=== PATIENT | female | born 1945 | race Caucasian/White ===

== ENCOUNTER 2017-05-19 14:13 | Inpatient (IN) | payer MEDICARE ==
[~2017-05-19] VITALS: Ht 167.6 cm; Wt 74.0 kg
[2017-05-19 15:30] VITALS: BP 137/82
[2017-05-19] MEDS ORDERED: ACETAMINOPHEN 325 MG TABLET PO PRN (16:15)
[2017-05-19] MEDS ORDERED: MAGNESIUM HYDROXIDE 2,400 MG/30 ML ORAL.SUSP. PO PRN (16:15)
[2017-05-19] MEDS ORDERED: METHYL SALICYLATE/MENTHOL TOPICAL OINTMENT 29GM TUBE. TP PRN (16:15)
[2017-05-19 16:37] VITALS: BP 135/82
[2017-05-19] MEDS ORDERED: GABA600T2 PO (17:01)
[2017-05-19] MEDS ORDERED: MULT-245 PO (17:01)
[2017-05-19] MEDS ORDERED: OMEG-44 PO (17:01)
[2017-05-19] MEDS ORDERED: ACET325T9 PO (17:01)
[2017-05-19] MEDS ORDERED: LIDO5JEL3 TOP (17:01)
[2017-05-19] MEDS ORDERED: ASPI1TAB62 PO (17:01)
[2017-05-19] MEDS ORDERED: LAMO150T2 PO (17:01)
[2017-05-19] MEDS ORDERED: IBUP100O25 PO (17:01)
[2017-05-19] MEDS ORDERED: NYST15CR TP (17:01)
[2017-05-19] MEDS ORDERED: ONDA4TAB11 PO (17:01)
[2017-05-19] MEDS ORDERED: MEMA10TA PO (17:01)
[2017-05-19] MEDS ORDERED: HYDR25TA PO (17:01)
[2017-05-19] MEDS ORDERED: SODI30SP NS (17:01)
[2017-05-19] MEDS ORDERED: MIRT15TA3 PO (17:01)
[2017-05-19] MEDS ORDERED: CLON1TAB3 PO (17:01)
[2017-05-19] MEDS ORDERED: KETO120S TP (17:01)
[2017-05-19] MEDS ORDERED: NYST1000 PO (17:01)
[2017-05-19] MEDS ORDERED: HYDR453.4 TP (17:01)
[2017-05-19] MEDS ORDERED: GABA-585 PO (17:01)
[2017-05-19] MEDS ORDERED: POLY17PO5 PO (17:01)
[2017-05-19] MEDS ORDERED: QUET400T4 PO (17:01)
[2017-05-19] MEDS ORDERED: CHOL10003 PO (17:01)
[2017-05-19] MEDS ORDERED: VENL150C PO (17:01)
[2017-05-19] MEDS ORDERED: FLUT16SP21 NS (17:01)
[2017-05-19] MEDS ORDERED: DONE5TAB7 PO (17:01)
[2017-05-19] MEDS ORDERED: PROP15DR40 EACHEYE ×2 (17:01)
[2017-05-19] MEDS ORDERED: GUAI600T47 PO (17:01)
[2017-05-19] MEDS ORDERED: FLUTICASONE 50MCG/NASAL SPRAY 16GM BOTTLE. NS PRN (18:15)
[2017-05-19] MEDS ORDERED: NYSTATIN 100,000 UNIT/GM TOPICAL CREAM 15GM TUBE. TP PRN (18:15)
[2017-05-19] MEDS ORDERED: LIDOCAINE 2% TP PRN (18:15)
[2017-05-19] MEDS ORDERED: APPLICATOR TP PRN (18:15)
[2017-05-19] MEDS ORDERED: GABAPENTIN 100 MG CAPSULE. PO PRN (18:15)
--- NOTE | 2017-05-19 18:28 | EKG ---
[address] [address] Test Date: 2017-05-19 Test Time: 18:25:34 Pat Name: STANLEY WALTERS Department: Room: [address] [place] [address] Gender: F Window Treatment Installer: : [id number] Requested By: BRIAN CHAPA Order Number: [id number] Reading MD: Darryl Arellano MD Measurements Intervals [place] Rate: 100 P: -136 IN: 122 QRS: 5 QRSD: 82 T: 36 QT: 332 QTc: 431 Interpretive Statements SINUS RHYTHM CANNOT RULE OUT INFERIOR INFARCT Electronically Signed On 05-23-2017 17:14:47 [employer]SEM[employer]ER FOR [employer] OVER MACHINE by Darryl Arellano MD
[2017-05-19] MEDS ORDERED: ONDANSETRON ODT 4 MG TAB.RAPDIS PO PRN (19:00)
[2017-05-19] MEDS ORDERED: POLYVINYL ALCOHOL 1.4% OPHTH SOLUTION 15ML BOTTLE. OU PRN (19:00)
[2017-05-19] MEDS: VENLAFAXINE 50 MG TABLET. PO SCH (20:12)
[2017-05-19] MEDS: OMEGA-3 FATTY ACIDS/FISH OIL 1,000 MG CAPSULE. PO SCH (20:12)
[2017-05-19] MEDS: QUEtiapine 100 MG TABLET. PO SCH (20:12)
[2017-05-19] MEDS: CHOLECALCIFEROL (VITAMIN D3) 1,000 UNIT TABLET PO SCH (20:12)
[2017-05-19] MEDS: GABAPENTIN 300 MG CAPSULE. PO SCH (20:12)
[2017-05-19] MEDS: DONEPEZIL HCL 5 MG TABLET. PO SCH (20:13)
[2017-05-19] MEDS: MIRTAZAPINE 15 MG TABLET PO SCH (20:13)
[2017-05-19] MEDS: clonazePAM 1 MG TABLET PO SCH (20:13)
[2017-05-19] MEDS: lamoTRIgine 150 MG TABLET. PO SCH (20:13)
[2017-05-19] MEDS ORDERED: LIDOCAINE 2% TOPICAL JELLY 5GM TUBE. TP PRN (20:15)
[2017-05-19] MEDS ORDERED: NON FORMULARY ITEM (Propylene Glycol/Peg 400 (Systane 0.3-0.4% Eye Drops) 1 DROP) EACHEYE SCH (21:00)
[2017-05-19 21:01] LABS: BASO % 1 % (0-3); EOS # 0.1 x10^3/uL (0.0-0.7); EOS % 2 % (0-3); HEMATOCRIT 37.6 % (36.0-47.0); HEMOGLOBIN 12.6 g/dL (12.0-15.5); LYMPH # 1.2 x10^3/uL (1.0-4.8); LYMPH % 24 % (24-48); MEAN CORPUSCULAR HEMOGLOBIN 27 pg (25-35); MEAN CORPUSCULAR HGB CONC 33 g/dL (31-37); MEAN CORPUSCULAR VOLUME 82 fL (79-100); MONO # 0.5 x10^3/uL (0.0-1.1); MONO % 9 % (0-9); NEUT # 3.3 x10^3uL (1.8-7.7); NEUT % 64 % (31-73); PLATELET COUNT 286 x10^3/uL (140-400); RED BLOOD COUNT 4.58 x10^6/uL (3.50-5.40); RED CELL DISTRIBUTION WIDTH 15.8 % (11.5-14.5); WHITE BLOOD COUNT 5.2 x10^3/uL (4.0-11.0)
[2017-05-19 21:24] LABS: ALBUMIN 3.6 g/dL (3.4-5.0); CALCIUM 9.5 mg/dL (8.5-10.1); CREATININE 1.1 mg/dL (0.6-1.0); GFR 48.7; MAGNESIUM 2.2 mg/dL (1.8-2.4); POTASSIUM 4.2 mmol/L (3.5-5.1); TOTAL BILIRUBIN 0.2 mg/dL (0.2-1.0); TOTAL PROTEIN 7.2 g/dL (6.4-8.2)
[2017-05-20] MEDS: POLYETHYLENE GLYCOL 3350 17 GM PACKET. PO SCH ×2 (00:14→20:17)
[2017-05-20 06:04] VITALS: BP 114/53
[2017-05-20] MEDS: lamoTRIgine 150 MG TABLET. PO SCH ×2 (07:37→20:17)
[2017-05-20] MEDS: GABAPENTIN 300 MG CAPSULE. PO SCH ×4 (07:37→20:17)
[2017-05-20] MEDS: clonazePAM 1 MG TABLET PO SCH ×2 (07:37→20:18)
[2017-05-20] MEDS: VENLAFAXINE 50 MG TABLET. PO SCH ×2 (07:37→14:00)
[2017-05-20] MEDS: MEMANTINE 5 MG TABLET. PO SCH (07:38)
[2017-05-20] MEDS: MULTIVITAMIN with MINERAL TABLET. PO SCH (07:38)
--- NOTE | 2017-05-20 09:59 | PDOC ---
Exam Note: Greg Note: Please also refer to the separate dictated note~for this date of service dictated separately.~Patient seen individually. Discussed the patient with Nursing staff reviewed the chart.~Reviewed interim history and current functioning. Reviewed vital signs,~Labs/ Radiology~and current medications noted below. Continue current treatment with the changes noted in the dictated addendum note. This is a late entry for date of service May 19, 2017 Assessment: Vital Signs: VS - Last 72 Hours, by Label Date Time Temp Pulse Resp B/P (MAP) Pulse Ox O2 Delivery O2 Flow Rate FiO2 05/20/17 06:04 97.9 88 18 114/53 (73) 93 05/19/17 16:37 98.8 100 18 135/82 (99) 94 Room Air 05/19/17 15:30 97.7 95 20 137/82 (100) 95 Vital Signs Date Time Temp Pulse Resp B/P (MAP) Pulse Ox O2 Delivery O2 Flow Rate FiO2 05/20/17 06:04 97.9 88 18 114/53 (73) 93 05/19/17 16:37 Room Air I&O Intake and Output 05/20/17 07:00 Intake Total 360 ml Balance 360 ml Intake Oral 360 ml Labs: Laboratory Tests Test 05/19/17 20:50 White Blood Count 5.2 x10^3/uL (4.0-11.0) Red Blood Count 4.58 x10^6/uL (3.50-5.40) Hemoglobin 12.6 g/dL (12.0-15.5) Hematocrit 37.6 % (36.0-47.0) Mean Corpuscular Volume 82 fL (79-100) Mean Corpuscular Hemoglobin 27 pg (25-35) Mean Corpuscular Hemoglobin Concent 33 g/dL (31-37) Red Cell Distribution Width 15.8 % (11.5-14.5) H Platelet Count 286 x10^3/uL (140-400) Neutrophils (%) (Auto) 64 % (31-73) Lymphocytes (%) (Auto) 24 % (24-48) Monocytes (%) (Auto) 9 % (0-9) Eosinophils (%) (Auto) 2 % (0-3) Basophils (%) (Auto) 1 % (0-3) Neutrophils # (Auto) 3.3 x10^3uL (1.8-7.7) Lymphocytes # (Auto) 1.2 x10^3/uL (1.0-4.8) Monocytes # (Auto) 0.5 x10^3/uL (0.0-1.1) Eosinophils # (Auto) 0.1 x10^3/uL (0.0-0.7) Basophils # (Auto) 0.0 x10^3/uL (0.0-0.2) Sodium Level 140 mmol/L (136-145) Potassium Level 4.2 mmol/L (3.5-5.1) Chloride Level 103 mmol/L (98-107) Carbon Dioxide Level 25 mmol/L (21-32) Anion Gap 12 (6-14) Blood Urea Nitrogen 16 mg/dL (7-20) Creatinine 1.1 mg/dL (0.6-1.0) H Estimated GFR (Cockcroft-Gault) 48.7 BUN/Creatinine Ratio 15 (6-20) Glucose Level 110 mg/dL (70-99) H Calcium Level 9.5 mg/dL (8.5-10.1) Magnesium Level 2.2 mg/dL (1.8-2.4) Total Bilirubin 0.2 mg/dL (0.2-1.0) Aspartate Amino Transferase (AST) 22 U/L (15-37) Alanine Aminotransferase (ALT) 24 U/L (14-59) Alkaline Phosphatase 109 U/L (46-116) Total Protein 7.2 g/dL (6.4-8.2) Albumin 3.6 g/dL (3.4-5.0) Albumin/Globulin Ratio 1.0 (1.0-1.7) Current Medications: Meds: Current Medications Acetaminophen (Tylenol) 650 mg PRN Q6HRS PRN PO PAIN / TEMP; Start 05/19/17 at 16:15; Stop 05/19/17 at 18:42; Status DC Multi-Ingredient Ointment (Analgesic [place]) 1 missael PRN QID PRN TP MUSCLE PAIN; Start 05/19/17 at 16:15 Al Hydroxide/Mg Hydroxide (Mylanta Plus Xs) 15 ml PRN AFTMEALHC PRN PO DYSPEPSIA; Start 05/19/17 at 16:15 Magnesium Hydroxide (Milk Of Magnesia) 2,400 mg PRN QHS PRN PO CONSTIPATION; Start 05/19/17 at 16:15 Clonazepam (KlonoPIN) 1 mg BID PO Last administered on 05/20/17at 07:37; Start 05/19/17 at 21:00 Donepezil HCl (Aricept) 5 mg QHS PO Last administered on 05/19/17at 20:13; Start 05/19/17 at 21:00 Lamotrigine (LaMICtal) 150 mg BID PO Last administered on 05/20/17at 07:37; Start 05/19/17 at 21:00 Memantine (Namenda) 5 mg DAILY PO Last administered on 05/20/17at 07:38; Start 05/20/17 at 09:00 Mirtazapine (Remeron) 15 mg QHS PO Last administered on 05/19/17at 20:13; Start 05/19/17 at 21:00 Quetiapine Fumarate (SEROquel) 400 mg QHS PO Last administered on 05/19/17at 20: 12; Start 05/19/17 at 21:00 Venlafaxine HCl (Effexor) 50 mg TID PO Last administered on 05/20/17at 07:37; Start 05/19/17 at 21:00 Acetaminophen (Tylenol) 650 mg PRN Q4HRS PRN PO PAIN; Start 05/19/17 at 18:15 Vitamin D (Vitamin D3) 3,000 unit QHS PO Last administered on 05/19/17at 20:12; Start 05/19/17 at 21:00 Fluticasone Propionate (Flonase) 2 spray PRN BID PRN NS ALLERGIES; Start at 18:15 Gabapentin (Neurontin) 100 mg PRN Q6HRS PRN PO ANXIETY; Start 05/19/17 at 18:15 Guaifenesin (Mucinex Er) 600 mg PRN BID PRN PO coughing; Start 05/19/17 at 18: 15 Ketoconazole (Nizoral 2% Shampoo) 1 missael QMONFR TP ; Start 05/26/17 at 16:00 Lidocaine HCl (Uro-Jet) 5 missael PRN Q4HRS PRN TP PAIN; Start 05/19/17 at 18:15; Stop 05/19/17 at 20:05; Status DC Nystatin (Mycostatin) 1 missael PRN BID PRN TP itching; Start 05/19/17 at 18:15 Polyethylene Glycol (miraLAX) 17 gm HS PO Last administered on 05/20/17at 00:14 ; Start 05/19/17 at 21:00 Gabapentin (Neurontin) 600 mg QID PO Last administered on 05/20/17at 07:37; Start 05/19/17 at 21:00 Multivitamins/ Calcium (Thera-M Plus) 1 tab DAILY PO Last administered on at 07:38; Start 05/20/17 at 09:00 Fish Oil (Fish Oil) 1,000 mg QHS PO Last administered on 05/19/17at 20:12; Start 05/19/17 at 21:00 Ondansetron HCl (Zofran Odt) 4 mg PRN Q6HRS PRN PO NAUSEA; Start 05/19/17 at 19 :00 Non-Formulary Medication 1 drop QID EACHEYE ; Start 05/19/17 at 21:00; Stop at 21:00; Status DC Artificial Tears (Artificial Tears) 1 drop PRN QID PRN OU DRY EYE; Start at 19:00 Lidocaine HCl (Xylocaine 2% Topical 5gm Tube) 1 missael PRN Q4HRS PRN TP PAIN; Start 05/19/17 at 20:15 Active Scripts Active Reported Vitamin D3 (Cholecalciferol (Vitamin D3)) 1,000 Unit Tablet 3,000 Unit PO QHS Systane 0.3-0.4% Eye Drops (Propylene Glycol/Peg 400) 15 Ml Drops 1 Drop EACHEYE QID Systane 0.3-0.4% Eye Drops (Propylene Glycol/Peg 400) 15 Ml Drops 1 Drop EACHEYE QIDPRN PRN Pain Reliever Plus Tablet (Aspirin/Acetaminophen/Caffeine) 1 Each Tablet 2 Each PO PRN PRN Ondansetron Hcl 4 Mg Tablet 4 Mg PO PRN Q6HRS PRN Nystatin 100,000 Unit/1 Ml Oral.susp 100,000 Unit PO Nystatin 15 Gm Cream..g. 1 Missael TP PRN BID PRN Miralax (Polyethylene Glycol 3350) 17 Gm Powd.pack 17 Gm PO HS Lidocaine Hcl 5 Ml Jel..ml. 5 Ml TOP PRN Q4HRS Ketoconazole 120 Ml Shampoo 1 Missael TP TWICE WEEKLY Ibuprofen 100 Mg/5 Ml Oral.susp 200 Mg PO PRN TID PRN Hydroxyzine Hcl 25 Mg Tablet 25 Mg PO PRN Q4HRS PRN Hydrocortisone 453.6 Gm Oint...g. 1 Missael TP PRN BID PRN Epa-Dha 720 Softgel ([place]-3/Dha/Epa/Fish Oil) 1 Each Capsule 1 Each PO QHS Donepezil Hcl 5 Mg Tablet 5 Mg PO QHS Saline Nasal [place] (Sodium Chloride) 30 Ml [place] 1 Spr NS PRN PRN Tylenol (Acetaminophen) 325 Mg Tablet 650 Mg PO PRN Q4HRS PRN Seroquel (Quetiapine Fumarate) 400 Mg Tablet 400 Mg PO HS Mirtazapine 15 Mg Tablet 15 Mg PO QHS Lamotrigine 150 Mg Tablet 150 Mg PO BID Fluticasone Propionate Nasal [place] (Fluticasone Propionate) 16 Gm [place].susp 2 [place] NS PRN BID PRN Effexor Xr (Venlafaxine Hcl) 150 Mg Cap.er.24h 150 Mg PO DAILY Multi Vitamin Daily (Multivitamin) 1 Each Tablet 1 Each PO DAILY Mucinex (Guaifenesin) 600 Mg Tablet.er 600 Mg PO PRN BID PRN Namenda (Memantine Hcl) 10 Mg Tablet 5 Mg PO DAILY Gabapentin 600 Mg Tablet 600 Mg PO QID Gabapentin 100 Mg Capsule 100 Mg PO PRN Q6HRS Clonazepam 1 Mg Tablet 1 Mg PO BID I have reviewed the current psychotropics carefully including drug interactions. Risk benefit ratio favors no change other than as noted in my dictated progress note. Diagnosis: Problems: (1) Major depression (2) Anxiety (3) Bipolar affective disorder, mixed (4) Anxiety disorder (5) Major depressive disorder, recurrent episode (6) Impulse control disorder BRIAN CHAPA MD May 20, 2017 09:58
[2017-05-20 11:08] LABS: THYROID STIM HORMONE (TSH) 2.483 uIU/mL (0.358-3.740)
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
[2017-05-20 12:12] LABS: T3 TOTAL 63 ng/dL (71-180); THYROXINE 4.7 ug/dL (4.5-12.0)
[2017-05-20] MEDS ORDERED: POLYVINYL ALCOHOL 1.4% OPHTH SOLUTION 15ML BOTTLE. OU PRN (14:59)
[2017-05-20] MEDS ORDERED: LIDOCAINE 2% TOPICAL JELLY 5GM TUBE. TP PRN (14:59)
[2017-05-20 16:20] VITALS: BP 140/72
[2017-05-20 20:08] LABS: HEMOGLOBIN A1C 4.8 % (4.8-5.6)
[2017-05-20] MEDS: DONEPEZIL HCL 5 MG TABLET. PO SCH (20:16)
[2017-05-20] MEDS: CHOLECALCIFEROL (VITAMIN D3) 1,000 UNIT TABLET PO SCH (20:16)
[2017-05-20] MEDS: OMEGA-3 FATTY ACIDS/FISH OIL 1,000 MG CAPSULE. PO SCH (20:16)
[2017-05-20] MEDS: MIRTAZAPINE 15 MG TABLET PO SCH (20:17)
[2017-05-20] MEDS: QUEtiapine 100 MG TABLET. PO SCH (20:18)
[2017-05-20] MEDS: lamoTRIgine 100 MG TABLET. PO SCH (21:00)
[2017-05-20 21:42] LABS: BACTERIA,URINE 0 /HPF (0-FEW); BILIRUBIN,URINE NEG (NEG); CLARITY,URINE HAZY; COLOR,URINE YELLOW; GLUCOSE,URINE NEG (NEG); NITRITE,URINE NEG (NEG); SQUAMOUS EPITHELIAL CELL,UR FEW /LPF; UROBILINOGEN,URINE 0.2 mg/dL (0.2 mg/dL); WBC,URINE 20-40 /HPF (0-4)
[2017-05-20 21:43] LABS: AMORPHOUS SEDIMENT,UR PRESENT /HPF
--- NOTE | 2017-05-20 22:26 | PDOC ---
Exam Note: Greg Note: Please also refer to the separate dictated note~for this date of service dictated separately.~Patient seen individually. Discussed the patient with Nursing staff reviewed the chart.~Reviewed interim history and current functioning. Reviewed vital signs,~Labs/ Radiology~and current medications noted below. Continue current treatment with the changes noted in the dictated addendum note Assessment: Vital Signs: Vital Signs Date Time Temp Pulse Resp B/P (MAP) Pulse Ox O2 Delivery O2 Flow Rate FiO2 05/20/17 16:20 97.6 110 20 140/72 (94) 94 05/19/17 16:37 Room Air I&O Intake and Output 05/20/17 07:00 Intake Total 360 ml Balance 360 ml Intake Oral 360 ml Labs: Laboratory Tests Test 05/20/17 19:28 Urine Collection Type Unknown Urine Color Yellow Urine Clarity Hazy Urine pH 7.0 Urine Specific [place] 1.015 Urine Protein Neg (NEG-TRACE) Urine Glucose (UA) Neg mg/dL (NEG) Urine Ketones (Stick) Neg mg/dL (NEG) Urine Blood Neg (NEG) Urine Nitrite Neg (NEG) Urine Bilirubin Neg (NEG) Urine Urobilinogen Dipstick 0.2 mg/dL (0.2 mg/dL) Urine Leukocyte Esterase Trace (NEG) Urine RBC 1-2 /HPF (0-2) Urine WBC 20-40 /HPF (0-4) Urine Squamous Epithelial Cells Few /LPF Urine Transitional Epithelial Cells Few /LPF Urine Amorphous Sediment Present /HPF Urine Bacteria 0 /HPF (0-FEW) Urine Mucus Slight /LPF Current Medications: Meds: Current Medications Acetaminophen (Tylenol) 650 mg PRN Q6HRS PRN PO PAIN / TEMP; Start 05/19/17 at 16:15; Stop 05/19/17 at 18:42; Status DC Multi-Ingredient Ointment (Analgesic [place]) 1 missael PRN QID PRN TP MUSCLE PAIN; Start 05/19/17 at 16:15 Al Hydroxide/Mg Hydroxide (Mylanta Plus Xs) 15 ml PRN AFTMEALHC PRN PO DYSPEPSIA; Start 05/19/17 at 16:15 Magnesium Hydroxide (Milk Of Magnesia) 2,400 mg PRN QHS PRN PO CONSTIPATION; Start 05/19/17 at 16:15 Clonazepam (KlonoPIN) 1 mg BID PO Last administered on 05/20/17at 20:18; Start 05/19/17 at 21:00 Donepezil HCl (Aricept) 5 mg QHS PO Last administered on 05/20/17at 20:16; Start 05/19/17 at 21:00 Lamotrigine (LaMICtal) 150 mg BID PO Last administered on 05/20/17at 20:17; Start 05/19/17 at 21:00; Stop 05/20/17 at 20:37; Status DC Memantine (Namenda) 5 mg DAILY PO Last administered on 05/20/17at 07:38; Start 05/20/17 at 09:00 Mirtazapine (Remeron) 15 mg QHS PO Last administered on 05/20/17at 20:17; Start 05/19/17 at 21:00 Quetiapine Fumarate (SEROquel) 400 mg QHS PO Last administered on 05/20/17at 20: 18; Start 05/19/17 at 21:00 Venlafaxine HCl (Effexor) 50 mg TID PO Last administered on 05/20/17at 14:00; Start 05/19/17 at 21:00; Stop 05/20/17 at 19:25; Status DC Acetaminophen (Tylenol) 650 mg PRN Q4HRS PRN PO PAIN; Start 05/19/17 at 18:15 Vitamin D (Vitamin D3) 3,000 unit QHS PO Last administered on 05/20/17at 20:16; Start 05/19/17 at 21:00 Fluticasone Propionate (Flonase) 2 spray PRN BID PRN NS ALLERGIES; Start at 18:15 Gabapentin (Neurontin) 100 mg PRN Q6HRS PRN PO ANXIETY; Start 05/19/17 at 18:15 ; Stop 05/20/17 at 19:25; Status DC Guaifenesin (Mucinex Er) 600 mg PRN BID PRN PO coughing; Start 05/19/17 at 18: 15 Ketoconazole (Nizoral 2% Shampoo) 1 missael QMONFR TP ; Start 05/26/17 at 16:00 Lidocaine HCl (Uro-Jet) 5 missael PRN Q4HRS PRN TP PAIN; Start 05/19/17 at 18:15; Stop 05/19/17 at 20:05; Status DC Nystatin (Mycostatin) 1 missael PRN BID PRN TP itching; Start 05/19/17 at 18:15 Polyethylene Glycol (miraLAX) 17 gm HS PO Last administered on 05/20/17at 20:17 ; Start 05/19/17 at 21:00 Gabapentin (Neurontin) 600 mg QID PO Last administered on 05/20/17at 17:21; Start 05/19/17 at 21:00; Stop 05/20/17 at 19:25; Status DC Multivitamins/ Calcium (Thera-M Plus) 1 tab DAILY PO Last administered on at 07:38; Start 05/20/17 at 09:00 Fish Oil (Fish Oil) 1,000 mg QHS PO Last administered on 05/20/17at 20:16; Start 05/19/17 at 21:00 Ondansetron HCl (Zofran Odt) 4 mg PRN Q6HRS PRN PO NAUSEA; Start 05/19/17 at 19 :00 Non-Formulary Medication 1 drop QID EACHEYE ; Start 05/19/17 at 21:00; Stop at 21:00; Status DC Artificial Tears (Artificial Tears) 1 drop PRN QID PRN OU DRY EYE; Start at 19:00; Stop 05/20/17 at 14:59; Status DC Lidocaine HCl (Xylocaine 2% Topical 5gm Tube) 1 missael PRN Q4HRS PRN TP PAIN; Start 05/19/17 at 20:15; Stop 05/20/17 at 14:59; Status DC Lidocaine HCl (Xylocaine 2% Topical 5gm Tube) 1 missael PRN Q4HRS PRN TP PAIN; Start 05/20/17 at 14:59 Artificial Tears (Artificial Tears) 1 drop PRN QID PRN OU DRY EYE; Start at 14:59 Gabapentin (Neurontin) 600 mg TID PO Last administered on 05/20/17at 20:17; Start 05/20/17 at 21:00 Duloxetine HCl (Cymbalta) 30 mg DAILY PO ; Start 05/21/17 at 09:00 Lamotrigine (LaMICtal) 150 mg DAILY PO ; Start 05/21/17 at 09:00 Lamotrigine (LaMICtal) 200 mg HS PO ; Start 05/20/17 at 21:00 Active Scripts Active Reported Vitamin D3 (Cholecalciferol (Vitamin D3)) 1,000 Unit Tablet 3,000 Unit PO QHS Systane 0.3-0.4% Eye Drops (Propylene Glycol/Peg 400) 15 Ml Drops 1 Drop EACHEYE QID Systane 0.3-0.4% Eye Drops (Propylene Glycol/Peg 400) 15 Ml Drops 1 Drop EACHEYE QIDPRN PRN Pain Reliever Plus Tablet (Aspirin/Acetaminophen/Caffeine) 1 Each Tablet 2 Each PO PRN PRN Ondansetron Hcl 4 Mg Tablet 4 Mg PO PRN Q6HRS PRN Nystatin 100,000 Unit/1 Ml Oral.susp 100,000 Unit PO Nystatin 15 Gm Cream..g. 1 Missael TP PRN BID PRN Miralax (Polyethylene Glycol 3350) 17 Gm Powd.pack 17 Gm PO HS Lidocaine Hcl 5 Ml Jel..ml. 5 Ml TOP PRN Q4HRS Ketoconazole 120 Ml Shampoo 1 Missael TP TWICE WEEKLY Ibuprofen 100 Mg/5 Ml Oral.susp 200 Mg PO PRN TID PRN Hydroxyzine Hcl 25 Mg Tablet 25 Mg PO PRN Q4HRS PRN Hydrocortisone 453.6 Gm Oint...g. 1 Missael TP PRN BID PRN Epa-Dha 720 Softgel ([place]-3/Dha/Epa/Fish Oil) 1 Each Capsule 1 Each PO QHS Donepezil Hcl 5 Mg Tablet 5 Mg PO QHS Saline Nasal [place] (Sodium Chloride) 30 Ml [place] 1 Spr NS PRN PRN Tylenol (Acetaminophen) 325 Mg Tablet 650 Mg PO PRN Q4HRS PRN Seroquel (Quetiapine Fumarate) 400 Mg Tablet 400 Mg PO HS Mirtazapine 15 Mg Tablet 15 Mg PO QHS Lamotrigine 150 Mg Tablet 150 Mg PO BID Fluticasone Propionate Nasal [place] (Fluticasone Propionate) 16 Gm [place].susp 2 [place] NS PRN BID PRN Effexor Xr (Venlafaxine Hcl) 150 Mg Cap.er.24h 150 Mg PO DAILY Multi Vitamin Daily (Multivitamin) 1 Each Tablet 1 Each PO DAILY Mucinex (Guaifenesin) 600 Mg Tablet.er 600 Mg PO PRN BID PRN Namenda (Memantine Hcl) 10 Mg Tablet 5 Mg PO DAILY Gabapentin 600 Mg Tablet 600 Mg PO QID Gabapentin 100 Mg Capsule 100 Mg PO PRN Q6HRS Clonazepam 1 Mg Tablet 1 Mg PO BID I have reviewed the current psychotropics carefully including drug interactions. Risk benefit ratio favors no change other than as noted in my dictated progress note. Diagnosis: Problems: (1) Major depression (2) Anxiety (3) Bipolar affective disorder, mixed (4) Anxiety disorder (5) Major depressive disorder, recurrent episode (6) Impulse control disorder BRIAN CHAPA MD May 20, 2017 22:26
[2017-05-21 06:33] VITALS: BP 102/68
[2017-05-21] MEDS: MEMANTINE 5 MG TABLET. PO SCH (07:59)
[2017-05-21] MEDS: GABAPENTIN 300 MG CAPSULE. PO SCH ×3 (07:59→19:38)
[2017-05-21] MEDS: MULTIVITAMIN with MINERAL TABLET. PO SCH (07:59)
[2017-05-21] MEDS: clonazePAM 1 MG TABLET PO SCH ×2 (08:00→19:39)
[2017-05-21] MEDS: DULoxetine HCL 30 MG CAPSULE.DR PO SCH (08:00)
[2017-05-21] MEDS: lamoTRIgine 150 MG TABLET. PO SCH (08:02)
[2017-05-21] MEDS ORDERED: FOSFOMYCIN TROMETHAMINE 3 GM PACKET PO ONE (15:00)
[2017-05-21 16:22] VITALS: BP 119/73
[2017-05-21] MEDS: PRENATAL MULTIVITAMIN TABLET. PO SCH (17:00)
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
[2017-05-21] MEDS: OMEGA-3 FATTY ACIDS/FISH OIL 1,000 MG CAPSULE. PO SCH (19:37)
[2017-05-21] MEDS: MIRTAZAPINE 15 MG TABLET PO SCH (19:37)
[2017-05-21] MEDS: QUEtiapine 100 MG TABLET. PO SCH (19:38)
[2017-05-21] MEDS: lamoTRIgine 100 MG TABLET. PO SCH (19:38)
[2017-05-21] MEDS: CHOLECALCIFEROL (VITAMIN D3) 1,000 UNIT TABLET PO SCH (19:38)
[2017-05-21] MEDS: DONEPEZIL HCL 5 MG TABLET. PO SCH (19:39)
[2017-05-21] MEDS: POLYETHYLENE GLYCOL 3350 17 GM PACKET. PO SCH (19:40)
[2017-05-21] MEDS: MAG HYDROX/AL HYDROX/SIMETH 30 ML ORAL.SUSP PO PRN (20:12)
--- NOTE | 2017-05-21 20:19 | PDOC ---
Exam Note: Greg Note: Please also refer to the separate dictated note~for this date of service dictated separately.~Patient seen individually. Discussed the patient with Nursing staff reviewed the chart.~Reviewed interim history and current functioning. Reviewed vital signs,~Labs/ Radiology~and current medications noted below. Continue current treatment with the changes noted in the dictated addendum note Assessment: Vital Signs: Vital Signs Date Time Temp Pulse Resp B/P (MAP) Pulse Ox O2 Delivery O2 Flow Rate FiO2 05/21/17 16:22 97.8 98 16 119/73 (88) 97 Room Air I&O Intake and Output 05/21/17 07:00 Intake Total 1200 ml Balance 1200 ml Intake Oral 1200 ml # Bowel Movements 2 Current Medications: Meds: Current Medications Acetaminophen (Tylenol) 650 mg PRN Q6HRS PRN PO PAIN / TEMP; Start 05/19/17 at 16:15; Stop 05/19/17 at 18:42; Status DC Multi-Ingredient Ointment (Analgesic [place]) 1 missael PRN QID PRN TP MUSCLE PAIN; Start 05/19/17 at 16:15 Al Hydroxide/Mg Hydroxide (Mylanta Plus Xs) 15 ml PRN AFTMEALHC PRN PO DYSPEPSIA; Start 05/19/17 at 16:15 Magnesium Hydroxide (Milk Of Magnesia) 2,400 mg PRN QHS PRN PO CONSTIPATION; Start 05/19/17 at 16:15 Clonazepam (KlonoPIN) 1 mg BID PO Last administered on 05/21/17at 19:39; Start 05/19/17 at 21:00 Donepezil HCl (Aricept) 5 mg QHS PO Last administered on 05/21/17at 19:39; Start 05/19/17 at 21:00 Lamotrigine (LaMICtal) 150 mg BID PO Last administered on 05/20/17at 20:17; Start 05/19/17 at 21:00; Stop 05/20/17 at 20:37; Status DC Memantine (Namenda) 5 mg DAILY PO Last administered on 05/21/17at 07:59; Start 05/20/17 at 09:00 Mirtazapine (Remeron) 15 mg QHS PO Last administered on 05/21/17at 19:37; Start 05/19/17 at 21:00 Quetiapine Fumarate (SEROquel) 400 mg QHS PO Last administered on 05/21/17at 19: 38; Start 05/19/17 at 21:00 Venlafaxine HCl (Effexor) 50 mg TID PO Last administered on 05/20/17at 14:00; Start 05/19/17 at 21:00; Stop 05/20/17 at 19:25; Status DC Acetaminophen (Tylenol) 650 mg PRN Q4HRS PRN PO PAIN; Start 05/19/17 at 18:15 Vitamin D (Vitamin D3) 3,000 unit QHS PO Last administered on 05/21/17at 19:38; Start 05/19/17 at 21:00 Fluticasone Propionate (Flonase) 2 spray PRN BID PRN NS ALLERGIES; Start at 18:15 Gabapentin (Neurontin) 100 mg PRN Q6HRS PRN PO ANXIETY; Start 05/19/17 at 18:15 ; Stop 05/20/17 at 19:25; Status DC Guaifenesin (Mucinex Er) 600 mg PRN BID PRN PO coughing; Start 05/19/17 at 18: 15 Ketoconazole (Nizoral 2% Shampoo) 1 missael QMONFR TP ; Start 05/26/17 at 16:00 Lidocaine HCl (Uro-Jet) 5 missael PRN Q4HRS PRN TP PAIN; Start 05/19/17 at 18:15; Stop 05/19/17 at 20:05; Status DC Nystatin (Mycostatin) 1 missael PRN BID PRN TP itching; Start 05/19/17 at 18:15 Polyethylene Glycol (miraLAX) 17 gm HS PO Last administered on 05/21/17at 19:40 ; Start 05/19/17 at 21:00 Gabapentin (Neurontin) 600 mg QID PO Last administered on 05/20/17at 17:21; Start 05/19/17 at 21:00; Stop 05/20/17 at 19:25; Status DC Multivitamins/ Calcium (Thera-M Plus) 1 tab DAILY PO Last administered on at 07:59; Start 05/20/17 at 09:00; Stop 05/21/17 at 14:59; Status DC Fish Oil (Fish Oil) 1,000 mg QHS PO Last administered on 05/21/17at 19:37; Start 05/19/17 at 21:00 Ondansetron HCl (Zofran Odt) 4 mg PRN Q6HRS PRN PO NAUSEA; Start 05/19/17 at 19 :00 Non-Formulary Medication 1 drop QID EACHEYE ; Start 05/19/17 at 21:00; Stop at 21:00; Status DC Artificial Tears (Artificial Tears) 1 drop PRN QID PRN OU DRY EYE; Start at 19:00; Stop 05/20/17 at 14:59; Status DC Lidocaine HCl (Xylocaine 2% Topical 5gm Tube) 1 missael PRN Q4HRS PRN TP PAIN; Start 05/19/17 at 20:15; Stop 05/20/17 at 14:59; Status DC Lidocaine HCl (Xylocaine 2% Topical 5gm Tube) 1 missael PRN Q4HRS PRN TP PAIN; Start 05/20/17 at 14:59 Artificial Tears (Artificial Tears) 1 drop PRN QID PRN OU DRY EYE; Start at 14:59 Gabapentin (Neurontin) 600 mg TID PO Last administered on 05/21/17at 19:38; Start 05/20/17 at 21:00 Duloxetine HCl (Cymbalta) 30 mg DAILY PO Last administered on 05/21/17at 08:00; Start 05/21/17 at 09:00 Lamotrigine (LaMICtal) 150 mg DAILY PO Last administered on 05/21/17at 08:02; Start 05/21/17 at 09:00 Lamotrigine (LaMICtal) 200 mg HS PO Last administered on 05/21/17at 19:38; Start 05/20/17 at 21:00 Prenat Multivit/ [place]/Iron/Folic Ac (Multivitamin ) 1 tab DAILYBFRSUP PO Last administered on 05/21/17at 17:00; Start 05/21/17 at 17:00 Fosfomycin Tromethamine (Monurol) 3 gm 1X ONCE PO Last administered on at 15:00; Start 05/21/17 at 15:00; Stop 05/21/17 at 15:01; Status DC Active Scripts Active Reported Vitamin D3 (Cholecalciferol (Vitamin D3)) 1,000 Unit Tablet 3,000 Unit PO QHS Systane 0.3-0.4% Eye Drops (Propylene Glycol/Peg 400) 15 Ml Drops 1 Drop EACHEYE QID Systane 0.3-0.4% Eye Drops (Propylene Glycol/Peg 400) 15 Ml Drops 1 Drop EACHEYE QIDPRN PRN Pain Reliever Plus Tablet (Aspirin/Acetaminophen/Caffeine) 1 Each Tablet 2 Each PO PRN PRN Ondansetron Hcl 4 Mg Tablet 4 Mg PO PRN Q6HRS PRN Nystatin 100,000 Unit/1 Ml Oral.susp 100,000 Unit PO Nystatin 15 Gm Cream..g. 1 Missael TP PRN BID PRN Miralax (Polyethylene Glycol 3350) 17 Gm Powd.pack 17 Gm PO HS Lidocaine Hcl 5 Ml Jel..ml. 5 Ml TOP PRN Q4HRS Ketoconazole 120 Ml Shampoo 1 Missael TP TWICE WEEKLY Ibuprofen 100 Mg/5 Ml Oral.susp 200 Mg PO PRN TID PRN Hydroxyzine Hcl 25 Mg Tablet 25 Mg PO PRN Q4HRS PRN Hydrocortisone 453.6 Gm Oint...g. 1 Missael TP PRN BID PRN Epa-Dha 720 Softgel ([place]-3/Dha/Epa/Fish Oil) 1 Each Capsule 1 Each PO QHS Donepezil Hcl 5 Mg Tablet 5 Mg PO QHS Saline Nasal [place] (Sodium Chloride) 30 Ml [place] 1 Spr NS PRN PRN Tylenol (Acetaminophen) 325 Mg Tablet 650 Mg PO PRN Q4HRS PRN Seroquel (Quetiapine Fumarate) 400 Mg Tablet 400 Mg PO HS Mirtazapine 15 Mg Tablet 15 Mg PO QHS Lamotrigine 150 Mg Tablet 150 Mg PO BID Fluticasone Propionate Nasal [place] (Fluticasone Propionate) 16 Gm [place].susp 2 [place] NS PRN BID PRN Effexor Xr (Venlafaxine Hcl) 150 Mg Cap.er.24h 150 Mg PO DAILY Multi Vitamin Daily (Multivitamin) 1 Each Tablet 1 Each PO DAILY Mucinex (Guaifenesin) 600 Mg Tablet.er 600 Mg PO PRN BID PRN Namenda (Memantine Hcl) 10 Mg Tablet 5 Mg PO DAILY Gabapentin 600 Mg Tablet 600 Mg PO QID Gabapentin 100 Mg Capsule 100 Mg PO PRN Q6HRS Clonazepam 1 Mg Tablet 1 Mg PO BID I have reviewed the current psychotropics carefully including drug interactions. Risk benefit ratio favors no change other than as noted in my dictated progress note. Diagnosis: Problems: (1) Major depression (2) Anxiety (3) Bipolar affective disorder, mixed (4) Anxiety disorder (5) Major depressive disorder, recurrent episode (6) Impulse control disorder BRIAN CHAPA MD May 21, 2017 20:19
--- NOTE | 2017-05-21 23:26 | PN ---
DATE: 05/20/2017 This is a late entry 05/20/2017 covers elements not covered in my initial note 05/20/2017. I met with the patient in the evening of 05/20/2017. The patient slept 6-1/2 hours previous evening, more compliant, less labile and crying. I talked to her at length. Reviewed a history at great length. She denies any manic episodes, but repeated depressive episodes in a cyclical manner, probably consistent with bipolar 2 disorder and past history of ECT treatment which she looks upon very negatively. She did well on lithium, but this was discontinued due to toxicity and side effects. REVIEW OF SYSTEMS: Ambulation impaired, in wheelchair. No CV, , pulmonary, eye, ENT system symptoms on review. MENTAL STATUS EXAM: Oriented reasonably. Speech is coherent, abstraction fair, computation impaired, language function intact. Short term memory is impaired. Slept 6-1/2 hours previous evening. LABORATORY DATA: Reviewed. IMPRESSION: Bipolar disorder, mixed versus bipolar 2 disorder, depressed, anxiety disorder, unspecified. PLAN: Stop the Neurontin, p.r.n. Reduce the scheduled Neurontin from 600 mg 4 times a day to 600 mg 3 times a day, increase Lamictal from 150 b.i.d. to 150 in the morning, 200 in the evening. Change Effexor 50 t.i.d. to Cymbalta 30 mg a day. Stop the Neurontin, p.r.n. Continue Remeron, Seroquel for now. We will also stop the Geodon p.r.n. Continue Klonopin may need to reduce this in due course. MAN Vidal CHAPA MD DR: ANTONIO/gianfranco JOB#: [id number] / [id number]
[2017-05-22 06:08] VITALS: BP 103/57
[2017-05-22] MEDS: clonazePAM 1 MG TABLET PO SCH ×2 (08:07→19:58)
[2017-05-22] MEDS: GABAPENTIN 300 MG CAPSULE. PO SCH ×3 (08:07→19:57)
[2017-05-22] MEDS: lamoTRIgine 150 MG TABLET. PO SCH (08:08)
[2017-05-22] MEDS: MEMANTINE 5 MG TABLET. PO SCH (08:08)
[2017-05-22] MEDS: DULoxetine HCL 30 MG CAPSULE.DR PO SCH (08:08)
[2017-05-22 16:05] VITALS: BP 121/78
[2017-05-22] MEDS: PRENATAL MULTIVITAMIN TABLET. PO SCH (18:01)
[2017-05-22] MEDS: OMEGA-3 FATTY ACIDS/FISH OIL 1,000 MG CAPSULE. PO SCH (19:56)
[2017-05-22] MEDS: DONEPEZIL HCL 5 MG TABLET. PO SCH (19:56)
[2017-05-22] MEDS: MIRTAZAPINE 15 MG TABLET PO SCH (19:57)
[2017-05-22] MEDS: lamoTRIgine 100 MG TABLET. PO SCH (19:57)
[2017-05-22] MEDS: CHOLECALCIFEROL (VITAMIN D3) 1,000 UNIT TABLET PO SCH (19:57)
[2017-05-22] MEDS: POLYETHYLENE GLYCOL 3350 17 GM PACKET. PO SCH (19:57)
[2017-05-22] MEDS: QUEtiapine 100 MG TABLET. PO SCH (19:57)
--- NOTE | 2017-05-22 20:11 | PDOC ---
Exam Note: Greg Note: Please also refer to the separate dictated note~for this date of service dictated separately.~Patient seen individually. Discussed the patient with Nursing staff reviewed the chart.~Reviewed interim history and current functioning. Reviewed vital signs,~Labs/ Radiology~and current medications noted below. Continue current treatment with the changes noted in the dictated addendum note Assessment: Vital Signs: Vital Signs Date Time Temp Pulse Resp B/P (MAP) Pulse Ox O2 Delivery O2 Flow Rate FiO2 05/22/17 16:05 97.5 66 18 121/78 (92) 95 05/21/17 16:22 Room Air I&O Intake and Output 05/22/17 07:00 Intake Total 840 ml Balance 840 ml Intake Oral 840 ml # Voids 1 # Bowel Movements 2 Current Medications: Meds: Current Medications Acetaminophen (Tylenol) 650 mg PRN Q6HRS PRN PO PAIN / TEMP; Start 05/19/17 at 16:15; Stop 05/19/17 at 18:42; Status DC Multi-Ingredient Ointment (Analgesic [place]) 1 missael PRN QID PRN TP MUSCLE PAIN; Start 05/19/17 at 16:15 Al Hydroxide/Mg Hydroxide (Mylanta Plus Xs) 15 ml PRN AFTMEALHC PRN PO DYSPEPSIA Last administered on 05/21/17at 20:12; Start 05/19/17 at 16:15 Magnesium Hydroxide (Milk Of Magnesia) 2,400 mg PRN QHS PRN PO CONSTIPATION; Start 05/19/17 at 16:15 Clonazepam (KlonoPIN) 1 mg BID PO Last administered on 05/22/17at 19:58; Start 05/19/17 at 21:00 Donepezil HCl (Aricept) 5 mg QHS PO Last administered on 05/22/17at 19:56; Start 05/19/17 at 21:00 Lamotrigine (LaMICtal) 150 mg BID PO Last administered on 05/20/17at 20:17; Start 05/19/17 at 21:00; Stop 05/20/17 at 20:37; Status DC Memantine (Namenda) 5 mg DAILY PO Last administered on 05/22/17at 08:08; Start 05/20/17 at 09:00 Mirtazapine (Remeron) 15 mg QHS PO Last administered on 05/22/17at 19:57; Start 05/19/17 at 21:00 Quetiapine Fumarate (SEROquel) 400 mg QHS PO Last administered on 05/22/17at 19: 57; Start 05/19/17 at 21:00 Venlafaxine HCl (Effexor) 50 mg TID PO Last administered on 05/20/17at 14:00; Start 05/19/17 at 21:00; Stop 05/20/17 at 19:25; Status DC Acetaminophen (Tylenol) 650 mg PRN Q4HRS PRN PO PAIN; Start 05/19/17 at 18:15 Vitamin D (Vitamin D3) 3,000 unit QHS PO Last administered on 05/22/17at 19:57; Start 05/19/17 at 21:00 Fluticasone Propionate (Flonase) 2 spray PRN BID PRN NS ALLERGIES; Start at 18:15 Gabapentin (Neurontin) 100 mg PRN Q6HRS PRN PO ANXIETY; Start 05/19/17 at 18:15 ; Stop 05/20/17 at 19:25; Status DC Guaifenesin (Mucinex Er) 600 mg PRN BID PRN PO coughing; Start 05/19/17 at 18: 15 Ketoconazole (Nizoral 2% Shampoo) 1 missael QMONFR TP ; Start 05/26/17 at 16:00 Lidocaine HCl (Uro-Jet) 5 missael PRN Q4HRS PRN TP PAIN; Start 05/19/17 at 18:15; Stop 05/19/17 at 20:05; Status DC Nystatin (Mycostatin) 1 missael PRN BID PRN TP itching; Start 05/19/17 at 18:15 Polyethylene Glycol (miraLAX) 17 gm HS PO Last administered on 05/22/17at 19:57 ; Start 05/19/17 at 21:00 Gabapentin (Neurontin) 600 mg QID PO Last administered on 05/20/17at 17:21; Start 05/19/17 at 21:00; Stop 05/20/17 at 19:25; Status DC Multivitamins/ Calcium (Thera-M Plus) 1 tab DAILY PO Last administered on at 07:59; Start 05/20/17 at 09:00; Stop 05/21/17 at 14:59; Status DC Fish Oil (Fish Oil) 1,000 mg QHS PO Last administered on 05/22/17at 19:56; Start 05/19/17 at 21:00 Ondansetron HCl (Zofran Odt) 4 mg PRN Q6HRS PRN PO NAUSEA; Start 05/19/17 at 19 :00 Non-Formulary Medication 1 drop QID EACHEYE ; Start 05/19/17 at 21:00; Stop at 21:00; Status DC Artificial Tears (Artificial Tears) 1 drop PRN QID PRN OU DRY EYE; Start at 19:00; Stop 05/20/17 at 14:59; Status DC Lidocaine HCl (Xylocaine 2% Topical 5gm Tube) 1 missael PRN Q4HRS PRN TP PAIN; Start 05/19/17 at 20:15; Stop 05/20/17 at 14:59; Status DC Lidocaine HCl (Xylocaine 2% Topical 5gm Tube) 1 missael PRN Q4HRS PRN TP PAIN; Start 05/20/17 at 14:59 Artificial Tears (Artificial Tears) 1 drop PRN QID PRN OU DRY EYE; Start at 14:59 Gabapentin (Neurontin) 600 mg TID PO Last administered on 05/22/17at 19:57; Start 05/20/17 at 21:00 Duloxetine HCl (Cymbalta) 30 mg DAILY PO Last administered on 05/22/17at 08:08; Start 05/21/17 at 09:00 Lamotrigine (LaMICtal) 150 mg DAILY PO Last administered on 05/22/17at 08:08; Start 05/21/17 at 09:00 Lamotrigine (LaMICtal) 200 mg HS PO Last administered on 05/22/17at 19:57; Start 05/20/17 at 21:00 Prenat Multivit/ Emergency Room Physician Assistant/Iron/Folic Ac (Multivitamin ) 1 tab DAILYBFRSUP PO Last administered on 05/22/17at 18:01; Start 05/21/17 at 17:00 Fosfomycin Tromethamine (Monurol) 3 gm 1X ONCE PO Last administered on at 15:00; Start 05/21/17 at 15:00; Stop 05/21/17 at 15:01; Status DC Active Scripts Active Reported Vitamin D3 (Cholecalciferol (Vitamin D3)) 1,000 Unit Tablet 3,000 Unit PO QHS Systane 0.3-0.4% Eye Drops (Propylene Glycol/Peg 400) 15 Ml Drops 1 Drop EACHEYE QID Systane 0.3-0.4% Eye Drops (Propylene Glycol/Peg 400) 15 Ml Drops 1 Drop EACHEYE QIDPRN PRN Pain Reliever Plus Tablet (Aspirin/Acetaminophen/Caffeine) 1 Each Tablet 2 Each PO PRN PRN Ondansetron Hcl 4 Mg Tablet 4 Mg PO PRN Q6HRS PRN Nystatin 100,000 Unit/1 Ml Oral.susp 100,000 Unit PO Nystatin 15 Gm Cream..g. 1 Missael TP PRN BID PRN Miralax (Polyethylene Glycol 3350) 17 Gm Powd.pack 17 Gm PO HS Lidocaine Hcl 5 Ml Jel..ml. 5 Ml TOP PRN Q4HRS Ketoconazole 120 Ml Shampoo 1 Missael TP TWICE WEEKLY Ibuprofen 100 Mg/5 Ml Oral.susp 200 Mg PO PRN TID PRN Hydroxyzine Hcl 25 Mg Tablet 25 Mg PO PRN Q4HRS PRN Hydrocortisone 453.6 Gm Oint...g. 1 [place] TP PRN BID PRN Epa-Dha 720 Softgel ([place]-3/Dha/Epa/Fish Oil) 1 Each Capsule 1 Each PO QHS Donepezil Hcl 5 Mg Tablet 5 Mg PO QHS Saline Nasal [place] (Sodium Chloride) 30 Ml [place] 1 Spr NS PRN PRN Tylenol (Acetaminophen) 325 Mg Tablet 650 Mg PO PRN Q4HRS PRN Seroquel (Quetiapine Fumarate) 400 Mg Tablet 400 Mg PO HS Mirtazapine 15 Mg Tablet 15 Mg PO QHS Lamotrigine 150 Mg Tablet 150 Mg PO BID Fluticasone Propionate Nasal [place] (Fluticasone Propionate) 16 Gm [place].susp 2 [place] NS PRN BID PRN Effexor Xr (Venlafaxine Hcl) 150 Mg Cap.er.24h 150 Mg PO DAILY Multi Vitamin Daily (Multivitamin) 1 Each Tablet 1 Each PO DAILY Mucinex (Guaifenesin) 600 Mg Tablet.er 600 Mg PO PRN BID PRN Namenda (Memantine Hcl) 10 Mg Tablet 5 Mg PO DAILY Gabapentin 600 Mg Tablet 600 Mg PO QID Gabapentin 100 Mg Capsule 100 Mg PO PRN Q6HRS Clonazepam 1 Mg Tablet 1 Mg PO BID I have reviewed the current psychotropics carefully including drug interactions. Risk benefit ratio favors no change other than as noted in my dictated progress note. Diagnosis: Problems: (1) Major depression (2) Anxiety (3) Bipolar affective disorder, mixed (4) Anxiety disorder (5) Major depressive disorder, recurrent episode (6) Impulse control disorder BRIAN CHAPA MD May 22, 2017 20:11
[2017-05-23] MEDS: ACETAMINOPHEN 325 MG TABLET PO PRN (05:41)
[2017-05-23 06:20] VITALS: BP 125/75
[2017-05-23] MEDS: MEMANTINE 5 MG TABLET. PO SCH (09:15)
[2017-05-23] MEDS: DULoxetine HCL 30 MG CAPSULE.DR PO SCH (09:15)
[2017-05-23] MEDS: lamoTRIgine 150 MG TABLET. PO SCH (09:15)
[2017-05-23] MEDS: GABAPENTIN 300 MG CAPSULE. PO SCH ×3 (09:15→20:21)
[2017-05-23] MEDS: clonazePAM 1 MG TABLET PO SCH ×2 (09:17→20:24)
[2017-05-23 16:05] VITALS: BP 133/72
--- NOTE | 2017-05-23 16:23 | PN ---
DATE: 05/22/2017 SUBJECTIVE: The patient was seen today, met with the staff, chart reviewed. The patient recently had a fall. She uses wheelchair. The patient has multiple somatic complaints. The patient is constantly seeking medications. OBSERVATION: VITAL SIGNS: Temperature 97.4, blood pressure 103/57, pulse 98, respirations 16, O2 sat 93%. GENERAL: Slept about 8 hours last night. The patient interacted with the staff, has high level of anxiety and also focusing on physical problems. LABORATORY DATA: Reviewed with an abnormal lipid levels. The patient's serum iron was 38, iron saturation 12. CURRENT MEDICATIONS: Cymbalta 30 mg daily, Lamictal 200 mg at night, gabapentin 600 mg t.i.d., Namenda 5 mg daily, Seroquel 400 mg at night, mirtazapine 15 mg at night, Aricept 5 mg at night, Klonopin 1 mg twice a day. The patient is not showing any side effects to the medications. The patient is constantly asking for more and more medications. ASSESSMENT: Bipolar disorder, mixed, [id number]; generalized anxiety disorder. PLAN: Continue with the medication. We will make an effort to decrease some of her medications. The patient was advised to participate in all the activities. MAC GILES MD DR: AC/gianfranco JOB#: [id number] / [id number]
[2017-05-23] MEDS: PRENATAL MULTIVITAMIN TABLET. PO SCH (16:34)
[2017-05-23] MEDS: OMEGA-3 FATTY ACIDS/FISH OIL 1,000 MG CAPSULE. PO SCH (20:20)
[2017-05-23] MEDS: DONEPEZIL HCL 5 MG TABLET. PO SCH (20:20)
[2017-05-23] MEDS: POLYETHYLENE GLYCOL 3350 17 GM PACKET. PO SCH (20:21)
[2017-05-23] MEDS: lamoTRIgine 100 MG TABLET. PO SCH (20:21)
[2017-05-23] MEDS: MIRTAZAPINE 15 MG TABLET PO SCH (20:21)
[2017-05-23] MEDS: QUEtiapine 100 MG TABLET. PO SCH (20:22)
[2017-05-23] MEDS: CHOLECALCIFEROL (VITAMIN D3) 1,000 UNIT TABLET PO SCH (20:22)
[2017-05-24] MEDS: ACETAMINOPHEN 325 MG TABLET PO PRN (05:08)
[2017-05-24 06:07] VITALS: BP 111/65
[2017-05-24] MEDS: DULoxetine HCL 30 MG CAPSULE.DR PO SCH (08:19)
[2017-05-24] MEDS: lamoTRIgine 150 MG TABLET. PO SCH (08:19)
[2017-05-24] MEDS: clonazePAM 1 MG TABLET PO SCH ×2 (08:19→19:20)
[2017-05-24] MEDS: MEMANTINE 5 MG TABLET. PO SCH (08:19)
[2017-05-24] MEDS: GABAPENTIN 300 MG CAPSULE. PO SCH ×3 (08:19→19:17)
[2017-05-24 16:10] VITALS: BP 139/70
[2017-05-24] MEDS: PRENATAL MULTIVITAMIN TABLET. PO SCH (16:33)
--- NOTE | 2017-05-24 17:25 | PN ---
DATE: 05/23/2017 SUBJECTIVE: The patient was seen today, met with the staff, chart reviewed. The patient recently had a fall from a wheelchair, but no injuries. The patient is very somatic, presenting with multiple physical problems. OBSERVATION: VITAL SIGNS: Temperature 97.2, blood pressure 125/75, pulse 95, respirations 18, O2 sat 94%. Slept about 6 hours last night. CURRENT MEDICATIONS: Include Cymbalta 30 mg daily, Lamictal 200 mg at night, gabapentin 600 mg t.i.d., Namenda 5 mg daily, Seroquel 400 mg at night, mirtazapine 15 mg at night, Aricept 5 mg at night, and Klonopin 1 mg b.i.d. The patient has no major side effects. ASSESSMENT: 1. Bipolar disorder, mixed, moderate to severe. 2. Generalized anxiety disorder. PLAN: The patient's Seroquel to be decreased to 300 mg at night and continue with the other medications. MAC GILES MD DR: AC/gianfranco JOB#: [id number] / [id number]
[2017-05-24] MEDS ORDERED: NYSTATIN TOPICAL POWDER 15GM BOTTLE. TP ONE (17:40)
[2017-05-24] MEDS: MAG HYDROX/AL HYDROX/SIMETH 30 ML ORAL.SUSP PO PRN (18:02)
[2017-05-24] MEDS: DONEPEZIL HCL 5 MG TABLET. PO SCH (19:17)
[2017-05-24] MEDS: lamoTRIgine 100 MG TABLET. PO SCH (19:17)
[2017-05-24] MEDS: OMEGA-3 FATTY ACIDS/FISH OIL 1,000 MG CAPSULE. PO SCH (19:17)
[2017-05-24] MEDS: MIRTAZAPINE 15 MG TABLET PO SCH (19:18)
[2017-05-24] MEDS: CHOLECALCIFEROL (VITAMIN D3) 1,000 UNIT TABLET PO SCH (19:19)
[2017-05-24] MEDS: QUEtiapine 100 MG TABLET. PO SCH (19:19)
[2017-05-24] MEDS: POLYETHYLENE GLYCOL 3350 17 GM PACKET. PO SCH (19:20)
[2017-05-25 06:16] VITALS: BP 110/75
[2017-05-25 07:26] LABS: BASO % 1 % (0-3); EOS # 0.1 x10^3/uL (0.0-0.7); EOS % 3 % (0-3); HEMATOCRIT 36.8 % (36.0-47.0); HEMOGLOBIN 12.4 g/dL (12.0-15.5); LYMPH % 23 % (24-48); MEAN CORPUSCULAR HEMOGLOBIN 28 pg (25-35); MEAN CORPUSCULAR HGB CONC 34 g/dL (31-37); MEAN CORPUSCULAR VOLUME 82 fL (79-100); MONO # 0.3 x10^3/uL (0.0-1.1); MONO % 8 % (0-9); NEUT # 2.7 x10^3uL (1.8-7.7); NEUT % 65 % (31-73); PLATELET COUNT 258 x10^3/uL (140-400); RED BLOOD COUNT 4.48 x10^6/uL (3.50-5.40); RED CELL DISTRIBUTION WIDTH 15.8 % (11.5-14.5); WHITE BLOOD COUNT 4.1 x10^3/uL (4.0-11.0)
[2017-05-25 07:40] LABS: ALBUMIN 3.4 g/dL (3.4-5.0); ALBUMIN/GLOBULIN RATIO 0.9 (1.0-1.7); CALCIUM 9.6 mg/dL (8.5-10.1); CREATININE 1.2 mg/dL (0.6-1.0); MAGNESIUM 2.2 mg/dL (1.8-2.4); POTASSIUM 4.2 mmol/L (3.5-5.1); TOTAL BILIRUBIN 0.3 mg/dL (0.2-1.0)
--- NOTE | 2017-05-25 08:27 | PN ---
DATE: 05/24/2017 SUBJECTIVE: The patient was seen today, met with the staff, chart reviewed. The patient continues to have problems, increased confusion, increased anxiety, constantly seeking medications. The patient also having significant mood swings. OBSERVATION: Vital signs stable. Appetite improved. MEDICATIONS: The patient's current medications include Cymbalta 30 mg daily, Lamictal 200 mg at night, gabapentin 600 mg t.i.d., Namenda 5 mg daily, Seroquel 400 mg at night, mirtazapine 15 mg at night, Aricept 5 mg at night, Klonopin 1 mg b.i.d. The patient denies of any side effects. ASSESSMENT: 1. Bipolar disorder, mixed, moderate to severe. 2. Generalized anxiety disorder. PLAN: To continue with the treatment. MAC GILES MD DR: AC/gianfranco JOB#: [id number] / [id number]
[2017-05-25 08:58] VITALS: BP 116/68
[2017-05-25] MEDS: MEMANTINE 5 MG TABLET. PO SCH (09:02)
[2017-05-25] MEDS: GABAPENTIN 300 MG CAPSULE. PO SCH ×3 (09:02→20:27)
[2017-05-25] MEDS: DULoxetine HCL 30 MG CAPSULE.DR PO SCH (09:03)
[2017-05-25] MEDS: lamoTRIgine 150 MG TABLET. PO SCH (09:03)
[2017-05-25] MEDS: clonazePAM 1 MG TABLET PO SCH ×2 (09:03→20:32)
[2017-05-25] MEDS: SODIUM CHLORIDE 0.65% NASAL SPRAY 45ML BOTTLE. NS PRN ×2 (10:24→20:27)
[2017-05-25 10:49] VITALS: BP 121/79
[2017-05-25 14:19] VITALS: BP 114/57
[2017-05-25] MEDS: PRENATAL MULTIVITAMIN TABLET. PO SCH (16:28)
[2017-05-25] MEDS: POLYETHYLENE GLYCOL 3350 17 GM PACKET. PO SCH (20:27)
[2017-05-25] MEDS: CHOLECALCIFEROL (VITAMIN D3) 1,000 UNIT TABLET PO SCH (20:27)
[2017-05-25] MEDS: MIRTAZAPINE 15 MG TABLET PO SCH (20:28)
[2017-05-25] MEDS: DONEPEZIL HCL 5 MG TABLET. PO SCH (20:28)
[2017-05-25] MEDS: OMEGA-3 FATTY ACIDS/FISH OIL 1,000 MG CAPSULE. PO SCH (20:28)
[2017-05-25] MEDS: QUEtiapine 100 MG TABLET. PO SCH (20:28)
[2017-05-25] MEDS: lamoTRIgine 100 MG TABLET. PO SCH (20:28)
[2017-05-26 06:19] VITALS: BP 108/70
[2017-05-26] MEDS: lamoTRIgine 150 MG TABLET. PO SCH (07:53)
[2017-05-26] MEDS: DULoxetine HCL 30 MG CAPSULE.DR PO SCH (07:53)
[2017-05-26] MEDS: GABAPENTIN 300 MG CAPSULE. PO SCH ×3 (07:53→20:04)
[2017-05-26] MEDS: MEMANTINE 5 MG TABLET. PO SCH (07:53)
[2017-05-26] MEDS: clonazePAM 1 MG TABLET PO SCH ×2 (07:54→20:04)
--- NOTE | 2017-05-26 11:26 | PN ---
DATE: 05/25/2017 SUBJECTIVE: The patient was seen today, met with the staff, chart reviewed and also completed the treatment review conference. The patient's family also participated in the treatment review. Staff reports increasing anxiety. The patient is still unsteady. The patient will be recommended for PT and OT following discharge. OBSERVATION: VITAL SIGNS: Temperature 98.3, blood pressure 110/75, pulse 95, respirations 18, O2 sat 94%. Slept about 9 hours last night. CURRENT MEDICATIONS: Include Cymbalta 30 mg daily, Lamictal 200 mg at night, and gabapentin 600 mg t.i.d. and Namenda 5 mg daily and Seroquel 300 mg at night, Aricept 5 mg at night, Klonopin 1 mg b.i.d. p.o. ASSESSMENT: 1. Bipolar disorder, mixed, moderate to severe. 2. Generalized anxiety disorder. PLAN: To continue with the treatment. MAC GILES MD DR: AC/gianfranco JOB#: [id number] / [id number]
[2017-05-26 15:30] VITALS: BP 95/64
[2017-05-26] MEDS: KETOCONAZOLE 2% SHAMPOO 120ML BOTTLE. TP SCH (16:00)
[2017-05-26] MEDS: PRENATAL MULTIVITAMIN TABLET. PO SCH (16:41)
[2017-05-26] MEDS: MAG HYDROX/AL HYDROX/SIMETH 30 ML ORAL.SUSP PO PRN (20:02)
[2017-05-26] MEDS: OMEGA-3 FATTY ACIDS/FISH OIL 1,000 MG CAPSULE. PO SCH (20:03)
[2017-05-26] MEDS: CHOLECALCIFEROL (VITAMIN D3) 1,000 UNIT TABLET PO SCH (20:03)
[2017-05-26] MEDS: DONEPEZIL HCL 5 MG TABLET. PO SCH (20:03)
[2017-05-26] MEDS: QUEtiapine 100 MG TABLET. PO SCH (20:04)
[2017-05-26] MEDS: MIRTAZAPINE 15 MG TABLET PO SCH (20:04)
[2017-05-26] MEDS: lamoTRIgine 100 MG TABLET. PO SCH (20:04)
[2017-05-26] MEDS: POLYETHYLENE GLYCOL 3350 17 GM PACKET. PO SCH (20:04)
[2017-05-26] MEDS: SODIUM CHLORIDE 0.65% NASAL SPRAY 45ML BOTTLE. NS PRN (20:07)
[2017-05-27 06:22] VITALS: BP 95/56
[2017-05-27] MEDS: lamoTRIgine 150 MG TABLET. PO SCH (08:14)
[2017-05-27] MEDS: GABAPENTIN 300 MG CAPSULE. PO SCH ×3 (08:14→20:35)
[2017-05-27] MEDS: DULoxetine HCL 30 MG CAPSULE.DR PO SCH (08:14)
[2017-05-27] MEDS: MEMANTINE 5 MG TABLET. PO SCH (08:14)
[2017-05-27] MEDS: clonazePAM 1 MG TABLET PO SCH ×2 (08:15→20:36)
[2017-05-27] MEDS: PRENATAL MULTIVITAMIN TABLET. PO SCH (08:15)
--- NOTE | 2017-05-27 15:49 | PN ---
DATE: 05/26/2017 SUBJECTIVE: The patient was seen today, met with the staff, chart reviewed. The patient still is a fall risk, tend to transfer to the wheelchair from bed without asking for help. The patient is still unsteady on her feet. Staff reports no other major problems. OBSERVATION: VITAL SIGNS: Temperature 97.4, blood pressure 108/70, pulse 86, respirations 16, O2 sat 94%. Slept about 8 hours last night. MEDICATIONS: The patient's current medications include Cymbalta 30 mg daily, Lamictal 200 mg at night, gabapentin 600 mg t.i.d., Namenda 5 mg daily, Seroquel 300 mg at night. The patient is also on Klonopin 1 mg b.i.d. p.o., and Aricept 5 mg at night. The patient is not having any side effects from the medications. No major physical complaints. ASSESSMENT: 1. Bipolar disorder, mixed, moderate to severe. 2. Generalized anxiety disorder. PLAN: To continue with the treatment. MAC GILES MD DR: AC/gianfranco JOB#: [id number] / [id number]
[2017-05-27 15:51] VITALS: BP 126/83
[2017-05-27] MEDS: DONEPEZIL HCL 5 MG TABLET. PO SCH (20:35)
[2017-05-27] MEDS: OMEGA-3 FATTY ACIDS/FISH OIL 1,000 MG CAPSULE. PO SCH (20:35)
[2017-05-27] MEDS: POLYETHYLENE GLYCOL 3350 17 GM PACKET. PO SCH (20:35)
[2017-05-27] MEDS: QUEtiapine 100 MG TABLET. PO SCH (20:35)
[2017-05-27] MEDS: lamoTRIgine 100 MG TABLET. PO SCH (20:36)
[2017-05-27] MEDS: MIRTAZAPINE 15 MG TABLET PO SCH (20:36)
[2017-05-27] MEDS: SODIUM CHLORIDE 0.65% NASAL SPRAY 45ML BOTTLE. NS PRN (20:38)
[2017-05-27] MEDS: CHOLECALCIFEROL (VITAMIN D3) 1,000 UNIT TABLET PO SCH (20:38)
[2017-05-28 06:22] VITALS: BP 111/61
[2017-05-28] MEDS: DULoxetine HCL 30 MG CAPSULE.DR PO SCH (08:08)
[2017-05-28] MEDS: GABAPENTIN 300 MG CAPSULE. PO SCH ×3 (08:08→19:45)
[2017-05-28] MEDS: lamoTRIgine 150 MG TABLET. PO SCH (08:08)
[2017-05-28] MEDS: MEMANTINE 5 MG TABLET. PO SCH (08:08)
[2017-05-28] MEDS: clonazePAM 1 MG TABLET PO SCH ×2 (08:09→19:45)
[2017-05-28] MEDS: PRENATAL MULTIVITAMIN TABLET. PO SCH (13:54)
[2017-05-28 16:28] VITALS: BP 128/72
[2017-05-28] MEDS: DONEPEZIL HCL 5 MG TABLET. PO SCH (19:44)
[2017-05-28] MEDS: POLYETHYLENE GLYCOL 3350 17 GM PACKET. PO SCH (19:44)
[2017-05-28] MEDS: MIRTAZAPINE 15 MG TABLET PO SCH (19:44)
[2017-05-28] MEDS: CHOLECALCIFEROL (VITAMIN D3) 1,000 UNIT TABLET PO SCH (19:45)
[2017-05-28] MEDS: lamoTRIgine 100 MG TABLET. PO SCH (19:45)
[2017-05-28] MEDS: QUEtiapine 100 MG TABLET. PO SCH (19:45)
[2017-05-28] MEDS: OMEGA-3 FATTY ACIDS/FISH OIL 1,000 MG CAPSULE. PO SCH (19:45)
--- NOTE | 2017-05-28 20:16 | PDOC ---
Exam Note: Greg Note: Please also refer to the separate dictated note~for this date of service dictated separately.~Patient seen individually. Discussed the patient with Nursing staff reviewed the chart.~Reviewed interim history and current functioning. Reviewed vital signs,~Labs/ Radiology~and current medications noted below. Continue current treatment with the changes noted in the dictated addendum note Assessment: Vital Signs: Vital Signs Date Time Temp Pulse Resp B/P (MAP) Pulse Ox O2 Delivery O2 Flow Rate FiO2 05/28/17 16:28 98.5 86 16 128/72 (90) 100 05/28/17 06:22 Room Air I&O Intake and Output 05/28/17 07:00 Intake Total 960 ml Balance 960 ml Intake Oral 960 ml # Bowel Movements 1 Current Medications: Meds: Current Medications Acetaminophen (Tylenol) 650 mg PRN Q6HRS PRN PO PAIN / TEMP; Start 05/19/17 at 16:15; Stop 05/19/17 at 18:42; Status DC Multi-Ingredient Ointment (Analgesic [place]) 1 missael PRN QID PRN TP MUSCLE PAIN; Start 05/19/17 at 16:15 Al Hydroxide/Mg Hydroxide (Mylanta Plus Xs) 15 ml PRN AFTMEALHC PRN PO DYSPEPSIA Last administered on 05/26/17at 20:02; Start 05/19/17 at 16:15 Magnesium Hydroxide (Milk Of Magnesia) 2,400 mg PRN QHS PRN PO CONSTIPATION; Start 05/19/17 at 16:15 Clonazepam (KlonoPIN) 1 mg BID PO Last administered on 05/28/17at 19:45; Start at 21:00 Donepezil HCl (Aricept) 5 mg QHS PO Last administered on 05/28/17at 19:44; Start 05/19/17 at 21:00 Lamotrigine (LaMICtal) 150 mg BID PO Last administered on 05/20/17at 20:17; Start 05/19/17 at 21:00; Stop 05/20/17 at 20:37; Status DC Memantine (Namenda) 5 mg DAILY PO Last administered on 05/28/17at 08:08; Start at 09:00 Mirtazapine (Remeron) 15 mg QHS PO Last administered on 2/4/18at 19:44; Start 05/19/17 at 21:00 Quetiapine Fumarate (SEROquel) 400 mg QHS PO Last administered on 05/22/17at 19: 57; Start 05/19/17 at 21:00; Stop 05/23/17 at 18:44; Status DC Venlafaxine HCl (Effexor) 50 mg TID PO Last administered on 05/20/17at 14:00; Start 05/19/17 at 21:00; Stop 05/20/17 at 19:25; Status DC Acetaminophen (Tylenol) 650 mg PRN Q4HRS PRN PO PAIN Last administered on at 05:08; Start 05/19/17 at 18:15 Vitamin D (Vitamin D3) 3,000 unit QHS PO Last administered on 05/28/17at 19:45; Start 05/19/17 at 21:00 Fluticasone Propionate (Flonase) 2 spray PRN BID PRN NS ALLERGIES; Start at 18:15 Gabapentin (Neurontin) 100 mg PRN Q6HRS PRN PO ANXIETY; Start 05/19/17 at 18:15 ; Stop 05/20/17 at 19:25; Status DC Guaifenesin (Mucinex Er) 600 mg PRN BID PRN PO coughing; Start 05/19/17 at 18: 15 Ketoconazole (Nizoral 2% Shampoo) 1 missael QMONFR TP ; Start 05/26/17 at 16:00 Lidocaine HCl (Uro-Jet) 5 missael PRN Q4HRS PRN TP PAIN; Start 05/19/17 at 18:15; Stop 05/19/17 at 20:05; Status DC Nystatin (Mycostatin) 1 missael PRN BID PRN TP itching; Start 05/19/17 at 18:15 Polyethylene Glycol (miraLAX) 17 gm HS PO Last administered on 05/28/17at 19:44; Start 05/19/17 at 21:00 Gabapentin (Neurontin) 600 mg QID PO Last administered on 05/20/17at 17:21; Start 05/19/17 at 21:00; Stop 05/20/17 at 19:25; Status DC Multivitamins/ Calcium (Thera-M Plus) 1 tab DAILY PO Last administered on at 07:59; Start 05/20/17 at 09:00; Stop 05/21/17 at 14:59; Status DC Fish Oil (Fish Oil) 1,000 mg QHS PO Last administered on 05/28/17at 19:45; Start 05/19/17 at 21:00 Ondansetron HCl (Zofran Odt) 4 mg PRN Q6HRS PRN PO NAUSEA; Start 05/19/17 at 19 :00 Non-Formulary Medication 1 drop QID EACHEYE ; Start 05/19/17 at 21:00; Stop at 21:00; Status DC Artificial Tears (Artificial Tears) 1 drop PRN QID PRN OU DRY EYE; Start at 19:00; Stop 05/20/17 at 14:59; Status DC Lidocaine HCl (Xylocaine 2% Topical 5gm Tube) 1 missael PRN Q4HRS PRN TP PAIN; Start 05/19/17 at 20:15; Stop 05/20/17 at 14:59; Status DC Lidocaine HCl (Xylocaine 2% Topical 5gm Tube) 1 missael PRN Q4HRS PRN TP PAIN Last administered on 05/23/17at 05:41; Start 05/20/17 at 14:59 Artificial Tears (Artificial Tears) 1 drop PRN QID PRN OU DRY EYE; Start at 14:59 Gabapentin (Neurontin) 600 mg TID PO Last administered on 05/28/17at 19:45; Start 05/20/17 at 21:00 Duloxetine HCl (Cymbalta) 30 mg DAILY PO Last administered on 05/28/17at 08:08; Start 05/21/17 at 09:00 Lamotrigine (LaMICtal) 150 mg DAILY PO Last administered on 05/28/17at 08:08; Start 05/21/17 at 09:00 Lamotrigine (LaMICtal) 200 mg HS PO Last administered on 05/28/17at 19:45; Start 05/20/17 at 21:00 Prenat Multivit/ [employer]/Iron/Folic Ac (Multivitamin ) 1 tab DAILYBFRSUP PO Last administered on 05/28/17at 13:54; Start 05/21/17 at 17:00 Fosfomycin Tromethamine (Monurol) 3 gm 1X ONCE PO Last administered on at 15:00; Start 05/21/17 at 15:00; Stop 05/21/17 at 15:01; Status DC Quetiapine Fumarate (SEROquel) 300 mg QHS PO Last administered on 05/25/17at 20: 28; Start 05/23/17 at 21:00; Stop 05/26/17 at 17:47; Status DC Nystatin (Nystop) 15 missael STK-MED ONCE TP Last administered on 05/24/17at 17:40; Start 05/24/17 at 17:40; Stop 05/24/17 at 17:41; Status DC Sodium Chloride (Saline Mist Nasal) 1 missael PRN Q1HR PRN NS NASAL CONGESTION Last administered on 05/27/17at 20:38; Start 05/25/17 at 09:15 Quetiapine Fumarate (SEROquel) 200 mg QHS PO Last administered on 05/28/17at 19: 45; Start 05/26/17 at 21:00 Active Scripts Active Reported Vitamin D3 (Cholecalciferol (Vitamin D3)) 1,000 Unit Tablet 3,000 Unit PO QHS Systane 0.3-0.4% Eye Drops (Propylene Glycol/Peg 400) 15 Ml Drops 1 Drop EACHEYE QID Systane 0.3-0.4% Eye Drops (Propylene Glycol/Peg 400) 15 Ml Drops 1 Drop EACHEYE QIDPRN PRN Pain Reliever Plus Tablet (Aspirin/Acetaminophen/Caffeine) 1 Each Tablet 2 Each PO PRN PRN Ondansetron Hcl 4 Mg Tablet 4 Mg PO PRN Q6HRS PRN Nystatin 100,000 Unit/1 Ml Oral.susp 100,000 Unit PO Nystatin 15 Gm Cream..g. 1 Missael TP PRN BID PRN Miralax (Polyethylene Glycol 3350) 17 Gm Powd.pack 17 Gm PO HS Lidocaine Hcl 5 Ml Jel..ml. 5 Ml TOP PRN Q4HRS Ketoconazole 120 Ml Shampoo 1 Missael TP TWICE WEEKLY Ibuprofen 100 Mg/5 Ml Oral.susp 200 Mg PO PRN TID PRN Hydroxyzine Hcl 25 Mg Tablet 25 Mg PO PRN Q4HRS PRN Hydrocortisone 453.6 Gm Oint...g. 1 Missael TP PRN BID PRN Epa-Dha 720 Softgel ([place]-3/Dha/Epa/Fish Oil) 1 Each Capsule 1 Each PO QHS Donepezil Hcl 5 Mg Tablet 5 Mg PO QHS Saline Nasal [place] (Sodium Chloride) 30 Ml [place] 1 Spr NS PRN PRN Tylenol (Acetaminophen) 325 Mg Tablet 650 Mg PO PRN Q4HRS PRN Seroquel (Quetiapine Fumarate) 400 Mg Tablet 400 Mg PO HS Mirtazapine 15 Mg Tablet 15 Mg PO QHS Lamotrigine 150 Mg Tablet 150 Mg PO BID Fluticasone Propionate Nasal [place] (Fluticasone Propionate) 16 Gm [place].susp 2 [place] NS PRN BID PRN Effexor Xr (Venlafaxine Hcl) 150 Mg Cap.er.24h 150 Mg PO DAILY Multi Vitamin Daily (Multivitamin) 1 Each Tablet 1 Each PO DAILY Mucinex (Guaifenesin) 600 Mg Tablet.er 600 Mg PO PRN BID PRN Namenda (Memantine Hcl) 10 Mg Tablet 5 Mg PO DAILY Gabapentin 600 Mg Tablet 600 Mg PO QID Gabapentin 100 Mg Capsule 100 Mg PO PRN Q6HRS Clonazepam 1 Mg Tablet 1 Mg PO BID I have reviewed the current psychotropics carefully including drug interactions. Risk benefit ratio favors no change other than as noted in my dictated progress note. Diagnosis: Problems: (1) Major depression (2) Anxiety (3) Bipolar affective disorder, mixed (4) Anxiety disorder (5) Major depressive disorder, recurrent episode (6) Impulse control disorder BRIAN CHAPA MD May 28, 2017 20:16
[2017-05-29 06:16] VITALS: BP 131/73
[2017-05-29] MEDS: MEMANTINE 5 MG TABLET. PO SCH (08:39)
[2017-05-29] MEDS: lamoTRIgine 150 MG TABLET. PO SCH (08:40)
[2017-05-29] MEDS: DULoxetine HCL 30 MG CAPSULE.DR PO SCH (08:40)
[2017-05-29] MEDS: GABAPENTIN 300 MG CAPSULE. PO SCH ×3 (08:40→20:37)
[2017-05-29] MEDS: clonazePAM 1 MG TABLET PO SCH (08:45)
[2017-05-29] MEDS: KETOROLAC TROMETHAMINE 0.5% OPHTH SOLUTION 3ML BOTTLE. OD SCH ×2 (14:15→20:38)
[2017-05-29] MEDS: KETOCONAZOLE 2% SHAMPOO 120ML BOTTLE. TP SCH (16:00)
[2017-05-29 16:33] VITALS: BP 117/62
[2017-05-29] MEDS: PRENATAL MULTIVITAMIN TABLET. PO SCH (17:06)
[2017-05-29] MEDS: DONEPEZIL HCL 5 MG TABLET. PO SCH (20:37)
[2017-05-29] MEDS: CHOLECALCIFEROL (VITAMIN D3) 1,000 UNIT TABLET PO SCH (20:37)
[2017-05-29] MEDS: OMEGA-3 FATTY ACIDS/FISH OIL 1,000 MG CAPSULE. PO SCH (20:37)
[2017-05-29] MEDS: QUEtiapine 100 MG TABLET. PO SCH (20:37)
[2017-05-29] MEDS: MIRTAZAPINE 15 MG TABLET PO SCH (20:37)
[2017-05-29] MEDS: POLYETHYLENE GLYCOL 3350 17 GM PACKET. PO SCH (20:38)
[2017-05-29] MEDS: lamoTRIgine 100 MG TABLET. PO SCH (20:38)
[2017-05-29] MEDS: clonazePAM 0.5 MG TABLET PO SCH (20:44)
--- NOTE | 2017-05-29 21:26 | PDOC ---
Exam Note: Greg Note: Please also refer to the separate dictated note~for this date of service dictated separately.~Patient seen individually. Discussed the patient with Nursing staff reviewed the chart.~Reviewed interim history and current functioning. Reviewed vital signs,~Labs/ Radiology~and current medications noted below. Continue current treatment with the changes noted in the dictated addendum note Assessment: Vital Signs: Vital Signs Date Time Temp Pulse Resp B/P (MAP) Pulse Ox O2 Delivery O2 Flow Rate FiO2 05/29/17 16:33 97.6 103 20 117/62 (80) 96 05/28/17 06:22 Room Air I&O Intake and Output 05/29/17 07:00 Intake Total 570 ml Balance 570 ml Intake Oral 570 ml # Voids 1 Current Medications: Meds: Current Medications Acetaminophen (Tylenol) 650 mg PRN Q6HRS PRN PO PAIN / TEMP; Start 05/19/17 at 16:15; Stop 05/19/17 at 18:42; Status DC Multi-Ingredient Ointment (Analgesic [place]) 1 missael PRN QID PRN TP MUSCLE PAIN; Start 05/19/17 at 16:15 Al Hydroxide/Mg Hydroxide (Mylanta Plus Xs) 15 ml PRN AFTMEALHC PRN PO DYSPEPSIA Last administered on 05/26/17at 20:02; Start 05/19/17 at 16:15 Magnesium Hydroxide (Milk Of Magnesia) 2,400 mg PRN QHS PRN PO CONSTIPATION; Start 05/19/17 at 16:15 Clonazepam (KlonoPIN) 1 mg BID PO Last administered on 05/29/17at 08:45; Start at 21:00; Stop 05/29/17 at 17:47; Status DC Donepezil HCl (Aricept) 5 mg QHS PO Last administered on 05/29/17at 20:37; Start 05/19/17 at 21:00 Lamotrigine (LaMICtal) 150 mg BID PO Last administered on 05/20/17at 20:17; Start 05/19/17 at 21:00; Stop 05/20/17 at 20:37; Status DC Memantine (Namenda) 5 mg DAILY PO Last administered on 05/29/17at 08:39; Start at 09:00 Mirtazapine (Remeron) 15 mg QHS PO Last administered on 05/29/17at 20:37; Start 05/19/17 at 21:00 Quetiapine Fumarate (SEROquel) 400 mg QHS PO Last administered on 05/22/17at 19: 57; Start 05/19/17 at 21:00; Stop 05/23/17 at 18:44; Status DC Venlafaxine HCl (Effexor) 50 mg TID PO Last administered on 05/20/17at 14:00; Start 05/19/17 at 21:00; Stop 05/20/17 at 19:25; Status DC Acetaminophen (Tylenol) 650 mg PRN Q4HRS PRN PO PAIN Last administered on at 05:08; Start 05/19/17 at 18:15 Vitamin D (Vitamin D3) 3,000 unit QHS PO Last administered on 05/29/17at 20:37; Start 05/19/17 at 21:00 Fluticasone Propionate (Flonase) 2 spray PRN BID PRN NS ALLERGIES; Start at 18:15 Gabapentin (Neurontin) 100 mg PRN Q6HRS PRN PO ANXIETY; Start 05/19/17 at 18:15 ; Stop 05/20/17 at 19:25; Status DC Guaifenesin (Mucinex Er) 600 mg PRN BID PRN PO coughing; Start 05/19/17 at 18: 15 Ketoconazole (Nizoral 2% Shampoo) 1 missael QMONFR TP ; Start 05/26/17 at 16:00 Lidocaine HCl (Uro-Jet) 5 missael PRN Q4HRS PRN TP PAIN; Start 05/19/17 at 18:15; Stop 05/19/17 at 20:05; Status DC Nystatin (Mycostatin) 1 missael PRN BID PRN TP itching; Start 05/19/17 at 18:15 Polyethylene Glycol (miraLAX) 17 gm HS PO Last administered on 05/29/17at 20:38; Start 05/19/17 at 21:00 Gabapentin (Neurontin) 600 mg QID PO Last administered on 05/20/17at 17:21; Start 05/19/17 at 21:00; Stop 05/20/17 at 19:25; Status DC Multivitamins/ Calcium (Thera-M Plus) 1 tab DAILY PO Last administered on at 07:59; Start 05/20/17 at 09:00; Stop 05/21/17 at 14:59; Status DC Fish Oil (Fish Oil) 1,000 mg QHS PO Last administered on 05/29/17at 20:37; Start 05/19/17 at 21:00 Ondansetron HCl (Zofran Odt) 4 mg PRN Q6HRS PRN PO NAUSEA; Start 05/19/17 at 19 :00 Non-Formulary Medication 1 drop QID EACHEYE ; Start 05/19/17 at 21:00; Stop at 21:00; Status DC Artificial Tears (Artificial Tears) 1 drop PRN QID PRN OU DRY EYE; Start at 19:00; Stop 05/20/17 at 14:59; Status DC Lidocaine HCl (Xylocaine 2% Topical 5gm Tube) 1 missael PRN Q4HRS PRN TP PAIN; Start 05/19/17 at 20:15; Stop 05/20/17 at 14:59; Status DC Lidocaine HCl (Xylocaine 2% Topical 5gm Tube) 1 missael PRN Q4HRS PRN TP PAIN Last administered on 05/23/17at 05:41; Start 05/20/17 at 14:59 Artificial Tears (Artificial Tears) 1 drop PRN QID PRN OU DRY EYE Last administered on 05/29/17at 08:44; Start 05/20/17 at 14:59 Gabapentin (Neurontin) 600 mg TID PO Last administered on 05/29/17at 20:37; Start 05/20/17 at 21:00 Duloxetine HCl (Cymbalta) 30 mg DAILY PO Last administered on 05/29/17 08:40; Start 05/21/17 at 09:00 Lamotrigine (LaMICtal) 150 mg DAILY PO Last administered on 05/29/17at 08:40; Start 05/21/17 at 09:00; Stop 05/29/17 at 17:46; Status DC Lamotrigine (LaMICtal) 200 mg HS PO Last administered on 05/28/17 19:45; Start 05/20/17 at 21:00; Stop 05/29/17 at 17:46; Status DC Prenat Multivit/ [place]/Iron/Folic Ac (Multivitamin ) 1 tab DAILYBFRSUP PO Last administered on 05/29/17 17:06; Start 05/21/17 at 17:00 Fosfomycin Tromethamine (Monurol) 3 gm 1X ONCE PO Last administered on 15:00; Start 05/21/17 at 15:00; Stop 05/21/17 at 15:01; Status DC Quetiapine Fumarate (SEROquel) 300 mg QHS PO Last administered on 05/25/17 20: 28; Start 05/23/17 at 21:00; Stop 05/26/17 at 17:47; Status DC Nystatin (Nystop) 15 missael STK-MED ONCE TP Last administered on 05/24/17 17:40; Start 05/24/17 at 17:40; Stop 05/24/17 at 17:41; Status DC Sodium Chloride (Saline Mist Nasal) 1 missael PRN Q1HR PRN NS NASAL CONGESTION Last administered on 05/27/17 20:38; Start 05/25/17 at 09:15 Quetiapine Fumarate (SEROquel) 200 mg QHS PO Last administered on 05/29/17 20: 37; Start 05/26/17 at 21:00 Ketorolac Tromethamine (Acular) 1 drop Q8HRS OD Last administered on 05/29/17 20:38; Start 05/29/17 at 14:00; Stop 06/03/17 at 13:59 Lamotrigine (LaMICtal) 200 mg BID PO Last administered on 05/29/17 20:38; Start 05/29/17 at 21:00 Clonazepam (KlonoPIN) 1 mg DAILY PO ; Start 05/30/17 at 09:00 Clonazepam (KlonoPIN) 0.75 mg QHS PO Last administered on 05/29/17 20:44; Start 05/29/17 at 21:00 Active Scripts Active Reported Vitamin D3 (Cholecalciferol (Vitamin D3)) 1,000 Unit Tablet 3,000 Unit PO QHS Systane 0.3-0.4% Eye Drops (Propylene Glycol/Peg 400) 15 Ml Drops 1 Drop EACHEYE QID Systane 0.3-0.4% Eye Drops (Propylene Glycol/Peg 400) 15 Ml Drops 1 Drop EACHEYE QIDPRN PRN Pain Reliever Plus Tablet (Aspirin/Acetaminophen/Caffeine) 1 Each Tablet 2 Each PO PRN PRN Ondansetron Hcl 4 Mg Tablet 4 Mg PO PRN Q6HRS PRN Nystatin 100,000 Unit/1 Ml Oral.susp 100,000 Unit PO Nystatin 15 Gm Cream..g. 1 Missael TP PRN BID PRN Miralax (Polyethylene Glycol 3350) 17 Gm Powd.pack 17 Gm PO HS Lidocaine Hcl 5 Ml Jel..ml. 5 Ml TOP PRN Q4HRS Ketoconazole 120 Ml Shampoo 1 Missael TP TWICE WEEKLY Ibuprofen 100 Mg/5 Ml Oral.susp 200 Mg PO PRN TID PRN Hydroxyzine Hcl 25 Mg Tablet 25 Mg PO PRN Q4HRS PRN Hydrocortisone 453.6 Gm Oint...g. 1 Missael TP PRN BID PRN Epa-Dha 720 Softgel ([place]-3/Dha/Epa/Fish Oil) 1 Each Capsule 1 Each PO QHS Donepezil Hcl 5 Mg Tablet 5 Mg PO QHS Saline Nasal [place] (Sodium Chloride) 30 Ml [place] 1 Spr NS PRN PRN Tylenol (Acetaminophen) 325 Mg Tablet 650 Mg PO PRN Q4HRS PRN Seroquel (Quetiapine Fumarate) 400 Mg Tablet 400 Mg PO HS Mirtazapine 15 Mg Tablet 15 Mg PO QHS Lamotrigine 150 Mg Tablet 150 Mg PO BID Fluticasone Propionate Nasal [place] (Fluticasone Propionate) 16 Gm [place].susp 2 [place] NS PRN BID PRN Effexor Xr (Venlafaxine Hcl) 150 Mg Cap.er.24h 150 Mg PO DAILY Multi Vitamin Daily (Multivitamin) 1 Each Tablet 1 Each PO DAILY Mucinex (Guaifenesin) 600 Mg Tablet.er 600 Mg PO PRN BID PRN Namenda (Memantine Hcl) 10 Mg Tablet 5 Mg PO DAILY Gabapentin 600 Mg Tablet 600 Mg PO QID Gabapentin 100 Mg Capsule 100 Mg PO PRN Q6HRS Clonazepam 1 Mg Tablet 1 Mg PO BID I have reviewed the current psychotropics carefully including drug interactions. Risk benefit ratio favors no change other than as noted in my dictated progress note. Diagnosis: Problems: (1) Major depression (2) Anxiety (3) Bipolar affective disorder, mixed (4) Anxiety disorder (5) Major depressive disorder, recurrent episode (6) Impulse control disorder BRIAN CHAPA MD May 29, 2017 21:26
--- NOTE | 2017-05-29 23:26 | PN ---
DATE: 05/21/2017 This is a late entry for 05/21/2017 and covers elements not covered in my initial note of 05/21/2017. I met with the patient evening of 05/21/2017. I dictated a note at the time of my visit from an external line and it cannot be traced in the system. I am re-dictating. The patient has been calm, compliant with medications and assessment, tired, resistive with medications, "They just dope me off." She is angry at her family for placing her here. REVIEW OF SYSTEMS: Ambulation impaired, in wheelchair. No CV, , pulmonary, eye, ENT system symptoms on review. MENTAL STATUS EXAM: Oriented reasonably to herself and situation. Speech has some latency, coherent. Abstraction fair, computation impaired, language function intact, attention span short. Mood and affect still depressed. LABORATORY DATA: Reviewed. IMPRESSION: Major depressive disorder with psychotic features. Rest unchanged from initial note. PLAN: Continue psychotropics as mentioned in my initial note. Adjust further as clinically indicated. MAN Vidal CHAPA MD DR: ANTONIO/[email or web address] JOB#: [id number] / [id number]
--- NOTE | 2017-05-30 05:52 | PN ---
DATE: 05/28/2017 PSYCHIATRIC PROGRESS NOTE This late entry 05/28/2017 covers elements, not covered in my initial note of 05/28/2017. I met with the patient in the evening of 05/28/2017. The patient has been calm, compliant. No tearfulness during the day, but evening of 05/28/2017, I met with her, she was quite tearful, anxious, helpless, depressed. REVIEW OF SYSTEMS: Ambulation impaired, in wheelchair. No CV, , pulmonary, eye system symptoms on review. MENTAL STATUS EXAM: Reasonably oriented to herself and situation. Speech moderate latency, often responses monosyllabic. Abstraction fair, computation impaired, language function intact. Mood and affect still somewhat depressed. LABORATORY DATA: Reviewed. IMPRESSION: Bipolar 1 disorder versus bipolar 2 disorder, depressed, anxiety disorder, unspecified. PLAN: Continue current psychotropics. Increase Lamictal to 200 mg twice a day. Reduce Klonopin from 1 mg twice a day to 1 mg in the morning and 0.75 mg in the evening. Continue rest unchanged. MAN Vidal CHAPA MD DR: ANTONIO/gianfranco JOB#: [id number] / [id number]
[2017-05-30 05:59] VITALS: BP 108/72
[2017-05-30] MEDS: KETOROLAC TROMETHAMINE 0.5% OPHTH SOLUTION 3ML BOTTLE. OD SCH ×4 (06:00→20:42)
[2017-05-30 07:21] LABS: AMORPHOUS SEDIMENT,UR PRESENT /HPF; BACTERIA,URINE MOD /HPF (0-FEW); BILIRUBIN,URINE NEG (NEG); CLARITY,URINE CLOUDY; COLOR,URINE YELLOW; GLUCOSE,URINE NEG (NEG); NITRITE,URINE NEG (NEG); RBC,URINE RARE /HPF (0-2); SQUAMOUS EPITHELIAL CELL,UR OCC /LPF; UROBILINOGEN,URINE 0.2 mg/dL (0.2 mg/dL)
[2017-05-30] MEDS: DULoxetine HCL 30 MG CAPSULE.DR PO SCH (08:57)
[2017-05-30] MEDS: GABAPENTIN 300 MG CAPSULE. PO SCH ×3 (08:57→20:24)
[2017-05-30] MEDS: lamoTRIgine 100 MG TABLET. PO SCH ×2 (08:58→20:24)
[2017-05-30] MEDS: MEMANTINE 5 MG TABLET. PO SCH (08:58)
[2017-05-30] MEDS: clonazePAM 1 MG TABLET PO SCH (08:59)
[2017-05-30 15:57] VITALS: BP 117/63
[2017-05-30] MEDS: PRENATAL MULTIVITAMIN TABLET. PO SCH (16:51)
--- NOTE | 2017-05-30 20:21 | PDOC ---
Exam Note: Greg Note: Please also refer to the separate dictated note~for this date of service dictated separately.~Patient seen individually. Discussed the patient with Nursing staff reviewed the chart.~Reviewed interim history and current functioning. Reviewed vital signs,~Labs/ Radiology~and current medications noted below. Continue current treatment with the changes noted in the dictated addendum note Assessment: Vital Signs: Vital Signs Date Time Temp Pulse Resp B/P (MAP) Pulse Ox O2 Delivery O2 Flow Rate FiO2 05/30/17 15:57 97.7 88 18 117/63 (81) 96 05/28/17 06:22 Room Air I&O Intake and Output 05/30/17 07:00 Intake Total 1200 ml Balance 1200 ml Intake Oral 1200 ml # Bowel Movements 1 Labs: Laboratory Tests Test 05/30/17 06:55 Urine Collection Type Unknown Urine Color Yellow Urine Clarity Cloudy Urine pH 7.0 Urine Specific [place] 1.020 Urine Protein Neg (NEG-TRACE) Urine Glucose (UA) Neg mg/dL (NEG) Urine Ketones (Stick) Neg mg/dL (NEG) Urine Blood Neg (NEG) Urine Nitrite Neg (NEG) Urine Bilirubin Neg (NEG) Urine Urobilinogen Dipstick 0.2 mg/dL (0.2 mg/dL) Urine Leukocyte Esterase Mod (NEG) Urine RBC Rare /HPF (0-2) Urine WBC 1-4 /HPF (0-4) Urine Squamous Epithelial Cells Occ /LPF Urine Amorphous Sediment Present /HPF Urine Bacteria Mod /HPF (0-FEW) Urine Mucus Slight /LPF Current Medications: Meds: Current Medications Acetaminophen (Tylenol) 650 mg PRN Q6HRS PRN PO PAIN / TEMP; Start 05/19/17 at 16:15; Stop 05/19/17 at 18:42; Status DC Multi-Ingredient Ointment (Analgesic [place]) 1 missael PRN QID PRN TP MUSCLE PAIN; Start 05/19/17 at 16:15 Al Hydroxide/Mg Hydroxide (Mylanta Plus Xs) 15 ml PRN AFTMEALHC PRN PO DYSPEPSIA Last administered on 05/26/17at 20:02; Start 05/19/17 at 16:15 Magnesium Hydroxide (Milk Of Magnesia) 2,400 mg PRN QHS PRN PO CONSTIPATION; Start 05/19/17 at 16:15 Clonazepam (KlonoPIN) 1 mg BID PO Last administered on 05/29/17at 08:45; Start at 21:00; Stop 05/29/17 at 17:47; Status DC Donepezil HCl (Aricept) 5 mg QHS PO Last administered on 05/29/17at 20:37; Start 05/19/17 at 21:00 Lamotrigine (LaMICtal) 150 mg BID PO Last administered on 05/20/17at 20:17; Start 05/19/17 at 21:00; Stop 05/20/17 at 20:37; Status DC Memantine (Namenda) 5 mg DAILY PO Last administered on 05/30/17at 08:58; Start at 09:00 Mirtazapine (Remeron) 15 mg QHS PO Last administered on 05/29/17at 20:37; Start 05/19/17 at 21:00 Quetiapine Fumarate (SEROquel) 400 mg QHS PO Last administered on 05/22/17at 19: 57; Start 05/19/17 at 21:00; Stop 05/23/17 at 18:44; Status DC Venlafaxine HCl (Effexor) 50 mg TID PO Last administered on 05/20/17at 14:00; Start 05/19/17 at 21:00; Stop 05/20/17 at 19:25; Status DC Acetaminophen (Tylenol) 650 mg PRN Q4HRS PRN PO PAIN Last administered on at 05:08; Start 05/19/17 at 18:15 Vitamin D (Vitamin D3) 3,000 unit QHS PO Last administered on 05/29/17at 20:37; Start 05/19/17 at 21:00 Fluticasone Propionate (Flonase) 2 spray PRN BID PRN NS ALLERGIES; Start at 18:15 Gabapentin (Neurontin) 100 mg PRN Q6HRS PRN PO ANXIETY; Start 05/19/17 at 18:15 ; Stop 05/20/17 at 19:25; Status DC Guaifenesin (Mucinex Er) 600 mg PRN BID PRN PO coughing; Start 05/19/17 at 18: 15 Ketoconazole (Nizoral 2% Shampoo) 1 missael QMONFR TP ; Start 05/26/17 at 16:00 Lidocaine HCl (Uro-Jet) 5 missael PRN Q4HRS PRN TP PAIN; Start 05/19/17 at 18:15; Stop 05/19/17 at 20:05; Status DC Nystatin (Mycostatin) 1 missael PRN BID PRN TP itching; Start 05/19/17 at 18:15 Polyethylene Glycol (miraLAX) 17 gm HS PO Last administered on 05/29/17at 20:38; Start 05/19/17 at 21:00 Gabapentin (Neurontin) 600 mg QID PO Last administered on 05/20/17at 17:21; Start 05/19/17 at 21:00; Stop 05/20/17 at 19:25; Status DC Multivitamins/ Calcium (Thera-M Plus) 1 tab DAILY PO Last administered on at 07:59; Start 05/20/17 at 09:00; Stop 05/21/17 at 14:59; Status DC Fish Oil (Fish Oil) 1,000 mg QHS PO Last administered on 05/29/17at 20:37; Start 05/19/17 at 21:00 Ondansetron HCl (Zofran Odt) 4 mg PRN Q6HRS PRN PO NAUSEA; Start 05/19/17 at 19 :00 Non-Formulary Medication 1 drop QID EACHEYE ; Start 05/19/17 at 21:00; Stop at 21:00; Status DC Artificial Tears (Artificial Tears) 1 drop PRN QID PRN OU DRY EYE; Start at 19:00; Stop 05/20/17 at 14:59; Status DC Lidocaine HCl (Xylocaine 2% Topical 5gm Tube) 1 missael PRN Q4HRS PRN TP PAIN; Start 05/19/17 at 20:15; Stop 05/20/17 at 14:59; Status DC Lidocaine HCl (Xylocaine 2% Topical 5gm Tube) 1 missael PRN Q4HRS PRN TP PAIN Last administered on 05/23/17at 05:41; Start 05/20/17 at 14:59 Artificial Tears (Artificial Tears) 1 drop PRN QID PRN OU DRY EYE Last administered on 05/29/17at 08:44; Start 05/20/17 at 14:59 Gabapentin (Neurontin) 600 mg TID PO Last administered on 05/30/17 13:35; Start 05/20/17 at 21:00 Duloxetine HCl (Cymbalta) 30 mg DAILY PO Last administered on 05/30/17 08:57; Start 05/21/17 at 09:00 Lamotrigine (LaMICtal) 150 mg DAILY PO Last administered on 05/29/17 08:40; Start 05/21/17 at 09:00; Stop 05/29/17 at 17:46; Status DC Lamotrigine (LaMICtal) 200 mg HS PO Last administered on 05/28/17 19:45; Start 05/20/17 at 21:00; Stop 05/29/17 at 17:46; Status DC Prenat Multivit/ [employer]/Iron/Folic Ac (Multivitamin ) 1 tab DAILYBFRSUP PO Last administered on 05/30/17 16:51; Start 05/21/17 at 17:00 Fosfomycin Tromethamine (Monurol) 3 gm 1X ONCE PO Last administered on at 15:00; Start 05/21/17 at 15:00; Stop 05/21/17 at 15:01; Status DC Quetiapine Fumarate (SEROquel) 300 mg QHS PO Last administered on 05/25/17 20: 28; Start 05/23/17 at 21:00; Stop 05/26/17 at 17:47; Status DC Nystatin (Nystop) 15 missael STK-MED ONCE TP Last administered on 05/24/17at 17:40; Start 05/24/17 at 17:40; Stop 05/24/17 at 17:41; Status DC Sodium Chloride (Saline Mist Nasal) 1 missael PRN Q1HR PRN NS NASAL CONGESTION Last administered on 05/27/17 20:38; Start 05/25/17 at 09:15 Quetiapine Fumarate (SEROquel) 200 mg QHS PO Last administered on 05/29/17 20: 37; Start 05/26/17 at 21:00 Ketorolac Tromethamine (Acular) 1 drop Q8HRS OD Last administered on 05/30/17 13:35; Start 05/29/17 at 14:00; Stop 06/03/17 at 13:59 Lamotrigine (LaMICtal) 200 mg BID PO Last administered on 05/30/17at 08:58; Start 05/29/17 at 21:00 Clonazepam (KlonoPIN) 1 mg DAILY PO Last administered on 05/30/17at 08:59; Start 05/30/17 at 09:00 Clonazepam (KlonoPIN) 0.75 mg QHS PO Last administered on 05/29/17at 20:44; Start 05/29/17 at 21:00 Active Scripts Active Reported Vitamin D3 (Cholecalciferol (Vitamin D3)) 1,000 Unit Tablet 3,000 Unit PO QHS Systane 0.3-0.4% Eye Drops (Propylene Glycol/Peg 400) 15 Ml Drops 1 Drop EACHEYE QID Systane 0.3-0.4% Eye Drops (Propylene Glycol/Peg 400) 15 Ml Drops 1 Drop EACHEYE QIDPRN PRN Pain Reliever Plus Tablet (Aspirin/Acetaminophen/Caffeine) 1 Each Tablet 2 Each PO PRN PRN Ondansetron Hcl 4 Mg Tablet 4 Mg PO PRN Q6HRS PRN Nystatin 100,000 Unit/1 Ml Oral.susp 100,000 Unit PO Nystatin 15 Gm Cream..g. 1 Missael TP PRN BID PRN Miralax (Polyethylene Glycol 3350) 17 Gm Powd.pack 17 Gm PO HS Lidocaine Hcl 5 Ml Jel..ml. 5 Ml TOP PRN Q4HRS Ketoconazole 120 Ml Shampoo 1 Missael TP TWICE WEEKLY Ibuprofen 100 Mg/5 Ml Oral.susp 200 Mg PO PRN TID PRN Hydroxyzine Hcl 25 Mg Tablet 25 Mg PO PRN Q4HRS PRN Hydrocortisone 453.6 Gm Oint...g. 1 Missael TP PRN BID PRN Epa-Dha 720 Softgel ([place]-3/Dha/Epa/Fish Oil) 1 Each Capsule 1 Each PO QHS Donepezil Hcl 5 Mg Tablet 5 Mg PO QHS Saline Nasal [place] (Sodium Chloride) 30 Ml [place] 1 Spr NS PRN PRN Tylenol (Acetaminophen) 325 Mg Tablet 650 Mg PO PRN Q4HRS PRN Seroquel (Quetiapine Fumarate) 400 Mg Tablet 400 Mg PO HS Mirtazapine 15 Mg Tablet 15 Mg PO QHS Lamotrigine 150 Mg Tablet 150 Mg PO BID Fluticasone Propionate Nasal [place] (Fluticasone Propionate) 16 Gm [place].susp 2 [place] NS PRN BID PRN Effexor Xr (Venlafaxine Hcl) 150 Mg Cap.er.24h 150 Mg PO DAILY Multi Vitamin Daily (Multivitamin) 1 Each Tablet 1 Each PO DAILY Mucinex (Guaifenesin) 600 Mg Tablet.er 600 Mg PO PRN BID PRN Namenda (Memantine Hcl) 10 Mg Tablet 5 Mg PO DAILY Gabapentin 600 Mg Tablet 600 Mg PO QID Gabapentin 100 Mg Capsule 100 Mg PO PRN Q6HRS Clonazepam 1 Mg Tablet 1 Mg PO BID I have reviewed the current psychotropics carefully including drug interactions. Risk benefit ratio favors no change other than as noted in my dictated progress note. Diagnosis: Problems: (1) Major depression (2) Anxiety (3) Bipolar affective disorder, mixed (4) Anxiety disorder (5) Major depressive disorder, recurrent episode (6) Impulse control disorder BRIAN CHAPA MD May 30, 2017 20:21
[2017-05-30] MEDS: CHOLECALCIFEROL (VITAMIN D3) 1,000 UNIT TABLET PO SCH (20:24)
[2017-05-30] MEDS: OMEGA-3 FATTY ACIDS/FISH OIL 1,000 MG CAPSULE. PO SCH (20:24)
[2017-05-30] MEDS: QUEtiapine 100 MG TABLET. PO SCH (20:24)
[2017-05-30] MEDS: MIRTAZAPINE 15 MG TABLET PO SCH (20:24)
[2017-05-30] MEDS: DONEPEZIL HCL 5 MG TABLET. PO SCH (20:24)
[2017-05-30] MEDS: POLYETHYLENE GLYCOL 3350 17 GM PACKET. PO SCH (20:25)
[2017-05-30] MEDS: clonazePAM 0.5 MG TABLET PO SCH (20:26)
--- NOTE | 2017-05-31 00:33 | PN ---
DATE: 05/29/2017 This late entry 05/29/2017 covers elements not covered in my initial note of 05/29/2017, met with the patient in the evening of 05/29/2017. Per nursing report, the patient has been a little more confused, tearful at times. We will repeat a UA to make sure she does not have a UTI to explain this. REVIEW OF SYSTEMS: Ambulation impaired, in wheelchair. No CV, , pulmonary, eye system symptoms on review. MENTAL STATUS EXAM: As I met with her, she seemed to recognize me. Speech is coherent, has some latency. Abstraction fair, computation impaired, language function intact. Mood and affect remain somewhat withdrawn. LABORATORY DATA: Reviewed. IMPRESSION: Major depressive disorder, recurrent with psychotic features, bipolar 1 disorder, depressed, anxiety disorder, unspecified. PLAN: Continue to gradually taper the Klonopin, Lamictal was increased. Maintain Cymbalta, Namenda, Seroquel, Remeron, and Aricept. Adjust further as clinically indicated. MAN Vidal CHAPA MD DR: ANTONIO/gianfranco JOB#: [id number] / [id number]
[2017-05-31] MEDS: KETOROLAC TROMETHAMINE 0.5% OPHTH SOLUTION 3ML BOTTLE. OD SCH ×3 (06:00→20:26)
[2017-05-31 06:25] VITALS: BP 100/56
[2017-05-31 07:12] LABS: BASO % 1 % (0-3); EOS # 0.2 x10^3/uL (0.0-0.7); EOS % 5 % (0-3); HEMATOCRIT 36.7 % (36.0-47.0); HEMOGLOBIN 12.1 g/dL (12.0-15.5); LYMPH # 1.2 x10^3/uL (1.0-4.8); LYMPH % 28 % (24-48); MEAN CORPUSCULAR HEMOGLOBIN 28 pg (25-35); MEAN CORPUSCULAR HGB CONC 33 g/dL (31-37); MEAN CORPUSCULAR VOLUME 84 fL (79-100); MONO # 0.4 x10^3/uL (0.0-1.1); MONO % 11 % (0-9); NEUT # 2.3 x10^3uL (1.8-7.7); NEUT % 55 % (31-73); PLATELET COUNT 246 x10^3/uL (140-400); RED BLOOD COUNT 4.39 x10^6/uL (3.50-5.40); RED CELL DISTRIBUTION WIDTH 16.8 % (11.5-14.5); WHITE BLOOD COUNT 4.1 x10^3/uL (4.0-11.0)
[2017-05-31 07:20] LABS: ALBUMIN 3.1 g/dL (3.4-5.0); ALBUMIN/GLOBULIN RATIO 0.9 (1.0-1.7); CALCIUM 9.4 mg/dL (8.5-10.1); CREATININE 1.2 mg/dL (0.6-1.0); MAGNESIUM 2.1 mg/dL (1.8-2.4); POTASSIUM 4.5 mmol/L (3.5-5.1); TOTAL BILIRUBIN 0.3 mg/dL (0.2-1.0); TOTAL PROTEIN 6.4 g/dL (6.4-8.2)
[2017-05-31] MEDS: GABAPENTIN 300 MG CAPSULE. PO SCH ×3 (07:49→20:20)
[2017-05-31] MEDS: lamoTRIgine 100 MG TABLET. PO SCH ×2 (07:49→20:20)
[2017-05-31] MEDS: MEMANTINE 5 MG TABLET. PO SCH (07:49)
[2017-05-31] MEDS: DULoxetine HCL 30 MG CAPSULE.DR PO SCH (07:49)
[2017-05-31] MEDS: clonazePAM 0.5 MG TABLET PO SCH ×2 (07:51→20:24)
[2017-05-31] MEDS: clonazePAM 1 MG TABLET PO SCH (07:57)
[2017-05-31 16:19] VITALS: BP 115/62
[2017-05-31] MEDS: PRENATAL MULTIVITAMIN TABLET. PO SCH (17:03)
--- NOTE | 2017-05-31 19:22 | PDOC ---
Exam Note: Greg Note: Please also refer to the separate dictated note~for this date of service dictated separately.~Patient seen individually. Discussed the patient with Nursing staff reviewed the chart.~Reviewed interim history and current functioning. Reviewed vital signs,~Labs/ Radiology~and current medications noted below. Continue current treatment with the changes noted in the dictated addendum note Assessment: Vital Signs: Vital Signs Date Time Temp Pulse Resp B/P (MAP) Pulse Ox O2 Delivery O2 Flow Rate FiO2 05/31/17 16:19 98.4 104 18 115/62 (79) 95 05/28/17 06:22 Room Air I&O Intake and Output 05/31/17 07:00 Intake Total 720 ml Balance 720 ml Intake Oral 720 ml # Bowel Movements 1 Labs: Laboratory Tests Test 05/31/17 06:39 White Blood Count 4.1 x10^3/uL (4.0-11.0) Red Blood Count 4.39 x10^6/uL (3.50-5.40) Hemoglobin 12.1 g/dL (12.0-15.5) Hematocrit 36.7 % (36.0-47.0) Mean Corpuscular Volume 84 fL (79-100) Mean Corpuscular Hemoglobin 28 pg (25-35) Mean Corpuscular Hemoglobin Concent 33 g/dL (31-37) Red Cell Distribution Width 16.8 % (11.5-14.5) H Platelet Count 246 x10^3/uL (140-400) Neutrophils (%) (Auto) 55 % (31-73) Lymphocytes (%) (Auto) 28 % (24-48) Monocytes (%) (Auto) 11 % (0-9) H Eosinophils (%) (Auto) 5 % (0-3) H Basophils (%) (Auto) 1 % (0-3) Neutrophils # (Auto) 2.3 x10^3uL (1.8-7.7) Lymphocytes # (Auto) 1.2 x10^3/uL (1.0-4.8) Monocytes # (Auto) 0.4 x10^3/uL (0.0-1.1) Eosinophils # (Auto) 0.2 x10^3/uL (0.0-0.7) Basophils # (Auto) 0.0 x10^3/uL (0.0-0.2) Sodium Level 142 mmol/L (136-145) Potassium Level 4.5 mmol/L (3.5-5.1) Chloride Level 105 mmol/L (98-107) Carbon Dioxide Level 29 mmol/L (21-32) Anion Gap 8 (6-14) Blood Urea Nitrogen 17 mg/dL (7-20) Creatinine 1.2 mg/dL (0.6-1.0) H Estimated GFR (Cockcroft-Gault) 44.0 BUN/Creatinine Ratio 14 (6-20) Glucose Level 98 mg/dL (70-99) Calcium Level 9.4 mg/dL (8.5-10.1) Magnesium Level 2.1 mg/dL (1.8-2.4) Total Bilirubin 0.3 mg/dL (0.2-1.0) Aspartate Amino Transferase (AST) 30 U/L (15-37) Alanine Aminotransferase (ALT) 24 U/L (14-59) Alkaline Phosphatase 100 U/L (46-116) Total Protein 6.4 g/dL (6.4-8.2) Albumin 3.1 g/dL (3.4-5.0) L Albumin/Globulin Ratio 0.9 (1.0-1.7) L Current Medications: Meds: Current Medications Acetaminophen (Tylenol) 650 mg PRN Q6HRS PRN PO PAIN / TEMP; Start 05/19/17 at 16:15; Stop 05/19/17 at 18:42; Status DC Multi-Ingredient Ointment (Analgesic [place]) 1 missael PRN QID PRN TP MUSCLE PAIN; Start 05/19/17 at 16:15 Al Hydroxide/Mg Hydroxide (Mylanta Plus Xs) 15 ml PRN AFTMEALHC PRN PO DYSPEPSIA Last administered on 05/26/17at 20:02; Start 05/19/17 at 16:15 Magnesium Hydroxide (Milk Of Magnesia) 2,400 mg PRN QHS PRN PO CONSTIPATION; Start 05/19/17 at 16:15 Clonazepam (KlonoPIN) 1 mg BID PO Last administered on 05/29/17at 08:45; Start at 21:00; Stop 05/29/17 at 17:47; Status DC Donepezil HCl (Aricept) 5 mg QHS PO Last administered on 05/30/17at 20:24; Start 05/19/17 at 21:00; Stop 05/31/17 at 18:41; Status DC Lamotrigine (LaMICtal) 150 mg BID PO Last administered on 05/20/17at 20:17; Start 05/19/17 at 21:00; Stop 05/20/17 at 20:37; Status DC Memantine (Namenda) 5 mg DAILY PO Last administered on 05/31/17at 07:49; Start at 09:00 Mirtazapine (Remeron) 15 mg QHS PO Last administered on 05/30/17at 20:24; Start 05/19/17 at 21:00 Quetiapine Fumarate (SEROquel) 400 mg QHS PO Last administered on 05/22/17at 19: 57; Start 05/19/17 at 21:00; Stop 05/23/17 at 18:44; Status DC Venlafaxine HCl (Effexor) 50 mg TID PO Last administered on 05/20/17at 14:00; Start 05/19/17 at 21:00; Stop 05/20/17 at 19:25; Status DC Acetaminophen (Tylenol) 650 mg PRN Q4HRS PRN PO PAIN Last administered on at 05:08; Start 05/19/17 at 18:15 Vitamin D (Vitamin D3) 3,000 unit QHS PO Last administered on 05/30/17at 20:24; Start 05/19/17 at 21:00 Fluticasone Propionate (Flonase) 2 spray PRN BID PRN NS ALLERGIES; Start at 18:15 Gabapentin (Neurontin) 100 mg PRN Q6HRS PRN PO ANXIETY; Start 05/19/17 at 18:15 ; Stop 05/20/17 at 19:25; Status DC Guaifenesin (Mucinex Er) 600 mg PRN BID PRN PO coughing; Start 05/19/17 at 18: 15 Ketoconazole (Nizoral 2% Shampoo) 1 missael QMONFR TP ; Start 05/26/17 at 16:00 Lidocaine HCl (Uro-Jet) 5 missael PRN Q4HRS PRN TP PAIN; Start 05/19/17 at 18:15; Stop 05/19/17 at 20:05; Status DC Nystatin (Mycostatin) 1 missael PRN BID PRN TP itching; Start 05/19/17 at 18:15 Polyethylene Glycol (miraLAX) 17 gm HS PO Last administered on 05/30/17at 20:25; Start 05/19/17 at 21:00 Gabapentin (Neurontin) 600 mg QID PO Last administered on 05/20/17at 17:21; Start 05/19/17 at 21:00; Stop 05/20/17 at 19:25; Status DC Multivitamins/ Calcium (Thera-M Plus) 1 tab DAILY PO Last administered on at 07:59; Start 05/20/17 at 09:00; Stop 05/21/17 at 14:59; Status DC Fish Oil (Fish Oil) 1,000 mg QHS PO Last administered on 05/30/17at 20:24; Start 05/19/17 at 21:00 Ondansetron HCl (Zofran Odt) 4 mg PRN Q6HRS PRN PO NAUSEA; Start 05/19/17 at 19 :00 Non-Formulary Medication 1 drop QID EACHEYE ; Start 05/19/17 at 21:00; Stop at 21:00; Status DC Artificial Tears (Artificial Tears) 1 drop PRN QID PRN OU DRY EYE; Start at 19:00; Stop 05/20/17 at 14:59; Status DC Lidocaine HCl (Xylocaine 2% Topical 5gm Tube) 1 missael PRN Q4HRS PRN TP PAIN; Start 05/19/17 at 20:15; Stop 05/20/17 at 14:59; Status DC Lidocaine HCl (Xylocaine 2% Topical 5gm Tube) 1 missael PRN Q4HRS PRN TP PAIN Last administered on 05/23/17at 05:41; Start 05/20/17 at 14:59 Artificial Tears (Artificial Tears) 1 drop PRN QID PRN OU DRY EYE Last administered on 05/29/17at 08:44; Start 05/20/17 at 14:59 Gabapentin (Neurontin) 600 mg TID PO Last administered on 05/31/17at 13:53; Start 05/20/17 at 21:00 Duloxetine HCl (Cymbalta) 30 mg DAILY PO Last administered on 05/31/17 07:49; Start 05/21/17 at 09:00 Lamotrigine (LaMICtal) 150 mg DAILY PO Last administered on 05/29/17 08:40; Start 05/21/17 at 09:00; Stop 05/29/17 at 17:46; Status DC Lamotrigine (LaMICtal) 200 mg HS PO Last administered on 05/28/17 19:45; Start 05/20/17 at 21:00; Stop 05/29/17 at 17:46; Status DC Prenat Multivit/ [place]/Iron/Folic Ac (Multivitamin ) 1 tab DAILYBFRSUP PO Last administered on 05/31/17 17:03; Start 05/21/17 at 17:00 Fosfomycin Tromethamine (Monurol) 3 gm 1X ONCE PO Last administered on 15:00; Start 05/21/17 at 15:00; Stop 05/21/17 at 15:01; Status DC Quetiapine Fumarate (SEROquel) 300 mg QHS PO Last administered on 05/25/17 20: 28; Start 05/23/17 at 21:00; Stop 05/26/17 at 17:47; Status DC Nystatin (Nystop) 15 missael STK-MED ONCE TP Last administered on 05/24/17 17:40; Start 05/24/17 at 17:40; Stop 05/24/17 at 17:41; Status DC Sodium Chloride (Saline Mist Nasal) 1 missael PRN Q1HR PRN NS NASAL CONGESTION Last administered on 05/27/17 20:38; Start 05/25/17 at 09:15 Quetiapine Fumarate (SEROquel) 200 mg QHS PO Last administered on 05/30/17 20: 24; Start 05/26/17 at 21:00 Ketorolac Tromethamine (Acular) 1 drop Q8HRS OD Last administered on 05/31/17 13:53; Start 05/29/17 at 14:00; Stop 06/03/17 at 13:59 Lamotrigine (LaMICtal) 200 mg BID PO Last administered on 05/31/17 07:49; Start 05/29/17 at 21:00 Clonazepam (KlonoPIN) 1 mg DAILY PO Last administered on 05/31/17at 07:57; Start 05/30/17 at 09:00 Clonazepam (KlonoPIN) 0.75 mg QHS PO Last administered on 05/30/17at 20:26; Start 05/29/17 at 21:00 Donepezil HCl (Aricept) 10 mg QHS PO ; Start 05/31/17 at 21:00 Active Scripts Active Reported Vitamin D3 (Cholecalciferol (Vitamin D3)) 1,000 Unit Tablet 3,000 Unit PO QHS Systane 0.3-0.4% Eye Drops (Propylene Glycol/Peg 400) 15 Ml Drops 1 Drop EACHEYE QID Systane 0.3-0.4% Eye Drops (Propylene Glycol/Peg 400) 15 Ml Drops 1 Drop EACHEYE QIDPRN PRN Pain Reliever Plus Tablet (Aspirin/Acetaminophen/Caffeine) 1 Each Tablet 2 Each PO PRN PRN Ondansetron Hcl 4 Mg Tablet 4 Mg PO PRN Q6HRS PRN Nystatin 100,000 Unit/1 Ml Oral.susp 100,000 Unit PO Nystatin 15 Gm Cream..g. 1 Missael TP PRN BID PRN Miralax (Polyethylene Glycol 3350) 17 Gm Powd.pack 17 Gm PO HS Lidocaine Hcl 5 Ml Jel..ml. 5 Ml TOP PRN Q4HRS Ketoconazole 120 Ml Shampoo 1 Missael TP TWICE WEEKLY Ibuprofen 100 Mg/5 Ml Oral.susp 200 Mg PO PRN TID PRN Hydroxyzine Hcl 25 Mg Tablet 25 Mg PO PRN Q4HRS PRN Hydrocortisone 453.6 Gm Oint...g. 1 Missael TP PRN BID PRN Epa-Dha 720 Softgel ([place]-3/Dha/Epa/Fish Oil) 1 Each Capsule 1 Each PO QHS Donepezil Hcl 5 Mg Tablet 5 Mg PO QHS Saline Nasal [place] (Sodium Chloride) 30 Ml [place] 1 Spr NS PRN PRN Tylenol (Acetaminophen) 325 Mg Tablet 650 Mg PO PRN Q4HRS PRN Seroquel (Quetiapine Fumarate) 400 Mg Tablet 400 Mg PO HS Mirtazapine 15 Mg Tablet 15 Mg PO QHS Lamotrigine 150 Mg Tablet 150 Mg PO BID Fluticasone Propionate Nasal [place] (Fluticasone Propionate) 16 Gm [place].susp 2 [place] NS PRN BID PRN Effexor Xr (Venlafaxine Hcl) 150 Mg Cap.er.24h 150 Mg PO DAILY Multi Vitamin Daily (Multivitamin) 1 Each Tablet 1 Each PO DAILY Mucinex (Guaifenesin) 600 Mg Tablet.er 600 Mg PO PRN BID PRN Namenda (Memantine Hcl) 10 Mg Tablet 5 Mg PO DAILY Gabapentin 600 Mg Tablet 600 Mg PO QID Gabapentin 100 Mg Capsule 100 Mg PO PRN Q6HRS Clonazepam 1 Mg Tablet 1 Mg PO BID I have reviewed the current psychotropics carefully including drug interactions. Risk benefit ratio favors no change other than as noted in my dictated progress note. Diagnosis: Problems: (1) Major depression (2) Anxiety (3) Bipolar affective disorder, mixed (4) Anxiety disorder (5) Major depressive disorder, recurrent episode (6) Impulse control disorder BRIAN CHAPA MD May 31, 2017 19:22
[2017-05-31] MEDS: POLYETHYLENE GLYCOL 3350 17 GM PACKET. PO SCH (20:19)
[2017-05-31] MEDS: QUEtiapine 100 MG TABLET. PO SCH (20:20)
[2017-05-31] MEDS: MIRTAZAPINE 15 MG TABLET PO SCH (20:20)
[2017-05-31] MEDS: OMEGA-3 FATTY ACIDS/FISH OIL 1,000 MG CAPSULE. PO SCH (20:20)
[2017-05-31] MEDS: CHOLECALCIFEROL (VITAMIN D3) 1,000 UNIT TABLET PO SCH (20:20)
[2017-05-31] MEDS: DONEPEZIL HCL 10 MG TABLET PO SCH (20:24)
--- NOTE | 2017-06-01 00:21 | PN ---
DATE: 05/30/2017 This is a late entry, covers the elements not covered in my initial note, 05/30/2017. SUBJECTIVE: I met with the patient evening of 05/30/2017. The patient slept 7-1/2 hours the previous evening, has done reasonably well. Appears confused. UA is positive, sent for culture. This may be causing part of her confusion. Social, less depressed, but tearful in the morning. REVIEW OF SYSTEMS: Ambulation impaired, in the wheelchair. No CV, , pulmonary, eye system symptoms on review. MENTAL STATUS EXAM: Oriented to herself and situation. Speech is coherent, abstraction fair, computation impaired, language function intact. Attention span short. She was pleasant, smiling as I met with her. LABORATORY DATA: Reviewed. IMPRESSION: Bipolar 1 disorder, depressed, partial remission; anxiety disorder, unspecified; cognitive disorder, unspecified; possible urinary tract infection. PLAN: Maintain current psychotropics. Defer management of urinary tract infection to Dr. Ch, which may help improve her confusion as well. Continue Klonopin, Lamictal, Cymbalta, Namenda, Seroquel, Remeron, and Aricept for now. BRIAN CHAPA MD DR: ANTONIO/gianfranco JOB#: [id number] / [id number]
[2017-06-01 06:02] VITALS: BP 119/73
[2017-06-01] MEDS: KETOROLAC TROMETHAMINE 0.5% OPHTH SOLUTION 3ML BOTTLE. OD SCH ×3 (06:16→22:00)
[2017-06-01] MEDS: MEMANTINE 5 MG TABLET. PO SCH (08:05)
[2017-06-01] MEDS: lamoTRIgine 100 MG TABLET. PO SCH ×2 (08:05→19:24)
[2017-06-01] MEDS: DULoxetine HCL 30 MG CAPSULE.DR PO SCH (08:05)
[2017-06-01] MEDS: GABAPENTIN 300 MG CAPSULE. PO SCH ×3 (08:05→19:24)
[2017-06-01] MEDS: clonazePAM 1 MG TABLET PO SCH (08:07)
[2017-06-01 15:29] VITALS: BP 106/66
[2017-06-01] MEDS: PRENATAL MULTIVITAMIN TABLET. PO SCH (16:51)
[2017-06-01] MEDS: QUEtiapine 100 MG TABLET. PO SCH (19:23)
[2017-06-01] MEDS: CHOLECALCIFEROL (VITAMIN D3) 1,000 UNIT TABLET PO SCH (19:23)
[2017-06-01] MEDS: POLYETHYLENE GLYCOL 3350 17 GM PACKET. PO SCH (19:24)
[2017-06-01] MEDS: OMEGA-3 FATTY ACIDS/FISH OIL 1,000 MG CAPSULE. PO SCH (19:24)
[2017-06-01] MEDS: DONEPEZIL HCL 10 MG TABLET PO SCH (19:24)
--- NOTE | 2017-06-01 20:23 | PDOC ---
Exam Note: Greg Note: Please also refer to the separate dictated note~for this date of service dictated separately.~Patient seen individually. Discussed the patient with Nursing staff reviewed the chart.~Reviewed interim history and current functioning. Reviewed vital signs,~Labs/ Radiology~and current medications noted below. Continue current treatment with the changes noted in the dictated addendum note Assessment: Vital Signs: Vital Signs Date Time Temp Pulse Resp B/P (MAP) Pulse Ox O2 Delivery O2 Flow Rate FiO2 06/01/17 15:29 97.9 99 20 106/66 (79) 98 05/28/17 06:22 Room Air I&O Intake and Output 06/01/17 07:00 Intake Total 960 ml Balance 960 ml Intake Oral 960 ml Current Medications: Meds: Current Medications Acetaminophen (Tylenol) 650 mg PRN Q6HRS PRN PO PAIN / TEMP; Start 05/19/17 at 16:15; Stop 05/19/17 at 18:42; Status DC Multi-Ingredient Ointment (Analgesic [place]) 1 missael PRN QID PRN TP MUSCLE PAIN; Start 05/19/17 at 16:15 Al Hydroxide/Mg Hydroxide (Mylanta Plus Xs) 15 ml PRN AFTMEALHC PRN PO DYSPEPSIA Last administered on 05/26/17at 20:02; Start 05/19/17 at 16:15 Magnesium Hydroxide (Milk Of Magnesia) 2,400 mg PRN QHS PRN PO CONSTIPATION; Start 05/19/17 at 16:15 Clonazepam (KlonoPIN) 1 mg BID PO Last administered on 05/29/17at 08:45; Start at 21:00; Stop 05/29/17 at 17:47; Status DC Donepezil HCl (Aricept) 5 mg QHS PO Last administered on 05/30/17at 20:24; Start 05/19/17 at 21:00; Stop 05/31/17 at 18:41; Status DC Lamotrigine (LaMICtal) 150 mg BID PO Last administered on 05/20/17at 20:17; Start 05/19/17 at 21:00; Stop 05/20/17 at 20:37; Status DC Memantine (Namenda) 5 mg DAILY PO Last administered on 06/01/17at 08:05; Start at 09:00 Mirtazapine (Remeron) 15 mg QHS PO Last administered on 05/31/17at 20:20; Start 05/19/17 at 21:00 Quetiapine Fumarate (SEROquel) 400 mg QHS PO Last administered on 05/22/17at 19: 57; Start 05/19/17 at 21:00; Stop 05/23/17 at 18:44; Status DC Venlafaxine HCl (Effexor) 50 mg TID PO Last administered on 05/20/17at 14:00; Start 05/19/17 at 21:00; Stop 05/20/17 at 19:25; Status DC Acetaminophen (Tylenol) 650 mg PRN Q4HRS PRN PO PAIN Last administered on at 05:08; Start 05/19/17 at 18:15 Vitamin D (Vitamin D3) 3,000 unit QHS PO Last administered on 06/01/17at 19:23; Start 05/19/17 at 21:00 Fluticasone Propionate (Flonase) 2 spray PRN BID PRN NS ALLERGIES; Start at 18:15 Gabapentin (Neurontin) 100 mg PRN Q6HRS PRN PO ANXIETY; Start 05/19/17 at 18:15 ; Stop 05/20/17 at 19:25; Status DC Guaifenesin (Mucinex Er) 600 mg PRN BID PRN PO coughing; Start 05/19/17 at 18: 15 Ketoconazole (Nizoral 2% Shampoo) 1 missael QMONFR TP ; Start 05/26/17 at 16:00 Lidocaine HCl (Uro-Jet) 5 missael PRN Q4HRS PRN TP PAIN; Start 05/19/17 at 18:15; Stop 05/19/17 at 20:05; Status DC Nystatin (Mycostatin) 1 missael PRN BID PRN TP itching; Start 05/19/17 at 18:15 Polyethylene Glycol (miraLAX) 17 gm HS PO Last administered on 06/01/17at 19:24; Start 05/19/17 at 21:00 Gabapentin (Neurontin) 600 mg QID PO Last administered on 05/20/17at 17:21; Start 05/19/17 at 21:00; Stop 05/20/17 at 19:25; Status DC Multivitamins/ Calcium (Thera-M Plus) 1 tab DAILY PO Last administered on at 07:59; Start 05/20/17 at 09:00; Stop 05/21/17 at 14:59; Status DC Fish Oil (Fish Oil) 1,000 mg QHS PO Last administered on 06/01/17 19:24; Start 05/19/17 at 21:00 Ondansetron HCl (Zofran Odt) 4 mg PRN Q6HRS PRN PO NAUSEA; Start 05/19/17 at 19 :00 Non-Formulary Medication 1 drop QID EACHEYE ; Start 05/19/17 at 21:00; Stop at 21:00; Status DC Artificial Tears (Artificial Tears) 1 drop PRN QID PRN OU DRY EYE; Start at 19:00; Stop 05/20/17 at 14:59; Status DC Lidocaine HCl (Xylocaine 2% Topical 5gm Tube) 1 missael PRN Q4HRS PRN TP PAIN; Start 05/19/17 at 20:15; Stop 05/20/17 at 14:59; Status DC Lidocaine HCl (Xylocaine 2% Topical 5gm Tube) 1 missael PRN Q4HRS PRN TP PAIN Last administered on 05/23/17at 05:41; Start 05/20/17 at 14:59 Artificial Tears (Artificial Tears) 1 drop PRN QID PRN OU DRY EYE Last administered on 05/29/17at 08:44; Start 05/20/17 at 14:59 Gabapentin (Neurontin) 600 mg TID PO Last administered on 06/01/17 19:24; Start 05/20/17 at 21:00; Stop 06/01/17 at 23:00 Duloxetine HCl (Cymbalta) 30 mg DAILY PO Last administered on 06/01/17 08:05; Start 05/21/17 at 09:00 Lamotrigine (LaMICtal) 150 mg DAILY PO Last administered on 05/29/17at 08:40; Start 05/21/17 at 09:00; Stop 05/29/17 at 17:46; Status DC Lamotrigine (LaMICtal) 200 mg HS PO Last administered on 2/4/18at 19:45; Start 05/20/17 at 21:00; Stop 05/29/17 at 17:46; Status DC Prenat Multivit/ [place]/Iron/Folic Ac (Multivitamin ) 1 tab DAILYBFRSUP PO Last administered on 06/01/17 16:51; Start 05/21/17 at 17:00 Fosfomycin Tromethamine (Monurol) 3 gm 1X ONCE PO Last administered on 15:00; Start 05/21/17 at 15:00; Stop 05/21/17 at 15:01; Status DC Quetiapine Fumarate (SEROquel) 300 mg QHS PO Last administered on 05/25/17 20: 28; Start 05/23/17 at 21:00; Stop 05/26/17 at 17:47; Status DC Nystatin (Nystop) 15 missael STK-MED ONCE TP Last administered on 05/24/17 17:40; Start 05/24/17 at 17:40; Stop 05/24/17 at 17:41; Status DC Sodium Chloride (Saline Mist Nasal) 1 missael PRN Q1HR PRN NS NASAL CONGESTION Last administered on 05/27/17 20:38; Start 05/25/17 at 09:15 Quetiapine Fumarate (SEROquel) 200 mg QHS PO Last administered on 06/01/17 19: 23; Start 05/26/17 at 21:00 Ketorolac Tromethamine (Acular) 1 drop Q8HRS OD Last administered on 06/01/17 13:42; Start 05/29/17 at 14:00; Stop 06/03/17 at 13:59 Lamotrigine (LaMICtal) 200 mg BID PO Last administered on 06/01/17 19:24; Start 05/29/17 at 21:00 Clonazepam (KlonoPIN) 1 mg DAILY PO Last administered on 06/01/17 08:07; Start 05/30/17 at 09:00; Stop 06/01/17 at 12:25; Status DC Clonazepam (KlonoPIN) 0.75 mg QHS PO Last administered on 05/31/17 20:24; Start 05/29/17 at 21:00; Stop 06/08/17 at 21:00 Donepezil HCl (Aricept) 10 mg QHS PO Last administered on 06/01/17at 19:24; Start 05/31/17 at 21:00 Clonazepam (KlonoPIN) 0.75 mg DAILY PO ; Start 06/02/17 at 09:00; Stop 06/04/17 at 09:00 Clonazepam (KlonoPIN) 0.5 mg DAILY PO ; Start 06/05/17 at 09:00 Clonazepam (KlonoPIN) 0.5 mg HS PO ; Start 06/08/17 at 21:00 Ciprofloxacin (Cipro) 250 mg BID PO ; Start 06/01/17 at 21:00; Stop 06/06/17 at 20:59 Gabapentin (Neurontin) 300 mg QID PO ; Start 06/02/17 at 04:00; Stop 06/05/17 at 23:00 Gabapentin (Neurontin) 300 mg TID PO ; Start 06/06/17 at 04:00; Stop 06/08/17 at 23:00 Gabapentin (Neurontin) 300 mg BID PO ; Start 06/09/17 at 04:00 Active Scripts Active Reported Vitamin D3 (Cholecalciferol (Vitamin D3)) 1,000 Unit Tablet 3,000 Unit PO QHS Systane 0.3-0.4% Eye Drops (Propylene Glycol/Peg 400) 15 Ml Drops 1 Drop EACHEYE QID Systane 0.3-0.4% Eye Drops (Propylene Glycol/Peg 400) 15 Ml Drops 1 Drop EACHEYE QIDPRN PRN Pain Reliever Plus Tablet (Aspirin/Acetaminophen/Caffeine) 1 Each Tablet 2 Each PO PRN PRN Ondansetron Hcl 4 Mg Tablet 4 Mg PO PRN Q6HRS PRN Nystatin 100,000 Unit/1 Ml Oral.susp 100,000 Unit PO Nystatin 15 Gm Cream..g. 1 Missael TP PRN BID PRN Miralax (Polyethylene Glycol 3350) 17 Gm Powd.pack 17 Gm PO HS Lidocaine Hcl 5 Ml Jel..ml. 5 Ml TOP PRN Q4HRS Ketoconazole 120 Ml Shampoo 1 Missael TP TWICE WEEKLY Ibuprofen 100 Mg/5 Ml Oral.susp 200 Mg PO PRN TID PRN Hydroxyzine Hcl 25 Mg Tablet 25 Mg PO PRN Q4HRS PRN Hydrocortisone 453.6 Gm Oint...g. 1 Missael TP PRN BID PRN Epa-Dha 720 Softgel ([place]-3/Dha/Epa/Fish Oil) 1 Each Capsule 1 Each PO QHS Donepezil Hcl 5 Mg Tablet 5 Mg PO QHS Saline Nasal [place] (Sodium Chloride) 30 Ml [place] 1 Spr NS PRN PRN Tylenol (Acetaminophen) 325 Mg Tablet 650 Mg PO PRN Q4HRS PRN Seroquel (Quetiapine Fumarate) 400 Mg Tablet 400 Mg PO HS Mirtazapine 15 Mg Tablet 15 Mg PO QHS Lamotrigine 150 Mg Tablet 150 Mg PO BID Fluticasone Propionate Nasal [place] (Fluticasone Propionate) 16 Gm [place].susp 2 [place] NS PRN BID PRN Effexor Xr (Venlafaxine Hcl) 150 Mg Cap.er.24h 150 Mg PO DAILY Multi Vitamin Daily (Multivitamin) 1 Each Tablet 1 Each PO DAILY Mucinex (Guaifenesin) 600 Mg Tablet.er 600 Mg PO PRN BID PRN Namenda (Memantine Hcl) 10 Mg Tablet 5 Mg PO DAILY Gabapentin 600 Mg Tablet 600 Mg PO QID Gabapentin 100 Mg Capsule 100 Mg PO PRN Q6HRS Clonazepam 1 Mg Tablet 1 Mg PO BID I have reviewed the current psychotropics carefully including drug interactions. Risk benefit ratio favors no change other than as noted in my dictated progress note. Diagnosis: Problems: (1) Major depression (2) Anxiety (3) Bipolar affective disorder, mixed (4) Anxiety disorder (5) Major depressive disorder, recurrent episode (6) Impulse control disorder BRIAN CHAPA MD Jun 01, 2017 20:23
[2017-06-01] MEDS: MIRTAZAPINE 15 MG TABLET PO SCH (21:00)
[2017-06-01] MEDS: CIPROFLOXACIN HCL 250 MG TABLET PO SCH (21:59)
[2017-06-01] MEDS: clonazePAM 0.5 MG TABLET PO SCH (22:00)
[2017-06-02] MEDS: GABAPENTIN 300 MG CAPSULE. PO SCH ×5 (04:00→19:40)
[2017-06-02] MEDS: KETOROLAC TROMETHAMINE 0.5% OPHTH SOLUTION 3ML BOTTLE. OD SCH ×3 (05:49→19:47)
[2017-06-02 06:00] VITALS: BP 100/49
[2017-06-02] MEDS: CIPROFLOXACIN HCL 250 MG TABLET PO SCH ×2 (07:56→19:40)
[2017-06-02] MEDS: DULoxetine HCL 30 MG CAPSULE.DR PO SCH (07:56)
[2017-06-02] MEDS: lamoTRIgine 100 MG TABLET. PO SCH ×2 (07:56→19:41)
[2017-06-02] MEDS: MEMANTINE 5 MG TABLET. PO SCH (07:56)
[2017-06-02] MEDS: clonazePAM 1 MG TABLET PO SCH (07:58)
[2017-06-02] MEDS: KETOCONAZOLE 2% SHAMPOO 120ML BOTTLE. TP SCH (08:52)
[2017-06-02 16:03] VITALS: BP 143/63
[2017-06-02] MEDS: PRENATAL MULTIVITAMIN TABLET. PO SCH (17:37)
[2017-06-02] MEDS: MIRTAZAPINE 15 MG TABLET PO SCH (19:40)
[2017-06-02] MEDS: QUEtiapine 100 MG TABLET. PO SCH (19:40)
[2017-06-02] MEDS: CHOLECALCIFEROL (VITAMIN D3) 1,000 UNIT TABLET PO SCH (19:41)
[2017-06-02] MEDS: DONEPEZIL HCL 10 MG TABLET PO SCH (19:41)
[2017-06-02] MEDS: POLYETHYLENE GLYCOL 3350 17 GM PACKET. PO SCH (19:41)
--- NOTE | 2017-06-02 19:42 | PDOC ---
Exam Note: Greg Note: Please also refer to the separate dictated note~for this date of service dictated separately.~Patient seen individually. Discussed the patient with Nursing staff reviewed the chart.~Reviewed interim history and current functioning. Reviewed vital signs,~Labs/ Radiology~and current medications noted below. Continue current treatment with the changes noted in the dictated addendum note Assessment: Vital Signs: Vital Signs Date Time Temp Pulse Resp B/P (MAP) Pulse Ox O2 Delivery O2 Flow Rate FiO2 06/02/17 16:03 99.0 104 19 143/63 (89) 94 05/28/17 06:22 Room Air I&O Intake and Output 06/02/17 07:00 Intake Total 1080 ml Balance 1080 ml Intake Oral 1080 ml Current Medications: Meds: Current Medications Acetaminophen (Tylenol) 650 mg PRN Q6HRS PRN PO PAIN / TEMP; Start 05/19/17 at 16:15; Stop 05/19/17 at 18:42; Status DC Multi-Ingredient Ointment (Analgesic [place]) 1 missael PRN QID PRN TP MUSCLE PAIN; Start 05/19/17 at 16:15 Al Hydroxide/Mg Hydroxide (Mylanta Plus Xs) 15 ml PRN AFTMEALHC PRN PO DYSPEPSIA Last administered on 05/26/17at 20:02; Start 05/19/17 at 16:15 Magnesium Hydroxide (Milk Of Magnesia) 2,400 mg PRN QHS PRN PO CONSTIPATION; Start 05/19/17 at 16:15 Clonazepam (KlonoPIN) 1 mg BID PO Last administered on 05/29/17at 08:45; Start at 21:00; Stop 05/29/17 at 17:47; Status DC Donepezil HCl (Aricept) 5 mg QHS PO Last administered on 05/30/17at 20:24; Start 05/19/17 at 21:00; Stop 05/31/17 at 18:41; Status DC Lamotrigine (LaMICtal) 150 mg BID PO Last administered on 05/20/17at 20:17; Start 05/19/17 at 21:00; Stop 05/20/17 at 20:37; Status DC Memantine (Namenda) 5 mg DAILY PO Last administered on 06/02/17at 07:56; Start at 09:00 Mirtazapine (Remeron) 15 mg QHS PO Last administered on 06/01/17at 21:00; Start 05/19/17 at 21:00 Quetiapine Fumarate (SEROquel) 400 mg QHS PO Last administered on 05/22/17at 19: 57; Start 05/19/17 at 21:00; Stop 05/23/17 at 18:44; Status DC Venlafaxine HCl (Effexor) 50 mg TID PO Last administered on 05/20/17at 14:00; Start 05/19/17 at 21:00; Stop 05/20/17 at 19:25; Status DC Acetaminophen (Tylenol) 650 mg PRN Q4HRS PRN PO PAIN Last administered on at 05:08; Start 05/19/17 at 18:15 Vitamin D (Vitamin D3) 3,000 unit QHS PO Last administered on 06/01/17at 19:23; Start 05/19/17 at 21:00 Fluticasone Propionate (Flonase) 2 spray PRN BID PRN NS ALLERGIES; Start at 18:15 Gabapentin (Neurontin) 100 mg PRN Q6HRS PRN PO ANXIETY; Start 05/19/17 at 18:15 ; Stop 05/20/17 at 19:25; Status DC Guaifenesin (Mucinex Er) 600 mg PRN BID PRN PO coughing; Start 05/19/17 at 18: 15 Ketoconazole (Nizoral 2% Shampoo) 1 missael QMONFR TP Last administered on at 08:52; Start 05/26/17 at 16:00 Lidocaine HCl (Uro-Jet) 5 missael PRN Q4HRS PRN TP PAIN; Start 05/19/17 at 18:15; Stop 05/19/17 at 20:05; Status DC Nystatin (Mycostatin) 1 missael PRN BID PRN TP itching; Start 05/19/17 at 18:15; Stop 06/02/17 at 11:13; Status DC Polyethylene Glycol (miraLAX) 17 gm HS PO Last administered on 06/01/17at 19:24; Start 05/19/17 at 21:00 Gabapentin (Neurontin) 600 mg QID PO Last administered on 05/20/17at 17:21; Start 05/19/17 at 21:00; Stop 05/20/17 at 19:25; Status DC Multivitamins/ Calcium (Thera-M Plus) 1 tab DAILY PO Last administered on at 07:59; Start 05/20/17 at 09:00; Stop 05/21/17 at 14:59; Status DC Fish Oil (Fish Oil) 1,000 mg QHS PO Last administered on 06/01/17at 19:24; Start 05/19/17 at 21:00 Ondansetron HCl (Zofran Odt) 4 mg PRN Q6HRS PRN PO NAUSEA; Start 05/19/17 at 19 :00 Non-Formulary Medication 1 drop QID EACHEYE ; Start 05/19/17 at 21:00; Stop at 21:00; Status DC Artificial Tears (Artificial Tears) 1 drop PRN QID PRN OU DRY EYE; Start at 19:00; Stop 05/20/17 at 14:59; Status DC Lidocaine HCl (Xylocaine 2% Topical 5gm Tube) 1 missael PRN Q4HRS PRN TP PAIN; Start 05/19/17 at 20:15; Stop 05/20/17 at 14:59; Status DC Lidocaine HCl (Xylocaine 2% Topical 5gm Tube) 1 missael PRN Q4HRS PRN TP PAIN Last administered on 05/23/17at 05:41; Start 05/20/17 at 14:59 Artificial Tears (Artificial Tears) 1 drop PRN QID PRN OU DRY EYE Last administered on 05/29/17at 08:44; Start 05/20/17 at 14:59 Gabapentin (Neurontin) 600 mg TID PO Last administered on 06/01/17 19:24; Start 05/20/17 at 21:00; Stop 06/01/17 at 23:00; Status DC Duloxetine HCl (Cymbalta) 30 mg DAILY PO Last administered on 06/02/17at 07:56; Start 05/21/17 at 09:00 Lamotrigine (LaMICtal) 150 mg DAILY PO Last administered on 05/29/17at 08:40; Start 05/21/17 at 09:00; Stop 05/29/17 at 17:46; Status DC Lamotrigine (LaMICtal) 200 mg HS PO Last administered on 05/28/17 19:45; Start 05/20/17 at 21:00; Stop 05/29/17 at 17:46; Status DC Prenat Multivit/ [place]/Iron/Folic Ac (Multivitamin ) 1 tab DAILYBFRSUP PO Last administered on 06/02/17 17:37; Start 05/21/17 at 17:00 Fosfomycin Tromethamine (Monurol) 3 gm 1X ONCE PO Last administered on 15:00; Start 05/21/17 at 15:00; Stop 05/21/17 at 15:01; Status DC Quetiapine Fumarate (SEROquel) 300 mg QHS PO Last administered on 05/25/17 20: 28; Start 05/23/17 at 21:00; Stop 05/26/17 at 17:47; Status DC Nystatin (Nystop) 15 missael STK-MED ONCE TP Last administered on 05/24/17at 17:40; Start 05/24/17 at 17:40; Stop 05/24/17 at 17:41; Status DC Sodium Chloride (Saline Mist Nasal) 1 missael PRN Q1HR PRN NS NASAL CONGESTION Last administered on 05/27/17 20:38; Start 05/25/17 at 09:15 Quetiapine Fumarate (SEROquel) 200 mg QHS PO Last administered on 06/01/17 19: 23; Start 05/26/17 at 21:00 Ketorolac Tromethamine (Acular) 1 drop Q8HRS OD Last administered on 06/02/17 12:40; Start 05/29/17 at 14:00; Stop 06/03/17 at 13:59 Lamotrigine (LaMICtal) 200 mg BID PO Last administered on 06/02/17 07:56; Start 05/29/17 at 21:00 Clonazepam (KlonoPIN) 1 mg DAILY PO Last administered on 06/01/17 08:07; Start 05/30/17 at 09:00; Stop 06/01/17 at 12:25; Status DC Clonazepam (KlonoPIN) 0.75 mg QHS PO Last administered on 06/01/17 22:00; Start 05/29/17 at 21:00; Stop 06/08/17 at 21:00 Donepezil HCl (Aricept) 10 mg QHS PO Last administered on 06/01/17at 19:24; Start 05/31/17 at 21:00 Clonazepam (KlonoPIN) 0.75 mg DAILY PO Last administered on 06/02/17at 07:58; Start 06/02/17 at 09:00; Stop 06/04/17 at 09:00 Clonazepam (KlonoPIN) 0.5 mg DAILY PO ; Start 06/05/17 at 09:00 Clonazepam (KlonoPIN) 0.5 mg HS PO ; Start 06/08/17 at 21:00 Ciprofloxacin (Cipro) 250 mg BID PO Last administered on 06/02/17at 07:56; Start 06/01/17 at 21:00; Stop 06/06/17 at 20:59 Gabapentin (Neurontin) 300 mg QID PO Last administered on 06/02/17at 17:37; Start 06/02/17 at 04:00; Stop 06/05/17 at 23:00 Gabapentin (Neurontin) 300 mg TID PO ; Start 06/06/17 at 04:00; Stop 06/08/17 at 23:00 Gabapentin (Neurontin) 300 mg BID PO ; Start 06/09/17 at 04:00 Lactobacillus Rhamnosus (Culturelle) 1 cap BID PO ; Start 06/02/17 at 21:00 Nystatin (Mycostatin) 1 missael BID TP ; Start 06/02/17 at 21:00 Active Scripts Active Reported Vitamin D3 (Cholecalciferol (Vitamin D3)) 1,000 Unit Tablet 3,000 Unit PO QHS Systane 0.3-0.4% Eye Drops (Propylene Glycol/Peg 400) 15 Ml Drops 1 Drop EACHEYE QID Systane 0.3-0.4% Eye Drops (Propylene Glycol/Peg 400) 15 Ml Drops 1 Drop EACHEYE QIDPRN PRN Pain Reliever Plus Tablet (Aspirin/Acetaminophen/Caffeine) 1 Each Tablet 2 Each PO PRN PRN Ondansetron Hcl 4 Mg Tablet 4 Mg PO PRN Q6HRS PRN Nystatin 100,000 Unit/1 Ml Oral.susp 100,000 Unit PO Nystatin 15 Gm Cream..g. 1 Missael TP PRN BID PRN Miralax (Polyethylene Glycol 3350) 17 Gm Powd.pack 17 Gm PO HS Lidocaine Hcl 5 Ml Jel..ml. 5 Ml TOP PRN Q4HRS Ketoconazole 120 Ml Shampoo 1 Missael TP TWICE WEEKLY Ibuprofen 100 Mg/5 Ml Oral.susp 200 Mg PO PRN TID PRN Hydroxyzine Hcl 25 Mg Tablet 25 Mg PO PRN Q4HRS PRN Hydrocortisone 453.6 Gm Oint...g. 1 Missael TP PRN BID PRN Epa-Dha 720 Softgel ([place]-3/Dha/Epa/Fish Oil) 1 Each Capsule 1 Each PO QHS Donepezil Hcl 5 Mg Tablet 5 Mg PO QHS Saline Nasal [place] (Sodium Chloride) 30 Ml [place] 1 Spr NS PRN PRN Tylenol (Acetaminophen) 325 Mg Tablet 650 Mg PO PRN Q4HRS PRN Seroquel (Quetiapine Fumarate) 400 Mg Tablet 400 Mg PO HS Mirtazapine 15 Mg Tablet 15 Mg PO QHS Lamotrigine 150 Mg Tablet 150 Mg PO BID Fluticasone Propionate Nasal [place] (Fluticasone Propionate) 16 Gm [place].susp 2 [place] NS PRN BID PRN Effexor Xr (Venlafaxine Hcl) 150 Mg Cap.er.24h 150 Mg PO DAILY Multi Vitamin Daily (Multivitamin) 1 Each Tablet 1 Each PO DAILY Mucinex (Guaifenesin) 600 Mg Tablet.er 600 Mg PO PRN BID PRN Namenda (Memantine Hcl) 10 Mg Tablet 5 Mg PO DAILY Gabapentin 600 Mg Tablet 600 Mg PO QID Gabapentin 100 Mg Capsule 100 Mg PO PRN Q6HRS Clonazepam 1 Mg Tablet 1 Mg PO BID I have reviewed the current psychotropics carefully including drug interactions. Risk benefit ratio favors no change other than as noted in my dictated progress note. Diagnosis: Problems: (1) Major depression (2) Anxiety (3) Bipolar affective disorder, mixed (4) Anxiety disorder (5) Major depressive disorder, recurrent episode (6) Impulse control disorder BRIAN CHAPA MD Jun 02, 2017 19:42
[2017-06-02] MEDS: OMEGA-3 FATTY ACIDS/FISH OIL 1,000 MG CAPSULE. PO SCH (19:43)
[2017-06-02] MEDS: clonazePAM 0.5 MG TABLET PO SCH (19:46)
[2017-06-02] MEDS: LACTOBACILLUS RHAMNOSUS GG 1 CAPSULE. PO SCH (19:46)
[2017-06-02] MEDS ORDERED: NYSTATIN 100,000 UNIT/GM TOPICAL CREAM 15GM TUBE. TP SCH (21:00)
[2017-06-02] MEDS: NYSTATIN 100,000 UNIT/GM TOPICAL CREAM 15GM TUBE. TP SCH (21:00)
--- NOTE | 2017-06-03 03:43 | PN ---
DATE: 05/31/2017 This is a late entry of 05/31/2017 covers elements not covered in my initial note of 05/31/2017. I met with the patient in the evening of 05/31/2017. Per nursing report, the patient has been confused, but not aggressive. UA has been sent to culture, result is awaited and UTI may explain the change in her mental status. Previous evening, she was agitated with another patient, made a vague statement, believed someone was going to kill her. REVIEW OF SYSTEMS: Ambulation impaired, in wheelchair. No CV, , pulmonary, eye system symptoms on review. MENTAL STATUS EXAM: Oriented to herself and situation. Speech coherent, has some latency. Abstraction fair, computation impaired, language function intact, attention span short. Mood and affect remains somewhat withdrawn. LABORATORY DATA: Reviewed. IMPRESSION: Bipolar 1 disorder, depressed with psychotic features, latter in partial remission, history of major depressive disorder, possible urinary tract infection. PLAN: Increase Aricept to 10 mg a day. Continue rest unchanged. MAN Vidal CHAPA MD DR: ANTONIO/gianfranco JOB#: [id number] / [id number]
[2017-06-03 05:58] VITALS: BP 144/71
[2017-06-03] MEDS: KETOROLAC TROMETHAMINE 0.5% OPHTH SOLUTION 3ML BOTTLE. OD SCH (06:23)
[2017-06-03] MEDS: CIPROFLOXACIN HCL 250 MG TABLET PO SCH ×2 (07:42→20:07)
[2017-06-03] MEDS: MEMANTINE 5 MG TABLET. PO SCH (07:42)
[2017-06-03] MEDS: LACTOBACILLUS RHAMNOSUS GG 1 CAPSULE. PO SCH ×2 (07:42→20:06)
[2017-06-03] MEDS: DULoxetine HCL 30 MG CAPSULE.DR PO SCH (07:42)
[2017-06-03] MEDS: GABAPENTIN 300 MG CAPSULE. PO SCH ×4 (07:42→20:07)
[2017-06-03] MEDS: lamoTRIgine 100 MG TABLET. PO SCH ×2 (07:42→20:06)
[2017-06-03] MEDS: NYSTATIN 100,000 UNIT/GM TOPICAL CREAM 15GM TUBE. TP SCH (07:44)
[2017-06-03] MEDS: clonazePAM 1 MG TABLET PO SCH (07:44)
--- NOTE | 2017-06-03 08:35 | PN ---
DATE: 06/01/2017 This is a late entry for date of service 06/01/2017 and covers elements not covered in my initial note 06/01/2017. SUBJECTIVE: I met with the patient at length in the evening of 06/01/2017 and staffed at a treatment team meeting with the entire team on the morning of 06/01/2017. UA culture and sensitivity is positive, we will defer to Dr. Ch for her UTI, which is probably worsening her confusion. She is somewhat paranoid. Her family is concerned about the gabapentin worsening her cognition. REVIEW OF SYSTEMS: Ambulation impaired, in wheelchair. No CV, , pulmonary, eye system symptoms on review. MENTAL STATUS EXAM: Oriented to herself and situation. Speech has some latency, coherent. Abstraction fair, computation impaired, language function intact. Mood and affect remains somewhat labile. LABORATORY DATA: Reviewed. PAST HISTORY: She had a head injury and a fall on 05/10/2017. She is walking well at the [facility] at times. PAST MEDICAL HISTORY: She was a director of diversity and inclusion at [employer], has a past history of 20 ECT treatments at [facility] for depression, bipolar disorder. Slept 8-1/4 hours previous evening. PLAN: Treat the UTI. Reduce Klonopin to 0.75 mg in the morning for 2 days and 0.5 mg thereafter. In the evening, Klonopin 2.5 mg at bedtime; reduce the Neurontin from 600 t.i.d. to 300 four times a day for 3 days, then 3 times a day for 3 days, then twice a day thereafter. Continue rest unchanged. MAN Vidal CHAPA MD DR: ANTONIO/gianfranco JOB#: [id number] / [id number]
[2017-06-03] MEDS: NYSTATIN TOPICAL POWDER 15GM BOTTLE. TP SCH ×2 (09:00→20:09)
[2017-06-03 16:24] VITALS: BP 139/85
[2017-06-03] MEDS: PRENATAL MULTIVITAMIN TABLET. PO SCH (17:00)
[2017-06-03] MEDS: CHOLECALCIFEROL (VITAMIN D3) 1,000 UNIT TABLET PO SCH (20:05)
[2017-06-03] MEDS: MIRTAZAPINE 15 MG TABLET PO SCH (20:06)
[2017-06-03] MEDS: OMEGA-3 FATTY ACIDS/FISH OIL 1,000 MG CAPSULE. PO SCH (20:06)
[2017-06-03] MEDS: QUEtiapine 100 MG TABLET. PO SCH (20:06)
[2017-06-03] MEDS: DONEPEZIL HCL 10 MG TABLET PO SCH (20:07)
[2017-06-03] MEDS: POLYETHYLENE GLYCOL 3350 17 GM PACKET. PO SCH (20:07)
[2017-06-03] MEDS: clonazePAM 0.5 MG TABLET PO SCH (20:10)
--- NOTE | 2017-06-03 21:39 | PDOC ---
Exam Note: Greg Note: Please also refer to the separate dictated note~for this date of service dictated separately.~Patient seen individually. Discussed the patient with Nursing staff reviewed the chart.~Reviewed interim history and current functioning. Reviewed vital signs,~Labs/ Radiology~and current medications noted below. Continue current treatment with the changes noted in the dictated addendum note Assessment: Vital Signs: Vital Signs Date Time Temp Pulse Resp B/P (MAP) Pulse Ox O2 Delivery O2 Flow Rate FiO2 06/03/17 16:24 97.9 96 18 139/85 (103) 98 Room Air I&O Intake and Output 06/03/17 07:00 Intake Total 1200 ml Balance 1200 ml Intake Oral 1200 ml # Bowel Movements 1 Current Medications: Meds: Current Medications Acetaminophen (Tylenol) 650 mg PRN Q6HRS PRN PO PAIN / TEMP; Start 05/19/17 at 16:15; Stop 05/19/17 at 18:42; Status DC Multi-Ingredient Ointment (Analgesic [place]) 1 missael PRN QID PRN TP MUSCLE PAIN; Start 05/19/17 at 16:15 Al Hydroxide/Mg Hydroxide (Mylanta Plus Xs) 15 ml PRN AFTMEALHC PRN PO DYSPEPSIA Last administered on 05/26/17at 20:02; Start 05/19/17 at 16:15 Magnesium Hydroxide (Milk Of Magnesia) 2,400 mg PRN QHS PRN PO CONSTIPATION; Start 05/19/17 at 16:15 Clonazepam (KlonoPIN) 1 mg BID PO Last administered on 05/29/17at 08:45; Start at 21:00; Stop 05/29/17 at 17:47; Status DC Donepezil HCl (Aricept) 5 mg QHS PO Last administered on 05/30/17at 20:24; Start 05/19/17 at 21:00; Stop 05/31/17 at 18:41; Status DC Lamotrigine (LaMICtal) 150 mg BID PO Last administered on 05/20/17at 20:17; Start 05/19/17 at 21:00; Stop 05/20/17 at 20:37; Status DC Memantine (Namenda) 5 mg DAILY PO Last administered on 06/03/17at 07:42; Start 05/20/17 at 09:00 Mirtazapine (Remeron) 15 mg QHS PO Last administered on 06/03/17at 20:06; Start 05/19/17 at 21:00 Quetiapine Fumarate (SEROquel) 400 mg QHS PO Last administered on 05/22/17at 19: 57; Start 05/19/17 at 21:00; Stop 05/23/17 at 18:44; Status DC Venlafaxine HCl (Effexor) 50 mg TID PO Last administered on 05/20/17at 14:00; Start 05/19/17 at 21:00; Stop 05/20/17 at 19:25; Status DC Acetaminophen (Tylenol) 650 mg PRN Q4HRS PRN PO PAIN Last administered on at 05:08; Start 05/19/17 at 18:15 Vitamin D (Vitamin D3) 3,000 unit QHS PO Last administered on 06/03/17at 20:05; Start 05/19/17 at 21:00 Fluticasone Propionate (Flonase) 2 spray PRN BID PRN NS ALLERGIES; Start at 18:15 Gabapentin (Neurontin) 100 mg PRN Q6HRS PRN PO ANXIETY; Start 05/19/17 at 18:15 ; Stop 05/20/17 at 19:25; Status DC Guaifenesin (Mucinex Er) 600 mg PRN BID PRN PO coughing; Start 05/19/17 at 18: 15 Ketoconazole (Nizoral 2% Shampoo) 1 missael QMONFR TP Last administered on at 08:52; Start 05/26/17 at 16:00 Lidocaine HCl (Uro-Jet) 5 missael PRN Q4HRS PRN TP PAIN; Start 05/19/17 at 18:15; Stop 05/19/17 at 20:05; Status DC Nystatin (Mycostatin) 1 missael PRN BID PRN TP itching; Start 05/19/17 at 18:15; Stop 06/02/17 at 11:13; Status DC Polyethylene Glycol (miraLAX) 17 gm HS PO Last administered on 06/03/17at 20:07 ; Start 05/19/17 at 21:00 Gabapentin (Neurontin) 600 mg QID PO Last administered on 05/20/17at 17:21; Start 05/19/17 at 21:00; Stop 05/20/17 at 19:25; Status DC Multivitamins/ Calcium (Thera-M Plus) 1 tab DAILY PO Last administered on at 07:59; Start 05/20/17 at 09:00; Stop 05/21/17 at 14:59; Status DC Fish Oil (Fish Oil) 1,000 mg QHS PO Last administered on 06/03/17at 20:06; Start 05/19/17 at 21:00 Ondansetron HCl (Zofran Odt) 4 mg PRN Q6HRS PRN PO NAUSEA; Start 05/19/17 at 19 :00 Non-Formulary Medication 1 drop QID EACHEYE ; Start 05/19/17 at 21:00; Stop at 21:00; Status DC Artificial Tears (Artificial Tears) 1 drop PRN QID PRN OU DRY EYE; Start at 19:00; Stop 05/20/17 at 14:59; Status DC Lidocaine HCl (Xylocaine 2% Topical 5gm Tube) 1 missael PRN Q4HRS PRN TP PAIN; Start 05/19/17 at 20:15; Stop 05/20/17 at 14:59; Status DC Lidocaine HCl (Xylocaine 2% Topical 5gm Tube) 1 missael PRN Q4HRS PRN TP PAIN Last administered on 05/23/17at 05:41; Start 05/20/17 at 14:59 Artificial Tears (Artificial Tears) 1 drop PRN QID PRN OU DRY EYE Last administered on 05/29/17at 08:44; Start 05/20/17 at 14:59 Gabapentin (Neurontin) 600 mg TID PO Last administered on 06/01/17at 19:24; Start 05/20/17 at 21:00; Stop 06/01/17 at 23:00; Status DC Duloxetine HCl (Cymbalta) 30 mg DAILY PO Last administered on 06/03/17at 07:42; Start 05/21/17 at 09:00; Stop 06/03/17 at 18:33; Status DC Lamotrigine (LaMICtal) 150 mg DAILY PO Last administered on 05/29/17at 08:40; Start 05/21/17 at 09:00; Stop 05/29/17 at 17:46; Status DC Lamotrigine (LaMICtal) 200 mg HS PO Last administered on 05/28/17 19:45; Start 05/20/17 at 21:00; Stop 05/29/17 at 17:46; Status DC Prenat Multivit/ [place]/Iron/Folic Ac (Multivitamin ) 1 tab DAILYBFRSUP PO Last administered on 06/02/17 17:37; Start 05/21/17 at 17:00 Fosfomycin Tromethamine (Monurol) 3 gm 1X ONCE PO Last administered on 15:00; Start 05/21/17 at 15:00; Stop 05/21/17 at 15:01; Status DC Quetiapine Fumarate (SEROquel) 300 mg QHS PO Last administered on 05/25/17 20: 28; Start 05/23/17 at 21:00; Stop 05/26/17 at 17:47; Status DC Nystatin (Nystop) 15 missael STK-MED ONCE TP Last administered on 05/24/17at 17:40; Start 05/24/17 at 17:40; Stop 05/24/17 at 17:41; Status DC Sodium Chloride (Saline Mist Nasal) 1 missael PRN Q1HR PRN NS NASAL CONGESTION Last administered on 05/27/17 20:38; Start 05/25/17 at 09:15 Quetiapine Fumarate (SEROquel) 200 mg QHS PO Last administered on 06/03/17 20: 06; Start 05/26/17 at 21:00 Ketorolac Tromethamine (Acular) 1 drop Q8HRS OD Last administered on 06/03/17 06:23; Start 05/29/17 at 14:00; Stop 06/03/17 at 13:59; Status DC Lamotrigine (LaMICtal) 200 mg BID PO Last administered on 06/03/17 07:42; Start 05/29/17 at 21:00; Stop 06/03/17 at 18:33; Status DC Clonazepam (KlonoPIN) 1 mg DAILY PO Last administered on 06/01/17at 08:07; Start 05/30/17 at 09:00; Stop 06/01/17 at 12:25; Status DC Clonazepam (KlonoPIN) 0.75 mg QHS PO Last administered on 06/03/17 20:10; Start 05/29/17 at 21:00; Stop 06/08/17 at 21:00 Donepezil HCl (Aricept) 10 mg QHS PO Last administered on 06/03/17 20:07; Start 05/31/17 at 21:00 Clonazepam (KlonoPIN) 0.75 mg DAILY PO Last administered on 06/03/17at 07:44; Start 06/02/17 at 09:00; Stop 06/04/17 at 09:00 Clonazepam (KlonoPIN) 0.5 mg DAILY PO ; Start 06/05/17 at 09:00 Clonazepam (KlonoPIN) 0.5 mg HS PO ; Start 06/08/17 at 21:00 Ciprofloxacin (Cipro) 250 mg BID PO Last administered on 06/03/17 20:07; Start 06/01/17 at 21:00; Stop 06/06/17 at 20:59 Gabapentin (Neurontin) 300 mg QID PO Last administered on 06/03/17 20:07; Start 06/02/17 at 04:00; Stop 06/05/17 at 23:00 Gabapentin (Neurontin) 300 mg TID PO ; Start 06/06/17 at 04:00; Stop 06/08/17 at 23:00 Gabapentin (Neurontin) 300 mg BID PO ; Start 06/09/17 at 04:00 Lactobacillus Rhamnosus (Culturelle) 1 cap BID PO Last administered on at 20:06; Start 06/02/17 at 21:00 Nystatin (Mycostatin) 1 missael BID TP ; Start 06/02/17 at 21:00; Stop 06/02/17 at 21: 07; Status DC Nystatin (Mycostatin) 1 missael BID TP ; Start 06/02/17 at 21:00; Stop 06/03/17 at 07 :47; Status DC Nystatin (Nystop) 1 missael BID TP Last administered on 06/03/17at 20:09; Start 02/08 at 09:00 Lamotrigine (LaMICtal) 150 mg HS PO Last administered on 06/03/17at 20:06; Start 06/03/17 at 21:00 Duloxetine HCl (Cymbalta) 60 mg DAILY PO ; Start 06/04/17 at 09:00 Lamotrigine (LaMICtal) 100 mg DAILY PO ; Start 06/04/17 at 09:00 Active Scripts Active Reported Vitamin D3 (Cholecalciferol (Vitamin D3)) 1,000 Unit Tablet 3,000 Unit PO QHS Systane 0.3-0.4% Eye Drops (Propylene Glycol/Peg 400) 15 Ml Drops 1 Drop EACHEYE QID Systane 0.3-0.4% Eye Drops (Propylene Glycol/Peg 400) 15 Ml Drops 1 Drop EACHEYE QIDPRN PRN Pain Reliever Plus Tablet (Aspirin/Acetaminophen/Caffeine) 1 Each Tablet 2 Each PO PRN PRN Ondansetron Hcl 4 Mg Tablet 4 Mg PO PRN Q6HRS PRN Nystatin 100,000 Unit/1 Ml Oral.susp 100,000 Unit PO Nystatin 15 Gm Cream..g. 1 Missael TP PRN BID PRN Miralax (Polyethylene Glycol 3350) 17 Gm Powd.pack 17 Gm PO HS Lidocaine Hcl 5 Ml Jel..ml. 5 Ml TOP PRN Q4HRS Ketoconazole 120 Ml Shampoo 1 Missael TP TWICE WEEKLY Ibuprofen 100 Mg/5 Ml Oral.susp 200 Mg PO PRN TID PRN Hydroxyzine Hcl 25 Mg Tablet 25 Mg PO PRN Q4HRS PRN Hydrocortisone 453.6 Gm Oint...g. 1 Missael TP PRN BID PRN Epa-Dha 720 Softgel ([place]-3/Dha/Epa/Fish Oil) 1 Each Capsule 1 Each PO QHS Donepezil Hcl 5 Mg Tablet 5 Mg PO QHS Saline Nasal [place] (Sodium Chloride) 30 Ml [place] 1 Spr NS PRN PRN Tylenol (Acetaminophen) 325 Mg Tablet 650 Mg PO PRN Q4HRS PRN Seroquel (Quetiapine Fumarate) 400 Mg Tablet 400 Mg PO HS Mirtazapine 15 Mg Tablet 15 Mg PO QHS Lamotrigine 150 Mg Tablet 150 Mg PO BID Fluticasone Propionate Nasal [place] (Fluticasone Propionate) 16 Gm [place].susp 2 [place] NS PRN BID PRN Effexor Xr (Venlafaxine Hcl) 150 Mg Cap.er.24h 150 Mg PO DAILY Multi Vitamin Daily (Multivitamin) 1 Each Tablet 1 Each PO DAILY Mucinex (Guaifenesin) 600 Mg Tablet.er 600 Mg PO PRN BID PRN Namenda (Memantine Hcl) 10 Mg Tablet 5 Mg PO DAILY Gabapentin 600 Mg Tablet 600 Mg PO QID Gabapentin 100 Mg Capsule 100 Mg PO PRN Q6HRS Clonazepam 1 Mg Tablet 1 Mg PO BID I have reviewed the current psychotropics carefully including drug interactions. Risk benefit ratio favors no change other than as noted in my dictated progress note. Diagnosis: Problems: (1) Major depression (2) Anxiety (3) Bipolar affective disorder, mixed (4) Anxiety disorder (5) Major depressive disorder, recurrent episode (6) Impulse control disorder BRIAN CHAPA MD Jun 03, 2017 21:39
[2017-06-04 05:54] VITALS: BP 153/83
[2017-06-04] MEDS: MEMANTINE 5 MG TABLET. PO SCH (07:47)
[2017-06-04] MEDS: LACTOBACILLUS RHAMNOSUS GG 1 CAPSULE. PO SCH ×2 (07:48→20:24)
[2017-06-04] MEDS: CIPROFLOXACIN HCL 250 MG TABLET PO SCH ×2 (07:48→20:24)
[2017-06-04] MEDS: GABAPENTIN 300 MG CAPSULE. PO SCH ×4 (07:48→20:25)
[2017-06-04] MEDS: DULoxetine HCL 60 MG CAPSULE.DR PO SCH (07:52)
[2017-06-04] MEDS: clonazePAM 1 MG TABLET PO SCH (07:52)
[2017-06-04] MEDS: NYSTATIN TOPICAL POWDER 15GM BOTTLE. TP SCH ×2 (07:54→20:27)
[2017-06-04] MEDS ORDERED: lamoTRIgine 100 MG TABLET. PO SCH (09:00)
[2017-06-04] MEDS ORDERED: lamoTRIgine 100 MG TABLET. PO ONE (10:00)
[2017-06-04 16:08] VITALS: BP 131/71
[2017-06-04] MEDS: PRENATAL MULTIVITAMIN TABLET. PO SCH (17:59)
[2017-06-04] MEDS: CHOLECALCIFEROL (VITAMIN D3) 1,000 UNIT TABLET PO SCH (20:24)
[2017-06-04] MEDS: MIRTAZAPINE 15 MG TABLET PO SCH (20:24)
[2017-06-04] MEDS: QUEtiapine 100 MG TABLET. PO SCH (20:24)
[2017-06-04] MEDS: OMEGA-3 FATTY ACIDS/FISH OIL 1,000 MG CAPSULE. PO SCH (20:24)
[2017-06-04] MEDS: DONEPEZIL HCL 10 MG TABLET PO SCH (20:24)
[2017-06-04] MEDS: POLYETHYLENE GLYCOL 3350 17 GM PACKET. PO SCH (20:25)
[2017-06-04] MEDS: lamoTRIgine 100 MG TABLET. PO SCH (20:25)
[2017-06-04] MEDS: clonazePAM 0.5 MG TABLET PO SCH (20:27)
--- NOTE | 2017-06-04 20:44 | PDOC ---
Exam Note: Greg Note: Please also refer to the separate dictated note~for this date of service dictated separately.~Patient seen individually. Discussed the patient with Nursing staff reviewed the chart.~Reviewed interim history and current functioning. Reviewed vital signs,~Labs/ Radiology~and current medications noted below. Continue current treatment with the changes noted in the dictated addendum note Assessment: Vital Signs: Vital Signs Date Time Temp Pulse Resp B/P (MAP) Pulse Ox O2 Delivery O2 Flow Rate FiO2 06/04/17 16:08 98.7 106 20 131/71 (91) 98 06/03/17 16:24 Room Air I&O Intake and Output 06/04/17 07:00 Intake Total 940 ml Balance 940 ml Intake Oral 940 ml Current Medications: Meds: Current Medications Acetaminophen (Tylenol) 650 mg PRN Q6HRS PRN PO PAIN / TEMP; Start 05/19/17 at 16:15; Stop 05/19/17 at 18:42; Status DC Multi-Ingredient Ointment (Analgesic [place]) 1 missael PRN QID PRN TP MUSCLE PAIN; Start 05/19/17 at 16:15 Al Hydroxide/Mg Hydroxide (Mylanta Plus Xs) 15 ml PRN AFTMEALHC PRN PO DYSPEPSIA Last administered on 05/26/17at 20:02; Start 05/19/17 at 16:15 Magnesium Hydroxide (Milk Of Magnesia) 2,400 mg PRN QHS PRN PO CONSTIPATION; Start 05/19/17 at 16:15 Clonazepam (KlonoPIN) 1 mg BID PO Last administered on 05/29/17at 08:45; Start at 21:00; Stop 05/29/17 at 17:47; Status DC Donepezil HCl (Aricept) 5 mg QHS PO Last administered on 05/30/17at 20:24; Start 05/19/17 at 21:00; Stop 05/31/17 at 18:41; Status DC Lamotrigine (LaMICtal) 150 mg BID PO Last administered on 05/20/17at 20:17; Start 05/19/17 at 21:00; Stop 05/20/17 at 20:37; Status DC Memantine (Namenda) 5 mg DAILY PO Last administered on 06/04/17at 07:47; Start 05/20/17 at 09:00 Mirtazapine (Remeron) 15 mg QHS PO Last administered on 06/04/17at 20:24; Start 05/19/17 at 21:00 Quetiapine Fumarate (SEROquel) 400 mg QHS PO Last administered on 05/22/17at 19: 57; Start 05/19/17 at 21:00; Stop 05/23/17 at 18:44; Status DC Venlafaxine HCl (Effexor) 50 mg TID PO Last administered on 05/20/17at 14:00; Start 05/19/17 at 21:00; Stop 05/20/17 at 19:25; Status DC Acetaminophen (Tylenol) 650 mg PRN Q4HRS PRN PO PAIN Last administered on at 05:08; Start 05/19/17 at 18:15 Vitamin D (Vitamin D3) 3,000 unit QHS PO Last administered on 06/04/17at 20:24; Start 05/19/17 at 21:00 Fluticasone Propionate (Flonase) 2 spray PRN BID PRN NS ALLERGIES; Start at 18:15 Gabapentin (Neurontin) 100 mg PRN Q6HRS PRN PO ANXIETY; Start 05/19/17 at 18:15 ; Stop 05/20/17 at 19:25; Status DC Guaifenesin (Mucinex Er) 600 mg PRN BID PRN PO coughing; Start 05/19/17 at 18: 15 Ketoconazole (Nizoral 2% Shampoo) 1 missael QMONFR TP Last administered on at 08:52; Start 05/26/17 at 16:00 Lidocaine HCl (Uro-Jet) 5 missael PRN Q4HRS PRN TP PAIN; Start 05/19/17 at 18:15; Stop 05/19/17 at 20:05; Status DC Nystatin (Mycostatin) 1 missael PRN BID PRN TP itching; Start 05/19/17 at 18:15; Stop 06/02/17 at 11:13; Status DC Polyethylene Glycol (miraLAX) 17 gm HS PO Last administered on 06/04/17at 20:25 ; Start 05/19/17 at 21:00 Gabapentin (Neurontin) 600 mg QID PO Last administered on 05/20/17at 17:21; Start 05/19/17 at 21:00; Stop 05/20/17 at 19:25; Status DC Multivitamins/ Calcium (Thera-M Plus) 1 tab DAILY PO Last administered on at 07:59; Start 05/20/17 at 09:00; Stop 05/21/17 at 14:59; Status DC Fish Oil (Fish Oil) 1,000 mg QHS PO Last administered on 06/04/17at 20:24; Start 05/19/17 at 21:00 Ondansetron HCl (Zofran Odt) 4 mg PRN Q6HRS PRN PO NAUSEA; Start 05/19/17 at 19 :00 Non-Formulary Medication 1 drop QID EACHEYE ; Start 05/19/17 at 21:00; Stop at 21:00; Status DC Artificial Tears (Artificial Tears) 1 drop PRN QID PRN OU DRY EYE; Start at 19:00; Stop 05/20/17 at 14:59; Status DC Lidocaine HCl (Xylocaine 2% Topical 5gm Tube) 1 missael PRN Q4HRS PRN TP PAIN; Start 05/19/17 at 20:15; Stop 05/20/17 at 14:59; Status DC Lidocaine HCl (Xylocaine 2% Topical 5gm Tube) 1 missael PRN Q4HRS PRN TP PAIN Last administered on 05/23/17at 05:41; Start 05/20/17 at 14:59 Artificial Tears (Artificial Tears) 1 drop PRN QID PRN OU DRY EYE Last administered on 05/29/17at 08:44; Start 05/20/17 at 14:59 Gabapentin (Neurontin) 600 mg TID PO Last administered on 06/01/17at 19:24; Start 05/20/17 at 21:00; Stop 06/01/17 at 23:00; Status DC Duloxetine HCl (Cymbalta) 30 mg DAILY PO Last administered on 06/03/17at 07:42; Start 05/21/17 at 09:00; Stop 06/03/17 at 18:33; Status DC Lamotrigine (LaMICtal) 150 mg DAILY PO Last administered on 05/29/17at 08:40; Start 05/21/17 at 09:00; Stop 05/29/17 at 17:46; Status DC Lamotrigine (LaMICtal) 200 mg HS PO Last administered on 05/28/17at 19:45; Start 05/20/17 at 21:00; Stop 05/29/17 at 17:46; Status DC Prenat Multivit/ [place]/Iron/Folic Ac (Multivitamin ) 1 tab DAILYBFRSUP PO Last administered on 06/04/17at 17:59; Start 05/21/17 at 17:00 Fosfomycin Tromethamine (Monurol) 3 gm 1X ONCE PO Last administered on at 15:00; Start 05/21/17 at 15:00; Stop 05/21/17 at 15:01; Status DC Quetiapine Fumarate (SEROquel) 300 mg QHS PO Last administered on 05/25/17 20: 28; Start 05/23/17 at 21:00; Stop 05/26/17 at 17:47; Status DC Nystatin (Nystop) 15 missael STK-MED ONCE TP Last administered on 05/24/17at 17:40; Start 05/24/17 at 17:40; Stop 05/24/17 at 17:41; Status DC Sodium Chloride (Saline Mist Nasal) 1 missael PRN Q1HR PRN NS NASAL CONGESTION Last administered on 05/27/17 20:38; Start 05/25/17 at 09:15 Quetiapine Fumarate (SEROquel) 200 mg QHS PO Last administered on 06/04/17 20: 24; Start 05/26/17 at 21:00 Ketorolac Tromethamine (Acular) 1 drop Q8HRS OD Last administered on 06/03/17 06:23; Start 05/29/17 at 14:00; Stop 06/03/17 at 13:59; Status DC Lamotrigine (LaMICtal) 200 mg BID PO Last administered on 06/03/17 07:42; Start 05/29/17 at 21:00; Stop 06/03/17 at 18:33; Status DC Clonazepam (KlonoPIN) 1 mg DAILY PO Last administered on 06/01/17 08:07; Start 05/30/17 at 09:00; Stop 06/01/17 at 12:25; Status DC Clonazepam (KlonoPIN) 0.75 mg QHS PO Last administered on 06/04/17 20:27; Start 05/29/17 at 21:00; Stop 06/08/17 at 21:00 Donepezil HCl (Aricept) 10 mg QHS PO Last administered on 06/04/17 20:24; Start 05/31/17 at 21:00 Clonazepam (KlonoPIN) 0.75 mg DAILY PO Last administered on 06/04/17at 07:52; Start 06/02/17 at 09:00; Stop 06/04/17 at 09:01; Status DC Clonazepam (KlonoPIN) 0.5 mg DAILY PO ; Start 06/05/17 at 09:00 Clonazepam (KlonoPIN) 0.5 mg HS PO ; Start 06/08/17 at 21:00 Ciprofloxacin (Cipro) 250 mg BID PO Last administered on 06/04/17at 20:24; Start 06/01/17 at 21:00; Stop 06/06/17 at 20:59 Gabapentin (Neurontin) 300 mg QID PO Last administered on 06/04/17 20:25; Start 06/02/17 at 04:00; Stop 06/05/17 at 23:00 Gabapentin (Neurontin) 300 mg TID PO ; Start 06/06/17 at 04:00; Stop 06/08/17 at 23:00 Gabapentin (Neurontin) 300 mg BID PO ; Start 06/09/17 at 04:00 Lactobacillus Rhamnosus (Culturelle) 1 cap BID PO Last administered on 20:24; Start 06/02/17 at 21:00 Nystatin (Mycostatin) 1 missael BID TP ; Start 06/02/17 at 21:00; Stop 06/02/17 at 21: 07; Status DC Nystatin (Mycostatin) 1 missael BID TP ; Start 06/02/17 at 21:00; Stop 06/03/17 at 07 :47; Status DC Nystatin (Nystop) 1 missael BID TP Last administered on 06/04/17at 20:27; Start 02/08 at 09:00 Lamotrigine (LaMICtal) 150 mg HS PO Last administered on 06/04/17 20:25; Start 06/03/17 at 21:00; Stop 06/05/17 at 23:59 Duloxetine HCl (Cymbalta) 60 mg DAILY PO Last administered on 06/04/17at 07:52; Start 06/04/17 at 09:00 Lamotrigine (LaMICtal) 100 mg DAILY PO Last administered on 06/04/17at 07:54; Start 06/04/17 at 09:00; Stop 06/04/17 at 09:50; Status DC Lamotrigine (LaMICtal) 200 mg DAILY PO ; Start 06/05/17 at 09:00 Lamotrigine (LaMICtal) 200 mg HS PO ; Start 06/06/17 at 21:00 Lamotrigine (LaMICtal) 100 mg 1X ONCE PO Last administered on 06/04/17at 10:00 ; Start 06/04/17 at 10:00; Stop 06/04/17 at 10:01; Status DC Active Scripts Active Reported Vitamin D3 (Cholecalciferol (Vitamin D3)) 1,000 Unit Tablet 3,000 Unit PO QHS Systane 0.3-0.4% Eye Drops (Propylene Glycol/Peg 400) 15 Ml Drops 1 Drop EACHEYE QID Systane 0.3-0.4% Eye Drops (Propylene Glycol/Peg 400) 15 Ml Drops 1 Drop EACHEYE QIDPRN PRN Pain Reliever Plus Tablet (Aspirin/Acetaminophen/Caffeine) 1 Each Tablet 2 Each PO PRN PRN Ondansetron Hcl 4 Mg Tablet 4 Mg PO PRN Q6HRS PRN Nystatin 100,000 Unit/1 Ml Oral.susp 100,000 Unit PO Nystatin 15 Gm Cream..g. 1 Missael TP PRN BID PRN Miralax (Polyethylene Glycol 3350) 17 Gm Powd.pack 17 Gm PO HS Lidocaine Hcl 5 Ml Jel..ml. 5 Ml TOP PRN Q4HRS Ketoconazole 120 Ml Shampoo 1 Missael TP TWICE WEEKLY Ibuprofen 100 Mg/5 Ml Oral.susp 200 Mg PO PRN TID PRN Hydroxyzine Hcl 25 Mg Tablet 25 Mg PO PRN Q4HRS PRN Hydrocortisone 453.6 Gm Oint...g. 1 [place] TP PRN BID PRN Epa-Dha 720 Softgel ([place]-3/Dha/Epa/Fish Oil) 1 Each Capsule 1 Each PO QHS Donepezil Hcl 5 Mg Tablet 5 Mg PO QHS Saline Nasal [place] (Sodium Chloride) 30 Ml [place] 1 Spr NS PRN PRN Tylenol (Acetaminophen) 325 Mg Tablet 650 Mg PO PRN Q4HRS PRN Seroquel (Quetiapine Fumarate) 400 Mg Tablet 400 Mg PO HS Mirtazapine 15 Mg Tablet 15 Mg PO QHS Lamotrigine 150 Mg Tablet 150 Mg PO BID Fluticasone Propionate Nasal [place] (Fluticasone Propionate) 16 Gm [place].susp 2 [place] NS PRN BID PRN Effexor Xr (Venlafaxine Hcl) 150 Mg Cap.er.24h 150 Mg PO DAILY Multi Vitamin Daily (Multivitamin) 1 Each Tablet 1 Each PO DAILY Mucinex (Guaifenesin) 600 Mg Tablet.er 600 Mg PO PRN BID PRN Namenda (Memantine Hcl) 10 Mg Tablet 5 Mg PO DAILY Gabapentin 600 Mg Tablet 600 Mg PO QID Gabapentin 100 Mg Capsule 100 Mg PO PRN Q6HRS Clonazepam 1 Mg Tablet 1 Mg PO BID I have reviewed the current psychotropics carefully including drug interactions. Risk benefit ratio favors no change other than as noted in my dictated progress note. Diagnosis: Problems: (1) Major depression (2) Anxiety (3) Bipolar affective disorder, mixed (4) Anxiety disorder (5) Major depressive disorder, recurrent episode (6) Impulse control disorder BRIAN CHAPA MD Jun 04, 2017 20:44
--- NOTE | 2017-06-05 05:35 | PN ---
DATE: 06/02/2017 PSYCHIATRIC PROGRESS NOTE This is a late entry 06/02/2017, covers elements not covered in my initial note 06/02/2017. SUBJECTIVE: I met with the patient the evening of 06/02/2017. The patient appears somewhat depressed, helpless, put herself on the floor what she is doing. The patient does have a UTI and is on Cipro and this could contribute to some of this ongoing mood lability, depression. REVIEW OF SYSTEMS: Ambulation impaired. No CV, , pulmonary, eye, ENT system symptoms on review. MENTAL STATUS EXAM: Oriented to herself and situation. Speech has moderate latency, often responses monosyllabic. Abstraction fair, computation somewhat impaired, language function intact. Mood and affect somewhat dysphoric. LABORATORY DATA: Reviewed. No suicidal or homicidal ideation. IMPRESSION: Bipolar 1 disorder depressed versus bipolar 2 disorder depressed, urinary tract infection. Rest unchanged. Significant past history of ECT treatment. PLAN: Klonopin is being tapered. We have requested a CT head if not done in the recent past. Maintain rest of the psychotropics unchanged. MAN Vidal CHAPA MD DR: ANTONIO/gianfranco JOB#: [id number] / [id number]
--- NOTE | 2017-06-05 05:59 | PN ---
DATE: 06/03/2017 PSYCHIATRIC PROGRESS NOTE This is a late entry of 06/03/2017 covers elements not covered in my initial note of 06/03/2017. I met with the patient in the evening of 06/03/2017. SUBJECTIVE: The patient has done reasonably during the day, but was crying, tearful, appeared more confused after her sister left following the visit. Slept 7-3/4 hours previous evening. REVIEW OF SYSTEMS: Ambulation impaired, in wheelchair. No CV, , pulmonary, eye system symptoms on review. MENTAL STATUS EXAM: Oriented to herself and situation. Speech is coherent, was tearful as I met with her, labile, though nursing staff had not observed that earlier in the day. Abstraction fair, computation impaired, language function intact, attention span short. Mood and affect, somewhat depressed. LABORATORY DATA: Reviewed. IMPRESSION: Bipolar 2 disorder, depressed versus bipolar 1 disorder, depressed, cognitive disorder, unspecified. PLAN: We carefully reviewed her Lamictal dosage for appropriateness. She came in on 150 b.i.d., was slowly increased to 200 mg b.i.d., but some of this increase was unclear. We decided to initially drop it down to 100 in the morning and 150 at night and after further review on 06/04/2017, we will increase it to a total of 350 mg a day as the admission dosage was 300 mg a day and then back to 400 mg a day. Cymbalta will be increased to 60 mg a day for mood symptoms. Continue rest unchanged. Consider Abilify in place of Seroquel to augment the antidepressant. BRIAN CHAPA MD DR: ANTONIO/gianfranco JOB#: [id number] / [id number]
[2017-06-05 06:08] VITALS: BP 112/56
[2017-06-05 08:00] VITALS: BP 134/75
[2017-06-05] MEDS: MEMANTINE 5 MG TABLET. PO SCH (08:05)
[2017-06-05] MEDS: GABAPENTIN 300 MG CAPSULE. PO SCH ×4 (08:05→19:42)
[2017-06-05] MEDS: clonazePAM 0.5 MG TABLET PO SCH ×2 (08:05→19:44)
[2017-06-05] MEDS: LACTOBACILLUS RHAMNOSUS GG 1 CAPSULE. PO SCH ×2 (08:05→19:42)
[2017-06-05] MEDS: lamoTRIgine 100 MG TABLET. PO SCH ×2 (08:05→19:40)
[2017-06-05] MEDS: DULoxetine HCL 60 MG CAPSULE.DR PO SCH (08:05)
[2017-06-05] MEDS: CIPROFLOXACIN HCL 250 MG TABLET PO SCH ×2 (08:05→19:40)
[2017-06-05] MEDS: NYSTATIN TOPICAL POWDER 15GM BOTTLE. TP SCH ×2 (08:06→21:00)
[2017-06-05] MEDS: ACETAMINOPHEN 325 MG TABLET PO PRN (08:06)
[2017-06-05] MEDS: PRENATAL MULTIVITAMIN TABLET. PO SCH (08:06)
[2017-06-05] MEDS: KETOCONAZOLE 2% SHAMPOO 120ML BOTTLE. TP SCH (08:07)
[2017-06-05 09:43] LABS: BASO % 1 % (0-3); EOS # 0.1 x10^3/uL (0.0-0.7); EOS % 3 % (0-3); HEMATOCRIT 37.1 % (36.0-47.0); HEMOGLOBIN 12.2 g/dL (12.0-15.5); LYMPH # 0.9 x10^3/uL (1.0-4.8); LYMPH % 16 % (24-48); MEAN CORPUSCULAR HEMOGLOBIN 27 pg (25-35); MEAN CORPUSCULAR HGB CONC 33 g/dL (31-37); MEAN CORPUSCULAR VOLUME 83 fL (79-100); MONO # 0.4 x10^3/uL (0.0-1.1); MONO % 7 % (0-9); NEUT # 3.9 x10^3uL (1.8-7.7); NEUT % 73 % (31-73); PLATELET COUNT 294 x10^3/uL (140-400); RED BLOOD COUNT 4.45 x10^6/uL (3.50-5.40); RED CELL DISTRIBUTION WIDTH 16.5 % (11.5-14.5); WHITE BLOOD COUNT 5.3 x10^3/uL (4.0-11.0)
[2017-06-05 09:55] LABS: ALBUMIN 3.2 g/dL (3.4-5.0); ALBUMIN/GLOBULIN RATIO 0.9 (1.0-1.7); CALCIUM 9.7 mg/dL (8.5-10.1); CREATININE 1.3 mg/dL (0.6-1.0); GFR 40.2; POTASSIUM 4.3 mmol/L (3.5-5.1); TOTAL BILIRUBIN 0.2 mg/dL (0.2-1.0); TOTAL PROTEIN 6.7 g/dL (6.4-8.2)
[2017-06-05 16:33] VITALS: BP 132/69
[2017-06-05] MEDS: POLYETHYLENE GLYCOL 3350 17 GM PACKET. PO SCH (19:39)
[2017-06-05] MEDS: CHOLECALCIFEROL (VITAMIN D3) 1,000 UNIT TABLET PO SCH (19:40)
[2017-06-05] MEDS: OMEGA-3 FATTY ACIDS/FISH OIL 1,000 MG CAPSULE. PO SCH (19:40)
[2017-06-05] MEDS: DONEPEZIL HCL 10 MG TABLET PO SCH (19:41)
[2017-06-05] MEDS: MIRTAZAPINE 15 MG TABLET PO SCH (19:41)
[2017-06-05] MEDS: QUEtiapine 100 MG TABLET. PO SCH (19:42)
--- NOTE | 2017-06-05 22:40 | PDOC ---
Exam Note: Greg Note: Please also refer to the separate dictated note~for this date of service dictated separately.~Patient seen individually. Discussed the patient with Nursing staff reviewed the chart.~Reviewed interim history and current functioning. Reviewed vital signs,~Labs/ Radiology~and current medications noted below. Continue current treatment with the changes noted in the dictated addendum note Assessment: Vital Signs: Vital Signs Date Time Temp Pulse Resp B/P (MAP) Pulse Ox O2 Delivery O2 Flow Rate FiO2 06/05/17 16:33 98.1 98 18 132/69 (90) 98 06/03/17 16:24 Room Air I&O Intake and Output 06/05/17 07:00 Intake Total 840 ml Balance 840 ml Intake Oral 840 ml # Bowel Movements 2 Labs: Laboratory Tests Test 06/05/17 09:20 White Blood Count 5.3 x10^3/uL (4.0-11.0) Red Blood Count 4.45 x10^6/uL (3.50-5.40) Hemoglobin 12.2 g/dL (12.0-15.5) Hematocrit 37.1 % (36.0-47.0) Mean Corpuscular Volume 83 fL (79-100) Mean Corpuscular Hemoglobin 27 pg (25-35) Mean Corpuscular Hemoglobin Concent 33 g/dL (31-37) Red Cell Distribution Width 16.5 % (11.5-14.5) H Platelet Count 294 x10^3/uL (140-400) Neutrophils (%) (Auto) 73 % (31-73) Lymphocytes (%) (Auto) 16 % (24-48) L Monocytes (%) (Auto) 7 % (0-9) Eosinophils (%) (Auto) 3 % (0-3) Basophils (%) (Auto) 1 % (0-3) Neutrophils # (Auto) 3.9 x10^3uL (1.8-7.7) Lymphocytes # (Auto) 0.9 x10^3/uL (1.0-4.8) L Monocytes # (Auto) 0.4 x10^3/uL (0.0-1.1) Eosinophils # (Auto) 0.1 x10^3/uL (0.0-0.7) Basophils # (Auto) 0.0 x10^3/uL (0.0-0.2) Sodium Level 143 mmol/L (136-145) Potassium Level 4.3 mmol/L (3.5-5.1) Chloride Level 105 mmol/L (98-107) Carbon Dioxide Level 27 mmol/L (21-32) Anion Gap 11 (6-14) Blood Urea Nitrogen 18 mg/dL (7-20) Creatinine 1.3 mg/dL (0.6-1.0) H Estimated GFR (Cockcroft-Gault) 40.2 BUN/Creatinine Ratio 14 (6-20) Glucose Level 118 mg/dL (70-99) H Calcium Level 9.7 mg/dL (8.5-10.1) Total Bilirubin 0.2 mg/dL (0.2-1.0) Aspartate Amino Transferase (AST) 34 U/L (15-37) Alanine Aminotransferase (ALT) 25 U/L (14-59) Alkaline Phosphatase 106 U/L (46-116) Total Protein 6.7 g/dL (6.4-8.2) Albumin 3.2 g/dL (3.4-5.0) L Albumin/Globulin Ratio 0.9 (1.0-1.7) L Current Medications: Meds: Current Medications Acetaminophen (Tylenol) 650 mg PRN Q6HRS PRN PO PAIN / TEMP; Start 05/19/17 at 16:15; Stop 05/19/17 at 18:42; Status DC Multi-Ingredient Ointment (Analgesic Edroy) 1 missael PRN QID PRN TP MUSCLE PAIN; Start 05/19/17 at 16:15 Al Hydroxide/Mg Hydroxide (Mylanta Plus Xs) 15 ml PRN AFTMEALHC PRN PO DYSPEPSIA Last administered on 05/26/17at 20:02; Start 05/19/17 at 16:15 Magnesium Hydroxide (Milk Of Magnesia) 2,400 mg PRN QHS PRN PO CONSTIPATION; Start 05/19/17 at 16:15 Clonazepam (KlonoPIN) 1 mg BID PO Last administered on 05/29/17at 08:45; Start at 21:00; Stop 05/29/17 at 17:47; Status DC Donepezil HCl (Aricept) 5 mg QHS PO Last administered on 05/30/17at 20:24; Start 05/19/17 at 21:00; Stop 05/31/17 at 18:41; Status DC Lamotrigine (LaMICtal) 150 mg BID PO Last administered on 05/20/17at 20:17; Start 05/19/17 at 21:00; Stop 05/20/17 at 20:37; Status DC Memantine (Namenda) 5 mg DAILY PO Last administered on 06/05/17at 08:05; Start 05/20/17 at 09:00 Mirtazapine (Remeron) 15 mg QHS PO Last administered on 06/05/17at 19:41; Start 05/19/17 at 21:00 Quetiapine Fumarate (SEROquel) 400 mg QHS PO Last administered on 05/22/17at 19: 57; Start 05/19/17 at 21:00; Stop 05/23/17 at 18:44; Status DC Venlafaxine HCl (Effexor) 50 mg TID PO Last administered on 05/20/17at 14:00; Start 05/19/17 at 21:00; Stop 05/20/17 at 19:25; Status DC Acetaminophen (Tylenol) 650 mg PRN Q4HRS PRN PO PAIN Last administered on at 08:06; Start 05/19/17 at 18:15 Vitamin D (Vitamin D3) 3,000 unit QHS PO Last administered on 06/05/17at 19:40; Start 05/19/17 at 21:00 Fluticasone Propionate (Flonase) 2 spray PRN BID PRN NS ALLERGIES; Start at 18:15 Gabapentin (Neurontin) 100 mg PRN Q6HRS PRN PO ANXIETY; Start 05/19/17 at 18:15 ; Stop 05/20/17 at 19:25; Status DC Guaifenesin (Mucinex Er) 600 mg PRN BID PRN PO coughing; Start 05/19/17 at 18: 15 Ketoconazole (Nizoral 2% Shampoo) 1 missael QMONFR TP Last administered on at 08:07; Start 05/26/17 at 16:00 Lidocaine HCl (Uro-Jet) 5 missael PRN Q4HRS PRN TP PAIN; Start 05/19/17 at 18:15; Stop 05/19/17 at 20:05; Status DC Nystatin (Mycostatin) 1 missael PRN BID PRN TP itching; Start 05/19/17 at 18:15; Stop 06/02/17 at 11:13; Status DC Polyethylene Glycol (miraLAX) 17 gm HS PO Last administered on 06/05/17at 19:39 ; Start 05/19/17 at 21:00 Gabapentin (Neurontin) 600 mg QID PO Last administered on 05/20/17at 17:21; Start 05/19/17 at 21:00; Stop 05/20/17 at 19:25; Status DC Multivitamins/ Calcium (Thera-M Plus) 1 tab DAILY PO Last administered on at 07:59; Start 05/20/17 at 09:00; Stop 05/21/17 at 14:59; Status DC Fish Oil (Fish Oil) 1,000 mg QHS PO Last administered on 06/05/17at 19:40; Start 05/19/17 at 21:00 Ondansetron HCl (Zofran Odt) 4 mg PRN Q6HRS PRN PO NAUSEA; Start 05/19/17 at 19 :00 Non-Formulary Medication 1 drop QID EACHEYE ; Start 05/19/17 at 21:00; Stop at 21:00; Status DC Artificial Tears (Artificial Tears) 1 drop PRN QID PRN OU DRY EYE; Start at 19:00; Stop 05/20/17 at 14:59; Status DC Lidocaine HCl (Xylocaine 2% Topical 5gm Tube) 1 missael PRN Q4HRS PRN TP PAIN; Start 05/19/17 at 20:15; Stop 05/20/17 at 14:59; Status DC Lidocaine HCl (Xylocaine 2% Topical 5gm Tube) 1 missael PRN Q4HRS PRN TP PAIN Last administered on 05/23/17at 05:41; Start 05/20/17 at 14:59 Artificial Tears (Artificial Tears) 1 drop PRN QID PRN OU DRY EYE Last administered on 05/29/17at 08:44; Start 05/20/17 at 14:59 Gabapentin (Neurontin) 600 mg TID PO Last administered on 06/01/17at 19:24; Start 05/20/17 at 21:00; Stop 06/01/17 at 23:00; Status DC Duloxetine HCl (Cymbalta) 30 mg DAILY PO Last administered on 06/03/17at 07:42; Start 05/21/17 at 09:00; Stop 06/03/17 at 18:33; Status DC Lamotrigine (LaMICtal) 150 mg DAILY PO Last administered on 05/29/17at 08:40; Start 05/21/17 at 09:00; Stop 05/29/17 at 17:46; Status DC Lamotrigine (LaMICtal) 200 mg HS PO Last administered on 05/28/17at 19:45; Start 05/20/17 at 21:00; Stop 05/29/17 at 17:46; Status DC Prenat Multivit/ [place]/Iron/Folic Ac (Multivitamin ) 1 tab DAILYBFRSUP PO Last administered on 06/05/17at 08:06; Start 05/21/17 at 17:00 Fosfomycin Tromethamine (Monurol) 3 gm 1X ONCE PO Last administered on at 15:00; Start 05/21/17 at 15:00; Stop 05/21/17 at 15:01; Status DC Quetiapine Fumarate (SEROquel) 300 mg QHS PO Last administered on 05/25/17at 20: 28; Start 05/23/17 at 21:00; Stop 05/26/17 at 17:47; Status DC Nystatin (Nystop) 15 missael STK-MED ONCE TP Last administered on 05/24/17at 17:40; Start 05/24/17 at 17:40; Stop 05/24/17 at 17:41; Status DC Sodium Chloride (Saline Mist Nasal) 1 missael PRN Q1HR PRN NS NASAL CONGESTION Last administered on 05/27/17 20:38; Start 05/25/17 at 09:15 Quetiapine Fumarate (SEROquel) 200 mg QHS PO Last administered on 06/04/17at 20: 24; Start 05/26/17 at 21:00; Stop 06/05/17 at 17:39; Status DC Ketorolac Tromethamine (Acular) 1 drop Q8HRS OD Last administered on 06/03/17at 06:23; Start 05/29/17 at 14:00; Stop 06/03/17 at 13:59; Status DC Lamotrigine (LaMICtal) 200 mg BID PO Last administered on 06/03/17at 07:42; Start 05/29/17 at 21:00; Stop 06/03/17 at 18:33; Status DC Clonazepam (KlonoPIN) 1 mg DAILY PO Last administered on 06/01/17at 08:07; Start 05/30/17 at 09:00; Stop 06/01/17 at 12:25; Status DC Clonazepam (KlonoPIN) 0.75 mg QHS PO Last administered on 06/05/17at 19:44; Start 05/29/17 at 21:00; Stop 06/08/17 at 21:00 Donepezil HCl (Aricept) 10 mg QHS PO Last administered on 06/05/17at 19:41; Start 05/31/17 at 21:00 Clonazepam (KlonoPIN) 0.75 mg DAILY PO Last administered on 06/04/17at 07:52; Start 06/02/17 at 09:00; Stop 06/04/17 at 09:01; Status DC Clonazepam (KlonoPIN) 0.5 mg DAILY PO Last administered on 06/05/17at 08:05; Start 06/05/17 at 09:00 Clonazepam (KlonoPIN) 0.5 mg HS PO ; Start 06/08/17 at 21:00 Ciprofloxacin (Cipro) 250 mg BID PO Last administered on 06/05/17at 19:40; Start 06/01/17 at 21:00; Stop 06/06/17 at 20:59 Gabapentin (Neurontin) 300 mg QID PO Last administered on 06/05/17at 19:42; Start 06/02/17 at 04:00; Stop 06/05/17 at 23:00 Gabapentin (Neurontin) 300 mg TID PO ; Start 06/06/17 at 04:00; Stop 06/08/17 at 23:00 Gabapentin (Neurontin) 300 mg BID PO ; Start 06/09/17 at 04:00 Lactobacillus Rhamnosus (Culturelle) 1 cap BID PO Last administered on at 19:42; Start 06/02/17 at 21:00 Nystatin (Mycostatin) 1 missael BID TP ; Start 06/02/17 at 21:00; Stop 06/02/17 at 21: 07; Status DC Nystatin (Mycostatin) 1 missael BID TP ; Start 06/02/17 at 21:00; Stop 06/03/17 at 07 :47; Status DC Nystatin (Nystop) 1 missael BID TP Last administered on 06/05/17at 08:06; Start 02/08 at 09:00 Lamotrigine (LaMICtal) 150 mg HS PO Last administered on 06/05/17at 19:40; Start 06/03/17 at 21:00; Stop 06/05/17 at 23:59 Duloxetine HCl (Cymbalta) 60 mg DAILY PO Last administered on 06/05/17at 08:05; Start 06/04/17 at 09:00 Lamotrigine (LaMICtal) 100 mg DAILY PO Last administered on 06/04/17at 07:54; Start 06/04/17 at 09:00; Stop 06/04/17 at 09:50; Status DC Lamotrigine (LaMICtal) 200 mg DAILY PO Last administered on 06/05/17at 08:05; Start 06/05/17 at 09:00 Lamotrigine (LaMICtal) 200 mg HS PO ; Start 06/06/17 at 21:00 Lamotrigine (LaMICtal) 100 mg 1X ONCE PO Last administered on 06/04/17at 10:00 ; Start 06/04/17 at 10:00; Stop 06/04/17 at 10:01; Status DC Quetiapine Fumarate (SEROquel) 250 mg QHS PO Last administered on 06/05/17at 19: 42; Start 06/05/17 at 21:00 Active Scripts Active Reported Vitamin D3 (Cholecalciferol (Vitamin D3)) 1,000 Unit Tablet 3,000 Unit PO QHS Systane 0.3-0.4% Eye Drops (Propylene Glycol/Peg 400) 15 Ml Drops 1 Drop EACHEYE QID Systane 0.3-0.4% Eye Drops (Propylene Glycol/Peg 400) 15 Ml Drops 1 Drop EACHEYE QIDPRN PRN Pain Reliever Plus Tablet (Aspirin/Acetaminophen/Caffeine) 1 Each Tablet 2 Each PO PRN PRN Ondansetron Hcl 4 Mg Tablet 4 Mg PO PRN Q6HRS PRN Nystatin 100,000 Unit/1 Ml Oral.susp 100,000 Unit PO Nystatin 15 Gm Cream..g. 1 Missael TP PRN BID PRN Miralax (Polyethylene Glycol 3350) 17 Gm Powd.pack 17 Gm PO HS Lidocaine Hcl 5 Ml Jel..ml. 5 Ml TOP PRN Q4HRS Ketoconazole 120 Ml Shampoo 1 Missael TP TWICE WEEKLY Ibuprofen 100 Mg/5 Ml Oral.susp 200 Mg PO PRN TID PRN Hydroxyzine Hcl 25 Mg Tablet 25 Mg PO PRN Q4HRS PRN Hydrocortisone 453.6 Gm Oint...g. 1 Missael TP PRN BID PRN Epa-Dha 720 Softgel ([place]-3/Dha/Epa/Fish Oil) 1 Each Capsule 1 Each PO QHS Donepezil Hcl 5 Mg Tablet 5 Mg PO QHS Saline Nasal [place] (Sodium Chloride) 30 Ml [place] 1 Spr NS PRN PRN Tylenol (Acetaminophen) 325 Mg Tablet 650 Mg PO PRN Q4HRS PRN Seroquel (Quetiapine Fumarate) 400 Mg Tablet 400 Mg PO HS Mirtazapine 15 Mg Tablet 15 Mg PO QHS Lamotrigine 150 Mg Tablet 150 Mg PO BID Fluticasone Propionate Nasal [place] (Fluticasone Propionate) 16 Gm [place].susp 2 [place] NS PRN BID PRN Effexor Xr (Venlafaxine Hcl) 150 Mg Cap.er.24h 150 Mg PO DAILY Multi Vitamin Daily (Multivitamin) 1 Each Tablet 1 Each PO DAILY Mucinex (Guaifenesin) 600 Mg Tablet.er 600 Mg PO PRN BID PRN Namenda (Memantine Hcl) 10 Mg Tablet 5 Mg PO DAILY Gabapentin 600 Mg Tablet 600 Mg PO QID Gabapentin 100 Mg Capsule 100 Mg PO PRN Q6HRS Clonazepam 1 Mg Tablet 1 Mg PO BID I have reviewed the current psychotropics carefully including drug interactions. Risk benefit ratio favors no change other than as noted in my dictated progress note. Diagnosis: Problems: (1) Major depression (2) Anxiety (3) Bipolar affective disorder, mixed (4) Anxiety disorder (5) Major depressive disorder, recurrent episode (6) Impulse control disorder BRIAN CHAPA MD Jun 05, 2017 22:40
[2017-06-06] MEDS: GABAPENTIN 300 MG CAPSULE. PO SCH ×4 (04:33→20:22)
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
[2017-06-06 06:45] VITALS: BP 136/69
[2017-06-06] MEDS: LACTOBACILLUS RHAMNOSUS GG 1 CAPSULE. PO SCH ×2 (08:19→20:22)
[2017-06-06] MEDS: CIPROFLOXACIN HCL 250 MG TABLET PO SCH (08:20)
[2017-06-06] MEDS: DULoxetine HCL 60 MG CAPSULE.DR PO SCH (08:20)
[2017-06-06] MEDS: lamoTRIgine 100 MG TABLET. PO SCH ×2 (08:20→20:39)
[2017-06-06] MEDS: MEMANTINE 5 MG TABLET. PO SCH (08:20)
[2017-06-06] MEDS: clonazePAM 0.5 MG TABLET PO SCH ×2 (08:21→20:39)
[2017-06-06] MEDS: NYSTATIN TOPICAL POWDER 15GM BOTTLE. TP SCH (09:00)
[2017-06-06] MEDS: PRENATAL MULTIVITAMIN TABLET. PO SCH (14:02)
[2017-06-06 16:04] VITALS: BP 113/67
[2017-06-06] MEDS: QUEtiapine 100 MG TABLET. PO SCH (20:20)
[2017-06-06] MEDS: CHOLECALCIFEROL (VITAMIN D3) 1,000 UNIT TABLET PO SCH (20:22)
[2017-06-06] MEDS: DONEPEZIL HCL 10 MG TABLET PO SCH (20:22)
[2017-06-06] MEDS: OMEGA-3 FATTY ACIDS/FISH OIL 1,000 MG CAPSULE. PO SCH (20:36)
[2017-06-06] MEDS: POLYETHYLENE GLYCOL 3350 17 GM PACKET. PO SCH (20:36)
[2017-06-06] MEDS: MIRTAZAPINE 15 MG TABLET PO SCH (20:36)
--- NOTE | 2017-06-06 23:58 | PN ---
DATE: 06/05/2017 This late entry 06/05/2017 covers elements not covered in my initial note 06/05/2017. Met with the patient evening of 06/05/2017. The patient has crawled herself out of bed on one occasion. No injuries noted and when questioned by nursing staff, she responded "because I wanted to." Less paranoid, suspicious, as I met with her. REVIEW OF SYSTEMS: Ambulation impaired, in wheelchair. No CV, , pulmonary, eye system symptoms on review. MENTAL STATUS EXAM: Reasonably oriented. Speech is coherent, has some latency. Abstraction fair, computation impaired, language function intact. Mood and affect showing some improvement. LABORATORY DATA: Reviewed. IMPRESSION: Bipolar 1 disorder, depressed, anxiety disorder, unspecified. PLAN: Continue current psychotropics mentioned in my initial note. MAN Vidal CHAPA MD DR: ANTONIO/gianfranco JOB#: [id number] / [id number]
[2017-06-07] MEDS: NYSTATIN TOPICAL POWDER 15GM BOTTLE. TP SCH ×2 (05:38→09:10)
[2017-06-07 06:30] VITALS: BP 126/66
[2017-06-07] MEDS: MEMANTINE 5 MG TABLET. PO SCH (09:02)
[2017-06-07] MEDS: DULoxetine HCL 60 MG CAPSULE.DR PO SCH (09:02)
[2017-06-07] MEDS: GABAPENTIN 300 MG CAPSULE. PO SCH ×3 (09:02→19:39)
[2017-06-07] MEDS: LACTOBACILLUS RHAMNOSUS GG 1 CAPSULE. PO SCH ×2 (09:02→19:38)
[2017-06-07] MEDS: lamoTRIgine 100 MG TABLET. PO SCH ×2 (09:02→19:38)
[2017-06-07] MEDS: clonazePAM 0.5 MG TABLET PO SCH ×2 (09:06→19:56)
[2017-06-07 16:51] VITALS: BP 120/78
[2017-06-07] MEDS: PRENATAL MULTIVITAMIN TABLET. PO SCH (16:57)
--- NOTE | 2017-06-07 19:01 | PDOC ---
Exam Note: Greg Note: This is late entry for 06.06.2017. Please also refer to the separate dictated note~for this date of service dictated separately.~Patient seen individually. Discussed the patient with Nursing staff reviewed the chart.~Reviewed interim history and current functioning. Reviewed vital signs,~Labs/ Radiology~and current medications noted below. Continue current treatment with the changes noted in the dictated addendum note Assessment: Vital Signs: Vital Signs Date Time Temp Pulse Resp B/P (MAP) Pulse Ox O2 Delivery O2 Flow Rate FiO2 06/07/17 16:51 98.1 109 16 120/78 (92) 96 06/07/17 06:30 Room Air I&O Intake and Output 06/07/17 07:00 Intake Total 600 ml Balance 600 ml Intake Oral 600 ml # Bowel Movements 2 Current Medications: Meds: Current Medications Acetaminophen (Tylenol) 650 mg PRN Q6HRS PRN PO PAIN / TEMP; Start 05/19/17 at 16:15; Stop 05/19/17 at 18:42; Status DC Multi-Ingredient Ointment (Analgesic [place]) 1 missael PRN QID PRN TP MUSCLE PAIN; Start 05/19/17 at 16:15 Al Hydroxide/Mg Hydroxide (Mylanta Plus Xs) 15 ml PRN AFTMEALHC PRN PO DYSPEPSIA Last administered on 05/26/17at 20:02; Start 05/19/17 at 16:15 Magnesium Hydroxide (Milk Of Magnesia) 2,400 mg PRN QHS PRN PO CONSTIPATION; Start 05/19/17 at 16:15 Clonazepam (KlonoPIN) 1 mg BID PO Last administered on 05/29/17at 08:45; Start at 21:00; Stop 05/29/17 at 17:47; Status DC Donepezil HCl (Aricept) 5 mg QHS PO Last administered on 05/30/17at 20:24; Start 05/19/17 at 21:00; Stop 05/31/17 at 18:41; Status DC Lamotrigine (LaMICtal) 150 mg BID PO Last administered on 05/20/17at 20:17; Start 05/19/17 at 21:00; Stop 05/20/17 at 20:37; Status DC Memantine (Namenda) 5 mg DAILY PO Last administered on 06/07/17at 09:02; Start 05/20/17 at 09:00; Stop 06/07/17 at 18:46; Status DC Mirtazapine (Remeron) 15 mg QHS PO Last administered on 06/06/17at 20:36; Start 05/19/17 at 21:00; Stop 06/07/17 at 18:46; Status DC Quetiapine Fumarate (SEROquel) 400 mg QHS PO Last administered on 05/22/17at 19: 57; Start 05/19/17 at 21:00; Stop 05/23/17 at 18:44; Status DC Venlafaxine HCl (Effexor) 50 mg TID PO Last administered on 05/20/17at 14:00; Start 05/19/17 at 21:00; Stop 05/20/17 at 19:25; Status DC Acetaminophen (Tylenol) 650 mg PRN Q4HRS PRN PO PAIN Last administered on at 08:06; Start 05/19/17 at 18:15 Vitamin D (Vitamin D3) 3,000 unit QHS PO Last administered on 06/06/17at 20:22; Start 05/19/17 at 21:00 Fluticasone Propionate (Flonase) 2 spray PRN BID PRN NS ALLERGIES; Start at 18:15 Gabapentin (Neurontin) 100 mg PRN Q6HRS PRN PO ANXIETY; Start 05/19/17 at 18:15 ; Stop 05/20/17 at 19:25; Status DC Guaifenesin (Mucinex Er) 600 mg PRN BID PRN PO coughing; Start 05/19/17 at 18: 15 Ketoconazole (Nizoral 2% Shampoo) 1 missael QMONFR TP Last administered on at 08:07; Start 05/26/17 at 16:00 Lidocaine HCl (Uro-Jet) 5 missael PRN Q4HRS PRN TP PAIN; Start 05/19/17 at 18:15; Stop 05/19/17 at 20:05; Status DC Nystatin (Mycostatin) 1 missael PRN BID PRN TP itching; Start 05/19/17 at 18:15; Stop 06/02/17 at 11:13; Status DC Polyethylene Glycol (miraLAX) 17 gm HS PO Last administered on 06/06/17at 20:36 ; Start 05/19/17 at 21:00 Gabapentin (Neurontin) 600 mg QID PO Last administered on 05/20/17at 17:21; Start 05/19/17 at 21:00; Stop 05/20/17 at 19:25; Status DC Multivitamins/ Calcium (Thera-M Plus) 1 tab DAILY PO Last administered on at 07:59; Start 05/20/17 at 09:00; Stop 05/21/17 at 14:59; Status DC Fish Oil (Fish Oil) 1,000 mg QHS PO Last administered on 06/06/17at 20:36; Start 05/19/17 at 21:00 Ondansetron HCl (Zofran Odt) 4 mg PRN Q6HRS PRN PO NAUSEA; Start 05/19/17 at 19 :00 Non-Formulary Medication 1 drop QID EACHEYE ; Start 05/19/17 at 21:00; Stop at 21:00; Status DC Artificial Tears (Artificial Tears) 1 drop PRN QID PRN OU DRY EYE; Start at 19:00; Stop 05/20/17 at 14:59; Status DC Lidocaine HCl (Xylocaine 2% Topical 5gm Tube) 1 missael PRN Q4HRS PRN TP PAIN; Start 05/19/17 at 20:15; Stop 05/20/17 at 14:59; Status DC Lidocaine HCl (Xylocaine 2% Topical 5gm Tube) 1 missael PRN Q4HRS PRN TP PAIN Last administered on 05/23/17at 05:41; Start 05/20/17 at 14:59 Artificial Tears (Artificial Tears) 1 drop PRN QID PRN OU DRY EYE Last administered on 05/29/17at 08:44; Start 05/20/17 at 14:59 Gabapentin (Neurontin) 600 mg TID PO Last administered on 06/01/17at 19:24; Start 05/20/17 at 21:00; Stop 06/01/17 at 23:00; Status DC Duloxetine HCl (Cymbalta) 30 mg DAILY PO Last administered on 06/03/17at 07:42; Start 05/21/17 at 09:00; Stop 06/03/17 at 18:33; Status DC Lamotrigine (LaMICtal) 150 mg DAILY PO Last administered on 05/29/17at 08:40; Start 05/21/17 at 09:00; Stop 05/29/17 at 17:46; Status DC Lamotrigine (LaMICtal) 200 mg HS PO Last administered on 05/28/17at 19:45; Start 05/20/17 at 21:00; Stop 05/29/17 at 17:46; Status DC Prenat Multivit/ [place]/Iron/Folic Ac (Multivitamin ) 1 tab DAILYBFRSUP PO Last administered on 06/07/17at 16:57; Start 05/21/17 at 17:00 Fosfomycin Tromethamine (Monurol) 3 gm 1X ONCE PO Last administered on at 15:00; Start 05/21/17 at 15:00; Stop 05/21/17 at 15:01; Status DC Quetiapine Fumarate (SEROquel) 300 mg QHS PO Last administered on 05/25/17at 20: 28; Start 05/23/17 at 21:00; Stop 05/26/17 at 17:47; Status DC Nystatin (Nystop) 15 missael STK-MED ONCE TP Last administered on 05/24/17at 17:40; Start 05/24/17 at 17:40; Stop 05/24/17 at 17:41; Status DC Sodium Chloride (Saline Mist Nasal) 1 missael PRN Q1HR PRN NS NASAL CONGESTION Last administered on 05/27/17at 20:38; Start 05/25/17 at 09:15 Quetiapine Fumarate (SEROquel) 200 mg QHS PO Last administered on 06/04/17at 20: 24; Start 05/26/17 at 21:00; Stop 06/05/17 at 17:39; Status DC Ketorolac Tromethamine (Acular) 1 drop Q8HRS OD Last administered on 06/03/17at 06:23; Start 05/29/17 at 14:00; Stop 06/03/17 at 13:59; Status DC Lamotrigine (LaMICtal) 200 mg BID PO Last administered on 06/03/17at 07:42; Start 05/29/17 at 21:00; Stop 06/03/17 at 18:33; Status DC Clonazepam (KlonoPIN) 1 mg DAILY PO Last administered on 06/01/17at 08:07; Start 05/30/17 at 09:00; Stop 06/01/17 at 12:25; Status DC Clonazepam (KlonoPIN) 0.75 mg QHS PO Last administered on 06/06/17at 20:39; Start 05/29/17 at 21:00; Stop 06/08/17 at 21:00 Donepezil HCl (Aricept) 10 mg QHS PO Last administered on 06/06/17at 20:22; Start 05/31/17 at 21:00; Stop 06/07/17 at 18:46; Status DC Clonazepam (KlonoPIN) 0.75 mg DAILY PO Last administered on 06/04/17at 07:52; Start 06/02/17 at 09:00; Stop 06/04/17 at 09:01; Status DC Clonazepam (KlonoPIN) 0.5 mg DAILY PO Last administered on 06/07/17at 09:06; Start 06/05/17 at 09:00; Stop 06/13/17 at 09:01 Clonazepam (KlonoPIN) 0.5 mg HS PO ; Start 06/08/17 at 21:00; Stop 06/10/17 at 21:01 Ciprofloxacin (Cipro) 250 mg BID PO Last administered on 06/06/17at 08:20; Start 06/01/17 at 21:00; Stop 06/06/17 at 20:59; Status DC Gabapentin (Neurontin) 300 mg QID PO Last administered on 06/05/17at 19:42; Start 06/02/17 at 04:00; Stop 06/05/17 at 23:00; Status DC Gabapentin (Neurontin) 300 mg TID PO Last administered on 06/07/17at 14:13; Start 06/06/17 at 04:00; Stop 06/08/17 at 23:00 Gabapentin (Neurontin) 300 mg BID PO ; Start 06/09/17 at 04:00 Lactobacillus Rhamnosus (Culturelle) 1 cap BID PO Last administered on at 09:02; Start 06/02/17 at 21:00 Nystatin (Mycostatin) 1 missael BID TP ; Start 06/02/17 at 21:00; Stop 06/02/17 at 21: 07; Status DC Nystatin (Mycostatin) 1 missael BID TP ; Start 06/02/17 at 21:00; Stop 06/03/17 at 07 :47; Status DC Nystatin (Nystop) 1 missael BID TP Last administered on 06/07/17at 09:10; Start 02/08 at 09:00 Lamotrigine (LaMICtal) 150 mg HS PO Last administered on 06/05/17at 19:40; Start 06/03/17 at 21:00; Stop 06/06/17 at 00:00; Status DC Duloxetine HCl (Cymbalta) 60 mg DAILY PO Last administered on 06/07/17at 09:02; Start 06/04/17 at 09:00; Stop 06/07/17 at 18:46; Status DC Lamotrigine (LaMICtal) 100 mg DAILY PO Last administered on 06/04/17at 07:54; Start 06/04/17 at 09:00; Stop 06/04/17 at 09:50; Status DC Lamotrigine (LaMICtal) 200 mg DAILY PO Last administered on 06/07/17at 09:02; Start 06/05/17 at 09:00 Lamotrigine (LaMICtal) 200 mg HS PO Last administered on 06/06/17at 20:39; Start 06/06/17 at 21:00 Lamotrigine (LaMICtal) 100 mg 1X ONCE PO Last administered on 06/04/17at 10:00 ; Start 06/04/17 at 10:00; Stop 06/04/17 at 10:01; Status DC Quetiapine Fumarate (SEROquel) 250 mg QHS PO Last administered on 06/06/17at 20: 20; Start 06/05/17 at 21:00 Duloxetine HCl (Cymbalta) 30 mg DAILY PO ; Start 06/08/17 at 09:00; Stop at 08:59 Active Scripts Active Reported Vitamin D3 (Cholecalciferol (Vitamin D3)) 1,000 Unit Tablet 3,000 Unit PO QHS Systane 0.3-0.4% Eye Drops (Propylene Glycol/Peg 400) 15 Ml Drops 1 Drop EACHEYE QID Systane 0.3-0.4% Eye Drops (Propylene Glycol/Peg 400) 15 Ml Drops 1 Drop EACHEYE QIDPRN PRN Pain Reliever Plus Tablet (Aspirin/Acetaminophen/Caffeine) 1 Each Tablet 2 Each PO PRN PRN Ondansetron Hcl 4 Mg Tablet 4 Mg PO PRN Q6HRS PRN Nystatin 100,000 Unit/1 Ml Oral.susp 100,000 Unit PO Nystatin 15 Gm Cream..g. 1 Missael TP PRN BID PRN Miralax (Polyethylene Glycol 3350) 17 Gm Powd.pack 17 Gm PO HS Lidocaine Hcl 5 Ml Jel..ml. 5 Ml TOP PRN Q4HRS Ketoconazole 120 Ml Shampoo 1 Missael TP TWICE WEEKLY Ibuprofen 100 Mg/5 Ml Oral.susp 200 Mg PO PRN TID PRN Hydroxyzine Hcl 25 Mg Tablet 25 Mg PO PRN Q4HRS PRN Hydrocortisone 453.6 Gm Oint...g. 1 Missael TP PRN BID PRN Epa-Dha 720 Softgel ([place]-3/Dha/Epa/Fish Oil) 1 Each Capsule 1 Each PO QHS Donepezil Hcl 5 Mg Tablet 5 Mg PO QHS Saline Nasal [place] (Sodium Chloride) 30 Ml [place] 1 Spr NS PRN PRN Tylenol (Acetaminophen) 325 Mg Tablet 650 Mg PO PRN Q4HRS PRN Seroquel (Quetiapine Fumarate) 400 Mg Tablet 400 Mg PO HS Mirtazapine 15 Mg Tablet 15 Mg PO QHS Lamotrigine 150 Mg Tablet 150 Mg PO BID Fluticasone Propionate Nasal [place] (Fluticasone Propionate) 16 Gm [place].susp 2 [place] NS PRN BID PRN Effexor Xr (Venlafaxine Hcl) 150 Mg Cap.er.24h 150 Mg PO DAILY Multi Vitamin Daily (Multivitamin) 1 Each Tablet 1 Each PO DAILY Mucinex (Guaifenesin) 600 Mg Tablet.er 600 Mg PO PRN BID PRN Namenda (Memantine Hcl) 10 Mg Tablet 5 Mg PO DAILY Gabapentin 600 Mg Tablet 600 Mg PO QID Gabapentin 100 Mg Capsule 100 Mg PO PRN Q6HRS Clonazepam 1 Mg Tablet 1 Mg PO BID I have reviewed the current psychotropics carefully including drug interactions. Risk benefit ratio favors no change other than as noted in my dictated progress note. Diagnosis: Problems: (1) Major depression (2) Anxiety (3) Bipolar affective disorder, mixed (4) Anxiety disorder (5) Major depressive disorder, recurrent episode (6) Impulse control disorder BRIAN CHAPA MD Jun 07, 2017 19:01
[2017-06-07] MEDS: OMEGA-3 FATTY ACIDS/FISH OIL 1,000 MG CAPSULE. PO SCH (19:39)
[2017-06-07] MEDS: QUEtiapine 100 MG TABLET. PO SCH (19:39)
[2017-06-07] MEDS: POLYETHYLENE GLYCOL 3350 17 GM PACKET. PO SCH (19:40)
[2017-06-07] MEDS: CHOLECALCIFEROL (VITAMIN D3) 1,000 UNIT TABLET PO SCH (19:40)
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
[2017-06-08] MEDS: NYSTATIN TOPICAL POWDER 15GM BOTTLE. TP SCH ×3 (05:07→20:31)
[2017-06-08 06:09] VITALS: BP 126/67
--- NOTE | 2017-06-08 07:33 | RAD ---
EXAM: CT head without contrast. HISTORY: Altered mental status, dementia. TECHNIQUE: Computed tomography of the head was performed without intravenous contrast. COMPARISON: None. FINDINGS: There is no intracranial hemorrhage. Mild hypoattenuation within the periventricular white matter indicates mild to moderate chronic small vessel ischemic change. Prominence of the lateral ventricles and hemispheric sulci indicate moderate atrophy. The visualized paranasal sinuses appear clear. There are changes of bilateral cataract surgery. The temporal bones are unremarkable. The calvarium reveals no suspicious lesions. IMPRESSION: 1. Moderate lateral ventricular enlargement most likely reflects atrophy, but correlate clinically to exclude normal pressure hydrocephalus. 2. Mild to moderate chronic small vessel ischemic white matter change. *One or more of the following individualized dose reduction techniques were utilized for this examination: 1. Automated exposure control. 2. Adjustment of the mA and/or kV according to patient size. 3. Use of iterative reconstruction technique.
[2017-06-08] MEDS: LACTOBACILLUS RHAMNOSUS GG 1 CAPSULE. PO SCH ×2 (09:03→20:22)
[2017-06-08] MEDS: GABAPENTIN 300 MG CAPSULE. PO SCH ×3 (09:03→20:23)
[2017-06-08] MEDS: lamoTRIgine 100 MG TABLET. PO SCH ×2 (09:03→20:23)
[2017-06-08] MEDS: clonazePAM 0.5 MG TABLET PO SCH ×3 (09:04→20:31)
[2017-06-08] MEDS: DULoxetine HCL 30 MG CAPSULE.DR PO SCH (09:05)
[2017-06-08 15:42] VITALS: BP 130/67
[2017-06-08] MEDS: PRENATAL MULTIVITAMIN TABLET. PO SCH (16:56)
--- NOTE | 2017-06-08 19:42 | PDOC ---
Exam Note: Greg Note: Please also refer to the separate dictated note~for this date of service dictated separately.~Patient seen individually. Discussed the patient with Nursing staff reviewed the chart.~Reviewed interim history and current functioning. Reviewed vital signs,~Labs/ Radiology~and current medications noted below. Continue current treatment with the changes noted in the dictated addendum note Assessment: Vital Signs: Vital Signs Date Time Temp Pulse Resp B/P (MAP) Pulse Ox O2 Delivery O2 Flow Rate FiO2 06/08/17 15:42 97.4 77 20 130/67 (88) 99 06/07/17 06:30 Room Air I&O Intake and Output 06/08/17 07:00 Intake Total 680 ml Balance 680 ml Intake Oral 680 ml # Bowel Movements 3 Current Medications: Meds: Current Medications Acetaminophen (Tylenol) 650 mg PRN Q6HRS PRN PO PAIN / TEMP; Start 05/19/17 at 16:15; Stop 05/19/17 at 18:42; Status DC Multi-Ingredient Ointment (Analgesic [place]) 1 missael PRN QID PRN TP MUSCLE PAIN; Start 05/19/17 at 16:15 Al Hydroxide/Mg Hydroxide (Mylanta Plus Xs) 15 ml PRN AFTMEALHC PRN PO DYSPEPSIA Last administered on 05/26/17at 20:02; Start 05/19/17 at 16:15 Magnesium Hydroxide (Milk Of Magnesia) 2,400 mg PRN QHS PRN PO CONSTIPATION; Start 05/19/17 at 16:15 Clonazepam (KlonoPIN) 1 mg BID PO Last administered on 05/29/17at 08:45; Start at 21:00; Stop 05/29/17 at 17:47; Status DC Donepezil HCl (Aricept) 5 mg QHS PO Last administered on 05/30/17at 20:24; Start 05/19/17 at 21:00; Stop 05/31/17 at 18:41; Status DC Lamotrigine (LaMICtal) 150 mg BID PO Last administered on 05/20/17at 20:17; Start 05/19/17 at 21:00; Stop 05/20/17 at 20:37; Status DC Memantine (Namenda) 5 mg DAILY PO Last administered on 06/07/17at 09:02; Start 05/20/17 at 09:00; Stop 06/07/17 at 18:46; Status DC Mirtazapine (Remeron) 15 mg QHS PO Last administered on 06/06/17at 20:36; Start 05/19/17 at 21:00; Stop 06/07/17 at 18:46; Status DC Quetiapine Fumarate (SEROquel) 400 mg QHS PO Last administered on 05/22/17at 19: 57; Start 05/19/17 at 21:00; Stop 05/23/17 at 18:44; Status DC Venlafaxine HCl (Effexor) 50 mg TID PO Last administered on 05/20/17at 14:00; Start 05/19/17 at 21:00; Stop 05/20/17 at 19:25; Status DC Acetaminophen (Tylenol) 650 mg PRN Q4HRS PRN PO PAIN Last administered on at 08:06; Start 05/19/17 at 18:15 Vitamin D (Vitamin D3) 3,000 unit QHS PO Last administered on 06/07/17at 19:40; Start 05/19/17 at 21:00 Fluticasone Propionate (Flonase) 2 spray PRN BID PRN NS ALLERGIES; Start at 18:15 Gabapentin (Neurontin) 100 mg PRN Q6HRS PRN PO ANXIETY; Start 05/19/17 at 18:15 ; Stop 05/20/17 at 19:25; Status DC Guaifenesin (Mucinex Er) 600 mg PRN BID PRN PO coughing; Start 05/19/17 at 18: 15 Ketoconazole (Nizoral 2% Shampoo) 1 missael QMONFR TP Last administered on at 08:07; Start 05/26/17 at 16:00 Lidocaine HCl (Uro-Jet) 5 missael PRN Q4HRS PRN TP PAIN; Start 05/19/17 at 18:15; Stop 05/19/17 at 20:05; Status DC Nystatin (Mycostatin) 1 missael PRN BID PRN TP itching; Start 05/19/17 at 18:15; Stop 06/02/17 at 11:13; Status DC Polyethylene Glycol (miraLAX) 17 gm HS PO Last administered on 06/07/17at 19:40 ; Start 05/19/17 at 21:00 Gabapentin (Neurontin) 600 mg QID PO Last administered on 05/20/17at 17:21; Start 05/19/17 at 21:00; Stop 05/20/17 at 19:25; Status DC Multivitamins/ Calcium (Thera-M Plus) 1 tab DAILY PO Last administered on at 07:59; Start 05/20/17 at 09:00; Stop 05/21/17 at 14:59; Status DC Fish Oil (Fish Oil) 1,000 mg QHS PO Last administered on 06/07/17at 19:39; Start 05/19/17 at 21:00 Ondansetron HCl (Zofran Odt) 4 mg PRN Q6HRS PRN PO NAUSEA; Start 05/19/17 at 19 :00 Non-Formulary Medication 1 drop QID EACHEYE ; Start 05/19/17 at 21:00; Stop at 21:00; Status DC Artificial Tears (Artificial Tears) 1 drop PRN QID PRN OU DRY EYE; Start at 19:00; Stop 05/20/17 at 14:59; Status DC Lidocaine HCl (Xylocaine 2% Topical 5gm Tube) 1 missael PRN Q4HRS PRN TP PAIN; Start 05/19/17 at 20:15; Stop 05/20/17 at 14:59; Status DC Lidocaine HCl (Xylocaine 2% Topical 5gm Tube) 1 missael PRN Q4HRS PRN TP PAIN Last administered on 05/23/17at 05:41; Start 05/20/17 at 14:59 Artificial Tears (Artificial Tears) 1 drop PRN QID PRN OU DRY EYE Last administered on 05/29/17at 08:44; Start 05/20/17 at 14:59 Gabapentin (Neurontin) 600 mg TID PO Last administered on 06/01/17at 19:24; Start 05/20/17 at 21:00; Stop 06/01/17 at 23:00; Status DC Duloxetine HCl (Cymbalta) 30 mg DAILY PO Last administered on 06/03/17at 07:42; Start 05/21/17 at 09:00; Stop 06/03/17 at 18:33; Status DC Lamotrigine (LaMICtal) 150 mg DAILY PO Last administered on 05/29/17 08:40; Start 05/21/17 at 09:00; Stop 05/29/17 at 17:46; Status DC Lamotrigine (LaMICtal) 200 mg HS PO Last administered on 05/28/17at 19:45; Start 05/20/17 at 21:00; Stop 05/29/17 at 17:46; Status DC Prenat Multivit/ [place]/Iron/Folic Ac (Multivitamin ) 1 tab DAILYBFRSUP PO Last administered on 06/08/17at 16:56; Start 05/21/17 at 17:00 Fosfomycin Tromethamine (Monurol) 3 gm 1X ONCE PO Last administered on at 15:00; Start 05/21/17 at 15:00; Stop 05/21/17 at 15:01; Status DC Quetiapine Fumarate (SEROquel) 300 mg QHS PO Last administered on 05/25/17at 20: 28; Start 05/23/17 at 21:00; Stop 05/26/17 at 17:47; Status DC Nystatin (Nystop) 15 missael STK-MED ONCE TP Last administered on 05/24/17at 17:40; Start 05/24/17 at 17:40; Stop 05/24/17 at 17:41; Status DC Sodium Chloride (Saline Mist Nasal) 1 missael PRN Q1HR PRN NS NASAL CONGESTION Last administered on 05/27/17at 20:38; Start 05/25/17 at 09:15 Quetiapine Fumarate (SEROquel) 200 mg QHS PO Last administered on 06/04/17at 20: 24; Start 05/26/17 at 21:00; Stop 06/05/17 at 17:39; Status DC Ketorolac Tromethamine (Acular) 1 drop Q8HRS OD Last administered on 06/03/17at 06:23; Start 05/29/17 at 14:00; Stop 06/03/17 at 13:59; Status DC Lamotrigine (LaMICtal) 200 mg BID PO Last administered on 06/03/17at 07:42; Start 05/29/17 at 21:00; Stop 06/03/17 at 18:33; Status DC Clonazepam (KlonoPIN) 1 mg DAILY PO Last administered on 06/01/17at 08:07; Start 05/30/17 at 09:00; Stop 06/01/17 at 12:25; Status DC Clonazepam (KlonoPIN) 0.75 mg QHS PO Last administered on 06/07/17at 19:56; Start 05/29/17 at 21:00; Stop 06/08/17 at 21:00 Donepezil HCl (Aricept) 10 mg QHS PO Last administered on 06/06/17at 20:22; Start 05/31/17 at 21:00; Stop 06/07/17 at 18:46; Status DC Clonazepam (KlonoPIN) 0.75 mg DAILY PO Last administered on 06/04/17at 07:52; Start 06/02/17 at 09:00; Stop 06/04/17 at 09:01; Status DC Clonazepam (KlonoPIN) 0.5 mg DAILY PO Last administered on 06/08/17at 09:04; Start 06/05/17 at 09:00; Stop 06/13/17 at 09:01 Clonazepam (KlonoPIN) 0.5 mg HS PO ; Start 06/08/17 at 21:00; Stop 06/10/17 at 21:01 Ciprofloxacin (Cipro) 250 mg BID PO Last administered on 06/06/17at 08:20; Start 06/01/17 at 21:00; Stop 06/06/17 at 20:59; Status DC Gabapentin (Neurontin) 300 mg QID PO Last administered on 06/05/17at 19:42; Start 06/02/17 at 04:00; Stop 06/05/17 at 23:00; Status DC Gabapentin (Neurontin) 300 mg TID PO Last administered on 06/08/17at 14:07; Start 06/06/17 at 04:00; Stop 06/08/17 at 23:00 Gabapentin (Neurontin) 300 mg BID PO ; Start 06/09/17 at 04:00 Lactobacillus Rhamnosus (Culturelle) 1 cap BID PO Last administered on at 09:03; Start 06/02/17 at 21:00 Nystatin (Mycostatin) 1 missael BID TP ; Start 06/02/17 at 21:00; Stop 06/02/17 at 21: 07; Status DC Nystatin (Mycostatin) 1 missael BID TP ; Start 06/02/17 at 21:00; Stop 06/03/17 at 07 :47; Status DC Nystatin (Nystop) 1 missael BID TP Last administered on 06/08/17at 09:05; Start 02/08 at 09:00 Lamotrigine (LaMICtal) 150 mg HS PO Last administered on 06/05/17at 19:40; Start 06/03/17 at 21:00; Stop 06/06/17 at 00:00; Status DC Duloxetine HCl (Cymbalta) 60 mg DAILY PO Last administered on 06/07/17at 09:02; Start 06/04/17 at 09:00; Stop 06/07/17 at 18:46; Status DC Lamotrigine (LaMICtal) 100 mg DAILY PO Last administered on 06/04/17at 07:54; Start 06/04/17 at 09:00; Stop 06/04/17 at 09:50; Status DC Lamotrigine (LaMICtal) 200 mg DAILY PO Last administered on 06/08/17at 09:03; Start 06/05/17 at 09:00 Lamotrigine (LaMICtal) 200 mg HS PO Last administered on 06/07/17at 19:38; Start 06/06/17 at 21:00 Lamotrigine (LaMICtal) 100 mg 1X ONCE PO Last administered on 06/04/17at 10:00 ; Start 06/04/17 at 10:00; Stop 06/04/17 at 10:01; Status DC Quetiapine Fumarate (SEROquel) 250 mg QHS PO Last administered on 06/07/17at 19: 39; Start 06/05/17 at 21:00 Duloxetine HCl (Cymbalta) 30 mg DAILY PO Last administered on 06/08/17at 09:05; Start 06/08/17 at 09:00; Stop 06/11/17 at 08:59 Active Scripts Active Reported Vitamin D3 (Cholecalciferol (Vitamin D3)) 1,000 Unit Tablet 3,000 Unit PO QHS Systane 0.3-0.4% Eye Drops (Propylene Glycol/Peg 400) 15 Ml Drops 1 Drop EACHEYE QID Systane 0.3-0.4% Eye Drops (Propylene Glycol/Peg 400) 15 Ml Drops 1 Drop EACHEYE QIDPRN PRN Pain Reliever Plus Tablet (Aspirin/Acetaminophen/Caffeine) 1 Each Tablet 2 Each PO PRN PRN Ondansetron Hcl 4 Mg Tablet 4 Mg PO PRN Q6HRS PRN Nystatin 100,000 Unit/1 Ml Oral.susp 100,000 Unit PO Nystatin 15 Gm Cream..g. 1 [place] TP PRN BID PRN Miralax (Polyethylene Glycol 3350) 17 Gm Powd.pack 17 Gm PO HS Lidocaine Hcl 5 Ml Jel..ml. 5 Ml TOP PRN Q4HRS Ketoconazole 120 Ml Shampoo 1 [place] TP TWICE WEEKLY Ibuprofen 100 Mg/5 Ml Oral.susp 200 Mg PO PRN TID PRN Hydroxyzine Hcl 25 Mg Tablet 25 Mg PO PRN Q4HRS PRN Hydrocortisone 453.6 Gm Oint...g. 1 [place] TP PRN BID PRN Epa-Dha 720 Softgel ([place]-3/Dha/Epa/Fish Oil) 1 Each Capsule 1 Each PO QHS Donepezil Hcl 5 Mg Tablet 5 Mg PO QHS Saline Nasal [place] (Sodium Chloride) 30 Ml [place] 1 Spr NS PRN PRN Tylenol (Acetaminophen) 325 Mg Tablet 650 Mg PO PRN Q4HRS PRN Seroquel (Quetiapine Fumarate) 400 Mg Tablet 400 Mg PO HS Mirtazapine 15 Mg Tablet 15 Mg PO QHS Lamotrigine 150 Mg Tablet 150 Mg PO BID Fluticasone Propionate Nasal [place] (Fluticasone Propionate) 16 Gm [place].susp 2 Hye NS PRN BID PRN Effexor Xr (Venlafaxine Hcl) 150 Mg Cap.er.24h 150 Mg PO DAILY Multi Vitamin Daily (Multivitamin) 1 Each Tablet 1 Each PO DAILY Mucinex (Guaifenesin) 600 Mg Tablet.er 600 Mg PO PRN BID PRN Namenda (Memantine Hcl) 10 Mg Tablet 5 Mg PO DAILY Gabapentin 600 Mg Tablet 600 Mg PO QID Gabapentin 100 Mg Capsule 100 Mg PO PRN Q6HRS Clonazepam 1 Mg Tablet 1 Mg PO BID I have reviewed the current psychotropics carefully including drug interactions. Risk benefit ratio favors no change other than as noted in my dictated progress note. Diagnosis: Problems: (1) Major depression (2) Anxiety (3) Bipolar affective disorder, mixed (4) Anxiety disorder (5) Major depressive disorder, recurrent episode (6) Impulse control disorder BRIAN CHAPA MD Jun 08, 2017 19:42
[2017-06-08] MEDS: CHOLECALCIFEROL (VITAMIN D3) 1,000 UNIT TABLET PO SCH (20:22)
[2017-06-08] MEDS: OMEGA-3 FATTY ACIDS/FISH OIL 1,000 MG CAPSULE. PO SCH (20:22)
[2017-06-08] MEDS: QUEtiapine 100 MG TABLET. PO SCH (20:24)
[2017-06-08] MEDS: POLYETHYLENE GLYCOL 3350 17 GM PACKET. PO SCH (20:24)
[2017-06-09] MEDS ORDERED: GABAPENTIN 300 MG CAPSULE. PO SCH (04:00)
[2017-06-09 06:08] VITALS: BP 114/54
[2017-06-09] MEDS: NYSTATIN TOPICAL POWDER 15GM BOTTLE. TP SCH ×2 (09:00→20:32)
[2017-06-09] MEDS: lamoTRIgine 100 MG TABLET. PO SCH ×2 (09:23→20:18)
[2017-06-09] MEDS: DULoxetine HCL 30 MG CAPSULE.DR PO SCH (09:23)
[2017-06-09] MEDS: LACTOBACILLUS RHAMNOSUS GG 1 CAPSULE. PO SCH ×2 (09:23→20:19)
[2017-06-09] MEDS: clonazePAM 0.5 MG TABLET PO SCH ×2 (09:25→20:18)
[2017-06-09] MEDS: KETOCONAZOLE 2% SHAMPOO 120ML BOTTLE. TP SCH (16:00)
[2017-06-09 16:13] VITALS: BP 144/84
[2017-06-09] MEDS: PRENATAL MULTIVITAMIN TABLET. PO SCH (17:00)
--- NOTE | 2017-06-09 19:56 | PDOC ---
Exam Note: Greg Note: Please also refer to the separate dictated note~for this date of service dictated separately.~Patient seen individually. Discussed the patient with Nursing staff reviewed the chart.~Reviewed interim history and current functioning. Reviewed vital signs,~Labs/ Radiology~and current medications noted below. Continue current treatment with the changes noted in the dictated addendum note Assessment: Vital Signs: Vital Signs Date Time Temp Pulse Resp B/P (MAP) Pulse Ox O2 Delivery O2 Flow Rate FiO2 06/09/17 16:13 97.8 110 18 144/84 (104) 97 06/07/17 06:30 Room Air I&O Intake and Output 06/09/17 07:00 Intake Total 960 ml Balance 960 ml Intake Oral 960 ml # Bowel Movements 3 Current Medications: Meds: Current Medications Acetaminophen (Tylenol) 650 mg PRN Q6HRS PRN PO PAIN / TEMP; Start 05/19/17 at 16:15; Stop 05/19/17 at 18:42; Status DC Multi-Ingredient Ointment (Analgesic [place]) 1 missael PRN QID PRN TP MUSCLE PAIN; Start 05/19/17 at 16:15 Al Hydroxide/Mg Hydroxide (Mylanta Plus Xs) 15 ml PRN AFTMEALHC PRN PO DYSPEPSIA Last administered on 05/26/17at 20:02; Start 05/19/17 at 16:15 Magnesium Hydroxide (Milk Of Magnesia) 2,400 mg PRN QHS PRN PO CONSTIPATION; Start 05/19/17 at 16:15 Clonazepam (KlonoPIN) 1 mg BID PO Last administered on 05/29/17at 08:45; Start at 21:00; Stop 05/29/17 at 17:47; Status DC Donepezil HCl (Aricept) 5 mg QHS PO Last administered on 05/30/17at 20:24; Start 05/19/17 at 21:00; Stop 05/31/17 at 18:41; Status DC Lamotrigine (LaMICtal) 150 mg BID PO Last administered on 05/20/17at 20:17; Start 05/19/17 at 21:00; Stop 05/20/17 at 20:37; Status DC Memantine (Namenda) 5 mg DAILY PO Last administered on 06/07/17at 09:02; Start 05/20/17 at 09:00; Stop 06/07/17 at 18:46; Status DC Mirtazapine (Remeron) 15 mg QHS PO Last administered on 06/06/17at 20:36; Start 05/19/17 at 21:00; Stop 06/07/17 at 18:46; Status DC Quetiapine Fumarate (SEROquel) 400 mg QHS PO Last administered on 05/22/17at 19: 57; Start 05/19/17 at 21:00; Stop 05/23/17 at 18:44; Status DC Venlafaxine HCl (Effexor) 50 mg TID PO Last administered on 05/20/17at 14:00; Start 05/19/17 at 21:00; Stop 05/20/17 at 19:25; Status DC Acetaminophen (Tylenol) 650 mg PRN Q4HRS PRN PO PAIN Last administered on at 08:06; Start 05/19/17 at 18:15 Vitamin D (Vitamin D3) 3,000 unit QHS PO Last administered on 06/08/17at 20:22; Start 05/19/17 at 21:00 Fluticasone Propionate (Flonase) 2 spray PRN BID PRN NS ALLERGIES; Start at 18:15 Gabapentin (Neurontin) 100 mg PRN Q6HRS PRN PO ANXIETY; Start 05/19/17 at 18:15 ; Stop 05/20/17 at 19:25; Status DC Guaifenesin (Mucinex Er) 600 mg PRN BID PRN PO coughing; Start 05/19/17 at 18: 15 Ketoconazole (Nizoral 2% Shampoo) 1 missael QMONFR TP Last administered on at 08:07; Start 05/26/17 at 16:00 Lidocaine HCl (Uro-Jet) 5 missael PRN Q4HRS PRN TP PAIN; Start 05/19/17 at 18:15; Stop 05/19/17 at 20:05; Status DC Nystatin (Mycostatin) 1 missael PRN BID PRN TP itching; Start 05/19/17 at 18:15; Stop 06/02/17 at 11:13; Status DC Polyethylene Glycol (miraLAX) 17 gm HS PO Last administered on 06/08/17at 20:24 ; Start 05/19/17 at 21:00 Gabapentin (Neurontin) 600 mg QID PO Last administered on 05/20/17at 17:21; Start 05/19/17 at 21:00; Stop 05/20/17 at 19:25; Status DC Multivitamins/ Calcium (Thera-M Plus) 1 tab DAILY PO Last administered on at 07:59; Start 05/20/17 at 09:00; Stop 05/21/17 at 14:59; Status DC Fish Oil (Fish Oil) 1,000 mg QHS PO Last administered on 06/08/17at 20:22; Start 05/19/17 at 21:00 Ondansetron HCl (Zofran Odt) 4 mg PRN Q6HRS PRN PO NAUSEA; Start 05/19/17 at 19 :00 Non-Formulary Medication 1 drop QID EACHEYE ; Start 05/19/17 at 21:00; Stop at 21:00; Status DC Artificial Tears (Artificial Tears) 1 drop PRN QID PRN OU DRY EYE; Start at 19:00; Stop 05/20/17 at 14:59; Status DC Lidocaine HCl (Xylocaine 2% Topical 5gm Tube) 1 missael PRN Q4HRS PRN TP PAIN; Start 05/19/17 at 20:15; Stop 05/20/17 at 14:59; Status DC Lidocaine HCl (Xylocaine 2% Topical 5gm Tube) 1 missael PRN Q4HRS PRN TP PAIN Last administered on 05/23/17at 05:41; Start 05/20/17 at 14:59 Artificial Tears (Artificial Tears) 1 drop PRN QID PRN OU DRY EYE Last administered on 05/29/17at 08:44; Start 05/20/17 at 14:59 Gabapentin (Neurontin) 600 mg TID PO Last administered on 06/01/17at 19:24; Start 05/20/17 at 21:00; Stop 06/01/17 at 23:00; Status DC Duloxetine HCl (Cymbalta) 30 mg DAILY PO Last administered on 06/03/17at 07:42; Start 05/21/17 at 09:00; Stop 06/03/17 at 18:33; Status DC Lamotrigine (LaMICtal) 150 mg DAILY PO Last administered on 05/29/17at 08:40; Start 05/21/17 at 09:00; Stop 05/29/17 at 17:46; Status DC Lamotrigine (LaMICtal) 200 mg HS PO Last administered on 05/28/17at 19:45; Start 05/20/17 at 21:00; Stop 05/29/17 at 17:46; Status DC Prenat Multivit/ Mcminn/Iron/Folic Ac (Multivitamin ) 1 tab DAILYBFRSUP PO Last administered on 06/08/17at 16:56; Start 05/21/17 at 17:00 Fosfomycin Tromethamine (Monurol) 3 gm 1X ONCE PO Last administered on at 15:00; Start 05/21/17 at 15:00; Stop 05/21/17 at 15:01; Status DC Quetiapine Fumarate (SEROquel) 300 mg QHS PO Last administered on 05/25/17at 20: 28; Start 05/23/17 at 21:00; Stop 05/26/17 at 17:47; Status DC Nystatin (Nystop) 15 missael STK-MED ONCE TP Last administered on 05/24/17at 17:40; Start 05/24/17 at 17:40; Stop 05/24/17 at 17:41; Status DC Sodium Chloride (Saline Mist Nasal) 1 missael PRN Q1HR PRN NS NASAL CONGESTION Last administered on 05/27/17at 20:38; Start 05/25/17 at 09:15 Quetiapine Fumarate (SEROquel) 200 mg QHS PO Last administered on 06/04/17at 20: 24; Start 05/26/17 at 21:00; Stop 06/05/17 at 17:39; Status DC Ketorolac Tromethamine (Acular) 1 drop Q8HRS OD Last administered on 06/03/17at 06:23; Start 05/29/17 at 14:00; Stop 06/03/17 at 13:59; Status DC Lamotrigine (LaMICtal) 200 mg BID PO Last administered on 06/03/17at 07:42; Start 05/29/17 at 21:00; Stop 06/03/17 at 18:33; Status DC Clonazepam (KlonoPIN) 1 mg DAILY PO Last administered on 06/01/17 08:07; Start 05/30/17 at 09:00; Stop 06/01/17 at 12:25; Status DC Clonazepam (KlonoPIN) 0.75 mg QHS PO Last administered on 06/07/17at 19:56; Start 05/29/17 at 21:00; Stop 06/08/17 at 21:00; Status DC Donepezil HCl (Aricept) 10 mg QHS PO Last administered on 06/06/17at 20:22; Start 05/31/17 at 21:00; Stop 06/07/17 at 18:46; Status DC Clonazepam (KlonoPIN) 0.75 mg DAILY PO Last administered on 06/04/17at 07:52; Start 06/02/17 at 09:00; Stop 06/04/17 at 09:01; Status DC Clonazepam (KlonoPIN) 0.5 mg DAILY PO Last administered on 06/09/17at 09:25; Start 06/05/17 at 09:00; Stop 06/13/17 at 09:01 Clonazepam (KlonoPIN) 0.5 mg HS PO Last administered on 06/08/17at 20:31; Start 06/08/17 at 21:00; Stop 06/10/17 at 21:01 Ciprofloxacin (Cipro) 250 mg BID PO Last administered on 06/06/17at 08:20; Start 06/01/17 at 21:00; Stop 06/06/17 at 20:59; Status DC Gabapentin (Neurontin) 300 mg QID PO Last administered on 06/05/17at 19:42; Start 06/02/17 at 04:00; Stop 06/05/17 at 23:00; Status DC Gabapentin (Neurontin) 300 mg TID PO Last administered on 06/08/17 20:23; Start 06/06/17 at 04:00; Stop 06/08/17 at 23:00; Status DC Gabapentin (Neurontin) 300 mg BID PO ; Start 06/09/17 at 04:00; Stop 06/09/17 at 04:00; Status DC Lactobacillus Rhamnosus (Culturelle) 1 cap BID PO Last administered on at 09:23; Start 06/02/17 at 21:00 Nystatin (Mycostatin) 1 missael BID TP ; Start 06/02/17 at 21:00; Stop 06/02/17 at 21: 07; Status DC Nystatin (Mycostatin) 1 missael BID TP ; Start 06/02/17 at 21:00; Stop 06/03/17 at 07 :47; Status DC Nystatin (Nystop) 1 missael BID TP Last administered on 06/09/17at 09:00; Start 02/08 at 09:00 Lamotrigine (LaMICtal) 150 mg HS PO Last administered on 06/05/17at 19:40; Start 06/03/17 at 21:00; Stop 06/06/17 at 00:00; Status DC Duloxetine HCl (Cymbalta) 60 mg DAILY PO Last administered on 06/07/17at 09:02; Start 06/04/17 at 09:00; Stop 06/07/17 at 18:46; Status DC Lamotrigine (LaMICtal) 100 mg DAILY PO Last administered on 06/04/17at 07:54; Start 06/04/17 at 09:00; Stop 06/04/17 at 09:50; Status DC Lamotrigine (LaMICtal) 200 mg DAILY PO Last administered on 06/09/17at 09:23; Start 06/05/17 at 09:00 Lamotrigine (LaMICtal) 200 mg HS PO Last administered on 06/08/17at 20:23; Start 06/06/17 at 21:00 Lamotrigine (LaMICtal) 100 mg 1X ONCE PO Last administered on 06/04/17at 10:00 ; Start 06/04/17 at 10:00; Stop 06/04/17 at 10:01; Status DC Quetiapine Fumarate (SEROquel) 250 mg QHS PO Last administered on 06/08/17at 20: 24; Start 06/05/17 at 21:00 Duloxetine HCl (Cymbalta) 30 mg DAILY PO Last administered on 06/09/17at 09:23; Start 06/08/17 at 09:00; Stop 06/11/17 at 08:59 Gabapentin (Neurontin) 300 mg BID PO ; Start 06/10/17 at 09:00 Olanzapine (ZyPREXA ZYDIS) 2.5 mg PRN Q2HR PRN PO PSYCHOSIS; Start 06/09/17 at 18:45 Active Scripts Active Reported Vitamin D3 (Cholecalciferol (Vitamin D3)) 1,000 Unit Tablet 3,000 Unit PO QHS Systane 0.3-0.4% Eye Drops (Propylene Glycol/Peg 400) 15 Ml Drops 1 Drop EACHEYE QID Systane 0.3-0.4% Eye Drops (Propylene Glycol/Peg 400) 15 Ml Drops 1 Drop EACHEYE QIDPRN PRN Pain Reliever Plus Tablet (Aspirin/Acetaminophen/Caffeine) 1 Each Tablet 2 Each PO PRN PRN Ondansetron Hcl 4 Mg Tablet 4 Mg PO PRN Q6HRS PRN Nystatin 100,000 Unit/1 Ml Oral.susp 100,000 Unit PO Nystatin 15 Gm Cream..g. 1 Missael TP PRN BID PRN Miralax (Polyethylene Glycol 3350) 17 Gm Powd.pack 17 Gm PO HS Lidocaine Hcl 5 Ml Jel..ml. 5 Ml TOP PRN Q4HRS Ketoconazole 120 Ml Shampoo 1 Missael TP TWICE WEEKLY Ibuprofen 100 Mg/5 Ml Oral.susp 200 Mg PO PRN TID PRN Hydroxyzine Hcl 25 Mg Tablet 25 Mg PO PRN Q4HRS PRN Hydrocortisone 453.6 Gm Oint...g. 1 Missael TP PRN BID PRN Epa-Dha 720 Softgel ([place]-3/Dha/Epa/Fish Oil) 1 Each Capsule 1 Each PO QHS Donepezil Hcl 5 Mg Tablet 5 Mg PO QHS Saline Nasal [place] (Sodium Chloride) 30 Ml [place] 1 Spr NS PRN PRN Tylenol (Acetaminophen) 325 Mg Tablet 650 Mg PO PRN Q4HRS PRN Seroquel (Quetiapine Fumarate) 400 Mg Tablet 400 Mg PO HS Mirtazapine 15 Mg Tablet 15 Mg PO QHS Lamotrigine 150 Mg Tablet 150 Mg PO BID Fluticasone Propionate Nasal [place] (Fluticasone Propionate) 16 Gm [place].susp 2 [place] NS PRN BID PRN Effexor Xr (Venlafaxine Hcl) 150 Mg Cap.er.24h 150 Mg PO DAILY Multi Vitamin Daily (Multivitamin) 1 Each Tablet 1 Each PO DAILY Mucinex (Guaifenesin) 600 Mg Tablet.er 600 Mg PO PRN BID PRN Namenda (Memantine Hcl) 10 Mg Tablet 5 Mg PO DAILY Gabapentin 600 Mg Tablet 600 Mg PO QID Gabapentin 100 Mg Capsule 100 Mg PO PRN Q6HRS Clonazepam 1 Mg Tablet 1 Mg PO BID I have reviewed the current psychotropics carefully including drug interactions. Risk benefit ratio favors no change other than as noted in my dictated progress note. Diagnosis: Problems: (1) Major depression (2) Anxiety (3) Bipolar affective disorder, mixed (4) Anxiety disorder (5) Major depressive disorder, recurrent episode (6) Impulse control disorder BRIAN CHAPA MD Jun 09, 2017 19:56
[2017-06-09] MEDS: POLYETHYLENE GLYCOL 3350 17 GM PACKET. PO SCH (20:17)
[2017-06-09] MEDS: CHOLECALCIFEROL (VITAMIN D3) 1,000 UNIT TABLET PO SCH (20:18)
[2017-06-09] MEDS: OMEGA-3 FATTY ACIDS/FISH OIL 1,000 MG CAPSULE. PO SCH (20:18)
[2017-06-09] MEDS: QUEtiapine 100 MG TABLET. PO SCH (20:19)
[2017-06-10 06:50] VITALS: BP 147/87
[2017-06-10] MEDS: LACTOBACILLUS RHAMNOSUS GG 1 CAPSULE. PO SCH ×2 (07:58→20:35)
[2017-06-10] MEDS: PRENATAL MULTIVITAMIN TABLET. PO SCH (07:58)
[2017-06-10] MEDS: DULoxetine HCL 30 MG CAPSULE.DR PO SCH (07:58)
[2017-06-10] MEDS: lamoTRIgine 100 MG TABLET. PO SCH ×2 (07:59→20:37)
[2017-06-10] MEDS: GABAPENTIN 300 MG CAPSULE. PO SCH ×2 (08:01→20:37)
[2017-06-10] MEDS: clonazePAM 0.5 MG TABLET PO SCH ×2 (08:01→20:35)
[2017-06-10] MEDS: NYSTATIN TOPICAL POWDER 15GM BOTTLE. TP SCH ×2 (08:01→20:51)
--- NOTE | 2017-06-10 08:17 | PN ---
DATE: 06/07/2017 PSYCHIATRIC PROGRESS NOTE This is a late entry for date of service 06/07/2017, covers the elements not covered in my initial note of 06/07/2017. Met with the patient evening of 06/07/2017. The patient has been cooperative with physical therapy, occupational therapy, somewhat withdrawn, delusional at times, more alert. Family had provided me a psychiatric second consultation that they have done online with a psychiatrist and I have reviewed this several page report. As we are aware, they have reiterated the patient's history of lacunar infarcts and vascular dementia, possible normal pressure hydrocephalus and recommended a Neurology consult. We will consult Dr. Barajas for this, but possibly EEG. CT head was last done in 2013. We will repeat the CT head once again. Has a past history of overdose on 70 Ativan and a history of ECT treatment in the past. Consult also recommended [id number] the Aricept and Namenda and my plan was to do this anyway after we tapered the Neurontin, which we had initiated further taper earlier, but we will go ahead and discontinue them now as well. Given her bipolar history, another recommendation was to taper and stop the Cymbalta. She has had some depressive symptoms, but nevertheless Lamictal has been adjusted and we will taper and stop the Cymbalta as well and the Remeron. Klonopin is being tapered anyway. At one point, she was on 3200 mg of Neurontin in the past with little efficacy for bipolar disorder. REVIEW OF SYSTEMS: Ambulation impaired, in wheelchair. No CV, , pulmonary, eye system symptoms on review. MENTAL STATUS EXAM: Moderate. Speech has moderate latency, often responses monosyllabic. Abstraction fair, computation impaired, language function intact, attention span short. Mood and affect somewhat withdrawn. LABORATORY DATA: Reviewed. IMPRESSION: Bipolar 1 disorder, depressed with psychotic features, in partial remission versus bipolar 2 disorder, depressed with psychotic features, in partial remission; cognitive disorder, unspecified versus major neurocognitive disorder, early vascular with depression, delusion. Rest unchanged. PLAN: I have carefully reviewed all her psychotropics and made the changes noted above for reasons indicated. We will continue to reassess. BRIAN CHAPA MD DR: ANTONIO/gianfranco JOB#: [id number] / [id number]
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
[2017-06-10 18:06] VITALS: BP 121/52
[2017-06-10] MEDS: POLYETHYLENE GLYCOL 3350 17 GM PACKET. PO SCH (20:35)
[2017-06-10] MEDS: QUEtiapine 100 MG TABLET. PO SCH (20:36)
[2017-06-10] MEDS: OMEGA-3 FATTY ACIDS/FISH OIL 1,000 MG CAPSULE. PO SCH (20:36)
[2017-06-10] MEDS: CHOLECALCIFEROL (VITAMIN D3) 1,000 UNIT TABLET PO SCH (20:36)
--- NOTE | 2017-06-10 22:33 | PDOC ---
Exam Note: Greg Note: Please also refer to the separate dictated note~for this date of service dictated separately.~Patient seen individually. Discussed the patient with Nursing staff reviewed the chart.~Reviewed interim history and current functioning. Reviewed vital signs,~Labs/ Radiology~and current medications noted below. Continue current treatment with the changes noted in the dictated addendum note Assessment: Vital Signs: Vital Signs Date Time Temp Pulse Resp B/P (MAP) Pulse Ox O2 Delivery O2 Flow Rate FiO2 06/10/17 18:06 98.3 104 20 121/52 (75) 98 06/07/17 06:30 Room Air I&O Intake and Output 06/10/17 07:00 Intake Total 440 ml Balance 440 ml Intake Oral 440 ml # Bowel Movements 1 Current Medications: Meds: Current Medications Acetaminophen (Tylenol) 650 mg PRN Q6HRS PRN PO PAIN / TEMP; Start 05/19/17 at 16:15; Stop 05/19/17 at 18:42; Status DC Multi-Ingredient Ointment (Analgesic [place]) 1 missael PRN QID PRN TP MUSCLE PAIN; Start 05/19/17 at 16:15 Al Hydroxide/Mg Hydroxide (Mylanta Plus Xs) 15 ml PRN AFTMEALHC PRN PO DYSPEPSIA Last administered on 05/26/17at 20:02; Start 05/19/17 at 16:15 Magnesium Hydroxide (Milk Of Magnesia) 2,400 mg PRN QHS PRN PO CONSTIPATION; Start 05/19/17 at 16:15 Clonazepam (KlonoPIN) 1 mg BID PO Last administered on 05/29/17at 08:45; Start at 21:00; Stop 05/29/17 at 17:47; Status DC Donepezil HCl (Aricept) 5 mg QHS PO Last administered on 05/30/17at 20:24; Start 05/19/17 at 21:00; Stop 05/31/17 at 18:41; Status DC Lamotrigine (LaMICtal) 150 mg BID PO Last administered on 05/20/17at 20:17; Start 05/19/17 at 21:00; Stop 05/20/17 at 20:37; Status DC Memantine (Namenda) 5 mg DAILY PO Last administered on 06/07/17at 09:02; Start 05/20/17 at 09:00; Stop 06/07/17 at 18:46; Status DC Mirtazapine (Remeron) 15 mg QHS PO Last administered on 06/06/17at 20:36; Start 05/19/17 at 21:00; Stop 06/07/17 at 18:46; Status DC Quetiapine Fumarate (SEROquel) 400 mg QHS PO Last administered on 05/22/17at 19: 57; Start 05/19/17 at 21:00; Stop 05/23/17 at 18:44; Status DC Venlafaxine HCl (Effexor) 50 mg TID PO Last administered on 05/20/17at 14:00; Start 05/19/17 at 21:00; Stop 05/20/17 at 19:25; Status DC Acetaminophen (Tylenol) 650 mg PRN Q4HRS PRN PO PAIN Last administered on at 08:06; Start 05/19/17 at 18:15 Vitamin D (Vitamin D3) 3,000 unit QHS PO Last administered on 06/10/17at 20:36; Start 05/19/17 at 21:00 Fluticasone Propionate (Flonase) 2 spray PRN BID PRN NS ALLERGIES; Start at 18:15 Gabapentin (Neurontin) 100 mg PRN Q6HRS PRN PO ANXIETY; Start 05/19/17 at 18:15 ; Stop 05/20/17 at 19:25; Status DC Guaifenesin (Mucinex Er) 600 mg PRN BID PRN PO coughing; Start 05/19/17 at 18: 15 Ketoconazole (Nizoral 2% Shampoo) 1 missael QMONFR TP Last administered on at 08:07; Start 05/26/17 at 16:00 Lidocaine HCl (Uro-Jet) 5 missael PRN Q4HRS PRN TP PAIN; Start 05/19/17 at 18:15; Stop 05/19/17 at 20:05; Status DC Nystatin (Mycostatin) 1 missael PRN BID PRN TP itching; Start 05/19/17 at 18:15; Stop 06/02/17 at 11:13; Status DC Polyethylene Glycol (miraLAX) 17 gm HS PO Last administered on 06/10/17at 20:35 ; Start 05/19/17 at 21:00 Gabapentin (Neurontin) 600 mg QID PO Last administered on 05/20/17at 17:21; Start 05/19/17 at 21:00; Stop 05/20/17 at 19:25; Status DC Multivitamins/ Calcium (Thera-M Plus) 1 tab DAILY PO Last administered on at 07:59; Start 05/20/17 at 09:00; Stop 05/21/17 at 14:59; Status DC Fish Oil (Fish Oil) 1,000 mg QHS PO Last administered on 06/10/17at 20:36; Start 05/19/17 at 21:00 Ondansetron HCl (Zofran Odt) 4 mg PRN Q6HRS PRN PO NAUSEA; Start 05/19/17 at 19 :00 Non-Formulary Medication 1 drop QID EACHEYE ; Start 05/19/17 at 21:00; Stop at 21:00; Status DC Artificial Tears (Artificial Tears) 1 drop PRN QID PRN OU DRY EYE; Start at 19:00; Stop 05/20/17 at 14:59; Status DC Lidocaine HCl (Xylocaine 2% Topical 5gm Tube) 1 missael PRN Q4HRS PRN TP PAIN; Start 05/19/17 at 20:15; Stop 05/20/17 at 14:59; Status DC Lidocaine HCl (Xylocaine 2% Topical 5gm Tube) 1 missael PRN Q4HRS PRN TP PAIN Last administered on 05/23/17at 05:41; Start 05/20/17 at 14:59 Artificial Tears (Artificial Tears) 1 drop PRN QID PRN OU DRY EYE Last administered on 05/29/17at 08:44; Start 05/20/17 at 14:59 Gabapentin (Neurontin) 600 mg TID PO Last administered on 06/01/17at 19:24; Start 05/20/17 at 21:00; Stop 06/01/17 at 23:00; Status DC Duloxetine HCl (Cymbalta) 30 mg DAILY PO Last administered on 06/03/17at 07:42; Start 05/21/17 at 09:00; Stop 06/03/17 at 18:33; Status DC Lamotrigine (LaMICtal) 150 mg DAILY PO Last administered on 05/29/17 08:40; Start 05/21/17 at 09:00; Stop 05/29/17 at 17:46; Status DC Lamotrigine (LaMICtal) 200 mg HS PO Last administered on 05/28/17at 19:45; Start 05/20/17 at 21:00; Stop 05/29/17 at 17:46; Status DC Prenat Multivit/ [place]/Iron/Folic Ac (Multivitamin ) 1 tab DAILYBFRSUP PO Last administered on 06/10/17at 07:58; Start 05/21/17 at 17:00 Fosfomycin Tromethamine (Monurol) 3 gm 1X ONCE PO Last administered on at 15:00; Start 05/21/17 at 15:00; Stop 05/21/17 at 15:01; Status DC Quetiapine Fumarate (SEROquel) 300 mg QHS PO Last administered on 05/25/17at 20: 28; Start 05/23/17 at 21:00; Stop 05/26/17 at 17:47; Status DC Nystatin (Nystop) 15 missael STK-MED ONCE TP Last administered on 05/24/17at 17:40; Start 05/24/17 at 17:40; Stop 05/24/17 at 17:41; Status DC Sodium Chloride (Saline Mist Nasal) 1 missael PRN Q1HR PRN NS NASAL CONGESTION Last administered on 05/27/17at 20:38; Start 05/25/17 at 09:15 Quetiapine Fumarate (SEROquel) 200 mg QHS PO Last administered on 06/04/17at 20: 24; Start 05/26/17 at 21:00; Stop 06/05/17 at 17:39; Status DC Ketorolac Tromethamine (Acular) 1 drop Q8HRS OD Last administered on 06/03/17at 06:23; Start 05/29/17 at 14:00; Stop 06/03/17 at 13:59; Status DC Lamotrigine (LaMICtal) 200 mg BID PO Last administered on 06/03/17at 07:42; Start 05/29/17 at 21:00; Stop 06/03/17 at 18:33; Status DC Clonazepam (KlonoPIN) 1 mg DAILY PO Last administered on 06/01/17at 08:07; Start 05/30/17 at 09:00; Stop 06/01/17 at 12:25; Status DC Clonazepam (KlonoPIN) 0.75 mg QHS PO Last administered on 06/07/17at 19:56; Start 05/29/17 at 21:00; Stop 06/08/17 at 21:00; Status DC Donepezil HCl (Aricept) 10 mg QHS PO Last administered on 06/06/17at 20:22; Start 05/31/17 at 21:00; Stop 06/07/17 at 18:46; Status DC Clonazepam (KlonoPIN) 0.75 mg DAILY PO Last administered on 06/04/17at 07:52; Start 06/02/17 at 09:00; Stop 06/04/17 at 09:01; Status DC Clonazepam (KlonoPIN) 0.5 mg DAILY PO Last administered on 06/10/17at 08:01; Start 06/05/17 at 09:00; Stop 06/13/17 at 09:01 Clonazepam (KlonoPIN) 0.5 mg HS PO Last administered on 06/10/17at 20:35; Start 06/08/17 at 21:00; Stop 06/10/17 at 21:01; Status DC Ciprofloxacin (Cipro) 250 mg BID PO Last administered on 06/06/17at 08:20; Start 06/01/17 at 21:00; Stop 06/06/17 at 20:59; Status DC Gabapentin (Neurontin) 300 mg QID PO Last administered on 06/05/17at 19:42; Start 06/02/17 at 04:00; Stop 06/05/17 at 23:00; Status DC Gabapentin (Neurontin) 300 mg TID PO Last administered on 06/08/17at 20:23; Start 06/06/17 at 04:00; Stop 06/08/17 at 23:00; Status DC Gabapentin (Neurontin) 300 mg BID PO ; Start 06/09/17 at 04:00; Stop 06/09/17 at 04:00; Status DC Lactobacillus Rhamnosus (Culturelle) 1 cap BID PO Last administered on at 20:35; Start 06/02/17 at 21:00 Nystatin (Mycostatin) 1 missael BID TP ; Start 06/02/17 at 21:00; Stop 06/02/17 at 21: 07; Status DC Nystatin (Mycostatin) 1 missael BID TP ; Start 06/02/17 at 21:00; Stop 06/03/17 at 07 :47; Status DC Nystatin (Nystop) 1 missael BID TP Last administered on 06/10/17at 20:51; Start 02/08 at 09:00 Lamotrigine (LaMICtal) 150 mg HS PO Last administered on 06/05/17at 19:40; Start 06/03/17 at 21:00; Stop 06/06/17 at 00:00; Status DC Duloxetine HCl (Cymbalta) 60 mg DAILY PO Last administered on 06/07/17at 09:02; Start 06/04/17 at 09:00; Stop 06/07/17 at 18:46; Status DC Lamotrigine (LaMICtal) 100 mg DAILY PO Last administered on 06/04/17at 07:54; Start 06/04/17 at 09:00; Stop 06/04/17 at 09:50; Status DC Lamotrigine (LaMICtal) 200 mg DAILY PO Last administered on 06/10/17at 07:59; Start 06/05/17 at 09:00 Lamotrigine (LaMICtal) 200 mg HS PO Last administered on 06/10/17at 20:37; Start 06/06/17 at 21:00 Lamotrigine (LaMICtal) 100 mg 1X ONCE PO Last administered on 06/04/17at 10:00 ; Start 06/04/17 at 10:00; Stop 06/04/17 at 10:01; Status DC Quetiapine Fumarate (SEROquel) 250 mg QHS PO Last administered on 06/10/17at 20: 36; Start 06/05/17 at 21:00 Duloxetine HCl (Cymbalta) 30 mg DAILY PO Last administered on 06/10/17at 07:58; Start 06/08/17 at 09:00; Stop 06/11/17 at 08:59 Gabapentin (Neurontin) 300 mg BID PO Last administered on 06/10/17at 20:37; Start 06/10/17 at 09:00 Olanzapine (ZyPREXA ZYDIS) 2.5 mg PRN Q2HR PRN PO PSYCHOSIS; Start 06/09/17 at 18:45 Active Scripts Active Reported Vitamin D3 (Cholecalciferol (Vitamin D3)) 1,000 Unit Tablet 3,000 Unit PO QHS Systane 0.3-0.4% Eye Drops (Propylene Glycol/Peg 400) 15 Ml Drops 1 Drop EACHEYE QID Systane 0.3-0.4% Eye Drops (Propylene Glycol/Peg 400) 15 Ml Drops 1 Drop EACHEYE QIDPRN PRN Pain Reliever Plus Tablet (Aspirin/Acetaminophen/Caffeine) 1 Each Tablet 2 Each PO PRN PRN Ondansetron Hcl 4 Mg Tablet 4 Mg PO PRN Q6HRS PRN Nystatin 100,000 Unit/1 Ml Oral.susp 100,000 Unit PO Nystatin 15 Gm Cream..g. 1 Missael TP PRN BID PRN Miralax (Polyethylene Glycol 3350) 17 Gm Powd.pack 17 Gm PO HS Lidocaine Hcl 5 Ml Jel..ml. 5 Ml TOP PRN Q4HRS Ketoconazole 120 Ml Shampoo 1 Missael TP TWICE WEEKLY Ibuprofen 100 Mg/5 Ml Oral.susp 200 Mg PO PRN TID PRN Hydroxyzine Hcl 25 Mg Tablet 25 Mg PO PRN Q4HRS PRN Hydrocortisone 453.6 Gm Oint...g. 1 Missael TP PRN BID PRN Epa-Dha 720 Softgel ([place]-3/Dha/Epa/Fish Oil) 1 Each Capsule 1 Each PO QHS Donepezil Hcl 5 Mg Tablet 5 Mg PO QHS Saline Nasal [place] (Sodium Chloride) 30 Ml [place] 1 Spr NS PRN PRN Tylenol (Acetaminophen) 325 Mg Tablet 650 Mg PO PRN Q4HRS PRN Seroquel (Quetiapine Fumarate) 400 Mg Tablet 400 Mg PO HS Mirtazapine 15 Mg Tablet 15 Mg PO QHS Lamotrigine 150 Mg Tablet 150 Mg PO BID Fluticasone Propionate Nasal [place] (Fluticasone Propionate) 16 Gm [place].susp 2 [place] NS PRN BID PRN Effexor Xr (Venlafaxine Hcl) 150 Mg Cap.er.24h 150 Mg PO DAILY Multi Vitamin Daily (Multivitamin) 1 Each Tablet 1 Each PO DAILY Mucinex (Guaifenesin) 600 Mg Tablet.er 600 Mg PO PRN BID PRN Namenda (Memantine Hcl) 10 Mg Tablet 5 Mg PO DAILY Gabapentin 600 Mg Tablet 600 Mg PO QID Gabapentin 100 Mg Capsule 100 Mg PO PRN Q6HRS Clonazepam 1 Mg Tablet 1 Mg PO BID I have reviewed the current psychotropics carefully including drug interactions. Risk benefit ratio favors no change other than as noted in my dictated progress note. Diagnosis: Problems: (1) Major depression (2) Anxiety (3) Bipolar affective disorder, mixed (4) Anxiety disorder (5) Major depressive disorder, recurrent episode (6) Impulse control disorder BRIAN CHAPA MD Jun 10, 2017 22:32
[2017-06-11 06:43] VITALS: BP 119/68
[2017-06-11] MEDS: lamoTRIgine 100 MG TABLET. PO SCH ×2 (07:45→20:25)
[2017-06-11] MEDS: LACTOBACILLUS RHAMNOSUS GG 1 CAPSULE. PO SCH ×2 (07:45→20:23)
[2017-06-11] MEDS: PRENATAL MULTIVITAMIN TABLET. PO SCH (07:45)
[2017-06-11] MEDS: GABAPENTIN 300 MG CAPSULE. PO SCH ×2 (07:47→20:25)
[2017-06-11] MEDS: NYSTATIN TOPICAL POWDER 15GM BOTTLE. TP SCH ×2 (07:48→20:27)
[2017-06-11] MEDS: clonazePAM 0.5 MG TABLET PO SCH (07:48)
[2017-06-11 11:57] LABS: BASO % 1 % (0-3); EOS # 0.1 x10^3/uL (0.0-0.7); EOS % 3 % (0-3); HEMATOCRIT 36.1 % (36.0-47.0); HEMOGLOBIN 11.9 g/dL (12.0-15.5); LYMPH % 21 % (24-48); MEAN CORPUSCULAR HEMOGLOBIN 28 pg (25-35); MEAN CORPUSCULAR HGB CONC 33 g/dL (31-37); MEAN CORPUSCULAR VOLUME 84 fL (79-100); MONO # 0.5 x10^3/uL (0.0-1.1); MONO % 11 % (0-9); NEUT # 3.1 x10^3uL (1.8-7.7); NEUT % 64 % (31-73); PLATELET COUNT 267 x10^3/uL (140-400); RED BLOOD COUNT 4.32 x10^6/uL (3.50-5.40); RED CELL DISTRIBUTION WIDTH 16.3 % (11.5-14.5); WHITE BLOOD COUNT 4.9 x10^3/uL (4.0-11.0)
[2017-06-11 12:10] LABS: ALBUMIN 3.3 g/dL (3.4-5.0); CALCIUM 9.4 mg/dL (8.5-10.1); CREATININE 1.2 mg/dL (0.6-1.0); POTASSIUM 4.5 mmol/L (3.5-5.1); TOTAL BILIRUBIN 0.2 mg/dL (0.2-1.0); TOTAL PROTEIN 6.7 g/dL (6.4-8.2)
[2017-06-11 16:06] VITALS: BP 119/71
--- NOTE | 2017-06-11 20:15 | PDOC ---
Exam Note: Greg Note: Please also refer to the separate dictated note~for this date of service dictated separately.~Patient seen individually. Discussed the patient with Nursing staff reviewed the chart.~Reviewed interim history and current functioning. Reviewed vital signs,~Labs/ Radiology~and current medications noted below. Continue current treatment with the changes noted in the dictated addendum note Assessment: Vital Signs: Vital Signs Date Time Temp Pulse Resp B/P (MAP) Pulse Ox O2 Delivery O2 Flow Rate FiO2 06/11/17 16:06 98.0 94 20 119/71 (87) 99 06/07/17 06:30 Room Air I&O Intake and Output 06/11/17 07:00 Intake Total 1200 ml Balance 1200 ml Intake Oral 1200 ml # Bowel Movements 1 Labs: Laboratory Tests Test 06/11/17 11:34 White Blood Count 4.9 x10^3/uL (4.0-11.0) Red Blood Count 4.32 x10^6/uL (3.50-5.40) Hemoglobin 11.9 g/dL (12.0-15.5) L Hematocrit 36.1 % (36.0-47.0) Mean Corpuscular Volume 84 fL (79-100) Mean Corpuscular Hemoglobin 28 pg (25-35) Mean Corpuscular Hemoglobin Concent 33 g/dL (31-37) Red Cell Distribution Width 16.3 % (11.5-14.5) H Platelet Count 267 x10^3/uL (140-400) Neutrophils (%) (Auto) 64 % (31-73) Lymphocytes (%) (Auto) 21 % (24-48) L Monocytes (%) (Auto) 11 % (0-9) H Eosinophils (%) (Auto) 3 % (0-3) Basophils (%) (Auto) 1 % (0-3) Neutrophils # (Auto) 3.1 x10^3uL (1.8-7.7) Lymphocytes # (Auto) 1.0 x10^3/uL (1.0-4.8) Monocytes # (Auto) 0.5 x10^3/uL (0.0-1.1) Eosinophils # (Auto) 0.1 x10^3/uL (0.0-0.7) Basophils # (Auto) 0.0 x10^3/uL (0.0-0.2) Sodium Level 141 mmol/L (136-145) Potassium Level 4.5 mmol/L (3.5-5.1) Chloride Level 105 mmol/L (98-107) Carbon Dioxide Level 29 mmol/L (21-32) Anion Gap 7 (6-14) Blood Urea Nitrogen 18 mg/dL (7-20) Creatinine 1.2 mg/dL (0.6-1.0) H Estimated GFR (Cockcroft-Gault) 44.0 BUN/Creatinine Ratio 15 (6-20) Glucose Level 98 mg/dL (70-99) Calcium Level 9.4 mg/dL (8.5-10.1) Total Bilirubin 0.2 mg/dL (0.2-1.0) Aspartate Amino Transferase (AST) 24 U/L (15-37) Alanine Aminotransferase (ALT) 23 U/L (14-59) Alkaline Phosphatase 98 U/L (46-116) Total Protein 6.7 g/dL (6.4-8.2) Albumin 3.3 g/dL (3.4-5.0) L Albumin/Globulin Ratio 1.0 (1.0-1.7) Current Medications: Meds: Current Medications Acetaminophen (Tylenol) 650 mg PRN Q6HRS PRN PO PAIN / TEMP; Start 05/19/17 at 16:15; Stop 05/19/17 at 18:42; Status DC Multi-Ingredient Ointment (Analgesic [place]) 1 missael PRN QID PRN TP MUSCLE PAIN; Start 05/19/17 at 16:15 Al Hydroxide/Mg Hydroxide (Mylanta Plus Xs) 15 ml PRN AFTMEALHC PRN PO DYSPEPSIA Last administered on 05/26/17at 20:02; Start 05/19/17 at 16:15 Magnesium Hydroxide (Milk Of Magnesia) 2,400 mg PRN QHS PRN PO CONSTIPATION; Start 05/19/17 at 16:15 Clonazepam (KlonoPIN) 1 mg BID PO Last administered on 05/29/17at 08:45; Start at 21:00; Stop 05/29/17 at 17:47; Status DC Donepezil HCl (Aricept) 5 mg QHS PO Last administered on 05/30/17at 20:24; Start 05/19/17 at 21:00; Stop 05/31/17 at 18:41; Status DC Lamotrigine (LaMICtal) 150 mg BID PO Last administered on 05/20/17at 20:17; Start 05/19/17 at 21:00; Stop 05/20/17 at 20:37; Status DC Memantine (Namenda) 5 mg DAILY PO Last administered on 06/07/17at 09:02; Start 05/20/17 at 09:00; Stop 06/07/17 at 18:46; Status DC Mirtazapine (Remeron) 15 mg QHS PO Last administered on 06/06/17at 20:36; Start 05/19/17 at 21:00; Stop 06/07/17 at 18:46; Status DC Quetiapine Fumarate (SEROquel) 400 mg QHS PO Last administered on 05/22/17at 19: 57; Start 05/19/17 at 21:00; Stop 05/23/17 at 18:44; Status DC Venlafaxine HCl (Effexor) 50 mg TID PO Last administered on 05/20/17at 14:00; Start 05/19/17 at 21:00; Stop 05/20/17 at 19:25; Status DC Acetaminophen (Tylenol) 650 mg PRN Q4HRS PRN PO PAIN Last administered on at 08:06; Start 05/19/17 at 18:15 Vitamin D (Vitamin D3) 3,000 unit QHS PO Last administered on 06/10/17at 20:36; Start 05/19/17 at 21:00 Fluticasone Propionate (Flonase) 2 spray PRN BID PRN NS ALLERGIES; Start at 18:15 Gabapentin (Neurontin) 100 mg PRN Q6HRS PRN PO ANXIETY; Start 05/19/17 at 18:15 ; Stop 05/20/17 at 19:25; Status DC Guaifenesin (Mucinex Er) 600 mg PRN BID PRN PO coughing; Start 05/19/17 at 18: 15 Ketoconazole (Nizoral 2% Shampoo) 1 missael QMONFR TP Last administered on at 08:07; Start 05/26/17 at 16:00 Lidocaine HCl (Uro-Jet) 5 missael PRN Q4HRS PRN TP PAIN; Start 05/19/17 at 18:15; Stop 05/19/17 at 20:05; Status DC Nystatin (Mycostatin) 1 missael PRN BID PRN TP itching; Start 05/19/17 at 18:15; Stop 06/02/17 at 11:13; Status DC Polyethylene Glycol (miraLAX) 17 gm HS PO Last administered on 06/10/17at 20:35 ; Start 05/19/17 at 21:00 Gabapentin (Neurontin) 600 mg QID PO Last administered on 05/20/17at 17:21; Start 05/19/17 at 21:00; Stop 05/20/17 at 19:25; Status DC Multivitamins/ Calcium (Thera-M Plus) 1 tab DAILY PO Last administered on at 07:59; Start 05/20/17 at 09:00; Stop 05/21/17 at 14:59; Status DC Fish Oil (Fish Oil) 1,000 mg QHS PO Last administered on 06/10/17at 20:36; Start 05/19/17 at 21:00 Ondansetron HCl (Zofran Odt) 4 mg PRN Q6HRS PRN PO NAUSEA; Start 05/19/17 at 19 :00 Non-Formulary Medication 1 drop QID EACHEYE ; Start 05/19/17 at 21:00; Stop at 21:00; Status DC Artificial Tears (Artificial Tears) 1 drop PRN QID PRN OU DRY EYE; Start at 19:00; Stop 05/20/17 at 14:59; Status DC Lidocaine HCl (Xylocaine 2% Topical 5gm Tube) 1 missael PRN Q4HRS PRN TP PAIN; Start 05/19/17 at 20:15; Stop 05/20/17 at 14:59; Status DC Lidocaine HCl (Xylocaine 2% Topical 5gm Tube) 1 missael PRN Q4HRS PRN TP PAIN Last administered on 05/23/17at 05:41; Start 05/20/17 at 14:59 Artificial Tears (Artificial Tears) 1 drop PRN QID PRN OU DRY EYE Last administered on 05/29/17at 08:44; Start 05/20/17 at 14:59 Gabapentin (Neurontin) 600 mg TID PO Last administered on 06/01/17at 19:24; Start 05/20/17 at 21:00; Stop 06/01/17 at 23:00; Status DC Duloxetine HCl (Cymbalta) 30 mg DAILY PO Last administered on 06/03/17at 07:42; Start 05/21/17 at 09:00; Stop 06/03/17 at 18:33; Status DC Lamotrigine (LaMICtal) 150 mg DAILY PO Last administered on 05/29/17at 08:40; Start 05/21/17 at 09:00; Stop 05/29/17 at 17:46; Status DC Lamotrigine (LaMICtal) 200 mg HS PO Last administered on 05/28/17at 19:45; Start 05/20/17 at 21:00; Stop 05/29/17 at 17:46; Status DC Prenat Multivit/ [place]/Iron/Folic Ac (Multivitamin ) 1 tab DAILYBFRSUP PO Last administered on 06/11/17at 07:45; Start 05/21/17 at 17:00 Fosfomycin Tromethamine (Monurol) 3 gm 1X ONCE PO Last administered on at 15:00; Start 05/21/17 at 15:00; Stop 05/21/17 at 15:01; Status DC Quetiapine Fumarate (SEROquel) 300 mg QHS PO Last administered on 05/25/17at 20: 28; Start 05/23/17 at 21:00; Stop 05/26/17 at 17:47; Status DC Nystatin (Nystop) 15 missael STK-MED ONCE TP Last administered on 05/24/17at 17:40; Start 05/24/17 at 17:40; Stop 05/24/17 at 17:41; Status DC Sodium Chloride (Saline Mist Nasal) 1 missael PRN Q1HR PRN NS NASAL CONGESTION Last administered on 05/27/17at 20:38; Start 05/25/17 at 09:15 Quetiapine Fumarate (SEROquel) 200 mg QHS PO Last administered on 06/04/17at 20: 24; Start 05/26/17 at 21:00; Stop 06/05/17 at 17:39; Status DC Ketorolac Tromethamine (Acular) 1 drop Q8HRS OD Last administered on 06/03/17 06:23; Start 05/29/17 at 14:00; Stop 06/03/17 at 13:59; Status DC Lamotrigine (LaMICtal) 200 mg BID PO Last administered on 06/03/17at 07:42; Start 05/29/17 at 21:00; Stop 06/03/17 at 18:33; Status DC Clonazepam (KlonoPIN) 1 mg DAILY PO Last administered on 06/01/17 08:07; Start 05/30/17 at 09:00; Stop 06/01/17 at 12:25; Status DC Clonazepam (KlonoPIN) 0.75 mg QHS PO Last administered on 06/07/17 19:56; Start 05/29/17 at 21:00; Stop 06/08/17 at 21:00; Status DC Donepezil HCl (Aricept) 10 mg QHS PO Last administered on 06/06/17 20:22; Start 05/31/17 at 21:00; Stop 06/07/17 at 18:46; Status DC Clonazepam (KlonoPIN) 0.75 mg DAILY PO Last administered on 06/04/17at 07:52; Start 06/02/17 at 09:00; Stop 06/04/17 at 09:01; Status DC Clonazepam (KlonoPIN) 0.5 mg DAILY PO Last administered on 06/11/17 07:48; Start 06/05/17 at 09:00; Stop 06/13/17 at 09:01 Clonazepam (KlonoPIN) 0.5 mg HS PO Last administered on 06/10/17at 20:35; Start 06/08/17 at 21:00; Stop 06/10/17 at 21:01; Status DC Ciprofloxacin (Cipro) 250 mg BID PO Last administered on 06/06/17 08:20; Start 06/01/17 at 21:00; Stop 06/06/17 at 20:59; Status DC Gabapentin (Neurontin) 300 mg QID PO Last administered on 06/05/17at 19:42; Start 06/02/17 at 04:00; Stop 06/05/17 at 23:00; Status DC Gabapentin (Neurontin) 300 mg TID PO Last administered on 06/08/17at 20:23; Start 06/06/17 at 04:00; Stop 06/08/17 at 23:00; Status DC Gabapentin (Neurontin) 300 mg BID PO ; Start 06/09/17 at 04:00; Stop 06/09/17 at 04:00; Status DC Lactobacillus Rhamnosus (Culturelle) 1 cap BID PO Last administered on at 07:45; Start 06/02/17 at 21:00 Nystatin (Mycostatin) 1 missael BID TP ; Start 06/02/17 at 21:00; Stop 06/02/17 at 21: 07; Status DC Nystatin (Mycostatin) 1 missael BID TP ; Start 06/02/17 at 21:00; Stop 06/03/17 at 07 :47; Status DC Nystatin (Nystop) 1 missael BID TP Last administered on 06/11/17at 07:48; Start 02/08 at 09:00 Lamotrigine (LaMICtal) 150 mg HS PO Last administered on 06/05/17at 19:40; Start 06/03/17 at 21:00; Stop 06/06/17 at 00:00; Status DC Duloxetine HCl (Cymbalta) 60 mg DAILY PO Last administered on 06/07/17at 09:02; Start 06/04/17 at 09:00; Stop 06/07/17 at 18:46; Status DC Lamotrigine (LaMICtal) 100 mg DAILY PO Last administered on 06/04/17at 07:54; Start 06/04/17 at 09:00; Stop 06/04/17 at 09:50; Status DC Lamotrigine (LaMICtal) 200 mg DAILY PO Last administered on 06/11/17at 07:45; Start 06/05/17 at 09:00 Lamotrigine (LaMICtal) 200 mg HS PO Last administered on 06/10/17at 20:37; Start 06/06/17 at 21:00 Lamotrigine (LaMICtal) 100 mg 1X ONCE PO Last administered on 06/04/17at 10:00 ; Start 06/04/17 at 10:00; Stop 06/04/17 at 10:01; Status DC Quetiapine Fumarate (SEROquel) 250 mg QHS PO Last administered on 06/10/17at 20: 36; Start 06/05/17 at 21:00 Duloxetine HCl (Cymbalta) 30 mg DAILY PO Last administered on 06/10/17at 07:58; Start 06/08/17 at 09:00; Stop 06/11/17 at 08:59; Status DC Gabapentin (Neurontin) 300 mg BID PO Last administered on 06/11/17at 07:47; Start 06/10/17 at 09:00 Olanzapine (ZyPREXA ZYDIS) 2.5 mg PRN Q2HR PRN PO PSYCHOSIS; Start 06/09/17 at 18:45 Active Scripts Active Reported Vitamin D3 (Cholecalciferol (Vitamin D3)) 1,000 Unit Tablet 3,000 Unit PO QHS Systane 0.3-0.4% Eye Drops (Propylene Glycol/Peg 400) 15 Ml Drops 1 Drop EACHEYE QID Systane 0.3-0.4% Eye Drops (Propylene Glycol/Peg 400) 15 Ml Drops 1 Drop EACHEYE QIDPRN PRN Pain Reliever Plus Tablet (Aspirin/Acetaminophen/Caffeine) 1 Each Tablet 2 Each PO PRN PRN Ondansetron Hcl 4 Mg Tablet 4 Mg PO PRN Q6HRS PRN Nystatin 100,000 Unit/1 Ml Oral.susp 100,000 Unit PO Nystatin 15 Gm Cream..g. 1 Missael TP PRN BID PRN Miralax (Polyethylene Glycol 3350) 17 Gm Powd.pack 17 Gm PO HS Lidocaine Hcl 5 Ml Jel..ml. 5 Ml TOP PRN Q4HRS Ketoconazole 120 Ml Shampoo 1 Missael TP TWICE WEEKLY Ibuprofen 100 Mg/5 Ml Oral.susp 200 Mg PO PRN TID PRN Hydroxyzine Hcl 25 Mg Tablet 25 Mg PO PRN Q4HRS PRN Hydrocortisone 453.6 Gm Oint...g. 1 Missael TP PRN BID PRN Epa-Dha 720 Softgel ([place]-3/Dha/Epa/Fish Oil) 1 Each Capsule 1 Each PO QHS Donepezil Hcl 5 Mg Tablet 5 Mg PO QHS Saline Nasal Hadley (Sodium Chloride) 30 Ml Hadley 1 Spr NS PRN PRN Tylenol (Acetaminophen) 325 Mg Tablet 650 Mg PO PRN Q4HRS PRN Seroquel (Quetiapine Fumarate) 400 Mg Tablet 400 Mg PO HS Mirtazapine 15 Mg Tablet 15 Mg PO QHS Lamotrigine 150 Mg Tablet 150 Mg PO BID Fluticasone Propionate Nasal [place]ley (Fluticasone Propionate) 16 Gm Hadley.susp 2 Hadley NS PRN BID PRN Effexor Xr (Venlafaxine Hcl) 150 Mg Cap.er.24h 150 Mg PO DAILY Multi Vitamin Daily (Multivitamin) 1 Each Tablet 1 Each PO DAILY Mucinex (Guaifenesin) 600 Mg Tablet.er 600 Mg PO PRN BID PRN Namenda (Memantine Hcl) 10 Mg Tablet 5 Mg PO DAILY Gabapentin 600 Mg Tablet 600 Mg PO QID Gabapentin 100 Mg Capsule 100 Mg PO PRN Q6HRS Clonazepam 1 Mg Tablet 1 Mg PO BID I have reviewed the current psychotropics carefully including drug interactions. Risk benefit ratio favors no change other than as noted in my dictated progress note. Diagnosis: Problems: (1) Major depression (2) Anxiety (3) Bipolar affective disorder, mixed (4) Anxiety disorder (5) Major depressive disorder, recurrent episode (6) Impulse control disorder BRIAN CHAPA MD Jun 11, 2017 20:15
[2017-06-11] MEDS: CHOLECALCIFEROL (VITAMIN D3) 1,000 UNIT TABLET PO SCH (20:23)
[2017-06-11] MEDS: OMEGA-3 FATTY ACIDS/FISH OIL 1,000 MG CAPSULE. PO SCH (20:23)
[2017-06-11] MEDS: QUEtiapine 100 MG TABLET. PO SCH (20:24)
[2017-06-11] MEDS: POLYETHYLENE GLYCOL 3350 17 GM PACKET. PO SCH (20:28)
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
[2017-06-12 06:17] VITALS: BP 134/67
[2017-06-12] MEDS: GABAPENTIN 300 MG CAPSULE. PO SCH ×2 (09:17→19:31)
[2017-06-12] MEDS: LACTOBACILLUS RHAMNOSUS GG 1 CAPSULE. PO SCH ×2 (09:17→19:31)
[2017-06-12] MEDS: lamoTRIgine 100 MG TABLET. PO SCH ×2 (09:17→19:31)
[2017-06-12] MEDS: NYSTATIN TOPICAL POWDER 15GM BOTTLE. TP SCH ×2 (09:18→19:44)
[2017-06-12] MEDS: clonazePAM 0.5 MG TABLET PO SCH (09:18)
[2017-06-12] MEDS: ACETAMINOPHEN 325 MG TABLET PO PRN ×2 (09:19→19:43)
[2017-06-12 16:03] VITALS: BP 124/82
[2017-06-12] MEDS: PRENATAL MULTIVITAMIN TABLET. PO SCH (16:53)
[2017-06-12] MEDS: KETOCONAZOLE 2% SHAMPOO 120ML BOTTLE. TP SCH (16:54)
[2017-06-12] MEDS: OMEGA-3 FATTY ACIDS/FISH OIL 1,000 MG CAPSULE. PO SCH (19:31)
[2017-06-12] MEDS: CHOLECALCIFEROL (VITAMIN D3) 1,000 UNIT TABLET PO SCH (19:31)
[2017-06-12] MEDS: POLYETHYLENE GLYCOL 3350 17 GM PACKET. PO SCH (19:31)
[2017-06-12] MEDS: QUEtiapine 100 MG TABLET. PO SCH (19:32)
--- NOTE | 2017-06-12 20:03 | PDOC ---
Exam Note: Greg Note: Please also refer to the separate dictated note~for this date of service dictated separately.~Patient seen individually. Discussed the patient with Nursing staff reviewed the chart.~Reviewed interim history and current functioning. Reviewed vital signs,~Labs/ Radiology~and current medications noted below. Continue current treatment with the changes noted in the dictated addendum note Assessment: Vital Signs: Vital Signs Date Time Temp Pulse Resp B/P (MAP) Pulse Ox O2 Delivery O2 Flow Rate FiO2 06/12/17 16:03 97.6 91 20 124/82 (96) 97 06/07/17 06:30 Room Air I&O Intake and Output 06/12/17 07:00 Intake Total 1245 ml Balance 1245 ml Intake Oral 1245 ml # Bowel Movements 1 Current Medications: Meds: Current Medications Acetaminophen (Tylenol) 650 mg PRN Q6HRS PRN PO PAIN / TEMP; Start 05/19/17 at 16:15; Stop 05/19/17 at 18:42; Status DC Multi-Ingredient Ointment (Analgesic [place]) 1 missael PRN QID PRN TP MUSCLE PAIN; Start 05/19/17 at 16:15 Al Hydroxide/Mg Hydroxide (Mylanta Plus Xs) 15 ml PRN AFTMEALHC PRN PO DYSPEPSIA Last administered on 05/26/17at 20:02; Start 05/19/17 at 16:15 Magnesium Hydroxide (Milk Of Magnesia) 2,400 mg PRN QHS PRN PO CONSTIPATION; Start 05/19/17 at 16:15 Clonazepam (KlonoPIN) 1 mg BID PO Last administered on 05/29/17at 08:45; Start at 21:00; Stop 05/29/17 at 17:47; Status DC Donepezil HCl (Aricept) 5 mg QHS PO Last administered on 05/30/17at 20:24; Start 05/19/17 at 21:00; Stop 05/31/17 at 18:41; Status DC Lamotrigine (LaMICtal) 150 mg BID PO Last administered on 05/20/17at 20:17; Start 05/19/17 at 21:00; Stop 05/20/17 at 20:37; Status DC Memantine (Namenda) 5 mg DAILY PO Last administered on 06/07/17at 09:02; Start 05/20/17 at 09:00; Stop 06/07/17 at 18:46; Status DC Mirtazapine (Remeron) 15 mg QHS PO Last administered on 06/06/17at 20:36; Start 05/19/17 at 21:00; Stop 06/07/17 at 18:46; Status DC Quetiapine Fumarate (SEROquel) 400 mg QHS PO Last administered on 05/22/17at 19: 57; Start 05/19/17 at 21:00; Stop 05/23/17 at 18:44; Status DC Venlafaxine HCl (Effexor) 50 mg TID PO Last administered on 05/20/17at 14:00; Start 05/19/17 at 21:00; Stop 05/20/17 at 19:25; Status DC Acetaminophen (Tylenol) 650 mg PRN Q4HRS PRN PO PAIN Last administered on at 19:43; Start 05/19/17 at 18:15 Vitamin D (Vitamin D3) 3,000 unit QHS PO Last administered on 06/12/17at 19:31; Start 05/19/17 at 21:00 Fluticasone Propionate (Flonase) 2 spray PRN BID PRN NS ALLERGIES; Start at 18:15 Gabapentin (Neurontin) 100 mg PRN Q6HRS PRN PO ANXIETY; Start 05/19/17 at 18:15 ; Stop 05/20/17 at 19:25; Status DC Guaifenesin (Mucinex Er) 600 mg PRN BID PRN PO coughing; Start 05/19/17 at 18: 15 Ketoconazole (Nizoral 2% Shampoo) 1 missael QMONFR TP Last administered on at 16:54; Start 05/26/17 at 16:00 Lidocaine HCl (Uro-Jet) 5 missael PRN Q4HRS PRN TP PAIN; Start 05/19/17 at 18:15; Stop 05/19/17 at 20:05; Status DC Nystatin (Mycostatin) 1 missael PRN BID PRN TP itching; Start 05/19/17 at 18:15; Stop 06/02/17 at 11:13; Status DC Polyethylene Glycol (miraLAX) 17 gm HS PO Last administered on 06/12/17at 19:31 ; Start 05/19/17 at 21:00 Gabapentin (Neurontin) 600 mg QID PO Last administered on 05/20/17at 17:21; Start 05/19/17 at 21:00; Stop 05/20/17 at 19:25; Status DC Multivitamins/ Calcium (Thera-M Plus) 1 tab DAILY PO Last administered on at 07:59; Start 05/20/17 at 09:00; Stop 05/21/17 at 14:59; Status DC Fish Oil (Fish Oil) 1,000 mg QHS PO Last administered on 06/12/17at 19:31; Start 05/19/17 at 21:00 Ondansetron HCl (Zofran Odt) 4 mg PRN Q6HRS PRN PO NAUSEA; Start 05/19/17 at 19 :00 Non-Formulary Medication 1 drop QID EACHEYE ; Start 05/19/17 at 21:00; Stop at 21:00; Status DC Artificial Tears (Artificial Tears) 1 drop PRN QID PRN OU DRY EYE; Start at 19:00; Stop 05/20/17 at 14:59; Status DC Lidocaine HCl (Xylocaine 2% Topical 5gm Tube) 1 missael PRN Q4HRS PRN TP PAIN; Start 05/19/17 at 20:15; Stop 05/20/17 at 14:59; Status DC Lidocaine HCl (Xylocaine 2% Topical 5gm Tube) 1 missael PRN Q4HRS PRN TP PAIN Last administered on 05/23/17at 05:41; Start 05/20/17 at 14:59 Artificial Tears (Artificial Tears) 1 drop PRN QID PRN OU DRY EYE Last administered on 05/29/17at 08:44; Start 05/20/17 at 14:59 Gabapentin (Neurontin) 600 mg TID PO Last administered on 06/01/17at 19:24; Start 05/20/17 at 21:00; Stop 06/01/17 at 23:00; Status DC Duloxetine HCl (Cymbalta) 30 mg DAILY PO Last administered on 06/03/17at 07:42; Start 05/21/17 at 09:00; Stop 06/03/17 at 18:33; Status DC Lamotrigine (LaMICtal) 150 mg DAILY PO Last administered on 05/29/17at 08:40; Start 05/21/17 at 09:00; Stop 05/29/17 at 17:46; Status DC Lamotrigine (LaMICtal) 200 mg HS PO Last administered on 05/28/17at 19:45; Start 05/20/17 at 21:00; Stop 05/29/17 at 17:46; Status DC Prenat Multivit/ Medical Reception Specialist/Iron/Folic Ac (Multivitamin ) 1 tab DAILYBFRSUP PO Last administered on 06/12/17at 16:53; Start 05/21/17 at 17:00 Fosfomycin Tromethamine (Monurol) 3 gm 1X ONCE PO Last administered on at 15:00; Start 05/21/17 at 15:00; Stop 05/21/17 at 15:01; Status DC Quetiapine Fumarate (SEROquel) 300 mg QHS PO Last administered on 05/25/17at 20: 28; Start 05/23/17 at 21:00; Stop 05/26/17 at 17:47; Status DC Nystatin (Nystop) 15 missael STK-MED ONCE TP Last administered on 05/24/17at 17:40; Start 05/24/17 at 17:40; Stop 05/24/17 at 17:41; Status DC Sodium Chloride (Saline Mist Nasal) 1 missael PRN Q1HR PRN NS NASAL CONGESTION Last administered on 05/27/17at 20:38; Start 05/25/17 at 09:15 Quetiapine Fumarate (SEROquel) 200 mg QHS PO Last administered on 06/04/17at 20: 24; Start 05/26/17 at 21:00; Stop 06/05/17 at 17:39; Status DC Ketorolac Tromethamine (Acular) 1 drop Q8HRS OD Last administered on 06/03/17at 06:23; Start 05/29/17 at 14:00; Stop 06/03/17 at 13:59; Status DC Lamotrigine (LaMICtal) 200 mg BID PO Last administered on 06/03/17at 07:42; Start 05/29/17 at 21:00; Stop 06/03/17 at 18:33; Status DC Clonazepam (KlonoPIN) 1 mg DAILY PO Last administered on 06/01/17at 08:07; Start 05/30/17 at 09:00; Stop 06/01/17 at 12:25; Status DC Clonazepam (KlonoPIN) 0.75 mg QHS PO Last administered on 06/07/17at 19:56; Start 05/29/17 at 21:00; Stop 06/08/17 at 21:00; Status DC Donepezil HCl (Aricept) 10 mg QHS PO Last administered on 06/06/17at 20:22; Start 05/31/17 at 21:00; Stop 06/07/17 at 18:46; Status DC Clonazepam (KlonoPIN) 0.75 mg DAILY PO Last administered on 06/04/17at 07:52; Start 06/02/17 at 09:00; Stop 06/04/17 at 09:01; Status DC Clonazepam (KlonoPIN) 0.5 mg DAILY PO Last administered on 06/12/17at 09:18; Start 06/05/17 at 09:00; Stop 06/13/17 at 09:01 Clonazepam (KlonoPIN) 0.5 mg HS PO Last administered on 06/10/17at 20:35; Start 06/08/17 at 21:00; Stop 06/10/17 at 21:01; Status DC Ciprofloxacin (Cipro) 250 mg BID PO Last administered on 06/06/17 08:20; Start 06/01/17 at 21:00; Stop 06/06/17 at 20:59; Status DC Gabapentin (Neurontin) 300 mg QID PO Last administered on 06/05/17at 19:42; Start 06/02/17 at 04:00; Stop 06/05/17 at 23:00; Status DC Gabapentin (Neurontin) 300 mg TID PO Last administered on 06/08/17at 20:23; Start 06/06/17 at 04:00; Stop 06/08/17 at 23:00; Status DC Gabapentin (Neurontin) 300 mg BID PO ; Start 06/09/17 at 04:00; Stop 06/09/17 at 04:00; Status DC Lactobacillus Rhamnosus (Culturelle) 1 cap BID PO Last administered on at 19:31; Start 06/02/17 at 21:00 Nystatin (Mycostatin) 1 missael BID TP ; Start 06/02/17 at 21:00; Stop 06/02/17 at 21: 07; Status DC Nystatin (Mycostatin) 1 missael BID TP ; Start 06/02/17 at 21:00; Stop 06/03/17 at 07 :47; Status DC Nystatin (Nystop) 1 missael BID TP Last administered on 06/12/17at 19:44; Start 02/08 at 09:00 Lamotrigine (LaMICtal) 150 mg HS PO Last administered on 06/05/17at 19:40; Start 06/03/17 at 21:00; Stop 06/06/17 at 00:00; Status DC Duloxetine HCl (Cymbalta) 60 mg DAILY PO Last administered on 06/07/17at 09:02; Start 06/04/17 at 09:00; Stop 06/07/17 at 18:46; Status DC Lamotrigine (LaMICtal) 100 mg DAILY PO Last administered on 06/04/17at 07:54; Start 06/04/17 at 09:00; Stop 06/04/17 at 09:50; Status DC Lamotrigine (LaMICtal) 200 mg DAILY PO Last administered on 06/12/17at 09:17; Start 06/05/17 at 09:00 Lamotrigine (LaMICtal) 200 mg HS PO Last administered on 06/12/17at 19:31; Start 06/06/17 at 21:00 Lamotrigine (LaMICtal) 100 mg 1X ONCE PO Last administered on 06/04/17at 10:00 ; Start 06/04/17 at 10:00; Stop 06/04/17 at 10:01; Status DC Quetiapine Fumarate (SEROquel) 250 mg QHS PO Last administered on 06/12/17at 19: 32; Start 06/05/17 at 21:00 Duloxetine HCl (Cymbalta) 30 mg DAILY PO Last administered on 06/10/17at 07:58; Start 06/08/17 at 09:00; Stop 06/11/17 at 08:59; Status DC Gabapentin (Neurontin) 300 mg BID PO Last administered on 06/12/17at 19:31; Start 06/10/17 at 09:00 Olanzapine (ZyPREXA ZYDIS) 2.5 mg PRN Q2HR PRN PO PSYCHOSIS; Start 06/09/17 at 18:45 Active Scripts Active Reported Vitamin D3 (Cholecalciferol (Vitamin D3)) 1,000 Unit Tablet 3,000 Unit PO QHS Systane 0.3-0.4% Eye Drops (Propylene Glycol/Peg 400) 15 Ml Drops 1 Drop EACHEYE QID Systane 0.3-0.4% Eye Drops (Propylene Glycol/Peg 400) 15 Ml Drops 1 Drop EACHEYE QIDPRN PRN Pain Reliever Plus Tablet (Aspirin/Acetaminophen/Caffeine) 1 Each Tablet 2 Each PO PRN PRN Ondansetron Hcl 4 Mg Tablet 4 Mg PO PRN Q6HRS PRN Nystatin 100,000 Unit/1 Ml Oral.susp 100,000 Unit PO Nystatin 15 Gm Cream..g. 1 Missael TP PRN BID PRN Miralax (Polyethylene Glycol 3350) 17 Gm Powd.pack 17 Gm PO HS Lidocaine Hcl 5 Ml Jel..ml. 5 Ml TOP PRN Q4HRS Ketoconazole 120 Ml Shampoo 1 Missael TP TWICE WEEKLY Ibuprofen 100 Mg/5 Ml Oral.susp 200 Mg PO PRN TID PRN Hydroxyzine Hcl 25 Mg Tablet 25 Mg PO PRN Q4HRS PRN Hydrocortisone 453.6 Gm Oint...g. 1 Missael TP PRN BID PRN Epa-Dha 720 Softgel ([place]-3/Dha/Epa/Fish Oil) 1 Each Capsule 1 Each PO QHS Donepezil Hcl 5 Mg Tablet 5 Mg PO QHS Saline Nasal [place] (Sodium Chloride) 30 Ml [place] 1 Spr NS PRN PRN Tylenol (Acetaminophen) 325 Mg Tablet 650 Mg PO PRN Q4HRS PRN Seroquel (Quetiapine Fumarate) 400 Mg Tablet 400 Mg PO HS Mirtazapine 15 Mg Tablet 15 Mg PO QHS Lamotrigine 150 Mg Tablet 150 Mg PO BID Fluticasone Propionate Nasal [place] (Fluticasone Propionate) 16 Gm [place].susp 2 [place] NS PRN BID PRN Effexor Xr (Venlafaxine Hcl) 150 Mg Cap.er.24h 150 Mg PO DAILY Multi Vitamin Daily (Multivitamin) 1 Each Tablet 1 Each PO DAILY Mucinex (Guaifenesin) 600 Mg Tablet.er 600 Mg PO PRN BID PRN Namenda (Memantine Hcl) 10 Mg Tablet 5 Mg PO DAILY Gabapentin 600 Mg Tablet 600 Mg PO QID Gabapentin 100 Mg Capsule 100 Mg PO PRN Q6HRS Clonazepam 1 Mg Tablet 1 Mg PO BID I have reviewed the current psychotropics carefully including drug interactions. Risk benefit ratio favors no change other than as noted in my dictated progress note. Diagnosis: Problems: (1) Major depression (2) Anxiety (3) Bipolar affective disorder, mixed (4) Anxiety disorder (5) Major depressive disorder, recurrent episode (6) Impulse control disorder BRIAN CHAPA MD Jun 12, 2017 20:03
[2017-06-13 06:14] VITALS: BP_SYST 130; BP_SYST 161; BP_DIAS 72; BP_DIAS 89
[2017-06-13] MEDS: LACTOBACILLUS RHAMNOSUS GG 1 CAPSULE. PO SCH ×2 (08:00→20:14)
[2017-06-13] MEDS: lamoTRIgine 100 MG TABLET. PO SCH ×2 (08:00→20:13)
[2017-06-13] MEDS: GABAPENTIN 300 MG CAPSULE. PO SCH ×2 (08:00→20:14)
[2017-06-13] MEDS: clonazePAM 0.5 MG TABLET PO SCH ×2 (08:01→20:19)
[2017-06-13] MEDS: NYSTATIN TOPICAL POWDER 15GM BOTTLE. TP SCH ×2 (08:01→20:20)
[2017-06-13] MEDS: PRENATAL MULTIVITAMIN TABLET. PO SCH (16:27)
[2017-06-13 16:41] VITALS: BP 139/74
--- NOTE | 2017-06-13 20:04 | PDOC ---
Exam Note: Greg Note: Please also refer to the separate dictated note~for this date of service dictated separately.~Patient seen individually. Discussed the patient with Nursing staff reviewed the chart.~Reviewed interim history and current functioning. Reviewed vital signs,~Labs/ Radiology~and current medications noted below. Continue current treatment with the changes noted in the dictated addendum note Assessment: Vital Signs: Vital Signs Date Time Temp Pulse Resp B/P (MAP) Pulse Ox O2 Delivery O2 Flow Rate FiO2 06/13/17 16:41 98.5 94 18 139/74 (95) 99 I&O Intake and Output 06/13/17 07:00 Intake Total 1425 ml Balance 1425 ml Intake Oral 1425 ml # Voids 1 # Bowel Movements 3 Current Medications: Meds: Current Medications Acetaminophen (Tylenol) 650 mg PRN Q6HRS PRN PO PAIN / TEMP; Start 05/19/17 at 16:15; Stop 05/19/17 at 18:42; Status DC Multi-Ingredient Ointment (Analgesic [place]) 1 missael PRN QID PRN TP MUSCLE PAIN; Start 05/19/17 at 16:15 Al Hydroxide/Mg Hydroxide (Mylanta Plus Xs) 15 ml PRN AFTMEALHC PRN PO DYSPEPSIA Last administered on 05/26/17at 20:02; Start 05/19/17 at 16:15 Magnesium Hydroxide (Milk Of Magnesia) 2,400 mg PRN QHS PRN PO CONSTIPATION; Start 05/19/17 at 16:15 Clonazepam (KlonoPIN) 1 mg BID PO Last administered on 05/29/17at 08:45; Start at 21:00; Stop 05/29/17 at 17:47; Status DC Donepezil HCl (Aricept) 5 mg QHS PO Last administered on 05/30/17at 20:24; Start 05/19/17 at 21:00; Stop 05/31/17 at 18:41; Status DC Lamotrigine (LaMICtal) 150 mg BID PO Last administered on 05/20/17at 20:17; Start 05/19/17 at 21:00; Stop 05/20/17 at 20:37; Status DC Memantine (Namenda) 5 mg DAILY PO Last administered on 06/07/17at 09:02; Start 05/20/17 at 09:00; Stop 06/07/17 at 18:46; Status DC Mirtazapine (Remeron) 15 mg QHS PO Last administered on 06/06/17at 20:36; Start 05/19/17 at 21:00; Stop 06/07/17 at 18:46; Status DC Quetiapine Fumarate (SEROquel) 400 mg QHS PO Last administered on 05/22/17at 19: 57; Start 05/19/17 at 21:00; Stop 05/23/17 at 18:44; Status DC Venlafaxine HCl (Effexor) 50 mg TID PO Last administered on 05/20/17at 14:00; Start 05/19/17 at 21:00; Stop 05/20/17 at 19:25; Status DC Acetaminophen (Tylenol) 650 mg PRN Q4HRS PRN PO PAIN Last administered on at 19:43; Start 05/19/17 at 18:15 Vitamin D (Vitamin D3) 3,000 unit QHS PO Last administered on 06/12/17at 19:31; Start 05/19/17 at 21:00 Fluticasone Propionate (Flonase) 2 spray PRN BID PRN NS ALLERGIES; Start at 18:15 Gabapentin (Neurontin) 100 mg PRN Q6HRS PRN PO ANXIETY; Start 05/19/17 at 18:15 ; Stop 05/20/17 at 19:25; Status DC Guaifenesin (Mucinex Er) 600 mg PRN BID PRN PO coughing; Start 05/19/17 at 18: 15 Ketoconazole (Nizoral 2% Shampoo) 1 missael QMONFR TP Last administered on at 16:54; Start 05/26/17 at 16:00 Lidocaine HCl (Uro-Jet) 5 missael PRN Q4HRS PRN TP PAIN; Start 05/19/17 at 18:15; Stop 05/19/17 at 20:05; Status DC Nystatin (Mycostatin) 1 missael PRN BID PRN TP itching; Start 05/19/17 at 18:15; Stop 06/02/17 at 11:13; Status DC Polyethylene Glycol (miraLAX) 17 gm HS PO Last administered on 06/12/17at 19:31 ; Start 05/19/17 at 21:00 Gabapentin (Neurontin) 600 mg QID PO Last administered on 05/20/17at 17:21; Start 05/19/17 at 21:00; Stop 05/20/17 at 19:25; Status DC Multivitamins/ Calcium (Thera-M Plus) 1 tab DAILY PO Last administered on at 07:59; Start 05/20/17 at 09:00; Stop 05/21/17 at 14:59; Status DC Fish Oil (Fish Oil) 1,000 mg QHS PO Last administered on 06/12/17at 19:31; Start 05/19/17 at 21:00 Ondansetron HCl (Zofran Odt) 4 mg PRN Q6HRS PRN PO NAUSEA; Start 05/19/17 at 19 :00 Non-Formulary Medication 1 drop QID EACHEYE ; Start 05/19/17 at 21:00; Stop at 21:00; Status DC Artificial Tears (Artificial Tears) 1 drop PRN QID PRN OU DRY EYE; Start at 19:00; Stop 05/20/17 at 14:59; Status DC Lidocaine HCl (Xylocaine 2% Topical 5gm Tube) 1 missael PRN Q4HRS PRN TP PAIN; Start 05/19/17 at 20:15; Stop 05/20/17 at 14:59; Status DC Lidocaine HCl (Xylocaine 2% Topical 5gm Tube) 1 missael PRN Q4HRS PRN TP PAIN Last administered on 05/23/17at 05:41; Start 05/20/17 at 14:59 Artificial Tears (Artificial Tears) 1 drop PRN QID PRN OU DRY EYE Last administered on 05/29/17at 08:44; Start 05/20/17 at 14:59 Gabapentin (Neurontin) 600 mg TID PO Last administered on 06/01/17at 19:24; Start 05/20/17 at 21:00; Stop 06/01/17 at 23:00; Status DC Duloxetine HCl (Cymbalta) 30 mg DAILY PO Last administered on 06/03/17at 07:42; Start 05/21/17 at 09:00; Stop 06/03/17 at 18:33; Status DC Lamotrigine (LaMICtal) 150 mg DAILY PO Last administered on 05/29/17 08:40; Start 05/21/17 at 09:00; Stop 05/29/17 at 17:46; Status DC Lamotrigine (LaMICtal) 200 mg HS PO Last administered on 05/28/17at 19:45; Start 05/20/17 at 21:00; Stop 05/29/17 at 17:46; Status DC Prenat Multivit/ [place]/Iron/Folic Ac (Multivitamin ) 1 tab DAILYBFRSUP PO Last administered on 06/13/17at 16:27; Start 05/21/17 at 17:00 Fosfomycin Tromethamine (Monurol) 3 gm 1X ONCE PO Last administered on at 15:00; Start 05/21/17 at 15:00; Stop 05/21/17 at 15:01; Status DC Quetiapine Fumarate (SEROquel) 300 mg QHS PO Last administered on 05/25/17at 20: 28; Start 05/23/17 at 21:00; Stop 05/26/17 at 17:47; Status DC Nystatin (Nystop) 15 missael STK-MED ONCE TP Last administered on 05/24/17at 17:40; Start 05/24/17 at 17:40; Stop 05/24/17 at 17:41; Status DC Sodium Chloride (Saline Mist Nasal) 1 missael PRN Q1HR PRN NS NASAL CONGESTION Last administered on 05/27/17at 20:38; Start 05/25/17 at 09:15 Quetiapine Fumarate (SEROquel) 200 mg QHS PO Last administered on 06/04/17at 20: 24; Start 05/26/17 at 21:00; Stop 06/05/17 at 17:39; Status DC Ketorolac Tromethamine (Acular) 1 drop Q8HRS OD Last administered on 06/03/17 06:23; Start 05/29/17 at 14:00; Stop 06/03/17 at 13:59; Status DC Lamotrigine (LaMICtal) 200 mg BID PO Last administered on 06/03/17at 07:42; Start 05/29/17 at 21:00; Stop 06/03/17 at 18:33; Status DC Clonazepam (KlonoPIN) 1 mg DAILY PO Last administered on 06/01/17at 08:07; Start 05/30/17 at 09:00; Stop 06/01/17 at 12:25; Status DC Clonazepam (KlonoPIN) 0.75 mg QHS PO Last administered on 06/07/17at 19:56; Start 05/29/17 at 21:00; Stop 06/08/17 at 21:00; Status DC Donepezil HCl (Aricept) 10 mg QHS PO Last administered on 06/06/17at 20:22; Start 05/31/17 at 21:00; Stop 06/07/17 at 18:46; Status DC Clonazepam (KlonoPIN) 0.75 mg DAILY PO Last administered on 06/04/17at 07:52; Start 06/02/17 at 09:00; Stop 06/04/17 at 09:01; Status DC Clonazepam (KlonoPIN) 0.5 mg DAILY PO Last administered on 06/13/17at 08:01; Start 06/05/17 at 09:00; Stop 06/13/17 at 09:01; Status DC Clonazepam (KlonoPIN) 0.5 mg HS PO Last administered on 06/10/17at 20:35; Start 06/08/17 at 21:00; Stop 06/10/17 at 21:01; Status DC Ciprofloxacin (Cipro) 250 mg BID PO Last administered on 06/06/17at 08:20; Start 06/01/17 at 21:00; Stop 06/06/17 at 20:59; Status DC Gabapentin (Neurontin) 300 mg QID PO Last administered on 06/05/17at 19:42; Start 06/02/17 at 04:00; Stop 06/05/17 at 23:00; Status DC Gabapentin (Neurontin) 300 mg TID PO Last administered on 06/08/17at 20:23; Start 06/06/17 at 04:00; Stop 06/08/17 at 23:00; Status DC Gabapentin (Neurontin) 300 mg BID PO ; Start 06/09/17 at 04:00; Stop 06/09/17 at 04:00; Status DC Lactobacillus Rhamnosus (Culturelle) 1 cap BID PO Last administered on at 08:00; Start 06/02/17 at 21:00 Nystatin (Mycostatin) 1 missael BID TP ; Start 06/02/17 at 21:00; Stop 06/02/17 at 21: 07; Status DC Nystatin (Mycostatin) 1 missael BID TP ; Start 06/02/17 at 21:00; Stop 06/03/17 at 07 :47; Status DC Nystatin (Nystop) 1 missael BID TP Last administered on 06/13/17at 08:01; Start 02/08 at 09:00 Lamotrigine (LaMICtal) 150 mg HS PO Last administered on 06/05/17at 19:40; Start 06/03/17 at 21:00; Stop 06/06/17 at 00:00; Status DC Duloxetine HCl (Cymbalta) 60 mg DAILY PO Last administered on 06/07/17at 09:02; Start 06/04/17 at 09:00; Stop 06/07/17 at 18:46; Status DC Lamotrigine (LaMICtal) 100 mg DAILY PO Last administered on 06/04/17at 07:54; Start 06/04/17 at 09:00; Stop 06/04/17 at 09:50; Status DC Lamotrigine (LaMICtal) 200 mg DAILY PO Last administered on 06/13/17at 08:00; Start 06/05/17 at 09:00 Lamotrigine (LaMICtal) 200 mg HS PO Last administered on 06/12/17at 19:31; Start 06/06/17 at 21:00 Lamotrigine (LaMICtal) 100 mg 1X ONCE PO Last administered on 06/04/17at 10:00 ; Start 06/04/17 at 10:00; Stop 06/04/17 at 10:01; Status DC Quetiapine Fumarate (SEROquel) 250 mg QHS PO Last administered on 06/12/17at 19: 32; Start 06/05/17 at 21:00 Duloxetine HCl (Cymbalta) 30 mg DAILY PO Last administered on 06/10/17at 07:58; Start 06/08/17 at 09:00; Stop 06/11/17 at 08:59; Status DC Gabapentin (Neurontin) 300 mg BID PO Last administered on 06/13/17at 08:00; Start 06/10/17 at 09:00 Olanzapine (ZyPREXA ZYDIS) 2.5 mg PRN Q2HR PRN PO PSYCHOSIS; Start 06/09/17 at 18:45 Clonazepam (KlonoPIN) 0.25 mg DAILY PO ; Start 06/14/17 at 09:00; Stop 06/16/17 at 09:00 Clonazepam (KlonoPIN) 0.5 mg HS PO ; Start 06/13/17 at 21:00; Stop 06/16/17 at 21:00 Clonazepam (KlonoPIN) 0.25 mg BID PO ; Start 06/17/17 at 09:00 Active Scripts Active Reported Vitamin D3 (Cholecalciferol (Vitamin D3)) 1,000 Unit Tablet 3,000 Unit PO QHS Systane 0.3-0.4% Eye Drops (Propylene Glycol/Peg 400) 15 Ml Drops 1 Drop EACHEYE QID Systane 0.3-0.4% Eye Drops (Propylene Glycol/Peg 400) 15 Ml Drops 1 Drop EACHEYE QIDPRN PRN Pain Reliever Plus Tablet (Aspirin/Acetaminophen/Caffeine) 1 Each Tablet 2 Each PO PRN PRN Ondansetron Hcl 4 Mg Tablet 4 Mg PO PRN Q6HRS PRN Nystatin 100,000 Unit/1 Ml Oral.susp 100,000 Unit PO Nystatin 15 Gm Cream..g. 1 Missael TP PRN BID PRN Miralax (Polyethylene Glycol 3350) 17 Gm Powd.pack 17 Gm PO HS Lidocaine Hcl 5 Ml Jel..ml. 5 Ml TOP PRN Q4HRS Ketoconazole 120 Ml Shampoo 1 Missael TP TWICE WEEKLY Ibuprofen 100 Mg/5 Ml Oral.susp 200 Mg PO PRN TID PRN Hydroxyzine Hcl 25 Mg Tablet 25 Mg PO PRN Q4HRS PRN Hydrocortisone 453.6 Gm Oint...g. 1 Missael TP PRN BID PRN Epa-Dha 720 Softgel ([place]-3/Dha/Epa/Fish Oil) 1 Each Capsule 1 Each PO QHS Donepezil Hcl 5 Mg Tablet 5 Mg PO QHS Saline Nasal Freedom (Sodium Chloride) 30 Ml Freedom 1 Spr NS PRN PRN Tylenol (Acetaminophen) 325 Mg Tablet 650 Mg PO PRN Q4HRS PRN Seroquel (Quetiapine Fumarate) 400 Mg Tablet 400 Mg PO HS Mirtazapine 15 Mg Tablet 15 Mg PO QHS Lamotrigine 150 Mg Tablet 150 Mg PO BID Fluticasone Propionate Nasal [place] (Fluticasone Propionate) 16 Gm Freedom.susp 2 Freedom NS PRN BID PRN Effexor Xr (Venlafaxine Hcl) 150 Mg Cap.er.24h 150 Mg PO DAILY Multi Vitamin Daily (Multivitamin) 1 Each Tablet 1 Each PO DAILY Mucinex (Guaifenesin) 600 Mg Tablet.er 600 Mg PO PRN BID PRN Namenda (Memantine Hcl) 10 Mg Tablet 5 Mg PO DAILY Gabapentin 600 Mg Tablet 600 Mg PO QID Gabapentin 100 Mg Capsule 100 Mg PO PRN Q6HRS Clonazepam 1 Mg Tablet 1 Mg PO BID I have reviewed the current psychotropics carefully including drug interactions. Risk benefit ratio favors no change other than as noted in my dictated progress note. Diagnosis: Problems: (1) Major depression (2) Anxiety (3) Bipolar affective disorder, mixed (4) Anxiety disorder (5) Major depressive disorder, recurrent episode (6) Impulse control disorder BRIAN CHAPA MD Jun 13, 2017 20:04
[2017-06-13] MEDS: CHOLECALCIFEROL (VITAMIN D3) 1,000 UNIT TABLET PO SCH (20:14)
[2017-06-13] MEDS: OMEGA-3 FATTY ACIDS/FISH OIL 1,000 MG CAPSULE. PO SCH (20:14)
[2017-06-13] MEDS: POLYETHYLENE GLYCOL 3350 17 GM PACKET. PO SCH (20:15)
[2017-06-13] MEDS: QUEtiapine 100 MG TABLET. PO SCH (20:16)
--- NOTE | 2017-06-14 00:15 | PN ---
DATE: 06/11/2017 This late entry 06/11/2017 covers elements not covered in my initial note 06/11/2017. Met with the patient evening of 06/11/2017. SUBJECTIVE: The patient complained of some GI symptoms and nausea, received Pepto-Bismol with relief. Somewhat delusional, believes she was raped. Labs, creatinine 1.2, hemoglobin 11.9, RDW 16.3. REVIEW OF SYSTEMS: Still in wheelchair. No CV, , pulmonary, eye system symptoms on review other than the GI symptoms. MENTAL STATUS EXAM: Reasonably oriented. Speech coherent, abstraction fair, computation impaired, language function intact, a little anxious, dysphoric. LABORATORY DATA: Reviewed. IMPRESSION: Major depressive disorder with psychotic features, versus bipolar 2 disorder, depressed, cognitive disorder, unspecified. PLAN: Continue psychotropics mentioned in my initial note. MAN Vidal CHAPA MD DR: ANTONIO/gianfranco JOB#: [id number] / [id number]
--- NOTE | 2017-06-14 00:21 | PN ---
DATE: 06/12/2017 This is a late entry 06/12, covers elements not covered in my initial note 06/12/2017. SUBJECTIVE: I met with the patient in the evening of 06/12. The patient slept 7 hours previous evening somewhat somatic attention seeking, believes she has paralysis in her lower extremities. I examined her. She has good strength, but was tearful, labile. "I cannot walk." She has been in a wheelchair for some time now. REVIEW OF SYSTEMS: No CV, , pulmonary, eye system symptoms on review. MENTAL STATUS EXAM: Oriented to herself and situation. Speech coherent, abstraction fair, computation impaired, language function intact, attention span short. Mood and affect somewhat labile, slept 7 hours previous evening. IMPRESSION: Bipolar 1 disorder, depressed versus bipolar 2 disorder, depressed. PLAN: Continue current psychotropics and the multiple changes and reductions be made recently. MAN Vidal CHAPA MD DR: ANTONIO/gianfranco JOB#: [id number] / [id number]
[2017-06-14 05:55] VITALS: BP 111/56
[2017-06-14] MEDS: LACTOBACILLUS RHAMNOSUS GG 1 CAPSULE. PO SCH ×2 (09:08→20:29)
[2017-06-14] MEDS: GABAPENTIN 300 MG CAPSULE. PO SCH (09:08)
[2017-06-14] MEDS: lamoTRIgine 100 MG TABLET. PO SCH ×2 (09:08→20:30)
[2017-06-14] MEDS: NYSTATIN TOPICAL POWDER 15GM BOTTLE. TP SCH ×2 (09:10→20:31)
[2017-06-14] MEDS: clonazePAM 0.5 MG TABLET PO SCH ×2 (09:11→22:25)
[2017-06-14] MEDS: PRENATAL MULTIVITAMIN TABLET. PO SCH (16:45)
[2017-06-14 16:48] VITALS: BP 115/74
--- NOTE | 2017-06-14 20:05 | PDOC ---
Exam Note: Greg Note: Please also refer to the separate dictated note~for this date of service dictated separately.~Patient seen individually. Discussed the patient with Nursing staff reviewed the chart.~Reviewed interim history and current functioning. Reviewed vital signs,~Labs/ Radiology~and current medications noted below. Continue current treatment with the changes noted in the dictated addendum note Assessment: Vital Signs: Vital Signs Date Time Temp Pulse Resp B/P (MAP) Pulse Ox O2 Delivery O2 Flow Rate FiO2 06/14/17 16:48 98.3 63 18 115/74 (88) 94 06/14/17 05:55 Room Air I&O Intake and Output 06/14/17 07:00 Intake Total 1200 ml Balance 1200 ml Intake Oral 1200 ml # Voids 1 # Bowel Movements 1 Current Medications: Meds: Current Medications Acetaminophen (Tylenol) 650 mg PRN Q6HRS PRN PO PAIN / TEMP; Start 05/19/17 at 16:15; Stop 05/19/17 at 18:42; Status DC Multi-Ingredient Ointment (Analgesic [place]) 1 missael PRN QID PRN TP MUSCLE PAIN; Start 05/19/17 at 16:15 Al Hydroxide/Mg Hydroxide (Mylanta Plus Xs) 15 ml PRN AFTMEALHC PRN PO DYSPEPSIA Last administered on 05/26/17at 20:02; Start 05/19/17 at 16:15 Magnesium Hydroxide (Milk Of Magnesia) 2,400 mg PRN QHS PRN PO CONSTIPATION; Start 05/19/17 at 16:15 Clonazepam (KlonoPIN) 1 mg BID PO Last administered on 05/29/17at 08:45; Start at 21:00; Stop 05/29/17 at 17:47; Status DC Donepezil HCl (Aricept) 5 mg QHS PO Last administered on 05/30/17at 20:24; Start 05/19/17 at 21:00; Stop 05/31/17 at 18:41; Status DC Lamotrigine (LaMICtal) 150 mg BID PO Last administered on 05/20/17at 20:17; Start 05/19/17 at 21:00; Stop 05/20/17 at 20:37; Status DC Memantine (Namenda) 5 mg DAILY PO Last administered on 06/07/17at 09:02; Start 05/20/17 at 09:00; Stop 06/07/17 at 18:46; Status DC Mirtazapine (Remeron) 15 mg QHS PO Last administered on 06/06/17at 20:36; Start 05/19/17 at 21:00; Stop 06/07/17 at 18:46; Status DC Quetiapine Fumarate (SEROquel) 400 mg QHS PO Last administered on 05/22/17at 19: 57; Start 05/19/17 at 21:00; Stop 05/23/17 at 18:44; Status DC Venlafaxine HCl (Effexor) 50 mg TID PO Last administered on 05/20/17at 14:00; Start 05/19/17 at 21:00; Stop 05/20/17 at 19:25; Status DC Acetaminophen (Tylenol) 650 mg PRN Q4HRS PRN PO PAIN Last administered on at 19:43; Start 05/19/17 at 18:15 Vitamin D (Vitamin D3) 3,000 unit QHS PO Last administered on 06/13/17at 20:14; Start 05/19/17 at 21:00 Fluticasone Propionate (Flonase) 2 spray PRN BID PRN NS ALLERGIES; Start at 18:15 Gabapentin (Neurontin) 100 mg PRN Q6HRS PRN PO ANXIETY; Start 05/19/17 at 18:15 ; Stop 05/20/17 at 19:25; Status DC Guaifenesin (Mucinex Er) 600 mg PRN BID PRN PO coughing; Start 05/19/17 at 18: 15 Ketoconazole (Nizoral 2% Shampoo) 1 missael QMONFR TP Last administered on at 16:54; Start 05/26/17 at 16:00 Lidocaine HCl (Uro-Jet) 5 missael PRN Q4HRS PRN TP PAIN; Start 05/19/17 at 18:15; Stop 05/19/17 at 20:05; Status DC Nystatin (Mycostatin) 1 missael PRN BID PRN TP itching; Start 05/19/17 at 18:15; Stop 06/02/17 at 11:13; Status DC Polyethylene Glycol (miraLAX) 17 gm HS PO Last administered on 06/13/17at 20:15 ; Start 05/19/17 at 21:00 Gabapentin (Neurontin) 600 mg QID PO Last administered on 05/20/17at 17:21; Start 05/19/17 at 21:00; Stop 05/20/17 at 19:25; Status DC Multivitamins/ Calcium (Thera-M Plus) 1 tab DAILY PO Last administered on at 07:59; Start 05/20/17 at 09:00; Stop 05/21/17 at 14:59; Status DC Fish Oil (Fish Oil) 1,000 mg QHS PO Last administered on 06/13/17at 20:14; Start 05/19/17 at 21:00 Ondansetron HCl (Zofran Odt) 4 mg PRN Q6HRS PRN PO NAUSEA; Start 05/19/17 at 19 :00 Non-Formulary Medication 1 drop QID EACHEYE ; Start 05/19/17 at 21:00; Stop at 21:00; Status DC Artificial Tears (Artificial Tears) 1 drop PRN QID PRN OU DRY EYE; Start at 19:00; Stop 05/20/17 at 14:59; Status DC Lidocaine HCl (Xylocaine 2% Topical 5gm Tube) 1 missael PRN Q4HRS PRN TP PAIN; Start 05/19/17 at 20:15; Stop 05/20/17 at 14:59; Status DC Lidocaine HCl (Xylocaine 2% Topical 5gm Tube) 1 missael PRN Q4HRS PRN TP PAIN Last administered on 05/23/17at 05:41; Start 05/20/17 at 14:59 Artificial Tears (Artificial Tears) 1 drop PRN QID PRN OU DRY EYE Last administered on 05/29/17at 08:44; Start 05/20/17 at 14:59 Gabapentin (Neurontin) 600 mg TID PO Last administered on 06/01/17at 19:24; Start 05/20/17 at 21:00; Stop 06/01/17 at 23:00; Status DC Duloxetine HCl (Cymbalta) 30 mg DAILY PO Last administered on 06/03/17at 07:42; Start 05/21/17 at 09:00; Stop 06/03/17 at 18:33; Status DC Lamotrigine (LaMICtal) 150 mg DAILY PO Last administered on 05/29/17at 08:40; Start 05/21/17 at 09:00; Stop 05/29/17 at 17:46; Status DC Lamotrigine (LaMICtal) 200 mg HS PO Last administered on 05/28/17at 19:45; Start 05/20/17 at 21:00; Stop 05/29/17 at 17:46; Status DC Prenat Multivit/ Burt/Iron/Folic Ac (Multivitamin ) 1 tab DAILYBFRSUP PO Last administered on 06/14/17at 16:45; Start 05/21/17 at 17:00 Fosfomycin Tromethamine (Monurol) 3 gm 1X ONCE PO Last administered on at 15:00; Start 05/21/17 at 15:00; Stop 05/21/17 at 15:01; Status DC Quetiapine Fumarate (SEROquel) 300 mg QHS PO Last administered on 05/25/17at 20: 28; Start 05/23/17 at 21:00; Stop 05/26/17 at 17:47; Status DC Nystatin (Nystop) 15 missael STK-MED ONCE TP Last administered on 05/24/17at 17:40; Start 05/24/17 at 17:40; Stop 05/24/17 at 17:41; Status DC Sodium Chloride (Saline Mist Nasal) 1 missael PRN Q1HR PRN NS NASAL CONGESTION Last administered on 05/27/17at 20:38; Start 05/25/17 at 09:15 Quetiapine Fumarate (SEROquel) 200 mg QHS PO Last administered on 06/04/17at 20: 24; Start 05/26/17 at 21:00; Stop 06/05/17 at 17:39; Status DC Ketorolac Tromethamine (Acular) 1 drop Q8HRS OD Last administered on 06/03/17at 06:23; Start 05/29/17 at 14:00; Stop 06/03/17 at 13:59; Status DC Lamotrigine (LaMICtal) 200 mg BID PO Last administered on 06/03/17at 07:42; Start 05/29/17 at 21:00; Stop 06/03/17 at 18:33; Status DC Clonazepam (KlonoPIN) 1 mg DAILY PO Last administered on 06/01/17at 08:07; Start 05/30/17 at 09:00; Stop 06/01/17 at 12:25; Status DC Clonazepam (KlonoPIN) 0.75 mg QHS PO Last administered on 06/07/17at 19:56; Start 05/29/17 at 21:00; Stop 06/08/17 at 21:00; Status DC Donepezil HCl (Aricept) 10 mg QHS PO Last administered on 06/06/17at 20:22; Start 05/31/17 at 21:00; Stop 06/07/17 at 18:46; Status DC Clonazepam (KlonoPIN) 0.75 mg DAILY PO Last administered on 06/04/17at 07:52; Start 06/02/17 at 09:00; Stop 06/04/17 at 09:01; Status DC Clonazepam (KlonoPIN) 0.5 mg DAILY PO Last administered on 06/13/17at 08:01; Start 06/05/17 at 09:00; Stop 06/13/17 at 09:01; Status DC Clonazepam (KlonoPIN) 0.5 mg HS PO Last administered on 06/10/17at 20:35; Start 06/08/17 at 21:00; Stop 06/10/17 at 21:01; Status DC Ciprofloxacin (Cipro) 250 mg BID PO Last administered on 06/06/17at 08:20; Start 06/01/17 at 21:00; Stop 06/06/17 at 20:59; Status DC Gabapentin (Neurontin) 300 mg QID PO Last administered on 06/05/17at 19:42; Start 06/02/17 at 04:00; Stop 06/05/17 at 23:00; Status DC Gabapentin (Neurontin) 300 mg TID PO Last administered on 06/08/17at 20:23; Start 06/06/17 at 04:00; Stop 06/08/17 at 23:00; Status DC Gabapentin (Neurontin) 300 mg BID PO ; Start 06/09/17 at 04:00; Stop 06/09/17 at 04:00; Status DC Lactobacillus Rhamnosus (Culturelle) 1 cap BID PO Last administered on at 09:08; Start 06/02/17 at 21:00 Nystatin (Mycostatin) 1 missael BID TP ; Start 06/02/17 at 21:00; Stop 06/02/17 at 21: 07; Status DC Nystatin (Mycostatin) 1 missael BID TP ; Start 06/02/17 at 21:00; Stop 06/03/17 at 07 :47; Status DC Nystatin (Nystop) 1 missael BID TP Last administered on 06/14/17at 09:10; Start 02/08 at 09:00 Lamotrigine (LaMICtal) 150 mg HS PO Last administered on 06/05/17at 19:40; Start 06/03/17 at 21:00; Stop 06/06/17 at 00:00; Status DC Duloxetine HCl (Cymbalta) 60 mg DAILY PO Last administered on 06/07/17at 09:02; Start 06/04/17 at 09:00; Stop 06/07/17 at 18:46; Status DC Lamotrigine (LaMICtal) 100 mg DAILY PO Last administered on 06/04/17at 07:54; Start 06/04/17 at 09:00; Stop 06/04/17 at 09:50; Status DC Lamotrigine (LaMICtal) 200 mg DAILY PO Last administered on 06/14/17at 09:08; Start 06/05/17 at 09:00 Lamotrigine (LaMICtal) 200 mg HS PO Last administered on 06/13/17at 20:13; Start 06/06/17 at 21:00 Lamotrigine (LaMICtal) 100 mg 1X ONCE PO Last administered on 06/04/17at 10:00 ; Start 06/04/17 at 10:00; Stop 06/04/17 at 10:01; Status DC Quetiapine Fumarate (SEROquel) 250 mg QHS PO Last administered on 06/13/17at 20: 16; Start 06/05/17 at 21:00 Duloxetine HCl (Cymbalta) 30 mg DAILY PO Last administered on 06/10/17at 07:58; Start 06/08/17 at 09:00; Stop 06/11/17 at 08:59; Status DC Gabapentin (Neurontin) 300 mg BID PO Last administered on 06/14/17at 09:08; Start 06/10/17 at 09:00; Stop 06/14/17 at 18:36; Status DC Olanzapine (ZyPREXA ZYDIS) 2.5 mg PRN Q2HR PRN PO PSYCHOSIS; Start 06/09/17 at 18:45 Clonazepam (KlonoPIN) 0.25 mg DAILY PO Last administered on 06/14/17at 09:11; Start 06/14/17 at 09:00; Stop 06/16/17 at 09:00 Clonazepam (KlonoPIN) 0.5 mg HS PO Last administered on 06/13/17at 20:19; Start 06/13/17 at 21:00; Stop 06/16/17 at 21:00 Clonazepam (KlonoPIN) 0.25 mg BID PO ; Start 06/17/17 at 09:00 Gabapentin (Neurontin) 300 mg DAILY PO ; Start 06/15/17 at 09:00; Stop 06/18/17 at 08:59 Active Scripts Active Reported Vitamin D3 (Cholecalciferol (Vitamin D3)) 1,000 Unit Tablet 3,000 Unit PO QHS Systane 0.3-0.4% Eye Drops (Propylene Glycol/Peg 400) 15 Ml Drops 1 Drop EACHEYE QID Systane 0.3-0.4% Eye Drops (Propylene Glycol/Peg 400) 15 Ml Drops 1 Drop EACHEYE QIDPRN PRN Pain Reliever Plus Tablet (Aspirin/Acetaminophen/Caffeine) 1 Each Tablet 2 Each PO PRN PRN Ondansetron Hcl 4 Mg Tablet 4 Mg PO PRN Q6HRS PRN Nystatin 100,000 Unit/1 Ml Oral.susp 100,000 Unit PO Nystatin 15 Gm Cream..g. 1 Missael TP PRN BID PRN Miralax (Polyethylene Glycol 3350) 17 Gm Powd.pack 17 Gm PO HS Lidocaine Hcl 5 Ml Jel..ml. 5 Ml TOP PRN Q4HRS Ketoconazole 120 Ml Shampoo 1 Missael TP TWICE WEEKLY Ibuprofen 100 Mg/5 Ml Oral.susp 200 Mg PO PRN TID PRN Hydroxyzine Hcl 25 Mg Tablet 25 Mg PO PRN Q4HRS PRN Hydrocortisone 453.6 Gm Oint...g. 1 Missael TP PRN BID PRN Epa-Dha 720 Softgel ([place]-3/Dha/Epa/Fish Oil) 1 Each Capsule 1 Each PO QHS Donepezil Hcl 5 Mg Tablet 5 Mg PO QHS Saline Nasal [place] (Sodium Chloride) 30 Ml [place] 1 Spr NS PRN PRN Tylenol (Acetaminophen) 325 Mg Tablet 650 Mg PO PRN Q4HRS PRN Seroquel (Quetiapine Fumarate) 400 Mg Tablet 400 Mg PO HS Mirtazapine 15 Mg Tablet 15 Mg PO QHS Lamotrigine 150 Mg Tablet 150 Mg PO BID Fluticasone Propionate Nasal [place] (Fluticasone Propionate) 16 Gm [place].susp 2 [place] NS PRN BID PRN Effexor Xr (Venlafaxine Hcl) 150 Mg Cap.er.24h 150 Mg PO DAILY Multi Vitamin Daily (Multivitamin) 1 Each Tablet 1 Each PO DAILY Mucinex (Guaifenesin) 600 Mg Tablet.er 600 Mg PO PRN BID PRN Namenda (Memantine Hcl) 10 Mg Tablet 5 Mg PO DAILY Gabapentin 600 Mg Tablet 600 Mg PO QID Gabapentin 100 Mg Capsule 100 Mg PO PRN Q6HRS Clonazepam 1 Mg Tablet 1 Mg PO BID I have reviewed the current psychotropics carefully including drug interactions. Risk benefit ratio favors no change other than as noted in my dictated progress note. Diagnosis: Problems: (1) Major depression (2) Anxiety (3) Bipolar affective disorder, mixed (4) Anxiety disorder (5) Major depressive disorder, recurrent episode (6) Impulse control disorder BRIAN CHAPA MD Jun 14, 2017 20:05
[2017-06-14] MEDS: CHOLECALCIFEROL (VITAMIN D3) 1,000 UNIT TABLET PO SCH (20:29)
[2017-06-14] MEDS: OMEGA-3 FATTY ACIDS/FISH OIL 1,000 MG CAPSULE. PO SCH (20:29)
[2017-06-14] MEDS: POLYETHYLENE GLYCOL 3350 17 GM PACKET. PO SCH (20:30)
[2017-06-14] MEDS: QUEtiapine 100 MG TABLET. PO SCH (20:30)
--- NOTE | 2017-06-14 22:33 | PN ---
DATE: 06/13/2017 This late entry 06/13/2017 covers the elements not covered in my initial note of 06/13/2017. Met with the patient morning of 06/13/2017. SUBJECTIVE: The patient was doing well, smiling, cooperative, later ate lunch, was somatically preoccupied, slid herself to the floor. No injury noted. She told her sister that staff are not feeding her and then told her sister that she will just give up on life. I questioned her closely on suicidal ideation. She denies any current suicidal ideation. REVIEW OF SYSTEMS: Ambulation impaired, in wheelchair. Complains of vague somatic symptoms, weakness, inability to move her legs, but she has good muscle strength. No CV, , pulmonary, eye system symptoms on review. MENTAL STATUS EXAM: Reasonably oriented. Speech coherent. Very tearful, labile as I met with her ____ box of Radha and she was appreciative of this. Abstraction fair, computation impaired, language function intact. Mood and affect somewhat labile, depressed. She was on Cymbalta, but the family had got a second psychiatric opinion who recommended discontinuing at least. Since then stopped it. Her depressive symptoms are worse since then, but we will wait a while and see how she does. Klonopin is being tapered and we will continue to do this. Maintain Lamictal, Seroquel along with Neurontin that she is taking at a lower dosage. MAN Vidal CHAPA MD DR: ANTONIO/gianfranco JOB#: [id number] / [id number]
[2017-06-15 06:31] VITALS: BP 118/70
[2017-06-15] MEDS: clonazePAM 0.5 MG TABLET PO SCH ×2 (09:00→20:19)
[2017-06-15] MEDS: LACTOBACILLUS RHAMNOSUS GG 1 CAPSULE. PO SCH ×2 (09:01→20:14)
[2017-06-15] MEDS: lamoTRIgine 100 MG TABLET. PO SCH ×2 (09:01→20:14)
[2017-06-15] MEDS: NYSTATIN TOPICAL POWDER 15GM BOTTLE. TP SCH ×2 (09:03→20:16)
[2017-06-15] MEDS: GABAPENTIN 300 MG CAPSULE. PO SCH (09:04)
[2017-06-15 16:30] VITALS: BP 127/79
[2017-06-15] MEDS: PRENATAL MULTIVITAMIN TABLET. PO SCH (16:49)
--- NOTE | 2017-06-15 19:58 | PDOC ---
Exam Note: Greg Note: Please also refer to the separate dictated note~for this date of service dictated separately.~Patient seen individually. Discussed the patient with Nursing staff reviewed the chart.~Reviewed interim history and current functioning. Reviewed vital signs,~Labs/ Radiology~and current medications noted below. Continue current treatment with the changes noted in the dictated addendum note Assessment: Vital Signs: Vital Signs Date Time Temp Pulse Resp B/P (MAP) Pulse Ox O2 Delivery O2 Flow Rate FiO2 06/15/17 16:30 97.4 80 18 127/79 (95) 95 Room Air I&O Intake and Output 06/15/17 07:00 Intake Total 720 ml Balance 720 ml Intake Oral 720 ml # Voids 1 Current Medications: Meds: Current Medications Acetaminophen (Tylenol) 650 mg PRN Q6HRS PRN PO PAIN / TEMP; Start 05/19/17 at 16:15; Stop 05/19/17 at 18:42; Status DC Multi-Ingredient Ointment (Analgesic [place]) 1 missael PRN QID PRN TP MUSCLE PAIN; Start 05/19/17 at 16:15 Al Hydroxide/Mg Hydroxide (Mylanta Plus Xs) 15 ml PRN AFTMEALHC PRN PO DYSPEPSIA Last administered on 05/26/17at 20:02; Start 05/19/17 at 16:15 Magnesium Hydroxide (Milk Of Magnesia) 2,400 mg PRN QHS PRN PO CONSTIPATION; Start 05/19/17 at 16:15 Clonazepam (KlonoPIN) 1 mg BID PO Last administered on 05/29/17at 08:45; Start at 21:00; Stop 05/29/17 at 17:47; Status DC Donepezil HCl (Aricept) 5 mg QHS PO Last administered on 05/30/17at 20:24; Start 05/19/17 at 21:00; Stop 05/31/17 at 18:41; Status DC Lamotrigine (LaMICtal) 150 mg BID PO Last administered on 05/20/17at 20:17; Start 05/19/17 at 21:00; Stop 05/20/17 at 20:37; Status DC Memantine (Namenda) 5 mg DAILY PO Last administered on 06/07/17at 09:02; Start 05/20/17 at 09:00; Stop 06/07/17 at 18:46; Status DC Mirtazapine (Remeron) 15 mg QHS PO Last administered on 06/06/17at 20:36; Start 05/19/17 at 21:00; Stop 06/07/17 at 18:46; Status DC Quetiapine Fumarate (SEROquel) 400 mg QHS PO Last administered on 05/22/17at 19: 57; Start 05/19/17 at 21:00; Stop 05/23/17 at 18:44; Status DC Venlafaxine HCl (Effexor) 50 mg TID PO Last administered on 05/20/17at 14:00; Start 05/19/17 at 21:00; Stop 05/20/17 at 19:25; Status DC Acetaminophen (Tylenol) 650 mg PRN Q4HRS PRN PO PAIN Last administered on at 19:43; Start 05/19/17 at 18:15 Vitamin D (Vitamin D3) 3,000 unit QHS PO Last administered on 06/14/17at 20:29; Start 05/19/17 at 21:00 Fluticasone Propionate (Flonase) 2 spray PRN BID PRN NS ALLERGIES; Start at 18:15 Gabapentin (Neurontin) 100 mg PRN Q6HRS PRN PO ANXIETY; Start 05/19/17 at 18:15 ; Stop 05/20/17 at 19:25; Status DC Guaifenesin (Mucinex Er) 600 mg PRN BID PRN PO coughing; Start 05/19/17 at 18: 15 Ketoconazole (Nizoral 2% Shampoo) 1 missael QMONFR TP Last administered on at 16:54; Start 05/26/17 at 16:00 Lidocaine HCl (Uro-Jet) 5 missael PRN Q4HRS PRN TP PAIN; Start 05/19/17 at 18:15; Stop 05/19/17 at 20:05; Status DC Nystatin (Mycostatin) 1 missael PRN BID PRN TP itching; Start 05/19/17 at 18:15; Stop 06/02/17 at 11:13; Status DC Polyethylene Glycol (miraLAX) 17 gm HS PO Last administered on 06/14/17at 20:30 ; Start 05/19/17 at 21:00 Gabapentin (Neurontin) 600 mg QID PO Last administered on 05/20/17at 17:21; Start 05/19/17 at 21:00; Stop 05/20/17 at 19:25; Status DC Multivitamins/ Calcium (Thera-M Plus) 1 tab DAILY PO Last administered on at 07:59; Start 05/20/17 at 09:00; Stop 05/21/17 at 14:59; Status DC Fish Oil (Fish Oil) 1,000 mg QHS PO Last administered on 06/14/17at 20:29; Start 05/19/17 at 21:00 Ondansetron HCl (Zofran Odt) 4 mg PRN Q6HRS PRN PO NAUSEA; Start 05/19/17 at 19 :00 Non-Formulary Medication 1 drop QID EACHEYE ; Start 05/19/17 at 21:00; Stop at 21:00; Status DC Artificial Tears (Artificial Tears) 1 drop PRN QID PRN OU DRY EYE; Start at 19:00; Stop 05/20/17 at 14:59; Status DC Lidocaine HCl (Xylocaine 2% Topical 5gm Tube) 1 missael PRN Q4HRS PRN TP PAIN; Start 05/19/17 at 20:15; Stop 05/20/17 at 14:59; Status DC Lidocaine HCl (Xylocaine 2% Topical 5gm Tube) 1 missael PRN Q4HRS PRN TP PAIN Last administered on 05/23/17at 05:41; Start 05/20/17 at 14:59 Artificial Tears (Artificial Tears) 1 drop PRN QID PRN OU DRY EYE Last administered on 05/29/17at 08:44; Start 05/20/17 at 14:59 Gabapentin (Neurontin) 600 mg TID PO Last administered on 06/01/17at 19:24; Start 05/20/17 at 21:00; Stop 06/01/17 at 23:00; Status DC Duloxetine HCl (Cymbalta) 30 mg DAILY PO Last administered on 06/03/17at 07:42; Start 05/21/17 at 09:00; Stop 06/03/17 at 18:33; Status DC Lamotrigine (LaMICtal) 150 mg DAILY PO Last administered on 05/29/17 08:40; Start 05/21/17 at 09:00; Stop 05/29/17 at 17:46; Status DC Lamotrigine (LaMICtal) 200 mg HS PO Last administered on 05/28/17at 19:45; Start 05/20/17 at 21:00; Stop 05/29/17 at 17:46; Status DC Prenat Multivit/ [place]/Iron/Folic Ac (Multivitamin ) 1 tab DAILYBFRSUP PO Last administered on 06/15/17at 16:49; Start 05/21/17 at 17:00 Fosfomycin Tromethamine (Monurol) 3 gm 1X ONCE PO Last administered on at 15:00; Start 05/21/17 at 15:00; Stop 05/21/17 at 15:01; Status DC Quetiapine Fumarate (SEROquel) 300 mg QHS PO Last administered on 05/25/17 20: 28; Start 05/23/17 at 21:00; Stop 05/26/17 at 17:47; Status DC Nystatin (Nystop) 15 missael STK-MED ONCE TP Last administered on 05/24/17at 17:40; Start 05/24/17 at 17:40; Stop 05/24/17 at 17:41; Status DC Sodium Chloride (Saline Mist Nasal) 1 missael PRN Q1HR PRN NS NASAL CONGESTION Last administered on 05/27/17at 20:38; Start 05/25/17 at 09:15 Quetiapine Fumarate (SEROquel) 200 mg QHS PO Last administered on 06/04/17at 20: 24; Start 05/26/17 at 21:00; Stop 06/05/17 at 17:39; Status DC Ketorolac Tromethamine (Acular) 1 drop Q8HRS OD Last administered on 06/03/17at 06:23; Start 05/29/17 at 14:00; Stop 06/03/17 at 13:59; Status DC Lamotrigine (LaMICtal) 200 mg BID PO Last administered on 06/03/17at 07:42; Start 05/29/17 at 21:00; Stop 06/03/17 at 18:33; Status DC Clonazepam (KlonoPIN) 1 mg DAILY PO Last administered on 06/01/17 08:07; Start 05/30/17 at 09:00; Stop 06/01/17 at 12:25; Status DC Clonazepam (KlonoPIN) 0.75 mg QHS PO Last administered on 06/07/17at 19:56; Start 05/29/17 at 21:00; Stop 06/08/17 at 21:00; Status DC Donepezil HCl (Aricept) 10 mg QHS PO Last administered on 06/06/17 20:22; Start 05/31/17 at 21:00; Stop 06/07/17 at 18:46; Status DC Clonazepam (KlonoPIN) 0.75 mg DAILY PO Last administered on 06/04/17 07:52; Start 06/02/17 at 09:00; Stop 06/04/17 at 09:01; Status DC Clonazepam (KlonoPIN) 0.5 mg DAILY PO Last administered on 06/13/17at 08:01; Start 06/05/17 at 09:00; Stop 06/13/17 at 09:01; Status DC Clonazepam (KlonoPIN) 0.5 mg HS PO Last administered on 06/10/17at 20:35; Start 06/08/17 at 21:00; Stop 06/10/17 at 21:01; Status DC Ciprofloxacin (Cipro) 250 mg BID PO Last administered on 06/06/17 08:20; Start 06/01/17 at 21:00; Stop 06/06/17 at 20:59; Status DC Gabapentin (Neurontin) 300 mg QID PO Last administered on 06/05/17at 19:42; Start 06/02/17 at 04:00; Stop 06/05/17 at 23:00; Status DC Gabapentin (Neurontin) 300 mg TID PO Last administered on 06/08/17 20:23; Start 06/06/17 at 04:00; Stop 06/08/17 at 23:00; Status DC Gabapentin (Neurontin) 300 mg BID PO ; Start 06/09/17 at 04:00; Stop 06/09/17 at 04:00; Status DC Lactobacillus Rhamnosus (Culturelle) 1 cap BID PO Last administered on at 09:01; Start 06/02/17 at 21:00 Nystatin (Mycostatin) 1 missael BID TP ; Start 06/02/17 at 21:00; Stop 06/02/17 at 21: 07; Status DC Nystatin (Mycostatin) 1 missael BID TP ; Start 06/02/17 at 21:00; Stop 06/03/17 at 07 :47; Status DC Nystatin (Nystop) 1 missael BID TP Last administered on 06/15/17at 09:03; Start 02/08 at 09:00 Lamotrigine (LaMICtal) 150 mg HS PO Last administered on 06/05/17at 19:40; Start 06/03/17 at 21:00; Stop 06/06/17 at 00:00; Status DC Duloxetine HCl (Cymbalta) 60 mg DAILY PO Last administered on 06/07/17at 09:02; Start 06/04/17 at 09:00; Stop 06/07/17 at 18:46; Status DC Lamotrigine (LaMICtal) 100 mg DAILY PO Last administered on 06/04/17at 07:54; Start 06/04/17 at 09:00; Stop 06/04/17 at 09:50; Status DC Lamotrigine (LaMICtal) 200 mg DAILY PO Last administered on 06/15/17at 09:01; Start 06/05/17 at 09:00 Lamotrigine (LaMICtal) 200 mg HS PO Last administered on 06/14/17at 20:30; Start 06/06/17 at 21:00 Lamotrigine (LaMICtal) 100 mg 1X ONCE PO Last administered on 06/04/17at 10:00 ; Start 06/04/17 at 10:00; Stop 06/04/17 at 10:01; Status DC Quetiapine Fumarate (SEROquel) 250 mg QHS PO Last administered on 06/14/17at 20: 30; Start 06/05/17 at 21:00 Duloxetine HCl (Cymbalta) 30 mg DAILY PO Last administered on 06/10/17at 07:58; Start 06/08/17 at 09:00; Stop 06/11/17 at 08:59; Status DC Gabapentin (Neurontin) 300 mg BID PO Last administered on 06/14/17at 09:08; Start 06/10/17 at 09:00; Stop 06/14/17 at 18:36; Status DC Olanzapine (ZyPREXA ZYDIS) 2.5 mg PRN Q2HR PRN PO PSYCHOSIS; Start 06/09/17 at 18:45 Clonazepam (KlonoPIN) 0.25 mg DAILY PO Last administered on 06/15/17at 09:00; Start 06/14/17 at 09:00; Stop 06/16/17 at 09:00 Clonazepam (KlonoPIN) 0.5 mg HS PO Last administered on 06/14/17at 22:25; Start 06/13/17 at 21:00; Stop 06/16/17 at 21:00 Clonazepam (KlonoPIN) 0.25 mg BID PO ; Start 06/17/17 at 09:00 Gabapentin (Neurontin) 300 mg DAILY PO Last administered on 06/15/17at 09:04; Start 06/15/17 at 09:00; Stop 06/18/17 at 08:59 Active Scripts Active Reported Vitamin D3 (Cholecalciferol (Vitamin D3)) 1,000 Unit Tablet 3,000 Unit PO QHS Systane 0.3-0.4% Eye Drops (Propylene Glycol/Peg 400) 15 Ml Drops 1 Drop EACHEYE QID Systane 0.3-0.4% Eye Drops (Propylene Glycol/Peg 400) 15 Ml Drops 1 Drop EACHEYE QIDPRN PRN Pain Reliever Plus Tablet (Aspirin/Acetaminophen/Caffeine) 1 Each Tablet 2 Each PO PRN PRN Ondansetron Hcl 4 Mg Tablet 4 Mg PO PRN Q6HRS PRN Nystatin 100,000 Unit/1 Ml Oral.susp 100,000 Unit PO Nystatin 15 Gm Cream..g. 1 Missael TP PRN BID PRN Miralax (Polyethylene Glycol 3350) 17 Gm Powd.pack 17 Gm PO HS Lidocaine Hcl 5 Ml Jel..ml. 5 Ml TOP PRN Q4HRS Ketoconazole 120 Ml Shampoo 1 Missael TP TWICE WEEKLY Ibuprofen 100 Mg/5 Ml Oral.susp 200 Mg PO PRN TID PRN Hydroxyzine Hcl 25 Mg Tablet 25 Mg PO PRN Q4HRS PRN Hydrocortisone 453.6 Gm Oint...g. 1 Missael TP PRN BID PRN Epa-Dha 720 Softgel ([place]-3/Dha/Epa/Fish Oil) 1 Each Capsule 1 Each PO QHS Donepezil Hcl 5 Mg Tablet 5 Mg PO QHS Saline Nasal [place] (Sodium Chloride) 30 Ml [place] 1 Spr NS PRN PRN Tylenol (Acetaminophen) 325 Mg Tablet 650 Mg PO PRN Q4HRS PRN Seroquel (Quetiapine Fumarate) 400 Mg Tablet 400 Mg PO HS Mirtazapine 15 Mg Tablet 15 Mg PO QHS Lamotrigine 150 Mg Tablet 150 Mg PO BID Fluticasone Propionate Nasal [place] (Fluticasone Propionate) 16 Gm [place].susp 2 [place] NS PRN BID PRN Effexor Xr (Venlafaxine Hcl) 150 Mg Cap.er.24h 150 Mg PO DAILY Multi Vitamin Daily (Multivitamin) 1 Each Tablet 1 Each PO DAILY Mucinex (Guaifenesin) 600 Mg Tablet.er 600 Mg PO PRN BID PRN Namenda (Memantine Hcl) 10 Mg Tablet 5 Mg PO DAILY Gabapentin 600 Mg Tablet 600 Mg PO QID Gabapentin 100 Mg Capsule 100 Mg PO PRN Q6HRS Clonazepam 1 Mg Tablet 1 Mg PO BID I have reviewed the current psychotropics carefully including drug interactions. Risk benefit ratio favors no change other than as noted in my dictated progress note. Diagnosis: Problems: (1) Major depression (2) Anxiety (3) Bipolar affective disorder, mixed (4) Anxiety disorder (5) Major depressive disorder, recurrent episode (6) Impulse control disorder BRIAN CHAPA MD Jun 15, 2017 19:58
[2017-06-15] MEDS: QUEtiapine 100 MG TABLET. PO SCH (20:12)
[2017-06-15] MEDS: OMEGA-3 FATTY ACIDS/FISH OIL 1,000 MG CAPSULE. PO SCH (20:13)
[2017-06-15] MEDS: CHOLECALCIFEROL (VITAMIN D3) 1,000 UNIT TABLET PO SCH (20:14)
[2017-06-15] MEDS: POLYETHYLENE GLYCOL 3350 17 GM PACKET. PO SCH (20:14)
[2017-06-16 06:24] VITALS: BP 138/55
[2017-06-16] MEDS: lamoTRIgine 100 MG TABLET. PO SCH ×2 (08:55→19:38)
[2017-06-16] MEDS: LACTOBACILLUS RHAMNOSUS GG 1 CAPSULE. PO SCH ×2 (08:55→19:38)
[2017-06-16] MEDS: GABAPENTIN 300 MG CAPSULE. PO SCH (08:55)
[2017-06-16] MEDS: NYSTATIN TOPICAL POWDER 15GM BOTTLE. TP SCH ×2 (08:56→19:39)
[2017-06-16] MEDS: clonazePAM 0.5 MG TABLET PO SCH ×2 (08:57→19:38)
[2017-06-16 16:07] VITALS: BP 98/54
[2017-06-16] MEDS: KETOCONAZOLE 2% SHAMPOO 120ML BOTTLE. TP SCH (16:21)
[2017-06-16] MEDS: PRENATAL MULTIVITAMIN TABLET. PO SCH (17:13)
[2017-06-16] MEDS: OMEGA-3 FATTY ACIDS/FISH OIL 1,000 MG CAPSULE. PO SCH (19:38)
[2017-06-16] MEDS: QUEtiapine 100 MG TABLET. PO SCH (19:38)
[2017-06-16] MEDS: POLYETHYLENE GLYCOL 3350 17 GM PACKET. PO SCH (19:39)
[2017-06-16] MEDS: CHOLECALCIFEROL (VITAMIN D3) 1,000 UNIT TABLET PO SCH (19:40)
--- NOTE | 2017-06-16 19:54 | PDOC ---
Exam Note: Greg Note: Please also refer to the separate dictated note~for this date of service dictated separately.~Patient seen individually. Discussed the patient with Nursing staff reviewed the chart.~Reviewed interim history and current functioning. Reviewed vital signs,~Labs/ Radiology~and current medications noted below. Continue current treatment with the changes noted in the dictated addendum note Assessment: Vital Signs: Vital Signs Date Time Temp Pulse Resp B/P (MAP) Pulse Ox O2 Delivery O2 Flow Rate FiO2 06/16/17 16:07 98.2 109 20 98/54 (69) 97 06/15/17 16:30 Room Air I&O Intake and Output 06/16/17 07:00 Intake Total 1180 ml Balance 1180 ml Intake Oral 1180 ml # Voids 1 Current Medications: Meds: Current Medications Acetaminophen (Tylenol) 650 mg PRN Q6HRS PRN PO PAIN / TEMP; Start 05/19/17 at 16:15; Stop 05/19/17 at 18:42; Status DC Multi-Ingredient Ointment (Analgesic [place]) 1 missael PRN QID PRN TP MUSCLE PAIN; Start 05/19/17 at 16:15 Al Hydroxide/Mg Hydroxide (Mylanta Plus Xs) 15 ml PRN AFTMEALHC PRN PO DYSPEPSIA Last administered on 05/26/17at 20:02; Start 05/19/17 at 16:15 Magnesium Hydroxide (Milk Of Magnesia) 2,400 mg PRN QHS PRN PO CONSTIPATION; Start 05/19/17 at 16:15 Clonazepam (KlonoPIN) 1 mg BID PO Last administered on 05/29/17at 08:45; Start at 21:00; Stop 05/29/17 at 17:47; Status DC Donepezil HCl (Aricept) 5 mg QHS PO Last administered on 05/30/17at 20:24; Start 05/19/17 at 21:00; Stop 05/31/17 at 18:41; Status DC Lamotrigine (LaMICtal) 150 mg BID PO Last administered on 05/20/17at 20:17; Start 05/19/17 at 21:00; Stop 05/20/17 at 20:37; Status DC Memantine (Namenda) 5 mg DAILY PO Last administered on 06/07/17at 09:02; Start 05/20/17 at 09:00; Stop 06/07/17 at 18:46; Status DC Mirtazapine (Remeron) 15 mg QHS PO Last administered on 06/06/17at 20:36; Start 05/19/17 at 21:00; Stop 06/07/17 at 18:46; Status DC Quetiapine Fumarate (SEROquel) 400 mg QHS PO Last administered on 05/22/17at 19: 57; Start 05/19/17 at 21:00; Stop 05/23/17 at 18:44; Status DC Venlafaxine HCl (Effexor) 50 mg TID PO Last administered on 05/20/17at 14:00; Start 05/19/17 at 21:00; Stop 05/20/17 at 19:25; Status DC Acetaminophen (Tylenol) 650 mg PRN Q4HRS PRN PO PAIN Last administered on at 19:43; Start 05/19/17 at 18:15 Vitamin D (Vitamin D3) 3,000 unit QHS PO Last administered on 06/16/17at 19:40; Start 05/19/17 at 21:00 Fluticasone Propionate (Flonase) 2 spray PRN BID PRN NS ALLERGIES; Start at 18:15 Gabapentin (Neurontin) 100 mg PRN Q6HRS PRN PO ANXIETY; Start 05/19/17 at 18:15 ; Stop 05/20/17 at 19:25; Status DC Guaifenesin (Mucinex Er) 600 mg PRN BID PRN PO coughing; Start 05/19/17 at 18: 15 Ketoconazole (Nizoral 2% Shampoo) 1 missael QMONFR TP Last administered on at 16:21; Start 05/26/17 at 16:00 Lidocaine HCl (Uro-Jet) 5 missael PRN Q4HRS PRN TP PAIN; Start 05/19/17 at 18:15; Stop 05/19/17 at 20:05; Status DC Nystatin (Mycostatin) 1 missael PRN BID PRN TP itching; Start 05/19/17 at 18:15; Stop 06/02/17 at 11:13; Status DC Polyethylene Glycol (miraLAX) 17 gm HS PO Last administered on 06/16/17at 19:39 ; Start 05/19/17 at 21:00 Gabapentin (Neurontin) 600 mg QID PO Last administered on 05/20/17at 17:21; Start 05/19/17 at 21:00; Stop 05/20/17 at 19:25; Status DC Multivitamins/ Calcium (Thera-M Plus) 1 tab DAILY PO Last administered on at 07:59; Start 05/20/17 at 09:00; Stop 05/21/17 at 14:59; Status DC Fish Oil (Fish Oil) 1,000 mg QHS PO Last administered on 06/16/17at 19:38; Start 05/19/17 at 21:00 Ondansetron HCl (Zofran Odt) 4 mg PRN Q6HRS PRN PO NAUSEA; Start 05/19/17 at 19 :00 Non-Formulary Medication 1 drop QID EACHEYE ; Start 05/19/17 at 21:00; Stop at 21:00; Status DC Artificial Tears (Artificial Tears) 1 drop PRN QID PRN OU DRY EYE; Start at 19:00; Stop 05/20/17 at 14:59; Status DC Lidocaine HCl (Xylocaine 2% Topical 5gm Tube) 1 missael PRN Q4HRS PRN TP PAIN; Start 05/19/17 at 20:15; Stop 05/20/17 at 14:59; Status DC Lidocaine HCl (Xylocaine 2% Topical 5gm Tube) 1 missael PRN Q4HRS PRN TP PAIN Last administered on 05/23/17at 05:41; Start 05/20/17 at 14:59 Artificial Tears (Artificial Tears) 1 drop PRN QID PRN OU DRY EYE Last administered on 05/29/17at 08:44; Start 05/20/17 at 14:59 Gabapentin (Neurontin) 600 mg TID PO Last administered on 06/01/17at 19:24; Start 05/20/17 at 21:00; Stop 06/01/17 at 23:00; Status DC Duloxetine HCl (Cymbalta) 30 mg DAILY PO Last administered on 06/03/17at 07:42; Start 05/21/17 at 09:00; Stop 06/03/17 at 18:33; Status DC Lamotrigine (LaMICtal) 150 mg DAILY PO Last administered on 05/29/17at 08:40; Start 05/21/17 at 09:00; Stop 05/29/17 at 17:46; Status DC Lamotrigine (LaMICtal) 200 mg HS PO Last administered on 05/28/17at 19:45; Start 05/20/17 at 21:00; Stop 05/29/17 at 17:46; Status DC Prenat Multivit/ [place]/Iron/Folic Ac (Multivitamin ) 1 tab DAILYBFRSUP PO Last administered on 06/16/17at 17:13; Start 05/21/17 at 17:00 Fosfomycin Tromethamine (Monurol) 3 gm 1X ONCE PO Last administered on at 15:00; Start 05/21/17 at 15:00; Stop 05/21/17 at 15:01; Status DC Quetiapine Fumarate (SEROquel) 300 mg QHS PO Last administered on 05/25/17at 20: 28; Start 05/23/17 at 21:00; Stop 05/26/17 at 17:47; Status DC Nystatin (Nystop) 15 missael STK-MED ONCE TP Last administered on 05/24/17at 17:40; Start 05/24/17 at 17:40; Stop 05/24/17 at 17:41; Status DC Sodium Chloride (Saline Mist Nasal) 1 missael PRN Q1HR PRN NS NASAL CONGESTION Last administered on 05/27/17at 20:38; Start 05/25/17 at 09:15 Quetiapine Fumarate (SEROquel) 200 mg QHS PO Last administered on 06/04/17at 20: 24; Start 05/26/17 at 21:00; Stop 06/05/17 at 17:39; Status DC Ketorolac Tromethamine (Acular) 1 drop Q8HRS OD Last administered on 06/03/17at 06:23; Start 05/29/17 at 14:00; Stop 06/03/17 at 13:59; Status DC Lamotrigine (LaMICtal) 200 mg BID PO Last administered on 06/03/17at 07:42; Start 05/29/17 at 21:00; Stop 06/03/17 at 18:33; Status DC Clonazepam (KlonoPIN) 1 mg DAILY PO Last administered on 06/01/17at 08:07; Start 05/30/17 at 09:00; Stop 06/01/17 at 12:25; Status DC Clonazepam (KlonoPIN) 0.75 mg QHS PO Last administered on 06/07/17at 19:56; Start 05/29/17 at 21:00; Stop 06/08/17 at 21:00; Status DC Donepezil HCl (Aricept) 10 mg QHS PO Last administered on 06/06/17at 20:22; Start 05/31/17 at 21:00; Stop 06/07/17 at 18:46; Status DC Clonazepam (KlonoPIN) 0.75 mg DAILY PO Last administered on 06/04/17at 07:52; Start 06/02/17 at 09:00; Stop 06/04/17 at 09:01; Status DC Clonazepam (KlonoPIN) 0.5 mg DAILY PO Last administered on 06/13/17at 08:01; Start 06/05/17 at 09:00; Stop 06/13/17 at 09:01; Status DC Clonazepam (KlonoPIN) 0.5 mg HS PO Last administered on 06/10/17at 20:35; Start 06/08/17 at 21:00; Stop 06/10/17 at 21:01; Status DC Ciprofloxacin (Cipro) 250 mg BID PO Last administered on 06/06/17at 08:20; Start 06/01/17 at 21:00; Stop 06/06/17 at 20:59; Status DC Gabapentin (Neurontin) 300 mg QID PO Last administered on 06/05/17at 19:42; Start 06/02/17 at 04:00; Stop 06/05/17 at 23:00; Status DC Gabapentin (Neurontin) 300 mg TID PO Last administered on 06/08/17at 20:23; Start 06/06/17 at 04:00; Stop 06/08/17 at 23:00; Status DC Gabapentin (Neurontin) 300 mg BID PO ; Start 06/09/17 at 04:00; Stop 06/09/17 at 04:00; Status DC Lactobacillus Rhamnosus (Culturelle) 1 cap BID PO Last administered on at 19:38; Start 06/02/17 at 21:00 Nystatin (Mycostatin) 1 missael BID TP ; Start 06/02/17 at 21:00; Stop 06/02/17 at 21: 07; Status DC Nystatin (Mycostatin) 1 missael BID TP ; Start 06/02/17 at 21:00; Stop 06/03/17 at 07 :47; Status DC Nystatin (Nystop) 1 missael BID TP Last administered on 06/16/17at 19:39; Start 02/08 at 09:00 Lamotrigine (LaMICtal) 150 mg HS PO Last administered on 06/05/17at 19:40; Start 06/03/17 at 21:00; Stop 06/06/17 at 00:00; Status DC Duloxetine HCl (Cymbalta) 60 mg DAILY PO Last administered on 06/07/17at 09:02; Start 06/04/17 at 09:00; Stop 06/07/17 at 18:46; Status DC Lamotrigine (LaMICtal) 100 mg DAILY PO Last administered on 06/04/17at 07:54; Start 06/04/17 at 09:00; Stop 06/04/17 at 09:50; Status DC Lamotrigine (LaMICtal) 200 mg DAILY PO Last administered on 06/16/17at 08:55; Start 06/05/17 at 09:00 Lamotrigine (LaMICtal) 200 mg HS PO Last administered on 06/16/17at 19:38; Start 06/06/17 at 21:00 Lamotrigine (LaMICtal) 100 mg 1X ONCE PO Last administered on 06/04/17at 10:00 ; Start 06/04/17 at 10:00; Stop 06/04/17 at 10:01; Status DC Quetiapine Fumarate (SEROquel) 250 mg QHS PO Last administered on 06/16/17at 19: 38; Start 06/05/17 at 21:00 Duloxetine HCl (Cymbalta) 30 mg DAILY PO Last administered on 06/10/17at 07:58; Start 06/08/17 at 09:00; Stop 06/11/17 at 08:59; Status DC Gabapentin (Neurontin) 300 mg BID PO Last administered on 06/14/17at 09:08; Start 06/10/17 at 09:00; Stop 06/14/17 at 18:36; Status DC Olanzapine (ZyPREXA ZYDIS) 2.5 mg PRN Q2HR PRN PO PSYCHOSIS; Start 06/09/17 at 18:45 Clonazepam (KlonoPIN) 0.25 mg DAILY PO Last administered on 06/16/17at 08:57; Start 06/14/17 at 09:00; Stop 06/16/17 at 09:00; Status DC Clonazepam (KlonoPIN) 0.5 mg HS PO Last administered on 06/16/17at 19:38; Start 06/13/17 at 21:00; Stop 06/16/17 at 21:00 Clonazepam (KlonoPIN) 0.25 mg BID PO ; Start 06/17/17 at 09:00 Gabapentin (Neurontin) 300 mg DAILY PO Last administered on 06/16/17at 08:55; Start 06/15/17 at 09:00; Stop 06/18/17 at 08:59 Active Scripts Active Reported Vitamin D3 (Cholecalciferol (Vitamin D3)) 1,000 Unit Tablet 3,000 Unit PO QHS Systane 0.3-0.4% Eye Drops (Propylene Glycol/Peg 400) 15 Ml Drops 1 Drop EACHEYE QID Systane 0.3-0.4% Eye Drops (Propylene Glycol/Peg 400) 15 Ml Drops 1 Drop EACHEYE QIDPRN PRN Pain Reliever Plus Tablet (Aspirin/Acetaminophen/Caffeine) 1 Each Tablet 2 Each PO PRN PRN Ondansetron Hcl 4 Mg Tablet 4 Mg PO PRN Q6HRS PRN Nystatin 100,000 Unit/1 Ml Oral.susp 100,000 Unit PO Nystatin 15 Gm Cream..g. 1 [place] TP PRN BID PRN Miralax (Polyethylene Glycol 3350) 17 Gm Powd.pack 17 Gm PO HS Lidocaine Hcl 5 Ml Jel..ml. 5 Ml TOP PRN Q4HRS Ketoconazole 120 Ml Shampoo 1 [place] TP TWICE WEEKLY Ibuprofen 100 Mg/5 Ml Oral.susp 200 Mg PO PRN TID PRN Hydroxyzine Hcl 25 Mg Tablet 25 Mg PO PRN Q4HRS PRN Hydrocortisone 453.6 Gm Oint...g. 1 [place] TP PRN BID PRN Epa-Dha 720 Softgel ([place]-3/Dha/Epa/Fish Oil) 1 Each Capsule 1 Each PO QHS Donepezil Hcl 5 Mg Tablet 5 Mg PO QHS Saline Nasal [place] (Sodium Chloride) 30 Ml [place] 1 Spr NS PRN PRN Tylenol (Acetaminophen) 325 Mg Tablet 650 Mg PO PRN Q4HRS PRN Seroquel (Quetiapine Fumarate) 400 Mg Tablet 400 Mg PO HS Mirtazapine 15 Mg Tablet 15 Mg PO QHS Lamotrigine 150 Mg Tablet 150 Mg PO BID Fluticasone Propionate Nasal Gary (Fluticasone Propionate) 16 Gm Gary.susp 2 Gary NS PRN BID PRN Effexor Xr (Venlafaxine Hcl) 150 Mg Cap.er.24h 150 Mg PO DAILY Multi Vitamin Daily (Multivitamin) 1 Each Tablet 1 Each PO DAILY Mucinex (Guaifenesin) 600 Mg Tablet.er 600 Mg PO PRN BID PRN Namenda (Memantine Hcl) 10 Mg Tablet 5 Mg PO DAILY Gabapentin 600 Mg Tablet 600 Mg PO QID Gabapentin 100 Mg Capsule 100 Mg PO PRN Q6HRS Clonazepam 1 Mg Tablet 1 Mg PO BID I have reviewed the current psychotropics carefully including drug interactions. Risk benefit ratio favors no change other than as noted in my dictated progress note. Diagnosis: Problems: (1) Major depression (2) Anxiety (3) Bipolar affective disorder, mixed (4) Anxiety disorder (5) Major depressive disorder, recurrent episode (6) Impulse control disorder BRIAN CHAPA MD Jun 16, 2017 19:54
--- NOTE | 2017-06-16 21:41 | PN ---
DATE: 06/14/2017 This late entry 06/14/2017 covers elements not covered in my initial note 06/14/2017. Met with the patient evening of 06/14/2017. SUBJECTIVE: The patient gets somatically preoccupied at times. States she is paralyzed, though in fact she is ambulating a little better, tearful in the evening as I met with her at length. She talked to about being frustrated with herself, had a telephone call with her daughter. REVIEW OF SYSTEMS: Ambulation impaired, in wheelchair. No CV, , pulmonary, eye system symptoms on review and the somatic symptoms noted above. MENTAL STATUS EXAM: Reasonably oriented. Speech coherent, little anxious at times. Abstraction fair, computation impaired, language function intact, attention span short. Mood and affect somewhat withdrawn, depressed, but improved. LABORATORY DATA: Reviewed. IMPRESSION: Bipolar 1 disorder, depressed, in partial remission. Rest unchanged. PLAN: Taper and stop the Neurontin. Continue rest unchanged. BRIAN CHAPA MD DR: ANTONIO/[email or web address] JOB#: [id number] / [id number]
--- NOTE | 2017-06-17 02:49 | PN ---
DATE: 06/15/2017 PSYCHIATRIC PROGRESS NOTE This late entry 06/15/2017 covers elements not covered in my initial note 06/15/2017. SUBJECTIVE: I met with the patient individually and also staffed at treatment team meeting with the entire team and the patient's sister, Sanjana, attended the conference. Lengthy discussion about the patient's diagnosis, progress, current medications improvement. She is starting to ambulate back on her own. Slept reasonably well. Compliant with medications. Klonopin is being tapered as is the Neurontin. She remains on Lamictal, Seroquel. Ambulation still somewhat impaired with unsteady gait walker. REVIEW OF SYSTEMS: No CV, , pulmonary, eye system symptoms on review. She has vague somatic symptoms and at times feels she is paralyzed. MENTAL STATUS EXAM: Oriented to herself and situation. Speech coherent, less pressured. Abstraction fair, computation impaired, language function intact. Mood and affect is improved, less tearful. LABORATORIES: Reviewed. IMPRESSION: Bipolar 1 disorder, depressed, in partial remission. Rest unchanged. PLAN: Continue psychotropics and the taper of Klonopin and Neurontin. MAN Vidal CHAPA MD DR: ANTONIO/gianfranco JOB#: [id number] / [id number]
[2017-06-17 06:45] VITALS: BP 119/60
[2017-06-17] MEDS: GABAPENTIN 300 MG CAPSULE. PO SCH (08:22)
[2017-06-17] MEDS: LACTOBACILLUS RHAMNOSUS GG 1 CAPSULE. PO SCH ×2 (08:22→20:36)
[2017-06-17] MEDS: lamoTRIgine 100 MG TABLET. PO SCH ×2 (08:22→20:37)
[2017-06-17] MEDS: clonazePAM 0.5 MG TABLET PO SCH ×2 (08:23→21:50)
[2017-06-17] MEDS: NYSTATIN TOPICAL POWDER 15GM BOTTLE. TP SCH ×2 (08:23→21:50)
[2017-06-17 16:13] VITALS: BP 131/66
[2017-06-17] MEDS: PRENATAL MULTIVITAMIN TABLET. PO SCH (17:41)
[2017-06-17] MEDS: CHOLECALCIFEROL (VITAMIN D3) 1,000 UNIT TABLET PO SCH (20:36)
[2017-06-17] MEDS: POLYETHYLENE GLYCOL 3350 17 GM PACKET. PO SCH (20:37)
[2017-06-17] MEDS: QUEtiapine 100 MG TABLET. PO SCH (20:37)
[2017-06-17] MEDS: OMEGA-3 FATTY ACIDS/FISH OIL 1,000 MG CAPSULE. PO SCH (21:50)
--- NOTE | 2017-06-17 22:02 | PDOC ---
Exam Note: Greg Note: Please also refer to the separate dictated note~for this date of service dictated separately.~Patient seen individually. Discussed the patient with Nursing staff reviewed the chart.~Reviewed interim history and current functioning. Reviewed vital signs,~Labs/ Radiology~and current medications noted below. Continue current treatment with the changes noted in the dictated addendum note Assessment: Vital Signs: Vital Signs Date Time Temp Pulse Resp B/P (MAP) Pulse Ox O2 Delivery O2 Flow Rate FiO2 06/17/17 16:13 98.0 107 19 131/66 (87) 97 06/15/17 16:30 Room Air I&O Intake and Output 06/17/17 07:00 Intake Total 1340 ml Balance 1340 ml Intake Oral 1340 ml # Voids 1 Current Medications: Meds: Current Medications Acetaminophen (Tylenol) 650 mg PRN Q6HRS PRN PO PAIN / TEMP; Start 05/19/17 at 16:15; Stop 05/19/17 at 18:42; Status DC Multi-Ingredient Ointment (Analgesic Industry) 1 missael PRN QID PRN TP MUSCLE PAIN; Start 05/19/17 at 16:15 Al Hydroxide/Mg Hydroxide (Mylanta Plus Xs) 15 ml PRN AFTMEALHC PRN PO DYSPEPSIA Last administered on 05/26/17at 20:02; Start 05/19/17 at 16:15 Magnesium Hydroxide (Milk Of Magnesia) 2,400 mg PRN QHS PRN PO CONSTIPATION; Start 05/19/17 at 16:15 Clonazepam (KlonoPIN) 1 mg BID PO Last administered on 05/29/17at 08:45; Start at 21:00; Stop 05/29/17 at 17:47; Status DC Donepezil HCl (Aricept) 5 mg QHS PO Last administered on 05/30/17at 20:24; Start 05/19/17 at 21:00; Stop 05/31/17 at 18:41; Status DC Lamotrigine (LaMICtal) 150 mg BID PO Last administered on 05/20/17at 20:17; Start 05/19/17 at 21:00; Stop 05/20/17 at 20:37; Status DC Memantine (Namenda) 5 mg DAILY PO Last administered on 06/07/17at 09:02; Start 05/20/17 at 09:00; Stop 06/07/17 at 18:46; Status DC Mirtazapine (Remeron) 15 mg QHS PO Last administered on 06/06/17at 20:36; Start 05/19/17 at 21:00; Stop 06/07/17 at 18:46; Status DC Quetiapine Fumarate (SEROquel) 400 mg QHS PO Last administered on 05/22/17at 19: 57; Start 05/19/17 at 21:00; Stop 05/23/17 at 18:44; Status DC Venlafaxine HCl (Effexor) 50 mg TID PO Last administered on 05/20/17at 14:00; Start 05/19/17 at 21:00; Stop 05/20/17 at 19:25; Status DC Acetaminophen (Tylenol) 650 mg PRN Q4HRS PRN PO PAIN Last administered on at 19:43; Start 05/19/17 at 18:15 Vitamin D (Vitamin D3) 3,000 unit QHS PO Last administered on 06/17/17at 20:36; Start 05/19/17 at 21:00 Fluticasone Propionate (Flonase) 2 spray PRN BID PRN NS ALLERGIES; Start at 18:15 Gabapentin (Neurontin) 100 mg PRN Q6HRS PRN PO ANXIETY; Start 05/19/17 at 18:15 ; Stop 05/20/17 at 19:25; Status DC Guaifenesin (Mucinex Er) 600 mg PRN BID PRN PO coughing; Start 05/19/17 at 18: 15 Ketoconazole (Nizoral 2% Shampoo) 1 missael QMONFR TP Last administered on at 16:21; Start 05/26/17 at 16:00 Lidocaine HCl (Uro-Jet) 5 missael PRN Q4HRS PRN TP PAIN; Start 05/19/17 at 18:15; Stop 05/19/17 at 20:05; Status DC Nystatin (Mycostatin) 1 missael PRN BID PRN TP itching; Start 05/19/17 at 18:15; Stop 06/02/17 at 11:13; Status DC Polyethylene Glycol (miraLAX) 17 gm HS PO Last administered on 06/17/17at 20:37 ; Start 05/19/17 at 21:00 Gabapentin (Neurontin) 600 mg QID PO Last administered on 05/20/17at 17:21; Start 05/19/17 at 21:00; Stop 05/20/17 at 19:25; Status DC Multivitamins/ Calcium (Thera-M Plus) 1 tab DAILY PO Last administered on at 07:59; Start 05/20/17 at 09:00; Stop 05/21/17 at 14:59; Status DC Fish Oil (Fish Oil) 1,000 mg QHS PO Last administered on 06/17/17at 21:50; Start 05/19/17 at 21:00 Ondansetron HCl (Zofran Odt) 4 mg PRN Q6HRS PRN PO NAUSEA; Start 05/19/17 at 19 :00 Non-Formulary Medication 1 drop QID EACHEYE ; Start 05/19/17 at 21:00; Stop at 21:00; Status DC Artificial Tears (Artificial Tears) 1 drop PRN QID PRN OU DRY EYE; Start at 19:00; Stop 05/20/17 at 14:59; Status DC Lidocaine HCl (Xylocaine 2% Topical 5gm Tube) 1 missael PRN Q4HRS PRN TP PAIN; Start 05/19/17 at 20:15; Stop 05/20/17 at 14:59; Status DC Lidocaine HCl (Xylocaine 2% Topical 5gm Tube) 1 missael PRN Q4HRS PRN TP PAIN Last administered on 05/23/17at 05:41; Start 05/20/17 at 14:59 Artificial Tears (Artificial Tears) 1 drop PRN QID PRN OU DRY EYE Last administered on 05/29/17at 08:44; Start 05/20/17 at 14:59 Gabapentin (Neurontin) 600 mg TID PO Last administered on 06/01/17at 19:24; Start 05/20/17 at 21:00; Stop 06/01/17 at 23:00; Status DC Duloxetine HCl (Cymbalta) 30 mg DAILY PO Last administered on 06/03/17at 07:42; Start 05/21/17 at 09:00; Stop 06/03/17 at 18:33; Status DC Lamotrigine (LaMICtal) 150 mg DAILY PO Last administered on 05/29/17at 08:40; Start 05/21/17 at 09:00; Stop 05/29/17 at 17:46; Status DC Lamotrigine (LaMICtal) 200 mg HS PO Last administered on 05/28/17at 19:45; Start 05/20/17 at 21:00; Stop 05/29/17 at 17:46; Status DC Prenat Multivit/ [place]/Iron/Folic Ac (Multivitamin ) 1 tab DAILYBFRSUP PO Last administered on 06/17/17at 17:41; Start 05/21/17 at 17:00 Fosfomycin Tromethamine (Monurol) 3 gm 1X ONCE PO Last administered on at 15:00; Start 05/21/17 at 15:00; Stop 05/21/17 at 15:01; Status DC Quetiapine Fumarate (SEROquel) 300 mg QHS PO Last administered on 05/25/17at 20: 28; Start 05/23/17 at 21:00; Stop 05/26/17 at 17:47; Status DC Nystatin (Nystop) 15 missael STK-MED ONCE TP Last administered on 05/24/17at 17:40; Start 05/24/17 at 17:40; Stop 05/24/17 at 17:41; Status DC Sodium Chloride (Saline Mist Nasal) 1 missael PRN Q1HR PRN NS NASAL CONGESTION Last administered on 05/27/17at 20:38; Start 05/25/17 at 09:15 Quetiapine Fumarate (SEROquel) 200 mg QHS PO Last administered on 06/04/17at 20: 24; Start 05/26/17 at 21:00; Stop 06/05/17 at 17:39; Status DC Ketorolac Tromethamine (Acular) 1 drop Q8HRS OD Last administered on 06/03/17at 06:23; Start 05/29/17 at 14:00; Stop 06/03/17 at 13:59; Status DC Lamotrigine (LaMICtal) 200 mg BID PO Last administered on 06/03/17at 07:42; Start 05/29/17 at 21:00; Stop 06/03/17 at 18:33; Status DC Clonazepam (KlonoPIN) 1 mg DAILY PO Last administered on 06/01/17at 08:07; Start 05/30/17 at 09:00; Stop 06/01/17 at 12:25; Status DC Clonazepam (KlonoPIN) 0.75 mg QHS PO Last administered on 06/07/17at 19:56; Start 05/29/17 at 21:00; Stop 06/08/17 at 21:00; Status DC Donepezil HCl (Aricept) 10 mg QHS PO Last administered on 06/06/17at 20:22; Start 05/31/17 at 21:00; Stop 06/07/17 at 18:46; Status DC Clonazepam (KlonoPIN) 0.75 mg DAILY PO Last administered on 06/04/17at 07:52; Start 06/02/17 at 09:00; Stop 06/04/17 at 09:01; Status DC Clonazepam (KlonoPIN) 0.5 mg DAILY PO Last administered on 06/13/17at 08:01; Start 06/05/17 at 09:00; Stop 06/13/17 at 09:01; Status DC Clonazepam (KlonoPIN) 0.5 mg HS PO Last administered on 06/10/17at 20:35; Start 06/08/17 at 21:00; Stop 06/10/17 at 21:01; Status DC Ciprofloxacin (Cipro) 250 mg BID PO Last administered on 06/06/17at 08:20; Start 06/01/17 at 21:00; Stop 06/06/17 at 20:59; Status DC Gabapentin (Neurontin) 300 mg QID PO Last administered on 06/05/17at 19:42; Start 06/02/17 at 04:00; Stop 06/05/17 at 23:00; Status DC Gabapentin (Neurontin) 300 mg TID PO Last administered on 06/08/17at 20:23; Start 06/06/17 at 04:00; Stop 06/08/17 at 23:00; Status DC Gabapentin (Neurontin) 300 mg BID PO ; Start 06/09/17 at 04:00; Stop 06/09/17 at 04:00; Status DC Lactobacillus Rhamnosus (Culturelle) 1 cap BID PO Last administered on at 20:36; Start 06/02/17 at 21:00 Nystatin (Mycostatin) 1 missael BID TP ; Start 06/02/17 at 21:00; Stop 06/02/17 at 21: 07; Status DC Nystatin (Mycostatin) 1 missael BID TP ; Start 06/02/17 at 21:00; Stop 06/03/17 at 07 :47; Status DC Nystatin (Nystop) 1 missael BID TP Last administered on 06/17/17at 21:50; Start 02/08 at 09:00 Lamotrigine (LaMICtal) 150 mg HS PO Last administered on 06/05/17at 19:40; Start 06/03/17 at 21:00; Stop 06/06/17 at 00:00; Status DC Duloxetine HCl (Cymbalta) 60 mg DAILY PO Last administered on 06/07/17at 09:02; Start 06/04/17 at 09:00; Stop 06/07/17 at 18:46; Status DC Lamotrigine (LaMICtal) 100 mg DAILY PO Last administered on 06/04/17at 07:54; Start 06/04/17 at 09:00; Stop 06/04/17 at 09:50; Status DC Lamotrigine (LaMICtal) 200 mg DAILY PO Last administered on 06/17/17at 08:22; Start 06/05/17 at 09:00 Lamotrigine (LaMICtal) 200 mg HS PO Last administered on 06/17/17at 20:37; Start 06/06/17 at 21:00 Lamotrigine (LaMICtal) 100 mg 1X ONCE PO Last administered on 06/04/17at 10:00 ; Start 06/04/17 at 10:00; Stop 06/04/17 at 10:01; Status DC Quetiapine Fumarate (SEROquel) 250 mg QHS PO Last administered on 06/17/17at 20: 37; Start 06/05/17 at 21:00 Duloxetine HCl (Cymbalta) 30 mg DAILY PO Last administered on 06/10/17at 07:58; Start 06/08/17 at 09:00; Stop 06/11/17 at 08:59; Status DC Gabapentin (Neurontin) 300 mg BID PO Last administered on 06/14/17at 09:08; Start 06/10/17 at 09:00; Stop 06/14/17 at 18:36; Status DC Olanzapine (ZyPREXA ZYDIS) 2.5 mg PRN Q2HR PRN PO PSYCHOSIS; Start 06/09/17 at 18:45 Clonazepam (KlonoPIN) 0.25 mg DAILY PO Last administered on 06/16/17at 08:57; Start 06/14/17 at 09:00; Stop 06/16/17 at 09:00; Status DC Clonazepam (KlonoPIN) 0.5 mg HS PO Last administered on 06/16/17at 19:38; Start 06/13/17 at 21:00; Stop 06/16/17 at 21:00; Status DC Clonazepam (KlonoPIN) 0.25 mg BID PO Last administered on 06/17/17at 21:50; Start 06/17/17 at 09:00 Gabapentin (Neurontin) 300 mg DAILY PO Last administered on 06/17/17at 08:22; Start 06/15/17 at 09:00; Stop 06/18/17 at 08:59 Active Scripts Active Reported Vitamin D3 (Cholecalciferol (Vitamin D3)) 1,000 Unit Tablet 3,000 Unit PO QHS Systane 0.3-0.4% Eye Drops (Propylene Glycol/Peg 400) 15 Ml Drops 1 Drop EACHEYE QID Systane 0.3-0.4% Eye Drops (Propylene Glycol/Peg 400) 15 Ml Drops 1 Drop EACHEYE QIDPRN PRN Pain Reliever Plus Tablet (Aspirin/Acetaminophen/Caffeine) 1 Each Tablet 2 Each PO PRN PRN Ondansetron Hcl 4 Mg Tablet 4 Mg PO PRN Q6HRS PRN Nystatin 100,000 Unit/1 Ml Oral.susp 100,000 Unit PO Nystatin 15 Gm Cream..g. 1 Missael TP PRN BID PRN Miralax (Polyethylene Glycol 3350) 17 Gm Powd.pack 17 Gm PO HS Lidocaine Hcl 5 Ml Jel..ml. 5 Ml TOP PRN Q4HRS Ketoconazole 120 Ml Shampoo 1 Missael TP TWICE WEEKLY Ibuprofen 100 Mg/5 Ml Oral.susp 200 Mg PO PRN TID PRN Hydroxyzine Hcl 25 Mg Tablet 25 Mg PO PRN Q4HRS PRN Hydrocortisone 453.6 Gm Oint...g. 1 Missael TP PRN BID PRN Epa-Dha 720 Softgel ([place]-3/Dha/Epa/Fish Oil) 1 Each Capsule 1 Each PO QHS Donepezil Hcl 5 Mg Tablet 5 Mg PO QHS Saline Nasal Oriental (Sodium Chloride) 30 Ml Oriental 1 Spr NS PRN PRN Tylenol (Acetaminophen) 325 Mg Tablet 650 Mg PO PRN Q4HRS PRN Seroquel (Quetiapine Fumarate) 400 Mg Tablet 400 Mg PO HS Mirtazapine 15 Mg Tablet 15 Mg PO QHS Lamotrigine 150 Mg Tablet 150 Mg PO BID Fluticasone Propionate Nasal Oriental (Fluticasone Propionate) 16 Gm Oriental.susp 2 Oriental NS PRN BID PRN Effexor Xr (Venlafaxine Hcl) 150 Mg Cap.er.24h 150 Mg PO DAILY Multi Vitamin Daily (Multivitamin) 1 Each Tablet 1 Each PO DAILY Mucinex (Guaifenesin) 600 Mg Tablet.er 600 Mg PO PRN BID PRN Namenda (Memantine Hcl) 10 Mg Tablet 5 Mg PO DAILY Gabapentin 600 Mg Tablet 600 Mg PO QID Gabapentin 100 Mg Capsule 100 Mg PO PRN Q6HRS Clonazepam 1 Mg Tablet 1 Mg PO BID I have reviewed the current psychotropics carefully including drug interactions. Risk benefit ratio favors no change other than as noted in my dictated progress note. Diagnosis: Problems: (1) Major depression (2) Anxiety (3) Bipolar affective disorder, mixed (4) Anxiety disorder (5) Major depressive disorder, recurrent episode (6) Impulse control disorder BRIAN CHAPA MD Jun 17, 2017 22:02
[2017-06-18 06:17] VITALS: BP 149/80
[2017-06-18] MEDS: LACTOBACILLUS RHAMNOSUS GG 1 CAPSULE. PO SCH ×2 (07:33→20:02)
[2017-06-18] MEDS: lamoTRIgine 100 MG TABLET. PO SCH ×2 (07:33→20:03)
[2017-06-18] MEDS: NYSTATIN TOPICAL POWDER 15GM BOTTLE. TP SCH ×2 (07:33→20:10)
[2017-06-18] MEDS: PRENATAL MULTIVITAMIN TABLET. PO SCH (07:35)
[2017-06-18] MEDS: clonazePAM 0.5 MG TABLET PO SCH ×2 (07:36→20:06)
--- NOTE | 2017-06-18 10:06 | PN ---
DATE: 06/16/2017 This late entry 06/16/2017 covers elements not covered in my initial note 06/16/2017. Met with the patient evening of 06/16/2017. The patient did well previous evening, slept 7 hours, ambulates with walker, which is an improvement, takes herself to the bathroom and then lowered herself on the floor at one point. No injury noted. Ambulation impaired with walker. No CV, , pulmonary, eye system symptoms on review. Less somatically preoccupied, less labile. No crying spells as I met with her. MENTAL STATUS EXAM: Reasonably oriented. Speech coherent. Mood and affect improved. No suicidal or homicidal ideation. LABORATORY DATA: Reviewed. IMPRESSION: Bipolar 1 disorder, depressed, in partial remission. Rest unchanged. PLAN: Continue psychotropics mentioned in my initial note. Neurontin is being tapered and stopped. Several of her psychotropics have been stopped and she is responding well to current regimen so far. BRIAN CHAPA MD DR: ANTONIO/gianfranco JOB#: [id number] / [id number]
--- NOTE | 2017-06-18 10:07 | PN ---
DATE: 06/17/2017 This late entry 06/17/2017 covers elements not covered in my initial note 06/17/2017. Met with the patient evening of 06/17/2017. The patient has done well, less labile, less crying, less anxious. Ambulation impaired with walker. No CV, , pulmonary, eye system symptoms on review. MENTAL STATUS EXAM: Reasonably oriented. Speech coherent, abstraction fair, computation impaired, language function intact, attention span short. Mood and affect showing improvement. LABORATORY DATA: Reviewed. IMPRESSION: Bipolar 1 disorder, depressed, in partial remission; anxiety disorder, unspecified. PLAN: Continue psychotropics mentioned in my initial note. MAN Vidal CHAPA MD DR: ANTONIO/gianfranco JOB#: [id number] / [id number]
[2017-06-18 16:31] VITALS: BP 129/68
[2017-06-18] MEDS: CHOLECALCIFEROL (VITAMIN D3) 1,000 UNIT TABLET PO SCH (20:03)
[2017-06-18] MEDS: QUEtiapine 100 MG TABLET. PO SCH (20:03)
[2017-06-18] MEDS: OMEGA-3 FATTY ACIDS/FISH OIL 1,000 MG CAPSULE. PO SCH (20:03)
[2017-06-18] MEDS: POLYETHYLENE GLYCOL 3350 17 GM PACKET. PO SCH (20:04)
[2017-06-19 06:57] VITALS: BP 108/65
[2017-06-19 08:24] LABS: BASO % 1 % (0-3); EOS # 0.1 x10^3/uL (0.0-0.7); EOS % 2 % (0-3); HEMATOCRIT 38.2 % (36.0-47.0); HEMOGLOBIN 12.6 g/dL (12.0-15.5); LYMPH # 0.6 x10^3/uL (1.0-4.8); LYMPH % 16 % (24-48); MEAN CORPUSCULAR HEMOGLOBIN 27 pg (25-35); MEAN CORPUSCULAR HGB CONC 33 g/dL (31-37); MEAN CORPUSCULAR VOLUME 82 fL (79-100); MONO # 0.4 x10^3/uL (0.0-1.1); MONO % 12 % (0-9); NEUT # 2.5 x10^3uL (1.8-7.7); NEUT % 69 % (31-73); PLATELET COUNT 253 x10^3/uL (140-400); RED BLOOD COUNT 4.64 x10^6/uL (3.50-5.40); RED CELL DISTRIBUTION WIDTH 16.2 % (11.5-14.5); WHITE BLOOD COUNT 3.7 x10^3/uL (4.0-11.0)
[2017-06-19] MEDS: lamoTRIgine 100 MG TABLET. PO SCH ×2 (08:24→19:25)
[2017-06-19] MEDS: LACTOBACILLUS RHAMNOSUS GG 1 CAPSULE. PO SCH ×2 (08:24→19:25)
[2017-06-19] MEDS: clonazePAM 0.5 MG TABLET PO SCH ×2 (08:26→19:28)
[2017-06-19 08:37] LABS: ALBUMIN 3.8 g/dL (3.4-5.0); ALBUMIN/GLOBULIN RATIO 1.1 (1.0-1.7); CALCIUM 9.8 mg/dL (8.5-10.1); CREATININE 1.3 mg/dL (0.6-1.0); GFR 40.2; POTASSIUM 4.2 mmol/L (3.5-5.1); TOTAL BILIRUBIN 0.4 mg/dL (0.2-1.0); TOTAL PROTEIN 7.4 g/dL (6.4-8.2)
[2017-06-19] MEDS: KETOCONAZOLE 2% SHAMPOO 120ML BOTTLE. TP SCH (10:47)
[2017-06-19] MEDS: NYSTATIN TOPICAL POWDER 15GM BOTTLE. TP SCH ×2 (10:47→19:28)
[2017-06-19 15:51] VITALS: BP 136/74
[2017-06-19] MEDS: PRENATAL MULTIVITAMIN TABLET. PO SCH (16:49)
--- NOTE | 2017-06-19 18:59 | PDOC ---
Exam Note: Greg Note: Please also refer to the separate dictated note~for this date of service dictated separately.~Patient seen individually. Discussed the patient with Nursing staff reviewed the chart.~Reviewed interim history and current functioning. Reviewed vital signs,~Labs/ Radiology~and current medications noted below. Continue current treatment with the changes noted in the dictated addendum note Assessment: Vital Signs: Vital Signs Date Time Temp Pulse Resp B/P (MAP) Pulse Ox O2 Delivery O2 Flow Rate FiO2 06/19/17 15:51 98.7 100 16 136/74 (94) 97 06/15/17 16:30 Room Air I&O Intake and Output 06/19/17 07:00 Intake Total 1280 ml Balance 1280 ml Intake Oral 1280 ml # Voids 1 Labs: Laboratory Tests Test 06/19/17 07:45 White Blood Count 3.7 x10^3/uL (4.0-11.0) L Red Blood Count 4.64 x10^6/uL (3.50-5.40) Hemoglobin 12.6 g/dL (12.0-15.5) Hematocrit 38.2 % (36.0-47.0) Mean Corpuscular Volume 82 fL (79-100) Mean Corpuscular Hemoglobin 27 pg (25-35) Mean Corpuscular Hemoglobin Concent 33 g/dL (31-37) Red Cell Distribution Width 16.2 % (11.5-14.5) H Platelet Count 253 x10^3/uL (140-400) Neutrophils (%) (Auto) 69 % (31-73) Lymphocytes (%) (Auto) 16 % (24-48) L Monocytes (%) (Auto) 12 % (0-9) H Eosinophils (%) (Auto) 2 % (0-3) Basophils (%) (Auto) 1 % (0-3) Neutrophils # (Auto) 2.5 x10^3uL (1.8-7.7) Lymphocytes # (Auto) 0.6 x10^3/uL (1.0-4.8) L Monocytes # (Auto) 0.4 x10^3/uL (0.0-1.1) Eosinophils # (Auto) 0.1 x10^3/uL (0.0-0.7) Basophils # (Auto) 0.0 x10^3/uL (0.0-0.2) Sodium Level 140 mmol/L (136-145) Potassium Level 4.2 mmol/L (3.5-5.1) Chloride Level 103 mmol/L (98-107) Carbon Dioxide Level 27 mmol/L (21-32) Anion Gap 10 (6-14) Blood Urea Nitrogen 13 mg/dL (7-20) Creatinine 1.3 mg/dL (0.6-1.0) H Estimated GFR (Cockcroft-Gault) 40.2 BUN/Creatinine Ratio 10 (6-20) Glucose Level 98 mg/dL (70-99) Calcium Level 9.8 mg/dL (8.5-10.1) Total Bilirubin 0.4 mg/dL (0.2-1.0) Aspartate Amino Transferase (AST) 24 U/L (15-37) Alanine Aminotransferase (ALT) 22 U/L (14-59) Alkaline Phosphatase 110 U/L (46-116) Total Protein 7.4 g/dL (6.4-8.2) Albumin 3.8 g/dL (3.4-5.0) Albumin/Globulin Ratio 1.1 (1.0-1.7) Current Medications: Meds: Current Medications Acetaminophen (Tylenol) 650 mg PRN Q6HRS PRN PO PAIN / TEMP; Start 05/19/17 at 16:15; Stop 05/19/17 at 18:42; Status DC Multi-Ingredient Ointment (Analgesic [place]) 1 missael PRN QID PRN TP MUSCLE PAIN; Start 05/19/17 at 16:15 Al Hydroxide/Mg Hydroxide (Mylanta Plus Xs) 15 ml PRN AFTMEALHC PRN PO DYSPEPSIA Last administered on 05/26/17at 20:02; Start 05/19/17 at 16:15 Magnesium Hydroxide (Milk Of Magnesia) 2,400 mg PRN QHS PRN PO CONSTIPATION; Start 05/19/17 at 16:15 Clonazepam (KlonoPIN) 1 mg BID PO Last administered on 05/29/17at 08:45; Start at 21:00; Stop 05/29/17 at 17:47; Status DC Donepezil HCl (Aricept) 5 mg QHS PO Last administered on 05/30/17at 20:24; Start 05/19/17 at 21:00; Stop 05/31/17 at 18:41; Status DC Lamotrigine (LaMICtal) 150 mg BID PO Last administered on 05/20/17at 20:17; Start 05/19/17 at 21:00; Stop 05/20/17 at 20:37; Status DC Memantine (Namenda) 5 mg DAILY PO Last administered on 06/07/17at 09:02; Start 05/20/17 at 09:00; Stop 06/07/17 at 18:46; Status DC Mirtazapine (Remeron) 15 mg QHS PO Last administered on 06/06/17at 20:36; Start 05/19/17 at 21:00; Stop 06/07/17 at 18:46; Status DC Quetiapine Fumarate (SEROquel) 400 mg QHS PO Last administered on 05/22/17at 19: 57; Start 05/19/17 at 21:00; Stop 05/23/17 at 18:44; Status DC Venlafaxine HCl (Effexor) 50 mg TID PO Last administered on 05/20/17at 14:00; Start 05/19/17 at 21:00; Stop 05/20/17 at 19:25; Status DC Acetaminophen (Tylenol) 650 mg PRN Q4HRS PRN PO PAIN Last administered on at 19:43; Start 05/19/17 at 18:15 Vitamin D (Vitamin D3) 3,000 unit QHS PO Last administered on 06/18/17at 20:03; Start 05/19/17 at 21:00 Fluticasone Propionate (Flonase) 2 spray PRN BID PRN NS ALLERGIES; Start at 18:15 Gabapentin (Neurontin) 100 mg PRN Q6HRS PRN PO ANXIETY; Start 05/19/17 at 18:15 ; Stop 05/20/17 at 19:25; Status DC Guaifenesin (Mucinex Er) 600 mg PRN BID PRN PO coughing; Start 05/19/17 at 18: 15 Ketoconazole (Nizoral 2% Shampoo) 1 missael QMONFR TP Last administered on at 16:21; Start 05/26/17 at 16:00 Lidocaine HCl (Uro-Jet) 5 missael PRN Q4HRS PRN TP PAIN; Start 05/19/17 at 18:15; Stop 05/19/17 at 20:05; Status DC Nystatin (Mycostatin) 1 missael PRN BID PRN TP itching; Start 05/19/17 at 18:15; Stop 06/02/17 at 11:13; Status DC Polyethylene Glycol (miraLAX) 17 gm HS PO Last administered on 06/18/17at 20:04 ; Start 05/19/17 at 21:00 Gabapentin (Neurontin) 600 mg QID PO Last administered on 05/20/17at 17:21; Start 05/19/17 at 21:00; Stop 05/20/17 at 19:25; Status DC Multivitamins/ Calcium (Thera-M Plus) 1 tab DAILY PO Last administered on at 07:59; Start 05/20/17 at 09:00; Stop 05/21/17 at 14:59; Status DC Fish Oil (Fish Oil) 1,000 mg QHS PO Last administered on 06/18/17at 20:03; Start 05/19/17 at 21:00 Ondansetron HCl (Zofran Odt) 4 mg PRN Q6HRS PRN PO NAUSEA; Start 05/19/17 at 19 :00 Non-Formulary Medication 1 drop QID EACHEYE ; Start 05/19/17 at 21:00; Stop at 21:00; Status DC Artificial Tears (Artificial Tears) 1 drop PRN QID PRN OU DRY EYE; Start at 19:00; Stop 05/20/17 at 14:59; Status DC Lidocaine HCl (Xylocaine 2% Topical 5gm Tube) 1 missael PRN Q4HRS PRN TP PAIN; Start 05/19/17 at 20:15; Stop 05/20/17 at 14:59; Status DC Lidocaine HCl (Xylocaine 2% Topical 5gm Tube) 1 missael PRN Q4HRS PRN TP PAIN Last administered on 05/23/17at 05:41; Start 05/20/17 at 14:59 Artificial Tears (Artificial Tears) 1 drop PRN QID PRN OU DRY EYE Last administered on 05/29/17at 08:44; Start 05/20/17 at 14:59 Gabapentin (Neurontin) 600 mg TID PO Last administered on 06/01/17at 19:24; Start 05/20/17 at 21:00; Stop 06/01/17 at 23:00; Status DC Duloxetine HCl (Cymbalta) 30 mg DAILY PO Last administered on 06/03/17at 07:42; Start 05/21/17 at 09:00; Stop 06/03/17 at 18:33; Status DC Lamotrigine (LaMICtal) 150 mg DAILY PO Last administered on 05/29/17at 08:40; Start 05/21/17 at 09:00; Stop 05/29/17 at 17:46; Status DC Lamotrigine (LaMICtal) 200 mg HS PO Last administered on 05/28/17at 19:45; Start 05/20/17 at 21:00; Stop 05/29/17 at 17:46; Status DC Prenat Multivit/ [place]/Iron/Folic Ac (Multivitamin ) 1 tab DAILYBFRSUP PO Last administered on 06/19/17at 16:49; Start 05/21/17 at 17:00 Fosfomycin Tromethamine (Monurol) 3 gm 1X ONCE PO Last administered on at 15:00; Start 05/21/17 at 15:00; Stop 05/21/17 at 15:01; Status DC Quetiapine Fumarate (SEROquel) 300 mg QHS PO Last administered on 05/25/17at 20: 28; Start 05/23/17 at 21:00; Stop 05/26/17 at 17:47; Status DC Nystatin (Nystop) 15 missael STK-MED ONCE TP Last administered on 05/24/17at 17:40; Start 05/24/17 at 17:40; Stop 05/24/17 at 17:41; Status DC Sodium Chloride (Saline Mist Nasal) 1 missael PRN Q1HR PRN NS NASAL CONGESTION Last administered on 05/27/17at 20:38; Start 05/25/17 at 09:15 Quetiapine Fumarate (SEROquel) 200 mg QHS PO Last administered on 06/04/17at 20: 24; Start 05/26/17 at 21:00; Stop 06/05/17 at 17:39; Status DC Ketorolac Tromethamine (Acular) 1 drop Q8HRS OD Last administered on 06/03/17at 06:23; Start 05/29/17 at 14:00; Stop 06/03/17 at 13:59; Status DC Lamotrigine (LaMICtal) 200 mg BID PO Last administered on 06/03/17at 07:42; Start 05/29/17 at 21:00; Stop 06/03/17 at 18:33; Status DC Clonazepam (KlonoPIN) 1 mg DAILY PO Last administered on 06/01/17at 08:07; Start 05/30/17 at 09:00; Stop 06/01/17 at 12:25; Status DC Clonazepam (KlonoPIN) 0.75 mg QHS PO Last administered on 06/07/17at 19:56; Start 05/29/17 at 21:00; Stop 06/08/17 at 21:00; Status DC Donepezil HCl (Aricept) 10 mg QHS PO Last administered on 06/06/17at 20:22; Start 05/31/17 at 21:00; Stop 06/07/17 at 18:46; Status DC Clonazepam (KlonoPIN) 0.75 mg DAILY PO Last administered on 06/04/17at 07:52; Start 06/02/17 at 09:00; Stop 06/04/17 at 09:01; Status DC Clonazepam (KlonoPIN) 0.5 mg DAILY PO Last administered on 06/13/17at 08:01; Start 06/05/17 at 09:00; Stop 06/13/17 at 09:01; Status DC Clonazepam (KlonoPIN) 0.5 mg HS PO Last administered on 06/10/17at 20:35; Start 06/08/17 at 21:00; Stop 06/10/17 at 21:01; Status DC Ciprofloxacin (Cipro) 250 mg BID PO Last administered on 06/06/17at 08:20; Start 06/01/17 at 21:00; Stop 06/06/17 at 20:59; Status DC Gabapentin (Neurontin) 300 mg QID PO Last administered on 06/05/17at 19:42; Start 06/02/17 at 04:00; Stop 06/05/17 at 23:00; Status DC Gabapentin (Neurontin) 300 mg TID PO Last administered on 06/08/17at 20:23; Start 06/06/17 at 04:00; Stop 06/08/17 at 23:00; Status DC Gabapentin (Neurontin) 300 mg BID PO ; Start 06/09/17 at 04:00; Stop 06/09/17 at 04:00; Status DC Lactobacillus Rhamnosus (Culturelle) 1 cap BID PO Last administered on at 08:24; Start 06/02/17 at 21:00 Nystatin (Mycostatin) 1 missael BID TP ; Start 06/02/17 at 21:00; Stop 06/02/17 at 21: 07; Status DC Nystatin (Mycostatin) 1 missael BID TP ; Start 06/02/17 at 21:00; Stop 06/03/17 at 07 :47; Status DC Nystatin (Nystop) 1 missael BID TP Last administered on 06/19/17at 10:47; Start 02/08 at 09:00 Lamotrigine (LaMICtal) 150 mg HS PO Last administered on 06/05/17at 19:40; Start 06/03/17 at 21:00; Stop 06/06/17 at 00:00; Status DC Duloxetine HCl (Cymbalta) 60 mg DAILY PO Last administered on 06/07/17at 09:02; Start 06/04/17 at 09:00; Stop 06/07/17 at 18:46; Status DC Lamotrigine (LaMICtal) 100 mg DAILY PO Last administered on 06/04/17at 07:54; Start 06/04/17 at 09:00; Stop 06/04/17 at 09:50; Status DC Lamotrigine (LaMICtal) 200 mg DAILY PO Last administered on 06/19/17at 08:24; Start 06/05/17 at 09:00 Lamotrigine (LaMICtal) 200 mg HS PO Last administered on 06/18/17at 20:03; Start 06/06/17 at 21:00 Lamotrigine (LaMICtal) 100 mg 1X ONCE PO Last administered on 06/04/17at 10:00 ; Start 06/04/17 at 10:00; Stop 06/04/17 at 10:01; Status DC Quetiapine Fumarate (SEROquel) 250 mg QHS PO Last administered on 06/18/17at 20: 03; Start 06/05/17 at 21:00 Duloxetine HCl (Cymbalta) 30 mg DAILY PO Last administered on 06/10/17at 07:58; Start 06/08/17 at 09:00; Stop 06/11/17 at 08:59; Status DC Gabapentin (Neurontin) 300 mg BID PO Last administered on 06/14/17at 09:08; Start 06/10/17 at 09:00; Stop 06/14/17 at 18:36; Status DC Olanzapine (ZyPREXA ZYDIS) 2.5 mg PRN Q2HR PRN PO PSYCHOSIS; Start 06/09/17 at 18:45 Clonazepam (KlonoPIN) 0.25 mg DAILY PO Last administered on 06/16/17at 08:57; Start 06/14/17 at 09:00; Stop 06/16/17 at 09:00; Status DC Clonazepam (KlonoPIN) 0.5 mg HS PO Last administered on 06/16/17at 19:38; Start 06/13/17 at 21:00; Stop 06/16/17 at 21:00; Status DC Clonazepam (KlonoPIN) 0.25 mg BID PO Last administered on 06/19/17at 08:26; Start 06/17/17 at 09:00; Stop 06/21/17 at 08:59 Gabapentin (Neurontin) 300 mg DAILY PO Last administered on 06/17/17at 08:22; Start 06/15/17 at 09:00; Stop 06/18/17 at 08:59; Status DC Clonazepam (KlonoPIN) 0.25 mg DAILY PO ; Start 06/21/17 at 09:00; Stop 06/24/17 at 08:59 Active Scripts Active Reported Vitamin D3 (Cholecalciferol (Vitamin D3)) 1,000 Unit Tablet 3,000 Unit PO QHS Systane 0.3-0.4% Eye Drops (Propylene Glycol/Peg 400) 15 Ml Drops 1 Drop EACHEYE QID Systane 0.3-0.4% Eye Drops (Propylene Glycol/Peg 400) 15 Ml Drops 1 Drop EACHEYE QIDPRN PRN Pain Reliever Plus Tablet (Aspirin/Acetaminophen/Caffeine) 1 Each Tablet 2 Each PO PRN PRN Ondansetron Hcl 4 Mg Tablet 4 Mg PO PRN Q6HRS PRN Nystatin 100,000 Unit/1 Ml Oral.susp 100,000 Unit PO Nystatin 15 Gm Cream..g. 1 Missael TP PRN BID PRN Miralax (Polyethylene Glycol 3350) 17 Gm Powd.pack 17 Gm PO HS Lidocaine Hcl 5 Ml Jel..ml. 5 Ml TOP PRN Q4HRS Ketoconazole 120 Ml Shampoo 1 Missael TP TWICE WEEKLY Ibuprofen 100 Mg/5 Ml Oral.susp 200 Mg PO PRN TID PRN Hydroxyzine Hcl 25 Mg Tablet 25 Mg PO PRN Q4HRS PRN Hydrocortisone 453.6 Gm Oint...g. 1 Missael TP PRN BID PRN Epa-Dha 720 Softgel ([place]-3/Dha/Epa/Fish Oil) 1 Each Capsule 1 Each PO QHS Donepezil Hcl 5 Mg Tablet 5 Mg PO QHS Saline Nasal [place] (Sodium Chloride) 30 Ml [place] 1 Spr NS PRN PRN Tylenol (Acetaminophen) 325 Mg Tablet 650 Mg PO PRN Q4HRS PRN Seroquel (Quetiapine Fumarate) 400 Mg Tablet 400 Mg PO HS Mirtazapine 15 Mg Tablet 15 Mg PO QHS Lamotrigine 150 Mg Tablet 150 Mg PO BID Fluticasone Propionate Nasal [place] (Fluticasone Propionate) 16 Gm Bush.susp 2 Bush NS PRN BID PRN Effexor Xr (Venlafaxine Hcl) 150 Mg Cap.er.24h 150 Mg PO DAILY Multi Vitamin Daily (Multivitamin) 1 Each Tablet 1 Each PO DAILY Mucinex (Guaifenesin) 600 Mg Tablet.er 600 Mg PO PRN BID PRN Namenda (Memantine Hcl) 10 Mg Tablet 5 Mg PO DAILY Gabapentin 600 Mg Tablet 600 Mg PO QID Gabapentin 100 Mg Capsule 100 Mg PO PRN Q6HRS Clonazepam 1 Mg Tablet 1 Mg PO BID I have reviewed the current psychotropics carefully including drug interactions. Risk benefit ratio favors no change other than as noted in my dictated progress note. Diagnosis: Problems: (1) Major depression (2) Anxiety (3) Bipolar affective disorder, mixed (4) Anxiety disorder (5) Major depressive disorder, recurrent episode (6) Impulse control disorder BRIAN CHAPA MD Jun 19, 2017 18:59
[2017-06-19] MEDS: OMEGA-3 FATTY ACIDS/FISH OIL 1,000 MG CAPSULE. PO SCH (19:25)
[2017-06-19] MEDS: POLYETHYLENE GLYCOL 3350 17 GM PACKET. PO SCH (19:25)
[2017-06-19] MEDS: CHOLECALCIFEROL (VITAMIN D3) 1,000 UNIT TABLET PO SCH (19:26)
[2017-06-19] MEDS: QUEtiapine 100 MG TABLET. PO SCH (19:26)
[2017-06-20 06:39] VITALS: BP 124/81
[2017-06-20] MEDS: clonazePAM 0.5 MG TABLET PO SCH ×2 (09:29→19:26)
[2017-06-20] MEDS: lamoTRIgine 100 MG TABLET. PO SCH ×2 (09:30→19:22)
[2017-06-20] MEDS: LACTOBACILLUS RHAMNOSUS GG 1 CAPSULE. PO SCH ×2 (09:30→19:22)
[2017-06-20] MEDS: NYSTATIN TOPICAL POWDER 15GM BOTTLE. TP SCH (09:30)
--- NOTE | 2017-06-20 11:13 | PN ---
DATE: 06/18/2017 This late entry 06/18/2017 covers elements not covered in my initial note 06/18/2017. Met with the patient evening of 06/18/2017. The patient had a good day. She was tearful one time, talked to her son and then did better, and was ambulating with a walker, all of which is an improvement. No CV, , pulmonary, eye system symptoms on review. MENTAL STATUS EXAM: Reasonably oriented. Speech coherent, abstraction fair, computation somewhat impaired, language function intact. Mood and affect less labile. LABORATORY DATA: Reviewed. IMPRESSION: Bipolar 1 disorder, depressed, in partial remission. Rest diagnoses unchanged. PLAN: Continue current psychotropics. Neurontin has been discontinued. Klonopin has been reduced. Remains on Seroquel, Lamictal along with Zyprexa p.r.n. MAN Vidal CHAPA MD DR: ANTONIO/[email or web address] JOB#: [id number] / [id number]
[2017-06-20 16:38] VITALS: BP 117/76
[2017-06-20] MEDS: PRENATAL MULTIVITAMIN TABLET. PO SCH (16:40)
[2017-06-20] MEDS: CHOLECALCIFEROL (VITAMIN D3) 1,000 UNIT TABLET PO SCH (19:22)
[2017-06-20] MEDS: QUEtiapine 100 MG TABLET. PO SCH (19:22)
[2017-06-20] MEDS: OMEGA-3 FATTY ACIDS/FISH OIL 1,000 MG CAPSULE. PO SCH (19:22)
[2017-06-20] MEDS: POLYETHYLENE GLYCOL 3350 17 GM PACKET. PO SCH (19:22)
--- NOTE | 2017-06-20 19:50 | PDOC ---
Exam Note: Greg Note: Please also refer to the separate dictated note~for this date of service dictated separately.~Patient seen individually. Discussed the patient with Nursing staff reviewed the chart.~Reviewed interim history and current functioning. Reviewed vital signs,~Labs/ Radiology~and current medications noted below. Continue current treatment with the changes noted in the dictated addendum note Assessment: Vital Signs: Vital Signs Date Time Temp Pulse Resp B/P (MAP) Pulse Ox O2 Delivery O2 Flow Rate FiO2 06/20/17 16:38 98.6 108 18 117/76 (90) 94 06/15/17 16:30 Room Air I&O Intake and Output 06/20/17 07:00 Intake Total 800 ml Balance 800 ml Intake Oral 800 ml # Voids 2 # Bowel Movements 1 Current Medications: Meds: Current Medications Acetaminophen (Tylenol) 650 mg PRN Q6HRS PRN PO PAIN / TEMP; Start 05/19/17 at 16:15; Stop 05/19/17 at 18:42; Status DC Multi-Ingredient Ointment (Analgesic [place]) 1 missael PRN QID PRN TP MUSCLE PAIN Last administered on 06/20/17at 09:44; Start 05/19/17 at 16:15 Al Hydroxide/Mg Hydroxide (Mylanta Plus Xs) 15 ml PRN AFTMEALHC PRN PO DYSPEPSIA Last administered on 05/26/17at 20:02; Start 05/19/17 at 16:15 Magnesium Hydroxide (Milk Of Magnesia) 2,400 mg PRN QHS PRN PO CONSTIPATION; Start 05/19/17 at 16:15 Clonazepam (KlonoPIN) 1 mg BID PO Last administered on 05/29/17at 08:45; Start at 21:00; Stop 05/29/17 at 17:47; Status DC Donepezil HCl (Aricept) 5 mg QHS PO Last administered on 05/30/17at 20:24; Start 05/19/17 at 21:00; Stop 05/31/17 at 18:41; Status DC Lamotrigine (LaMICtal) 150 mg BID PO Last administered on 05/20/17at 20:17; Start 05/19/17 at 21:00; Stop 05/20/17 at 20:37; Status DC Memantine (Namenda) 5 mg DAILY PO Last administered on 06/07/17at 09:02; Start 05/20/17 at 09:00; Stop 06/07/17 at 18:46; Status DC Mirtazapine (Remeron) 15 mg QHS PO Last administered on 06/06/17at 20:36; Start 05/19/17 at 21:00; Stop 06/07/17 at 18:46; Status DC Quetiapine Fumarate (SEROquel) 400 mg QHS PO Last administered on 05/22/17at 19: 57; Start 05/19/17 at 21:00; Stop 05/23/17 at 18:44; Status DC Venlafaxine HCl (Effexor) 50 mg TID PO Last administered on 05/20/17at 14:00; Start 05/19/17 at 21:00; Stop 05/20/17 at 19:25; Status DC Acetaminophen (Tylenol) 650 mg PRN Q4HRS PRN PO PAIN Last administered on at 19:43; Start 05/19/17 at 18:15 Vitamin D (Vitamin D3) 3,000 unit QHS PO Last administered on 06/20/17at 19:22; Start 05/19/17 at 21:00 Fluticasone Propionate (Flonase) 2 spray PRN BID PRN NS ALLERGIES; Start at 18:15 Gabapentin (Neurontin) 100 mg PRN Q6HRS PRN PO ANXIETY; Start 05/19/17 at 18:15 ; Stop 05/20/17 at 19:25; Status DC Guaifenesin (Mucinex Er) 600 mg PRN BID PRN PO coughing; Start 05/19/17 at 18: 15 Ketoconazole (Nizoral 2% Shampoo) 1 missael QMONFR TP Last administered on at 16:21; Start 05/26/17 at 16:00 Lidocaine HCl (Uro-Jet) 5 missael PRN Q4HRS PRN TP PAIN; Start 05/19/17 at 18:15; Stop 05/19/17 at 20:05; Status DC Nystatin (Mycostatin) 1 missael PRN BID PRN TP itching; Start 05/19/17 at 18:15; Stop 06/02/17 at 11:13; Status DC Polyethylene Glycol (miraLAX) 17 gm HS PO Last administered on 06/20/17at 19:22 ; Start 05/19/17 at 21:00 Gabapentin (Neurontin) 600 mg QID PO Last administered on 05/20/17at 17:21; Start 05/19/17 at 21:00; Stop 05/20/17 at 19:25; Status DC Multivitamins/ Calcium (Thera-M Plus) 1 tab DAILY PO Last administered on at 07:59; Start 05/20/17 at 09:00; Stop 05/21/17 at 14:59; Status DC Fish Oil (Fish Oil) 1,000 mg QHS PO Last administered on 06/20/17at 19:22; Start 05/19/17 at 21:00 Ondansetron HCl (Zofran Odt) 4 mg PRN Q6HRS PRN PO NAUSEA; Start 05/19/17 at 19 :00 Non-Formulary Medication 1 drop QID EACHEYE ; Start 05/19/17 at 21:00; Stop at 21:00; Status DC Artificial Tears (Artificial Tears) 1 drop PRN QID PRN OU DRY EYE; Start at 19:00; Stop 05/20/17 at 14:59; Status DC Lidocaine HCl (Xylocaine 2% Topical 5gm Tube) 1 missael PRN Q4HRS PRN TP PAIN; Start 05/19/17 at 20:15; Stop 05/20/17 at 14:59; Status DC Lidocaine HCl (Xylocaine 2% Topical 5gm Tube) 1 missael PRN Q4HRS PRN TP PAIN Last administered on 05/23/17at 05:41; Start 05/20/17 at 14:59 Artificial Tears (Artificial Tears) 1 drop PRN QID PRN OU DRY EYE Last administered on 05/29/17at 08:44; Start 05/20/17 at 14:59 Gabapentin (Neurontin) 600 mg TID PO Last administered on 06/01/17at 19:24; Start 05/20/17 at 21:00; Stop 06/01/17 at 23:00; Status DC Duloxetine HCl (Cymbalta) 30 mg DAILY PO Last administered on 06/03/17at 07:42; Start 05/21/17 at 09:00; Stop 06/03/17 at 18:33; Status DC Lamotrigine (LaMICtal) 150 mg DAILY PO Last administered on 05/29/17 08:40; Start 05/21/17 at 09:00; Stop 05/29/17 at 17:46; Status DC Lamotrigine (LaMICtal) 200 mg HS PO Last administered on 05/28/17at 19:45; Start 05/20/17 at 21:00; Stop 05/29/17 at 17:46; Status DC Prenat Multivit/ [place]/Iron/Folic Ac (Multivitamin ) 1 tab DAILYBFRSUP PO Last administered on 06/20/17at 16:40; Start 05/21/17 at 17:00 Fosfomycin Tromethamine (Monurol) 3 gm 1X ONCE PO Last administered on at 15:00; Start 05/21/17 at 15:00; Stop 05/21/17 at 15:01; Status DC Quetiapine Fumarate (SEROquel) 300 mg QHS PO Last administered on 05/25/17at 20: 28; Start 05/23/17 at 21:00; Stop 05/26/17 at 17:47; Status DC Nystatin (Nystop) 15 missael STK-MED ONCE TP Last administered on 05/24/17at 17:40; Start 05/24/17 at 17:40; Stop 05/24/17 at 17:41; Status DC Sodium Chloride (Saline Mist Nasal) 1 missael PRN Q1HR PRN NS NASAL CONGESTION Last administered on 05/27/17 20:38; Start 05/25/17 at 09:15 Quetiapine Fumarate (SEROquel) 200 mg QHS PO Last administered on 06/04/17at 20: 24; Start 05/26/17 at 21:00; Stop 06/05/17 at 17:39; Status DC Ketorolac Tromethamine (Acular) 1 drop Q8HRS OD Last administered on 06/03/17at 06:23; Start 05/29/17 at 14:00; Stop 06/03/17 at 13:59; Status DC Lamotrigine (LaMICtal) 200 mg BID PO Last administered on 06/03/17at 07:42; Start 05/29/17 at 21:00; Stop 06/03/17 at 18:33; Status DC Clonazepam (KlonoPIN) 1 mg DAILY PO Last administered on 06/01/17at 08:07; Start 05/30/17 at 09:00; Stop 06/01/17 at 12:25; Status DC Clonazepam (KlonoPIN) 0.75 mg QHS PO Last administered on 06/07/17at 19:56; Start 05/29/17 at 21:00; Stop 06/08/17 at 21:00; Status DC Donepezil HCl (Aricept) 10 mg QHS PO Last administered on 06/06/17at 20:22; Start 05/31/17 at 21:00; Stop 06/07/17 at 18:46; Status DC Clonazepam (KlonoPIN) 0.75 mg DAILY PO Last administered on 06/04/17at 07:52; Start 06/02/17 at 09:00; Stop 06/04/17 at 09:01; Status DC Clonazepam (KlonoPIN) 0.5 mg DAILY PO Last administered on 06/13/17at 08:01; Start 06/05/17 at 09:00; Stop 06/13/17 at 09:01; Status DC Clonazepam (KlonoPIN) 0.5 mg HS PO Last administered on 06/10/17at 20:35; Start 06/08/17 at 21:00; Stop 06/10/17 at 21:01; Status DC Ciprofloxacin (Cipro) 250 mg BID PO Last administered on 06/06/17at 08:20; Start 06/01/17 at 21:00; Stop 06/06/17 at 20:59; Status DC Gabapentin (Neurontin) 300 mg QID PO Last administered on 06/05/17at 19:42; Start 06/02/17 at 04:00; Stop 06/05/17 at 23:00; Status DC Gabapentin (Neurontin) 300 mg TID PO Last administered on 06/08/17at 20:23; Start 06/06/17 at 04:00; Stop 06/08/17 at 23:00; Status DC Gabapentin (Neurontin) 300 mg BID PO ; Start 06/09/17 at 04:00; Stop 06/09/17 at 04:00; Status DC Lactobacillus Rhamnosus (Culturelle) 1 cap BID PO Last administered on at 19:22; Start 06/02/17 at 21:00 Nystatin (Mycostatin) 1 missael BID TP ; Start 06/02/17 at 21:00; Stop 06/02/17 at 21: 07; Status DC Nystatin (Mycostatin) 1 missael BID TP ; Start 06/02/17 at 21:00; Stop 06/03/17 at 07 :47; Status DC Nystatin (Nystop) 1 missael BID TP Last administered on 06/20/17at 09:30; Start 02/08 at 09:00 Lamotrigine (LaMICtal) 150 mg HS PO Last administered on 06/05/17at 19:40; Start 06/03/17 at 21:00; Stop 06/06/17 at 00:00; Status DC Duloxetine HCl (Cymbalta) 60 mg DAILY PO Last administered on 06/07/17at 09:02; Start 06/04/17 at 09:00; Stop 06/07/17 at 18:46; Status DC Lamotrigine (LaMICtal) 100 mg DAILY PO Last administered on 06/04/17at 07:54; Start 06/04/17 at 09:00; Stop 06/04/17 at 09:50; Status DC Lamotrigine (LaMICtal) 200 mg DAILY PO Last administered on 06/20/17at 09:30; Start 06/05/17 at 09:00 Lamotrigine (LaMICtal) 200 mg HS PO Last administered on 06/20/17at 19:22; Start 06/06/17 at 21:00 Lamotrigine (LaMICtal) 100 mg 1X ONCE PO Last administered on 06/04/17at 10:00 ; Start 06/04/17 at 10:00; Stop 06/04/17 at 10:01; Status DC Quetiapine Fumarate (SEROquel) 250 mg QHS PO Last administered on 06/20/17at 19: 22; Start 06/05/17 at 21:00 Duloxetine HCl (Cymbalta) 30 mg DAILY PO Last administered on 06/10/17at 07:58; Start 06/08/17 at 09:00; Stop 06/11/17 at 08:59; Status DC Gabapentin (Neurontin) 300 mg BID PO Last administered on 06/14/17at 09:08; Start 06/10/17 at 09:00; Stop 06/14/17 at 18:36; Status DC Olanzapine (ZyPREXA ZYDIS) 2.5 mg PRN Q2HR PRN PO PSYCHOSIS; Start 06/09/17 at 18:45 Clonazepam (KlonoPIN) 0.25 mg DAILY PO Last administered on 06/16/17at 08:57; Start 06/14/17 at 09:00; Stop 06/16/17 at 09:00; Status DC Clonazepam (KlonoPIN) 0.5 mg HS PO Last administered on 06/16/17at 19:38; Start 06/13/17 at 21:00; Stop 06/16/17 at 21:00; Status DC Clonazepam (KlonoPIN) 0.25 mg BID PO Last administered on 06/20/17at 19:26; Start 06/17/17 at 09:00; Stop 06/21/17 at 08:59 Gabapentin (Neurontin) 300 mg DAILY PO Last administered on 06/17/17at 08:22; Start 06/15/17 at 09:00; Stop 06/18/17 at 08:59; Status DC Clonazepam (KlonoPIN) 0.25 mg DAILY PO ; Start 06/21/17 at 09:00; Stop 06/24/17 at 08:59 Active Scripts Active Reported Vitamin D3 (Cholecalciferol (Vitamin D3)) 1,000 Unit Tablet 3,000 Unit PO QHS Systane 0.3-0.4% Eye Drops (Propylene Glycol/Peg 400) 15 Ml Drops 1 Drop EACHEYE QID Systane 0.3-0.4% Eye Drops (Propylene Glycol/Peg 400) 15 Ml Drops 1 Drop EACHEYE QIDPRN PRN Pain Reliever Plus Tablet (Aspirin/Acetaminophen/Caffeine) 1 Each Tablet 2 Each PO PRN PRN Ondansetron Hcl 4 Mg Tablet 4 Mg PO PRN Q6HRS PRN Nystatin 100,000 Unit/1 Ml Oral.susp 100,000 Unit PO Nystatin 15 Gm Cream..g. 1 Missael TP PRN BID PRN Miralax (Polyethylene Glycol 3350) 17 Gm Powd.pack 17 Gm PO HS Lidocaine Hcl 5 Ml Jel..ml. 5 Ml TOP PRN Q4HRS Ketoconazole 120 Ml Shampoo 1 Missael TP TWICE WEEKLY Ibuprofen 100 Mg/5 Ml Oral.susp 200 Mg PO PRN TID PRN Hydroxyzine Hcl 25 Mg Tablet 25 Mg PO PRN Q4HRS PRN Hydrocortisone 453.6 Gm Oint...g. 1 Missael TP PRN BID PRN Epa-Dha 720 Softgel ([place]-3/Dha/Epa/Fish Oil) 1 Each Capsule 1 Each PO QHS Donepezil Hcl 5 Mg Tablet 5 Mg PO QHS Saline Nasal [place] (Sodium Chloride) 30 Ml [place] 1 Spr NS PRN PRN Tylenol (Acetaminophen) 325 Mg Tablet 650 Mg PO PRN Q4HRS PRN Seroquel (Quetiapine Fumarate) 400 Mg Tablet 400 Mg PO HS Mirtazapine 15 Mg Tablet 15 Mg PO QHS Lamotrigine 150 Mg Tablet 150 Mg PO BID Fluticasone Propionate Nasal [place] (Fluticasone Propionate) 16 Gm [place].susp 2 [place] NS PRN BID PRN Effexor Xr (Venlafaxine Hcl) 150 Mg Cap.er.24h 150 Mg PO DAILY Multi Vitamin Daily (Multivitamin) 1 Each Tablet 1 Each PO DAILY Mucinex (Guaifenesin) 600 Mg Tablet.er 600 Mg PO PRN BID PRN Namenda (Memantine Hcl) 10 Mg Tablet 5 Mg PO DAILY Gabapentin 600 Mg Tablet 600 Mg PO QID Gabapentin 100 Mg Capsule 100 Mg PO PRN Q6HRS Clonazepam 1 Mg Tablet 1 Mg PO BID I have reviewed the current psychotropics carefully including drug interactions. Risk benefit ratio favors no change other than as noted in my dictated progress note. Diagnosis: Problems: (1) Major depression (2) Anxiety (3) Bipolar affective disorder, mixed (4) Anxiety disorder (5) Major depressive disorder, recurrent episode (6) Impulse control disorder BRIAN CHAPA MD Jun 20, 2017 19:50
[2017-06-21 06:12] VITALS: BP 121/68
[2017-06-21] MEDS: NYSTATIN TOPICAL POWDER 15GM BOTTLE. TP SCH ×3 (06:43→20:34)
[2017-06-21] MEDS: LACTOBACILLUS RHAMNOSUS GG 1 CAPSULE. PO SCH ×2 (09:17→20:34)
[2017-06-21] MEDS: lamoTRIgine 100 MG TABLET. PO SCH ×2 (09:17→20:34)
[2017-06-21] MEDS: clonazePAM 0.5 MG TABLET PO SCH (09:18)
--- NOTE | 2017-06-21 11:12 | PN ---
DATE: 06/19/2017 PSYCHIATRIC PROGRESS NOTE This is a late entry 06/19/2017, covers elements not covered in my initial note 06/19/2017. SUBJECTIVE: I met with the patient the evening of 06/19/2017. Overall, the patient has been ambulating with a walker with slightly steadier gait, still anxious, attention seeking per nursing report, attended groups, was smiling, somewhat paranoid, believes staff does not like her, takes her medications whole. REVIEW OF SYSTEMS: Ambulation impaired with walker. No CV, , pulmonary, eye, ENT system symptoms on review. MENTAL STATUS EXAM: Reasonably oriented. Speech coherent, abstraction fair, computation impaired, language function intact, attention span short. Mood and affect less labile. LABORATORY DATA: Reviewed. IMPRESSION: Bipolar 1 disorder, depressed, in partial remission; anxiety disorder, unspecified. Rest unchanged. PLAN: Taper and stop the Klonopin. Continue Lamictal, Seroquel. Neurontin has been discontinued. Continue Zyprexa p.r.n. BRIAN CHAPA MD DR: ANTONIO/[email or web address] JOB#: [id number] / [id number]
[2017-06-21 15:55] VITALS: BP 167/82
[2017-06-21] MEDS: PRENATAL MULTIVITAMIN TABLET. PO SCH (16:48)
--- NOTE | 2017-06-21 19:58 | PDOC ---
Exam Note: Greg Note: Please also refer to the separate dictated note~for this date of service dictated separately.~Patient seen individually. Discussed the patient with Nursing staff reviewed the chart.~Reviewed interim history and current functioning. Reviewed vital signs,~Labs/ Radiology~and current medications noted below. Continue current treatment with the changes noted in the dictated addendum note Assessment: Vital Signs: Vital Signs Date Time Temp Pulse Resp B/P (MAP) Pulse Ox O2 Delivery O2 Flow Rate FiO2 06/21/17 15:55 98.2 100 16 167/82 (110) 94 06/15/17 16:30 Room Air I&O Intake and Output 06/21/17 07:00 Intake Total 1200 ml Balance 1200 ml Intake Oral 1200 ml # Voids 2 # Bowel Movements 1 Current Medications: Meds: Current Medications Acetaminophen (Tylenol) 650 mg PRN Q6HRS PRN PO PAIN / TEMP; Start 05/19/17 at 16:15; Stop 05/19/17 at 18:42; Status DC Multi-Ingredient Ointment (Analgesic Farina) 1 missael PRN QID PRN TP MUSCLE PAIN Last administered on 06/20/17at 09:44; Start 05/19/17 at 16:15 Al Hydroxide/Mg Hydroxide (Mylanta Plus Xs) 15 ml PRN AFTMEALHC PRN PO DYSPEPSIA Last administered on 05/26/17at 20:02; Start 05/19/17 at 16:15 Magnesium Hydroxide (Milk Of Magnesia) 2,400 mg PRN QHS PRN PO CONSTIPATION; Start 05/19/17 at 16:15 Clonazepam (KlonoPIN) 1 mg BID PO Last administered on 05/29/17at 08:45; Start at 21:00; Stop 05/29/17 at 17:47; Status DC Donepezil HCl (Aricept) 5 mg QHS PO Last administered on 05/30/17at 20:24; Start 05/19/17 at 21:00; Stop 05/31/17 at 18:41; Status DC Lamotrigine (LaMICtal) 150 mg BID PO Last administered on 05/20/17at 20:17; Start 05/19/17 at 21:00; Stop 05/20/17 at 20:37; Status DC Memantine (Namenda) 5 mg DAILY PO Last administered on 06/07/17at 09:02; Start 05/20/17 at 09:00; Stop 06/07/17 at 18:46; Status DC Mirtazapine (Remeron) 15 mg QHS PO Last administered on 06/06/17at 20:36; Start 05/19/17 at 21:00; Stop 06/07/17 at 18:46; Status DC Quetiapine Fumarate (SEROquel) 400 mg QHS PO Last administered on 05/22/17at 19: 57; Start 05/19/17 at 21:00; Stop 05/23/17 at 18:44; Status DC Venlafaxine HCl (Effexor) 50 mg TID PO Last administered on 05/20/17at 14:00; Start 05/19/17 at 21:00; Stop 05/20/17 at 19:25; Status DC Acetaminophen (Tylenol) 650 mg PRN Q4HRS PRN PO PAIN Last administered on at 19:43; Start 05/19/17 at 18:15 Vitamin D (Vitamin D3) 3,000 unit QHS PO Last administered on 06/20/17at 19:22; Start 05/19/17 at 21:00 Fluticasone Propionate (Flonase) 2 spray PRN BID PRN NS ALLERGIES; Start at 18:15 Gabapentin (Neurontin) 100 mg PRN Q6HRS PRN PO ANXIETY; Start 05/19/17 at 18:15 ; Stop 05/20/17 at 19:25; Status DC Guaifenesin (Mucinex Er) 600 mg PRN BID PRN PO coughing; Start 05/19/17 at 18: 15 Ketoconazole (Nizoral 2% Shampoo) 1 missael QMONFR TP Last administered on at 16:21; Start 05/26/17 at 16:00 Lidocaine HCl (Uro-Jet) 5 missael PRN Q4HRS PRN TP PAIN; Start 05/19/17 at 18:15; Stop 05/19/17 at 20:05; Status DC Nystatin (Mycostatin) 1 missael PRN BID PRN TP itching; Start 05/19/17 at 18:15; Stop 06/02/17 at 11:13; Status DC Polyethylene Glycol (miraLAX) 17 gm HS PO Last administered on 06/20/17at 19:22 ; Start 05/19/17 at 21:00 Gabapentin (Neurontin) 600 mg QID PO Last administered on 05/20/17at 17:21; Start 05/19/17 at 21:00; Stop 05/20/17 at 19:25; Status DC Multivitamins/ Calcium (Thera-M Plus) 1 tab DAILY PO Last administered on at 07:59; Start 05/20/17 at 09:00; Stop 05/21/17 at 14:59; Status DC Fish Oil (Fish Oil) 1,000 mg QHS PO Last administered on 06/20/17at 19:22; Start 05/19/17 at 21:00 Ondansetron HCl (Zofran Odt) 4 mg PRN Q6HRS PRN PO NAUSEA; Start 05/19/17 at 19 :00 Non-Formulary Medication 1 drop QID EACHEYE ; Start 05/19/17 at 21:00; Stop at 21:00; Status DC Artificial Tears (Artificial Tears) 1 drop PRN QID PRN OU DRY EYE; Start at 19:00; Stop 05/20/17 at 14:59; Status DC Lidocaine HCl (Xylocaine 2% Topical 5gm Tube) 1 missael PRN Q4HRS PRN TP PAIN; Start 05/19/17 at 20:15; Stop 05/20/17 at 14:59; Status DC Lidocaine HCl (Xylocaine 2% Topical 5gm Tube) 1 missael PRN Q4HRS PRN TP PAIN Last administered on 05/23/17at 05:41; Start 05/20/17 at 14:59 Artificial Tears (Artificial Tears) 1 drop PRN QID PRN OU DRY EYE Last administered on 05/29/17at 08:44; Start 05/20/17 at 14:59 Gabapentin (Neurontin) 600 mg TID PO Last administered on 06/01/17at 19:24; Start 05/20/17 at 21:00; Stop 06/01/17 at 23:00; Status DC Duloxetine HCl (Cymbalta) 30 mg DAILY PO Last administered on 06/03/17at 07:42; Start 05/21/17 at 09:00; Stop 06/03/17 at 18:33; Status DC Lamotrigine (LaMICtal) 150 mg DAILY PO Last administered on 05/29/17 08:40; Start 05/21/17 at 09:00; Stop 05/29/17 at 17:46; Status DC Lamotrigine (LaMICtal) 200 mg HS PO Last administered on 05/28/17at 19:45; Start 05/20/17 at 21:00; Stop 05/29/17 at 17:46; Status DC Prenat Multivit/ Weidman/Iron/Folic Ac (Multivitamin ) 1 tab DAILYBFRSUP PO Last administered on 06/21/17at 16:48; Start 05/21/17 at 17:00 Fosfomycin Tromethamine (Monurol) 3 gm 1X ONCE PO Last administered on at 15:00; Start 05/21/17 at 15:00; Stop 05/21/17 at 15:01; Status DC Quetiapine Fumarate (SEROquel) 300 mg QHS PO Last administered on 05/25/17at 20: 28; Start 05/23/17 at 21:00; Stop 05/26/17 at 17:47; Status DC Nystatin (Nystop) 15 missael STK-MED ONCE TP Last administered on 05/24/17at 17:40; Start 05/24/17 at 17:40; Stop 05/24/17 at 17:41; Status DC Sodium Chloride (Saline Mist Nasal) 1 missael PRN Q1HR PRN NS NASAL CONGESTION Last administered on 05/27/17 20:38; Start 05/25/17 at 09:15 Quetiapine Fumarate (SEROquel) 200 mg QHS PO Last administered on 06/04/17at 20: 24; Start 05/26/17 at 21:00; Stop 06/05/17 at 17:39; Status DC Ketorolac Tromethamine (Acular) 1 drop Q8HRS OD Last administered on 06/03/17 06:23; Start 05/29/17 at 14:00; Stop 06/03/17 at 13:59; Status DC Lamotrigine (LaMICtal) 200 mg BID PO Last administered on 06/03/17at 07:42; Start 05/29/17 at 21:00; Stop 06/03/17 at 18:33; Status DC Clonazepam (KlonoPIN) 1 mg DAILY PO Last administered on 06/01/17at 08:07; Start 05/30/17 at 09:00; Stop 06/01/17 at 12:25; Status DC Clonazepam (KlonoPIN) 0.75 mg QHS PO Last administered on 06/07/17at 19:56; Start 05/29/17 at 21:00; Stop 06/08/17 at 21:00; Status DC Donepezil HCl (Aricept) 10 mg QHS PO Last administered on 06/06/17at 20:22; Start 05/31/17 at 21:00; Stop 06/07/17 at 18:46; Status DC Clonazepam (KlonoPIN) 0.75 mg DAILY PO Last administered on 06/04/17at 07:52; Start 06/02/17 at 09:00; Stop 06/04/17 at 09:01; Status DC Clonazepam (KlonoPIN) 0.5 mg DAILY PO Last administered on 06/13/17at 08:01; Start 06/05/17 at 09:00; Stop 06/13/17 at 09:01; Status DC Clonazepam (KlonoPIN) 0.5 mg HS PO Last administered on 06/10/17at 20:35; Start 06/08/17 at 21:00; Stop 06/10/17 at 21:01; Status DC Ciprofloxacin (Cipro) 250 mg BID PO Last administered on 06/06/17at 08:20; Start 06/01/17 at 21:00; Stop 06/06/17 at 20:59; Status DC Gabapentin (Neurontin) 300 mg QID PO Last administered on 06/05/17at 19:42; Start 06/02/17 at 04:00; Stop 06/05/17 at 23:00; Status DC Gabapentin (Neurontin) 300 mg TID PO Last administered on 06/08/17at 20:23; Start 06/06/17 at 04:00; Stop 06/08/17 at 23:00; Status DC Gabapentin (Neurontin) 300 mg BID PO ; Start 06/09/17 at 04:00; Stop 06/09/17 at 04:00; Status DC Lactobacillus Rhamnosus (Culturelle) 1 cap BID PO Last administered on at 09:17; Start 06/02/17 at 21:00 Nystatin (Mycostatin) 1 missael BID TP ; Start 06/02/17 at 21:00; Stop 06/02/17 at 21: 07; Status DC Nystatin (Mycostatin) 1 missael BID TP ; Start 06/02/17 at 21:00; Stop 06/03/17 at 07 :47; Status DC Nystatin (Nystop) 1 missael BID TP Last administered on 06/21/17at 09:18; Start 02/08 at 09:00 Lamotrigine (LaMICtal) 150 mg HS PO Last administered on 06/05/17at 19:40; Start 06/03/17 at 21:00; Stop 06/06/17 at 00:00; Status DC Duloxetine HCl (Cymbalta) 60 mg DAILY PO Last administered on 06/07/17at 09:02; Start 06/04/17 at 09:00; Stop 06/07/17 at 18:46; Status DC Lamotrigine (LaMICtal) 100 mg DAILY PO Last administered on 06/04/17at 07:54; Start 06/04/17 at 09:00; Stop 06/04/17 at 09:50; Status DC Lamotrigine (LaMICtal) 200 mg DAILY PO Last administered on 06/21/17at 09:17; Start 06/05/17 at 09:00 Lamotrigine (LaMICtal) 200 mg HS PO Last administered on 06/20/17at 19:22; Start 06/06/17 at 21:00 Lamotrigine (LaMICtal) 100 mg 1X ONCE PO Last administered on 06/04/17at 10:00 ; Start 06/04/17 at 10:00; Stop 06/04/17 at 10:01; Status DC Quetiapine Fumarate (SEROquel) 250 mg QHS PO Last administered on 06/20/17at 19: 22; Start 06/05/17 at 21:00 Duloxetine HCl (Cymbalta) 30 mg DAILY PO Last administered on 06/10/17at 07:58; Start 06/08/17 at 09:00; Stop 06/11/17 at 08:59; Status DC Gabapentin (Neurontin) 300 mg BID PO Last administered on 06/14/17at 09:08; Start 06/10/17 at 09:00; Stop 06/14/17 at 18:36; Status DC Olanzapine (ZyPREXA ZYDIS) 2.5 mg PRN Q2HR PRN PO PSYCHOSIS; Start 06/09/17 at 18:45 Clonazepam (KlonoPIN) 0.25 mg DAILY PO Last administered on 06/16/17at 08:57; Start 06/14/17 at 09:00; Stop 06/16/17 at 09:00; Status DC Clonazepam (KlonoPIN) 0.5 mg HS PO Last administered on 06/16/17at 19:38; Start 06/13/17 at 21:00; Stop 06/16/17 at 21:00; Status DC Clonazepam (KlonoPIN) 0.25 mg BID PO Last administered on 06/20/17at 19:26; Start 06/17/17 at 09:00; Stop 06/21/17 at 08:59; Status DC Gabapentin (Neurontin) 300 mg DAILY PO Last administered on 06/17/17at 08:22; Start 06/15/17 at 09:00; Stop 06/18/17 at 08:59; Status DC Clonazepam (KlonoPIN) 0.25 mg DAILY PO Last administered on 06/21/17at 09:18; Start 06/21/17 at 09:00; Stop 06/24/17 at 08:59 Active Scripts Active Reported Vitamin D3 (Cholecalciferol (Vitamin D3)) 1,000 Unit Tablet 3,000 Unit PO QHS Systane 0.3-0.4% Eye Drops (Propylene Glycol/Peg 400) 15 Ml Drops 1 Drop EACHEYE QID Systane 0.3-0.4% Eye Drops (Propylene Glycol/Peg 400) 15 Ml Drops 1 Drop EACHEYE QIDPRN PRN Pain Reliever Plus Tablet (Aspirin/Acetaminophen/Caffeine) 1 Each Tablet 2 Each PO PRN PRN Ondansetron Hcl 4 Mg Tablet 4 Mg PO PRN Q6HRS PRN Nystatin 100,000 Unit/1 Ml Oral.susp 100,000 Unit PO Nystatin 15 Gm Cream..g. 1 Missael TP PRN BID PRN Miralax (Polyethylene Glycol 3350) 17 Gm Powd.pack 17 Gm PO HS Lidocaine Hcl 5 Ml Jel..ml. 5 Ml TOP PRN Q4HRS Ketoconazole 120 Ml Shampoo 1 Missael TP TWICE WEEKLY Ibuprofen 100 Mg/5 Ml Oral.susp 200 Mg PO PRN TID PRN Hydroxyzine Hcl 25 Mg Tablet 25 Mg PO PRN Q4HRS PRN Hydrocortisone 453.6 Gm Oint...g. 1 Missael TP PRN BID PRN Epa-Dha 720 Softgel (Carpenter-3/Dha/Epa/Fish Oil) 1 Each Capsule 1 Each PO QHS Donepezil Hcl 5 Mg Tablet 5 Mg PO QHS Saline Nasal [place] (Sodium Chloride) 30 Ml [place] 1 Spr NS PRN PRN Tylenol (Acetaminophen) 325 Mg Tablet 650 Mg PO PRN Q4HRS PRN Seroquel (Quetiapine Fumarate) 400 Mg Tablet 400 Mg PO HS Mirtazapine 15 Mg Tablet 15 Mg PO QHS Lamotrigine 150 Mg Tablet 150 Mg PO BID Fluticasone Propionate Nasal [place] (Fluticasone Propionate) 16 Gm [place].susp 2 [place] NS PRN BID PRN Effexor Xr (Venlafaxine Hcl) 150 Mg Cap.er.24h 150 Mg PO DAILY Multi Vitamin Daily (Multivitamin) 1 Each Tablet 1 Each PO DAILY Mucinex (Guaifenesin) 600 Mg Tablet.er 600 Mg PO PRN BID PRN Namenda (Memantine Hcl) 10 Mg Tablet 5 Mg PO DAILY Gabapentin 600 Mg Tablet 600 Mg PO QID Gabapentin 100 Mg Capsule 100 Mg PO PRN Q6HRS Clonazepam 1 Mg Tablet 1 Mg PO BID I have reviewed the current psychotropics carefully including drug interactions. Risk benefit ratio favors no change other than as noted in my dictated progress note. Diagnosis: Problems: (1) Major depression (2) Anxiety (3) Bipolar affective disorder, mixed (4) Anxiety disorder (5) Major depressive disorder, recurrent episode (6) Impulse control disorder BRIAN CHAPA MD Jun 21, 2017 19:58
[2017-06-21] MEDS: OMEGA-3 FATTY ACIDS/FISH OIL 1,000 MG CAPSULE. PO SCH (20:33)
[2017-06-21] MEDS: QUEtiapine 100 MG TABLET. PO SCH (20:33)
[2017-06-21] MEDS: POLYETHYLENE GLYCOL 3350 17 GM PACKET. PO SCH (20:33)
[2017-06-21] MEDS: CHOLECALCIFEROL (VITAMIN D3) 1,000 UNIT TABLET PO SCH (20:34)
[2017-06-22 05:41] VITALS: BP 116/48
--- NOTE | 2017-06-22 07:41 | PN ---
DATE: 06/20/2017 This is a late entry for 06/20/2017 and covers elements not covered in my initial note of 06/20/2017. I met with the patient in the evening of 06/20/2017. The patient ambulating better with a walker, becomes paranoid, anxious, state staff is not taking care of her. Processed this with her. REVIEW OF SYSTEMS: Ambulation impaired with walker. No CV, , pulmonary, eye, ENT system symptoms on review. MENTAL STATUS EXAM: Oriented to herself and situation. Speech coherent, abstraction fair, computation impaired, language function intact, attention span short. Mood and affect showing improvement, still slightly labile. LABORATORY DATA: Reviewed. IMPRESSION: Bipolar 1 disorder, depressed, in partial remission. Rest unchanged. PLAN: Taper and stop the Klonopin. Maintain Lamictal, Seroquel at current dosage. MAN Vidal CHAPA MD DR: ANTONIO/[email or web address] JOB#: [id number] / [id number]
[2017-06-22] MEDS: LACTOBACILLUS RHAMNOSUS GG 1 CAPSULE. PO SCH ×2 (09:16→19:50)
[2017-06-22] MEDS: lamoTRIgine 100 MG TABLET. PO SCH ×2 (09:17→19:50)
[2017-06-22] MEDS: clonazePAM 0.5 MG TABLET PO SCH (09:18)
[2017-06-22] MEDS: NYSTATIN TOPICAL POWDER 15GM BOTTLE. TP SCH (09:19)
[2017-06-22 15:45] VITALS: BP 115/62
[2017-06-22] MEDS: PRENATAL MULTIVITAMIN TABLET. PO SCH (16:09)
[2017-06-22] MEDS: POLYETHYLENE GLYCOL 3350 17 GM PACKET. PO SCH (19:49)
[2017-06-22] MEDS: QUEtiapine 100 MG TABLET. PO SCH (19:50)
[2017-06-22] MEDS: CHOLECALCIFEROL (VITAMIN D3) 1,000 UNIT TABLET PO SCH (19:50)
[2017-06-22] MEDS: OMEGA-3 FATTY ACIDS/FISH OIL 1,000 MG CAPSULE. PO SCH (19:50)
--- NOTE | 2017-06-22 20:11 | PDOC ---
Exam Note: Greg Note: Please also refer to the separate dictated note~for this date of service dictated separately.~Patient seen individually. Discussed the patient with Nursing staff reviewed the chart.~Reviewed interim history and current functioning. Reviewed vital signs,~Labs/ Radiology~and current medications noted below. Continue current treatment with the changes noted in the dictated addendum note Assessment: Vital Signs: Vital Signs Date Time Temp Pulse Resp B/P (MAP) Pulse Ox O2 Delivery O2 Flow Rate FiO2 06/22/17 15:45 98.6 108 18 115/62 (79) 96 Room Air I&O Intake and Output 06/22/17 07:00 Intake Total 1080 ml Balance 1080 ml Intake Oral 1080 ml # Bowel Movements 1 Current Medications: Meds: Current Medications Acetaminophen (Tylenol) 650 mg PRN Q6HRS PRN PO PAIN / TEMP; Start 05/19/17 at 16:15; Stop 05/19/17 at 18:42; Status DC Multi-Ingredient Ointment (Analgesic [place]) 1 missael PRN QID PRN TP MUSCLE PAIN Last administered on 06/20/17at 09:44; Start 05/19/17 at 16:15 Al Hydroxide/Mg Hydroxide (Mylanta Plus Xs) 15 ml PRN AFTMEALHC PRN PO DYSPEPSIA Last administered on 05/26/17 20:02; Start 05/19/17 at 16:15 Magnesium Hydroxide (Milk Of Magnesia) 2,400 mg PRN QHS PRN PO CONSTIPATION; Start 05/19/17 at 16:15 Clonazepam (KlonoPIN) 1 mg BID PO Last administered on 05/29/17at 08:45; Start at 21:00; Stop 05/29/17 at 17:47; Status DC Donepezil HCl (Aricept) 5 mg QHS PO Last administered on 05/30/17 20:24; Start 05/19/17 at 21:00; Stop 05/31/17 at 18:41; Status DC Lamotrigine (LaMICtal) 150 mg BID PO Last administered on 05/20/17at 20:17; Start 05/19/17 at 21:00; Stop 05/20/17 at 20:37; Status DC Memantine (Namenda) 5 mg DAILY PO Last administered on 2/14/18at 09:02; Start 05/20/17 at 09:00; Stop 06/07/17 at 18:46; Status DC Mirtazapine (Remeron) 15 mg QHS PO Last administered on 06/06/17at 20:36; Start 05/19/17 at 21:00; Stop 06/07/17 at 18:46; Status DC Quetiapine Fumarate (SEROquel) 400 mg QHS PO Last administered on 05/22/17at 19: 57; Start 05/19/17 at 21:00; Stop 05/23/17 at 18:44; Status DC Venlafaxine HCl (Effexor) 50 mg TID PO Last administered on 05/20/17at 14:00; Start 05/19/17 at 21:00; Stop 05/20/17 at 19:25; Status DC Acetaminophen (Tylenol) 650 mg PRN Q4HRS PRN PO PAIN Last administered on at 19:43; Start 05/19/17 at 18:15 Vitamin D (Vitamin D3) 3,000 unit QHS PO Last administered on 06/22/17at 19:50; Start 05/19/17 at 21:00 Fluticasone Propionate (Flonase) 2 spray PRN BID PRN NS ALLERGIES; Start at 18:15 Gabapentin (Neurontin) 100 mg PRN Q6HRS PRN PO ANXIETY; Start 05/19/17 at 18:15 ; Stop 05/20/17 at 19:25; Status DC Guaifenesin (Mucinex Er) 600 mg PRN BID PRN PO coughing; Start 05/19/17 at 18: 15 Ketoconazole (Nizoral 2% Shampoo) 1 missael QMONFR TP Last administered on at 16:21; Start 05/26/17 at 16:00 Lidocaine HCl (Uro-Jet) 5 missael PRN Q4HRS PRN TP PAIN; Start 05/19/17 at 18:15; Stop 05/19/17 at 20:05; Status DC Nystatin (Mycostatin) 1 missael PRN BID PRN TP itching; Start 05/19/17 at 18:15; Stop 06/02/17 at 11:13; Status DC Polyethylene Glycol (miraLAX) 17 gm HS PO Last administered on 06/22/17at 19:49; Start 05/19/17 at 21:00 Gabapentin (Neurontin) 600 mg QID PO Last administered on 05/20/17at 17:21; Start 05/19/17 at 21:00; Stop 05/20/17 at 19:25; Status DC Multivitamins/ Calcium (Thera-M Plus) 1 tab DAILY PO Last administered on at 07:59; Start 05/20/17 at 09:00; Stop 05/21/17 at 14:59; Status DC Fish Oil (Fish Oil) 1,000 mg QHS PO Last administered on 06/22/17at 19:50; Start 05/19/17 at 21:00 Ondansetron HCl (Zofran Odt) 4 mg PRN Q6HRS PRN PO NAUSEA; Start 05/19/17 at 19 :00 Non-Formulary Medication 1 drop QID EACHEYE ; Start 05/19/17 at 21:00; Stop at 21:00; Status DC Artificial Tears (Artificial Tears) 1 drop PRN QID PRN OU DRY EYE; Start at 19:00; Stop 05/20/17 at 14:59; Status DC Lidocaine HCl (Xylocaine 2% Topical 5gm Tube) 1 missael PRN Q4HRS PRN TP PAIN; Start 05/19/17 at 20:15; Stop 05/20/17 at 14:59; Status DC Lidocaine HCl (Xylocaine 2% Topical 5gm Tube) 1 missael PRN Q4HRS PRN TP PAIN Last administered on 05/23/17at 05:41; Start 05/20/17 at 14:59 Artificial Tears (Artificial Tears) 1 drop PRN QID PRN OU DRY EYE Last administered on 05/29/17at 08:44; Start 05/20/17 at 14:59 Gabapentin (Neurontin) 600 mg TID PO Last administered on 06/01/17at 19:24; Start 05/20/17 at 21:00; Stop 06/01/17 at 23:00; Status DC Duloxetine HCl (Cymbalta) 30 mg DAILY PO Last administered on 06/03/17at 07:42; Start 05/21/17 at 09:00; Stop 06/03/17 at 18:33; Status DC Lamotrigine (LaMICtal) 150 mg DAILY PO Last administered on 05/29/17at 08:40; Start 05/21/17 at 09:00; Stop 05/29/17 at 17:46; Status DC Lamotrigine (LaMICtal) 200 mg HS PO Last administered on 05/28/17at 19:45; Start 05/20/17 at 21:00; Stop 05/29/17 at 17:46; Status DC Prenat Multivit/ Infection Control Coordinator/Iron/Folic Ac (Multivitamin ) 1 tab DAILYBFRSUP PO Last administered on 06/22/17 16:09; Start 05/21/17 at 17:00 Fosfomycin Tromethamine (Monurol) 3 gm 1X ONCE PO Last administered on at 15:00; Start 05/21/17 at 15:00; Stop 05/21/17 at 15:01; Status DC Quetiapine Fumarate (SEROquel) 300 mg QHS PO Last administered on 05/25/17at 20: 28; Start 05/23/17 at 21:00; Stop 05/26/17 at 17:47; Status DC Nystatin (Nystop) 15 missael STK-MED ONCE TP Last administered on 05/24/17at 17:40; Start 05/24/17 at 17:40; Stop 05/24/17 at 17:41; Status DC Sodium Chloride (Saline Mist Nasal) 1 missael PRN Q1HR PRN NS NASAL CONGESTION Last administered on 05/27/17at 20:38; Start 05/25/17 at 09:15 Quetiapine Fumarate (SEROquel) 200 mg QHS PO Last administered on 06/04/17at 20: 24; Start 05/26/17 at 21:00; Stop 06/05/17 at 17:39; Status DC Ketorolac Tromethamine (Acular) 1 drop Q8HRS OD Last administered on 06/03/17at 06:23; Start 05/29/17 at 14:00; Stop 06/03/17 at 13:59; Status DC Lamotrigine (LaMICtal) 200 mg BID PO Last administered on 06/03/17at 07:42; Start 05/29/17 at 21:00; Stop 06/03/17 at 18:33; Status DC Clonazepam (KlonoPIN) 1 mg DAILY PO Last administered on 06/01/17at 08:07; Start 05/30/17 at 09:00; Stop 06/01/17 at 12:25; Status DC Clonazepam (KlonoPIN) 0.75 mg QHS PO Last administered on 06/07/17at 19:56; Start 05/29/17 at 21:00; Stop 06/08/17 at 21:00; Status DC Donepezil HCl (Aricept) 10 mg QHS PO Last administered on 06/06/17at 20:22; Start 05/31/17 at 21:00; Stop 06/07/17 at 18:46; Status DC Clonazepam (KlonoPIN) 0.75 mg DAILY PO Last administered on 06/04/17at 07:52; Start 06/02/17 at 09:00; Stop 06/04/17 at 09:01; Status DC Clonazepam (KlonoPIN) 0.5 mg DAILY PO Last administered on 06/13/17at 08:01; Start 06/05/17 at 09:00; Stop 06/13/17 at 09:01; Status DC Clonazepam (KlonoPIN) 0.5 mg HS PO Last administered on 06/10/17at 20:35; Start 06/08/17 at 21:00; Stop 06/10/17 at 21:01; Status DC Ciprofloxacin (Cipro) 250 mg BID PO Last administered on 06/06/17at 08:20; Start 06/01/17 at 21:00; Stop 06/06/17 at 20:59; Status DC Gabapentin (Neurontin) 300 mg QID PO Last administered on 06/05/17at 19:42; Start 06/02/17 at 04:00; Stop 06/05/17 at 23:00; Status DC Gabapentin (Neurontin) 300 mg TID PO Last administered on 06/08/17at 20:23; Start 06/06/17 at 04:00; Stop 06/08/17 at 23:00; Status DC Gabapentin (Neurontin) 300 mg BID PO ; Start 06/09/17 at 04:00; Stop 06/09/17 at 04:00; Status DC Lactobacillus Rhamnosus (Culturelle) 1 cap BID PO Last administered on at 19:50; Start 06/02/17 at 21:00 Nystatin (Mycostatin) 1 missael BID TP ; Start 06/02/17 at 21:00; Stop 06/02/17 at 21: 07; Status DC Nystatin (Mycostatin) 1 missael BID TP ; Start 06/02/17 at 21:00; Stop 06/03/17 at 07 :47; Status DC Nystatin (Nystop) 1 missael BID TP Last administered on 06/22/17at 09:19; Start 06/03 at 09:00 Lamotrigine (LaMICtal) 150 mg HS PO Last administered on 06/05/17at 19:40; Start 06/03/17 at 21:00; Stop 06/06/17 at 00:00; Status DC Duloxetine HCl (Cymbalta) 60 mg DAILY PO Last administered on 06/07/17at 09:02; Start 06/04/17 at 09:00; Stop 06/07/17 at 18:46; Status DC Lamotrigine (LaMICtal) 100 mg DAILY PO Last administered on 06/04/17at 07:54; Start 06/04/17 at 09:00; Stop 06/04/17 at 09:50; Status DC Lamotrigine (LaMICtal) 200 mg DAILY PO Last administered on 06/22/17at 09:17; Start 06/05/17 at 09:00 Lamotrigine (LaMICtal) 200 mg HS PO Last administered on 06/22/17at 19:50; Start 06/06/17 at 21:00 Lamotrigine (LaMICtal) 100 mg 1X ONCE PO Last administered on 06/04/17at 10:00 ; Start 06/04/17 at 10:00; Stop 06/04/17 at 10:01; Status DC Quetiapine Fumarate (SEROquel) 250 mg QHS PO Last administered on 06/21/17at 20: 33; Start 06/05/17 at 21:00; Stop 06/22/17 at 19:07; Status DC Duloxetine HCl (Cymbalta) 30 mg DAILY PO Last administered on 06/10/17at 07:58; Start 06/08/17 at 09:00; Stop 06/11/17 at 08:59; Status DC Gabapentin (Neurontin) 300 mg BID PO Last administered on 06/14/17at 09:08; Start 06/10/17 at 09:00; Stop 06/14/17 at 18:36; Status DC Olanzapine (ZyPREXA ZYDIS) 2.5 mg PRN Q2HR PRN PO PSYCHOSIS; Start 06/09/17 at 18:45 Clonazepam (KlonoPIN) 0.25 mg DAILY PO Last administered on 06/16/17at 08:57; Start 06/14/17 at 09:00; Stop 06/16/17 at 09:00; Status DC Clonazepam (KlonoPIN) 0.5 mg HS PO Last administered on 06/16/17at 19:38; Start 06/13/17 at 21:00; Stop 06/16/17 at 21:00; Status DC Clonazepam (KlonoPIN) 0.25 mg BID PO Last administered on 06/20/17at 19:26; Start 06/17/17 at 09:00; Stop 06/21/17 at 08:59; Status DC Gabapentin (Neurontin) 300 mg DAILY PO Last administered on 06/17/17at 08:22; Start 06/15/17 at 09:00; Stop 06/18/17 at 08:59; Status DC Clonazepam (KlonoPIN) 0.25 mg DAILY PO Last administered on 06/22/17at 09:18; Start 06/21/17 at 09:00; Stop 06/24/17 at 08:59 Quetiapine Fumarate (SEROquel) 200 mg QHS PO Last administered on 06/22/17at 19: 50; Start 06/22/17 at 21:00 Quetiapine Fumarate (SEROquel) 25 mg 0900,1300 PO ; Start 06/23/17 at 09:00 Active Scripts Active Reported Vitamin D3 (Cholecalciferol (Vitamin D3)) 1,000 Unit Tablet 3,000 Unit PO QHS Systane 0.3-0.4% Eye Drops (Propylene Glycol/Peg 400) 15 Ml Drops 1 Drop EACHEYE QID Systane 0.3-0.4% Eye Drops (Propylene Glycol/Peg 400) 15 Ml Drops 1 Drop EACHEYE QIDPRN PRN Pain Reliever Plus Tablet (Aspirin/Acetaminophen/Caffeine) 1 Each Tablet 2 Each PO PRN PRN Ondansetron Hcl 4 Mg Tablet 4 Mg PO PRN Q6HRS PRN Nystatin 100,000 Unit/1 Ml Oral.susp 100,000 Unit PO Nystatin 15 Gm Cream..g. 1 Missael TP PRN BID PRN Miralax (Polyethylene Glycol 3350) 17 Gm Powd.pack 17 Gm PO HS Lidocaine Hcl 5 Ml Jel..ml. 5 Ml TOP PRN Q4HRS Ketoconazole 120 Ml Shampoo 1 Missael TP TWICE WEEKLY Ibuprofen 100 Mg/5 Ml Oral.susp 200 Mg PO PRN TID PRN Hydroxyzine Hcl 25 Mg Tablet 25 Mg PO PRN Q4HRS PRN Hydrocortisone 453.6 Gm Oint...g. 1 Missael TP PRN BID PRN Epa-Dha 720 Softgel (Pony-3/Dha/Epa/Fish Oil) 1 Each Capsule 1 Each PO QHS Donepezil Hcl 5 Mg Tablet 5 Mg PO QHS Saline Nasal [place] (Sodium Chloride) 30 Ml [place] 1 Spr NS PRN PRN Tylenol (Acetaminophen) 325 Mg Tablet 650 Mg PO PRN Q4HRS PRN Seroquel (Quetiapine Fumarate) 400 Mg Tablet 400 Mg PO HS Mirtazapine 15 Mg Tablet 15 Mg PO QHS Lamotrigine 150 Mg Tablet 150 Mg PO BID Fluticasone Propionate Nasal [place] (Fluticasone Propionate) 16 Gm [place].susp 2 [place] NS PRN BID PRN Effexor Xr (Venlafaxine Hcl) 150 Mg Cap.er.24h 150 Mg PO DAILY Multi Vitamin Daily (Multivitamin) 1 Each Tablet 1 Each PO DAILY Mucinex (Guaifenesin) 600 Mg Tablet.er 600 Mg PO PRN BID PRN Namenda (Memantine Hcl) 10 Mg Tablet 5 Mg PO DAILY Gabapentin 600 Mg Tablet 600 Mg PO QID Gabapentin 100 Mg Capsule 100 Mg PO PRN Q6HRS Clonazepam 1 Mg Tablet 1 Mg PO BID I have reviewed the current psychotropics carefully including drug interactions. Risk benefit ratio favors no change other than as noted in my dictated progress note. Diagnosis: Problems: (1) Major depression (2) Anxiety (3) Bipolar affective disorder, mixed (4) Anxiety disorder (5) Major depressive disorder, recurrent episode (6) Impulse control disorder BIRAN CHAPA MD Jun 22, 2017 20:11
[2017-06-23] MEDS: NYSTATIN TOPICAL POWDER 15GM BOTTLE. TP SCH ×3 (06:11→21:27)
[2017-06-23 06:41] VITALS: BP 111/59
[2017-06-23] MEDS: LACTOBACILLUS RHAMNOSUS GG 1 CAPSULE. PO SCH ×2 (09:33→19:45)
[2017-06-23] MEDS: lamoTRIgine 100 MG TABLET. PO SCH ×2 (09:33→19:46)
[2017-06-23] MEDS: clonazePAM 0.5 MG TABLET PO SCH (09:34)
[2017-06-23] MEDS: QUEtiapine 25 MG TABLET. PO SCH ×2 (09:34→14:04)
[2017-06-23] MEDS: KETOCONAZOLE 2% SHAMPOO 120ML BOTTLE. TP SCH (16:00)
[2017-06-23 16:23] VITALS: BP 146/77
[2017-06-23] MEDS: PRENATAL MULTIVITAMIN TABLET. PO SCH (17:00)
[2017-06-23] MEDS: QUEtiapine 100 MG TABLET. PO SCH (19:45)
[2017-06-23] MEDS: OMEGA-3 FATTY ACIDS/FISH OIL 1,000 MG CAPSULE. PO SCH (19:45)
[2017-06-23] MEDS: POLYETHYLENE GLYCOL 3350 17 GM PACKET. PO SCH (19:46)
[2017-06-23] MEDS: CHOLECALCIFEROL (VITAMIN D3) 1,000 UNIT TABLET PO SCH (19:46)
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
--- NOTE | 2017-06-23 22:26 | PDOC ---
Exam Note: Greg Note: Please also refer to the separate dictated note~for this date of service dictated separately.~Patient seen individually. Discussed the patient with Nursing staff reviewed the chart.~Reviewed interim history and current functioning. Reviewed vital signs,~Labs/ Radiology~and current medications noted below. Continue current treatment with the changes noted in the dictated addendum note Assessment: Vital Signs: Vital Signs Date Time Temp Pulse Resp B/P (MAP) Pulse Ox O2 Delivery O2 Flow Rate FiO2 06/23/17 16:23 98.0 100 20 146/77 (100) 98 Room Air I&O Intake and Output 06/23/17 07:00 Intake Total 720 ml Balance 720 ml Intake Oral 720 ml Current Medications: Meds: Current Medications Acetaminophen (Tylenol) 650 mg PRN Q6HRS PRN PO PAIN / TEMP; Start 05/19/17 at 16:15; Stop 05/19/17 at 18:42; Status DC Multi-Ingredient Ointment (Analgesic [place]) 1 missael PRN QID PRN TP MUSCLE PAIN Last administered on 06/20/17at 09:44; Start 05/19/17 at 16:15 Al Hydroxide/Mg Hydroxide (Mylanta Plus Xs) 15 ml PRN AFTMEALHC PRN PO DYSPEPSIA Last administered on 05/26/17at 20:02; Start 05/19/17 at 16:15 Magnesium Hydroxide (Milk Of Magnesia) 2,400 mg PRN QHS PRN PO CONSTIPATION; Start 05/19/17 at 16:15 Clonazepam (KlonoPIN) 1 mg BID PO Last administered on 05/29/17at 08:45; Start at 21:00; Stop 05/29/17 at 17:47; Status DC Donepezil HCl (Aricept) 5 mg QHS PO Last administered on 05/30/17at 20:24; Start 05/19/17 at 21:00; Stop 05/31/17 at 18:41; Status DC Lamotrigine (LaMICtal) 150 mg BID PO Last administered on 05/20/17at 20:17; Start 05/19/17 at 21:00; Stop 05/20/17 at 20:37; Status DC Memantine (Namenda) 5 mg DAILY PO Last administered on 06/07/17at 09:02; Start 05/20/17 at 09:00; Stop 06/07/17 at 18:46; Status DC Mirtazapine (Remeron) 15 mg QHS PO Last administered on 06/06/17at 20:36; Start 05/19/17 at 21:00; Stop 06/07/17 at 18:46; Status DC Quetiapine Fumarate (SEROquel) 400 mg QHS PO Last administered on 05/22/17at 19: 57; Start 05/19/17 at 21:00; Stop 05/23/17 at 18:44; Status DC Venlafaxine HCl (Effexor) 50 mg TID PO Last administered on 05/20/17at 14:00; Start 05/19/17 at 21:00; Stop 05/20/17 at 19:25; Status DC Acetaminophen (Tylenol) 650 mg PRN Q4HRS PRN PO PAIN Last administered on at 19:43; Start 05/19/17 at 18:15 Vitamin D (Vitamin D3) 3,000 unit QHS PO Last administered on 06/23/17at 19:46; Start 05/19/17 at 21:00 Fluticasone Propionate (Flonase) 2 spray PRN BID PRN NS ALLERGIES; Start at 18:15 Gabapentin (Neurontin) 100 mg PRN Q6HRS PRN PO ANXIETY; Start 05/19/17 at 18:15 ; Stop 05/20/17 at 19:25; Status DC Guaifenesin (Mucinex Er) 600 mg PRN BID PRN PO coughing; Start 05/19/17 at 18: 15 Ketoconazole (Nizoral 2% Shampoo) 1 missael QMONFR TP Last administered on at 16:21; Start 05/26/17 at 16:00 Lidocaine HCl (Uro-Jet) 5 missael PRN Q4HRS PRN TP PAIN; Start 05/19/17 at 18:15; Stop 05/19/17 at 20:05; Status DC Nystatin (Mycostatin) 1 missael PRN BID PRN TP itching; Start 05/19/17 at 18:15; Stop 06/02/17 at 11:13; Status DC Polyethylene Glycol (miraLAX) 17 gm HS PO Last administered on 06/23/17at 19:46; Start 05/19/17 at 21:00 Gabapentin (Neurontin) 600 mg QID PO Last administered on 05/20/17at 17:21; Start 05/19/17 at 21:00; Stop 05/20/17 at 19:25; Status DC Multivitamins/ Calcium (Thera-M Plus) 1 tab DAILY PO Last administered on at 07:59; Start 05/20/17 at 09:00; Stop 05/21/17 at 14:59; Status DC Fish Oil (Fish Oil) 1,000 mg QHS PO Last administered on 06/23/17at 19:45; Start 05/19/17 at 21:00 Ondansetron HCl (Zofran Odt) 4 mg PRN Q6HRS PRN PO NAUSEA; Start 05/19/17 at 19 :00 Non-Formulary Medication 1 drop QID EACHEYE ; Start 05/19/17 at 21:00; Stop at 21:00; Status DC Artificial Tears (Artificial Tears) 1 drop PRN QID PRN OU DRY EYE; Start at 19:00; Stop 05/20/17 at 14:59; Status DC Lidocaine HCl (Xylocaine 2% Topical 5gm Tube) 1 missael PRN Q4HRS PRN TP PAIN; Start 05/19/17 at 20:15; Stop 05/20/17 at 14:59; Status DC Lidocaine HCl (Xylocaine 2% Topical 5gm Tube) 1 missael PRN Q4HRS PRN TP PAIN Last administered on 05/23/17at 05:41; Start 05/20/17 at 14:59 Artificial Tears (Artificial Tears) 1 drop PRN QID PRN OU DRY EYE Last administered on 05/29/17at 08:44; Start 05/20/17 at 14:59 Gabapentin (Neurontin) 600 mg TID PO Last administered on 06/01/17at 19:24; Start 05/20/17 at 21:00; Stop 06/01/17 at 23:00; Status DC Duloxetine HCl (Cymbalta) 30 mg DAILY PO Last administered on 06/03/17at 07:42; Start 05/21/17 at 09:00; Stop 06/03/17 at 18:33; Status DC Lamotrigine (LaMICtal) 150 mg DAILY PO Last administered on 05/29/17 08:40; Start 05/21/17 at 09:00; Stop 05/29/17 at 17:46; Status DC Lamotrigine (LaMICtal) 200 mg HS PO Last administered on 05/28/17at 19:45; Start 05/20/17 at 21:00; Stop 05/29/17 at 17:46; Status DC Prenat Multivit/ Acting Instructor/Iron/Folic Ac (Multivitamin ) 1 tab DAILYBFRSUP PO Last administered on 06/23/17 17:00; Start 05/21/17 at 17:00 Fosfomycin Tromethamine (Monurol) 3 gm 1X ONCE PO Last administered on at 15:00; Start 05/21/17 at 15:00; Stop 05/21/17 at 15:01; Status DC Quetiapine Fumarate (SEROquel) 300 mg QHS PO Last administered on 05/25/17at 20: 28; Start 05/23/17 at 21:00; Stop 05/26/17 at 17:47; Status DC Nystatin (Nystop) 15 missael STK-MED ONCE TP Last administered on 05/24/17at 17:40; Start 05/24/17 at 17:40; Stop 05/24/17 at 17:41; Status DC Sodium Chloride (Saline [place] Nasal) 1 missael PRN Q1HR PRN NS NASAL CONGESTION Last administered on 05/27/17at 20:38; Start 05/25/17 at 09:15 Quetiapine Fumarate (SEROquel) 200 mg QHS PO Last administered on 06/04/17at 20: 24; Start 05/26/17 at 21:00; Stop 06/05/17 at 17:39; Status DC Ketorolac Tromethamine (Acular) 1 drop Q8HRS OD Last administered on 06/03/17at 06:23; Start 05/29/17 at 14:00; Stop 06/03/17 at 13:59; Status DC Lamotrigine (LaMICtal) 200 mg BID PO Last administered on 06/03/17at 07:42; Start 05/29/17 at 21:00; Stop 06/03/17 at 18:33; Status DC Clonazepam (KlonoPIN) 1 mg DAILY PO Last administered on 06/01/17at 08:07; Start 05/30/17 at 09:00; Stop 06/01/17 at 12:25; Status DC Clonazepam (KlonoPIN) 0.75 mg QHS PO Last administered on 06/07/17at 19:56; Start 05/29/17 at 21:00; Stop 06/08/17 at 21:00; Status DC Donepezil HCl (Aricept) 10 mg QHS PO Last administered on 06/06/17at 20:22; Start 05/31/17 at 21:00; Stop 06/07/17 at 18:46; Status DC Clonazepam (KlonoPIN) 0.75 mg DAILY PO Last administered on 06/04/17at 07:52; Start 06/02/17 at 09:00; Stop 06/04/17 at 09:01; Status DC Clonazepam (KlonoPIN) 0.5 mg DAILY PO Last administered on 06/13/17at 08:01; Start 06/05/17 at 09:00; Stop 06/13/17 at 09:01; Status DC Clonazepam (KlonoPIN) 0.5 mg HS PO Last administered on 06/10/17at 20:35; Start 06/08/17 at 21:00; Stop 06/10/17 at 21:01; Status DC Ciprofloxacin (Cipro) 250 mg BID PO Last administered on 06/06/17 08:20; Start 06/01/17 at 21:00; Stop 06/06/17 at 20:59; Status DC Gabapentin (Neurontin) 300 mg QID PO Last administered on 06/05/17at 19:42; Start 06/02/17 at 04:00; Stop 06/05/17 at 23:00; Status DC Gabapentin (Neurontin) 300 mg TID PO Last administered on 06/08/17 20:23; Start 06/06/17 at 04:00; Stop 06/08/17 at 23:00; Status DC Gabapentin (Neurontin) 300 mg BID PO ; Start 06/09/17 at 04:00; Stop 06/09/17 at 04:00; Status DC Lactobacillus Rhamnosus (Culturelle) 1 cap BID PO Last administered on at 19:45; Start 06/02/17 at 21:00 Nystatin (Mycostatin) 1 missael BID TP ; Start 06/02/17 at 21:00; Stop 06/02/17 at 21: 07; Status DC Nystatin (Mycostatin) 1 missael BID TP ; Start 06/02/17 at 21:00; Stop 06/03/17 at 07 :47; Status DC Nystatin (Nystop) 1 missael BID TP Last administered on 06/23/17at 21:27; Start 06/03 at 09:00 Lamotrigine (LaMICtal) 150 mg HS PO Last administered on 06/05/17at 19:40; Start 06/03/17 at 21:00; Stop 06/06/17 at 00:00; Status DC Duloxetine HCl (Cymbalta) 60 mg DAILY PO Last administered on 06/07/17at 09:02; Start 06/04/17 at 09:00; Stop 06/07/17 at 18:46; Status DC Lamotrigine (LaMICtal) 100 mg DAILY PO Last administered on 06/04/17at 07:54; Start 06/04/17 at 09:00; Stop 06/04/17 at 09:50; Status DC Lamotrigine (LaMICtal) 200 mg DAILY PO Last administered on 06/23/17at 09:33; Start 06/05/17 at 09:00 Lamotrigine (LaMICtal) 200 mg HS PO Last administered on 06/23/17at 19:46; Start 06/06/17 at 21:00 Lamotrigine (LaMICtal) 100 mg 1X ONCE PO Last administered on 06/04/17at 10:00 ; Start 06/04/17 at 10:00; Stop 06/04/17 at 10:01; Status DC Quetiapine Fumarate (SEROquel) 250 mg QHS PO Last administered on 06/21/17at 20: 33; Start 06/05/17 at 21:00; Stop 06/22/17 at 19:07; Status DC Duloxetine HCl (Cymbalta) 30 mg DAILY PO Last administered on 06/10/17at 07:58; Start 06/08/17 at 09:00; Stop 06/11/17 at 08:59; Status DC Gabapentin (Neurontin) 300 mg BID PO Last administered on 06/14/17at 09:08; Start 06/10/17 at 09:00; Stop 06/14/17 at 18:36; Status DC Olanzapine (ZyPREXA ZYDIS) 2.5 mg PRN Q2HR PRN PO PSYCHOSIS; Start 06/09/17 at 18:45 Clonazepam (KlonoPIN) 0.25 mg DAILY PO Last administered on 06/16/17at 08:57; Start 06/14/17 at 09:00; Stop 06/16/17 at 09:00; Status DC Clonazepam (KlonoPIN) 0.5 mg HS PO Last administered on 06/16/17at 19:38; Start 06/13/17 at 21:00; Stop 06/16/17 at 21:00; Status DC Clonazepam (KlonoPIN) 0.25 mg BID PO Last administered on 06/20/17at 19:26; Start 06/17/17 at 09:00; Stop 06/21/17 at 08:59; Status DC Gabapentin (Neurontin) 300 mg DAILY PO Last administered on 06/17/17at 08:22; Start 06/15/17 at 09:00; Stop 06/18/17 at 08:59; Status DC Clonazepam (KlonoPIN) 0.25 mg DAILY PO Last administered on 06/23/17 09:34; Start 06/21/17 at 09:00; Stop 06/24/17 at 08:59 Quetiapine Fumarate (SEROquel) 200 mg QHS PO Last administered on 06/23/17 19: 45; Start 06/22/17 at 21:00 Quetiapine Fumarate (SEROquel) 25 mg 0900,1300 PO Last administered on at 14:04; Start 06/23/17 at 09:00 Active Scripts Active Reported Vitamin D3 (Cholecalciferol (Vitamin D3)) 1,000 Unit Tablet 3,000 Unit PO QHS Systane 0.3-0.4% Eye Drops (Propylene Glycol/Peg 400) 15 Ml Drops 1 Drop EACHEYE QID Systane 0.3-0.4% Eye Drops (Propylene Glycol/Peg 400) 15 Ml Drops 1 Drop EACHEYE QIDPRN PRN Pain Reliever Plus Tablet (Aspirin/Acetaminophen/Caffeine) 1 Each Tablet 2 Each PO PRN PRN Ondansetron Hcl 4 Mg Tablet 4 Mg PO PRN Q6HRS PRN Nystatin 100,000 Unit/1 Ml Oral.susp 100,000 Unit PO Nystatin 15 Gm Cream..g. 1 Missael TP PRN BID PRN Miralax (Polyethylene Glycol 3350) 17 Gm Powd.pack 17 Gm PO HS Lidocaine Hcl 5 Ml Jel..ml. 5 Ml TOP PRN Q4HRS Ketoconazole 120 Ml Shampoo 1 Missael TP TWICE WEEKLY Ibuprofen 100 Mg/5 Ml Oral.susp 200 Mg PO PRN TID PRN Hydroxyzine Hcl 25 Mg Tablet 25 Mg PO PRN Q4HRS PRN Hydrocortisone 453.6 Gm Oint...g. 1 Missael TP PRN BID PRN Epa-Dha 720 Softgel ([place]ac[place]-3/Dha/Epa/Fish Oil) 1 Each Capsule 1 Each PO QHS Donepezil Hcl 5 Mg Tablet 5 Mg PO QHS Saline Nasal [place] (Sodium Chloride) 30 Ml [place] 1 Spr NS PRN PRN Tylenol (Acetaminophen) 325 Mg Tablet 650 Mg PO PRN Q4HRS PRN Seroquel (Quetiapine Fumarate) 400 Mg Tablet 400 Mg PO HS Mirtazapine 15 Mg Tablet 15 Mg PO QHS Lamotrigine 150 Mg Tablet 150 Mg PO BID Fluticasone Propionate Nasal [place] (Fluticasone Propionate) 16 Gm [place].susp 2 [place] NS PRN BID PRN Effexor Xr (Venlafaxine Hcl) 150 Mg Cap.er.24h 150 Mg PO DAILY Multi Vitamin Daily (Multivitamin) 1 Each Tablet 1 Each PO DAILY Mucinex (Guaifenesin) 600 Mg Tablet.er 600 Mg PO PRN BID PRN Namenda (Memantine Hcl) 10 Mg Tablet 5 Mg PO DAILY Gabapentin 600 Mg Tablet 600 Mg PO QID Gabapentin 100 Mg Capsule 100 Mg PO PRN Q6HRS Clonazepam 1 Mg Tablet 1 Mg PO BID I have reviewed the current psychotropics carefully including drug interactions. Risk benefit ratio favors no change other than as noted in my dictated progress note. Diagnosis: Problems: (1) Major depression (2) Anxiety (3) Bipolar affective disorder, mixed (4) Anxiety disorder (5) Major depressive disorder, recurrent episode (6) Impulse control disorder BRIAN CHAPA MD Jun 23, 2017 22:26
--- NOTE | 2017-06-24 01:52 | PN ---
DATE: 06/22/2017 This late entry 06/22/2017 covers elements not covered in my initial note 06/22/2017. I met with the patient in the evening of 06/22/2017 and staffed at a treatment team meeting with the entire team morning of 06/22/2017 and the patient's sister, Farida attended. The patient is more cooperative with medications, but anxious, tearful at times, had a possible fall in the morning, unsure. Frequently presents as helpless per nursing report, attention seeking, saying she cannot walk. REVIEW OF SYSTEMS: Ambulation impaired, in wheelchair. No CV, , pulmonary, eye system symptoms on review. MENTAL STATUS EXAM: Oriented to herself and situation. Speech has some latency, coherent. Abstraction fair, computation impaired, language function intact, attention span short. Mood and affect somewhat anxious, labile. LABORATORY DATA: Reviewed. IMPRESSION: Bipolar 1 disorder, depressed, in partial remission. Rest unchanged. PLAN: Change the Seroquel to 50 mg at bedtime to 25 mg 9 a.m., 1:00 p.m. and 200 mg at bedtime, so the total dosage will not change, but will hopefully help the daytime anxiety, mood lability with Seroquel. Continue rest unchanged per initial note. BRIAN CHAPA MD DR: [email or web address]/[email or web address] JOB#: [id number] / [id number]
[2017-06-24 06:39] VITALS: BP 127/61
[2017-06-24] MEDS: lamoTRIgine 100 MG TABLET. PO SCH ×2 (07:51→19:49)
[2017-06-24] MEDS: QUEtiapine 25 MG TABLET. PO SCH ×2 (07:51→13:22)
[2017-06-24] MEDS: PRENATAL MULTIVITAMIN TABLET. PO SCH (07:53)
[2017-06-24] MEDS: NYSTATIN TOPICAL POWDER 15GM BOTTLE. TP SCH ×2 (07:53→19:50)
[2017-06-24 16:45] VITALS: BP 130/83
[2017-06-24] MEDS: CHOLECALCIFEROL (VITAMIN D3) 1,000 UNIT TABLET PO SCH (19:49)
[2017-06-24] MEDS: QUEtiapine 100 MG TABLET. PO SCH (19:49)
[2017-06-24] MEDS: POLYETHYLENE GLYCOL 3350 17 GM PACKET. PO SCH (19:49)
[2017-06-24] MEDS: OMEGA-3 FATTY ACIDS/FISH OIL 1,000 MG CAPSULE. PO SCH (19:49)
--- NOTE | 2017-06-24 21:11 | PDOC ---
Exam Note: Greg Note: Please also refer to the separate dictated note~for this date of service dictated separately.~Patient seen individually. Discussed the patient with Nursing staff reviewed the chart.~Reviewed interim history and current functioning. Reviewed vital signs,~Labs/ Radiology~and current medications noted below. Continue current treatment with the changes noted in the dictated addendum note Assessment: Vital Signs: Vital Signs Date Time Temp Pulse Resp B/P (MAP) Pulse Ox O2 Delivery O2 Flow Rate FiO2 06/24/17 16:45 98.8 104 18 130/83 (99) 94 Room Air I&O Intake and Output 06/24/17 07:00 Intake Total 840 ml Balance 840 ml Intake Oral 840 ml Current Medications: Meds: Current Medications Acetaminophen (Tylenol) 650 mg PRN Q6HRS PRN PO PAIN / TEMP; Start 05/19/17 at 16:15; Stop 05/19/17 at 18:42; Status DC Multi-Ingredient Ointment (Analgesic [place]) 1 missael PRN QID PRN TP MUSCLE PAIN Last administered on 06/20/17at 09:44; Start 05/19/17 at 16:15 Al Hydroxide/Mg Hydroxide (Mylanta Plus Xs) 15 ml PRN AFTMEALHC PRN PO DYSPEPSIA Last administered on 05/26/17 20:02; Start 05/19/17 at 16:15 Magnesium Hydroxide (Milk Of Magnesia) 2,400 mg PRN QHS PRN PO CONSTIPATION; Start 05/19/17 at 16:15 Clonazepam (KlonoPIN) 1 mg BID PO Last administered on 05/29/17at 08:45; Start at 21:00; Stop 05/29/17 at 17:47; Status DC Donepezil HCl (Aricept) 5 mg QHS PO Last administered on 05/30/17at 20:24; Start 05/19/17 at 21:00; Stop 05/31/17 at 18:41; Status DC Lamotrigine (LaMICtal) 150 mg BID PO Last administered on 05/20/17at 20:17; Start 05/19/17 at 21:00; Stop 05/20/17 at 20:37; Status DC Memantine (Namenda) 5 mg DAILY PO Last administered on 06/07/17 09:02; Start 05/20/17 at 09:00; Stop 06/07/17 at 18:46; Status DC Mirtazapine (Remeron) 15 mg QHS PO Last administered on 06/06/17at 20:36; Start 05/19/17 at 21:00; Stop 06/07/17 at 18:46; Status DC Quetiapine Fumarate (SEROquel) 400 mg QHS PO Last administered on 05/22/17at 19: 57; Start 05/19/17 at 21:00; Stop 05/23/17 at 18:44; Status DC Venlafaxine HCl (Effexor) 50 mg TID PO Last administered on 05/20/17at 14:00; Start 05/19/17 at 21:00; Stop 05/20/17 at 19:25; Status DC Acetaminophen (Tylenol) 650 mg PRN Q4HRS PRN PO PAIN Last administered on at 19:43; Start 05/19/17 at 18:15 Vitamin D (Vitamin D3) 3,000 unit QHS PO Last administered on 06/24/17at 19:49; Start 05/19/17 at 21:00 Fluticasone Propionate (Flonase) 2 spray PRN BID PRN NS ALLERGIES; Start at 18:15 Gabapentin (Neurontin) 100 mg PRN Q6HRS PRN PO ANXIETY; Start 05/19/17 at 18:15 ; Stop 05/20/17 at 19:25; Status DC Guaifenesin (Mucinex Er) 600 mg PRN BID PRN PO coughing; Start 05/19/17 at 18: 15 Ketoconazole (Nizoral 2% Shampoo) 1 missael QMONFR TP Last administered on at 16:21; Start 05/26/17 at 16:00 Lidocaine HCl (Uro-Jet) 5 missael PRN Q4HRS PRN TP PAIN; Start 05/19/17 at 18:15; Stop 05/19/17 at 20:05; Status DC Nystatin (Mycostatin) 1 missael PRN BID PRN TP itching; Start 05/19/17 at 18:15; Stop 06/02/17 at 11:13; Status DC Polyethylene Glycol (miraLAX) 17 gm HS PO Last administered on 06/24/17at 19:49; Start 05/19/17 at 21:00 Gabapentin (Neurontin) 600 mg QID PO Last administered on 05/20/17at 17:21; Start 05/19/17 at 21:00; Stop 05/20/17 at 19:25; Status DC Multivitamins/ Calcium (Thera-M Plus) 1 tab DAILY PO Last administered on at 07:59; Start 05/20/17 at 09:00; Stop 05/21/17 at 14:59; Status DC Fish Oil (Fish Oil) 1,000 mg QHS PO Last administered on 06/24/17at 19:49; Start 05/19/17 at 21:00 Ondansetron HCl (Zofran Odt) 4 mg PRN Q6HRS PRN PO NAUSEA; Start 05/19/17 at 19 :00 Non-Formulary Medication 1 drop QID EACHEYE ; Start 05/19/17 at 21:00; Stop at 21:00; Status DC Artificial Tears (Artificial Tears) 1 drop PRN QID PRN OU DRY EYE; Start at 19:00; Stop 05/20/17 at 14:59; Status DC Lidocaine HCl (Xylocaine 2% Topical 5gm Tube) 1 missael PRN Q4HRS PRN TP PAIN; Start 05/19/17 at 20:15; Stop 05/20/17 at 14:59; Status DC Lidocaine HCl (Xylocaine 2% Topical 5gm Tube) 1 missael PRN Q4HRS PRN TP PAIN Last administered on 05/23/17at 05:41; Start 05/20/17 at 14:59 Artificial Tears (Artificial Tears) 1 drop PRN QID PRN OU DRY EYE Last administered on 05/29/17at 08:44; Start 05/20/17 at 14:59 Gabapentin (Neurontin) 600 mg TID PO Last administered on 06/01/17at 19:24; Start 05/20/17 at 21:00; Stop 06/01/17 at 23:00; Status DC Duloxetine HCl (Cymbalta) 30 mg DAILY PO Last administered on 06/03/17at 07:42; Start 05/21/17 at 09:00; Stop 06/03/17 at 18:33; Status DC Lamotrigine (LaMICtal) 150 mg DAILY PO Last administered on 05/29/17at 08:40; Start 05/21/17 at 09:00; Stop 05/29/17 at 17:46; Status DC Lamotrigine (LaMICtal) 200 mg HS PO Last administered on 05/28/17at 19:45; Start 05/20/17 at 21:00; Stop 05/29/17 at 17:46; Status DC Prenat Multivit/ [place]/Iron/Folic Ac (Multivitamin ) 1 tab DAILYBFRSUP PO Last administered on 06/24/17 07:53; Start 05/21/17 at 17:00 Fosfomycin Tromethamine (Monurol) 3 gm 1X ONCE PO Last administered on at 15:00; Start 05/21/17 at 15:00; Stop 05/21/17 at 15:01; Status DC Quetiapine Fumarate (SEROquel) 300 mg QHS PO Last administered on 05/25/17at 20: 28; Start 05/23/17 at 21:00; Stop 05/26/17 at 17:47; Status DC Nystatin (Nystop) 15 missael STK-MED ONCE TP Last administered on 05/24/17at 17:40; Start 05/24/17 at 17:40; Stop 05/24/17 at 17:41; Status DC Sodium Chloride (Saline Mist Nasal) 1 missael PRN Q1HR PRN NS NASAL CONGESTION Last administered on 05/27/17at 20:38; Start 05/25/17 at 09:15 Quetiapine Fumarate (SEROquel) 200 mg QHS PO Last administered on 06/04/17at 20: 24; Start 05/26/17 at 21:00; Stop 06/05/17 at 17:39; Status DC Ketorolac Tromethamine (Acular) 1 drop Q8HRS OD Last administered on 06/03/17at 06:23; Start 05/29/17 at 14:00; Stop 06/03/17 at 13:59; Status DC Lamotrigine (LaMICtal) 200 mg BID PO Last administered on 06/03/17at 07:42; Start 05/29/17 at 21:00; Stop 06/03/17 at 18:33; Status DC Clonazepam (KlonoPIN) 1 mg DAILY PO Last administered on 06/01/17at 08:07; Start 05/30/17 at 09:00; Stop 06/01/17 at 12:25; Status DC Clonazepam (KlonoPIN) 0.75 mg QHS PO Last administered on 06/07/17at 19:56; Start 05/29/17 at 21:00; Stop 06/08/17 at 21:00; Status DC Donepezil HCl (Aricept) 10 mg QHS PO Last administered on 06/06/17at 20:22; Start 05/31/17 at 21:00; Stop 06/07/17 at 18:46; Status DC Clonazepam (KlonoPIN) 0.75 mg DAILY PO Last administered on 06/04/17at 07:52; Start 06/02/17 at 09:00; Stop 06/04/17 at 09:01; Status DC Clonazepam (KlonoPIN) 0.5 mg DAILY PO Last administered on 06/13/17at 08:01; Start 06/05/17 at 09:00; Stop 06/13/17 at 09:01; Status DC Clonazepam (KlonoPIN) 0.5 mg HS PO Last administered on 06/10/17at 20:35; Start 06/08/17 at 21:00; Stop 06/10/17 at 21:01; Status DC Ciprofloxacin (Cipro) 250 mg BID PO Last administered on 06/06/17at 08:20; Start 06/01/17 at 21:00; Stop 06/06/17 at 20:59; Status DC Gabapentin (Neurontin) 300 mg QID PO Last administered on 06/05/17at 19:42; Start 06/02/17 at 04:00; Stop 06/05/17 at 23:00; Status DC Gabapentin (Neurontin) 300 mg TID PO Last administered on 06/08/17at 20:23; Start 06/06/17 at 04:00; Stop 06/08/17 at 23:00; Status DC Gabapentin (Neurontin) 300 mg BID PO ; Start 06/09/17 at 04:00; Stop 06/09/17 at 04:00; Status DC Lactobacillus Rhamnosus (Culturelle) 1 cap BID PO Last administered on at 19:45; Start 06/02/17 at 21:00; Stop 06/24/17 at 07:51; Status DC Nystatin (Mycostatin) 1 missael BID TP ; Start 06/02/17 at 21:00; Stop 06/02/17 at 21: 07; Status DC Nystatin (Mycostatin) 1 missael BID TP ; Start 06/02/17 at 21:00; Stop 06/03/17 at 07 :47; Status DC Nystatin (Nystop) 1 missael BID TP Last administered on 06/24/17at 19:50; Start 06/03 at 09:00 Lamotrigine (LaMICtal) 150 mg HS PO Last administered on 06/05/17at 19:40; Start 06/03/17 at 21:00; Stop 06/06/17 at 00:00; Status DC Duloxetine HCl (Cymbalta) 60 mg DAILY PO Last administered on 06/07/17at 09:02; Start 06/04/17 at 09:00; Stop 06/07/17 at 18:46; Status DC Lamotrigine (LaMICtal) 100 mg DAILY PO Last administered on 06/04/17at 07:54; Start 06/04/17 at 09:00; Stop 06/04/17 at 09:50; Status DC Lamotrigine (LaMICtal) 200 mg DAILY PO Last administered on 06/24/17at 07:51; Start 06/05/17 at 09:00 Lamotrigine (LaMICtal) 200 mg HS PO Last administered on 06/24/17at 19:49; Start 06/06/17 at 21:00 Lamotrigine (LaMICtal) 100 mg 1X ONCE PO Last administered on 06/04/17at 10:00 ; Start 06/04/17 at 10:00; Stop 06/04/17 at 10:01; Status DC Quetiapine Fumarate (SEROquel) 250 mg QHS PO Last administered on 06/21/17at 20: 33; Start 06/05/17 at 21:00; Stop 06/22/17 at 19:07; Status DC Duloxetine HCl (Cymbalta) 30 mg DAILY PO Last administered on 06/10/17at 07:58; Start 06/08/17 at 09:00; Stop 06/11/17 at 08:59; Status DC Gabapentin (Neurontin) 300 mg BID PO Last administered on 06/14/17at 09:08; Start 06/10/17 at 09:00; Stop 06/14/17 at 18:36; Status DC Olanzapine (ZyPREXA ZYDIS) 2.5 mg PRN Q2HR PRN PO PSYCHOSIS; Start 06/09/17 at 18:45 Clonazepam (KlonoPIN) 0.25 mg DAILY PO Last administered on 06/16/17at 08:57; Start 06/14/17 at 09:00; Stop 06/16/17 at 09:00; Status DC Clonazepam (KlonoPIN) 0.5 mg HS PO Last administered on 06/16/17at 19:38; Start 06/13/17 at 21:00; Stop 06/16/17 at 21:00; Status DC Clonazepam (KlonoPIN) 0.25 mg BID PO Last administered on 06/20/17at 19:26; Start 06/17/17 at 09:00; Stop 06/21/17 at 08:59; Status DC Gabapentin (Neurontin) 300 mg DAILY PO Last administered on 06/17/17at 08:22; Start 06/15/17 at 09:00; Stop 06/18/17 at 08:59; Status DC Clonazepam (KlonoPIN) 0.25 mg DAILY PO Last administered on 06/23/17at 09:34; Start 06/21/17 at 09:00; Stop 06/24/17 at 08:59; Status DC Quetiapine Fumarate (SEROquel) 200 mg QHS PO Last administered on 06/24/17at 19: 49; Start 06/22/17 at 21:00 Quetiapine Fumarate (SEROquel) 25 mg 0900,1300 PO Last administered on at 13:22; Start 06/23/17 at 09:00 Active Scripts Active Reported Vitamin D3 (Cholecalciferol (Vitamin D3)) 1,000 Unit Tablet 3,000 Unit PO QHS Systane 0.3-0.4% Eye Drops (Propylene Glycol/Peg 400) 15 Ml Drops 1 Drop EACHEYE QID Systane 0.3-0.4% Eye Drops (Propylene Glycol/Peg 400) 15 Ml Drops 1 Drop EACHEYE QIDPRN PRN Pain Reliever Plus Tablet (Aspirin/Acetaminophen/Caffeine) 1 Each Tablet 2 Each PO PRN PRN Ondansetron Hcl 4 Mg Tablet 4 Mg PO PRN Q6HRS PRN Nystatin 100,000 Unit/1 Ml Oral.susp 100,000 Unit PO Nystatin 15 Gm Cream..g. 1 Missael TP PRN BID PRN Miralax (Polyethylene Glycol 3350) 17 Gm Powd.pack 17 Gm PO HS Lidocaine Hcl 5 Ml Jel..ml. 5 Ml TOP PRN Q4HRS Ketoconazole 120 Ml Shampoo 1 Missael TP TWICE WEEKLY Ibuprofen 100 Mg/5 Ml Oral.susp 200 Mg PO PRN TID PRN Hydroxyzine Hcl 25 Mg Tablet 25 Mg PO PRN Q4HRS PRN Hydrocortisone 453.6 Gm Oint...g. 1 Missael TP PRN BID PRN Epa-Dha 720 Softgel (Mitchell-3/Dha/Epa/Fish Oil) 1 Each Capsule 1 Each PO QHS Donepezil Hcl 5 Mg Tablet 5 Mg PO QHS Saline Nasal [place] (Sodium Chloride) 30 Ml [place] 1 Spr NS PRN PRN Tylenol (Acetaminophen) 325 Mg Tablet 650 Mg PO PRN Q4HRS PRN Seroquel (Quetiapine Fumarate) 400 Mg Tablet 400 Mg PO HS Mirtazapine 15 Mg Tablet 15 Mg PO QHS Lamotrigine 150 Mg Tablet 150 Mg PO BID Fluticasone Propionate Nasal [place] (Fluticasone Propionate) 16 Gm [place].susp 2 [place] NS PRN BID PRN Effexor Xr (Venlafaxine Hcl) 150 Mg Cap.er.24h 150 Mg PO DAILY Multi Vitamin Daily (Multivitamin) 1 Each Tablet 1 Each PO DAILY Mucinex (Guaifenesin) 600 Mg Tablet.er 600 Mg PO PRN BID PRN Namenda (Memantine Hcl) 10 Mg Tablet 5 Mg PO DAILY Gabapentin 600 Mg Tablet 600 Mg PO QID Gabapentin 100 Mg Capsule 100 Mg PO PRN Q6HRS Clonazepam 1 Mg Tablet 1 Mg PO BID I have reviewed the current psychotropics carefully including drug interactions. Risk benefit ratio favors no change other than as noted in my dictated progress note. Diagnosis: Problems: (1) Major depression (2) Anxiety (3) Bipolar affective disorder, mixed (4) Anxiety disorder (5) Major depressive disorder, recurrent episode (6) Impulse control disorder BRIAN CHAPA MD Jun 24, 2017 21:11
[2017-06-25 06:30] VITALS: BP 142/75
[2017-06-25] MEDS: QUEtiapine 25 MG TABLET. PO SCH ×2 (07:27→11:44)
[2017-06-25] MEDS: PRENATAL MULTIVITAMIN TABLET. PO SCH (07:27)
[2017-06-25] MEDS: NYSTATIN TOPICAL POWDER 15GM BOTTLE. TP SCH ×2 (07:27→20:11)
[2017-06-25] MEDS: lamoTRIgine 100 MG TABLET. PO SCH ×2 (07:27→20:09)
[2017-06-25 10:15] LABS: BASO % 1 % (0-3); EOS # 0.1 x10^3/uL (0.0-0.7); EOS % 2 % (0-3); HEMATOCRIT 36.8 % (36.0-47.0); HEMOGLOBIN 12.5 g/dL (12.0-15.5); LYMPH # 0.9 x10^3/uL (1.0-4.8); LYMPH % 22 % (24-48); MEAN CORPUSCULAR HEMOGLOBIN 28 pg (25-35); MEAN CORPUSCULAR HGB CONC 34 g/dL (31-37); MEAN CORPUSCULAR VOLUME 82 fL (79-100); MONO # 0.3 x10^3/uL (0.0-1.1); MONO % 6 % (0-9); NEUT # 2.9 x10^3uL (1.8-7.7); NEUT % 69 % (31-73); PLATELET COUNT 265 x10^3/uL (140-400); RED BLOOD COUNT 4.51 x10^6/uL (3.50-5.40); RED CELL DISTRIBUTION WIDTH 16.4 % (11.5-14.5); WHITE BLOOD COUNT 4.3 x10^3/uL (4.0-11.0)
[2017-06-25 10:37] LABS: ALBUMIN 3.8 g/dL (3.4-5.0); ALBUMIN/GLOBULIN RATIO 1.1 (1.0-1.7); CALCIUM 9.6 mg/dL (8.5-10.1); CREATININE 1.3 mg/dL (0.6-1.0); GFR 40.2; POTASSIUM 4.3 mmol/L (3.5-5.1); TOTAL BILIRUBIN 0.3 mg/dL (0.2-1.0); TOTAL PROTEIN 7.3 g/dL (6.4-8.2)
[2017-06-25 16:17] VITALS: BP 138/85
--- NOTE | 2017-06-25 18:59 | PN ---
DATE: 06/23/2017 PSYCHIATRIC PROGRESS NOTE This is a late entry for 06/23/2017, covers elements not covered in my initial note of 06/23/2017. SUBJECTIVE: I met with the patient the evening of 06/23/2017. She is somewhat anxious, helpless, compliant with medications. REVIEW OF SYSTEMS: Ambulation impaired with walker. No CV, , pulmonary, eye system symptoms on review. MENTAL STATUS EXAM: Reasonably oriented to herself and situation. Speech, often responses monosyllabic. Abstraction fair, computation impaired, language function intact, attention span short. Mood and affect showing improvement. LABORATORY DATA: Reviewed. IMPRESSION: Bipolar 1 disorder, depressed, in partial remission. Rest unchanged. PLAN: Continue psychotropics mentioned in my initial note. MAN Vidal CHAPA MD DR: ANTONIO/gianfranco JOB#: [id number] / [id number]
--- NOTE | 2017-06-25 19:02 | PN ---
DATE: 06/24/2017 This is a late entry, 06/24/2017, covers the elements not covered in my initial note, 06/24/2017. SUBJECTIVE: I met with the patient in the evening of 06/24/2017. The patient has been quite anxious. Per nursing report, has a "negative attitude, very attention seeking manipulative." REVIEW OF SYSTEMS: Ambulation impaired with walker. No CV, , pulmonary, eye system symptoms on review, vague somatic symptoms evident. MENTAL STATUS EXAM: Reasonably oriented. Speech coherent, abstraction fair, computation impaired, language function intact, attention span short. Mood and affect still anxious, otherwise showing improvement. LABORATORY DATA: Reviewed. IMPRESSION: Unchanged from initial note. PLAN: Continue psychotropics as mentioned in my initial note. MAN Vidal CHAPA MD DR: ANTONIO/gianfranco JOB#: [id number] / [id number]
[2017-06-25] MEDS: QUEtiapine 100 MG TABLET. PO SCH (20:09)
[2017-06-25] MEDS: CHOLECALCIFEROL (VITAMIN D3) 1,000 UNIT TABLET PO SCH (20:09)
[2017-06-25] MEDS: OMEGA-3 FATTY ACIDS/FISH OIL 1,000 MG CAPSULE. PO SCH (20:09)
[2017-06-25] MEDS: POLYETHYLENE GLYCOL 3350 17 GM PACKET. PO SCH (20:10)
--- NOTE | 2017-06-25 20:16 | PDOC ---
Exam Note: Greg Note: Please also refer to the separate dictated note~for this date of service dictated separately.~Patient seen individually. Discussed the patient with Nursing staff reviewed the chart.~Reviewed interim history and current functioning. Reviewed vital signs,~Labs/ Radiology~and current medications noted below. Continue current treatment with the changes noted in the dictated addendum note Assessment: Vital Signs: Vital Signs Date Time Temp Pulse Resp B/P (MAP) Pulse Ox O2 Delivery O2 Flow Rate FiO2 06/25/17 16:17 97.6 107 16 138/85 (102) 97 06/24/17 16:45 Room Air I&O Intake and Output 06/25/17 07:00 Intake Total 1080 ml Balance 1080 ml Intake Oral 1080 ml # Bowel Movements 1 Labs: Laboratory Tests Test 06/25/17 10:00 White Blood Count 4.3 x10^3/uL (4.0-11.0) Red Blood Count 4.51 x10^6/uL (3.50-5.40) Hemoglobin 12.5 g/dL (12.0-15.5) Hematocrit 36.8 % (36.0-47.0) Mean Corpuscular Volume 82 fL (79-100) Mean Corpuscular Hemoglobin 28 pg (25-35) Mean Corpuscular Hemoglobin Concent 34 g/dL (31-37) Red Cell Distribution Width 16.4 % (11.5-14.5) H Platelet Count 265 x10^3/uL (140-400) Neutrophils (%) (Auto) 69 % (31-73) Lymphocytes (%) (Auto) 22 % (24-48) L Monocytes (%) (Auto) 6 % (0-9) Eosinophils (%) (Auto) 2 % (0-3) Basophils (%) (Auto) 1 % (0-3) Neutrophils # (Auto) 2.9 x10^3uL (1.8-7.7) Lymphocytes # (Auto) 0.9 x10^3/uL (1.0-4.8) L Monocytes # (Auto) 0.3 x10^3/uL (0.0-1.1) Eosinophils # (Auto) 0.1 x10^3/uL (0.0-0.7) Basophils # (Auto) 0.0 x10^3/uL (0.0-0.2) Sodium Level 139 mmol/L (136-145) Potassium Level 4.3 mmol/L (3.5-5.1) Chloride Level 103 mmol/L (98-107) Carbon Dioxide Level 25 mmol/L (21-32) Anion Gap 11 (6-14) Blood Urea Nitrogen 12 mg/dL (7-20) Creatinine 1.3 mg/dL (0.6-1.0) H Estimated GFR (Cockcroft-Gault) 40.2 BUN/Creatinine Ratio 9 (6-20) Glucose Level 132 mg/dL (70-99) H Calcium Level 9.6 mg/dL (8.5-10.1) Total Bilirubin 0.3 mg/dL (0.2-1.0) Aspartate Amino Transferase (AST) 19 U/L (15-37) Alanine Aminotransferase (ALT) 20 U/L (14-59) Alkaline Phosphatase 102 U/L (46-116) Total Protein 7.3 g/dL (6.4-8.2) Albumin 3.8 g/dL (3.4-5.0) Albumin/Globulin Ratio 1.1 (1.0-1.7) Current Medications: Meds: Current Medications Acetaminophen (Tylenol) 650 mg PRN Q6HRS PRN PO PAIN / TEMP; Start 05/19/17 at 16:15; Stop 05/19/17 at 18:42; Status DC Multi-Ingredient Ointment (Analgesic [place]) 1 missael PRN QID PRN TP MUSCLE PAIN Last administered on 06/20/17at 09:44; Start 05/19/17 at 16:15 Al Hydroxide/Mg Hydroxide (Mylanta Plus Xs) 15 ml PRN AFTMEALHC PRN PO DYSPEPSIA Last administered on 05/26/17at 20:02; Start 05/19/17 at 16:15 Magnesium Hydroxide (Milk Of Magnesia) 2,400 mg PRN QHS PRN PO CONSTIPATION Last administered on 06/25/17at 05:58; Start 05/19/17 at 16:15 Clonazepam (KlonoPIN) 1 mg BID PO Last administered on 05/29/17at 08:45; Start at 21:00; Stop 05/29/17 at 17:47; Status DC Donepezil HCl (Aricept) 5 mg QHS PO Last administered on 05/30/17 20:24; Start 05/19/17 at 21:00; Stop 05/31/17 at 18:41; Status DC Lamotrigine (LaMICtal) 150 mg BID PO Last administered on 05/20/17at 20:17; Start 05/19/17 at 21:00; Stop 05/20/17 at 20:37; Status DC Memantine (Namenda) 5 mg DAILY PO Last administered on 06/07/17at 09:02; Start 05/20/17 at 09:00; Stop 06/07/17 at 18:46; Status DC Mirtazapine (Remeron) 15 mg QHS PO Last administered on 06/06/17at 20:36; Start 05/19/17 at 21:00; Stop 06/07/17 at 18:46; Status DC Quetiapine Fumarate (SEROquel) 400 mg QHS PO Last administered on 05/22/17at 19: 57; Start 05/19/17 at 21:00; Stop 05/23/17 at 18:44; Status DC Venlafaxine HCl (Effexor) 50 mg TID PO Last administered on 05/20/17at 14:00; Start 05/19/17 at 21:00; Stop 05/20/17 at 19:25; Status DC Acetaminophen (Tylenol) 650 mg PRN Q4HRS PRN PO PAIN Last administered on at 19:43; Start 05/19/17 at 18:15 Vitamin D (Vitamin D3) 3,000 unit QHS PO Last administered on 06/25/17at 20:09; Start 05/19/17 at 21:00 Fluticasone Propionate (Flonase) 2 spray PRN BID PRN NS ALLERGIES; Start at 18:15 Gabapentin (Neurontin) 100 mg PRN Q6HRS PRN PO ANXIETY; Start 05/19/17 at 18:15 ; Stop 05/20/17 at 19:25; Status DC Guaifenesin (Mucinex Er) 600 mg PRN BID PRN PO coughing; Start 05/19/17 at 18: 15 Ketoconazole (Nizoral 2% Shampoo) 1 missael QMONFR TP Last administered on at 16:21; Start 05/26/17 at 16:00 Lidocaine HCl (Uro-Jet) 5 missael PRN Q4HRS PRN TP PAIN; Start 05/19/17 at 18:15; Stop 05/19/17 at 20:05; Status DC Nystatin (Mycostatin) 1 missael PRN BID PRN TP itching; Start 05/19/17 at 18:15; Stop 06/02/17 at 11:13; Status DC Polyethylene Glycol (miraLAX) 17 gm HS PO Last administered on 06/25/17at 20:10; Start 05/19/17 at 21:00 Gabapentin (Neurontin) 600 mg QID PO Last administered on 05/20/17at 17:21; Start 05/19/17 at 21:00; Stop 05/20/17 at 19:25; Status DC Multivitamins/ Calcium (Thera-M Plus) 1 tab DAILY PO Last administered on at 07:59; Start 05/20/17 at 09:00; Stop 05/21/17 at 14:59; Status DC Fish Oil (Fish Oil) 1,000 mg QHS PO Last administered on 06/25/17at 20:09; Start 05/19/17 at 21:00 Ondansetron HCl (Zofran Odt) 4 mg PRN Q6HRS PRN PO NAUSEA; Start 05/19/17 at 19 :00 Non-Formulary Medication 1 drop QID EACHEYE ; Start 05/19/17 at 21:00; Stop at 21:00; Status DC Artificial Tears (Artificial Tears) 1 drop PRN QID PRN OU DRY EYE; Start at 19:00; Stop 05/20/17 at 14:59; Status DC Lidocaine HCl (Xylocaine 2% Topical 5gm Tube) 1 missael PRN Q4HRS PRN TP PAIN; Start 05/19/17 at 20:15; Stop 05/20/17 at 14:59; Status DC Lidocaine HCl (Xylocaine 2% Topical 5gm Tube) 1 missael PRN Q4HRS PRN TP PAIN Last administered on 05/23/17at 05:41; Start 05/20/17 at 14:59 Artificial Tears (Artificial Tears) 1 drop PRN QID PRN OU DRY EYE Last administered on 05/29/17 08:44; Start 05/20/17 at 14:59 Gabapentin (Neurontin) 600 mg TID PO Last administered on 06/01/17 19:24; Start 05/20/17 at 21:00; Stop 06/01/17 at 23:00; Status DC Duloxetine HCl (Cymbalta) 30 mg DAILY PO Last administered on 06/03/17at 07:42; Start 05/21/17 at 09:00; Stop 06/03/17 at 18:33; Status DC Lamotrigine (LaMICtal) 150 mg DAILY PO Last administered on 05/29/17 08:40; Start 05/21/17 at 09:00; Stop 05/29/17 at 17:46; Status DC Lamotrigine (LaMICtal) 200 mg HS PO Last administered on 05/28/17 19:45; Start 05/20/17 at 21:00; Stop 05/29/17 at 17:46; Status DC Prenat Multivit/ [place]/Iron/Folic Ac (Multivitamin ) 1 tab DAILYBFRSUP PO Last administered on 06/25/17 07:27; Start 05/21/17 at 17:00 Fosfomycin Tromethamine (Monurol) 3 gm 1X ONCE PO Last administered on at 15:00; Start 05/21/17 at 15:00; Stop 05/21/17 at 15:01; Status DC Quetiapine Fumarate (SEROquel) 300 mg QHS PO Last administered on 05/25/17 20: 28; Start 05/23/17 at 21:00; Stop 05/26/17 at 17:47; Status DC Nystatin (Nystop) 15 missael STK-MED ONCE TP Last administered on 05/24/17at 17:40; Start 05/24/17 at 17:40; Stop 05/24/17 at 17:41; Status DC Sodium Chloride (Saline Mist Nasal) 1 missael PRN Q1HR PRN NS NASAL CONGESTION Last administered on 05/27/17at 20:38; Start 05/25/17 at 09:15 Quetiapine Fumarate (SEROquel) 200 mg QHS PO Last administered on 06/04/17at 20: 24; Start 05/26/17 at 21:00; Stop 06/05/17 at 17:39; Status DC Ketorolac Tromethamine (Acular) 1 drop Q8HRS OD Last administered on 06/03/17at 06:23; Start 05/29/17 at 14:00; Stop 06/03/17 at 13:59; Status DC Lamotrigine (LaMICtal) 200 mg BID PO Last administered on 06/03/17at 07:42; Start 05/29/17 at 21:00; Stop 06/03/17 at 18:33; Status DC Clonazepam (KlonoPIN) 1 mg DAILY PO Last administered on 06/01/17at 08:07; Start 05/30/17 at 09:00; Stop 06/01/17 at 12:25; Status DC Clonazepam (KlonoPIN) 0.75 mg QHS PO Last administered on 06/07/17at 19:56; Start 05/29/17 at 21:00; Stop 06/08/17 at 21:00; Status DC Donepezil HCl (Aricept) 10 mg QHS PO Last administered on 06/06/17at 20:22; Start 05/31/17 at 21:00; Stop 06/07/17 at 18:46; Status DC Clonazepam (KlonoPIN) 0.75 mg DAILY PO Last administered on 06/04/17at 07:52; Start 06/02/17 at 09:00; Stop 06/04/17 at 09:01; Status DC Clonazepam (KlonoPIN) 0.5 mg DAILY PO Last administered on 06/13/17at 08:01; Start 06/05/17 at 09:00; Stop 06/13/17 at 09:01; Status DC Clonazepam (KlonoPIN) 0.5 mg HS PO Last administered on 06/10/17at 20:35; Start 06/08/17 at 21:00; Stop 06/10/17 at 21:01; Status DC Ciprofloxacin (Cipro) 250 mg BID PO Last administered on 06/06/17at 08:20; Start 06/01/17 at 21:00; Stop 06/06/17 at 20:59; Status DC Gabapentin (Neurontin) 300 mg QID PO Last administered on 06/05/17at 19:42; Start 06/02/17 at 04:00; Stop 06/05/17 at 23:00; Status DC Gabapentin (Neurontin) 300 mg TID PO Last administered on 06/08/17at 20:23; Start 06/06/17 at 04:00; Stop 06/08/17 at 23:00; Status DC Gabapentin (Neurontin) 300 mg BID PO ; Start 06/09/17 at 04:00; Stop 06/09/17 at 04:00; Status DC Lactobacillus Rhamnosus (Culturelle) 1 cap BID PO Last administered on at 19:45; Start 06/02/17 at 21:00; Stop 06/24/17 at 07:51; Status DC Nystatin (Mycostatin) 1 missael BID TP ; Start 06/02/17 at 21:00; Stop 06/02/17 at 21: 07; Status DC Nystatin (Mycostatin) 1 missael BID TP ; Start 06/02/17 at 21:00; Stop 06/03/17 at 07 :47; Status DC Nystatin (Nystop) 1 missael BID TP Last administered on 06/25/17at 20:11; Start 06/03 at 09:00 Lamotrigine (LaMICtal) 150 mg HS PO Last administered on 06/05/17at 19:40; Start 06/03/17 at 21:00; Stop 06/06/17 at 00:00; Status DC Duloxetine HCl (Cymbalta) 60 mg DAILY PO Last administered on 06/07/17at 09:02; Start 06/04/17 at 09:00; Stop 06/07/17 at 18:46; Status DC Lamotrigine (LaMICtal) 100 mg DAILY PO Last administered on 06/04/17at 07:54; Start 06/04/17 at 09:00; Stop 06/04/17 at 09:50; Status DC Lamotrigine (LaMICtal) 200 mg DAILY PO Last administered on 06/25/17at 07:27; Start 06/05/17 at 09:00 Lamotrigine (LaMICtal) 200 mg HS PO Last administered on 06/25/17at 20:09; Start 06/06/17 at 21:00 Lamotrigine (LaMICtal) 100 mg 1X ONCE PO Last administered on 06/04/17at 10:00 ; Start 06/04/17 at 10:00; Stop 06/04/17 at 10:01; Status DC Quetiapine Fumarate (SEROquel) 250 mg QHS PO Last administered on 06/21/17at 20: 33; Start 06/05/17 at 21:00; Stop 06/22/17 at 19:07; Status DC Duloxetine HCl (Cymbalta) 30 mg DAILY PO Last administered on 06/10/17at 07:58; Start 06/08/17 at 09:00; Stop 06/11/17 at 08:59; Status DC Gabapentin (Neurontin) 300 mg BID PO Last administered on 06/14/17at 09:08; Start 06/10/17 at 09:00; Stop 06/14/17 at 18:36; Status DC Olanzapine (ZyPREXA ZYDIS) 2.5 mg PRN Q2HR PRN PO PSYCHOSIS Last administered on 06/25/17at 11:44; Start 06/09/17 at 18:45 Clonazepam (KlonoPIN) 0.25 mg DAILY PO Last administered on 06/16/17at 08:57; Start 06/14/17 at 09:00; Stop 06/16/17 at 09:00; Status DC Clonazepam (KlonoPIN) 0.5 mg HS PO Last administered on 06/16/17at 19:38; Start 06/13/17 at 21:00; Stop 06/16/17 at 21:00; Status DC Clonazepam (KlonoPIN) 0.25 mg BID PO Last administered on 06/20/17at 19:26; Start 06/17/17 at 09:00; Stop 06/21/17 at 08:59; Status DC Gabapentin (Neurontin) 300 mg DAILY PO Last administered on 06/17/17at 08:22; Start 06/15/17 at 09:00; Stop 06/18/17 at 08:59; Status DC Clonazepam (KlonoPIN) 0.25 mg DAILY PO Last administered on 06/23/17at 09:34; Start 06/21/17 at 09:00; Stop 06/24/17 at 08:59; Status DC Quetiapine Fumarate (SEROquel) 200 mg QHS PO Last administered on 06/25/17at 20: 09; Start 06/22/17 at 21:00 Quetiapine Fumarate (SEROquel) 25 mg 0900,1300 PO Last administered on at 11:44; Start 06/23/17 at 09:00 Active Scripts Active Reported Vitamin D3 (Cholecalciferol (Vitamin D3)) 1,000 Unit Tablet 3,000 Unit PO QHS Systane 0.3-0.4% Eye Drops (Propylene Glycol/Peg 400) 15 Ml Drops 1 Drop EACHEYE QID Systane 0.3-0.4% Eye Drops (Propylene Glycol/Peg 400) 15 Ml Drops 1 Drop EACHEYE QIDPRN PRN Pain Reliever Plus Tablet (Aspirin/Acetaminophen/Caffeine) 1 Each Tablet 2 Each PO PRN PRN Ondansetron Hcl 4 Mg Tablet 4 Mg PO PRN Q6HRS PRN Nystatin 100,000 Unit/1 Ml Oral.susp 100,000 Unit PO Nystatin 15 Gm Cream..g. 1 Missael TP PRN BID PRN Miralax (Polyethylene Glycol 3350) 17 Gm Powd.pack 17 Gm PO HS Lidocaine Hcl 5 Ml Jel..ml. 5 Ml TOP PRN Q4HRS Ketoconazole 120 Ml Shampoo 1 Missael TP TWICE WEEKLY Ibuprofen 100 Mg/5 Ml Oral.susp 200 Mg PO PRN TID PRN Hydroxyzine Hcl 25 Mg Tablet 25 Mg PO PRN Q4HRS PRN Hydrocortisone 453.6 Gm Oint...g. 1 Missael TP PRN BID PRN Epa-Dha 720 Softgel ([place]-3/Dha/Epa/Fish Oil) 1 Each Capsule 1 Each PO QHS Donepezil Hcl 5 Mg Tablet 5 Mg PO QHS Saline Nasal [place] (Sodium Chloride) 30 Ml [place] 1 Spr NS PRN PRN Tylenol (Acetaminophen) 325 Mg Tablet 650 Mg PO PRN Q4HRS PRN Seroquel (Quetiapine Fumarate) 400 Mg Tablet 400 Mg PO HS Mirtazapine 15 Mg Tablet 15 Mg PO QHS Lamotrigine 150 Mg Tablet 150 Mg PO BID Fluticasone Propionate Nasal [place] (Fluticasone Propionate) 16 Gm [place].susp 2 [place] NS PRN BID PRN Effexor Xr (Venlafaxine Hcl) 150 Mg Cap.er.24h 150 Mg PO DAILY Multi Vitamin Daily (Multivitamin) 1 Each Tablet 1 Each PO DAILY Mucinex (Guaifenesin) 600 Mg Tablet.er 600 Mg PO PRN BID PRN Namenda (Memantine Hcl) 10 Mg Tablet 5 Mg PO DAILY Gabapentin 600 Mg Tablet 600 Mg PO QID Gabapentin 100 Mg Capsule 100 Mg PO PRN Q6HRS Clonazepam 1 Mg Tablet 1 Mg PO BID I have reviewed the current psychotropics carefully including drug interactions. Risk benefit ratio favors no change other than as noted in my dictated progress note. Diagnosis: Problems: (1) Major depression (2) Anxiety (3) Bipolar affective disorder, mixed (4) Anxiety disorder (5) Major depressive disorder, recurrent episode (6) Impulse control disorder BRIAN CHAPA MD Jun 25, 2017 20:16
[2017-06-26 06:30] VITALS: BP 111/60
[2017-06-26] MEDS: NYSTATIN TOPICAL POWDER 15GM BOTTLE. TP SCH ×2 (08:34→19:45)
[2017-06-26] MEDS: lamoTRIgine 100 MG TABLET. PO SCH ×2 (08:34→19:45)
[2017-06-26] MEDS: QUEtiapine 25 MG TABLET. PO SCH ×2 (08:34→14:08)
[2017-06-26] MEDS: KETOCONAZOLE 2% SHAMPOO 120ML BOTTLE. TP SCH (14:11)
[2017-06-26] MEDS: PRENATAL MULTIVITAMIN TABLET. PO SCH (16:04)
[2017-06-26 16:32] VITALS: BP 121/81
[2017-06-26] MEDS: CHOLECALCIFEROL (VITAMIN D3) 1,000 UNIT TABLET PO SCH (19:45)
[2017-06-26] MEDS: OMEGA-3 FATTY ACIDS/FISH OIL 1,000 MG CAPSULE. PO SCH (19:45)
[2017-06-26] MEDS: QUEtiapine 100 MG TABLET. PO SCH (19:45)
[2017-06-26] MEDS: POLYETHYLENE GLYCOL 3350 17 GM PACKET. PO SCH (19:45)
--- NOTE | 2017-06-26 20:05 | PDOC ---
Exam Note: Greg Note: Please also refer to the separate dictated note~for this date of service dictated separately.~Patient seen individually. Discussed the patient with Nursing staff reviewed the chart.~Reviewed interim history and current functioning. Reviewed vital signs,~Labs/ Radiology~and current medications noted below. Continue current treatment with the changes noted in the dictated addendum note Assessment: Vital Signs: Vital Signs Date Time Temp Pulse Resp B/P (MAP) Pulse Ox O2 Delivery O2 Flow Rate FiO2 06/26/17 16:32 98.6 98 20 121/81 (94) 96 06/24/17 16:45 Room Air I&O Intake and Output 06/26/17 07:00 Intake Total 960 ml Balance 960 ml Intake Oral 960 ml # Voids 1 # Bowel Movements 1 Current Medications: Meds: Current Medications Acetaminophen (Tylenol) 650 mg PRN Q6HRS PRN PO PAIN / TEMP; Start 05/19/17 at 16:15; Stop 05/19/17 at 18:42; Status DC Multi-Ingredient Ointment (Analgesic [place]) 1 missael PRN QID PRN TP MUSCLE PAIN Last administered on 06/20/17at 09:44; Start 05/19/17 at 16:15 Al Hydroxide/Mg Hydroxide (Mylanta Plus Xs) 15 ml PRN AFTMEALHC PRN PO DYSPEPSIA Last administered on 05/26/17at 20:02; Start 05/19/17 at 16:15 Magnesium Hydroxide (Milk Of Magnesia) 2,400 mg PRN QHS PRN PO CONSTIPATION Last administered on 06/25/17at 05:58; Start 05/19/17 at 16:15 Clonazepam (KlonoPIN) 1 mg BID PO Last administered on 05/29/17at 08:45; Start at 21:00; Stop 05/29/17 at 17:47; Status DC Donepezil HCl (Aricept) 5 mg QHS PO Last administered on 05/30/17at 20:24; Start 05/19/17 at 21:00; Stop 05/31/17 at 18:41; Status DC Lamotrigine (LaMICtal) 150 mg BID PO Last administered on 05/20/17at 20:17; Start 05/19/17 at 21:00; Stop 05/20/17 at 20:37; Status DC Memantine (Namenda) 5 mg DAILY PO Last administered on 06/07/17at 09:02; Start 05/20/17 at 09:00; Stop 06/07/17 at 18:46; Status DC Mirtazapine (Remeron) 15 mg QHS PO Last administered on 06/06/17at 20:36; Start 05/19/17 at 21:00; Stop 06/07/17 at 18:46; Status DC Quetiapine Fumarate (SEROquel) 400 mg QHS PO Last administered on 05/22/17at 19: 57; Start 05/19/17 at 21:00; Stop 05/23/17 at 18:44; Status DC Venlafaxine HCl (Effexor) 50 mg TID PO Last administered on 05/20/17at 14:00; Start 05/19/17 at 21:00; Stop 05/20/17 at 19:25; Status DC Acetaminophen (Tylenol) 650 mg PRN Q4HRS PRN PO PAIN Last administered on at 19:43; Start 05/19/17 at 18:15 Vitamin D (Vitamin D3) 3,000 unit QHS PO Last administered on 06/26/17at 19:45; Start 05/19/17 at 21:00 Fluticasone Propionate (Flonase) 2 spray PRN BID PRN NS ALLERGIES; Start at 18:15 Gabapentin (Neurontin) 100 mg PRN Q6HRS PRN PO ANXIETY; Start 05/19/17 at 18:15 ; Stop 05/20/17 at 19:25; Status DC Guaifenesin (Mucinex Er) 600 mg PRN BID PRN PO coughing; Start 05/19/17 at 18: 15 Ketoconazole (Nizoral 2% Shampoo) 1 missael QMONFR TP Last administered on at 14:11; Start 05/26/17 at 16:00 Lidocaine HCl (Uro-Jet) 5 missael PRN Q4HRS PRN TP PAIN; Start 05/19/17 at 18:15; Stop 05/19/17 at 20:05; Status DC Nystatin (Mycostatin) 1 missael PRN BID PRN TP itching; Start 05/19/17 at 18:15; Stop 06/02/17 at 11:13; Status DC Polyethylene Glycol (miraLAX) 17 gm HS PO Last administered on 06/26/17 19:45; Start 05/19/17 at 21:00 Gabapentin (Neurontin) 600 mg QID PO Last administered on 05/20/17at 17:21; Start 05/19/17 at 21:00; Stop 05/20/17 at 19:25; Status DC Multivitamins/ Calcium (Thera-M Plus) 1 tab DAILY PO Last administered on at 07:59; Start 05/20/17 at 09:00; Stop 05/21/17 at 14:59; Status DC Fish Oil (Fish Oil) 1,000 mg QHS PO Last administered on 06/26/17 19:45; Start 05/19/17 at 21:00 Ondansetron HCl (Zofran Odt) 4 mg PRN Q6HRS PRN PO NAUSEA; Start 05/19/17 at 19 :00 Non-Formulary Medication 1 drop QID EACHEYE ; Start 05/19/17 at 21:00; Stop at 21:00; Status DC Artificial Tears (Artificial Tears) 1 drop PRN QID PRN OU DRY EYE; Start at 19:00; Stop 05/20/17 at 14:59; Status DC Lidocaine HCl (Xylocaine 2% Topical 5gm Tube) 1 missael PRN Q4HRS PRN TP PAIN; Start 05/19/17 at 20:15; Stop 05/20/17 at 14:59; Status DC Lidocaine HCl (Xylocaine 2% Topical 5gm Tube) 1 missael PRN Q4HRS PRN TP PAIN Last administered on 05/23/17at 05:41; Start 05/20/17 at 14:59 Artificial Tears (Artificial Tears) 1 drop PRN QID PRN OU DRY EYE Last administered on 05/29/17at 08:44; Start 05/20/17 at 14:59 Gabapentin (Neurontin) 600 mg TID PO Last administered on 06/01/17 19:24; Start 05/20/17 at 21:00; Stop 06/01/17 at 23:00; Status DC Duloxetine HCl (Cymbalta) 30 mg DAILY PO Last administered on 06/03/17at 07:42; Start 05/21/17 at 09:00; Stop 06/03/17 at 18:33; Status DC Lamotrigine (LaMICtal) 150 mg DAILY PO Last administered on 05/29/17 08:40; Start 05/21/17 at 09:00; Stop 05/29/17 at 17:46; Status DC Lamotrigine (LaMICtal) 200 mg HS PO Last administered on 05/28/17at 19:45; Start 05/20/17 at 21:00; Stop 05/29/17 at 17:46; Status DC Prenat Multivit/ Senior Hr Generalist/Iron/Folic Ac (Multivitamin ) 1 tab DAILYBFRSUP PO Last administered on 06/26/17 16:04; Start 05/21/17 at 17:00 Fosfomycin Tromethamine (Monurol) 3 gm 1X ONCE PO Last administered on at 15:00; Start 05/21/17 at 15:00; Stop 05/21/17 at 15:01; Status DC Quetiapine Fumarate (SEROquel) 300 mg QHS PO Last administered on 05/25/17 20: 28; Start 05/23/17 at 21:00; Stop 05/26/17 at 17:47; Status DC Nystatin (Nystop) 15 missael STK-MED ONCE TP Last administered on 05/24/17at 17:40; Start 05/24/17 at 17:40; Stop 05/24/17 at 17:41; Status DC Sodium Chloride (Saline Mist Nasal) 1 missael PRN Q1HR PRN NS NASAL CONGESTION Last administered on 05/27/17at 20:38; Start 05/25/17 at 09:15 Quetiapine Fumarate (SEROquel) 200 mg QHS PO Last administered on 06/04/17at 20: 24; Start 05/26/17 at 21:00; Stop 06/05/17 at 17:39; Status DC Ketorolac Tromethamine (Acular) 1 drop Q8HRS OD Last administered on 06/03/17 06:23; Start 05/29/17 at 14:00; Stop 06/03/17 at 13:59; Status DC Lamotrigine (LaMICtal) 200 mg BID PO Last administered on 06/03/17at 07:42; Start 05/29/17 at 21:00; Stop 06/03/17 at 18:33; Status DC Clonazepam (KlonoPIN) 1 mg DAILY PO Last administered on 06/01/17at 08:07; Start 05/30/17 at 09:00; Stop 06/01/17 at 12:25; Status DC Clonazepam (KlonoPIN) 0.75 mg QHS PO Last administered on 06/07/17at 19:56; Start 05/29/17 at 21:00; Stop 06/08/17 at 21:00; Status DC Donepezil HCl (Aricept) 10 mg QHS PO Last administered on 06/06/17at 20:22; Start 05/31/17 at 21:00; Stop 06/07/17 at 18:46; Status DC Clonazepam (KlonoPIN) 0.75 mg DAILY PO Last administered on 06/04/17at 07:52; Start 06/02/17 at 09:00; Stop 06/04/17 at 09:01; Status DC Clonazepam (KlonoPIN) 0.5 mg DAILY PO Last administered on 06/13/17at 08:01; Start 06/05/17 at 09:00; Stop 06/13/17 at 09:01; Status DC Clonazepam (KlonoPIN) 0.5 mg HS PO Last administered on 06/10/17at 20:35; Start 06/08/17 at 21:00; Stop 06/10/17 at 21:01; Status DC Ciprofloxacin (Cipro) 250 mg BID PO Last administered on 06/06/17at 08:20; Start 06/01/17 at 21:00; Stop 06/06/17 at 20:59; Status DC Gabapentin (Neurontin) 300 mg QID PO Last administered on 06/05/17at 19:42; Start 06/02/17 at 04:00; Stop 06/05/17 at 23:00; Status DC Gabapentin (Neurontin) 300 mg TID PO Last administered on 06/08/17at 20:23; Start 06/06/17 at 04:00; Stop 06/08/17 at 23:00; Status DC Gabapentin (Neurontin) 300 mg BID PO ; Start 06/09/17 at 04:00; Stop 06/09/17 at 04:00; Status DC Lactobacillus Rhamnosus (Culturelle) 1 cap BID PO Last administered on at 19:45; Start 06/02/17 at 21:00; Stop 06/24/17 at 07:51; Status DC Nystatin (Mycostatin) 1 missael BID TP ; Start 06/02/17 at 21:00; Stop 06/02/17 at 21: 07; Status DC Nystatin (Mycostatin) 1 missael BID TP ; Start 06/02/17 at 21:00; Stop 06/03/17 at 07 :47; Status DC Nystatin (Nystop) 1 missael BID TP Last administered on 06/26/17at 19:45; Start 06/03 at 09:00 Lamotrigine (LaMICtal) 150 mg HS PO Last administered on 06/05/17at 19:40; Start 06/03/17 at 21:00; Stop 06/06/17 at 00:00; Status DC Duloxetine HCl (Cymbalta) 60 mg DAILY PO Last administered on 06/07/17at 09:02; Start 06/04/17 at 09:00; Stop 06/07/17 at 18:46; Status DC Lamotrigine (LaMICtal) 100 mg DAILY PO Last administered on 06/04/17at 07:54; Start 06/04/17 at 09:00; Stop 06/04/17 at 09:50; Status DC Lamotrigine (LaMICtal) 200 mg DAILY PO Last administered on 06/26/17at 08:34; Start 06/05/17 at 09:00 Lamotrigine (LaMICtal) 200 mg HS PO Last administered on 06/26/17at 19:45; Start 06/06/17 at 21:00 Lamotrigine (LaMICtal) 100 mg 1X ONCE PO Last administered on 06/04/17at 10:00 ; Start 06/04/17 at 10:00; Stop 06/04/17 at 10:01; Status DC Quetiapine Fumarate (SEROquel) 250 mg QHS PO Last administered on 06/21/17at 20: 33; Start 06/05/17 at 21:00; Stop 06/22/17 at 19:07; Status DC Duloxetine HCl (Cymbalta) 30 mg DAILY PO Last administered on 06/10/17at 07:58; Start 06/08/17 at 09:00; Stop 06/11/17 at 08:59; Status DC Gabapentin (Neurontin) 300 mg BID PO Last administered on 06/14/17at 09:08; Start 06/10/17 at 09:00; Stop 06/14/17 at 18:36; Status DC Olanzapine (ZyPREXA ZYDIS) 2.5 mg PRN Q2HR PRN PO PSYCHOSIS Last administered on 06/25/17 11:44; Start 06/09/17 at 18:45 Clonazepam (KlonoPIN) 0.25 mg DAILY PO Last administered on 06/16/17at 08:57; Start 06/14/17 at 09:00; Stop 06/16/17 at 09:00; Status DC Clonazepam (KlonoPIN) 0.5 mg HS PO Last administered on 06/16/17at 19:38; Start 06/13/17 at 21:00; Stop 06/16/17 at 21:00; Status DC Clonazepam (KlonoPIN) 0.25 mg BID PO Last administered on 06/20/17at 19:26; Start 06/17/17 at 09:00; Stop 06/21/17 at 08:59; Status DC Gabapentin (Neurontin) 300 mg DAILY PO Last administered on 06/17/17 08:22; Start 06/15/17 at 09:00; Stop 06/18/17 at 08:59; Status DC Clonazepam (KlonoPIN) 0.25 mg DAILY PO Last administered on 06/23/17 09:34; Start 06/21/17 at 09:00; Stop 06/24/17 at 08:59; Status DC Quetiapine Fumarate (SEROquel) 200 mg QHS PO Last administered on 06/26/17 19: 45; Start 06/22/17 at 21:00 Quetiapine Fumarate (SEROquel) 25 mg 0900,1300 PO Last administered on 14:08; Start 06/23/17 at 09:00 Active Scripts Active Reported Vitamin D3 (Cholecalciferol (Vitamin D3)) 1,000 Unit Tablet 3,000 Unit PO QHS Systane 0.3-0.4% Eye Drops (Propylene Glycol/Peg 400) 15 Ml Drops 1 Drop EACHEYE QID Systane 0.3-0.4% Eye Drops (Propylene Glycol/Peg 400) 15 Ml Drops 1 Drop EACHEYE QIDPRN PRN Pain Reliever Plus Tablet (Aspirin/Acetaminophen/Caffeine) 1 Each Tablet 2 Each PO PRN PRN Ondansetron Hcl 4 Mg Tablet 4 Mg PO PRN Q6HRS PRN Nystatin 100,000 Unit/1 Ml Oral.susp 100,000 Unit PO Nystatin 15 Gm Cream..g. 1 Missael TP PRN BID PRN Miralax (Polyethylene Glycol 3350) 17 Gm Powd.pack 17 Gm PO HS Lidocaine Hcl 5 Ml Jel..ml. 5 Ml TOP PRN Q4HRS Ketoconazole 120 Ml Shampoo 1 Missael TP TWICE WEEKLY Ibuprofen 100 Mg/5 Ml Oral.susp 200 Mg PO PRN TID PRN Hydroxyzine Hcl 25 Mg Tablet 25 Mg PO PRN Q4HRS PRN Hydrocortisone 453.6 Gm Oint...g. 1 Missael TP PRN BID PRN Epa-Dha 720 Softgel ([place]-3/Dha/Epa/Fish Oil) 1 Each Capsule 1 Each PO QHS Donepezil Hcl 5 Mg Tablet 5 Mg PO QHS Saline Nasal [place] (Sodium Chloride) 30 Ml [place] 1 Spr NS PRN PRN Tylenol (Acetaminophen) 325 Mg Tablet 650 Mg PO PRN Q4HRS PRN Seroquel (Quetiapine Fumarate) 400 Mg Tablet 400 Mg PO HS Mirtazapine 15 Mg Tablet 15 Mg PO QHS Lamotrigine 150 Mg Tablet 150 Mg PO BID Fluticasone Propionate Nasal [place] (Fluticasone Propionate) 16 Gm [place].susp 2 [place] NS PRN BID PRN Effexor Xr (Venlafaxine Hcl) 150 Mg Cap.er.24h 150 Mg PO DAILY Multi Vitamin Daily (Multivitamin) 1 Each Tablet 1 Each PO DAILY Mucinex (Guaifenesin) 600 Mg Tablet.er 600 Mg PO PRN BID PRN Namenda (Memantine Hcl) 10 Mg Tablet 5 Mg PO DAILY Gabapentin 600 Mg Tablet 600 Mg PO QID Gabapentin 100 Mg Capsule 100 Mg PO PRN Q6HRS Clonazepam 1 Mg Tablet 1 Mg PO BID I have reviewed the current psychotropics carefully including drug interactions. Risk benefit ratio favors no change other than as noted in my dictated progress note. Diagnosis: Problems: (1) Major depression (2) Anxiety (3) Bipolar affective disorder, mixed (4) Anxiety disorder (5) Major depressive disorder, recurrent episode (6) Impulse control disorder BRIAN CHAPA MD Jun 26, 2017 20:05
[2017-06-27 06:15] VITALS: BP 110/59
--- NOTE | 2017-06-27 06:36 | PN ---
DATE: 06/25/2017 PSYCHIATRIC PROGRESS NOTE This is a late entry, date of service 06/25/2017 covers elements not covered in my initial note 06/25/2017. SUBJECTIVE: I met with the patient evening of 06/25/2017. She is somewhat anxious at lunchtime, received Zyprexa and this seemed to help her. At times, she appears a little more disorganized due to her anxiety. REVIEW OF SYSTEMS: Impaired ambulation with walker. No CV, , pulmonary, eye, ENT system symptoms on review. Reliability fair. MENTAL STATUS EXAM: Oriented to herself and situation. Speech coherent, has some latency. Abstraction fair, computation impaired, language function intact, attention span short. Mood and affect remain somewhat anxious, at times labile, but improved. LABORATORY DATA: Reviewed. IMPRESSION: Bipolar disorder, mixed with psychotic features, in partial remission. Rest unchanged. PLAN: Continue psychotropics mentioned in my initial note. MAN Vidal CHAPA MD DR: ANTONIO/gianfranco JOB#: [id number] / [id number]
[2017-06-27] MEDS: lamoTRIgine 100 MG TABLET. PO SCH ×2 (07:57→19:37)
[2017-06-27] MEDS: QUEtiapine 25 MG TABLET. PO SCH ×2 (07:57→12:08)
[2017-06-27] MEDS: NYSTATIN TOPICAL POWDER 15GM BOTTLE. TP SCH ×2 (07:58→19:37)
[2017-06-27 15:58] VITALS: BP 102/65
[2017-06-27] MEDS: PRENATAL MULTIVITAMIN TABLET. PO SCH (16:35)
[2017-06-27] MEDS: OMEGA-3 FATTY ACIDS/FISH OIL 1,000 MG CAPSULE. PO SCH (19:37)
[2017-06-27] MEDS: QUEtiapine 100 MG TABLET. PO SCH (19:37)
[2017-06-27] MEDS: POLYETHYLENE GLYCOL 3350 17 GM PACKET. PO SCH (19:37)
[2017-06-27] MEDS: CHOLECALCIFEROL (VITAMIN D3) 1,000 UNIT TABLET PO SCH (19:37)
--- NOTE | 2017-06-27 19:59 | PDOC ---
Exam Note: Greg Note: Please also refer to the separate dictated note~for this date of service dictated separately.~Patient seen individually. Discussed the patient with Nursing staff reviewed the chart.~Reviewed interim history and current functioning. Reviewed vital signs,~Labs/ Radiology~and current medications noted below. Continue current treatment with the changes noted in the dictated addendum note Assessment: Vital Signs: Vital Signs Date Time Temp Pulse Resp B/P (MAP) Pulse Ox O2 Delivery O2 Flow Rate FiO2 06/27/17 15:58 97.9 98 20 102/65 (77) 98 06/24/17 16:45 Room Air I&O Intake and Output 06/27/17 07:00 Intake Total 1080 ml Balance 1080 ml Intake Oral 1080 ml # Voids 1 # Bowel Movements 1 Current Medications: Meds: Current Medications Acetaminophen (Tylenol) 650 mg PRN Q6HRS PRN PO PAIN / TEMP; Start 05/19/17 at 16:15; Stop 05/19/17 at 18:42; Status DC Multi-Ingredient Ointment (Analgesic [place]) 1 missael PRN QID PRN TP MUSCLE PAIN Last administered on 06/20/17at 09:44; Start 05/19/17 at 16:15 Al Hydroxide/Mg Hydroxide (Mylanta Plus Xs) 15 ml PRN AFTMEALHC PRN PO DYSPEPSIA Last administered on 05/26/17at 20:02; Start 05/19/17 at 16:15 Magnesium Hydroxide (Milk Of Magnesia) 2,400 mg PRN QHS PRN PO CONSTIPATION Last administered on 06/25/17at 05:58; Start 05/19/17 at 16:15 Clonazepam (KlonoPIN) 1 mg BID PO Last administered on 05/29/17at 08:45; Start at 21:00; Stop 05/29/17 at 17:47; Status DC Donepezil HCl (Aricept) 5 mg QHS PO Last administered on 05/30/17at 20:24; Start 05/19/17 at 21:00; Stop 05/31/17 at 18:41; Status DC Lamotrigine (LaMICtal) 150 mg BID PO Last administered on 05/20/17at 20:17; Start 05/19/17 at 21:00; Stop 05/20/17 at 20:37; Status DC Memantine (Namenda) 5 mg DAILY PO Last administered on 06/07/17at 09:02; Start 05/20/17 at 09:00; Stop 06/07/17 at 18:46; Status DC Mirtazapine (Remeron) 15 mg QHS PO Last administered on 06/06/17at 20:36; Start 05/19/17 at 21:00; Stop 06/07/17 at 18:46; Status DC Quetiapine Fumarate (SEROquel) 400 mg QHS PO Last administered on 05/22/17at 19: 57; Start 05/19/17 at 21:00; Stop 05/23/17 at 18:44; Status DC Venlafaxine HCl (Effexor) 50 mg TID PO Last administered on 05/20/17at 14:00; Start 05/19/17 at 21:00; Stop 05/20/17 at 19:25; Status DC Acetaminophen (Tylenol) 650 mg PRN Q4HRS PRN PO PAIN Last administered on at 19:43; Start 05/19/17 at 18:15 Vitamin D (Vitamin D3) 3,000 unit QHS PO Last administered on 06/27/17at 19:37; Start 05/19/17 at 21:00 Fluticasone Propionate (Flonase) 2 spray PRN BID PRN NS ALLERGIES; Start at 18:15 Gabapentin (Neurontin) 100 mg PRN Q6HRS PRN PO ANXIETY; Start 05/19/17 at 18:15 ; Stop 05/20/17 at 19:25; Status DC Guaifenesin (Mucinex Er) 600 mg PRN BID PRN PO coughing; Start 05/19/17 at 18: 15 Ketoconazole (Nizoral 2% Shampoo) 1 missael QMONFR TP Last administered on at 14:11; Start 05/26/17 at 16:00 Lidocaine HCl (Uro-Jet) 5 missael PRN Q4HRS PRN TP PAIN; Start 05/19/17 at 18:15; Stop 05/19/17 at 20:05; Status DC Nystatin (Mycostatin) 1 missael PRN BID PRN TP itching; Start 05/19/17 at 18:15; Stop 06/02/17 at 11:13; Status DC Polyethylene Glycol (miraLAX) 17 gm HS PO Last administered on 06/27/17 19:37; Start 05/19/17 at 21:00 Gabapentin (Neurontin) 600 mg QID PO Last administered on 05/20/17at 17:21; Start 05/19/17 at 21:00; Stop 05/20/17 at 19:25; Status DC Multivitamins/ Calcium (Thera-M Plus) 1 tab DAILY PO Last administered on at 07:59; Start 05/20/17 at 09:00; Stop 05/21/17 at 14:59; Status DC Fish Oil (Fish Oil) 1,000 mg QHS PO Last administered on 06/27/17 19:37; Start 05/19/17 at 21:00 Ondansetron HCl (Zofran Odt) 4 mg PRN Q6HRS PRN PO NAUSEA; Start 05/19/17 at 19 :00 Non-Formulary Medication 1 drop QID EACHEYE ; Start 05/19/17 at 21:00; Stop at 21:00; Status DC Artificial Tears (Artificial Tears) 1 drop PRN QID PRN OU DRY EYE; Start at 19:00; Stop 05/20/17 at 14:59; Status DC Lidocaine HCl (Xylocaine 2% Topical 5gm Tube) 1 missael PRN Q4HRS PRN TP PAIN; Start 05/19/17 at 20:15; Stop 05/20/17 at 14:59; Status DC Lidocaine HCl (Xylocaine 2% Topical 5gm Tube) 1 missael PRN Q4HRS PRN TP PAIN Last administered on 05/23/17at 05:41; Start 05/20/17 at 14:59 Artificial Tears (Artificial Tears) 1 drop PRN QID PRN OU DRY EYE Last administered on 05/29/17at 08:44; Start 05/20/17 at 14:59 Gabapentin (Neurontin) 600 mg TID PO Last administered on 06/01/17 19:24; Start 05/20/17 at 21:00; Stop 06/01/17 at 23:00; Status DC Duloxetine HCl (Cymbalta) 30 mg DAILY PO Last administered on 06/03/17at 07:42; Start 05/21/17 at 09:00; Stop 06/03/17 at 18:33; Status DC Lamotrigine (LaMICtal) 150 mg DAILY PO Last administered on 05/29/17at 08:40; Start 05/21/17 at 09:00; Stop 05/29/17 at 17:46; Status DC Lamotrigine (LaMICtal) 200 mg HS PO Last administered on 05/28/17at 19:45; Start 05/20/17 at 21:00; Stop 05/29/17 at 17:46; Status DC Prenat Multivit/ Partner Marketing Intern/Iron/Folic Ac (Multivitamin ) 1 tab DAILYBFRSUP PO Last administered on 06/27/17 16:35; Start 05/21/17 at 17:00 Fosfomycin Tromethamine (Monurol) 3 gm 1X ONCE PO Last administered on at 15:00; Start 05/21/17 at 15:00; Stop 05/21/17 at 15:01; Status DC Quetiapine Fumarate (SEROquel) 300 mg QHS PO Last administered on 05/25/17at 20: 28; Start 05/23/17 at 21:00; Stop 05/26/17 at 17:47; Status DC Nystatin (Nystop) 15 missael STK-MED ONCE TP Last administered on 05/24/17at 17:40; Start 05/24/17 at 17:40; Stop 05/24/17 at 17:41; Status DC Sodium Chloride (Saline Mist Nasal) 1 missael PRN Q1HR PRN NS NASAL CONGESTION Last administered on 05/27/17 20:38; Start 05/25/17 at 09:15 Quetiapine Fumarate (SEROquel) 200 mg QHS PO Last administered on 06/04/17at 20: 24; Start 05/26/17 at 21:00; Stop 06/05/17 at 17:39; Status DC Ketorolac Tromethamine (Acular) 1 drop Q8HRS OD Last administered on 06/03/17 06:23; Start 05/29/17 at 14:00; Stop 06/03/17 at 13:59; Status DC Lamotrigine (LaMICtal) 200 mg BID PO Last administered on 06/03/17at 07:42; Start 05/29/17 at 21:00; Stop 06/03/17 at 18:33; Status DC Clonazepam (KlonoPIN) 1 mg DAILY PO Last administered on 06/01/17at 08:07; Start 05/30/17 at 09:00; Stop 06/01/17 at 12:25; Status DC Clonazepam (KlonoPIN) 0.75 mg QHS PO Last administered on 06/07/17at 19:56; Start 05/29/17 at 21:00; Stop 06/08/17 at 21:00; Status DC Donepezil HCl (Aricept) 10 mg QHS PO Last administered on 06/06/17at 20:22; Start 05/31/17 at 21:00; Stop 06/07/17 at 18:46; Status DC Clonazepam (KlonoPIN) 0.75 mg DAILY PO Last administered on 06/04/17at 07:52; Start 06/02/17 at 09:00; Stop 06/04/17 at 09:01; Status DC Clonazepam (KlonoPIN) 0.5 mg DAILY PO Last administered on 06/13/17at 08:01; Start 06/05/17 at 09:00; Stop 06/13/17 at 09:01; Status DC Clonazepam (KlonoPIN) 0.5 mg HS PO Last administered on 06/10/17at 20:35; Start 06/08/17 at 21:00; Stop 06/10/17 at 21:01; Status DC Ciprofloxacin (Cipro) 250 mg BID PO Last administered on 06/06/17at 08:20; Start 06/01/17 at 21:00; Stop 06/06/17 at 20:59; Status DC Gabapentin (Neurontin) 300 mg QID PO Last administered on 06/05/17at 19:42; Start 06/02/17 at 04:00; Stop 06/05/17 at 23:00; Status DC Gabapentin (Neurontin) 300 mg TID PO Last administered on 06/08/17at 20:23; Start 06/06/17 at 04:00; Stop 06/08/17 at 23:00; Status DC Gabapentin (Neurontin) 300 mg BID PO ; Start 06/09/17 at 04:00; Stop 06/09/17 at 04:00; Status DC Lactobacillus Rhamnosus (Culturelle) 1 cap BID PO Last administered on at 19:45; Start 06/02/17 at 21:00; Stop 06/24/17 at 07:51; Status DC Nystatin (Mycostatin) 1 missael BID TP ; Start 06/02/17 at 21:00; Stop 06/02/17 at 21: 07; Status DC Nystatin (Mycostatin) 1 missael BID TP ; Start 06/02/17 at 21:00; Stop 06/03/17 at 07 :47; Status DC Nystatin (Nystop) 1 missael BID TP Last administered on 06/27/17at 19:37; Start 06/03 at 09:00 Lamotrigine (LaMICtal) 150 mg HS PO Last administered on 06/05/17at 19:40; Start 06/03/17 at 21:00; Stop 06/06/17 at 00:00; Status DC Duloxetine HCl (Cymbalta) 60 mg DAILY PO Last administered on 06/07/17at 09:02; Start 06/04/17 at 09:00; Stop 06/07/17 at 18:46; Status DC Lamotrigine (LaMICtal) 100 mg DAILY PO Last administered on 06/04/17at 07:54; Start 06/04/17 at 09:00; Stop 06/04/17 at 09:50; Status DC Lamotrigine (LaMICtal) 200 mg DAILY PO Last administered on 06/27/17at 07:57; Start 06/05/17 at 09:00 Lamotrigine (LaMICtal) 200 mg HS PO Last administered on 06/27/17at 19:37; Start 06/06/17 at 21:00 Lamotrigine (LaMICtal) 100 mg 1X ONCE PO Last administered on 06/04/17at 10:00 ; Start 06/04/17 at 10:00; Stop 06/04/17 at 10:01; Status DC Quetiapine Fumarate (SEROquel) 250 mg QHS PO Last administered on 06/21/17at 20: 33; Start 06/05/17 at 21:00; Stop 06/22/17 at 19:07; Status DC Duloxetine HCl (Cymbalta) 30 mg DAILY PO Last administered on 06/10/17at 07:58; Start 06/08/17 at 09:00; Stop 06/11/17 at 08:59; Status DC Gabapentin (Neurontin) 300 mg BID PO Last administered on 06/14/17at 09:08; Start 06/10/17 at 09:00; Stop 06/14/17 at 18:36; Status DC Olanzapine (ZyPREXA ZYDIS) 2.5 mg PRN Q2HR PRN PO PSYCHOSIS Last administered on 06/27/17 19:43; Start 06/09/17 at 18:45 Clonazepam (KlonoPIN) 0.25 mg DAILY PO Last administered on 06/16/17at 08:57; Start 06/14/17 at 09:00; Stop 06/16/17 at 09:00; Status DC Clonazepam (KlonoPIN) 0.5 mg HS PO Last administered on 06/16/17at 19:38; Start 06/13/17 at 21:00; Stop 06/16/17 at 21:00; Status DC Clonazepam (KlonoPIN) 0.25 mg BID PO Last administered on 06/20/17at 19:26; Start 06/17/17 at 09:00; Stop 06/21/17 at 08:59; Status DC Gabapentin (Neurontin) 300 mg DAILY PO Last administered on 06/17/17at 08:22; Start 06/15/17 at 09:00; Stop 06/18/17 at 08:59; Status DC Clonazepam (KlonoPIN) 0.25 mg DAILY PO Last administered on 06/23/17at 09:34; Start 06/21/17 at 09:00; Stop 06/24/17 at 08:59; Status DC Quetiapine Fumarate (SEROquel) 200 mg QHS PO Last administered on 06/27/17at 19: 37; Start 06/22/17 at 21:00 Quetiapine Fumarate (SEROquel) 25 mg 0900,1300 PO Last administered on at 12:08; Start 06/23/17 at 09:00; Stop 06/27/17 at 18:26; Status DC Quetiapine Fumarate (SEROquel) 25 mg DAILY@1300 PO ; Start 06/28/17 at 13:00 Quetiapine Fumarate (SEROquel) 50 mg DAILY PO ; Start 06/28/17 at 09:00 Active Scripts Active Reported Vitamin D3 (Cholecalciferol (Vitamin D3)) 1,000 Unit Tablet 3,000 Unit PO QHS Systane 0.3-0.4% Eye Drops (Propylene Glycol/Peg 400) 15 Ml Drops 1 Drop EACHEYE QID Systane 0.3-0.4% Eye Drops (Propylene Glycol/Peg 400) 15 Ml Drops 1 Drop EACHEYE QIDPRN PRN Pain Reliever Plus Tablet (Aspirin/Acetaminophen/Caffeine) 1 Each Tablet 2 Each PO PRN PRN Ondansetron Hcl 4 Mg Tablet 4 Mg PO PRN Q6HRS PRN Nystatin 100,000 Unit/1 Ml Oral.susp 100,000 Unit PO Nystatin 15 Gm Cream..g. 1 Missael TP PRN BID PRN Miralax (Polyethylene Glycol 3350) 17 Gm Powd.pack 17 Gm PO HS Lidocaine Hcl 5 Ml Jel..ml. 5 Ml TOP PRN Q4HRS Ketoconazole 120 Ml Shampoo 1 Missael TP TWICE WEEKLY Ibuprofen 100 Mg/5 Ml Oral.susp 200 Mg PO PRN TID PRN Hydroxyzine Hcl 25 Mg Tablet 25 Mg PO PRN Q4HRS PRN Hydrocortisone 453.6 Gm Oint...g. 1 Missael TP PRN BID PRN Epa-Dha 720 Softgel ([place]-3/Dha/Epa/Fish Oil) 1 Each Capsule 1 Each PO QHS Donepezil Hcl 5 Mg Tablet 5 Mg PO QHS Saline Nasal [place] (Sodium Chloride) 30 Ml [place] 1 Spr NS PRN PRN Tylenol (Acetaminophen) 325 Mg Tablet 650 Mg PO PRN Q4HRS PRN Seroquel (Quetiapine Fumarate) 400 Mg Tablet 400 Mg PO HS Mirtazapine 15 Mg Tablet 15 Mg PO QHS Lamotrigine 150 Mg Tablet 150 Mg PO BID Fluticasone Propionate Nasal [place] (Fluticasone Propionate) 16 Gm [place].susp 2 [place] NS PRN BID PRN Effexor Xr (Venlafaxine Hcl) 150 Mg Cap.er.24h 150 Mg PO DAILY Multi Vitamin Daily (Multivitamin) 1 Each Tablet 1 Each PO DAILY Mucinex (Guaifenesin) 600 Mg Tablet.er 600 Mg PO PRN BID PRN Namenda (Memantine Hcl) 10 Mg Tablet 5 Mg PO DAILY Gabapentin 600 Mg Tablet 600 Mg PO QID Gabapentin 100 Mg Capsule 100 Mg PO PRN Q6HRS Clonazepam 1 Mg Tablet 1 Mg PO BID I have reviewed the current psychotropics carefully including drug interactions. Risk benefit ratio favors no change other than as noted in my dictated progress note. Diagnosis: Problems: (1) Major depression (2) Anxiety (3) Bipolar affective disorder, mixed (4) Anxiety disorder (5) Major depressive disorder, recurrent episode (6) Impulse control disorder BRIAN CHAPA MD Jun 27, 2017 19:59
[2017-06-28] MEDS ORDERED: LIDO5CRE18 TP (01:17)
[2017-06-28] MEDS ORDERED: MAG30ORA2 PO (01:20)
[2017-06-28] MEDS ORDERED: MAGN400O7 PO (01:20)
[2017-06-28] MEDS ORDERED: METH29OI TP (01:21)
[2017-06-28] MEDS ORDERED: NYST15PO9 TP (01:23)
[2017-06-28] MEDS ORDERED: OLAN5TAB5 PO (01:26)
[2017-06-28] MEDS ORDERED: OMEG-33 PO (01:27)
[2017-06-28] MEDS ORDERED: POLY15DR20 OU (01:30)
[2017-06-28] MEDS ORDERED: PREN1TAB58 PO (01:32)
[2017-06-28] MEDS ORDERED: PNV1TABL78 PO (01:34)
[2017-06-28] MEDS ORDERED: QUET200T4 PO (01:36)
[2017-06-28] MEDS ORDERED: QUET25TA5 PO (01:37)
[2017-06-28] MEDS ORDERED: QUET50TA5 PO (01:38)
[2017-06-28] MEDS ORDERED: LAMO200T2 PO ×2 (01:39→01:40)
[2017-06-28 06:29] VITALS: BP 126/76
[2017-06-28 07:27] VITALS: BP 137/74
[2017-06-28] MEDS: lamoTRIgine 100 MG TABLET. PO SCH ×2 (08:39→20:34)
[2017-06-28] MEDS: QUEtiapine 50 MG TABLET. PO SCH (08:40)
[2017-06-28] MEDS: NYSTATIN TOPICAL POWDER 15GM BOTTLE. TP SCH (08:41)
--- NOTE | 2017-06-28 09:11 | PN ---
DATE: 06/26/2017 PSYCHIATRIC PROGRESS NOTE This late entry 06/26/2017 covers elements, not covered in my initial note of 06/26/2017. I met with the patient in the evening of 06/26/2017. The patient has been less anxious, less attention seeking, confused, the previous night slept 5-3/4 hours, better during the day of 06/26/2017. REVIEW OF SYSTEMS: Ambulation impaired with walker. No CV, , pulmonary, eye, ENT system symptoms on review. MENTAL STATUS EXAM: Oriented to herself and situation. Speech has some latency, coherent. Abstraction fair, computation impaired, language function intact. Mood and affect showing improvement. LABORATORY DATA: Reviewed. IMPRESSION: Bipolar 1 disorder, mixed with psychotic features, in partial remission; cognitive disorder, unspecified; anxiety disorder, unspecified. PLAN: Continue psychotropics mentioned in my initial note. MAN Vidal CHAPA MD DR: ANTONIO/gianfranco JOB#: [id number] / [id number]
[2017-06-28] MEDS: QUEtiapine 25 MG TABLET. PO SCH (14:08)
[2017-06-28] MEDS: PRENATAL MULTIVITAMIN TABLET. PO SCH (14:08)
[2017-06-28 15:16] LABS: BACTERIA,URINE FEW /HPF (0-FEW); BILIRUBIN,URINE NEG (NEG); CLARITY,URINE CLOUDY; COLOR,URINE YELLOW; GLUCOSE,URINE NEG (NEG); NITRITE,URINE NEG (NEG); RBC,URINE 0 /HPF (0-2); SQUAMOUS EPITHELIAL CELL,UR OCC /LPF; UROBILINOGEN,URINE 0.2 mg/dL (0.2 mg/dL)
[2017-06-28 15:17] LABS: AMORPHOUS SEDIMENT,UR PRESENT /HPF
[2017-06-28 16:25] VITALS: BP 145/80
--- NOTE | 2017-06-28 20:03 | PDOC ---
Exam Note: Greg Note: Please also refer to the separate dictated note~for this date of service dictated separately.~Patient seen individually. Discussed the patient with Nursing staff reviewed the chart.~Reviewed interim history and current functioning. Reviewed vital signs,~Labs/ Radiology~and current medications noted below. Continue current treatment with the changes noted in the dictated addendum note Assessment: Vital Signs: Vital Signs Date Time Temp Pulse Resp B/P (MAP) Pulse Ox O2 Delivery O2 Flow Rate FiO2 06/28/17 16:25 98.5 112 20 145/80 (101) 96 06/24/17 16:45 Room Air I&O Intake and Output 06/28/17 07:00 Intake Total 1080 ml Balance 1080 ml Intake Oral 1080 ml # Voids 1 # Bowel Movements 2 Labs: Laboratory Tests Test 06/28/17 14:53 Urine Collection Type Unknown Urine Color Yellow Urine Clarity Cloudy Urine pH 7.0 Urine Specific Bledsoe 1.020 Urine Protein Neg (NEG-TRACE) Urine Glucose (UA) Neg mg/dL (NEG) Urine Ketones (Stick) Neg mg/dL (NEG) Urine Blood Trace (NEG) Urine Nitrite Neg (NEG) Urine Bilirubin Neg (NEG) Urine Urobilinogen Dipstick 0.2 mg/dL (0.2 mg/dL) Urine Leukocyte Esterase Mod (NEG) Urine RBC 0 /HPF (0-2) Urine WBC 11-20 /HPF (0-4) Urine Squamous Epithelial Cells Occ /LPF Urine Amorphous Sediment Present /HPF Urine Bacteria Few /HPF (0-FEW) Current Medications: Meds: Current Medications Acetaminophen (Tylenol) 650 mg PRN Q6HRS PRN PO PAIN / TEMP; Start 05/19/17 at 16:15; Stop 05/19/17 at 18:42; Status DC Multi-Ingredient Ointment (Analgesic [place]) 1 missael PRN QID PRN TP MUSCLE PAIN Last administered on 06/20/17at 09:44; Start 05/19/17 at 16:15 Al Hydroxide/Mg Hydroxide (Mylanta Plus Xs) 15 ml PRN AFTMEALHC PRN PO DYSPEPSIA Last administered on 05/26/17at 20:02; Start 05/19/17 at 16:15 Magnesium Hydroxide (Milk Of Magnesia) 2,400 mg PRN QHS PRN PO CONSTIPATION Last administered on 06/25/17at 05:58; Start 05/19/17 at 16:15 Clonazepam (KlonoPIN) 1 mg BID PO Last administered on 05/29/17at 08:45; Start at 21:00; Stop 05/29/17 at 17:47; Status DC Donepezil HCl (Aricept) 5 mg QHS PO Last administered on 05/30/17at 20:24; Start 05/19/17 at 21:00; Stop 05/31/17 at 18:41; Status DC Lamotrigine (LaMICtal) 150 mg BID PO Last administered on 05/20/17at 20:17; Start 05/19/17 at 21:00; Stop 05/20/17 at 20:37; Status DC Memantine (Namenda) 5 mg DAILY PO Last administered on 06/07/17at 09:02; Start 05/20/17 at 09:00; Stop 06/07/17 at 18:46; Status DC Mirtazapine (Remeron) 15 mg QHS PO Last administered on 06/06/17at 20:36; Start 05/19/17 at 21:00; Stop 06/07/17 at 18:46; Status DC Quetiapine Fumarate (SEROquel) 400 mg QHS PO Last administered on 05/22/17at 19: 57; Start 05/19/17 at 21:00; Stop 05/23/17 at 18:44; Status DC Venlafaxine HCl (Effexor) 50 mg TID PO Last administered on 05/20/17at 14:00; Start 05/19/17 at 21:00; Stop 05/20/17 at 19:25; Status DC Acetaminophen (Tylenol) 650 mg PRN Q4HRS PRN PO PAIN Last administered on at 19:43; Start 05/19/17 at 18:15 Vitamin D (Vitamin D3) 3,000 unit QHS PO Last administered on 06/27/17at 19:37; Start 05/19/17 at 21:00 Fluticasone Propionate (Flonase) 2 spray PRN BID PRN NS ALLERGIES; Start at 18:15 Gabapentin (Neurontin) 100 mg PRN Q6HRS PRN PO ANXIETY; Start 05/19/17 at 18:15 ; Stop 05/20/17 at 19:25; Status DC Guaifenesin (Mucinex Er) 600 mg PRN BID PRN PO coughing; Start 05/19/17 at 18: 15 Ketoconazole (Nizoral 2% Shampoo) 1 missael QMONFR TP Last administered on at 14:11; Start 05/26/17 at 16:00 Lidocaine HCl (Uro-Jet) 5 missael PRN Q4HRS PRN TP PAIN; Start 05/19/17 at 18:15; Stop 05/19/17 at 20:05; Status DC Nystatin (Mycostatin) 1 missael PRN BID PRN TP itching; Start 05/19/17 at 18:15; Stop 06/02/17 at 11:13; Status DC Polyethylene Glycol (miraLAX) 17 gm HS PO Last administered on 06/27/17at 19:37; Start 05/19/17 at 21:00 Gabapentin (Neurontin) 600 mg QID PO Last administered on 05/20/17at 17:21; Start 05/19/17 at 21:00; Stop 05/20/17 at 19:25; Status DC Multivitamins/ Calcium (Thera-M Plus) 1 tab DAILY PO Last administered on at 07:59; Start 05/20/17 at 09:00; Stop 05/21/17 at 14:59; Status DC Fish Oil (Fish Oil) 1,000 mg QHS PO Last administered on 06/27/17at 19:37; Start 05/19/17 at 21:00 Ondansetron HCl (Zofran Odt) 4 mg PRN Q6HRS PRN PO NAUSEA; Start 05/19/17 at 19 :00 Non-Formulary Medication 1 drop QID EACHEYE ; Start 05/19/17 at 21:00; Stop at 21:00; Status DC Artificial Tears (Artificial Tears) 1 drop PRN QID PRN OU DRY EYE; Start at 19:00; Stop 05/20/17 at 14:59; Status DC Lidocaine HCl (Xylocaine 2% Topical 5gm Tube) 1 missael PRN Q4HRS PRN TP PAIN; Start 05/19/17 at 20:15; Stop 05/20/17 at 14:59; Status DC Lidocaine HCl (Xylocaine 2% Topical 5gm Tube) 1 missael PRN Q4HRS PRN TP PAIN Last administered on 05/23/17at 05:41; Start 05/20/17 at 14:59 Artificial Tears (Artificial Tears) 1 drop PRN QID PRN OU DRY EYE Last administered on 05/29/17at 08:44; Start 05/20/17 at 14:59 Gabapentin (Neurontin) 600 mg TID PO Last administered on 06/01/17at 19:24; Start 05/20/17 at 21:00; Stop 06/01/17 at 23:00; Status DC Duloxetine HCl (Cymbalta) 30 mg DAILY PO Last administered on 06/03/17at 07:42; Start 05/21/17 at 09:00; Stop 06/03/17 at 18:33; Status DC Lamotrigine (LaMICtal) 150 mg DAILY PO Last administered on 05/29/17at 08:40; Start 05/21/17 at 09:00; Stop 05/29/17 at 17:46; Status DC Lamotrigine (LaMICtal) 200 mg HS PO Last administered on 05/28/17at 19:45; Start 05/20/17 at 21:00; Stop 05/29/17 at 17:46; Status DC Prenat Multivit/ Signal Supervisor/Iron/Folic Ac (Multivitamin ) 1 tab DAILYBFRSUP PO Last administered on 06/28/17at 14:08; Start 05/21/17 at 17:00 Fosfomycin Tromethamine (Monurol) 3 gm 1X ONCE PO Last administered on at 15:00; Start 05/21/17 at 15:00; Stop 05/21/17 at 15:01; Status DC Quetiapine Fumarate (SEROquel) 300 mg QHS PO Last administered on 05/25/17at 20: 28; Start 05/23/17 at 21:00; Stop 05/26/17 at 17:47; Status DC Nystatin (Nystop) 15 missael STK-MED ONCE TP Last administered on 05/24/17at 17:40; Start 05/24/17 at 17:40; Stop 05/24/17 at 17:41; Status DC Sodium Chloride (Saline Mist Nasal) 1 missael PRN Q1HR PRN NS NASAL CONGESTION Last administered on 05/27/17at 20:38; Start 05/25/17 at 09:15 Quetiapine Fumarate (SEROquel) 200 mg QHS PO Last administered on 06/04/17at 20: 24; Start 05/26/17 at 21:00; Stop 06/05/17 at 17:39; Status DC Ketorolac Tromethamine (Acular) 1 drop Q8HRS OD Last administered on 06/03/17at 06:23; Start 05/29/17 at 14:00; Stop 06/03/17 at 13:59; Status DC Lamotrigine (LaMICtal) 200 mg BID PO Last administered on 06/03/17at 07:42; Start 05/29/17 at 21:00; Stop 06/03/17 at 18:33; Status DC Clonazepam (KlonoPIN) 1 mg DAILY PO Last administered on 06/01/17at 08:07; Start 05/30/17 at 09:00; Stop 06/01/17 at 12:25; Status DC Clonazepam (KlonoPIN) 0.75 mg QHS PO Last administered on 06/07/17at 19:56; Start 05/29/17 at 21:00; Stop 06/08/17 at 21:00; Status DC Donepezil HCl (Aricept) 10 mg QHS PO Last administered on 06/06/17at 20:22; Start 05/31/17 at 21:00; Stop 06/07/17 at 18:46; Status DC Clonazepam (KlonoPIN) 0.75 mg DAILY PO Last administered on 06/04/17at 07:52; Start 06/02/17 at 09:00; Stop 06/04/17 at 09:01; Status DC Clonazepam (KlonoPIN) 0.5 mg DAILY PO Last administered on 06/13/17 08:01; Start 06/05/17 at 09:00; Stop 06/13/17 at 09:01; Status DC Clonazepam (KlonoPIN) 0.5 mg HS PO Last administered on 06/10/17at 20:35; Start 06/08/17 at 21:00; Stop 06/10/17 at 21:01; Status DC Ciprofloxacin (Cipro) 250 mg BID PO Last administered on 06/06/17at 08:20; Start 06/01/17 at 21:00; Stop 06/06/17 at 20:59; Status DC Gabapentin (Neurontin) 300 mg QID PO Last administered on 06/05/17at 19:42; Start 06/02/17 at 04:00; Stop 06/05/17 at 23:00; Status DC Gabapentin (Neurontin) 300 mg TID PO Last administered on 06/08/17at 20:23; Start 06/06/17 at 04:00; Stop 06/08/17 at 23:00; Status DC Gabapentin (Neurontin) 300 mg BID PO ; Start 06/09/17 at 04:00; Stop 06/09/17 at 04:00; Status DC Lactobacillus Rhamnosus (Culturelle) 1 cap BID PO Last administered on at 19:45; Start 06/02/17 at 21:00; Stop 06/24/17 at 07:51; Status DC Nystatin (Mycostatin) 1 missael BID TP ; Start 06/02/17 at 21:00; Stop 06/02/17 at 21: 07; Status DC Nystatin (Mycostatin) 1 missael BID TP ; Start 06/02/17 at 21:00; Stop 06/03/17 at 07 :47; Status DC Nystatin (Nystop) 1 missael BID TP Last administered on 06/28/17at 08:41; Start 06/03 at 09:00 Lamotrigine (LaMICtal) 150 mg HS PO Last administered on 06/05/17at 19:40; Start 06/03/17 at 21:00; Stop 06/06/17 at 00:00; Status DC Duloxetine HCl (Cymbalta) 60 mg DAILY PO Last administered on 06/07/17at 09:02; Start 06/04/17 at 09:00; Stop 06/07/17 at 18:46; Status DC Lamotrigine (LaMICtal) 100 mg DAILY PO Last administered on 06/04/17at 07:54; Start 06/04/17 at 09:00; Stop 06/04/17 at 09:50; Status DC Lamotrigine (LaMICtal) 200 mg DAILY PO Last administered on 06/28/17at 08:39; Start 06/05/17 at 09:00 Lamotrigine (LaMICtal) 200 mg HS PO Last administered on 06/27/17at 19:37; Start 06/06/17 at 21:00 Lamotrigine (LaMICtal) 100 mg 1X ONCE PO Last administered on 06/04/17at 10:00 ; Start 06/04/17 at 10:00; Stop 06/04/17 at 10:01; Status DC Quetiapine Fumarate (SEROquel) 250 mg QHS PO Last administered on 06/21/17at 20: 33; Start 06/05/17 at 21:00; Stop 06/22/17 at 19:07; Status DC Duloxetine HCl (Cymbalta) 30 mg DAILY PO Last administered on 06/10/17at 07:58; Start 06/08/17 at 09:00; Stop 06/11/17 at 08:59; Status DC Gabapentin (Neurontin) 300 mg BID PO Last administered on 06/14/17at 09:08; Start 06/10/17 at 09:00; Stop 06/14/17 at 18:36; Status DC Olanzapine (ZyPREXA ZYDIS) 2.5 mg PRN Q2HR PRN PO PSYCHOSIS Last administered on 06/28/17at 06:01; Start 06/09/17 at 18:45 Clonazepam (KlonoPIN) 0.25 mg DAILY PO Last administered on 06/16/17at 08:57; Start 06/14/17 at 09:00; Stop 06/16/17 at 09:00; Status DC Clonazepam (KlonoPIN) 0.5 mg HS PO Last administered on 06/16/17at 19:38; Start 06/13/17 at 21:00; Stop 06/16/17 at 21:00; Status DC Clonazepam (KlonoPIN) 0.25 mg BID PO Last administered on 06/20/17at 19:26; Start 06/17/17 at 09:00; Stop 06/21/17 at 08:59; Status DC Gabapentin (Neurontin) 300 mg DAILY PO Last administered on 06/17/17at 08:22; Start 06/15/17 at 09:00; Stop 06/18/17 at 08:59; Status DC Clonazepam (KlonoPIN) 0.25 mg DAILY PO Last administered on 06/23/17at 09:34; Start 06/21/17 at 09:00; Stop 06/24/17 at 08:59; Status DC Quetiapine Fumarate (SEROquel) 200 mg QHS PO Last administered on 06/27/17at 19: 37; Start 06/22/17 at 21:00 Quetiapine Fumarate (SEROquel) 25 mg 0900,1300 PO Last administered on at 12:08; Start 06/23/17 at 09:00; Stop 06/27/17 at 18:26; Status DC Quetiapine Fumarate (SEROquel) 25 mg DAILY@1300 PO Last administered on at 14:08; Start 06/28/17 at 13:00 Quetiapine Fumarate (SEROquel) 50 mg DAILY PO Last administered on 06/28/17at 08: 40; Start 06/28/17 at 09:00 Active Scripts Active Reported Lamotrigine 200 Mg Tablet 200 Mg PO HS Lamotrigine 200 Mg Tablet 200 Mg PO DAILY Seroquel (Quetiapine Fumarate) 50 Mg Tablet 50 Mg PO DAILY Seroquel (Quetiapine Fumarate) 25 Mg Tablet 25 Mg PO DAILY@1300 Seroquel (Quetiapine Fumarate) 200 Mg Tablet 200 Mg PO QHS Multi Tablet (Pnv No.122/Iron/Folic Acid) 1 Each Tablet 1 Tab PO DAILYBFRSUP Vitamins ( Vits W-Ca,Fe,Fa(<1MG)) 1 Each Tablet 1 Tab PO DAILYBFRSUP Polyvinyl Alcohol 15 Ml Drops 1 Drop OU Kent 3 1,000 Mg Softgel (Kent-3 Fatty Acids/Fish Oil) 1 Each Capsule 1 Cap PO QHS Zyprexa Zydis (Olanzapine) 5 Mg Tab.rapdis 5 Mg PO PRN Q2HR PRN Nystatin 15 Gm Powder 15 Gm TP BID Analgesic [place] (Methyl Salicylate/Menthol) 28 Gm Oint...g. 1 Missael TP PRN QID PRN Milk Of Magnesia (Magnesium Hydroxide) 400 Mg/5 Ml Oral.susp 2,400 Mg PO PRN QHS PRN Mag-Al Plus Xs Suspension (Mag Hydrox/Al Hydrox/Simeth) 30 Ml Oral.susp 15 Ml PO PRN AFTMEALHC PRN Lidocaine 5 Gm Cream..g. 1 Missael TP PRN Q4HRS PRN Vitamin D3 (Cholecalciferol (Vitamin D3)) 1,000 Unit Tablet 3,000 Unit PO QHS Systane 0.3-0.4% Eye Drops (Propylene Glycol/Peg 400) 15 Ml Drops 1 Drop EACHEYE QID Systane 0.3-0.4% Eye Drops (Propylene Glycol/Peg 400) 15 Ml Drops 1 Drop EACHEYE QIDPRN PRN Pain Reliever Plus Tablet (Aspirin/Acetaminophen/Caffeine) 1 Each Tablet 2 Each PO PRN PRN Ondansetron Hcl 4 Mg Tablet 4 Mg PO PRN Q6HRS PRN Nystatin 100,000 Unit/1 Ml Oral.susp 100,000 Unit PO Nystatin 15 Gm Cream..g. 1 Missael TP PRN BID PRN Miralax (Polyethylene Glycol 3350) 17 Gm Powd.pack 17 Gm PO HS Lidocaine Hcl 5 Ml Jel..ml. 5 Ml TOP PRN Q4HRS Ketoconazole 120 Ml Shampoo 1 Missael TP TWICE WEEKLY Ibuprofen 100 Mg/5 Ml Oral.susp 200 Mg PO PRN TID PRN Hydroxyzine Hcl 25 Mg Tablet 25 Mg PO PRN Q4HRS PRN Hydrocortisone 453.6 Gm Oint...g. 1 Missael TP PRN BID PRN Epa-Dha 720 Softgel (Kent-3/Dha/Epa/Fish Oil) 1 Each Capsule 1 Each PO QHS Donepezil Hcl 5 Mg Tablet 5 Mg PO QHS Saline Nasal Garnett (Sodium Chloride) 30 Ml Garnett 1 Spr NS PRN PRN Tylenol (Acetaminophen) 325 Mg Tablet 650 Mg PO PRN Q4HRS PRN Seroquel (Quetiapine Fumarate) 400 Mg Tablet 400 Mg PO HS Mirtazapine 15 Mg Tablet 15 Mg PO QHS Lamotrigine 150 Mg Tablet 150 Mg PO BID Fluticasone Propionate Nasal Garnett (Fluticasone Propionate) 16 Gm Garnett.susp 2 Garnett NS PRN BID PRN Effexor Xr (Venlafaxine Hcl) 150 Mg Cap.er.24h 150 Mg PO DAILY Multi Vitamin Daily (Multivitamin) 1 Each Tablet 1 Each PO DAILY Mucinex (Guaifenesin) 600 Mg Tablet.er 600 Mg PO PRN BID PRN Namenda (Memantine Hcl) 10 Mg Tablet 5 Mg PO DAILY Gabapentin 600 Mg Tablet 600 Mg PO QID Gabapentin 100 Mg Capsule 100 Mg PO PRN Q6HRS Clonazepam 1 Mg Tablet 1 Mg PO BID I have reviewed the current psychotropics carefully including drug interactions. Risk benefit ratio favors no change other than as noted in my dictated progress note. Diagnosis: Problems: (1) Major depression (2) Anxiety (3) Bipolar affective disorder, mixed (4) Anxiety disorder (5) Major depressive disorder, recurrent episode (6) Impulse control disorder BRIAN CHAPA MD Jun 28, 2017 20:03
[2017-06-28] MEDS: OMEGA-3 FATTY ACIDS/FISH OIL 1,000 MG CAPSULE. PO SCH (20:34)
[2017-06-28] MEDS: QUEtiapine 100 MG TABLET. PO SCH (20:34)
[2017-06-28] MEDS: CHOLECALCIFEROL (VITAMIN D3) 1,000 UNIT TABLET PO SCH (20:34)
[2017-06-28] MEDS: POLYETHYLENE GLYCOL 3350 17 GM PACKET. PO SCH (20:34)
--- NOTE | 2017-06-28 20:40 | PN ---
DATE: 06/27/2017 This is a late entry for 06/27/2017, covers elements not covered in my initial note 06/27/2017. SUBJECTIVE: I met with the patient the evening of 06/27/2017. The patient has appeared more disorganized, pulled off her pants, defecated on the floor and the chair near the nursing station. REVIEW OF SYSTEMS: Ambulation impaired with walker. No CV, , pulmonary, eye, ENT system symptoms on review. Vague somatic symptoms. Reliability poor. MENTAL STATUS EXAMINATION: Oriented to herself, situation. Speech moderate latency, coherent. I met with her earlier in the evening, then she wanted me to come back later in the evening, quite anxious, restless, wanting help ambulating with a walker, wanted my assistance even though there were two nursing staff assisting her. Abstraction fair, computation impaired, language function intact. Mood and affect labile. LABORATORY DATA: Reviewed. IMPRESSION: Bipolar 1 disorder, mixed versus depressed, in partial remission; cognitive disorder, unspecified versus major neurocognitive disorder with delusion, depression. PLAN: Continue current psychotropics, increase Seroquel to 50 mg at 9:00 a.m., and continue 25 mg at 1300 hours, 200 mg at bedtime. On the morning of 06/28/2017, I have discussed with Belen, social service staff. On the SLUMS, she scored 7 indicative of significant cognitive dysfunction. She may be more appropriate in the longterm facility rather than level 2 facility. BRIAN CHAPA MD DR: [email or web address]/[email or web address] JOB#: [id number] / [id number]
[2017-06-29] MEDS: NYSTATIN TOPICAL POWDER 15GM BOTTLE. TP SCH ×3 (06:18→20:00)
[2017-06-29 06:20] VITALS: BP 152/78
[2017-06-29] MEDS: QUEtiapine 50 MG TABLET. PO SCH (08:14)
[2017-06-29] MEDS: lamoTRIgine 100 MG TABLET. PO SCH ×2 (08:15→19:58)
[2017-06-29 10:23] VITALS: BP 116/66
[2017-06-29] MEDS: METOPROLOL TART IMMED RELEASE 25 MG TABLET PO SCH ×2 (10:24→19:59)
[2017-06-29] MEDS: QUEtiapine 25 MG TABLET. PO SCH (14:07)
[2017-06-29 16:23] VITALS: BP 115/65
[2017-06-29] MEDS: PRENATAL MULTIVITAMIN TABLET. PO SCH (17:40)
[2017-06-29] MEDS: CHOLECALCIFEROL (VITAMIN D3) 1,000 UNIT TABLET PO SCH (19:58)
[2017-06-29] MEDS: QUEtiapine 100 MG TABLET. PO SCH (19:58)
[2017-06-29] MEDS: OMEGA-3 FATTY ACIDS/FISH OIL 1,000 MG CAPSULE. PO SCH (19:59)
[2017-06-29] MEDS: POLYETHYLENE GLYCOL 3350 17 GM PACKET. PO SCH (19:59)
--- NOTE | 2017-06-29 20:09 | PDOC ---
Exam Note: Greg Note: Please also refer to the separate dictated note~for this date of service dictated separately.~Patient seen individually. Discussed the patient with Nursing staff reviewed the chart.~Reviewed interim history and current functioning. Reviewed vital signs,~Labs/ Radiology~and current medications noted below. Continue current treatment with the changes noted in the dictated addendum note Assessment: Vital Signs: Vital Signs Date Time Temp Pulse Resp B/P (MAP) Pulse Ox O2 Delivery O2 Flow Rate FiO2 06/29/17 19:59 102 115/65 06/29/17 16:23 98.0 20 94 06/24/17 16:45 Room Air I&O Intake and Output 06/29/17 07:00 Intake Total 960 ml Balance 960 ml Intake Oral 960 ml # Voids 1 Current Medications: Meds: Current Medications Acetaminophen (Tylenol) 650 mg PRN Q6HRS PRN PO PAIN / TEMP; Start 05/19/17 at 16:15; Stop 05/19/17 at 18:42; Status DC Multi-Ingredient Ointment (Analgesic [place]) 1 missael PRN QID PRN TP MUSCLE PAIN Last administered on 06/20/17at 09:44; Start 05/19/17 at 16:15 Al Hydroxide/Mg Hydroxide (Mylanta Plus Xs) 15 ml PRN AFTMEALHC PRN PO DYSPEPSIA Last administered on 05/26/17at 20:02; Start 05/19/17 at 16:15 Magnesium Hydroxide (Milk Of Magnesia) 2,400 mg PRN QHS PRN PO CONSTIPATION Last administered on 06/25/17at 05:58; Start 05/19/17 at 16:15 Clonazepam (KlonoPIN) 1 mg BID PO Last administered on 05/29/17at 08:45; Start at 21:00; Stop 05/29/17 at 17:47; Status DC Donepezil HCl (Aricept) 5 mg QHS PO Last administered on 05/30/17at 20:24; Start 05/19/17 at 21:00; Stop 05/31/17 at 18:41; Status DC Lamotrigine (LaMICtal) 150 mg BID PO Last administered on 05/20/17at 20:17; Start 05/19/17 at 21:00; Stop 05/20/17 at 20:37; Status DC Memantine (Namenda) 5 mg DAILY PO Last administered on 06/07/17at 09:02; Start 05/20/17 at 09:00; Stop 06/07/17 at 18:46; Status DC Mirtazapine (Remeron) 15 mg QHS PO Last administered on 06/06/17at 20:36; Start 05/19/17 at 21:00; Stop 06/07/17 at 18:46; Status DC Quetiapine Fumarate (SEROquel) 400 mg QHS PO Last administered on 05/22/17at 19: 57; Start 05/19/17 at 21:00; Stop 05/23/17 at 18:44; Status DC Venlafaxine HCl (Effexor) 50 mg TID PO Last administered on 05/20/17at 14:00; Start 05/19/17 at 21:00; Stop 05/20/17 at 19:25; Status DC Acetaminophen (Tylenol) 650 mg PRN Q4HRS PRN PO PAIN Last administered on at 19:43; Start 05/19/17 at 18:15 Vitamin D (Vitamin D3) 3,000 unit QHS PO Last administered on 06/29/17at 19:58; Start 05/19/17 at 21:00 Fluticasone Propionate (Flonase) 2 spray PRN BID PRN NS ALLERGIES; Start at 18:15 Gabapentin (Neurontin) 100 mg PRN Q6HRS PRN PO ANXIETY; Start 05/19/17 at 18:15 ; Stop 05/20/17 at 19:25; Status DC Guaifenesin (Mucinex Er) 600 mg PRN BID PRN PO coughing; Start 05/19/17 at 18: 15 Ketoconazole (Nizoral 2% Shampoo) 1 missael QMONFR TP Last administered on at 14:11; Start 05/26/17 at 16:00 Lidocaine HCl (Uro-Jet) 5 missael PRN Q4HRS PRN TP PAIN; Start 05/19/17 at 18:15; Stop 05/19/17 at 20:05; Status DC Nystatin (Mycostatin) 1 missael PRN BID PRN TP itching; Start 05/19/17 at 18:15; Stop 06/02/17 at 11:13; Status DC Polyethylene Glycol (miraLAX) 17 gm HS PO Last administered on 06/29/17 19:59; Start 05/19/17 at 21:00 Gabapentin (Neurontin) 600 mg QID PO Last administered on 05/20/17at 17:21; Start 05/19/17 at 21:00; Stop 05/20/17 at 19:25; Status DC Multivitamins/ Calcium (Thera-M Plus) 1 tab DAILY PO Last administered on at 07:59; Start 05/20/17 at 09:00; Stop 05/21/17 at 14:59; Status DC Fish Oil (Fish Oil) 1,000 mg QHS PO Last administered on 06/29/17 19:59; Start 05/19/17 at 21:00 Ondansetron HCl (Zofran Odt) 4 mg PRN Q6HRS PRN PO NAUSEA; Start 05/19/17 at 19 :00 Non-Formulary Medication 1 drop QID EACHEYE ; Start 05/19/17 at 21:00; Stop at 21:00; Status DC Artificial Tears (Artificial Tears) 1 drop PRN QID PRN OU DRY EYE; Start at 19:00; Stop 05/20/17 at 14:59; Status DC Lidocaine HCl (Xylocaine 2% Topical 5gm Tube) 1 missael PRN Q4HRS PRN TP PAIN; Start 05/19/17 at 20:15; Stop 05/20/17 at 14:59; Status DC Lidocaine HCl (Xylocaine 2% Topical 5gm Tube) 1 missael PRN Q4HRS PRN TP PAIN Last administered on 05/23/17at 05:41; Start 05/20/17 at 14:59 Artificial Tears (Artificial Tears) 1 drop PRN QID PRN OU DRY EYE Last administered on 05/29/17at 08:44; Start 05/20/17 at 14:59 Gabapentin (Neurontin) 600 mg TID PO Last administered on 06/01/17 19:24; Start 05/20/17 at 21:00; Stop 06/01/17 at 23:00; Status DC Duloxetine HCl (Cymbalta) 30 mg DAILY PO Last administered on 06/03/17 07:42; Start 05/21/17 at 09:00; Stop 06/03/17 at 18:33; Status DC Lamotrigine (LaMICtal) 150 mg DAILY PO Last administered on 05/29/17 08:40; Start 05/21/17 at 09:00; Stop 05/29/17 at 17:46; Status DC Lamotrigine (LaMICtal) 200 mg HS PO Last administered on 05/28/17 19:45; Start 05/20/17 at 21:00; Stop 05/29/17 at 17:46; Status DC Prenat Multivit/ [place]/Iron/Folic Ac (Multivitamin ) 1 tab DAILYBFRSUP PO Last administered on 06/29/17 17:40; Start 05/21/17 at 17:00 Fosfomycin Tromethamine (Monurol) 3 gm 1X ONCE PO Last administered on 15:00; Start 05/21/17 at 15:00; Stop 05/21/17 at 15:01; Status DC Quetiapine Fumarate (SEROquel) 300 mg QHS PO Last administered on 05/25/17 20: 28; Start 05/23/17 at 21:00; Stop 05/26/17 at 17:47; Status DC Nystatin (Nystop) 15 missael STK-MED ONCE TP Last administered on 05/24/17at 17:40; Start 05/24/17 at 17:40; Stop 05/24/17 at 17:41; Status DC Sodium Chloride (Saline Mist Nasal) 1 missael PRN Q1HR PRN NS NASAL CONGESTION Last administered on 05/27/17 20:38; Start 05/25/17 at 09:15 Quetiapine Fumarate (SEROquel) 200 mg QHS PO Last administered on 06/04/17 20: 24; Start 05/26/17 at 21:00; Stop 06/05/17 at 17:39; Status DC Ketorolac Tromethamine (Acular) 1 drop Q8HRS OD Last administered on 06/03/17 06:23; Start 05/29/17 at 14:00; Stop 06/03/17 at 13:59; Status DC Lamotrigine (LaMICtal) 200 mg BID PO Last administered on 2/10/18at 07:42; Start 05/29/17 at 21:00; Stop 06/03/17 at 18:33; Status DC Clonazepam (KlonoPIN) 1 mg DAILY PO Last administered on 06/01/17at 08:07; Start 05/30/17 at 09:00; Stop 06/01/17 at 12:25; Status DC Clonazepam (KlonoPIN) 0.75 mg QHS PO Last administered on 06/07/17at 19:56; Start 05/29/17 at 21:00; Stop 06/08/17 at 21:00; Status DC Donepezil HCl (Aricept) 10 mg QHS PO Last administered on 06/06/17at 20:22; Start 05/31/17 at 21:00; Stop 06/07/17 at 18:46; Status DC Clonazepam (KlonoPIN) 0.75 mg DAILY PO Last administered on 06/04/17at 07:52; Start 06/02/17 at 09:00; Stop 06/04/17 at 09:01; Status DC Clonazepam (KlonoPIN) 0.5 mg DAILY PO Last administered on 06/13/17at 08:01; Start 06/05/17 at 09:00; Stop 06/13/17 at 09:01; Status DC Clonazepam (KlonoPIN) 0.5 mg HS PO Last administered on 06/10/17at 20:35; Start 06/08/17 at 21:00; Stop 06/10/17 at 21:01; Status DC Ciprofloxacin (Cipro) 250 mg BID PO Last administered on 06/06/17at 08:20; Start 06/01/17 at 21:00; Stop 06/06/17 at 20:59; Status DC Gabapentin (Neurontin) 300 mg QID PO Last administered on 06/05/17at 19:42; Start 06/02/17 at 04:00; Stop 06/05/17 at 23:00; Status DC Gabapentin (Neurontin) 300 mg TID PO Last administered on 06/08/17at 20:23; Start 06/06/17 at 04:00; Stop 06/08/17 at 23:00; Status DC Gabapentin (Neurontin) 300 mg BID PO ; Start 06/09/17 at 04:00; Stop 06/09/17 at 04:00; Status DC Lactobacillus Rhamnosus (Culturelle) 1 cap BID PO Last administered on at 19:45; Start 06/02/17 at 21:00; Stop 06/24/17 at 07:51; Status DC Nystatin (Mycostatin) 1 missael BID TP ; Start 06/02/17 at 21:00; Stop 06/02/17 at 21: 07; Status DC Nystatin (Mycostatin) 1 missael BID TP ; Start 06/02/17 at 21:00; Stop 06/03/17 at 07 :47; Status DC Nystatin (Nystop) 1 missael BID TP Last administered on 06/29/17at 20:00; Start 06/03 at 09:00 Lamotrigine (LaMICtal) 150 mg HS PO Last administered on 06/05/17at 19:40; Start 06/03/17 at 21:00; Stop 06/06/17 at 00:00; Status DC Duloxetine HCl (Cymbalta) 60 mg DAILY PO Last administered on 06/07/17at 09:02; Start 06/04/17 at 09:00; Stop 06/07/17 at 18:46; Status DC Lamotrigine (LaMICtal) 100 mg DAILY PO Last administered on 06/04/17at 07:54; Start 06/04/17 at 09:00; Stop 06/04/17 at 09:50; Status DC Lamotrigine (LaMICtal) 200 mg DAILY PO Last administered on 06/29/17at 08:15; Start 06/05/17 at 09:00 Lamotrigine (LaMICtal) 200 mg HS PO Last administered on 06/29/17at 19:58; Start 06/06/17 at 21:00 Lamotrigine (LaMICtal) 100 mg 1X ONCE PO Last administered on 06/04/17at 10:00 ; Start 06/04/17 at 10:00; Stop 06/04/17 at 10:01; Status DC Quetiapine Fumarate (SEROquel) 250 mg QHS PO Last administered on 06/21/17at 20: 33; Start 06/05/17 at 21:00; Stop 06/22/17 at 19:07; Status DC Duloxetine HCl (Cymbalta) 30 mg DAILY PO Last administered on 06/10/17 07:58; Start 06/08/17 at 09:00; Stop 06/11/17 at 08:59; Status DC Gabapentin (Neurontin) 300 mg BID PO Last administered on 06/14/17at 09:08; Start 06/10/17 at 09:00; Stop 06/14/17 at 18:36; Status DC Olanzapine (ZyPREXA ZYDIS) 2.5 mg PRN Q2HR PRN PO PSYCHOSIS Last administered on 06/29/17 05:34; Start 06/09/17 at 18:45 Clonazepam (KlonoPIN) 0.25 mg DAILY PO Last administered on 06/16/17 08:57; Start 06/14/17 at 09:00; Stop 06/16/17 at 09:00; Status DC Clonazepam (KlonoPIN) 0.5 mg HS PO Last administered on 06/16/17at 19:38; Start 06/13/17 at 21:00; Stop 06/16/17 at 21:00; Status DC Clonazepam (KlonoPIN) 0.25 mg BID PO Last administered on 06/20/17at 19:26; Start 06/17/17 at 09:00; Stop 06/21/17 at 08:59; Status DC Gabapentin (Neurontin) 300 mg DAILY PO Last administered on 06/17/17 08:22; Start 06/15/17 at 09:00; Stop 06/18/17 at 08:59; Status DC Clonazepam (KlonoPIN) 0.25 mg DAILY PO Last administered on 06/23/17 09:34; Start 06/21/17 at 09:00; Stop 06/24/17 at 08:59; Status DC Quetiapine Fumarate (SEROquel) 200 mg QHS PO Last administered on 06/29/17 19: 58; Start 06/22/17 at 21:00 Quetiapine Fumarate (SEROquel) 25 mg 0900,1300 PO Last administered on at 12:08; Start 06/23/17 at 09:00; Stop 06/27/17 at 18:26; Status DC Quetiapine Fumarate (SEROquel) 25 mg DAILY@1300 PO Last administered on at 14:07; Start 06/28/17 at 13:00 Quetiapine Fumarate (SEROquel) 50 mg DAILY PO Last administered on 06/29/17at 08: 14; Start 06/28/17 at 09:00 Metoprolol Tartrate (Lopressor) 12.5 mg BID PO Last administered on 06/29/17at 19 :59; Start 06/29/17 at 10:15 Active Scripts Active Reported Lamotrigine 200 Mg Tablet 200 Mg PO HS Lamotrigine 200 Mg Tablet 200 Mg PO DAILY Seroquel (Quetiapine Fumarate) 50 Mg Tablet 50 Mg PO DAILY Seroquel (Quetiapine Fumarate) 25 Mg Tablet 25 Mg PO DAILY@1300 Seroquel (Quetiapine Fumarate) 200 Mg Tablet 200 Mg PO QHS Multi Tablet (Pnv No.122/Iron/Folic Acid) 1 Each Tablet 1 Tab PO DAILYBFRSUP Vitamins ( Vits W-Ca,Fe,Fa(<1MG)) 1 Each Tablet 1 Tab PO DAILYBFRSUP Polyvinyl Alcohol 15 Ml Drops 1 Drop OU [place] 3 1,000 Mg Softgel ([place]-3 Fatty Acids/Fish Oil) 1 Each Capsule 1 Cap PO QHS Zyprexa Zydis (Olanzapine) 5 Mg Tab.rapdis 5 Mg PO PRN Q2HR PRN Nystatin 15 Gm Powder 15 Gm TP BID Analgesic [place] (Methyl Salicylate/Menthol) 28 Gm Oint...g. 1 Missael TP PRN QID PRN Milk Of Magnesia (Magnesium Hydroxide) 400 Mg/5 Ml Oral.susp 2,400 Mg PO PRN QHS PRN Mag-Al Plus Xs Suspension (Mag Hydrox/Al Hydrox/Simeth) 30 Ml Oral.susp 15 Ml PO PRN AFTMEALHC PRN Lidocaine 5 Gm Cream..g. 1 Missael TP PRN Q4HRS PRN Vitamin D3 (Cholecalciferol (Vitamin D3)) 1,000 Unit Tablet 3,000 Unit PO QHS Systane 0.3-0.4% Eye Drops (Propylene Glycol/Peg 400) 15 Ml Drops 1 Drop EACHEYE QID Systane 0.3-0.4% Eye Drops (Propylene Glycol/Peg 400) 15 Ml Drops 1 Drop EACHEYE QIDPRN PRN Pain Reliever Plus Tablet (Aspirin/Acetaminophen/Caffeine) 1 Each Tablet 2 Each PO PRN PRN Ondansetron Hcl 4 Mg Tablet 4 Mg PO PRN Q6HRS PRN Nystatin 100,000 Unit/1 Ml Oral.susp 100,000 Unit PO Nystatin 15 Gm Cream..g. 1 Missael TP PRN BID PRN Miralax (Polyethylene Glycol 3350) 17 Gm Powd.pack 17 Gm PO HS Lidocaine Hcl 5 Ml Jel..ml. 5 Ml TOP PRN Q4HRS Ketoconazole 120 Ml Shampoo 1 Missael TP TWICE WEEKLY Ibuprofen 100 Mg/5 Ml Oral.susp 200 Mg PO PRN TID PRN Hydroxyzine Hcl 25 Mg Tablet 25 Mg PO PRN Q4HRS PRN Hydrocortisone 453.6 Gm Oint...g. 1 Missael TP PRN BID PRN Epa-Dha 720 Softgel ([place]-3/Dha/Epa/Fish Oil) 1 Each Capsule 1 Each PO QHS Donepezil Hcl 5 Mg Tablet 5 Mg PO QHS Saline Nasal [place] (Sodium Chloride) 30 Ml [place] 1 Spr NS PRN PRN Tylenol (Acetaminophen) 325 Mg Tablet 650 Mg PO PRN Q4HRS PRN Seroquel (Quetiapine Fumarate) 400 Mg Tablet 400 Mg PO HS Mirtazapine 15 Mg Tablet 15 Mg PO QHS Lamotrigine 150 Mg Tablet 150 Mg PO BID Fluticasone Propionate Nasal [place] (Fluticasone Propionate) 16 Gm [place].susp 2 [place] NS PRN BID PRN Effexor Xr (Venlafaxine Hcl) 150 Mg Cap.er.24h 150 Mg PO DAILY Multi Vitamin Daily (Multivitamin) 1 Each Tablet 1 Each PO DAILY Mucinex (Guaifenesin) 600 Mg Tablet.er 600 Mg PO PRN BID PRN Namenda (Memantine Hcl) 10 Mg Tablet 5 Mg PO DAILY Gabapentin 600 Mg Tablet 600 Mg PO QID Gabapentin 100 Mg Capsule 100 Mg PO PRN Q6HRS Clonazepam 1 Mg Tablet 1 Mg PO BID I have reviewed the current psychotropics carefully including drug interactions. Risk benefit ratio favors no change other than as noted in my dictated progress note. Diagnosis: Problems: (1) Major depression (2) Anxiety (3) Bipolar affective disorder, mixed (4) Anxiety disorder (5) Major depressive disorder, recurrent episode (6) Impulse control disorder BRIAN CHAPA MD Jun 29, 2017 20:09
[2017-06-30 06:24] VITALS: BP 109/56
[2017-06-30] MEDS: lamoTRIgine 100 MG TABLET. PO SCH ×2 (07:52→19:46)
[2017-06-30] MEDS: QUEtiapine 50 MG TABLET. PO SCH (07:53)
[2017-06-30] MEDS: NYSTATIN TOPICAL POWDER 15GM BOTTLE. TP SCH ×2 (07:53→19:47)
[2017-06-30] MEDS: METOPROLOL TART IMMED RELEASE 25 MG TABLET PO SCH ×2 (07:53→19:46)
[2017-06-30] MEDS: KETOCONAZOLE 2% SHAMPOO 120ML BOTTLE. TP SCH (09:00)
[2017-06-30] MEDS: PRENATAL MULTIVITAMIN TABLET. PO SCH (13:00)
[2017-06-30] MEDS: QUEtiapine 25 MG TABLET. PO SCH (13:01)
[2017-06-30 16:39] VITALS: BP 131/73
[2017-06-30] MEDS: OMEGA-3 FATTY ACIDS/FISH OIL 1,000 MG CAPSULE. PO SCH (19:45)
[2017-06-30] MEDS: POLYETHYLENE GLYCOL 3350 17 GM PACKET. PO SCH (19:46)
[2017-06-30] MEDS: QUEtiapine 100 MG TABLET. PO SCH (19:47)
[2017-06-30] MEDS: CHOLECALCIFEROL (VITAMIN D3) 1,000 UNIT TABLET PO SCH (19:47)
--- NOTE | 2017-06-30 20:04 | PDOC ---
Exam Note: Greg Note: Please also refer to the separate dictated note~for this date of service dictated separately.~Patient seen individually. Discussed the patient with Nursing staff reviewed the chart.~Reviewed interim history and current functioning. Reviewed vital signs,~Labs/ Radiology~and current medications noted below. Continue current treatment with the changes noted in the dictated addendum note Assessment: Vital Signs: Vital Signs Date Time Temp Pulse Resp B/P (MAP) Pulse Ox O2 Delivery O2 Flow Rate FiO2 06/30/17 19:46 101 131/73 06/30/17 16:39 97.1 18 96 06/24/17 16:45 Room Air I&O Intake and Output 06/30/17 07:00 Intake Total 1740 ml Balance 1740 ml Intake Oral 1740 ml # Voids 1 # Bowel Movements 1 Current Medications: Meds: Current Medications Acetaminophen (Tylenol) 650 mg PRN Q6HRS PRN PO PAIN / TEMP; Start 05/19/17 at 16:15; Stop 05/19/17 at 18:42; Status DC Multi-Ingredient Ointment (Analgesic [place]) 1 missael PRN QID PRN TP MUSCLE PAIN Last administered on 06/20/17at 09:44; Start 05/19/17 at 16:15 Al Hydroxide/Mg Hydroxide (Mylanta Plus Xs) 15 ml PRN AFTMEALHC PRN PO DYSPEPSIA Last administered on 05/26/17at 20:02; Start 05/19/17 at 16:15 Magnesium Hydroxide (Milk Of Magnesia) 2,400 mg PRN QHS PRN PO CONSTIPATION Last administered on 06/25/17at 05:58; Start 05/19/17 at 16:15 Clonazepam (KlonoPIN) 1 mg BID PO Last administered on 05/29/17at 08:45; Start at 21:00; Stop 05/29/17 at 17:47; Status DC Donepezil HCl (Aricept) 5 mg QHS PO Last administered on 05/30/17at 20:24; Start 05/19/17 at 21:00; Stop 05/31/17 at 18:41; Status DC Lamotrigine (LaMICtal) 150 mg BID PO Last administered on 05/20/17at 20:17; Start 05/19/17 at 21:00; Stop 05/20/17 at 20:37; Status DC Memantine (Namenda) 5 mg DAILY PO Last administered on 06/07/17at 09:02; Start 05/20/17 at 09:00; Stop 06/07/17 at 18:46; Status DC Mirtazapine (Remeron) 15 mg QHS PO Last administered on 06/06/17at 20:36; Start 05/19/17 at 21:00; Stop 06/07/17 at 18:46; Status DC Quetiapine Fumarate (SEROquel) 400 mg QHS PO Last administered on 05/22/17at 19: 57; Start 05/19/17 at 21:00; Stop 05/23/17 at 18:44; Status DC Venlafaxine HCl (Effexor) 50 mg TID PO Last administered on 05/20/17at 14:00; Start 05/19/17 at 21:00; Stop 05/20/17 at 19:25; Status DC Acetaminophen (Tylenol) 650 mg PRN Q4HRS PRN PO PAIN Last administered on at 19:43; Start 05/19/17 at 18:15 Vitamin D (Vitamin D3) 3,000 unit QHS PO Last administered on 06/30/17at 19:47; Start 05/19/17 at 21:00 Fluticasone Propionate (Flonase) 2 spray PRN BID PRN NS ALLERGIES; Start at 18:15 Gabapentin (Neurontin) 100 mg PRN Q6HRS PRN PO ANXIETY; Start 05/19/17 at 18:15 ; Stop 05/20/17 at 19:25; Status DC Guaifenesin (Mucinex Er) 600 mg PRN BID PRN PO coughing; Start 05/19/17 at 18: 15 Ketoconazole (Nizoral 2% Shampoo) 1 missael QMONFR TP Last administered on at 14:11; Start 05/26/17 at 16:00 Lidocaine HCl (Uro-Jet) 5 missael PRN Q4HRS PRN TP PAIN; Start 05/19/17 at 18:15; Stop 05/19/17 at 20:05; Status DC Nystatin (Mycostatin) 1 missael PRN BID PRN TP itching; Start 05/19/17 at 18:15; Stop 06/02/17 at 11:13; Status DC Polyethylene Glycol (miraLAX) 17 gm HS PO Last administered on 06/30/17 19:46; Start 05/19/17 at 21:00 Gabapentin (Neurontin) 600 mg QID PO Last administered on 05/20/17at 17:21; Start 05/19/17 at 21:00; Stop 05/20/17 at 19:25; Status DC Multivitamins/ Calcium (Thera-M Plus) 1 tab DAILY PO Last administered on at 07:59; Start 05/20/17 at 09:00; Stop 05/21/17 at 14:59; Status DC Fish Oil (Fish Oil) 1,000 mg QHS PO Last administered on 06/30/17 19:45; Start 05/19/17 at 21:00 Ondansetron HCl (Zofran Odt) 4 mg PRN Q6HRS PRN PO NAUSEA; Start 05/19/17 at 19 :00 Non-Formulary Medication 1 drop QID EACHEYE ; Start 05/19/17 at 21:00; Stop at 21:00; Status DC Artificial Tears (Artificial Tears) 1 drop PRN QID PRN OU DRY EYE; Start at 19:00; Stop 05/20/17 at 14:59; Status DC Lidocaine HCl (Xylocaine 2% Topical 5gm Tube) 1 missael PRN Q4HRS PRN TP PAIN; Start 05/19/17 at 20:15; Stop 05/20/17 at 14:59; Status DC Lidocaine HCl (Xylocaine 2% Topical 5gm Tube) 1 missael PRN Q4HRS PRN TP PAIN Last administered on 05/23/17at 05:41; Start 05/20/17 at 14:59 Artificial Tears (Artificial Tears) 1 drop PRN QID PRN OU DRY EYE Last administered on 05/29/17at 08:44; Start 05/20/17 at 14:59 Gabapentin (Neurontin) 600 mg TID PO Last administered on 06/01/17at 19:24; Start 05/20/17 at 21:00; Stop 06/01/17 at 23:00; Status DC Duloxetine HCl (Cymbalta) 30 mg DAILY PO Last administered on 06/03/17 07:42; Start 05/21/17 at 09:00; Stop 06/03/17 at 18:33; Status DC Lamotrigine (LaMICtal) 150 mg DAILY PO Last administered on 05/29/17 08:40; Start 05/21/17 at 09:00; Stop 05/29/17 at 17:46; Status DC Lamotrigine (LaMICtal) 200 mg HS PO Last administered on 05/28/17at 19:45; Start 05/20/17 at 21:00; Stop 05/29/17 at 17:46; Status DC Prenat Multivit/ Clinical Data Programmer/Iron/Folic Ac (Multivitamin ) 1 tab DAILYBFRSUP PO Last administered on 06/30/17at 13:00; Start 05/21/17 at 17:00 Fosfomycin Tromethamine (Monurol) 3 gm 1X ONCE PO Last administered on at 15:00; Start 05/21/17 at 15:00; Stop 05/21/17 at 15:01; Status DC Quetiapine Fumarate (SEROquel) 300 mg QHS PO Last administered on 05/25/17 20: 28; Start 05/23/17 at 21:00; Stop 05/26/17 at 17:47; Status DC Nystatin (Nystop) 15 missael STK-MED ONCE TP Last administered on 05/24/17at 17:40; Start 05/24/17 at 17:40; Stop 05/24/17 at 17:41; Status DC Sodium Chloride (Saline Mist Nasal) 1 missael PRN Q1HR PRN NS NASAL CONGESTION Last administered on 05/27/17 20:38; Start 05/25/17 at 09:15 Quetiapine Fumarate (SEROquel) 200 mg QHS PO Last administered on 06/04/17at 20: 24; Start 05/26/17 at 21:00; Stop 06/05/17 at 17:39; Status DC Ketorolac Tromethamine (Acular) 1 drop Q8HRS OD Last administered on 06/03/17 06:23; Start 05/29/17 at 14:00; Stop 06/03/17 at 13:59; Status DC Lamotrigine (LaMICtal) 200 mg BID PO Last administered on 2/10/18at 07:42; Start 05/29/17 at 21:00; Stop 06/03/17 at 18:33; Status DC Clonazepam (KlonoPIN) 1 mg DAILY PO Last administered on 06/01/17at 08:07; Start 05/30/17 at 09:00; Stop 06/01/17 at 12:25; Status DC Clonazepam (KlonoPIN) 0.75 mg QHS PO Last administered on 06/07/17at 19:56; Start 05/29/17 at 21:00; Stop 06/08/17 at 21:00; Status DC Donepezil HCl (Aricept) 10 mg QHS PO Last administered on 06/06/17at 20:22; Start 05/31/17 at 21:00; Stop 06/07/17 at 18:46; Status DC Clonazepam (KlonoPIN) 0.75 mg DAILY PO Last administered on 06/04/17at 07:52; Start 06/02/17 at 09:00; Stop 06/04/17 at 09:01; Status DC Clonazepam (KlonoPIN) 0.5 mg DAILY PO Last administered on 06/13/17at 08:01; Start 06/05/17 at 09:00; Stop 06/13/17 at 09:01; Status DC Clonazepam (KlonoPIN) 0.5 mg HS PO Last administered on 06/10/17at 20:35; Start 06/08/17 at 21:00; Stop 06/10/17 at 21:01; Status DC Ciprofloxacin (Cipro) 250 mg BID PO Last administered on 06/06/17at 08:20; Start 06/01/17 at 21:00; Stop 06/06/17 at 20:59; Status DC Gabapentin (Neurontin) 300 mg QID PO Last administered on 06/05/17at 19:42; Start 06/02/17 at 04:00; Stop 06/05/17 at 23:00; Status DC Gabapentin (Neurontin) 300 mg TID PO Last administered on 06/08/17at 20:23; Start 06/06/17 at 04:00; Stop 06/08/17 at 23:00; Status DC Gabapentin (Neurontin) 300 mg BID PO ; Start 06/09/17 at 04:00; Stop 06/09/17 at 04:00; Status DC Lactobacillus Rhamnosus (Culturelle) 1 cap BID PO Last administered on at 19:45; Start 06/02/17 at 21:00; Stop 06/24/17 at 07:51; Status DC Nystatin (Mycostatin) 1 missael BID TP ; Start 06/02/17 at 21:00; Stop 06/02/17 at 21: 07; Status DC Nystatin (Mycostatin) 1 missael BID TP ; Start 06/02/17 at 21:00; Stop 06/03/17 at 07 :47; Status DC Nystatin (Nystop) 1 missael BID TP Last administered on 06/30/17at 19:47; Start 06/03 at 09:00 Lamotrigine (LaMICtal) 150 mg HS PO Last administered on 06/05/17at 19:40; Start 06/03/17 at 21:00; Stop 06/06/17 at 00:00; Status DC Duloxetine HCl (Cymbalta) 60 mg DAILY PO Last administered on 06/07/17at 09:02; Start 06/04/17 at 09:00; Stop 06/07/17 at 18:46; Status DC Lamotrigine (LaMICtal) 100 mg DAILY PO Last administered on 06/04/17at 07:54; Start 06/04/17 at 09:00; Stop 06/04/17 at 09:50; Status DC Lamotrigine (LaMICtal) 200 mg DAILY PO Last administered on 06/30/17at 07:52; Start 06/05/17 at 09:00 Lamotrigine (LaMICtal) 200 mg HS PO Last administered on 06/30/17at 19:46; Start 06/06/17 at 21:00 Lamotrigine (LaMICtal) 100 mg 1X ONCE PO Last administered on 06/04/17at 10:00 ; Start 06/04/17 at 10:00; Stop 06/04/17 at 10:01; Status DC Quetiapine Fumarate (SEROquel) 250 mg QHS PO Last administered on 06/21/17at 20: 33; Start 06/05/17 at 21:00; Stop 06/22/17 at 19:07; Status DC Duloxetine HCl (Cymbalta) 30 mg DAILY PO Last administered on 06/10/17at 07:58; Start 06/08/17 at 09:00; Stop 06/11/17 at 08:59; Status DC Gabapentin (Neurontin) 300 mg BID PO Last administered on 06/14/17 09:08; Start 06/10/17 at 09:00; Stop 06/14/17 at 18:36; Status DC Olanzapine (ZyPREXA ZYDIS) 2.5 mg PRN Q2HR PRN PO PSYCHOSIS Last administered on 06/29/17at 05:34; Start 06/09/17 at 18:45 Clonazepam (KlonoPIN) 0.25 mg DAILY PO Last administered on 06/16/17at 08:57; Start 06/14/17 at 09:00; Stop 06/16/17 at 09:00; Status DC Clonazepam (KlonoPIN) 0.5 mg HS PO Last administered on 06/16/17at 19:38; Start 06/13/17 at 21:00; Stop 06/16/17 at 21:00; Status DC Clonazepam (KlonoPIN) 0.25 mg BID PO Last administered on 06/20/17at 19:26; Start 06/17/17 at 09:00; Stop 06/21/17 at 08:59; Status DC Gabapentin (Neurontin) 300 mg DAILY PO Last administered on 06/17/17at 08:22; Start 06/15/17 at 09:00; Stop 06/18/17 at 08:59; Status DC Clonazepam (KlonoPIN) 0.25 mg DAILY PO Last administered on 06/23/17 09:34; Start 06/21/17 at 09:00; Stop 06/24/17 at 08:59; Status DC Quetiapine Fumarate (SEROquel) 200 mg QHS PO Last administered on 06/30/17at 19: 47; Start 06/22/17 at 21:00 Quetiapine Fumarate (SEROquel) 25 mg 0900,1300 PO Last administered on at 12:08; Start 06/23/17 at 09:00; Stop 06/27/17 at 18:26; Status DC Quetiapine Fumarate (SEROquel) 25 mg DAILY@1300 PO Last administered on at 13:01; Start 06/28/17 at 13:00 Quetiapine Fumarate (SEROquel) 50 mg DAILY PO Last administered on 06/30/17at 07: 53; Start 06/28/17 at 09:00 Metoprolol Tartrate (Lopressor) 12.5 mg BID PO Last administered on 06/30/17at 19 :46; Start 06/29/17 at 10:15 Active Scripts Active Reported Lamotrigine 200 Mg Tablet 200 Mg PO HS Lamotrigine 200 Mg Tablet 200 Mg PO DAILY Seroquel (Quetiapine Fumarate) 50 Mg Tablet 50 Mg PO DAILY Seroquel (Quetiapine Fumarate) 25 Mg Tablet 25 Mg PO DAILY@1300 Seroquel (Quetiapine Fumarate) 200 Mg Tablet 200 Mg PO QHS Multi Tablet (Pnv No.122/Iron/Folic Acid) 1 Each Tablet 1 Tab PO DAILYBFRSUP Vitamins ( Vits W-Ca,Fe,Fa(<1MG)) 1 Each Tablet 1 Tab PO DAILYBFRSUP Polyvinyl Alcohol 15 Ml Drops 1 Drop OU [place] 3 1,000 Mg Softgel ([place]-3 Fatty Acids/Fish Oil) 1 Each Capsule 1 Cap PO QHS Zyprexa Zydis (Olanzapine) 5 Mg Tab.rapdis 5 Mg PO PRN Q2HR PRN Nystatin 15 Gm Powder 15 Gm TP BID Analgesic [place] (Methyl Salicylate/Menthol) 28 Gm Oint...g. 1 Missael TP PRN QID PRN Milk Of Magnesia (Magnesium Hydroxide) 400 Mg/5 Ml Oral.susp 2,400 Mg PO PRN QHS PRN Mag-Al Plus Xs Suspension (Mag Hydrox/Al Hydrox/Simeth) 30 Ml Oral.susp 15 Ml PO PRN AFTMEALHC PRN Lidocaine 5 Gm Cream..g. 1 Missael TP PRN Q4HRS PRN Vitamin D3 (Cholecalciferol (Vitamin D3)) 1,000 Unit Tablet 3,000 Unit PO QHS Systane 0.3-0.4% Eye Drops (Propylene Glycol/Peg 400) 15 Ml Drops 1 Drop EACHEYE QID Systane 0.3-0.4% Eye Drops (Propylene Glycol/Peg 400) 15 Ml Drops 1 Drop EACHEYE QIDPRN PRN Pain Reliever Plus Tablet (Aspirin/Acetaminophen/Caffeine) 1 Each Tablet 2 Each PO PRN PRN Ondansetron Hcl 4 Mg Tablet 4 Mg PO PRN Q6HRS PRN Nystatin 100,000 Unit/1 Ml Oral.susp 100,000 Unit PO Nystatin 15 Gm Cream..g. 1 Missael TP PRN BID PRN Miralax (Polyethylene Glycol 3350) 17 Gm Powd.pack 17 Gm PO HS Lidocaine Hcl 5 Ml Jel..ml. 5 Ml TOP PRN Q4HRS Ketoconazole 120 Ml Shampoo 1 Missael TP TWICE WEEKLY Ibuprofen 100 Mg/5 Ml Oral.susp 200 Mg PO PRN TID PRN Hydroxyzine Hcl 25 Mg Tablet 25 Mg PO PRN Q4HRS PRN Hydrocortisone 453.6 Gm Oint...g. 1 Missael TP PRN BID PRN Epa-Dha 720 Softgel ([place]-3/Dha/Epa/Fish Oil) 1 Each Capsule 1 Each PO QHS Donepezil Hcl 5 Mg Tablet 5 Mg PO QHS Saline Nasal [place] (Sodium Chloride) 30 Ml [place] 1 Spr NS PRN PRN Tylenol (Acetaminophen) 325 Mg Tablet 650 Mg PO PRN Q4HRS PRN Seroquel (Quetiapine Fumarate) 400 Mg Tablet 400 Mg PO HS Mirtazapine 15 Mg Tablet 15 Mg PO QHS Lamotrigine 150 Mg Tablet 150 Mg PO BID Fluticasone Propionate Nasal [place] (Fluticasone Propionate) 16 Gm [place].susp [address] [place] [address] NS PRN BID PRN Effexor Xr (Venlafaxine Hcl) 150 Mg Cap.er.24h 150 Mg PO DAILY Multi Vitamin Daily (Multivitamin) 1 Each Tablet 1 Each PO DAILY Mucinex (Guaifenesin) 600 Mg Tablet.er 600 Mg PO PRN BID PRN Namenda (Memantine Hcl) 10 Mg Tablet 5 Mg PO DAILY Gabapentin 600 Mg Tablet 600 Mg PO QID Gabapentin 100 Mg Capsule 100 Mg PO PRN Q6HRS Clonazepam 1 Mg Tablet 1 Mg PO BID I have reviewed the current psychotropics carefully including drug interactions. Risk benefit ratio favors no change other than as noted in my dictated progress note. Diagnosis: Problems: (1) Major depression (2) Anxiety (3) Bipolar affective disorder, mixed (4) Anxiety disorder (5) Major depressive disorder, recurrent episode (6) Impulse control disorder BRIAN CHAPA MD Jun 30, 2017 20:04
[2017-06-30] MEDS: ACETAMINOPHEN 325 MG TABLET PO PRN (20:18)
--- NOTE | 2017-06-30 21:24 | PN ---
DATE: 06/28/2017 This is a late entry, 06/28/2017, covers the elements not covered in my initial note, 06/28/2017. SUBJECTIVE: I met with the patient evening of 06/28/2017. The patient was somewhat needy, anxious, confused, wanting to know when she will be discharged, believes someone is going to kill her. She did talk to her sister, seemed plicated by this. We will check a UA to make sure there is no UTI, worsening confusion. REVIEW OF SYSTEMS: Ambulation impaired with walker. No CV, , pulmonary, eye system symptoms on review. MENTAL STATUS EXAM: Oriented to herself and situation. Speech coherent, abstraction fair, computation impaired, language function intact, attention span short. Mood and affect somewhat anxious, labile. LABORATORY DATA: Reviewed. IMPRESSION: Bipolar 1 disorder, depressed, in partial remission; anxiety disorder, unspecified; cognitive disorder, unspecified. Rest unchanged. PLAN: Check urinalysis, continue psychotropics as mentioned in my initial note for now. MAN Vidal CHAPA MD DR: ANTONIO/gianfranco JOB#: [id number] / [id number]
--- NOTE | 2017-06-30 23:38 | PN ---
DATE: 06/29/2017 PSYCHIATRIC PROGRESS NOTE This is a late entry for 06/29/2017, covers elements not covered in my initial note of 06/29/2017. SUBJECTIVE: The patient was staffed at a treatment team meeting the morning of 06/29/2017, seen individually the evening of 06/29/2017. Her UA has reflex to culture, gets disorganized, anxious at times. REVIEW OF SYSTEMS: Ambulation impaired with walker. No CV, , pulmonary, eye, ENT system symptoms on review. MENTAL STATUS EXAM: Oriented to herself and situation. Speech coherent, abstraction fair, computation impaired, language function intact, attention span short. Mood and affect still somewhat labile. LABORATORY DATA: Reviewed. IMPRESSION: Unchanged from initial note. PLAN: Continue current psychotropics mentioned in my initial note. Await UA, C and S, and decide on treatment. MAN Vidal CHAPA MD DR: ANTONIO/gianfranco JOB#: [id number] / [id number]
[2017-07-01 07:19] VITALS: BP 110/52
[2017-07-01] MEDS: QUEtiapine 50 MG TABLET. PO SCH (07:29)
[2017-07-01] MEDS: METOPROLOL TART IMMED RELEASE 25 MG TABLET PO SCH ×2 (07:29→19:45)
[2017-07-01] MEDS: lamoTRIgine 100 MG TABLET. PO SCH ×2 (07:29→19:44)
[2017-07-01] MEDS: NYSTATIN TOPICAL POWDER 15GM BOTTLE. TP SCH ×2 (07:30→19:47)
[2017-07-01] MEDS: PRENATAL MULTIVITAMIN TABLET. PO SCH (13:01)
[2017-07-01] MEDS: QUEtiapine 25 MG TABLET. PO SCH (13:01)
[2017-07-01 16:32] VITALS: BP 120/64
[2017-07-01] MEDS: ACETAMINOPHEN 325 MG TABLET PO PRN (18:07)
[2017-07-01] MEDS: OMEGA-3 FATTY ACIDS/FISH OIL 1,000 MG CAPSULE. PO SCH (19:44)
[2017-07-01] MEDS: QUEtiapine 100 MG TABLET. PO SCH (19:45)
[2017-07-01] MEDS: CHOLECALCIFEROL (VITAMIN D3) 1,000 UNIT TABLET PO SCH (19:45)
[2017-07-01] MEDS: POLYETHYLENE GLYCOL 3350 17 GM PACKET. PO SCH (19:45)
--- NOTE | 2017-07-01 21:18 | PDOC ---
Exam Note: Greg Note: Please also refer to the separate dictated note~for this date of service dictated separately.~Patient seen individually. Discussed the patient with Nursing staff reviewed the chart.~Reviewed interim history and current functioning. Reviewed vital signs,~Labs/ Radiology~and current medications noted below. Continue current treatment with the changes noted in the dictated addendum note Assessment: Vital Signs: Vital Signs Date Time Temp Pulse Resp B/P (MAP) Pulse Ox O2 Delivery O2 Flow Rate FiO2 07/01/17 19:45 96 120/64 07/01/17 16:32 98.1 16 97 Room Air I&O Intake and Output 07/01/17 07:00 Intake Total 1140 ml Balance 1140 ml Intake Oral 1140 ml # Voids 1 Current Medications: Meds: Current Medications Acetaminophen (Tylenol) 650 mg PRN Q6HRS PRN PO PAIN / TEMP; Start 05/19/17 at 16:15; Stop 05/19/17 at 18:42; Status DC Multi-Ingredient Ointment (Analgesic [place]) 1 missael PRN QID PRN TP MUSCLE PAIN Last administered on 06/20/17at 09:44; Start 05/19/17 at 16:15 Al Hydroxide/Mg Hydroxide (Mylanta Plus Xs) 15 ml PRN AFTMEALHC PRN PO DYSPEPSIA Last administered on 05/26/17at 20:02; Start 05/19/17 at 16:15 Magnesium Hydroxide (Milk Of Magnesia) 2,400 mg PRN QHS PRN PO CONSTIPATION Last administered on 06/25/17at 05:58; Start 05/19/17 at 16:15 Clonazepam (KlonoPIN) 1 mg BID PO Last administered on 05/29/17at 08:45; Start at 21:00; Stop 05/29/17 at 17:47; Status DC Donepezil HCl (Aricept) 5 mg QHS PO Last administered on 05/30/17at 20:24; Start 05/19/17 at 21:00; Stop 05/31/17 at 18:41; Status DC Lamotrigine (LaMICtal) 150 mg BID PO Last administered on 05/20/17at 20:17; Start 05/19/17 at 21:00; Stop 05/20/17 at 20:37; Status DC Memantine (Namenda) 5 mg DAILY PO Last administered on 06/07/17at 09:02; Start 05/20/17 at 09:00; Stop 06/07/17 at 18:46; Status DC Mirtazapine (Remeron) 15 mg QHS PO Last administered on 06/06/17at 20:36; Start 05/19/17 at 21:00; Stop 06/07/17 at 18:46; Status DC Quetiapine Fumarate (SEROquel) 400 mg QHS PO Last administered on 05/22/17at 19: 57; Start 05/19/17 at 21:00; Stop 05/23/17 at 18:44; Status DC Venlafaxine HCl (Effexor) 50 mg TID PO Last administered on 05/20/17at 14:00; Start 05/19/17 at 21:00; Stop 05/20/17 at 19:25; Status DC Acetaminophen (Tylenol) 650 mg PRN Q4HRS PRN PO PAIN Last administered on at 18:07; Start 05/19/17 at 18:15 Vitamin D (Vitamin D3) 3,000 unit QHS PO Last administered on 07/01/17at 19:45; Start 05/19/17 at 21:00 Fluticasone Propionate (Flonase) 2 spray PRN BID PRN NS ALLERGIES; Start at 18:15 Gabapentin (Neurontin) 100 mg PRN Q6HRS PRN PO ANXIETY; Start 05/19/17 at 18:15 ; Stop 05/20/17 at 19:25; Status DC Guaifenesin (Mucinex Er) 600 mg PRN BID PRN PO coughing; Start 05/19/17 at 18: 15 Ketoconazole (Nizoral 2% Shampoo) 1 missael QMONFR TP Last administered on at 14:11; Start 05/26/17 at 16:00 Lidocaine HCl (Uro-Jet) 5 missael PRN Q4HRS PRN TP PAIN; Start 05/19/17 at 18:15; Stop 05/19/17 at 20:05; Status DC Nystatin (Mycostatin) 1 missael PRN BID PRN TP itching; Start 05/19/17 at 18:15; Stop 06/02/17 at 11:13; Status DC Polyethylene Glycol (miraLAX) 17 gm HS PO Last administered on 07/01/17at 19:45 ; Start 05/19/17 at 21:00 Gabapentin (Neurontin) 600 mg QID PO Last administered on 05/20/17at 17:21; Start 05/19/17 at 21:00; Stop 05/20/17 at 19:25; Status DC Multivitamins/ Calcium (Thera-M Plus) 1 tab DAILY PO Last administered on at 07:59; Start 05/20/17 at 09:00; Stop 05/21/17 at 14:59; Status DC Fish Oil (Fish Oil) 1,000 mg QHS PO Last administered on 07/01/17at 19:44; Start 05/19/17 at 21:00 Ondansetron HCl (Zofran Odt) 4 mg PRN Q6HRS PRN PO NAUSEA; Start 05/19/17 at 19 :00 Non-Formulary Medication 1 drop QID EACHEYE ; Start 05/19/17 at 21:00; Stop at 21:00; Status DC Artificial Tears (Artificial Tears) 1 drop PRN QID PRN OU DRY EYE; Start at 19:00; Stop 05/20/17 at 14:59; Status DC Lidocaine HCl (Xylocaine 2% Topical 5gm Tube) 1 missael PRN Q4HRS PRN TP PAIN; Start 05/19/17 at 20:15; Stop 05/20/17 at 14:59; Status DC Lidocaine HCl (Xylocaine 2% Topical 5gm Tube) 1 missael PRN Q4HRS PRN TP PAIN Last administered on 05/23/17at 05:41; Start 05/20/17 at 14:59 Artificial Tears (Artificial Tears) 1 drop PRN QID PRN OU DRY EYE Last administered on 05/29/17at 08:44; Start 05/20/17 at 14:59 Gabapentin (Neurontin) 600 mg TID PO Last administered on 06/01/17at 19:24; Start 05/20/17 at 21:00; Stop 06/01/17 at 23:00; Status DC Duloxetine HCl (Cymbalta) 30 mg DAILY PO Last administered on 06/03/17at 07:42; Start 05/21/17 at 09:00; Stop 06/03/17 at 18:33; Status DC Lamotrigine (LaMICtal) 150 mg DAILY PO Last administered on 05/29/17at 08:40; Start 05/21/17 at 09:00; Stop 05/29/17 at 17:46; Status DC Lamotrigine (LaMICtal) 200 mg HS PO Last administered on 05/28/17at 19:45; Start 05/20/17 at 21:00; Stop 05/29/17 at 17:46; Status DC Prenat Multivit/ [place]/Iron/Folic Ac (Multivitamin ) 1 tab DAILYBFRSUP PO Last administered on 07/01/17 13:01; Start 05/21/17 at 17:00 Fosfomycin Tromethamine (Monurol) 3 gm 1X ONCE PO Last administered on at 15:00; Start 05/21/17 at 15:00; Stop 05/21/17 at 15:01; Status DC Quetiapine Fumarate (SEROquel) 300 mg QHS PO Last administered on 05/25/17at 20: 28; Start 05/23/17 at 21:00; Stop 05/26/17 at 17:47; Status DC Nystatin (Nystop) 15 missael STK-MED ONCE TP Last administered on 05/24/17at 17:40; Start 05/24/17 at 17:40; Stop 05/24/17 at 17:41; Status DC Sodium Chloride (Saline Mist Nasal) 1 missael PRN Q1HR PRN NS NASAL CONGESTION Last administered on 05/27/17at 20:38; Start 05/25/17 at 09:15 Quetiapine Fumarate (SEROquel) 200 mg QHS PO Last administered on 06/04/17at 20: 24; Start 05/26/17 at 21:00; Stop 06/05/17 at 17:39; Status DC Ketorolac Tromethamine (Acular) 1 drop Q8HRS OD Last administered on 06/03/17at 06:23; Start 05/29/17 at 14:00; Stop 06/03/17 at 13:59; Status DC Lamotrigine (LaMICtal) 200 mg BID PO Last administered on 06/03/17at 07:42; Start 05/29/17 at 21:00; Stop 06/03/17 at 18:33; Status DC Clonazepam (KlonoPIN) 1 mg DAILY PO Last administered on 06/01/17at 08:07; Start 05/30/17 at 09:00; Stop 06/01/17 at 12:25; Status DC Clonazepam (KlonoPIN) 0.75 mg QHS PO Last administered on 06/07/17at 19:56; Start 05/29/17 at 21:00; Stop 06/08/17 at 21:00; Status DC Donepezil HCl (Aricept) 10 mg QHS PO Last administered on 06/06/17at 20:22; Start 05/31/17 at 21:00; Stop 06/07/17 at 18:46; Status DC Clonazepam (KlonoPIN) 0.75 mg DAILY PO Last administered on 06/04/17at 07:52; Start 06/02/17 at 09:00; Stop 06/04/17 at 09:01; Status DC Clonazepam (KlonoPIN) 0.5 mg DAILY PO Last administered on 06/13/17at 08:01; Start 06/05/17 at 09:00; Stop 06/13/17 at 09:01; Status DC Clonazepam (KlonoPIN) 0.5 mg HS PO Last administered on 06/10/17at 20:35; Start 06/08/17 at 21:00; Stop 06/10/17 at 21:01; Status DC Ciprofloxacin (Cipro) 250 mg BID PO Last administered on 06/06/17at 08:20; Start 06/01/17 at 21:00; Stop 06/06/17 at 20:59; Status DC Gabapentin (Neurontin) 300 mg QID PO Last administered on 06/05/17at 19:42; Start 06/02/17 at 04:00; Stop 06/05/17 at 23:00; Status DC Gabapentin (Neurontin) 300 mg TID PO Last administered on 06/08/17at 20:23; Start 06/06/17 at 04:00; Stop 06/08/17 at 23:00; Status DC Gabapentin (Neurontin) 300 mg BID PO ; Start 06/09/17 at 04:00; Stop 06/09/17 at 04:00; Status DC Lactobacillus Rhamnosus (Culturelle) 1 cap BID PO Last administered on at 19:45; Start 06/02/17 at 21:00; Stop 06/24/17 at 07:51; Status DC Nystatin (Mycostatin) 1 missael BID TP ; Start 06/02/17 at 21:00; Stop 06/02/17 at 21: 07; Status DC Nystatin (Mycostatin) 1 missael BID TP ; Start 06/02/17 at 21:00; Stop 06/03/17 at 07 :47; Status DC Nystatin (Nystop) 1 missael BID TP Last administered on 07/01/17at 19:47; Start 02/08 at 09:00 Lamotrigine (LaMICtal) 150 mg HS PO Last administered on 06/05/17at 19:40; Start 06/03/17 at 21:00; Stop 06/06/17 at 00:00; Status DC Duloxetine HCl (Cymbalta) 60 mg DAILY PO Last administered on 06/07/17at 09:02; Start 06/04/17 at 09:00; Stop 06/07/17 at 18:46; Status DC Lamotrigine (LaMICtal) 100 mg DAILY PO Last administered on 06/04/17at 07:54; Start 06/04/17 at 09:00; Stop 06/04/17 at 09:50; Status DC Lamotrigine (LaMICtal) 200 mg DAILY PO Last administered on 07/01/17at 07:29; Start 06/05/17 at 09:00 Lamotrigine (LaMICtal) 200 mg HS PO Last administered on 07/01/17at 19:44; Start 06/06/17 at 21:00 Lamotrigine (LaMICtal) 100 mg 1X ONCE PO Last administered on 06/04/17at 10:00 ; Start 06/04/17 at 10:00; Stop 06/04/17 at 10:01; Status DC Quetiapine Fumarate (SEROquel) 250 mg QHS PO Last administered on 06/21/17at 20: 33; Start 06/05/17 at 21:00; Stop 06/22/17 at 19:07; Status DC Duloxetine HCl (Cymbalta) 30 mg DAILY PO Last administered on 06/10/17at 07:58; Start 06/08/17 at 09:00; Stop 06/11/17 at 08:59; Status DC Gabapentin (Neurontin) 300 mg BID PO Last administered on 06/14/17at 09:08; Start 06/10/17 at 09:00; Stop 06/14/17 at 18:36; Status DC Olanzapine (ZyPREXA ZYDIS) 2.5 mg PRN Q2HR PRN PO PSYCHOSIS Last administered on 06/29/17at 05:34; Start 06/09/17 at 18:45 Clonazepam (KlonoPIN) 0.25 mg DAILY PO Last administered on 06/16/17at 08:57; Start 06/14/17 at 09:00; Stop 06/16/17 at 09:00; Status DC Clonazepam (KlonoPIN) 0.5 mg HS PO Last administered on 06/16/17at 19:38; Start 06/13/17 at 21:00; Stop 06/16/17 at 21:00; Status DC Clonazepam (KlonoPIN) 0.25 mg BID PO Last administered on 06/20/17at 19:26; Start 06/17/17 at 09:00; Stop 06/21/17 at 08:59; Status DC Gabapentin (Neurontin) 300 mg DAILY PO Last administered on 06/17/17at 08:22; Start 06/15/17 at 09:00; Stop 06/18/17 at 08:59; Status DC Clonazepam (KlonoPIN) 0.25 mg DAILY PO Last administered on 06/23/17at 09:34; Start 06/21/17 at 09:00; Stop 06/24/17 at 08:59; Status DC Quetiapine Fumarate (SEROquel) 200 mg QHS PO Last administered on 07/01/17at 19: 45; Start 06/22/17 at 21:00 Quetiapine Fumarate (SEROquel) 25 mg 0900,1300 PO Last administered on at 12:08; Start 06/23/17 at 09:00; Stop 06/27/17 at 18:26; Status DC Quetiapine Fumarate (SEROquel) 25 mg DAILY@1300 PO Last administered on at 13:01; Start 06/28/17 at 13:00 Quetiapine Fumarate (SEROquel) 50 mg DAILY PO Last administered on 07/01/17at 07 :29; Start 06/28/17 at 09:00 Metoprolol Tartrate (Lopressor) 12.5 mg BID PO Last administered on 07/01/17at 19:45; Start 06/29/17 at 10:15 Active Scripts Active Reported Lamotrigine 200 Mg Tablet 200 Mg PO HS Lamotrigine 200 Mg Tablet 200 Mg PO DAILY Seroquel (Quetiapine Fumarate) 50 Mg Tablet 50 Mg PO DAILY Seroquel (Quetiapine Fumarate) 25 Mg Tablet 25 Mg PO DAILY@1300 Seroquel (Quetiapine Fumarate) 200 Mg Tablet 200 Mg PO QHS Multi Tablet (Pnv No.122/Iron/Folic Acid) 1 Each Tablet 1 Tab PO DAILYBFRSUP Vitamins ( Vits W-Ca,Fe,Fa(<1MG)) 1 Each Tablet 1 Tab PO DAILYBFRSUP Polyvinyl Alcohol 15 Ml Drops 1 Drop OU [place] 3 1,000 Mg Softgel ([place]-3 Fatty Acids/Fish Oil) 1 Each Capsule 1 Cap PO QHS Zyprexa Zydis (Olanzapine) 5 Mg Tab.rapdis 5 Mg PO PRN Q2HR PRN Nystatin 15 Gm Powder 15 Gm TP BID Analgesic [place] (Methyl Salicylate/Menthol) 28 Gm Oint...g. 1 Missael TP PRN QID PRN Milk Of Magnesia (Magnesium Hydroxide) 400 Mg/5 Ml Oral.susp 2,400 Mg PO PRN QHS PRN Mag-Al Plus Xs Suspension (Mag Hydrox/Al Hydrox/Simeth) 30 Ml Oral.susp 15 Ml PO PRN AFTMEALHC PRN Lidocaine 5 Gm Cream..g. 1 Missael TP PRN Q4HRS PRN Vitamin D3 (Cholecalciferol (Vitamin D3)) 1,000 Unit Tablet 3,000 Unit PO QHS Systane 0.3-0.4% Eye Drops (Propylene Glycol/Peg 400) 15 Ml Drops 1 Drop EACHEYE QID Systane 0.3-0.4% Eye Drops (Propylene Glycol/Peg 400) 15 Ml Drops 1 Drop EACHEYE QIDPRN PRN Pain Reliever Plus Tablet (Aspirin/Acetaminophen/Caffeine) 1 Each Tablet 2 Each PO PRN PRN Ondansetron Hcl 4 Mg Tablet 4 Mg PO PRN Q6HRS PRN Nystatin 100,000 Unit/1 Ml Oral.susp 100,000 Unit PO Nystatin 15 Gm Cream..g. 1 Missael TP PRN BID PRN Miralax (Polyethylene Glycol 3350) 17 Gm Powd.pack 17 Gm PO HS Lidocaine Hcl 5 Ml Jel..ml. 5 Ml TOP PRN Q4HRS Ketoconazole 120 Ml Shampoo 1 Missael TP TWICE WEEKLY Ibuprofen 100 Mg/5 Ml Oral.susp 200 Mg PO PRN TID PRN Hydroxyzine Hcl 25 Mg Tablet 25 Mg PO PRN Q4HRS PRN Hydrocortisone 453.6 Gm Oint...g. 1 Missael TP PRN BID PRN Epa-Dha 720 Softgel ([place]-3/Dha/Epa/Fish Oil) 1 Each Capsule 1 Each PO QHS Donepezil Hcl 5 Mg Tablet 5 Mg PO QHS Saline Nasal [place] (Sodium Chloride) 30 Ml [place] 1 Spr NS PRN PRN Tylenol (Acetaminophen) 325 Mg Tablet 650 Mg PO PRN Q4HRS PRN Seroquel (Quetiapine Fumarate) 400 Mg Tablet 400 Mg PO HS Mirtazapine 15 Mg Tablet 15 Mg PO QHS Lamotrigine 150 Mg Tablet 150 Mg PO BID Fluticasone Propionate Nasal [place] (Fluticasone Propionate) 16 Gm [place].susp 2 [place] NS PRN BID PRN Effexor Xr (Venlafaxine Hcl) 150 Mg Cap.er.24h 150 Mg PO DAILY Multi Vitamin Daily (Multivitamin) 1 Each Tablet 1 Each PO DAILY Mucinex (Guaifenesin) 600 Mg Tablet.er 600 Mg PO PRN BID PRN Namenda (Memantine Hcl) 10 Mg Tablet 5 Mg PO DAILY Gabapentin 600 Mg Tablet 600 Mg PO QID Gabapentin 100 Mg Capsule 100 Mg PO PRN Q6HRS Clonazepam 1 Mg Tablet 1 Mg PO BID I have reviewed the current psychotropics carefully including drug interactions. Risk benefit ratio favors no change other than as noted in my dictated progress note. Diagnosis: Problems: (1) Major depression (2) Anxiety (3) Bipolar affective disorder, mixed (4) Anxiety disorder (5) Major depressive disorder, recurrent episode (6) Impulse control disorder BRIAN CHAPA MD Jul 01, 2017 21:18
[2017-07-02 06:31] VITALS: BP 114/51
[2017-07-02] MEDS: QUEtiapine 50 MG TABLET. PO SCH (07:38)
[2017-07-02] MEDS: METOPROLOL TART IMMED RELEASE 25 MG TABLET PO SCH ×2 (07:39→20:31)
[2017-07-02] MEDS: lamoTRIgine 100 MG TABLET. PO SCH ×2 (07:39→20:30)
[2017-07-02] MEDS: NYSTATIN TOPICAL POWDER 15GM BOTTLE. TP SCH ×2 (07:40→20:33)
[2017-07-02] MEDS: QUEtiapine 25 MG TABLET. PO SCH (13:00)
[2017-07-02] MEDS ORDERED: ATOR20TA PO (13:07)
[2017-07-02] MEDS: ACETAMINOPHEN 325 MG TABLET PO PRN ×2 (13:17→21:37)
[2017-07-02] MEDS: PRENATAL MULTIVITAMIN TABLET. PO SCH (13:17)
[2017-07-02 13:36] LABS: BASO % 1 % (0-3); EOS # 0.1 x10^3/uL (0.0-0.7); EOS % 1 % (0-3); HEMATOCRIT 38.5 % (36.0-47.0); HEMOGLOBIN 12.9 g/dL (12.0-15.5); LYMPH # 0.9 x10^3/uL (1.0-4.8); LYMPH % 13 % (24-48); MEAN CORPUSCULAR HEMOGLOBIN 28 pg (25-35); MEAN CORPUSCULAR HGB CONC 33 g/dL (31-37); MEAN CORPUSCULAR VOLUME 82 fL (79-100); MONO # 0.5 x10^3/uL (0.0-1.1); MONO % 7 % (0-9); NEUT # 5.4 x10^3uL (1.8-7.7); NEUT % 79 % (31-73); PLATELET COUNT 315 x10^3/uL (140-400); RED BLOOD COUNT 4.69 x10^6/uL (3.50-5.40); WHITE BLOOD COUNT 6.9 x10^3/uL (4.0-11.0)
[2017-07-02 13:50] LABS: ALBUMIN 3.8 g/dL (3.4-5.0); ALBUMIN/GLOBULIN RATIO 1.1 (1.0-1.7); CALCIUM 9.8 mg/dL (8.5-10.1); CREATININE 1.3 mg/dL (0.6-1.0); GFR 40.2; POTASSIUM 4.3 mmol/L (3.5-5.1); TOTAL BILIRUBIN 0.4 mg/dL (0.2-1.0); TOTAL PROTEIN 7.4 g/dL (6.4-8.2)
--- NOTE | 2017-07-02 14:16 | PN ---
DATE: 06/30/2017 PSYCHIATRIC PROGRESS NOTE This late entry 06/30/2017 covers elements not covered in my initial note of 06/30/2017. SUBJECTIVE: Met with the patient in the evening of 06/30/2017. Overall, the patient was pleasant in the morning, quite confused, incontinent in the evening. REVIEW OF SYSTEMS: Ambulation is impaired with walker. No CV, , pulmonary, eye, ENT system symptoms on review. Reliability is poor. MENTAL STATUS EXAM: Oriented to herself, situation. Speech is coherent, pleasant, verbal. Abstraction fair, computation is impaired, language function intact, attention span short. Mood and affect still somewhat anxious, labile, but improved. LABORATORY DATA: Unchanged from initial note. IMPRESSION: Unchanged from initial note. PLAN: Continue current psychotropics. MAN Vidal CHAPA MD DR: ANTONIO/gianfranco JOB#: [id number] / [id number]
[2017-07-02 16:28] VITALS: BP 104/64
--- NOTE | 2017-07-02 19:35 | PN ---
DATE: 07/01/2017 This late entry of 07/01/2017 covers the elements not covered in my initial note 07/01/2017. HISTORY OF PRESENT ILLNESS: I met with the patient in the evening of 07/01/2017. Overall, the patient has been fairly cooperative on the unit, confused, slept 7-3/4 hours. REVIEW OF SYSTEMS: Ambulation impaired with walker. No CV, , pulmonary, eye system symptoms on review. MENTAL STATUS EXAM: Oriented to herself and situation. Speech coherent, pleasant, verbal, smiling as I met with her. Abstraction fair, computation impaired, language function intact. Short term memory is impaired. No suicidal or homicidal ideation. LABORATORY DATA: Reviewed. IMPRESSION: Unchanged from initial note. PLAN: Continue psychotropics mentioned in my initial note. MAN Vidal CHAPA MD DR: ANTONIO/gianfranco JOB#: [id number] / [id number]
[2017-07-02] MEDS: OMEGA-3 FATTY ACIDS/FISH OIL 1,000 MG CAPSULE. PO SCH (20:30)
[2017-07-02] MEDS: CHOLECALCIFEROL (VITAMIN D3) 1,000 UNIT TABLET PO SCH (20:30)
[2017-07-02] MEDS: QUEtiapine 100 MG TABLET. PO SCH (20:30)
[2017-07-02] MEDS: POLYETHYLENE GLYCOL 3350 17 GM PACKET. PO SCH (20:31)
[2017-07-02] MEDS ORDERED: ATORVASTATIN CALCIUM 20 MG TABLET PO SCH (21:00)
--- NOTE | 2017-07-02 21:14 | PDOC ---
Exam Note: Greg Note: Please also refer to the separate dictated note~for this date of service dictated separately.~Patient seen individually. Discussed the patient with Nursing staff reviewed the chart.~Reviewed interim history and current functioning. Reviewed vital signs,~Labs/ Radiology~and current medications noted below. Continue current treatment with the changes noted in the dictated addendum note Assessment: Vital Signs: Vital Signs Date Time Temp Pulse Resp B/P (MAP) Pulse Ox O2 Delivery O2 Flow Rate FiO2 07/02/17 20:31 89 104/64 07/02/17 16:28 97.8 20 94 07/01/17 16:32 Room Air I&O Intake and Output 07/02/17 07:00 Intake Total 740 ml Balance 740 ml Intake Oral 740 ml # Voids 1 Labs: Laboratory Tests Test 07/02/17 13:30 White Blood Count 6.9 x10^3/uL (4.0-11.0) Red Blood Count 4.69 x10^6/uL (3.50-5.40) Hemoglobin 12.9 g/dL (12.0-15.5) Hematocrit 38.5 % (36.0-47.0) Mean Corpuscular Volume 82 fL (79-100) Mean Corpuscular Hemoglobin 28 pg (25-35) Mean Corpuscular Hemoglobin Concent 33 g/dL (31-37) Red Cell Distribution Width 16.0 % (11.5-14.5) H Platelet Count 315 x10^3/uL (140-400) Neutrophils (%) (Auto) 79 % (31-73) H Lymphocytes (%) (Auto) 13 % (24-48) L Monocytes (%) (Auto) 7 % (0-9) Eosinophils (%) (Auto) 1 % (0-3) Basophils (%) (Auto) 1 % (0-3) Neutrophils # (Auto) 5.4 x10^3uL (1.8-7.7) Lymphocytes # (Auto) 0.9 x10^3/uL (1.0-4.8) L Monocytes # (Auto) 0.5 x10^3/uL (0.0-1.1) Eosinophils # (Auto) 0.1 x10^3/uL (0.0-0.7) Basophils # (Auto) 0.0 x10^3/uL (0.0-0.2) Sodium Level 138 mmol/L (136-145) Potassium Level 4.3 mmol/L (3.5-5.1) Chloride Level 102 mmol/L (98-107) Carbon Dioxide Level 25 mmol/L (21-32) Anion Gap 11 (6-14) Blood Urea Nitrogen 14 mg/dL (7-20) Creatinine 1.3 mg/dL (0.6-1.0) H Estimated GFR (Cockcroft-Gault) 40.2 BUN/Creatinine Ratio 11 (6-20) Glucose Level 124 mg/dL (70-99) H Calcium Level 9.8 mg/dL (8.5-10.1) Total Bilirubin 0.4 mg/dL (0.2-1.0) Aspartate Amino Transferase (AST) 19 U/L (15-37) Alanine Aminotransferase (ALT) 18 U/L (14-59) Alkaline Phosphatase 104 U/L (46-116) Total Protein 7.4 g/dL (6.4-8.2) Albumin 3.8 g/dL (3.4-5.0) Albumin/Globulin Ratio 1.1 (1.0-1.7) Current Medications: Meds: Current Medications Acetaminophen (Tylenol) 650 mg PRN Q6HRS PRN PO PAIN / TEMP; Start 05/19/17 at 16:15; Stop 05/19/17 at 18:42; Status DC Multi-Ingredient Ointment (Analgesic [place]) 1 missael PRN QID PRN TP MUSCLE PAIN Last administered on 06/20/17at 09:44; Start 05/19/17 at 16:15 Al Hydroxide/Mg Hydroxide (Mylanta Plus Xs) 15 ml PRN AFTMEALHC PRN PO DYSPEPSIA Last administered on 05/26/17at 20:02; Start 05/19/17 at 16:15 Magnesium Hydroxide (Milk Of Magnesia) 2,400 mg PRN QHS PRN PO CONSTIPATION Last administered on 06/25/17at 05:58; Start 05/19/17 at 16:15 Clonazepam (KlonoPIN) 1 mg BID PO Last administered on 05/29/17at 08:45; Start at 21:00; Stop 05/29/17 at 17:47; Status DC Donepezil HCl (Aricept) 5 mg QHS PO Last administered on 05/30/17at 20:24; Start 05/19/17 at 21:00; Stop 05/31/17 at 18:41; Status DC Lamotrigine (LaMICtal) 150 mg BID PO Last administered on 05/20/17at 20:17; Start 05/19/17 at 21:00; Stop 05/20/17 at 20:37; Status DC Memantine (Namenda) 5 mg DAILY PO Last administered on 06/07/17at 09:02; Start 05/20/17 at 09:00; Stop 06/07/17 at 18:46; Status DC Mirtazapine (Remeron) 15 mg QHS PO Last administered on 06/06/17at 20:36; Start 05/19/17 at 21:00; Stop 06/07/17 at 18:46; Status DC Quetiapine Fumarate (SEROquel) 400 mg QHS PO Last administered on 05/22/17at 19: 57; Start 05/19/17 at 21:00; Stop 05/23/17 at 18:44; Status DC Venlafaxine HCl (Effexor) 50 mg TID PO Last administered on 05/20/17at 14:00; Start 05/19/17 at 21:00; Stop 05/20/17 at 19:25; Status DC Acetaminophen (Tylenol) 650 mg PRN Q4HRS PRN PO PAIN Last administered on at 13:17; Start 05/19/17 at 18:15 Vitamin D (Vitamin D3) 3,000 unit QHS PO Last administered on 07/02/17at 20:30; Start 05/19/17 at 21:00 Fluticasone Propionate (Flonase) 2 spray PRN BID PRN NS ALLERGIES; Start at 18:15 Gabapentin (Neurontin) 100 mg PRN Q6HRS PRN PO ANXIETY; Start 05/19/17 at 18:15 ; Stop 05/20/17 at 19:25; Status DC Guaifenesin (Mucinex Er) 600 mg PRN BID PRN PO coughing; Start 05/19/17 at 18: 15 Ketoconazole (Nizoral 2% Shampoo) 1 missael QMONFR TP Last administered on at 14:11; Start 05/26/17 at 16:00 Lidocaine HCl (Uro-Jet) 5 missael PRN Q4HRS PRN TP PAIN; Start 05/19/17 at 18:15; Stop 05/19/17 at 20:05; Status DC Nystatin (Mycostatin) 1 missael PRN BID PRN TP itching; Start 05/19/17 at 18:15; Stop 06/02/17 at 11:13; Status DC Polyethylene Glycol (miraLAX) 17 gm HS PO Last administered on 07/02/17at 20:31 ; Start 05/19/17 at 21:00 Gabapentin (Neurontin) 600 mg QID PO Last administered on 05/20/17at 17:21; Start 05/19/17 at 21:00; Stop 05/20/17 at 19:25; Status DC Multivitamins/ Calcium (Thera-M Plus) 1 tab DAILY PO Last administered on at 07:59; Start 05/20/17 at 09:00; Stop 05/21/17 at 14:59; Status DC Fish Oil (Fish Oil) 1,000 mg QHS PO Last administered on 07/02/17at 20:30; Start 05/19/17 at 21:00 Ondansetron HCl (Zofran Odt) 4 mg PRN Q6HRS PRN PO NAUSEA; Start 05/19/17 at 19 :00 Non-Formulary Medication 1 drop QID EACHEYE ; Start 05/19/17 at 21:00; Stop at 21:00; Status DC Artificial Tears (Artificial Tears) 1 drop PRN QID PRN OU DRY EYE; Start at 19:00; Stop 05/20/17 at 14:59; Status DC Lidocaine HCl (Xylocaine 2% Topical 5gm Tube) 1 missael PRN Q4HRS PRN TP PAIN; Start 05/19/17 at 20:15; Stop 05/20/17 at 14:59; Status DC Lidocaine HCl (Xylocaine 2% Topical 5gm Tube) 1 missael PRN Q4HRS PRN TP PAIN Last administered on 05/23/17at 05:41; Start 05/20/17 at 14:59 Artificial Tears (Artificial Tears) 1 drop PRN QID PRN OU DRY EYE Last administered on 05/29/17 08:44; Start 05/20/17 at 14:59 Gabapentin (Neurontin) 600 mg TID PO Last administered on 06/01/17 19:24; Start 05/20/17 at 21:00; Stop 06/01/17 at 23:00; Status DC Duloxetine HCl (Cymbalta) 30 mg DAILY PO Last administered on 06/03/17 07:42; Start 05/21/17 at 09:00; Stop 06/03/17 at 18:33; Status DC Lamotrigine (LaMICtal) 150 mg DAILY PO Last administered on 05/29/17 08:40; Start 05/21/17 at 09:00; Stop 05/29/17 at 17:46; Status DC Lamotrigine (LaMICtal) 200 mg HS PO Last administered on 05/28/17 19:45; Start 05/20/17 at 21:00; Stop 05/29/17 at 17:46; Status DC Prenat Multivit/ [place]/Iron/Folic Ac (Multivitamin ) 1 tab DAILYBFRSUP PO Last administered on 07/02/17at 13:17; Start 05/21/17 at 17:00 Fosfomycin Tromethamine (Monurol) 3 gm 1X ONCE PO Last administered on at 15:00; Start 05/21/17 at 15:00; Stop 05/21/17 at 15:01; Status DC Quetiapine Fumarate (SEROquel) 300 mg QHS PO Last administered on 05/25/17 20: 28; Start 05/23/17 at 21:00; Stop 05/26/17 at 17:47; Status DC Nystatin (Nystop) 15 missael STK-MED ONCE TP Last administered on 05/24/17at 17:40; Start 05/24/17 at 17:40; Stop 05/24/17 at 17:41; Status DC Sodium Chloride (Saline [place] Nasal) 1 missael PRN Q1HR PRN NS NASAL CONGESTION Last administered on 05/27/17 20:38; Start 05/25/17 at 09:15 Quetiapine Fumarate (SEROquel) 200 mg QHS PO Last administered on 06/04/17at 20: 24; Start 05/26/17 at 21:00; Stop 06/05/17 at 17:39; Status DC Ketorolac Tromethamine (Acular) 1 drop Q8HRS OD Last administered on 06/03/17at 06:23; Start 05/29/17 at 14:00; Stop 06/03/17 at 13:59; Status DC Lamotrigine (LaMICtal) 200 mg BID PO Last administered on 06/03/17at 07:42; Start 05/29/17 at 21:00; Stop 06/03/17 at 18:33; Status DC Clonazepam (KlonoPIN) 1 mg DAILY PO Last administered on 06/01/17at 08:07; Start 05/30/17 at 09:00; Stop 06/01/17 at 12:25; Status DC Clonazepam (KlonoPIN) 0.75 mg QHS PO Last administered on 06/07/17at 19:56; Start 05/29/17 at 21:00; Stop 06/08/17 at 21:00; Status DC Donepezil HCl (Aricept) 10 mg QHS PO Last administered on 06/06/17at 20:22; Start 05/31/17 at 21:00; Stop 06/07/17 at 18:46; Status DC Clonazepam (KlonoPIN) 0.75 mg DAILY PO Last administered on 06/04/17at 07:52; Start 06/02/17 at 09:00; Stop 06/04/17 at 09:01; Status DC Clonazepam (KlonoPIN) 0.5 mg DAILY PO Last administered on 06/13/17at 08:01; Start 06/05/17 at 09:00; Stop 06/13/17 at 09:01; Status DC Clonazepam (KlonoPIN) 0.5 mg HS PO Last administered on 06/10/17at 20:35; Start 06/08/17 at 21:00; Stop 06/10/17 at 21:01; Status DC Ciprofloxacin (Cipro) 250 mg BID PO Last administered on 06/06/17at 08:20; Start 06/01/17 at 21:00; Stop 06/06/17 at 20:59; Status DC Gabapentin (Neurontin) 300 mg QID PO Last administered on 06/05/17at 19:42; Start 06/02/17 at 04:00; Stop 06/05/17 at 23:00; Status DC Gabapentin (Neurontin) 300 mg TID PO Last administered on 06/08/17at 20:23; Start 06/06/17 at 04:00; Stop 06/08/17 at 23:00; Status DC Gabapentin (Neurontin) 300 mg BID PO ; Start 06/09/17 at 04:00; Stop 06/09/17 at 04:00; Status DC Lactobacillus Rhamnosus (Culturelle) 1 cap BID PO Last administered on at 19:45; Start 06/02/17 at 21:00; Stop 06/24/17 at 07:51; Status DC Nystatin (Mycostatin) 1 missael BID TP ; Start 06/02/17 at 21:00; Stop 06/02/17 at 21: 07; Status DC Nystatin (Mycostatin) 1 missael BID TP ; Start 06/02/17 at 21:00; Stop 06/03/17 at 07 :47; Status DC Nystatin (Nystop) 1 missael BID TP Last administered on 07/02/17at 20:33; Start 02/08 at 09:00 Lamotrigine (LaMICtal) 150 mg HS PO Last administered on 06/05/17at 19:40; Start 06/03/17 at 21:00; Stop 06/06/17 at 00:00; Status DC Duloxetine HCl (Cymbalta) 60 mg DAILY PO Last administered on 06/07/17at 09:02; Start 06/04/17 at 09:00; Stop 06/07/17 at 18:46; Status DC Lamotrigine (LaMICtal) 100 mg DAILY PO Last administered on 06/04/17at 07:54; Start 06/04/17 at 09:00; Stop 06/04/17 at 09:50; Status DC Lamotrigine (LaMICtal) 200 mg DAILY PO Last administered on 07/02/17at 07:39; Start 06/05/17 at 09:00 Lamotrigine (LaMICtal) 200 mg HS PO Last administered on 07/02/17at 20:30; Start 06/06/17 at 21:00 Lamotrigine (LaMICtal) 100 mg 1X ONCE PO Last administered on 06/04/17at 10:00 ; Start 06/04/17 at 10:00; Stop 06/04/17 at 10:01; Status DC Quetiapine Fumarate (SEROquel) 250 mg QHS PO Last administered on 06/21/17at 20: 33; Start 06/05/17 at 21:00; Stop 06/22/17 at 19:07; Status DC Duloxetine HCl (Cymbalta) 30 mg DAILY PO Last administered on 06/10/17at 07:58; Start 06/08/17 at 09:00; Stop 06/11/17 at 08:59; Status DC Gabapentin (Neurontin) 300 mg BID PO Last administered on 06/14/17at 09:08; Start 06/10/17 at 09:00; Stop 06/14/17 at 18:36; Status DC Olanzapine (ZyPREXA ZYDIS) 2.5 mg PRN Q2HR PRN PO PSYCHOSIS Last administered on 06/29/17at 05:34; Start 06/09/17 at 18:45 Clonazepam (KlonoPIN) 0.25 mg DAILY PO Last administered on 06/16/17at 08:57; Start 06/14/17 at 09:00; Stop 06/16/17 at 09:00; Status DC Clonazepam (KlonoPIN) 0.5 mg HS PO Last administered on 06/16/17at 19:38; Start 06/13/17 at 21:00; Stop 06/16/17 at 21:00; Status DC Clonazepam (KlonoPIN) 0.25 mg BID PO Last administered on 06/20/17at 19:26; Start 06/17/17 at 09:00; Stop 06/21/17 at 08:59; Status DC Gabapentin (Neurontin) 300 mg DAILY PO Last administered on 06/17/17at 08:22; Start 06/15/17 at 09:00; Stop 06/18/17 at 08:59; Status DC Clonazepam (KlonoPIN) 0.25 mg DAILY PO Last administered on 06/23/17at 09:34; Start 06/21/17 at 09:00; Stop 06/24/17 at 08:59; Status DC Quetiapine Fumarate (SEROquel) 200 mg QHS PO Last administered on 07/02/17at 20: 30; Start 06/22/17 at 21:00 Quetiapine Fumarate (SEROquel) 25 mg 0900,1300 PO Last administered on at 12:08; Start 06/23/17 at 09:00; Stop 06/27/17 at 18:26; Status DC Quetiapine Fumarate (SEROquel) 25 mg DAILY@1300 PO Last administered on at 13:00; Start 06/28/17 at 13:00 Quetiapine Fumarate (SEROquel) 50 mg DAILY PO Last administered on 07/02/17at 07 :38; Start 06/28/17 at 09:00 Metoprolol Tartrate (Lopressor) 12.5 mg BID PO Last administered on 07/02/17at 20:31; Start 06/29/17 at 10:15 Atorvastatin Calcium (Lipitor) 20 mg QHS PO ; Start 07/02/17 at 21:00; Stop 03/11 at 21:00; Status DC Active Scripts Active Reported Lipitor (Atorvastatin Calcium) 20 Mg Tablet 20 Mg PO QHS Lamotrigine 200 Mg Tablet 200 Mg PO HS Lamotrigine 200 Mg Tablet 200 Mg PO DAILY Seroquel (Quetiapine Fumarate) 50 Mg Tablet 50 Mg PO DAILY Seroquel (Quetiapine Fumarate) 25 Mg Tablet 25 Mg PO DAILY@1300 Seroquel (Quetiapine Fumarate) 200 Mg Tablet 200 Mg PO QHS Multi Tablet (Pnv No.122/Iron/Folic Acid) 1 Each Tablet 1 Tab PO DAILYBFRSUP Vitamins ( Vits W-Ca,Fe,Fa(<1MG)) 1 Each Tablet 1 Tab PO DAILYBFRSUP Polyvinyl Alcohol 15 Ml Drops 1 Drop OU [place] 3 1,000 Mg Softgel ([place]-3 Fatty Acids/Fish Oil) 1 Each Capsule 1 Cap PO QHS Zyprexa Zydis (Olanzapine) 5 Mg Tab.rapdis 5 Mg PO PRN Q2HR PRN Nystatin 15 Gm Powder 15 Gm TP BID Analgesic [place] (Methyl Salicylate/Menthol) 28 Gm Oint...g. 1 Missael TP PRN QID PRN Milk Of Magnesia (Magnesium Hydroxide) 400 Mg/5 Ml Oral.susp 2,400 Mg PO PRN QHS PRN Mag-Al Plus Xs Suspension (Mag Hydrox/Al Hydrox/[place]) 30 Ml Oral.susp 15 Ml PO PRN AFTMEALHC PRN Lidocaine 5 Gm Cream..g. 1 Missael TP PRN Q4HRS PRN Vitamin D3 (Cholecalciferol (Vitamin D3)) 1,000 Unit Tablet 3,000 Unit PO QHS Systane 0.3-0.4% Eye Drops (Propylene Glycol/Peg 400) 15 Ml Drops 1 Drop EACHEYE QID Systane 0.3-0.4% Eye Drops (Propylene Glycol/Peg 400) 15 Ml Drops 1 Drop EACHEYE QIDPRN PRN Pain Reliever Plus Tablet (Aspirin/Acetaminophen/Caffeine) 1 Each Tablet 2 Each PO PRN PRN Ondansetron Hcl 4 Mg Tablet 4 Mg PO PRN Q6HRS PRN Nystatin 100,000 Unit/1 Ml Oral.susp 100,000 Unit PO Nystatin 15 Gm Cream..g. 1 Missael TP PRN BID PRN Miralax (Polyethylene Glycol 3350) 17 Gm Powd.pack 17 Gm PO HS Lidocaine Hcl 5 Ml Jel..ml. 5 Ml TOP PRN Q4HRS Ketoconazole 120 Ml Shampoo 1 Missael TP TWICE WEEKLY Ibuprofen 100 Mg/5 Ml Oral.susp 200 Mg PO PRN TID PRN Hydroxyzine Hcl 25 Mg Tablet 25 Mg PO PRN Q4HRS PRN Hydrocortisone 453.6 Gm Oint...g. 1 Missael TP PRN BID PRN Epa-Dha 720 Softgel ([place]-3/Dha/Epa/Fish Oil) 1 Each Capsule 1 Each PO QHS Donepezil Hcl 5 Mg Tablet 5 Mg PO QHS Saline Nasal [place] (Sodium Chloride) 30 Ml [place] 1 Spr NS PRN PRN Tylenol (Acetaminophen) 325 Mg Tablet 650 Mg PO PRN Q4HRS PRN Seroquel (Quetiapine Fumarate) 400 Mg Tablet 400 Mg PO HS Mirtazapine 15 Mg Tablet 15 Mg PO QHS Lamotrigine 150 Mg Tablet 150 Mg PO BID Fluticasone Propionate Nasal [place] (Fluticasone Propionate) 16 Gm [place].susp 2 [place] NS PRN BID PRN Effexor Xr (Venlafaxine Hcl) 150 Mg Cap.er.24h 150 Mg PO DAILY Multi Vitamin Daily (Multivitamin) 1 Each Tablet 1 Each PO DAILY Mucinex (Guaifenesin) 600 Mg Tablet.er 600 Mg PO PRN BID PRN Namenda (Memantine Hcl) 10 Mg Tablet 5 Mg PO DAILY Gabapentin 600 Mg Tablet 600 Mg PO QID Gabapentin 100 Mg Capsule 100 Mg PO PRN Q6HRS Clonazepam 1 Mg Tablet 1 Mg PO BID I have reviewed the current psychotropics carefully including drug interactions. Risk benefit ratio favors no change other than as noted in my dictated progress note. Diagnosis: Problems: (1) Major depression (2) Anxiety (3) Bipolar affective disorder, mixed (4) Anxiety disorder (5) Major depressive disorder, recurrent episode (6) Impulse control disorder BRIAN CHAPA MD Jul 02, 2017 21:14
[2017-07-03] MEDS ORDERED: METO25TA4 PO (01:09)
[2017-07-03] MEDS: ACETAMINOPHEN 325 MG TABLET PO PRN (04:49)
[2017-07-03 06:06] VITALS: BP 113/58
[2017-07-03] MEDS: QUEtiapine 50 MG TABLET. PO SCH (09:02)
[2017-07-03] MEDS: lamoTRIgine 100 MG TABLET. PO SCH (09:02)
[2017-07-03 09:03] VITALS: BP 113/58
[2017-07-03] MEDS: METOPROLOL TART IMMED RELEASE 25 MG TABLET PO SCH (09:03)
[2017-07-03] MEDS: NYSTATIN TOPICAL POWDER 15GM BOTTLE. TP SCH (09:04)
[2017-07-03] MEDS: QUEtiapine 25 MG TABLET. PO SCH (12:17)
--- NOTE | 2017-07-03 20:17 | PDOC ---
Exam Note: Greg Note: Please also refer to the separate dictated note~for this date of service dictated separately.~Patient seen individually. Discussed the patient with Nursing staff reviewed the chart.~Reviewed interim history and current functioning. Reviewed vital signs,~Labs/ Radiology~and current medications noted below. Continue current treatment with the changes noted in the dictated addendum note Assessment: Vital Signs: Vital Signs Date Time Temp Pulse Resp B/P (MAP) Pulse Ox O2 Delivery O2 Flow Rate FiO2 07/03/17 09:03 76 113/58 07/03/17 06:06 97.6 18 96 07/01/17 16:32 Room Air I&O Intake and Output 07/03/17 07:00 Intake Total 900 ml Balance 900 ml Intake Oral 900 ml # Voids 1 Current Medications: Meds: Current Medications Acetaminophen (Tylenol) 650 mg PRN Q6HRS PRN PO PAIN / TEMP; Start 05/19/17 at 16:15; Stop 05/19/17 at 18:42; Status DC Multi-Ingredient Ointment (Analgesic [place]) 1 missael PRN QID PRN TP MUSCLE PAIN Last administered on 06/20/17at 09:44; Start 05/19/17 at 16:15; Stop 07/03/17 at 14:22; Status DC Al Hydroxide/Mg Hydroxide (Mylanta Plus Xs) 15 ml PRN AFTMEALHC PRN PO DYSPEPSIA Last administered on 05/26/17at 20:02; Start 05/19/17 at 16:15; Stop 04/10 at 14:22; Status DC Magnesium Hydroxide (Milk Of Magnesia) 2,400 mg PRN QHS PRN PO CONSTIPATION Last administered on 06/25/17at 05:58; Start 05/19/17 at 16:15; Stop 07/03/17 at 14:22; Status DC Clonazepam (KlonoPIN) 1 mg BID PO Last administered on 05/29/17at 08:45; Start at 21:00; Stop 05/29/17 at 17:47; Status DC Donepezil HCl (Aricept) 5 mg QHS PO Last administered on 05/30/17at 20:24; Start 05/19/17 at 21:00; Stop 05/31/17 at 18:41; Status DC Lamotrigine (LaMICtal) 150 mg BID PO Last administered on 05/20/17at 20:17; Start 05/19/17 at 21:00; Stop 05/20/17 at 20:37; Status DC Memantine (Namenda) 5 mg DAILY PO Last administered on 06/07/17at 09:02; Start 05/20/17 at 09:00; Stop 06/07/17 at 18:46; Status DC Mirtazapine (Remeron) 15 mg QHS PO Last administered on 06/06/17at 20:36; Start 05/19/17 at 21:00; Stop 06/07/17 at 18:46; Status DC Quetiapine Fumarate (SEROquel) 400 mg QHS PO Last administered on 05/22/17at 19: 57; Start 05/19/17 at 21:00; Stop 05/23/17 at 18:44; Status DC Venlafaxine HCl (Effexor) 50 mg TID PO Last administered on 05/20/17at 14:00; Start 05/19/17 at 21:00; Stop 05/20/17 at 19:25; Status DC Acetaminophen (Tylenol) 650 mg PRN Q4HRS PRN PO PAIN Last administered on at 04:49; Start 05/19/17 at 18:15; Stop 07/03/17 at 14:22; Status DC Vitamin D (Vitamin D3) 3,000 unit QHS PO Last administered on 07/02/17at 20:30; Start 05/19/17 at 21:00; Stop 07/03/17 at 14:22; Status DC Fluticasone Propionate (Flonase) 2 spray PRN BID PRN NS ALLERGIES; Start at 18:15; Stop 07/03/17 at 14:22; Status DC Gabapentin (Neurontin) 100 mg PRN Q6HRS PRN PO ANXIETY; Start 05/19/17 at 18:15 ; Stop 05/20/17 at 19:25; Status DC Guaifenesin (Mucinex Er) 600 mg PRN BID PRN PO coughing; Start 05/19/17 at 18: 15; Stop 07/03/17 at 14:22; Status DC Ketoconazole (Nizoral 2% Shampoo) 1 missael QMONFR TP Last administered on at 14:11; Start 05/26/17 at 16:00; Stop 07/03/17 at 14:22; Status DC Lidocaine HCl (Uro-Jet) 5 missael PRN Q4HRS PRN TP PAIN; Start 05/19/17 at 18:15; Stop 05/19/17 at 20:05; Status DC Nystatin (Mycostatin) 1 missael PRN BID PRN TP itching; Start 05/19/17 at 18:15; Stop 06/02/17 at 11:13; Status DC Polyethylene Glycol (miraLAX) 17 gm HS PO Last administered on 07/02/17at 20:31 ; Start 05/19/17 at 21:00; Stop 07/03/17 at 14:22; Status DC Gabapentin (Neurontin) 600 mg QID PO Last administered on 05/20/17at 17:21; Start 05/19/17 at 21:00; Stop 05/20/17 at 19:25; Status DC Multivitamins/ Calcium (Thera-M Plus) 1 tab DAILY PO Last administered on at 07:59; Start 05/20/17 at 09:00; Stop 05/21/17 at 14:59; Status DC Fish Oil (Fish Oil) 1,000 mg QHS PO Last administered on 07/02/17at 20:30; Start 05/19/17 at 21:00; Stop 07/03/17 at 14:22; Status DC Ondansetron HCl (Zofran Odt) 4 mg PRN Q6HRS PRN PO NAUSEA; Start 05/19/17 at 19 :00; Stop 07/03/17 at 14:22; Status DC Non-Formulary Medication 1 drop QID EACHEYE ; Start 05/19/17 at 21:00; Stop at 21:00; Status DC Artificial Tears (Artificial Tears) 1 drop PRN QID PRN OU DRY EYE; Start at 19:00; Stop 05/20/17 at 14:59; Status DC Lidocaine HCl (Xylocaine 2% Topical 5gm Tube) 1 missael PRN Q4HRS PRN TP PAIN; Start 05/19/17 at 20:15; Stop 05/20/17 at 14:59; Status DC Lidocaine HCl (Xylocaine 2% Topical 5gm Tube) 1 missael PRN Q4HRS PRN TP PAIN Last administered on 05/23/17 05:41; Start 05/20/17 at 14:59; Stop 07/03/17 at 14:22 ; Status DC Artificial Tears (Artificial Tears) 1 drop PRN QID PRN OU DRY EYE Last administered on 05/29/17at 08:44; Start 05/20/17 at 14:59; Stop 07/03/17 at 14:22 ; Status DC Gabapentin (Neurontin) 600 mg TID PO Last administered on 06/01/17at 19:24; Start 05/20/17 at 21:00; Stop 06/01/17 at 23:00; Status DC Duloxetine HCl (Cymbalta) 30 mg DAILY PO Last administered on 06/03/17at 07:42; Start 05/21/17 at 09:00; Stop 06/03/17 at 18:33; Status DC Lamotrigine (LaMICtal) 150 mg DAILY PO Last administered on 05/29/17at 08:40; Start 05/21/17 at 09:00; Stop 05/29/17 at 17:46; Status DC Lamotrigine (LaMICtal) 200 mg HS PO Last administered on 05/28/17 19:45; Start 05/20/17 at 21:00; Stop 05/29/17 at 17:46; Status DC Prenat Multivit/ Pax/Iron/Folic Ac (Multivitamin ) 1 tab DAILYBFRSUP PO Last administered on 07/02/17at 13:17; Start 05/21/17 at 17:00; Stop at 14:22; Status DC Fosfomycin Tromethamine (Monurol) 3 gm 1X ONCE PO Last administered on at 15:00; Start 05/21/17 at 15:00; Stop 05/21/17 at 15:01; Status DC Quetiapine Fumarate (SEROquel) 300 mg QHS PO Last administered on 05/25/17at 20: 28; Start 05/23/17 at 21:00; Stop 05/26/17 at 17:47; Status DC Nystatin (Nystop) 15 imssael STK-MED ONCE TP Last administered on 05/24/17at 17:40; Start 05/24/17 at 17:40; Stop 05/24/17 at 17:41; Status DC Sodium Chloride (Saline Mist Nasal) 1 missael PRN Q1HR PRN NS NASAL CONGESTION Last administered on 05/27/17at 20:38; Start 05/25/17 at 09:15; Stop 07/03/17 at 14 :22; Status DC Quetiapine Fumarate (SEROquel) 200 mg QHS PO Last administered on 06/04/17at 20: 24; Start 05/26/17 at 21:00; Stop 06/05/17 at 17:39; Status DC Ketorolac Tromethamine (Acular) 1 drop Q8HRS OD Last administered on 06/03/17at 06:23; Start 05/29/17 at 14:00; Stop 06/03/17 at 13:59; Status DC Lamotrigine (LaMICtal) 200 mg BID PO Last administered on 06/03/17at 07:42; Start 05/29/17 at 21:00; Stop 06/03/17 at 18:33; Status DC Clonazepam (KlonoPIN) 1 mg DAILY PO Last administered on 06/01/17at 08:07; Start 05/30/17 at 09:00; Stop 06/01/17 at 12:25; Status DC Clonazepam (KlonoPIN) 0.75 mg QHS PO Last administered on 06/07/17at 19:56; Start 05/29/17 at 21:00; Stop 06/08/17 at 21:00; Status DC Donepezil HCl (Aricept) 10 mg QHS PO Last administered on 06/06/17at 20:22; Start 05/31/17 at 21:00; Stop 06/07/17 at 18:46; Status DC Clonazepam (KlonoPIN) 0.75 mg DAILY PO Last administered on 06/04/17at 07:52; Start 06/02/17 at 09:00; Stop 06/04/17 at 09:01; Status DC Clonazepam (KlonoPIN) 0.5 mg DAILY PO Last administered on 06/13/17at 08:01; Start 06/05/17 at 09:00; Stop 06/13/17 at 09:01; Status DC Clonazepam (KlonoPIN) 0.5 mg HS PO Last administered on 06/10/17at 20:35; Start 06/08/17 at 21:00; Stop 06/10/17 at 21:01; Status DC Ciprofloxacin (Cipro) 250 mg BID PO Last administered on 06/06/17at 08:20; Start 06/01/17 at 21:00; Stop 06/06/17 at 20:59; Status DC Gabapentin (Neurontin) 300 mg QID PO Last administered on 06/05/17at 19:42; Start 06/02/17 at 04:00; Stop 06/05/17 at 23:00; Status DC Gabapentin (Neurontin) 300 mg TID PO Last administered on 06/08/17at 20:23; Start 06/06/17 at 04:00; Stop 06/08/17 at 23:00; Status DC Gabapentin (Neurontin) 300 mg BID PO ; Start 06/09/17 at 04:00; Stop 06/09/17 at 04:00; Status DC Lactobacillus Rhamnosus (Culturelle) 1 cap BID PO Last administered on at 19:45; Start 06/02/17 at 21:00; Stop 06/24/17 at 07:51; Status DC Nystatin (Mycostatin) 1 missael BID TP ; Start 06/02/17 at 21:00; Stop 06/02/17 at 21: 07; Status DC Nystatin (Mycostatin) 1 missael BID TP ; Start 06/02/17 at 21:00; Stop 06/03/17 at 07 :47; Status DC Nystatin (Nystop) 1 missael BID TP Last administered on 07/03/17at 09:04; Start 02/08 at 09:00; Stop 07/03/17 at 14:22; Status DC Lamotrigine (LaMICtal) 150 mg HS PO Last administered on 06/05/17at 19:40; Start 06/03/17 at 21:00; Stop 06/06/17 at 00:00; Status DC Duloxetine HCl (Cymbalta) 60 mg DAILY PO Last administered on 06/07/17at 09:02; Start 06/04/17 at 09:00; Stop 06/07/17 at 18:46; Status DC Lamotrigine (LaMICtal) 100 mg DAILY PO Last administered on 06/04/17at 07:54; Start 06/04/17 at 09:00; Stop 06/04/17 at 09:50; Status DC Lamotrigine (LaMICtal) 200 mg DAILY PO Last administered on 07/03/17at 09:02; Start 06/05/17 at 09:00; Stop 07/03/17 at 14:22; Status DC Lamotrigine (LaMICtal) 200 mg HS PO Last administered on 07/02/17at 20:30; Start 06/06/17 at 21:00; Stop 07/03/17 at 14:22; Status DC Lamotrigine (LaMICtal) 100 mg 1X ONCE PO Last administered on 06/04/17at 10:00 ; Start 06/04/17 at 10:00; Stop 06/04/17 at 10:01; Status DC Quetiapine Fumarate (SEROquel) 250 mg QHS PO Last administered on 06/21/17at 20: 33; Start 06/05/17 at 21:00; Stop 06/22/17 at 19:07; Status DC Duloxetine HCl (Cymbalta) 30 mg DAILY PO Last administered on 06/10/17at 07:58; Start 06/08/17 at 09:00; Stop 06/11/17 at 08:59; Status DC Gabapentin (Neurontin) 300 mg BID PO Last administered on 06/14/17at 09:08; Start 06/10/17 at 09:00; Stop 06/14/17 at 18:36; Status DC Olanzapine (ZyPREXA ZYDIS) 2.5 mg PRN Q2HR PRN PO PSYCHOSIS Last administered on 06/29/17at 05:34; Start 06/09/17 at 18:45; Stop 07/03/17 at 14:22; Status DC Clonazepam (KlonoPIN) 0.25 mg DAILY PO Last administered on 06/16/17at 08:57; Start 06/14/17 at 09:00; Stop 06/16/17 at 09:00; Status DC Clonazepam (KlonoPIN) 0.5 mg HS PO Last administered on 06/16/17at 19:38; Start 06/13/17 at 21:00; Stop 06/16/17 at 21:00; Status DC Clonazepam (KlonoPIN) 0.25 mg BID PO Last administered on 06/20/17at 19:26; Start 06/17/17 at 09:00; Stop 06/21/17 at 08:59; Status DC Gabapentin (Neurontin) 300 mg DAILY PO Last administered on 06/17/17at 08:22; Start 06/15/17 at 09:00; Stop 06/18/17 at 08:59; Status DC Clonazepam (KlonoPIN) 0.25 mg DAILY PO Last administered on 06/23/17at 09:34; Start 06/21/17 at 09:00; Stop 06/24/17 at 08:59; Status DC Quetiapine Fumarate (SEROquel) 200 mg QHS PO Last administered on 07/02/17at 20: 30; Start 06/22/17 at 21:00; Stop 07/03/17 at 14:22; Status DC Quetiapine Fumarate (SEROquel) 25 mg 0900,1300 PO Last administered on at 12:08; Start 06/23/17 at 09:00; Stop 06/27/17 at 18:26; Status DC Quetiapine Fumarate (SEROquel) 25 mg DAILY@1300 PO Last administered on at 12:17; Start 06/28/17 at 13:00; Stop 07/03/17 at 14:22; Status DC Quetiapine Fumarate (SEROquel) 50 mg DAILY PO Last administered on 07/03/17at 09 :02; Start 06/28/17 at 09:00; Stop 07/03/17 at 14:22; Status DC Metoprolol Tartrate (Lopressor) 12.5 mg BID PO Last administered on 07/03/17at 09:03; Start 06/29/17 at 10:15; Stop 07/03/17 at 14:22; Status DC Atorvastatin Calcium (Lipitor) 20 mg QHS PO ; Start 07/02/17 at 21:00; Stop 03/11 at 21:00; Status DC Active Scripts Active Reported Metoprolol Tartrate 25 Mg Tablet 12.5 Mg PO BID Lamotrigine 200 Mg Tablet 200 Mg PO HS Lamotrigine 200 Mg Tablet 200 Mg PO DAILY Seroquel (Quetiapine Fumarate) 50 Mg Tablet 50 Mg PO DAILY Seroquel (Quetiapine Fumarate) 25 Mg Tablet 25 Mg PO DAILY@1300 Seroquel (Quetiapine Fumarate) 200 Mg Tablet 200 Mg PO QHS Multi Tablet (Pnv No.122/Iron/Folic Acid) 1 Each Tablet 1 Tab PO DAILYBFRSUP [place] 3 1,000 Mg Softgel ([place]-3 Fatty Acids/Fish Oil) 1 Each Capsule 1 Cap PO QHS Zyprexa Zydis (Olanzapine) 5 Mg Tab.rapdis 2.5 Mg PO PRN Q2HR PRN MDD NTE 7.5mg in 24hrs dissolve in mouth Nystatin 15 Gm Powder 1 Missael TP BID Analgesic [place] (Methyl Salicylate/Menthol) 28 Gm Oint...g. 1 Missael TP PRN QID PRN Milk Of Magnesia (Magnesium Hydroxide) 400 Mg/5 Ml Oral.susp 2,400 Mg PO PRN QHS PRN Mag-Al Plus Xs Suspension (Mag Hydrox/Al Hydrox/Simeth) 30 Ml Oral.susp 15 Ml PO PRN AFTMEALHC PRN Lidocaine 5 Gm Cream..g. 1 Missael TP PRN Q4HRS PRN Vitamin D3 (Cholecalciferol (Vitamin D3)) 1,000 Unit Tablet 3,000 Unit PO QHS Systane 0.3-0.4% Eye Drops (Propylene Glycol/Peg 400) 15 Ml Drops 1 Drop EACHEYE QIDPRN PRN Ondansetron Hcl 4 Mg Tablet 4 Mg PO PRN Q6HRS PRN Miralax (Polyethylene Glycol 3350) 17 Gm Powd.pack 17 Gm PO HS Ketoconazole 120 Ml Shampoo 1 Missael TP QMONFR Saline Nasal [place] (Sodium Chloride) 30 Ml [place] 1 Spr NS PRN Q1HR PRN Tylenol (Acetaminophen) 325 Mg Tablet 650 Mg PO PRN Q4HRS PRN Fluticasone Propionate Nasal [place] (Fluticasone Propionate) 16 Gm [place].susp 2 [place] NS PRN BID PRN Mucinex (Guaifenesin) 600 Mg Tablet.er 600 Mg PO PRN BID PRN I have reviewed the current psychotropics carefully including drug interactions. Risk benefit ratio favors no change other than as noted in my dictated progress note. Diagnosis: Problems: (1) Major depression (2) Anxiety (3) Bipolar affective disorder, mixed (4) Anxiety disorder (5) Major depressive disorder, recurrent episode (6) Impulse control disorder BRIAN CHAPA MD Jul 03, 2017 20:17
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
--- NOTE | 2017-07-04 18:38 | DS ---
DATE OF DISCHARGE: 07/03/2017 DISCHARGE SUMMARY/PSYCHIATRIC PROGRESS NOTE This is a late entry for 07/03/2017, covers elements not covered in my initial note of 07/03/2017. REASON FOR ADMISSION: Please refer to the admission history for details. Briefly, the patient is a 72-year-old female referred to us from the [facility] unit of the [facility] in [place], [place] where she presented from the [facility] where she was residing. She had been increasingly psychotic, paranoid, confused within the diagnosis of her bipolar disorder and past history of ECT x 20, symptoms of normal pressure hydrocephalus amongst her other problems. Family felt she was overmedicated with polypharmacy. She had gone in ambulatory and was essentially in a wheelchair. They affected this transfer to us for simplification of her psychotropics and psychiatric stabilization. SIGNIFICANT FINDINGS AND CLINICAL COURSE: Following admission, the patient was seen daily individually by myself, followed medically per Dr. Ch/Dr. Lezama. The patient was extremely complex given that she was on multitude of psychotropics, all with limited psychotherapeutic benefits and added impairment of her gait, which was already compromised due to her dementia/NPH. We gradually tapered off her unessential psychotropics and she was back ambulating with a walker. She still continued to have some mood lability and anxiety and worsening confusion, but overall was much improved. REVIEW OF SYSTEMS: Prior to discharge on 07/03/2017, ambulation impaired with walker. No CV, , pulmonary, eye, ENT system symptoms on review. MENTAL STATUS EXAM: Oriented to herself and situation. Speech coherent, abstraction fair, computation impaired, language function intact, attention span short. Mood and affect, much less anxious. No suicidal or homicidal ideation prior to discharge, though the confusion persisted. FINAL DIAGNOSES: Bipolar 1 disorder, depressed, in partial remission; major neurocognitive disorder, multifactorial, Alzheimer, vascular, possibly due to normal pressure hydrocephalus with depression, behavioral disturbance, latter in partial remission; anxiety disorder, unspecified; impulse control disorder, unspecified; history of post traumatic stress disorder. Rest unchanged from admission. DISCHARGE MEDICATIONS: Please refer to the MRAD. DISCHARGE INSTRUCTIONS: Outpatient psychiatric and medical followup back as arranged by social service staff. Time for discharge day management greater than 30 minutes. MAN Vidal CHAPA MD DR: ANTONIO/gianfranco JOB#: [id number] / [id number]
== END 2017-07-03 13:10 | DRG 885 ==
LOC: GEROPSY 15:08
PROVIDERS: ADMIT Psychiatry & Neurology Psychiatry; ATTEND Psychiatry & Neurology Psychiatry
DX: F31.64 Bipolar disorder, current episode mixed, severe, with psychotic features (principal); G30.9 Alzheimer's disease, unspecified; F02.81 Dementia in other diseases classified elsewhere, unspecified severity, with behavioral disturbance; G91.2 (Idiopathic) normal pressure hydrocephalus; N39.0 Urinary tract infection, site not specified; G83.9 Paralytic syndrome, unspecified; F01.50 Vascular dementia, unspecified severity, without behavioral disturbance, psychotic disturbance, mood disturbance, and anxiety; E61.1 Iron deficiency; E78.5 Hyperlipidemia, unspecified; F09 Unspecified mental disorder due to known physiological condition; F41.1 Generalized anxiety disorder; F43.10 Post-traumatic stress disorder, unspecified; F63.9 Impulse disorder, unspecified; Z66 Do not resuscitate; Z91.410 Personal history of adult physical and sexual abuse; Z91.81 History of falling; Z91.5 Personal history of self-harm; Z88.6 Allergy status to analgesic agent; Z88.1 Allergy status to other antibiotic agents; Z88.8 Allergy status to other drugs, medicaments and biological substances
CPT/HCPCS: 36415; 70450; 80053; 80061; 81001; 82306; 82607; 83036; 83540; 83550; 83735; 84436; 84443; 84480; 85025; 86593; 87086; 87186; 93005; 97110; 97112; 97116; 97530; 97535

== ENCOUNTER 2018-12-02 03:14 | Inpatient (IN) | payer MEDICARE ==
[~2018-12-02] VITALS: Ht 165.1 cm; Wt 60.8 kg
[2018-12-02 03:00] VITALS: BP 124/79
[~2018-12-02 03:14] MED LIST: ACET325T9 PO; ASPI1TAB62 PO; ATOR20TA PO; CHOL10003 PO; CLON1TAB11 PO; DONE5TAB7 PO; FLUT16SP21 NS; GABA-585 PO; GABA600T7 PO; GUAI600T47 PO; HYDR25TA PO; HYDR453.4 TP; IBUP100O25 PO; KETO120S2 TP; LAMO150T2 PO; LAMO200T2 PO; LIDO5CRE18 TP; LIDO5JEL3 TOP; MAG30ORA2 PO; MAGN400O7 PO; MEMA10TA PO; METH29OI TP; METO25TA4 PO; MIRT15TA3 PO; MULT-245 PO; NYST1000 PO; NYST15CR TP; NYST15PO9 TP; OLAN5TAB5 PO; OMEG-33 PO; OMEG-44 PO; ONDA4TAB11 PO; PNV1TABL78 PO; POLY15DR20 OU; POLY17PO5 PO; PREN1TAB58 PO; PROP15DR40 EACHEYE; QUET200T4 PO; QUET25TA5 PO; QUET400T4 PO; QUET50TA5 PO; SODI30SP NS; VENL150C PO
[2018-12-02] MEDS ORDERED: MAGNESIUM HYDROXIDE 2,400 MG/30 ML ORAL.SUSP. PO PRN ×2 (03:30→06:30)
[2018-12-02] MEDS ORDERED: MAG HYDROX/AL HYDROX/SIMETH 30 ML ORAL.SUSP PO PRN ×2 (03:30→06:30)
[2018-12-02] MEDS ORDERED: CHLO25AM IJ (04:10)
[2018-12-02] MEDS ORDERED: MAGN400O7 PO (04:10)
[2018-12-02] MEDS ORDERED: CLON1TAB PO (04:10)
[2018-12-02] MEDS ORDERED: DOCU-109 PO (04:10)
[2018-12-02] MEDS ORDERED: DESV50TA PO (04:10)
[2018-12-02] MEDS ORDERED: CARB1TAB2 PO (04:10)
[2018-12-02] MEDS ORDERED: MAG355OR12 PO (04:10)
[2018-12-02] MEDS ORDERED: CHLO25TA4 PO ×2 (04:10)
[2018-12-02] MEDS ORDERED: LACT10SO35 PO (04:10)
[2018-12-02] MEDS ORDERED: CALC500T31 PO (04:10)
[2018-12-02] MEDS ORDERED: LORA2VIA IJ (04:10)
[2018-12-02] MEDS ORDERED: IBUP400T18 PO (04:10)
[2018-12-02] MEDS ORDERED: ACET-1574 PO (04:10)
[2018-12-02] MEDS ORDERED: ASEN5TAB7 SL (04:10)
[2018-12-02] MEDS ORDERED: CARB1DRO OP ×2 (04:10)
[2018-12-02] MEDS ORDERED: BISA10SU55 RC (04:10)
[2018-12-02] MEDS ORDERED: METO25TA4 PO (04:10)
[2018-12-02] MEDS ORDERED: GABA-586 PO (04:10)
[2018-12-02] MEDS ORDERED: CLON1TAB11 PO (04:10)
[2018-12-02] MEDS ORDERED: ASEN10TA9 SL (04:10)
[2018-12-02] MEDS ORDERED: HYDR50TA PO (04:10)
[2018-12-02] MEDS ORDERED: CHOL10003 PO (04:10)
[2018-12-02 05:54] VITALS: BP 111/69
[2018-12-02] MEDS ORDERED: ACETAMINOPHEN 325 MG TABLET PO PRN (06:00)
[2018-12-02] MEDS ORDERED: IBUPROFEN 400 MG TABLET. PO PRN (06:30)
[2018-12-02] MEDS ORDERED: hydrOXYzine HCL 25 MG TABLET PO PRN (06:30)
[2018-12-02] MEDS ORDERED: BISACODYL 10 MG SUPP.RECT RC PRN (06:30)
[2018-12-02] MEDS ORDERED: clonazePAM 1 MG TABLET PO PRN (06:30)
[2018-12-02] MEDS ORDERED: CALCIUM CARBONATE 500 MG TABLET PO PRN (06:30)
[2018-12-02] MEDS ORDERED: CALCIUM CARBONATE 500 MG TAB.CHEW PO PRN (06:40)
[2018-12-02] MEDS ORDERED: chlorproMAZINE HCL 25 MG TABLET PO PRN (07:00)
[2018-12-02] MEDS ORDERED: POLYVINYL ALCOHOL 1.4% OPHTH SOLUTION 15ML BOTTLE. OU PRN (07:30)
[2018-12-02 07:52] LABS: BASO % 0 % (0-3); EOS % 1 % (0-3); HEMATOCRIT 40.1 % (36.0-47.0); HEMOGLOBIN 12.9 g/dL (12.0-15.5); LYMPH # 0.8 x10^3/uL (1.0-4.8); LYMPH % 13 % (24-48); MEAN CORPUSCULAR HEMOGLOBIN 27 pg (25-35); MEAN CORPUSCULAR HGB CONC 32 g/dL (31-37); MEAN CORPUSCULAR VOLUME 84 fL (79-100); MONO # 0.4 x10^3/uL (0.0-1.1); MONO % 7 % (0-9); NEUT # 4.9 x10^3uL (1.8-7.7); NEUT % 79 % (31-73); PLATELET COUNT 282 x10^3/uL (140-400); RED BLOOD COUNT 4.77 x10^6/uL (3.50-5.40); RED CELL DISTRIBUTION WIDTH 15.8 % (11.5-14.5); WHITE BLOOD COUNT 6.2 x10^3/uL (4.0-11.0)
[2018-12-02 08:00] LABS: ALBUMIN 3.3 g/dL (3.4-5.0); CALCIUM 9.4 mg/dL (8.5-10.1); GFR 54.2; POTASSIUM 4.2 mmol/L (3.5-5.1); TOTAL BILIRUBIN 0.3 mg/dL (0.2-1.0); TOTAL PROTEIN 6.6 g/dL (6.4-8.2)
[2018-12-02] MEDS ORDERED: NON FORMULARY ITEM (Asenapine Maleate (Saphris) 10 MG) SL SCH (09:00)
[2018-12-02] MEDS ORDERED: CARBIDOPA/LEVODOPA 25/100MG TABLET PO SCH (09:00)
[2018-12-02] MEDS: NON FORMULARY ITEM (Asenapine Maleate (Saphris) 5 MG) SL SCH ×2 (09:00→20:24)
[2018-12-02] MEDS: DOCUSATE SODIUM 100 MG CAPSULE PO SCH (09:19)
[2018-12-02] MEDS: LACTULOSE 20 GM/30 ML SOLUTION. PO SCH (09:19)
[2018-12-02] MEDS: clonazePAM 1 MG TABLET PO SCH ×3 (09:19→20:22)
[2018-12-02] MEDS: POLYVINYL ALCOHOL 1.4% OPHTH SOLUTION 15ML BOTTLE. OU SCH ×3 (09:19→20:22)
[2018-12-02] MEDS: METOPROLOL TART IMMED RELEASE 25 MG TABLET PO SCH ×2 (09:20→20:40)
[2018-12-02] MEDS: GABAPENTIN 300 MG CAPSULE. PO SCH ×3 (09:20→20:22)
[2018-12-02] MEDS: DESVENLAFAXINE SUCCINATE 25 MG TAB.ER.24H PO SCH ×2 (09:24→20:21)
[2018-12-02] MEDS: chlorproMAZINE HCL 25 MG TABLET PO SCH ×3 (09:25→20:21)
[2018-12-02] MEDS: CHOLECALCIFEROL (VITAMIN D3) 1,000 UNIT TABLET PO SCH (09:25)
[2018-12-02] MEDS: rOPINIRole 0.25 MG TABLET. PO SCH ×3 (10:34→20:21)
[2018-12-02 10:48] LABS: THYROID STIM HORMONE (TSH) 2.053 uIU/mL (0.358-3.740)
[2018-12-02] MEDS: CARBIDOPA/LEVODOPA 25/100MG TABLET PO SCH ×4 (12:04→20:24)
[2018-12-02 16:08] LABS: THYROXINE 7.4 ug/dL (4.5-12.0)
[2018-12-02 16:22] VITALS: BP 93/56
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
--- NOTE | 2018-12-02 22:26 | PDOC ---
Exam Note: Greg Note: Please also refer to the separate dictated note~for this date of service dictated separately. Discussed the patient with Nursing staff reviewed the chart.~Reviewed interim history and current functioning. Reviewed vital signs,~Labs/ Radiology~and current medications noted below. Continue current treatment with the changes noted in the dictated addendum note Assessment: Vital Signs/I&O: Vital Signs Date Time Temp Pulse Resp B/P (MAP) Pulse Ox O2 Delivery O2 Flow Rate FiO2 12/02/18 20:41 112 93/56 12/02/18 16:22 97.6 20 95 12/02/18 05:54 Room Air Labs: Laboratory Tests Test 12/02/18 07:30 White Blood Count 6.2 x10^3/uL (4.0-11.0) Red Blood Count 4.77 x10^6/uL (3.50-5.40) Hemoglobin 12.9 g/dL (12.0-15.5) Hematocrit 40.1 % (36.0-47.0) Mean Corpuscular Volume 84 fL (79-100) Mean Corpuscular Hemoglobin 27 pg (25-35) Mean Corpuscular Hemoglobin Concent 32 g/dL (31-37) Red Cell Distribution Width 15.8 % (11.5-14.5) H Platelet Count 282 x10^3/uL (140-400) Neutrophils (%) (Auto) 79 % (31-73) H Lymphocytes (%) (Auto) 13 % (24-48) L Monocytes (%) (Auto) 7 % (0-9) Eosinophils (%) (Auto) 1 % (0-3) Basophils (%) (Auto) 0 % (0-3) Neutrophils # (Auto) 4.9 x10^3uL (1.8-7.7) Lymphocytes # (Auto) 0.8 x10^3/uL (1.0-4.8) L Monocytes # (Auto) 0.4 x10^3/uL (0.0-1.1) Eosinophils # (Auto) 0.0 x10^3/uL (0.0-0.7) Basophils # (Auto) 0.0 x10^3/uL (0.0-0.2) Sodium Level 141 mmol/L (136-145) Potassium Level 4.2 mmol/L (3.5-5.1) Chloride Level 104 mmol/L (98-107) Carbon Dioxide Level 28 mmol/L (21-32) Anion Gap 9 (6-14) Blood Urea Nitrogen 19 mg/dL (7-20) Creatinine 1.0 mg/dL (0.6-1.0) Estimated GFR (Cockcroft-Gault) 54.2 BUN/Creatinine Ratio 19 (6-20) Glucose Level 97 mg/dL (70-99) Calcium Level 9.4 mg/dL (8.5-10.1) Magnesium Level 2.0 mg/dL (1.8-2.4) Iron Level 27 ug/dL (50-170) L Total Iron Binding Capacity 233 ug/dL (250-450) L Iron Saturation 12 % (15-34) L Total Bilirubin 0.3 mg/dL (0.2-1.0) Aspartate Amino Transferase (AST) 51 U/L (15-37) H Alanine Aminotransferase (ALT) 18 U/L (14-59) Alkaline Phosphatase 111 U/L (46-116) Total Protein 6.6 g/dL (6.4-8.2) Albumin 3.3 g/dL (3.4-5.0) L Albumin/Globulin Ratio 1.0 (1.0-1.7) Triglycerides Level 160 mg/dL (0-150) H Cholesterol Level 187 mg/dL (0-200) LDL Cholesterol, Calculated 120 mg/dL (0-100) H VLDL Cholesterol, Calculated 32 mg/dL (0-40) Non-HDL Cholesterol Calculated 152 mg/dL (0-129) H HDL Cholesterol 35 mg/dL (40-60) L Cholesterol/HDL Ratio 5.0 Thyroid Stimulating Hormone (TSH) 2.053 uIU/mL (0.358-3.740) Thyroxine (T4) 7.4 ug/dL (4.5-12.0) Total Triiodothyronine (TT3) 107 ng/dL (71-180) Current Medications: Meds: Current Medications Medications (Trade) Dose Ordered Sig/Irma Route PRN Reason Start Time Stop Time Status Last Admin Dose Admin Clonazepam (KlonoPIN) 1 mg TID PO 12/02/18 09:00 12/02/18 20:24 Desvenlafaxine Succinate (Pristiq) 50 mg BID PO 12/02/18 09:00 12/02/18 20:24 Carbidopa/Levodopa (Sinemet 25/100) 1 tab TID PO 12/02/18 09:00 12/02/18 10:10 DC 12/02/18 09:29 Vitamin D (Vitamin D3) 1,000 unit DAILY PO 12/02/18 09:00 12/02/18 09:29 Docusate Sodium (Colace) 100 mg DAILY PO 12/02/18 09:00 12/02/18 09:29 Gabapentin (Neurontin) 300 mg TID PO 12/02/18 09:00 12/02/18 20:24 Metoprolol Tartrate (Lopressor) 25 mg BID PO 12/02/18 09:00 12/02/18 09:29 Artificial Tears (Artificial Tears) 2 drop TID OU 12/02/18 09:00 12/02/18 20:24 Lactulose (Lactulose) 30 gm DAILY PO 12/02/18 09:00 12/02/18 09:29 Chlorpromazine HCl (Thorazine) 25 mg TID PO 12/02/18 09:00 12/02/18 22:02 DC 12/02/18 20:24 Carbidopa/Levodopa (Sinemet 25/100) 1 tab Q3HRS PO 12/02/18 12:00 12/02/18 20:24 Ropinirole HCl (Requip) 0.25 mg TID PO 12/02/18 10:30 12/02/18 20:24 I have reviewed the current psychotropics carefully including drug interactions. Risk benefit ratio favors no change other than as noted in my dictated progress note. Diagnosis: Problems: (1) Major depression (2) Bipolar affective disorder, mixed (3) Anxiety disorder (4) Major depressive disorder, recurrent episode (5) Impulse control disorder (6) Mild cognitive impairment BRIAN CHAPA MD Dec 02, 2018 22:26
[2018-12-03 01:10] LABS: HEMOGLOBIN A1C 5.1 % (4.8-5.6)
[2018-12-03] MEDS: CARBIDOPA/LEVODOPA 25/100MG TABLET PO SCH ×8 (02:29→19:45)
[2018-12-03 05:38] VITALS: BP 107/70
[2018-12-03] MEDS: DOCUSATE SODIUM 100 MG CAPSULE PO SCH (07:54)
[2018-12-03] MEDS: POLYVINYL ALCOHOL 1.4% OPHTH SOLUTION 15ML BOTTLE. OU SCH ×3 (07:54→19:43)
[2018-12-03] MEDS: clonazePAM 1 MG TABLET PO SCH ×3 (07:55→19:50)
[2018-12-03] MEDS: LACTULOSE 20 GM/30 ML SOLUTION. PO SCH (07:59)
[2018-12-03] MEDS: METOPROLOL TART IMMED RELEASE 25 MG TABLET PO SCH ×2 (08:01→19:52)
[2018-12-03] MEDS: GABAPENTIN 300 MG CAPSULE. PO SCH ×3 (08:01→19:43)
[2018-12-03] MEDS: QUEtiapine 25 MG TABLET. PO SCH ×3 (08:04→17:15)
[2018-12-03] MEDS: rOPINIRole 0.25 MG TABLET. PO SCH ×3 (08:04→19:50)
[2018-12-03] MEDS: DESVENLAFAXINE SUCCINATE 25 MG TAB.ER.24H PO SCH (08:04)
[2018-12-03] MEDS: CHOLECALCIFEROL (VITAMIN D3) 1,000 UNIT TABLET PO SCH (08:05)
[2018-12-03 16:04] VITALS: BP 91/58
[2018-12-03] MEDS ORDERED: CHOLECALCIFEROL (VITAMIN D3) 50,000 UNIT CAPSULE PO SCH (17:00)
[2018-12-03] MEDS: LIDOCAINE (700MG/PATCH) PATCH. TD SCH (17:24)
[2018-12-03] MEDS: MIRTAZAPINE 7.5 MG TABLET. PO SCH (19:50)
[2018-12-03] MEDS: PATCH REMOVAL. MC SCH (21:00)
[2018-12-03] MEDS: VENLAFAXINE 37.5 MG TABLET. PO SCH (21:03)
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
[2018-12-04] MEDS: ACETAMINOPHEN 325 MG TABLET PO PRN (05:30)
[2018-12-04] MEDS: CARBIDOPA/LEVODOPA 25/100MG TABLET PO SCH ×8 (05:31→19:34)
[2018-12-04 05:39] VITALS: BP 98/64
[2018-12-04] MEDS: LIDOCAINE (700MG/PATCH) PATCH. TD SCH (08:25)
[2018-12-04] MEDS: VENLAFAXINE 37.5 MG TABLET. PO SCH ×2 (08:25→19:34)
[2018-12-04] MEDS: DOCUSATE SODIUM 100 MG CAPSULE PO SCH (08:26)
[2018-12-04] MEDS: QUEtiapine 25 MG TABLET. PO SCH ×4 (08:26→15:27)
[2018-12-04] MEDS: GABAPENTIN 300 MG CAPSULE. PO SCH ×4 (08:26→19:34)
[2018-12-04] MEDS: clonazePAM 1 MG TABLET PO SCH ×4 (08:26→19:38)
[2018-12-04] MEDS: rOPINIRole 0.25 MG TABLET. PO SCH ×4 (08:26→19:34)
[2018-12-04] MEDS: METOPROLOL TART IMMED RELEASE 25 MG TABLET PO SCH ×3 (08:27→19:58)
[2018-12-04] MEDS: LACTULOSE 20 GM/30 ML SOLUTION. PO SCH (08:28)
--- NOTE | 2018-12-04 08:47 | PDOC ---
Exam Note: Greg Note: Late entry for DOS 12/03/2018. Please also refer to the separate dictated note~for this date of service dictated separately.~Patient seen individually. Discussed the patient with Nursing staff reviewed the chart.~Reviewed interim history and current functioning. Reviewed vital signs,~Labs/ Radiology~and current medications noted below. Continue current treatment with the changes noted in the dictated addendum note Assessment: Vital Signs/I&O: Vital Signs Date Time Temp Pulse Resp B/P (MAP) Pulse Ox O2 Delivery O2 Flow Rate FiO2 12/04/18 08:34 94 98/64 12/04/18 05:39 97.2 18 95 Room Air I & O 12/03/18 12/03/18 12/04/18 14:59 22:59 06:59 Intake Total 420 ml 240 ml 80 ml Balance 420 ml 240 ml 80 ml Current Medications: Meds: Current Medications Medications (Trade) Dose Ordered Sig/Irma Route PRN Reason Start Time Stop Time Status Last Admin Dose Admin Mirtazapine (Remeron) 7.5 mg QHS PO 12/03/18 21:00 12/03/18 19:50 Quetiapine Fumarate (SEROquel) 12.5 mg TID@0900,1300,1700 PO 12/03/18 09:00 12/04/18 08:34 Carbidopa/Levodopa (Sinemet 25/100) 1 tab 0600,0900,1200,1500 PO 12/03/18 15:00 12/04/18 08:34 Carbidopa/Levodopa (Sinemet 25/100) 1 tab 1800,2100 PO 12/03/18 18:00 12/03/18 19:45 Venlafaxine HCl (Effexor) 37.5 mg BID PO 12/03/18 21:00 12/04/18 08:34 Vitamin D (Vitamin D3) 50,000 unit WEEKLY PO 12/04/18 09:00 12/04/18 08:34 Lidocaine (Lidoderm) 1 patch DAILY TD 12/03/18 17:30 12/04/18 08:34 Miscellaneous (Lidoderm Patch Removal) 1 ea QHS MC 12/03/18 21:00 12/03/18 21:03 I have reviewed the current psychotropics carefully including drug interactions. Risk benefit ratio favors no change other than as noted in my dictated progress note. Diagnosis: Problems: (1) Major depression (2) Bipolar affective disorder, mixed (3) Anxiety disorder (4) Major depressive disorder, recurrent episode (5) Impulse control disorder (6) Mild cognitive impairment BRIAN CHAPA MD Dec 04, 2018 08:47
[2018-12-04] MEDS: POLYVINYL ALCOHOL 1.4% OPHTH SOLUTION 15ML BOTTLE. OU SCH ×3 (09:00→19:38)
[2018-12-04] MEDS ORDERED: CHOLECALCIFEROL (VITAMIN D3) 50,000 UNIT CAPSULE PO SCH (09:00)
[2018-12-04] MEDS ORDERED: IBUPROFEN 200 MG TABLET PO PRN (11:00)
[2018-12-04 15:40] VITALS: BP 109/57
[2018-12-04 17:15] LABS: BASO % 0 % (0-3); EOS # 0.1 x10^3/uL (0.0-0.7); EOS % 1 % (0-3); HEMATOCRIT 39.6 % (36.0-47.0); HEMOGLOBIN 12.9 g/dL (12.0-15.5); LYMPH # 1.4 x10^3/uL (1.0-4.8); LYMPH % 21 % (24-48); MEAN CORPUSCULAR HEMOGLOBIN 28 pg (25-35); MEAN CORPUSCULAR HGB CONC 33 g/dL (31-37); MEAN CORPUSCULAR VOLUME 85 fL (79-100); MONO # 0.6 x10^3/uL (0.0-1.1); MONO % 9 % (0-9); NEUT # 4.5 x10^3uL (1.8-7.7); NEUT % 68 % (31-73); PLATELET COUNT 279 x10^3/uL (140-400); RED BLOOD COUNT 4.68 x10^6/uL (3.50-5.40); WHITE BLOOD COUNT 6.6 x10^3/uL (4.0-11.0)
[2018-12-04 17:30] LABS: ALBUMIN 3.4 g/dL (3.4-5.0); ALBUMIN/GLOBULIN RATIO 0.9 (1.0-1.7); CALCIUM 9.8 mg/dL (8.5-10.1); CREATININE 0.9 mg/dL (0.6-1.0); GFR 61.2; POTASSIUM 4.4 mmol/L (3.5-5.1); TOTAL BILIRUBIN 0.2 mg/dL (0.2-1.0)
[2018-12-04] MEDS: MIRTAZAPINE 7.5 MG TABLET. PO SCH (19:34)
[2018-12-04] MEDS: ASCORBIC ACID 500 MG TABLET PO SCH (19:38)
[2018-12-04] MEDS: PATCH REMOVAL. MC SCH (19:59)
--- NOTE | 2018-12-04 22:21 | PDOC ---
Exam Note: Greg Note: Please also refer to the separate dictated note~for this date of service dictated separately.~Patient seen individually. Discussed the patient with Nursing staff reviewed the chart.~Reviewed interim history and current functioning. Reviewed vital signs,~Labs/ Radiology~and current medications noted below. Continue current treatment with the changes noted in the dictated addendum note Assessment: Vital Signs/I&O: Vital Signs Date Time Temp Pulse Resp B/P (MAP) Pulse Ox O2 Delivery O2 Flow Rate FiO2 12/04/18 19:59 77 97/76 12/04/18 15:40 98.1 20 95 Room Air I & O 12/03/18 12/03/18 12/04/18 15:00 23:00 07:00 Intake Total 420 ml 240 ml 80 ml Balance 420 ml 240 ml 80 ml Labs: Laboratory Tests Test 12/04/18 17:05 White Blood Count 6.6 x10^3/uL (4.0-11.0) Red Blood Count 4.68 x10^6/uL (3.50-5.40) Hemoglobin 12.9 g/dL (12.0-15.5) Hematocrit 39.6 % (36.0-47.0) Mean Corpuscular Volume 85 fL (79-100) Mean Corpuscular Hemoglobin 28 pg (25-35) Mean Corpuscular Hemoglobin Concent 33 g/dL (31-37) Red Cell Distribution Width 16.0 % (11.5-14.5) H Platelet Count 279 x10^3/uL (140-400) Neutrophils (%) (Auto) 68 % (31-73) Lymphocytes (%) (Auto) 21 % (24-48) L Monocytes (%) (Auto) 9 % (0-9) Eosinophils (%) (Auto) 1 % (0-3) Basophils (%) (Auto) 0 % (0-3) Neutrophils # (Auto) 4.5 x10^3uL (1.8-7.7) Lymphocytes # (Auto) 1.4 x10^3/uL (1.0-4.8) Monocytes # (Auto) 0.6 x10^3/uL (0.0-1.1) Eosinophils # (Auto) 0.1 x10^3/uL (0.0-0.7) Basophils # (Auto) 0.0 x10^3/uL (0.0-0.2) Sodium Level 141 mmol/L (136-145) Potassium Level 4.4 mmol/L (3.5-5.1) Chloride Level 105 mmol/L (98-107) Carbon Dioxide Level 29 mmol/L (21-32) Anion Gap 7 (6-14) Blood Urea Nitrogen 27 mg/dL (7-20) H Creatinine 0.9 mg/dL (0.6-1.0) Estimated GFR (Cockcroft-Gault) 61.2 BUN/Creatinine Ratio 30 (6-20) H Glucose Level 118 mg/dL (70-99) H Calcium Level 9.8 mg/dL (8.5-10.1) Total Bilirubin 0.2 mg/dL (0.2-1.0) Aspartate Amino Transferase (AST) 43 U/L (15-37) H Alanine Aminotransferase (ALT) 16 U/L (14-59) Alkaline Phosphatase 106 U/L (46-116) Total Protein 7.0 g/dL (6.4-8.2) Albumin 3.4 g/dL (3.4-5.0) Albumin/Globulin Ratio 0.9 (1.0-1.7) L Current Medications: Meds: Current Medications Medications (Trade) Dose Ordered Sig/Irma Route PRN Reason Start Time Stop Time Status Last Admin Dose Admin Vitamin D (Vitamin D3) 50,000 unit WEEKLY PO 12/04/18 09:00 12/04/18 08:34 Ascorbic Acid (Vitamin C) 500 mg BID PO 12/04/18 21:00 12/04/18 19:59 Metoprolol Tartrate (Lopressor) 12.5 mg BID PO 12/04/18 13:45 12/04/18 19:59 Clonazepam (KlonoPIN) 1 mg BID PO 12/04/18 21:00 12/07/18 05:00 12/04/18 19:59 I have reviewed the current psychotropics carefully including drug interactions. Risk benefit ratio favors no change other than as noted in my dictated progress note. Diagnosis: Problems: (1) Major depression (2) Bipolar affective disorder, mixed (3) Anxiety disorder (4) Major depressive disorder, recurrent episode (5) Impulse control disorder (6) Mild cognitive impairment BRIAN CHAPA MD Dec 04, 2018 22:21
--- NOTE | 2018-12-04 23:44 | PN ---
DATE: 12/03/2018 PSYCHIATRIC PROGRESS NOTE This late entry, 12/03, covers the elements not covered in my initial note. SUBJECTIVE: I met with the patient at some length in the evening of 12/03. The patient slept 7-1/2 hours previous night. She still is withdrawn, somewhat depressed, admits to being hopeless. She did feed herself, which is positive and propels herself. She fed herself some lunch and I assisted with part of her supper/chocolate ice cream. REVIEW OF SYSTEMS: Ambulation impaired, in wheelchair. No CV, , pulmonary, eye systems symptoms on review. Admits to being tired. MENTAL STATUS EXAM: Oriented to herself and situation. Speech moderate latency, often responses monosyllabic, low in rate and rhythm, low in volume. Abstraction fair, computation impaired, language function intact. Mood and affect still withdrawn, depressed. LABORATORY DATA: Reviewed. IMPRESSION: Bipolar disorder, depressed with psychotic features; anxiety disorder, unspecified; mild cognitive impairment. PLAN: The patient is on Pristiq ER 50 mg b.i.d., but she does not swallow her meds and takes them crushed and we change it to Effexor 37.5 mg twice a day. Saphris has been discontinued. We started Seroquel 12.5 mg t.i.d., Remeron 7.5 mg at bedtime. Thorazine has been stopped. Zyprexa added p.r.n. We will make further adjustments as clinically indicated. BRIAN CHAPA MD DR: ANTONIO/gianfranco JOB#: [id number] / [id number]
[2018-12-05] MEDS: CARBIDOPA/LEVODOPA 25/100MG TABLET PO SCH ×6 (05:52→19:43)
[2018-12-05 06:23] VITALS: BP 115/70
[2018-12-05] MEDS: VENLAFAXINE 37.5 MG TABLET. PO SCH ×2 (07:34→19:42)
[2018-12-05] MEDS: LACTULOSE 20 GM/30 ML SOLUTION. PO SCH (07:34)
[2018-12-05] MEDS: rOPINIRole 0.25 MG TABLET. PO SCH ×3 (07:34→19:43)
[2018-12-05] MEDS: DOCUSATE SODIUM 100 MG CAPSULE PO SCH (07:34)
[2018-12-05] MEDS: METOPROLOL TART IMMED RELEASE 25 MG TABLET PO SCH ×2 (07:35→19:45)
[2018-12-05] MEDS: QUEtiapine 25 MG TABLET. PO SCH ×3 (07:35→17:02)
[2018-12-05] MEDS: ASCORBIC ACID 500 MG TABLET PO SCH ×2 (07:36→19:42)
[2018-12-05] MEDS: LIDOCAINE (700MG/PATCH) PATCH. TD SCH (07:36)
[2018-12-05] MEDS: DIVALPROEX 125 MG CAP.SPRINK PO SCH (08:11)
[2018-12-05] MEDS: POLYVINYL ALCOHOL 1.4% OPHTH SOLUTION 15ML BOTTLE. OU SCH ×3 (08:11→20:02)
[2018-12-05] MEDS: LACTOBACILLUS RHAMNOSUS GG 1 CAPSULE. PO SCH (08:11)
[2018-12-05] MEDS: clonazePAM 1 MG TABLET PO SCH ×2 (08:11→20:05)
[2018-12-05] MEDS: MULTIVITAMIN with MINERAL TABLET. PO SCH (08:13)
[2018-12-05] MEDS: GABAPENTIN 300 MG CAPSULE. PO SCH ×3 (08:13→19:43)
[2018-12-05 15:46] VITALS: BP 121/82
[2018-12-05] MEDS: PATCH REMOVAL. MC SCH (20:01)
[2018-12-05] MEDS: MIRTAZAPINE 7.5 MG TABLET. PO SCH (20:04)
--- NOTE | 2018-12-05 21:54 | PDOC ---
Exam Note: Greg Note: Please also refer to the separate dictated note~for this date of service dictated separately.~Patient seen individually. Discussed the patient with Nursing staff reviewed the chart.~Reviewed interim history and current functioning. Reviewed vital signs,~Labs/ Radiology~and current medications noted below. Continue current treatment with the changes noted in the dictated addendum note Assessment: Vital Signs/I&O: Vital Signs Date Time Temp Pulse Resp B/P (MAP) Pulse Ox O2 Delivery O2 Flow Rate FiO2 12/05/18 19:46 126 121/82 12/05/18 15:46 97.7 16 96 12/04/18 15:40 Room Air I & O 12/04/18 12/04/18 12/05/18 15:00 23:00 07:00 Intake Total 360 ml 240 ml 80 ml Balance 360 ml 240 ml 80 ml Current Medications: Meds: Current Medications Medications (Trade) Dose Ordered Sig/Irma Route PRN Reason Start Time Stop Time Status Last Admin Dose Admin Multivitamins/ Calcium (Thera-M Plus) 1 tab DAILY PO 12/05/18 09:00 12/05/18 08:13 Divalproex Sodium (Depakote Sprinkles) 500 mg DAILY PO 12/05/18 09:00 12/05/18 08:13 Lactobacillus Rhamnosus (Culturelle) 1 cap DAILY PO 12/05/18 09:00 12/05/18 08:13 I have reviewed the current psychotropics carefully including drug interactions. Risk benefit ratio favors no change other than as noted in my dictated progress note. Diagnosis: Problems: (1) Major depression (2) Bipolar affective disorder, mixed (3) Anxiety disorder (4) Major depressive disorder, recurrent episode (5) Impulse control disorder (6) Mild cognitive impairment BRIAN CHAPA MD Dec 05, 2018 21:54
--- NOTE | 2018-12-06 04:03 | PN ---
DATE: 12/04/2018 PSYCHIATRIC PROGRESS NOTE This late entry 12/04/2018 covers elements not covered in my initial note. SUBJECTIVE: I met with the patient evening of 12/04/2018. The patient slept 7-1/4 hours previous night. She has been quite resistive to taking her medications, withdrawn. Had a lengthy conversation with the sister per nursing report and sister suggested being very matter of fact in presenting the medications to the patient and explaining that it is to help with her ambulation and her Parkinson's amongst other things. I addressed this with her at some length. She remains somewhat withdrawn. REVIEW OF SYSTEMS: Ambulation impaired, in wheelchair. No CV, , pulmonary, eye, ENT system symptoms on review. Reliability poor. MENTAL STATUS EXAM: The patient is oriented to herself, situation, seated in the wheelchair, head bent forward. Speech moderate latency, low in rate and rhythm, low in volume. I sat next to her. Had to put my ear right close to her face to be able to understand and hear her. We discussed her medication compliance at length. Reasonably oriented. Speech as above. Abstraction fair, computation impaired, language function intact. Mood and affect withdrawn. She is still paranoid, suspicious. LABORATORY DATA: Reviewed. IMPRESSION: Bipolar 1 disorder; depressed with psychotic features; anxiety disorder, unspecified; mild cognitive impairment. PLAN: We will start Depakote as a mood stabilizer 500 mg Sprinkles daily. Check CBC, CMP, valproic acid level, ammonia level in 3 days. We will taper the Klonopin down from 1 mg t.i.d. down to 1 mg b.i.d. for 2 days, then 1.5 mg daily thereafter. Continue Effexor, Remeron, Seroquel and she remains on Requip and Sinemet for her Parkinson's. BRIAN CHAPA MD DR: ANTONIO/gianfranco JOB#: [id number] / [id number]
[2018-12-06] MEDS: CARBIDOPA/LEVODOPA 25/100MG TABLET PO SCH ×6 (05:18→19:41)
[2018-12-06] MEDS: ACETAMINOPHEN 325 MG TABLET PO PRN (05:18)
[2018-12-06 06:06] VITALS: BP 137/71
[2018-12-06] MEDS: DOCUSATE SODIUM 100 MG CAPSULE PO SCH (07:49)
[2018-12-06] MEDS: DIVALPROEX 125 MG CAP.SPRINK PO SCH (07:49)
[2018-12-06] MEDS: VENLAFAXINE 37.5 MG TABLET. PO SCH ×2 (07:49→19:41)
[2018-12-06] MEDS: LACTOBACILLUS RHAMNOSUS GG 1 CAPSULE. PO SCH (07:50)
[2018-12-06] MEDS: ASCORBIC ACID 500 MG TABLET PO SCH ×2 (07:52→19:41)
[2018-12-06] MEDS: MULTIVITAMIN with MINERAL TABLET. PO SCH (07:52)
[2018-12-06] MEDS: METOPROLOL TART IMMED RELEASE 25 MG TABLET PO SCH ×2 (07:52→21:03)
[2018-12-06] MEDS: QUEtiapine 25 MG TABLET. PO SCH ×3 (07:53→17:01)
[2018-12-06] MEDS: rOPINIRole 0.25 MG TABLET. PO SCH ×3 (07:53→19:42)
[2018-12-06] MEDS: LACTULOSE 20 GM/30 ML SOLUTION. PO SCH (07:55)
[2018-12-06] MEDS: POLYVINYL ALCOHOL 1.4% OPHTH SOLUTION 15ML BOTTLE. OU SCH ×3 (07:57→19:41)
[2018-12-06] MEDS: LIDOCAINE (700MG/PATCH) PATCH. TD SCH (07:58)
[2018-12-06] MEDS: GABAPENTIN 300 MG CAPSULE. PO SCH ×3 (08:01→19:41)
[2018-12-06] MEDS: clonazePAM 1 MG TABLET PO SCH ×2 (08:01→21:05)
[2018-12-06 15:45] VITALS: BP 100/63
[2018-12-06] MEDS: MIRTAZAPINE 7.5 MG TABLET. PO SCH (19:41)
[2018-12-06] MEDS: PATCH REMOVAL. MC SCH (21:00)
--- NOTE | 2018-12-06 22:05 | PDOC ---
Exam Note: Greg Note: Please also refer to the separate dictated note~for this date of service dictated separately.~Patient seen individually. Discussed the patient with Nursing staff reviewed the chart.~Reviewed interim history and current functioning. Reviewed vital signs,~Labs/ Radiology~and current medications noted below. Continue current treatment with the changes noted in the dictated addendum note Assessment: Vital Signs/I&O: Vital Signs Date Time Temp Pulse Resp B/P (MAP) Pulse Ox O2 Delivery O2 Flow Rate FiO2 12/06/18 21:05 94 110/73 12/06/18 15:45 97.6 19 96 Room Air I & O 12/05/18 12/05/18 12/06/18 15:00 23:00 07:00 Intake Total 600 ml 120 ml 0 ml Balance 600 ml 120 ml 0 ml Current Medications: I have reviewed the current psychotropics carefully including drug interactions. Risk benefit ratio favors no change other than as noted in my dictated progress note. Diagnosis: Problems: (1) Major depression (2) Bipolar affective disorder, mixed (3) Anxiety disorder (4) Major depressive disorder, recurrent episode (5) Impulse control disorder (6) Mild cognitive impairment BRIAN CHAPA MD Dec 06, 2018 22:05
[2018-12-07 05:17] VITALS: BP 108/65
[2018-12-07] MEDS: CARBIDOPA/LEVODOPA 25/100MG TABLET PO SCH ×6 (06:21→20:29)
[2018-12-07] MEDS: VENLAFAXINE 37.5 MG TABLET. PO SCH ×2 (07:34→20:29)
[2018-12-07] MEDS: DIVALPROEX 125 MG CAP.SPRINK PO SCH (07:34)
[2018-12-07] MEDS: MULTIVITAMIN with MINERAL TABLET. PO SCH (07:35)
[2018-12-07] MEDS: METOPROLOL TART IMMED RELEASE 25 MG TABLET PO SCH ×2 (07:35→21:17)
[2018-12-07] MEDS: QUEtiapine 25 MG TABLET. PO SCH ×3 (07:35→17:00)
[2018-12-07] MEDS: DOCUSATE SODIUM 100 MG CAPSULE PO SCH (07:35)
[2018-12-07] MEDS: rOPINIRole 0.25 MG TABLET. PO SCH ×3 (07:35→20:29)
[2018-12-07] MEDS: LIDOCAINE (700MG/PATCH) PATCH. TD SCH (07:36)
[2018-12-07] MEDS: LACTULOSE 20 GM/30 ML SOLUTION. PO SCH (07:36)
[2018-12-07] MEDS: LACTOBACILLUS RHAMNOSUS GG 1 CAPSULE. PO SCH (07:36)
[2018-12-07] MEDS: ASCORBIC ACID 500 MG TABLET PO SCH ×2 (07:36→20:29)
[2018-12-07] MEDS: POLYVINYL ALCOHOL 1.4% OPHTH SOLUTION 15ML BOTTLE. OU SCH ×3 (07:40→20:28)
[2018-12-07] MEDS: GABAPENTIN 300 MG CAPSULE. PO SCH ×3 (07:41→20:29)
[2018-12-07] MEDS: clonazePAM 0.5 MG TABLET PO SCH ×2 (07:41→20:30)
[2018-12-07 15:26] VITALS: BP 115/66
[2018-12-07] MEDS: MIRTAZAPINE 7.5 MG TABLET. PO SCH (20:29)
[2018-12-07] MEDS: PATCH REMOVAL. MC SCH (21:00)
[2018-12-07] MEDS: ACETAMINOPHEN 325 MG TABLET PO PRN (21:17)
--- NOTE | 2018-12-07 22:09 | PDOC ---
Exam Note: Greg Note: Please also refer to the separate dictated note~for this date of service dictated separately.~Patient seen individually. Discussed the patient with Nursing staff reviewed the chart.~Reviewed interim history and current functioning. Reviewed vital signs,~Labs/ Radiology~and current medications noted below. Continue current treatment with the changes noted in the dictated addendum note Assessment: Vital Signs/I&O: Vital Signs Date Time Temp Pulse Resp B/P (MAP) Pulse Ox O2 Delivery O2 Flow Rate FiO2 12/07/18 21:17 96 110/68 12/07/18 15:26 98.8 20 96 12/07/18 05:17 Room Air I & O 12/06/18 12/06/18 12/07/18 14:59 22:59 06:59 Intake Total 360 ml 240 ml Balance 360 ml 240 ml Current Medications: Meds: Current Medications Medications (Trade) Dose Ordered Sig/Irma Route PRN Reason Start Time Stop Time Status Last Admin Dose Admin Clonazepam (KlonoPIN) 0.5 mg BID PO 12/07/18 09:00 12/07/18 20:30 I have reviewed the current psychotropics carefully including drug interactions. Risk benefit ratio favors no change other than as noted in my dictated progress note. Diagnosis: Problems: (1) Bipolar affective disorder, mixed (2) Anxiety disorder (3) Major depressive disorder, recurrent episode (4) Impulse control disorder (5) Mild cognitive impairment BRIAN CHAPA MD Dec 07, 2018 22:09
--- NOTE | 2018-12-07 22:47 | PN ---
DATE: 12/05/2018 PSYCHIATRIC PROGRESS NOTE This late entry 12/05 covers elements not covered in my initial note. SUBJECTIVE: I met with the patient evening of 12/05. The patient slept 6-1/2 hours previous night. Her antihypertensives are being adjusted per Dr. Lezama. She complains of neck pain and part of this is due to her posture where she sits head bent forward in the wheelchair due to her Parkinson's. She took her at bedtime meds in applesauce and during the day on 12/05 in chocolate pudding. REVIEW OF SYSTEMS: Ambulation impaired, in wheelchair. No CV, , pulmonary, eye, ENT system symptoms on review. MENTAL STATUS EXAM: Oriented to herself and situation. Speech moderate latency, coherent, often responses monosyllabic. Abstraction fair. Computation impaired. Language function intact. Attention span short. Mood and affect somewhat withdrawn. LABORATORY DATA: Reviewed. IMPRESSION: Unchanged from initial note. PLAN: No change from initial note. Klonopin is being tapered. We have her on low dose Seroquel; remains on Effexor, Remeron and she is on Sinemet and Requip for her Parkinson's and Depakote as a mood stabilizer is being adjusted to reach therapeutic level with next set of labs on the . BRIAN CHAPA MD DR: ANTONIO/gianfranco JOB#: [id number] / [id number]
--- NOTE | 2018-12-07 22:58 | PN ---
DATE: 12/06/2018 This late entry 12/06 covers elements not covered in my initial note. SUBJECTIVE: I met with the patient evening of 12/06. The patient was staffed at treatment team meeting with the entire team in the morning. The patient's sister Mago attended the treatment team meeting and information from Mago was very helpful as part of the patient's treatment plan. The patient sleeping average 7 hours, appetite 50-75%, compliant with medications, somewhat quiet, withdrawn. REVIEW OF SYSTEMS: No CV, , pulmonary, eye system symptoms on review. Reliability varies. MENTAL STATUS EXAM: The patient is in her wheelchair. Ambulation impaired. Speech has moderate latency, low in rate and rhythm, often responses monosyllabic, seated with head bent forward. Abstraction fair. Computation impaired. Language function intact. Mood and affect withdrawn. Still somewhat paranoid, but little more compliant with the psychotropics. IMPRESSION: Unchanged from initial note. PLAN: No change from initial note. Depakote is being adjusted. Labs to be checked on the , then adjust further Klonopin is being tapered. She is on low dose Seroquel during the day and Remeron at night. BRIAN CHAPA MD DR: ANTONIO/gianfranco JOB#: [id number] / [id number]
[2018-12-08 05:38] VITALS: BP 97/58
[2018-12-08] MEDS: CARBIDOPA/LEVODOPA 25/100MG TABLET PO SCH ×6 (05:39→20:38)
[2018-12-08] MEDS: IBUPROFEN 400 MG TABLET. PO PRN ×2 (05:40→17:24)
[2018-12-08 07:38] LABS: BASO % 1 % (0-3); EOS # 0.1 x10^3/uL (0.0-0.7); EOS % 1 % (0-3); HEMOGLOBIN 12.2 g/dL (12.0-15.5); LYMPH # 1.1 x10^3/uL (1.0-4.8); LYMPH % 25 % (24-48); MEAN CORPUSCULAR HEMOGLOBIN 28 pg (25-35); MEAN CORPUSCULAR HGB CONC 32 g/dL (31-37); MEAN CORPUSCULAR VOLUME 87 fL (79-100); MONO # 0.4 x10^3/uL (0.0-1.1); MONO % 8 % (0-9); NEUT # 2.9 x10^3uL (1.8-7.7); NEUT % 65 % (31-73); PLATELET COUNT 270 x10^3/uL (140-400); RED BLOOD COUNT 4.38 x10^6/uL (3.50-5.40); RED CELL DISTRIBUTION WIDTH 16.6 % (11.5-14.5); WHITE BLOOD COUNT 4.5 x10^3/uL (4.0-11.0)
[2018-12-08] MEDS: DOCUSATE SODIUM 100 MG CAPSULE PO SCH (07:45)
[2018-12-08] MEDS: LACTOBACILLUS RHAMNOSUS GG 1 CAPSULE. PO SCH (07:45)
[2018-12-08] MEDS: POLYVINYL ALCOHOL 1.4% OPHTH SOLUTION 15ML BOTTLE. OU SCH ×4 (07:45→20:45)
[2018-12-08] MEDS: rOPINIRole 0.25 MG TABLET. PO SCH ×3 (07:46→20:38)
[2018-12-08] MEDS: VENLAFAXINE 37.5 MG TABLET. PO SCH ×2 (07:46→20:38)
[2018-12-08] MEDS: DIVALPROEX 125 MG CAP.SPRINK PO SCH (07:46)
[2018-12-08] MEDS: QUEtiapine 25 MG TABLET. PO SCH ×3 (07:46→17:19)
[2018-12-08] MEDS: MULTIVITAMIN with MINERAL TABLET. PO SCH (07:47)
[2018-12-08] MEDS: ASCORBIC ACID 500 MG TABLET PO SCH ×2 (07:47→20:45)
[2018-12-08 07:48] LABS: ALBUMIN/GLOBULIN RATIO 0.8 (1.0-1.7); ALK PHOS 89 U/L (46-116); ALT (SGPT) 11 U/L (14-59); ANION GAP 6 (6-14); AST (SGOT) 85 U/L (15-37); BLOOD UREA NITROGEN 27 mg/dL (7-20); BUN/CREATININE RATIO 34 (6-20); CALCIUM 9.3 mg/dL (8.5-10.1); CARBON DIOXIDE 31 mmol/L (21-32); CHLORIDE 107 mmol/L (98-107); CREATININE 0.8 mg/dL (0.6-1.0); GFR 70.1; GLUCOSE 99 mg/dL (70-99); POTASSIUM 4.2 mmol/L (3.5-5.1); SODIUM 144 mmol/L (136-145); TOTAL BILIRUBIN 0.3 mg/dL (0.2-1.0); TOTAL PROTEIN 6.6 g/dL (6.4-8.2)
[2018-12-08] MEDS: METOPROLOL TART IMMED RELEASE 25 MG TABLET PO SCH ×2 (07:48→20:39)
[2018-12-08 07:50] LABS: VAL ACID 21 mcg/mL (50-100)
[2018-12-08] MEDS: LACTULOSE 20 GM/30 ML SOLUTION. PO SCH (07:55)
[2018-12-08] MEDS: clonazePAM 0.5 MG TABLET PO SCH ×2 (08:24→21:14)
[2018-12-08] MEDS: GABAPENTIN 300 MG CAPSULE. PO SCH ×3 (08:24→20:37)
[2018-12-08] MEDS: LIDOCAINE (700MG/PATCH) PATCH. TD SCH (08:25)
[2018-12-08 15:48] VITALS: BP 105/70
[2018-12-08] MEDS ORDERED: METHYL SALICYLATE/MENTHOL TOPICAL OINTMENT 29GM TUBE. TP PRN (17:00)
[2018-12-08] MEDS: ACETAMINOPHEN 325 MG TABLET PO PRN (17:19)
[2018-12-08] MEDS: PATCH REMOVAL. MC SCH (20:30)
[2018-12-08] MEDS: MIRTAZAPINE 7.5 MG TABLET. PO SCH (20:37)
--- NOTE | 2018-12-08 21:59 | PDOC ---
Exam Note: Greg Note: Please also refer to the separate dictated note~for this date of service dictated separately.~Patient seen individually. Discussed the patient with Nursing staff reviewed the chart.~Reviewed interim history and current functioning. Reviewed vital signs,~Labs/ Radiology~and current medications noted below. Continue current treatment with the changes noted in the dictated addendum note Assessment: Vital Signs/I&O: Vital Signs Date Time Temp Pulse Resp B/P (MAP) Pulse Ox O2 Delivery O2 Flow Rate FiO2 12/08/18 20:39 104 119/74 12/08/18 15:48 97.2 18 94 12/07/18 05:17 Room Air I & O 12/07/18 12/07/18 12/08/18 15:00 23:00 07:00 Intake Total 520 ml 240 ml 0 ml Output Total 825 ml Balance 520 ml -585 ml 0 ml Labs: Laboratory Tests Test 12/08/18 06:55 White Blood Count 4.5 x10^3/uL (4.0-11.0) Red Blood Count 4.38 x10^6/uL (3.50-5.40) Hemoglobin 12.2 g/dL (12.0-15.5) Hematocrit 38.0 % (36.0-47.0) Mean Corpuscular Volume 87 fL (79-100) Mean Corpuscular Hemoglobin 28 pg (25-35) Mean Corpuscular Hemoglobin Concent 32 g/dL (31-37) Red Cell Distribution Width 16.6 % (11.5-14.5) H Platelet Count 270 x10^3/uL (140-400) Neutrophils (%) (Auto) 65 % (31-73) Lymphocytes (%) (Auto) 25 % (24-48) Monocytes (%) (Auto) 8 % (0-9) Eosinophils (%) (Auto) 1 % (0-3) Basophils (%) (Auto) 1 % (0-3) Neutrophils # (Auto) 2.9 x10^3uL (1.8-7.7) Lymphocytes # (Auto) 1.1 x10^3/uL (1.0-4.8) Monocytes # (Auto) 0.4 x10^3/uL (0.0-1.1) Eosinophils # (Auto) 0.1 x10^3/uL (0.0-0.7) Basophils # (Auto) 0.0 x10^3/uL (0.0-0.2) Sodium Level 144 mmol/L (136-145) Potassium Level 4.2 mmol/L (3.5-5.1) Chloride Level 107 mmol/L (98-107) Carbon Dioxide Level 31 mmol/L (21-32) Anion Gap 6 (6-14) Blood Urea Nitrogen 27 mg/dL (7-20) H Creatinine 0.8 mg/dL (0.6-1.0) Estimated GFR (Cockcroft-Gault) 70.1 BUN/Creatinine Ratio 34 (6-20) H Glucose Level 99 mg/dL (70-99) Calcium Level 9.3 mg/dL (8.5-10.1) Total Bilirubin 0.3 mg/dL (0.2-1.0) Aspartate Amino Transferase (AST) 85 U/L (15-37) H Alanine Aminotransferase (ALT) 11 U/L (14-59) L Alkaline Phosphatase 89 U/L (46-116) Ammonia 13 mcmol/L (11-34) Total Protein 6.6 g/dL (6.4-8.2) Albumin 3.0 g/dL (3.4-5.0) L Albumin/Globulin Ratio 0.8 (1.0-1.7) L Valproic Acid Level 21 mcg/mL (50-100) L Valproic Acid Last Dose Date 12/07/18 Valproic Acid Last Dose Time 2100 Current Medications: Meds: Current Medications Medications (Trade) Dose Ordered Sig/Irma Route PRN Reason Start Time Stop Time Status Last Admin Dose Admin Multi-Ingredient Ointment (Analgesic [place]) 1 jen PRN QID PRN TP MUSCLE PAIN 12/08/18 17:00 12/08/18 17:19 I have reviewed the current psychotropics carefully including drug interactions. Risk benefit ratio favors no change other than as noted in my dictated progress note. Diagnosis: Problems: (1) Bipolar affective disorder, mixed (2) Anxiety disorder (3) Major depressive disorder, recurrent episode (4) Impulse control disorder (5) Mild cognitive impairment BRIAN CHAPA MD Dec 08, 2018 21:59
[2018-12-08 23:56] LABS: BACTERIA,URINE MOD /HPF (0-FEW); BILIRUBIN,URINE NEG (NEG); CLARITY,URINE TURBID; COLOR,URINE AMBER; GLUCOSE,URINE NEG (NEG); NITRITE,URINE POS (NEG); UROBILINOGEN,URINE 0.2 mg/dL (0.2 mg/dL); WBC,URINE TNTC /HPF (0-4)
[2018-12-09] MEDS: IBUPROFEN 400 MG TABLET. PO PRN ×2 (02:18→18:12)
--- NOTE | 2018-12-09 03:38 | RAD ---
EXAM: ABDOMEN ONE VIEW. HISTORY: Urinary retention. COMPARISON: None. FINDINGS: A frontal view of the abdomen is obtained. The bladder is not well demonstrated by radiographs. There is a large soft tissue density in the lower abdomen. There are no distended small bowel loops. There is gas distally. IMPRESSION: 1. The bladder is not well demonstrated radiographically. Sonography could further evaluate if the diagnosis remains unclear. Electronically signed by: Omar Valdes MD (12/09/2018 3:35 AM) [facility]
[2018-12-09] MEDS: CARBIDOPA/LEVODOPA 25/100MG TABLET PO SCH ×5 (05:14→18:00)
[2018-12-09 06:36] VITALS: BP 98/52
[2018-12-09] MEDS: ASCORBIC ACID 500 MG TABLET PO SCH (07:39)
[2018-12-09] MEDS: VENLAFAXINE 37.5 MG TABLET. PO SCH (07:39)
[2018-12-09] MEDS: rOPINIRole 0.25 MG TABLET. PO SCH ×2 (07:39→13:21)
[2018-12-09] MEDS: MULTIVITAMIN with MINERAL TABLET. PO SCH (07:39)
[2018-12-09] MEDS: LACTOBACILLUS RHAMNOSUS GG 1 CAPSULE. PO SCH (07:39)
[2018-12-09] MEDS: QUEtiapine 25 MG TABLET. PO SCH ×3 (07:40→17:00)
[2018-12-09] MEDS: DOCUSATE SODIUM 100 MG CAPSULE PO SCH (07:40)
[2018-12-09] MEDS: METOPROLOL TART IMMED RELEASE 25 MG TABLET PO SCH (07:40)
[2018-12-09] MEDS: DIVALPROEX 125 MG CAP.SPRINK PO SCH (07:40)
[2018-12-09] MEDS: LACTULOSE 20 GM/30 ML SOLUTION. PO SCH (07:40)
[2018-12-09] MEDS: LIDOCAINE (700MG/PATCH) PATCH. TD SCH (07:41)
[2018-12-09] MEDS: clonazePAM 0.5 MG TABLET PO SCH (07:43)
[2018-12-09] MEDS: GABAPENTIN 300 MG CAPSULE. PO SCH ×2 (07:43→13:21)
[2018-12-09] MEDS: POLYVINYL ALCOHOL 1.4% OPHTH SOLUTION 15ML BOTTLE. OU SCH ×2 (07:53→13:20)
[2018-12-09] MEDS: ACETAMINOPHEN 325 MG TABLET PO PRN (13:21)
--- NOTE | 2018-12-09 15:46 | RAD ---
Renal ultrasound 12/09/2018. Reason for exam: Urinary retention. History of bladder catheterization yesterday. Evaluation was somewhat limited due to the patient's inability to lay flat. The kidneys have normal cortical echogenicity without apparent mass or obstruction. The right kidney measures about 9.9 cm in length and the left kidney measures 9.3 cm. Arising from the pelvis at the midline is a fluid-filled structure suspected to represent a distended urinary bladder. This measures about 16.7 x 16.6 x 8.1 cm. IMPRESSION: No evidence of renal obstruction. There is likely bladder distention, which raises the possibility of misplacement of the catheter. Electronically signed by: Troy Lopez Jr., MD (12/09/2018 3:43 PM) [facility]
[2018-12-09 16:02] VITALS: BP 127/79
--- NOTE | 2018-12-09 17:46 | RAD ---
CT abdomen and pelvis without contrast 12/09/2018. Reason for exam: Possible abdominal mass. Distention. Urinary retention. Helical noncontrast images were performed. Sagittal and coronal reconstructions were obtained. Exposure: One or more of the following individualized dose reduction techniques were utilized for this examination: 1. Automated exposure control 2. Adjustment of the mA and/or kV according to patient size 3. Use of iterative reconstruction technique. Correlation is made with the ultrasound of earlier in the day. FINDINGS: The visualized lung bases are clear. Portions of the liver and spleen are not entirely included on the exam. The demonstrated portions show no abnormality. Evaluation is limited by noncontrast technique. The kidneys have no apparent mass or obstruction. The adrenal glands are not enlarged. The pancreas appears normal. No retroperitoneal or mesenteric adenopathy is seen. Note is made of small areas of calcification along the surface of the liver and in the right abdomen anteriorly in the region of the omentum. No ascites is seen. There is a large area of fluid density extending up from the pelvis, corresponding to the ultrasound. Although this resembles a massively distended bladder, the bladder appears to be separate from this below the abnormality and contains a Manzo catheter. This is likely a multicystic mass, possibly of ovarian origin. There are some peripheral calcifications. The mass measures up to about 20 cm mediolaterally, 16 cm craniocaudally, and 12 cm AP. The uterus and ovaries are not discernible separate from this. IMPRESSION: There is a large cystic-appearing abnormality extending up from the pelvis. This shows some peripheral calcifications. Ovarian neoplasm is a consideration. Note is also made of a few small calcifications along the surface of the liver and peritoneal lining anteriorly in the right abdomen. Peritoneal involvement is possible, although there is no ascites, as typically would be seen. Electronically signed by: Troy Lopez Jr., MD (12/09/2018 5:43 PM) [facility]
[2018-12-09] MEDS ORDERED: CHOL500016 PO (20:06)
[2018-12-09] MEDS ORDERED: ASCO500T3 PO (20:06)
[2018-12-09] MEDS ORDERED: LACT1CAP21 PO (20:07)
[2018-12-09] MEDS ORDERED: DIVA125C2 PO (20:07)
[2018-12-09 20:08] LABS: BASO % 0 % (0-3); EOS % 1 % (0-3); HEMATOCRIT 38.1 % (36.0-47.0); HEMOGLOBIN 12.4 g/dL (12.0-15.5); LYMPH # 1.1 x10^3/uL (1.0-4.8); LYMPH % 17 % (24-48); MEAN CORPUSCULAR HEMOGLOBIN 28 pg (25-35); MEAN CORPUSCULAR HGB CONC 33 g/dL (31-37); MEAN CORPUSCULAR VOLUME 85 fL (79-100); MONO # 0.5 x10^3/uL (0.0-1.1); MONO % 8 % (0-9); NEUT # 4.9 x10^3uL (1.8-7.7); NEUT % 74 % (31-73); PLATELET COUNT 307 x10^3/uL (140-400); RED BLOOD COUNT 4.51 x10^6/uL (3.50-5.40); RED CELL DISTRIBUTION WIDTH 16.2 % (11.5-14.5); WHITE BLOOD COUNT 6.7 x10^3/uL (4.0-11.0)
[2018-12-09] MEDS ORDERED: METH29OI TP (20:08)
[2018-12-09] MEDS ORDERED: LIDO700A21 TP (20:08)
[2018-12-09] MEDS ORDERED: MIRT15TA PO (20:09)
[2018-12-09] MEDS ORDERED: MULT1TAB52 PO (20:09)
[2018-12-09] MEDS ORDERED: OLAN5TAB5 PO (20:10)
[2018-12-09] MEDS ORDERED: VENL37.5 PO (20:10)
[2018-12-09] MEDS ORDERED: ROPI0.25 PO (20:11)
[2018-12-09] MEDS ORDERED: HYDR50TA PO (20:11)
[2018-12-09 20:21] LABS: ALBUMIN/GLOBULIN RATIO 0.8 (1.0-1.7); CALCIUM 9.9 mg/dL (8.5-10.1); CREATININE 0.9 mg/dL (0.6-1.0); GFR 61.2; POTASSIUM 4.3 mmol/L (3.5-5.1); TOTAL BILIRUBIN 0.3 mg/dL (0.2-1.0); TOTAL PROTEIN 6.7 g/dL (6.4-8.2)
[2018-12-09 20:22] VITALS: BP 126/87
--- NOTE | 2018-12-09 21:03 | PDOC ---
Exam Note: Greg Note: Please also refer to the separate dictated note~for this date of service dictated separately.~Patient seen individually. Discussed the patient with Nursing staff reviewed the chart.~Reviewed interim history and current functioning. Reviewed vital signs,~Labs/ Radiology~and current medications noted below. Continue current treatment with the changes noted in the dictated addendum note Assessment: Vital Signs/I&O: Vital Signs Date Time Temp Pulse Resp B/P (MAP) Pulse Ox O2 Delivery O2 Flow Rate FiO2 12/09/18 20:22 99.3 110 18 126/87 (100) Room Air 12/09/18 16:02 96 I & O 12/08/18 12/08/18 12/09/18 14:59 22:59 06:59 Intake Total 120 ml 650 ml Balance 120 ml 650 ml Labs: Laboratory Tests Test 12/08/18 23:15 12/09/18 20:00 Urine Collection Type Unknown Urine Color Dominique Urine Clarity Turbid Urine pH 5.5 Urine Specific [place] >=1.030 Urine Protein >100 mg/dl (NEG-TRACE) Urine Glucose (UA) Neg mg/dL (NEG) Urine Ketones (Stick) 40 mg/dL (NEG) Urine Blood Large (NEG) Urine Nitrite Pos (NEG) Urine Bilirubin Neg (NEG) Urine Urobilinogen Dipstick 0.2 mg/dL (0.2 mg/dL) Urine Leukocyte Esterase Mod (NEG) Urine RBC 6-10 /HPF (0-2) Urine WBC Tntc /HPF (0-4) Urine Squamous Epithelial Cells None /LPF Urine Bacteria Mod /HPF (0-FEW) Urine Mucus Slight /LPF White Blood Count 6.7 x10^3/uL (4.0-11.0) Red Blood Count 4.51 x10^6/uL (3.50-5.40) Hemoglobin 12.4 g/dL (12.0-15.5) Hematocrit 38.1 % (36.0-47.0) Mean Corpuscular Volume 85 fL (79-100) Mean Corpuscular Hemoglobin 28 pg (25-35) Mean Corpuscular Hemoglobin Concent 33 g/dL (31-37) Red Cell Distribution Width 16.2 % (11.5-14.5) H Platelet Count 307 x10^3/uL (140-400) Neutrophils (%) (Auto) 74 % (31-73) H Lymphocytes (%) (Auto) 17 % (24-48) L Monocytes (%) (Auto) 8 % (0-9) Eosinophils (%) (Auto) 1 % (0-3) Basophils (%) (Auto) 0 % (0-3) Neutrophils # (Auto) 4.9 x10^3uL (1.8-7.7) Lymphocytes # (Auto) 1.1 x10^3/uL (1.0-4.8) Monocytes # (Auto) 0.5 x10^3/uL (0.0-1.1) Eosinophils # (Auto) 0.0 x10^3/uL (0.0-0.7) Basophils # (Auto) 0.0 x10^3/uL (0.0-0.2) Sodium Level 144 mmol/L (136-145) Potassium Level 4.3 mmol/L (3.5-5.1) Chloride Level 108 mmol/L (98-107) H Carbon Dioxide Level 26 mmol/L (21-32) Anion Gap 10 (6-14) Blood Urea Nitrogen 34 mg/dL (7-20) H Creatinine 0.9 mg/dL (0.6-1.0) Estimated GFR (Cockcroft-Gault) 61.2 BUN/Creatinine Ratio 38 (6-20) H Glucose Level 141 mg/dL (70-99) H Lactic Acid Level 1.9 mmol/L (0.4-2.0) Calcium Level 9.9 mg/dL (8.5-10.1) Total Bilirubin 0.3 mg/dL (0.2-1.0) Aspartate Amino Transferase (AST) 64 U/L (15-37) H Alanine Aminotransferase (ALT) 31 U/L (14-59) Alkaline Phosphatase 90 U/L (46-116) Creatine Kinase 638 U/L (26-192) H Total Protein 6.7 g/dL (6.4-8.2) Albumin 3.0 g/dL (3.4-5.0) L Albumin/Globulin Ratio 0.8 (1.0-1.7) L Current Medications: I have reviewed the current psychotropics carefully including drug interactions. Risk benefit ratio favors no change other than as noted in my dictated progress note. Diagnosis: Problems: (1) Major depression (2) Bipolar affective disorder, mixed (3) Anxiety disorder (4) Major depressive disorder, recurrent episode (5) Impulse control disorder (6) Mild cognitive impairment BRIAN CHAPA MD Dec 09, 2018 21:03
--- NOTE | 2018-12-09 21:56 | RAD ---
AP chest x-ray HISTORY: Cough, congestion, pneumonia. FINDINGS: Heart size normal. Mediastinal silhouette is normal. Skinfold artifact left upper lobe. No pneumothorax, pulmonary opacities or pleural effusions. Chin skiers the upper midline and medial lung apices. Bones unremarkable. IMPRESSION: No acute process. Electronically signed by: Bala Barillas MD (12/09/2018 9:53 PM) [facility]
--- NOTE | 2018-12-09 22:23 | PN ---
DATE: 12/08/2018 PSYCHIATRIC PROGRESS NOTE This late entry, 12/08/2018, covers elements not covered in my initial note. SUBJECTIVE: I met with the patient individually in her room at length. The patient slept 7-1/4 hours previous night, takes her medications crushed or in applesauce, somewhat withdrawn, yelling, agitated at breakfast time. She is paranoid, believes staff are trying to kill her because they have a neck brace on her. REVIEW OF SYSTEMS: Ambulation impaired, in wheelchair. No CV, , pulmonary, eye system symptoms on review. Does admit to tiredness, withdrawal. MENTAL STATUS EXAM: Oriented to herself and situation. Speech moderate latency, often responses monosyllabic. Abstraction fair, computation impaired, language function intact, attention span short. Mood and affect withdrawn. LABORATORY DATA: Reviewed. IMPRESSION: Unchanged from initial note. PLAN: No change from initial note. BRIAN CHAPA MD DR: ANTONIO/gianfranco JOB#: [id number] / [id number]
--- NOTE | 2018-12-09 22:25 | PN ---
DATE: 12/07/2018 PSYCHIATRIC PROGRESS NOTE This late entry 12/07/2018 covers elements not covered in my initial note. SUBJECTIVE: I met with the patient in the evening of 12/07/2018. The patient slept 6-1/2 hours previous night. She is compliant with medications, somewhat isolative. REVIEW OF SYSTEMS: Ambulation impaired, in wheelchair. No CV, , pulmonary, eye system symptoms on review. MENTAL STATUS EXAM: The patient was seen individually. She is seated in a wheelchair, head bent forward trying to feed herself. Speech moderate latency, often responses monosyllabic. Abstraction fair, computation impaired, language function intact. Mood and affect somewhat withdrawn. LABORATORY DATA: Reviewed. IMPRESSION: Bipolar 1 disorder, mixed with psychotic features, depressed; anxiety disorder, unspecified; mild cognitive impairment, past history of ECT treatment. PLAN: Continue current psychotropics for now. Depakote has been initiated. Follow labs level on the . Adjust to reach therapeutic level. Klonopin is being tapered. BRIAN CHAPA MD DR: ANTONIO/gianfranco JOB#: [id number] / [id number]
--- NOTE | 2018-12-10 20:39 | DS ---
DATE OF DISCHARGE: 12/09/2018 REASON FOR ADMISSION: Please refer to the admission history for details. Briefly, the patient is a 73-year-old female referred to us from [facility] where she presented from [facility] after she tried to wrap a call light around her neck, stating "I want to ." The patient was nevertheless afraid to . She reports being bored with her current placement, not enjoying life, feeling hopeless, helpless, and worthless and having failed outpatient psychiatric interventions. She was referred for inpatient psychiatric stabilization. SIGNIFICANT FINDINGS AND CLINICAL COURSE: Following admission, the patient was seen daily individually by myself from a psychiatric standpoint, Medical followup with Dr. Lezama. The patient was noted to be quite withdrawn, irritable, angry, depressed, sitting head bent forward in the wheelchair. Reviewed her past history, positive for bipolar disorder with past ECT treatment. She also has Parkinson's disease was followed by Dr. Barajas from a neurological standpoint. Adjustments were made in her psychotropics and the Klonopin was gradually tapered. She was started on Depakote Sprinkles 500 mg daily with a plan to adjust this and maintained on hydroxyzine, Effexor was adjusted together with Seroquel and Remeron. She is on Sinemet and Requip for her Parkinson's. On 12/09/2018, the patient was found to have some sweating and blood pressure changes. There is a question whether she had a UTI. Culture was awaited. Chest x-ray was unremarkable. Creatinine kinase was elevated. We ordered a prolactin level as well. At this stage, she was transferred to ICU per Dr. Lezama for further medical stabilization and prior to discharge, Seroquel was discontinued and Klonopin taper stopped until she was medically stabilized and then we could restart the taper. REVIEW OF SYSTEMS: Prior to discharge on 12/09/2018, ambulation impaired, in wheelchair. I met with her in her room. No CV, , pulmonary, eye system symptoms on review. MENTAL STATUS EXAM: She remains quite withdrawn. Poor eye contact. Speech moderate latency, often responses monosyllabic. Abstraction fair, computation impaired, language function intact. Mood and affect withdrawn. No suicidal or homicidal ideation. She remains somewhat paranoid. LABORATORY DATA: Reviewed. FINAL DIAGNOSES: Bipolar 1 disorder, depressed with psychotic features; anxiety disorder, unspecified; mild cognitive impairment, impulse control disorder. Rest diagnoses as noted above. DISCHARGE MEDICATIONS: Please refer to the MRAD. Seroquel was stopped prior to discharge and the Klonopin taper was stopped and she was maintained on scheduled dosage of Klonopin, which could be tapered again post medical stabilization. Time for discharge day management greater than 30 minutes. I will follow her in ICU if requested from a psychiatric standpoint and medical followup with Dr. Lezama. MAN Vidal CHAPA MD DR: ANTONIO/gianfranco JOB#: [id number] / [id number]
== END 2018-12-09 21:45 | disposition short-term general hospital (02) | DRG 885 ==
LOC: GEROPSY 03:14 → TMPLOALOC 12-09 21:45 → UNDOLOA 12-09 21:45 → GEROPSY 12-09 21:45 → UNDODISIN 12-09 21:45 → TMPLOALOC 12-09 22:21 → UNDOLOA 12-09 22:21 → ICU 12-09 22:21
PROVIDERS: ADMIT Psychiatry & Neurology Psychiatry; ATTEND Psychiatry & Neurology Psychiatry
DX: F31.5 Bipolar disorder, current episode depressed, severe, with psychotic features (principal); F41.9 Anxiety disorder, unspecified; F63.9 Impulse disorder, unspecified; G31.84 Mild cognitive impairment of uncertain or unknown etiology; I10 Essential (primary) hypertension; G20 Parkinson's disease; D50.9 Iron deficiency anemia, unspecified; E78.5 Hyperlipidemia, unspecified; K21.9 Gastro-esophageal reflux disease without esophagitis; K59.09 Other constipation; Z62.810 Personal history of physical and sexual abuse in childhood; Z66 Do not resuscitate; Z87.440 Personal history of urinary (tract) infections; Z91.410 Personal history of adult physical and sexual abuse; Z88.8 Allergy status to other drugs, medicaments and biological substances
CPT/HCPCS: 36415; 71045; 74018; 74176; 76770; 80053; 80061; 80164; 81001; 82140; 82306; 82550; 83036; 83540; 83550; 83605; 83735; 84146; 84436; 84443; 84480; 85025; 86592; 87040; 87086; Q0161; 97110; 97530; 99285-25

== ENCOUNTER 2018-12-09 22:54 | Inpatient (IN) | payer MEDICARE ==
[~2018-12-09] VITALS: Ht 165.1 cm; Wt 61.7 kg
[~2018-12-09 22:54] MED LIST changes: +ACET-1574 PO; +ASCO500T3 PO; +ASEN10TA9 SL; +ASEN5TAB7 SL; +BISA10SU55 RC; +CALC500T31 PO; +CARB1DRO OP; +CARB1TAB2 PO; +CHLO25AM IJ; +CHLO25TA4 PO; +CHOL500016 PO; +CLON1TAB PO; +DESV50TA PO; +DIVA125C2 PO; +DOCU-109 PO; +GABA-586 PO; +HYDR50TA PO; +IBUP400T18 PO; +LACT10SO35 PO; +LACT1CAP21 PO; +LIDO700A21 TP; +LORA2VIA IJ; +MAG355OR12 PO; +MIRT15TA PO; +MULT1TAB52 PO; +ROPI0.25 PO; +VENL37.5 PO
[2018-12-09 23:15] VITALS: BP 111/57
[2018-12-10] VITALS (8 sets, daily range): BP systolic 109–142; BP diastolic 51–63
[2018-12-10] MEDS: IV NORMAL SALINE 1,000ML 1,000 ML IV SCH ×4 (00:18→22:31)
[2018-12-10] MEDS: MEROPENEM 1 GM in IV NORMAL SALINE 100ML 100 ML IV SCH ×3 (00:19→21:02)
[2018-12-10] MEDS ORDERED: MAG HYDROX/AL HYDROX/SIMETH 30 ML ORAL.SUSP PO PRN (10:00)
[2018-12-10] MEDS ORDERED: POLYVINYL ALCOHOL 1.4% OPHTH SOLUTION 15ML BOTTLE. OU SCH (10:00)
[2018-12-10] MEDS ORDERED: BISACODYL 10 MG SUPP.RECT RC PRN (10:00)
[2018-12-10] MEDS ORDERED: hydrOXYzine HCL 25 MG TABLET PO PRN (10:00)
[2018-12-10] MEDS ORDERED: CALCIUM CARBONATE 500 MG TABLET PO PRN (10:00)
[2018-12-10] MEDS ORDERED: CARBIDOPA/LEVODOPA 25/100MG TABLET PO SCH (10:00)
[2018-12-10] MEDS ORDERED: MAGNESIUM HYDROXIDE 2,400 MG/30 ML ORAL.SUSP. PO PRN (10:00)
[2018-12-10] MEDS ORDERED: clonazePAM 1 MG TABLET PO SCH (10:00)
[2018-12-10] MEDS ORDERED: clonazePAM 1 MG TABLET PO PRN (10:00)
[2018-12-10] MEDS ORDERED: rOPINIRole 0.25 MG TABLET. PO SCH (10:00)
[2018-12-10] MEDS ORDERED: IBUPROFEN 400 MG TABLET. PO PRN ×2 (10:00)
[2018-12-10] MEDS ORDERED: ACETAMINOPHEN 325 MG TABLET PO PRN (10:30)
[2018-12-10] MEDS ORDERED: POLYVINYL ALCOHOL 1.4% OPHTH SOLUTION 15ML BOTTLE. OU PRN (10:45)
[2018-12-10] MEDS: LIDOCAINE (700MG/PATCH) PATCH. TP SCH (10:48)
[2018-12-10] MEDS: LACTOBACILLUS RHAMNOSUS GG 1 CAPSULE. PO SCH (10:48)
[2018-12-10] MEDS: DIVALPROEX 125 MG CAP.SPRINK PO SCH (10:49)
[2018-12-10] MEDS: ASCORBIC ACID 500 MG TABLET PO SCH ×2 (10:49→21:04)
[2018-12-10] MEDS: QUEtiapine 25 MG TABLET. PO SCH ×3 (10:49→17:00)
[2018-12-10] MEDS: rOPINIRole 0.5 MG TABLET. PO SCH ×3 (10:49→21:03)
[2018-12-10] MEDS: VENLAFAXINE XR 37.5 MG CAP.ER.24H. PO SCH ×2 (10:50→21:03)
[2018-12-10] MEDS: METOPROLOL TART IMMED RELEASE 25 MG TABLET PO SCH ×2 (10:50→21:04)
[2018-12-10] MEDS: MULTIVITAMIN with MINERAL TABLET. PO SCH (10:51)
[2018-12-10] MEDS: DOCUSATE SODIUM 100 MG CAPSULE PO SCH (10:51)
[2018-12-10] MEDS: clonazePAM 1 MG TABLET PO SCH ×2 (10:51→21:03)
[2018-12-10] MEDS: GABAPENTIN 300 MG CAPSULE. PO SCH ×3 (10:51→21:03)
[2018-12-10] MEDS: LACTULOSE 20 GM/30 ML SOLUTION. PO SCH (10:52)
[2018-12-10 11:05] LABS: BASO % 1 % (0-3); EOS % 1 % (0-3); HEMATOCRIT 34.9 % (36.0-47.0); HEMOGLOBIN 11.2 g/dL (12.0-15.5); LYMPH # 0.7 x10^3/uL (1.0-4.8); LYMPH % 15 % (24-48); MEAN CORPUSCULAR HEMOGLOBIN 28 pg (25-35); MEAN CORPUSCULAR HGB CONC 32 g/dL (31-37); MEAN CORPUSCULAR VOLUME 86 fL (79-100); MONO # 0.3 x10^3/uL (0.0-1.1); MONO % 8 % (0-9); NEUT # 3.6 x10^3uL (1.8-7.7); NEUT % 77 % (31-73); PLATELET COUNT 264 x10^3/uL (140-400); RED BLOOD COUNT 4.05 x10^6/uL (3.50-5.40); RED CELL DISTRIBUTION WIDTH 16.4 % (11.5-14.5); WHITE BLOOD COUNT 4.7 x10^3/uL (4.0-11.0)
[2018-12-10 11:16] LABS: ALBUMIN 2.6 g/dL (3.4-5.0); ALBUMIN/GLOBULIN RATIO 0.9 (1.0-1.7); CALCIUM 8.8 mg/dL (8.5-10.1); CREATININE 0.8 mg/dL (0.6-1.0); GFR 70.1; POTASSIUM 4.4 mmol/L (3.5-5.1); TOTAL BILIRUBIN 0.2 mg/dL (0.2-1.0); TOTAL PROTEIN 5.6 g/dL (6.4-8.2)
[2018-12-10] MEDS: CARBIDOPA/LEVODOPA 25/100MG TABLET PO SCH ×4 (12:11→21:04)
[2018-12-10] MEDS: POLYVINYL ALCOHOL 1.4% OPHTH SOLUTION 15ML BOTTLE. OU SCH ×2 (15:35→21:02)
[2018-12-10] MEDS: MIRTAZAPINE 7.5 MG TABLET. PO SCH (21:03)
--- NOTE | 2018-12-10 22:20 | PDOC ---
Exam Note: Greg Note: Please also refer to the separate dictated note~for this date of service dictated separately.~Patient seen individually. Discussed the patient with Nursing staff reviewed the chart.~Reviewed interim history and current functioning. Reviewed vital signs,~Labs/ Radiology~and current medications noted below. Continue current treatment with the changes noted in the dictated addendum note Assessment: Vital Signs/I&O: Vital Signs Date Time Temp Pulse Resp B/P (MAP) Pulse Ox O2 Delivery O2 Flow Rate FiO2 12/10/18 21:04 85 116/58 12/10/18 20:00 Room Air 12/10/18 18:58 97.4 14 97 I & O 12/09/18 12/09/18 12/10/18 15:00 23:00 07:00 Intake Total 275 ml Output Total 150 ml Balance 125 ml Labs: Laboratory Tests Test 12/09/18 23:00 12/10/18 10:55 Nasal Screen MRSA (PCR) Negative (Negative) White Blood Count 4.7 x10^3/uL (4.0-11.0) Red Blood Count 4.05 x10^6/uL (3.50-5.40) Hemoglobin 11.2 g/dL (12.0-15.5) L Hematocrit 34.9 % (36.0-47.0) L Mean Corpuscular Volume 86 fL (79-100) Mean Corpuscular Hemoglobin 28 pg (25-35) Mean Corpuscular Hemoglobin Concent 32 g/dL (31-37) Red Cell Distribution Width 16.4 % (11.5-14.5) H Platelet Count 264 x10^3/uL (140-400) Neutrophils (%) (Auto) 77 % (31-73) H Lymphocytes (%) (Auto) 15 % (24-48) L Monocytes (%) (Auto) 8 % (0-9) Eosinophils (%) (Auto) 1 % (0-3) Basophils (%) (Auto) 1 % (0-3) Neutrophils # (Auto) 3.6 x10^3uL (1.8-7.7) Lymphocytes # (Auto) 0.7 x10^3/uL (1.0-4.8) L Monocytes # (Auto) 0.3 x10^3/uL (0.0-1.1) Eosinophils # (Auto) 0.0 x10^3/uL (0.0-0.7) Basophils # (Auto) 0.0 x10^3/uL (0.0-0.2) Sodium Level 144 mmol/L (136-145) Potassium Level 4.4 mmol/L (3.5-5.1) Chloride Level 111 mmol/L (98-107) H Carbon Dioxide Level 25 mmol/L (21-32) Anion Gap 8 (6-14) Blood Urea Nitrogen 26 mg/dL (7-20) H Creatinine 0.8 mg/dL (0.6-1.0) Estimated GFR (Cockcroft-Gault) 70.1 BUN/Creatinine Ratio 33 (6-20) H Glucose Level 112 mg/dL (70-99) H Calcium Level 8.8 mg/dL (8.5-10.1) Total Bilirubin 0.2 mg/dL (0.2-1.0) Aspartate Amino Transferase (AST) 46 U/L (15-37) H Alanine Aminotransferase (ALT) 44 U/L (14-59) Alkaline Phosphatase 74 U/L (46-116) Creatine Kinase 389 U/L (26-192) H Total Protein 5.6 g/dL (6.4-8.2) L Albumin 2.6 g/dL (3.4-5.0) L Albumin/Globulin Ratio 0.9 (1.0-1.7) L Current Medications: Meds: Current Medications Medications (Trade) Dose Ordered Sig/Irma Route PRN Reason Start Time Stop Time Status Last Admin Dose Admin Meropenem 1 gm/ Sodium Chloride 100 ml @ 200 mls/hr Q12HR IV 12/10/18 00:00 12/10/18 21:04 Sodium Chloride 1,000 ml @ 100 mls/hr Q10H IV 12/09/18 23:45 12/10/18 09:09 Ascorbic Acid (Vitamin C) 500 mg BID PO 12/10/18 10:00 12/10/18 21:04 Divalproex Sodium (Depakote Sprinkles) 500 mg DAILY PO 12/10/18 10:00 12/10/18 11:00 Docusate Sodium (Colace) 100 mg DAILY PO 12/10/18 10:00 12/10/18 11:00 Gabapentin (Neurontin) 300 mg TID PO 12/10/18 10:00 12/10/18 21:04 Ibuprofen (Motrin) 400 mg PRN Q6HRS PRN PO PAIN 12/10/18 10:00 12/10/18 21:04 Lidocaine (Lidoderm) 1 patch DAILY TP 12/10/18 10:00 12/10/18 11:00 Metoprolol Tartrate (Lopressor) 12.5 mg BID PO 12/10/18 10:00 12/10/18 21:04 Mirtazapine (Remeron) 7.5 mg QHS PO 12/10/18 21:00 12/10/18 21:04 Venlafaxine HCl (Effexor Xr) 37.5 mg BID PO 12/10/18 10:00 12/10/18 21:04 Lactobacillus Rhamnosus (Culturelle) 1 cap DAILY PO 12/10/18 10:00 12/10/18 11:00 Lactulose (Lactulose) 30 gm DAILY PO 12/10/18 10:30 12/10/18 11:00 Multivitamins/ Calcium (Thera-M Plus) 1 tab DAILY PO 12/10/18 10:00 12/10/18 11:00 Ropinirole HCl (Requip) 0.5 mg TID PO 12/10/18 10:00 12/10/18 21:04 Clonazepam (KlonoPIN) 0.5 mg BID PO 12/10/18 10:30 12/10/18 21:04 Quetiapine Fumarate (SEROquel) 12.5 mg TID@0900,1300,1700 PO 12/10/18 10:30 12/10/18 18:48 DC 12/10/18 15:35 Carbidopa/Levodopa (Sinemet 25/100) 1 tab 0600,0900,1200,1500 PO 12/10/18 12:00 12/10/18 15:35 Carbidopa/Levodopa (Sinemet 25/100) 1 tab 1800,2100 PO 12/10/18 18:00 12/10/18 21:04 Artificial Tears (Artificial Tears) 2 drop TID OU 12/10/18 10:44 12/10/18 21:04 Fentanyl Citrate (Fentanyl 2ml Vial) 50 mcg PRN Q3HRS PRN IV PAIN 12/10/18 16:15 12/10/18 18:01 I have reviewed the current psychotropics carefully including drug interactions. Risk benefit ratio favors no change other than as noted in my dictated progress note. Diagnosis: Problems: (1) Major depression (2) Bipolar affective disorder, mixed (3) Anxiety disorder (4) Major depressive disorder, recurrent episode (5) Impulse control disorder (6) Mild cognitive impairment BRIAN CHAPA MD Dec 10, 2018 22:19
[2018-12-10] MEDS: METHYL SALICYLATE/MENTHOL TOPICAL OINTMENT 29GM TUBE. TP PRN (23:14)
[2018-12-11] VITALS (7 sets, daily range): BP systolic 113–149; BP diastolic 59–75
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
[2018-12-11] MEDS: CARBIDOPA/LEVODOPA 25/100MG TABLET PO SCH ×6 (05:50→19:48)
--- NOTE | 2018-12-11 06:12 | PN ---
DATE: 12/10/2018 SUBJECTIVE: The patient is resting, slightly propped up in bed, no apparent distress. On questioning her, she is complaining that she is aching all over. She denied any chest pain or shortness of breath. Denied any abdominal pain. PHYSICAL EXAMINATION: GENERAL: When I examined her, she was pale, but not jaundiced, cyanosis or thyromegaly. No jugular venous distention. No limb edema. VITAL SIGNS: Her heart rate was 109, blood pressure was 137/58, temperature was 98.6, respiratory rate was 18 and oxygen saturation was 97%. HEAD, EYES, EARS, NOSE AND THROAT: Showed normocephalic, atraumatic. NECK: Supple. HEART: Showed normal first and second heart sounds. No gallop or murmur. CHEST: Clear to auscultation. No crepitation or rhonchi. ABDOMEN: Distended, soft, nontender. No organomegaly. She does have dullness to percussion noted in the lower abdomen, corresponding with a mass that was discovered on the CT scan. However, there is no guarding or rigidity. Bowel sounds are normal. NEUROLOGIC: She is awake, alert, responding appropriately. All her cranial nerves intact. She has parkinsonian features and parkinsonian tremors. Her intake and output were incompletely recorded. LABORATORY DATA: Her lab work this morning showed a white cell count 4700, hemoglobin 11, hematocrit 35, MCV 86 and platelet count 264,000. Her chemistry showed a serum sodium 144, potassium 4.4, chloride 111, bicarbonate 25, anion gap of 8, BUN 26, creatinine 0.8, estimated GFR was 70 mL per minute. Her glucose 112, calcium was 8.8. Total bilirubin, AST, ALT, alkaline phosphatase were normal. CK is down to 389. Total protein was 5.6, albumin was 2.6. Her nasal screen for MRSA PCR was negative. PLAN: To continue with IV fluid for now. Continue with meropenem. Continue with all other medications. We will wait for the result of the urine culture to decide on today's ____ antibiotic and await meeting with her family to decide on goals of care. MATTIE STEVENS MD DR: CHAVA/gianfranco JOB#: [id number] / [id number]
[2018-12-11 06:52] LABS: CALCIUM 8.7 mg/dL (8.5-10.1); CREATININE 0.8 mg/dL (0.6-1.0); GFR 70.1; POTASSIUM 3.9 mmol/L (3.5-5.1)
[2018-12-11] MEDS: LIDOCAINE (700MG/PATCH) PATCH. TP SCH ×2 (09:00→09:19)
[2018-12-11] MEDS ORDERED: CHOLECALCIFEROL (VITAMIN D3) 50,000 UNIT CAPSULE PO SCH (09:00)
[2018-12-11] MEDS: MEROPENEM 1 GM in IV NORMAL SALINE 100ML 100 ML IV SCH ×2 (09:12→19:49)
[2018-12-11] MEDS: clonazePAM 1 MG TABLET PO SCH ×2 (09:13→19:48)
[2018-12-11] MEDS: ASCORBIC ACID 500 MG TABLET PO SCH ×2 (09:13→19:48)
[2018-12-11] MEDS: VENLAFAXINE XR 37.5 MG CAP.ER.24H. PO SCH ×2 (09:13→19:48)
[2018-12-11] MEDS: LACTOBACILLUS RHAMNOSUS GG 1 CAPSULE. PO SCH (09:14)
[2018-12-11] MEDS: rOPINIRole 0.5 MG TABLET. PO SCH ×3 (09:14→19:48)
[2018-12-11] MEDS: GABAPENTIN 300 MG CAPSULE. PO SCH ×3 (09:14→19:48)
[2018-12-11] MEDS: DIVALPROEX 125 MG CAP.SPRINK PO SCH (09:14)
[2018-12-11] MEDS: METOPROLOL TART IMMED RELEASE 25 MG TABLET PO SCH ×2 (09:14→19:48)
[2018-12-11] MEDS: MULTIVITAMIN with MINERAL TABLET. PO SCH (09:14)
[2018-12-11] MEDS: LACTULOSE 20 GM/30 ML SOLUTION. PO SCH (09:15)
[2018-12-11] MEDS: DOCUSATE SODIUM 100 MG CAPSULE PO SCH (09:15)
[2018-12-11] MEDS: POLYVINYL ALCOHOL 1.4% OPHTH SOLUTION 15ML BOTTLE. OU SCH ×3 (09:19→19:47)
[2018-12-11] MEDS ORDERED: KETOROLAC 30 MG/ML VIAL. ONE (11:46)
[2018-12-11] MEDS: IV NORMAL SALINE 1,000ML 1,000 ML IV SCH (11:56)
[2018-12-11] MEDS: KETOROLAC 30 MG/ML VIAL. IV PRN ×2 (11:58→19:47)
--- NOTE | 2018-12-11 15:26 | PN ---
DATE: 12/10/2018 PSYCHIATRIC PROGRESS NOTE This late entry 12/10/2018 covers elements not covered in my initial note. SUBJECTIVE: I met with the patient evening of 12/10/2018 in ICU bed 3. Discussed with nursing staff, reviewed the chart, also met with the patient's sister who was visiting her in the ICU. Per nursing report, the patient has UTI, which probably contributed to her symptoms prompting transfer to the ICU from the [facility]. I have been asked to follow the patient from a psychiatric consult by Dr. Lezama. Additionally, nursing staff states Dr. Barajas wondered whether the patient's Parkinson's medications could be adversely affected by the Seroquel she was on. In fact, I had recommended stopping the Seroquel prior to her transfer to the ICU, which she received 1 dose since being in the ICU. We will go ahead and stop it. Otherwise, she is doing reasonably from a psychiatric standpoint. REVIEW OF SYSTEMS: Positive for tiredness, feeling a little dizzy, but otherwise no CV, , pulmonary, eye system symptoms on review. MENTAL STATUS EXAM: Oriented to herself and situation. Speech has some latency, low in rate and rhythm, low in volume. Abstraction fair, computation impaired, language function intact. Mood and affect withdrawn. LABORATORY DATA: Reviewed. 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 Rest unchanged including urinary tract infection and Parkinson's disease. RECOMMENDATION: From a psychiatric standpoint, we will go ahead and stop the Seroquel. Maintain rest of the psychotropics unchanged for now per initial note. MAN Vidal CHAPA MD DR: ANTONIO/gianfranco JOB#: [id number] / [id number]
--- NOTE | 2018-12-11 18:25 | PDOC ---
Exam Note: Greg Note: Please also refer to the separate dictated note~for this date of service dictated separately.~Patient seen individually. Discussed the patient with Nursing staff reviewed the chart.~Reviewed interim history and current functioning. Reviewed vital signs,~Labs/ Radiology~and current medications noted below. Continue current treatment with the changes noted in the dictated addendum note Assessment: Vital Signs/I&O: Vital Signs Date Time Temp Pulse Resp B/P (MAP) Pulse Ox O2 Delivery O2 Flow Rate FiO2 12/11/18 14:44 86 24 113/65 (81) 97 12/11/18 11:12 Room Air 12/11/18 05:50 97.9 I & O 12/10/18 12/10/18 12/11/18 15:00 23:00 07:00 Intake Total 1580 ml 1351 ml 861 ml Output Total 500 ml 700 ml 350 ml Balance 1080 ml 651 ml 511 ml Labs: Laboratory Tests Test 12/11/18 05:18 Sodium Level 143 mmol/L (136-145) Potassium Level 3.9 mmol/L (3.5-5.1) Chloride Level 111 mmol/L (98-107) H Carbon Dioxide Level 25 mmol/L (21-32) Anion Gap 7 (6-14) Blood Urea Nitrogen 22 mg/dL (7-20) H Creatinine 0.8 mg/dL (0.6-1.0) Estimated GFR (Cockcroft-Gault) 70.1 Glucose Level 107 mg/dL (70-99) H Calcium Level 8.7 mg/dL (8.5-10.1) Creatine Kinase 178 U/L (26-192) Current Medications: Meds: Current Medications Medications (Trade) Dose Ordered Sig/Irma Route PRN Reason Start Time Stop Time Status Last Admin Dose Admin Mirtazapine (Remeron) 7.5 mg QHS PO 12/10/18 21:00 12/10/18 21:04 Vitamin D (Vitamin D3) 50,000 unit WEEKLY PO 12/11/18 09:00 12/11/18 09:19 Ketorolac Tromethamine (Toradol 30mg Vial) 30 mg PRN Q6HRS PRN IV PAIN 12/11/18 12:00 12/16/18 11:59 12/11/18 11:58 I have reviewed the current psychotropics carefully including drug interactions. Risk benefit ratio favors no change other than as noted in my dictated progress note. Diagnosis: Problems: (1) Mild cognitive impairment (2) Impulse control disorder (3) Major depressive disorder, recurrent episode (4) Anxiety disorder (5) Bipolar affective disorder, mixed BRIAN CHAPA MD Dec 11, 2018 18:25
[2018-12-11] MEDS: METHYL SALICYLATE/MENTHOL TOPICAL OINTMENT 29GM TUBE. TP PRN (19:47)
[2018-12-11] MEDS: MIRTAZAPINE 7.5 MG TABLET. PO SCH (19:48)
[2018-12-11 22:10] LABS: CA 125 480.1 U/mL (0.0-38.1)
[2018-12-12] MEDS: IV NORMAL SALINE 1,000ML 1,000 ML IV SCH ×2 (02:09→11:45)
--- NOTE | 2018-12-12 02:14 | PN ---
DATE: SUBJECTIVE: The patient is resting, slightly propped up in bed, in no apparent respiratory distress. She is sleepy, but arousable. On questioning her, denied any complaint. Nursing staff did not voice any concerns and she had an uneventful night. She continued to be on IV meropenem. I sent the tumor marker, they are sent out and will not be available probably until tomorrow or perhaps even . Her urine culture is still pending at this time. Her blood culture showed no growth so far. PHYSICAL EXAMINATION: GENERAL: When I examined her this afternoon, she was pale, not jaundiced, cyanosed or thyromegaly. No jugular venous distention. No lower limb edema. VITAL SIGNS: Her heart rate was 66, blood pressure was 115/65, temperature was 97.9, respiratory rate was 24, and oxygen saturation was 97%. HEAD, EYES, EARS, NOSE AND THROAT: Showed normocephalic, atraumatic. NECK: Supple. HEART: Showed normal first and second heart sounds with no gallop, rub or murmur. CHEST: Clear to auscultation. No crepitation or rhonchi. ABDOMEN: Distended, soft, nontender. No guarding or rigidity. No organomegaly. All hernial orifices intact. Bowel sounds normal. NEUROLOGIC: She was sleepy, but arousable. All cranial nerves are intact. She moves upper extremities to a much good extent than lower extremities. She is mostly bedbound. Her intake over the last 24 hours was 3800, output was 1650. LABORATORY DATA: Her chemistry this morning showed a serum sodium 143, potassium 3.9, chloride 111, bicarbonate 25, anion gap of 7, BUN 22, creatinine 0.8, estimated GFR was 70 mL per minute. Her glucose 107, calcium was 8.7. CK was down to 178. ASSESSMENT: 1. Urinary tract infection for which she is on IV meropenem. 2. Large ovarian tumor of unknown nature, sent tumor marker, results were still pending. 3. Urinary retention for which she has an indwelling Manzo catheter. 4. Hyperlipidemia. 5. Hypertension. 6. Parkinson's disease. 7. Chronic constipation. 8. Gastroesophageal reflux disease, dysphagia and xerophthalmia. PLAN: To continue with IV antibiotic. Await the result of the tumor marker and the urine culture and sensitivity. If they become available tomorrow, we will discuss with the family and make a decision as to the disposition. The family seemed to be leaning towards hospice care. MATTIE STEVENS MD DR: CHAVA/gianfranco JOB#: [id number] / [id number]
[2018-12-12] MEDS: CARBIDOPA/LEVODOPA 25/100MG TABLET PO SCH ×4 (05:41→14:53)
[2018-12-12 06:02] VITALS: BP 132/69
[2018-12-12 06:24] LABS: CALCIUM 8.3 mg/dL (8.5-10.1); CREATININE 0.7 mg/dL (0.6-1.0); GFR 81.8
[2018-12-12] MEDS: KETOROLAC 30 MG/ML VIAL. IV PRN ×2 (06:52→12:10)
[2018-12-12] MEDS: LACTULOSE 20 GM/30 ML SOLUTION. PO SCH (09:00)
[2018-12-12] MEDS: DIVALPROEX 125 MG CAP.SPRINK PO SCH (09:23)
[2018-12-12] MEDS: LACTOBACILLUS RHAMNOSUS GG 1 CAPSULE. PO SCH (09:23)
[2018-12-12] MEDS: ASCORBIC ACID 500 MG TABLET PO SCH (09:24)
[2018-12-12] MEDS: VENLAFAXINE XR 37.5 MG CAP.ER.24H. PO SCH (09:24)
[2018-12-12] MEDS: METOPROLOL TART IMMED RELEASE 25 MG TABLET PO SCH (09:24)
[2018-12-12] MEDS: clonazePAM 1 MG TABLET PO SCH (09:24)
[2018-12-12] MEDS: DOCUSATE SODIUM 100 MG CAPSULE PO SCH (09:24)
[2018-12-12] MEDS: LIDOCAINE (700MG/PATCH) PATCH. TP SCH (09:24)
[2018-12-12] MEDS: MULTIVITAMIN with MINERAL TABLET. PO SCH (09:24)
[2018-12-12] MEDS: GABAPENTIN 300 MG CAPSULE. PO SCH ×2 (09:24→14:53)
[2018-12-12] MEDS: MEROPENEM 1 GM in IV NORMAL SALINE 100ML 100 ML IV SCH (09:24)
[2018-12-12] MEDS: rOPINIRole 0.5 MG TABLET. PO SCH ×2 (09:24→14:53)
[2018-12-12] MEDS: POLYVINYL ALCOHOL 1.4% OPHTH SOLUTION 15ML BOTTLE. OU SCH ×2 (09:25→14:00)
[2018-12-12 12:09] VITALS: BP 110/57
--- NOTE | 2018-12-12 21:14 | DS ---
DATE OF DISCHARGE: 12/12/2018 HOSPITAL COURSE: The patient is a 73-year-old female patient who was originally admitted to [facility] through the Emergency Room as she tried to wrap a call light around her neck, stating that "I want to ", but is afraid to . She reports boredom with current placement and not enjoying her life, and all this in a background of bipolar disorder, depression. She was noted to be oliguric and initially, we did straight catheterization, about 900 mL of urine came out and another time Manzo catheter was placed but the urine output was not great, so we did a KUB, which basically showed that the bladder is not well demonstrated by radiograph. There was a loss of tissue density in the lower abdomen and there are no distended small bowel loops and there is gas distally, so we did actually an ultrasound, which showed that the kidneys are normal. The kidneys have normal cortical echogenicity without apparent mass or obstruction. The right kidney measured 9.9. Left kidney was 9.3. However, there was a fluid filled structure arising from the pelvis at the midline suspected to represent a distended urinary bladder. This measures 16 x 16 x 8; however, the patient has already had a Manzo catheter and was draining urine and therefore, we ordered a CT scan of the abdomen and pelvis without contrast, showed that there is a large cystic-appearing abnormality extending up from the pelvis, which showed some peripheral calcification. Ovarian neoplasm was a consideration. The bladder was decompressed with a Manzo catheter and the Manzo catheter balloon placed and the patient was noted to be drooling, tremulous and had low-grade fever and therefore, we did some lab work and she was transferred to ICU for possible sepsis and possible neuroleptic malignant syndrome. Her CK was only 638. We started her on IV fluid and IV antibiotic in the form of meropenem as she is allergic to multiple antibiotics including the CEPHALOSPORINS. We did order tumor marker CA-125 antigen, was found to be 480, with the normal range between 0.0-38. I spoke with her sister and her son and both wanted the patient to be transferred to higher level of care to consult a tripe scraper and perhaps the oncologist and therefore, the patient will be transferred to [facility] to consult the tripe scraper and oncologist and perhaps interventional radiologist if the biopsy is feasible. PHYSICAL EXAMINATION: GENERAL: When I saw her today, she was resting, slightly propped up in bed, in no apparent respiratory distress. No pallor, jaundice, cyanosis or thyromegaly. No jugular venous distension. No limb edema. VITAL SIGNS: Her heart rate was 77, blood pressure was 110/57, temperature was 98.1, respiratory rate was 18 and oxygen saturation was 97%. HEAD, EYES, EARS, NOSE AND THROAT: Showed normocephalic, atraumatic. NECK: Supple. HEART: Showed normal first and second heart sounds. No gallop, rub or murmur. CHEST: Clear to auscultation. No crepitation or rhonchi. ABDOMEN: Distended, soft, nontender. NEUROLOGIC: She is awake, alert, responds at times appropriately. All cranial nerves intact. She moves extremities without difficulty, though she is mostly bedbound. Her intake was 3880, output was 1300. LABORATORY DATA: As of this morning, her serum sodium 141, potassium 4, chloride 109, bicarbonate 26, anion gap of 6, BUN 20, creatinine 0.7, estimated GFR was 81 mL per minute. Her glucose was 88, calcium was 8.3. Her white cell count was 4700, hemoglobin 11, hematocrit 35, MCV 86 and platelet count 264,000. Her nasal screen for MRSA with PCR was negative; however, her CA-125 antigen was extremely elevated at 418. DISCHARGE MEDICATIONS: She was transferred to [facility] to continue with vitamin D 50,000 International Units once a week; mirtazapine 7.5 mg at bedtime; carbidopa/levodopa 25/100 one tablet scheduled at 6 and 9 in the evening, she had carbidopa/levodopa 1 tablet at 6, 9, 12 and 15; artificial tears 2 drops to both eyes every 15 minutes as needed; artificial tears 2 drops 3 times a day scheduled; clonazepam 0.5 mg twice a day; lactulose 30 grams p.o. daily; acetaminophen 650 mg every 6 hours; Requip 0.5 mg 3 times a day; multivitamin 1 tablet once a day; lactobacillus rhamnosus 1 capsule daily; hydroxyzine 50 mg every 6 hours; venlafaxine 37.5 mg twice a day; olanzapine 2.5 mg every 2 hours; metoprolol tartrate 12.5 mg twice a day; milk of magnesia 30 mL p.o. daily p.r.n. for constipation; Mylanta 15 mL after meals as needed; Lidoderm patch applied topically daily; ibuprofen 400 mg every 6 hours; gabapentin 300 mg 3 times a day; Colace 100 mg daily; divalproex sodium 500 mg daily; clonazepam 1 mg once a day; bisacodyl 10 mg suppository daily p.r.n. for constipation; ascorbic acid 500 mg twice a day. She is also on meropenem 1 gram IV q. 12 hourly. She is also on sodium chloride 100 mL IV hourly. FINAL DISCHARGE DIAGNOSES: 1. Urinary tract infection with growth of Escherichia coli for which she is on meropenem. 2. Large ovarian tumor with unknown nature. Tumor markers showed that her CA-125 was extremely high at 418. 3. Urinary retention requiring indwelling Manzo catheter. 4. Hyperlipidemia. 5. Hypertension. 6. Parkinson's disease. 7. Chronic constipation. 8. Gastroesophageal reflux disease. 9. Dysphagia. 10. Xerophthalmia. MATTIE STEVENS MD DR: CHAVA/gianfranco JOB#: [id number] / [id number]
--- NOTE | 2018-12-12 22:44 | PN ---
DATE: 12/11/2018 This late entry 12/11/2018, covers elements not covered in my initial note. SUBJECTIVE: I met with the patient in the ICU bed 3 in the evening. Overall, the patient remains somewhat withdrawn, complains of being anxious. She has been stopped from her Seroquel and is tolerating this well. REVIEW OF SYSTEMS: Positive for tiredness. No CV, , pulmonary, eye system symptoms on review. MENTAL STATUS EXAM: Oriented to herself and situation. Speech is moderate latency, often responses monosyllabic. Abstraction fair, computation impaired, language function intact. Mood and affect withdrawn. LABORATORY DATA: Reviewed. IMPRESSION: Unchanged from initial note. PLAN: No change from initial note. MAN Vidal CHAPA MD DR: ANTONIO/gianfranco JOB#: [id number] / [id number]
== END 2018-12-12 15:57 | disposition short-term general hospital (02) | DRG 871 ==
LOC: ICU 22:54
PROVIDERS: ADMIT Internal Medicine; ATTEND Internal Medicine
DX: A41.9 Sepsis, unspecified organism (principal); G21.0 Malignant neuroleptic syndrome; N39.0 Urinary tract infection, site not specified; F31.60 Bipolar disorder, current episode mixed, unspecified; E78.5 Hyperlipidemia, unspecified; I10 Essential (primary) hypertension; Z87.440 Personal history of urinary (tract) infections; Z62.810 Personal history of physical and sexual abuse in childhood; K59.09 Other constipation; K21.9 Gastro-esophageal reflux disease without esophagitis; Z88.6 Allergy status to analgesic agent; Z88.1 Allergy status to other antibiotic agents; Z88.8 Allergy status to other drugs, medicaments and biological substances; B96.20 Unspecified Escherichia coli [E. coli] as the cause of diseases classified elsewhere; R13.10 Dysphagia, unspecified; F41.9 Anxiety disorder, unspecified; F63.9 Impulse disorder, unspecified
CPT/HCPCS: 36415; 80048; 80053; 82550; 85025; 86301; 86304; 87641; J1885; J2185; J3010; J7030